=== PATIENT | female | born 1965 | race Caucasian/White ===

== ENCOUNTER 2016-10-06 08:54 | Emergency (ER) | payer OTHER ==
[~2016-10-06] VITALS: Ht 160 cm; Wt 134.4 kg
[~2016-10-06 08:54] MED LIST: CEFAZOLIN 3000 MG/65 ML D5W IV SCH
[2016-10-06 08:59] VITALS: Ht 160 cm; Wt 134.4 kg
[2016-10-06] MEDS ORDERED: SODIUM CHLORIDE 0.9% 1000ML 1,000 ML IV STA ×2 (09:42→14:16)
[2016-10-06] MEDS ORDERED: ONDANSETRON INJ 2 MG/ML 2 ML VIAL IV STA (09:42)
[2016-10-06] MEDS ORDERED: HYDROmorphone INJ 1 MG/ML SYR IV STA (09:42)
[2016-10-06 09:56] LABS: BASO % 0.3 %; BASO ABS # 0.03 K/uL (0-0.2); COMPLETE YES; EOS % 0.3 %; HEMATOCRIT 40.7 % (37-47); IG% 0.7 %; LYMPH % 13.3 %; LYMPH ABS # 1.56 K/uL (1.2-3.4); MEAN CELL VOLUME 85.7 fL (80-100); MEAN CORPUSCULAR HEMOGLOBIN 29.7 pg (25-34); MEAN CORPUSCULAR HGB CONC 34.6 g/dl (32-36); MEAN PLATELET VOLUME 11.7 fL (7.4-10.4); MONO % 3.8 %; NEUT % 81.6 %; PLATELET COUNT 186 K/uL (130-400); RED BLOOD COUNT 4.75 M/uL (4.2-5.4); WHITE BLOOD COUNT 11.74 K/uL (4.8-10.8)
[2016-10-06 10:03] LABS: URINE APPEARANCE CLEAR (CLEAR); URINE BILIRUBIN NEG (NEG); URINE COLOR YELLOW; URINE EPITHELIAL CELL AUTO >30 /lpf (0-5); URINE NITRITE NEG (NEG); URINE SPECIFIC GRAVITY 1.023 (1.000-1.030); UROBILINOGEN NEG (NEG); ZZUR CULT IF INDIC CLEAN CATCH NO
[2016-10-06 10:07] LABS: MANUAL MICROSCOPIC REQUIRED? NO; REVIEW REQ? NO
[2016-10-06 10:16] LABS: BUN/CREATININE RATIO 16.8 (10-20); CREATININE 0.87 mg/dl (0.60-1.20); MAGNESIUM 1.7 mg/dl (1.8-2.4); POTASSIUM 4.4 mmol/L (3.5-5.1)
[2016-10-06 10:17] LABS: CALCIUM 8.9 mg/dl (8.5-10.1)
[2016-10-06] MEDS ORDERED: INSDGIPEN SC (10:20)
[2016-10-06] MEDS ORDERED: METF-841 PO (10:20)
[2016-10-06] MEDS ORDERED: ATOR-22 PO (10:20)
[2016-10-06] MEDS ORDERED: LSN5 PO (10:20)
--- NOTE | 2016-10-06 10:38 | DIAGNOSTIC IMAGING REPORT ---
ABDOMEN AND PELVIS CT WITHOUT CONTRAST CT DOSE: 1289.64 mGycm HISTORY: Flank pain R flank pain, renal stone? TECHNIQUE: Multiaxial CT images of the abdomen and pelvis were performed without contrast. COMPARISON STUDY: None. FINDINGS: Lung bases are clear. Left kidney is negative for hydronephrosis. There is a 2 mm nonobstructing renal vascular calcification mid pole left kidney. Right kidney demonstrates moderate hydronephrosis. There is mild perinephric infiltrative change. Multiple calcifications the right kidney are present. There is a partially obstructing calculus at the right ureteral pelvic junction measuring 11 x 8 mm. There is no evidence for an obstructing ureteral calcification. Bowel pattern is nonobstructive. Bladder is midline. The appendix is normal. IMPRESSION: 1. Obstructing calculus right ureteral pelvic junction measuring 11 x 8 mm. 2. Moderate right renal hydronephrosis with mild infiltrative change of the right renal perinephric fat. 3. Multiple additional nonobstructing right renal calcifications. Electronically signed by: Shiva Rushing M.D. 10/06/2016 10:36 AM Dictated Date/Time: 10/06/2016 10:33 AM
[2016-10-06] MEDS ORDERED: NovoLIN-R INSULIN PER UNIT CHARGE SC STA (10:51)
[2016-10-06] MEDS ORDERED: HYDROmorphone INJ 1 MG/ML SYR IV PRN (12:30)
--- NOTE | 2016-10-06 14:03 | EMERGENCY ROOM VISIT NOTE ---
History Report prepared by Valeria: Ibis Casas Under the Supervision of: Dr. Jojo Abdullahi M.D. First contact with patient: 09:21 Chief Complaint: FLANK PAIN Stated Complaint: PAIN IN R SIDE, COLD SWEATS, NAUSEOUS History of Present Illness The patient is a 51 year old female who presents to the Emergency Room with complaints of waxing and waning right flank pain that started 4 hours ago, around 0530. The patient states that the pain started in her right lower back then radiated into the right side of her abdomen. She describes the pain as a dull ache that is intermittently sharp. The patient is unsure of if she has experienced any fevers, but states that she has experienced "cold sweats" twice today with the pain. She denies any burning with urination. The patient has a history of a cholecystectomy and 2 sections. She still has her appendix. The patient denies any personal history of kidney stones, but states that she has a family history of kidney stones. The patient has diabetes and states that her blood sugars have been running in the 200s. She uses insulin at home and states that her BSG yesterday morning was 190. The patient has not checked her BSG since then. Source of History: patient Onset: 4 hours ago, around 0530 Position: abdomen (right-sided) Quality: ache, sharp (intermittently), dull Timing: waxes/wanes Associated Symptoms: No urinary symptoms (burning with urination) Note: cold sweats Review of Systems See HPI for pertinent positives & negatives. A total of 10 systems reviewed and were otherwise negative. Past Medical & Surgical Medical Problems: (1) Diabetes (2) Hypertension Surgical Problems: (1) History of section (2) History of cholecystectomy Family History Cancer Diabetes mellitus Gallbladder disease Heart disease Hypertension Kidney disease Kidney stones Social History Smoking Status: Never Smoker Smokeless Tobacco Use: No Alcohol Use: occasionally Marital Status: Housing Status: lives with family Occupation Status: employed Current/Historical Medications Scheduled Atorvastatin (Lipitor), 20 MG PO DAILY Insulin Glargine (Lantus Solostar), 28 UNITS SC HS Lisinopril (Lisinopril), 5 MG PO DAILY Metformin HCl (Metformin HCl ER), 1,000 MG PO BID Allergies Coded Allergies: No Known Allergies (Verified Allergy, Unknown, 11/15/02) Physical Exam Vital Signs Date Time Temp Pulse Resp B/P (MAP) Pulse Ox O2 Delivery O2 Flow Rate FiO2 10/06/16 14:08 78 20 175/104 95 Room Air 10/06/16 11:37 151/90 10/06/16 11:34 74 22 196/118 94 Room Air 10/06/16 08:59 36.7 86 20 96 Room Air Physical Exam Vital signs reviewed. General: Well-appearing female, in no significant distress. HEENT: No scleral icterus, PERRLA, neck supple. Atraumatic. Cardiovascular: Regular rate and rhythm, no extra sounds. Pulmonary: Clear to auscultation bilaterally, normal work of breathing. Abdomen: Soft, obese, nontender, nondistended, positive bowel sounds. Musculoskeletal: Atraumatic, mild right flank tenderness, no peripheral edema. Neurologic: Patient awake alert and oriented x 3 Skin: Warm, dry, no rash Medical Decision & Procedures ER Provider Diagnostic Interpretation: CT results as stated below per my review and radiologist interpretation: ABDOMEN AND PELVIS CT WITHOUT CONTRAST FINDINGS: Lung bases are clear. Left kidney is negative for hydronephrosis. There is a 2 mm nonobstructing renal vascular calcification mid pole left kidney. Right kidney demonstrates moderate hydronephrosis. There is mild perinephric infiltrative change. Multiple calcifications the right kidney are present. There is a partially obstructing calculus at the right ureteral pelvic junction measuring 11 x 8 mm. There is no evidence for an obstructing ureteral calcification. Bowel pattern is nonobstructive. Bladder is midline. The appendix is normal. IMPRESSION: 1. Obstructing calculus right ureteral pelvic junction measuring 11 x 8 mm. 2. Moderate right renal hydronephrosis with mild infiltrative change of the right renal perinephric fat. 3. Multiple additional nonobstructing right renal calcifications. Electronically signed by: Shiva Rushing M.D. 10/06/2016 10:36 AM Dictated Date/Time: 10/06/2016 10:33 AM Laboratory Results 10/06/16 09:35 Red Blood Count 4.75, Mean Corpuscular Volume 85.7, Mean Corpuscular Hemoglobin 29.7, Mean Corpuscular Hemoglobin Concent 34.6, Mean Platelet Volume 11.7, Neutrophils (%) (Auto) 81.6, Lymphocytes (%) (Auto) 13.3, Monocytes (%) (Auto) 3.8, Eosinophils (%) (Auto) 0.3, Basophils (%) (Auto) 0.3, Neutrophils # (Auto) 9.59, Lymphocytes # (Auto) 1.56, Monocytes # (Auto) 0.45, Eosinophils # (Auto) 0.03, Basophils # (Auto) 0.03 10/06/16 09:35 Test 10/06/16 09:35 10/06/16 12:02 White Blood Count 11.74 K/uL (4.8-10.8) Red Blood Count 4.75 M/uL (4.2-5.4) Hemoglobin 14.1 g/dL (12.0-16.0) Hematocrit 40.7 % (37-47) Mean Corpuscular Volume 85.7 fL (80-100) Mean Corpuscular Hemoglobin 29.7 pg (25-34) Mean Corpuscular Hemoglobin Concent 34.6 g/dl (32-36) Platelet Count 186 K/uL (130-400) Mean Platelet Volume 11.7 fL (7.4-10.4) Neutrophils (%) (Auto) 81.6 % Lymphocytes (%) (Auto) 13.3 % Monocytes (%) (Auto) 3.8 % Eosinophils (%) (Auto) 0.3 % Basophils (%) (Auto) 0.3 % Neutrophils # (Auto) 9.59 K/uL (1.4-6.5) Lymphocytes # (Auto) 1.56 K/uL (1.2-3.4) Monocytes # (Auto) 0.45 K/uL (0.11-0.59) Eosinophils # (Auto) 0.03 K/uL (0-0.5) Basophils # (Auto) 0.03 K/uL (0-0.2) RDW Standard Deviation 39.9 fL (36.4-46.3) RDW Coefficient of Variation 12.6 % (11.5-14.5) Immature Granulocyte % (Auto) 0.7 % Immature Granulocyte # (Auto) 0.08 K/uL (0.00-0.02) Urine Color YELLOW Urine Appearance CLEAR (CLEAR) Urine pH 5.0 (4.5-7.5) Urine Specific [place] 1.023 (1.000-1.030) Urine Protein NEG (NEG) Urine Glucose (UA) 3+ (NEG) Urine Ketones 1+ (NEG) Urine Occult Blood NEG (NEG) Urine Nitrite NEG (NEG) Urine Bilirubin NEG (NEG) Urine Urobilinogen NEG (NEG) Urine Leukocyte Esterase TRACE (NEG) Urine WBC (Auto) 5-10 /hpf (0-5) Urine RBC (Auto) 0-4 /hpf (0-4) Urine Hyaline Casts (Auto) 1-5 /lpf (0-5) Urine Epithelial Cells (Auto) >30 /lpf (0-5) Urine Bacteria (Auto) NEG (NEG) Urine Test NEG (NEG) Anion Gap 11.0 mmol/L (3-11) Est Creatinine Clear Calc Drug Dose 102.9 ml/min Estimated GFR () 89.4 Estimated GFR (Non- 77.1 BUN/Creatinine Ratio 16.8 (10-20) Calcium Level 8.9 mg/dl (8.5-10.1) Magnesium Level 1.7 mg/dl (1.8-2.4) Total Bilirubin 0.5 mg/dl (0.2-1) Direct Bilirubin 0.1 mg/dl (0-0.2) Aspartate Amino Transf (AST/SGOT) 21 U/L (15-37) Alanine Aminotransferase (ALT/SGPT) 34 U/L (12-78) Alkaline Phosphatase 114 U/L (45-117) Total Protein 7.4 gm/dl (6.4-8.2) Albumin 3.6 gm/dl (3.4-5.0) Lipase 147 U/L (73-393) Bedside Glucose 258 mg/dl (70-90) Laboratory results per my review. Medications Administered Medications (Trade) Dose Ordered Sig/Loren Route Start Time Stop Time Status Last Admin Dose Admin Sodium Chloride 1,000 ml @ 999 mls/hr Q1H1M STAT IV 10/06/16 09:42 10/06/16 10:42 DC 10/06/16 09:52 999 MLS/HR Hydromorphone HCl (Dilaudid Inj) 1 mg NOW STAT IV 10/06/16 09:42 10/06/16 09:44 DC 10/06/16 09:53 1 MG Ondansetron HCl (Zofran Inj) 4 mg NOW STAT IV 10/06/16 09:42 10/06/16 09:44 DC 10/06/16 09:53 4 MG Insulin Human Regular (novoLIN-R U-100 PER UNIT) 10 units NOW STAT TN 10/06/16 10:51 10/06/16 10:53 DC 10/06/16 11:35 10 UNITS ED Course 0935: Past medical records reviewed. The patient was evaluated in room B3. A complete history and physical examination was performed. 0942: Ordered Zofran Inj 4 mg IV, Dilaudid Inj 1 mg IV, Sodium Chloride 1000 ml @ 999 mls/hr IV 1051: Ordered Insulin Human Regular 10 units SC 1139: I reviewed the patient's case with Dr. Juliano Cottrell. She is going to place a stent for the patient around 1630. She will then discharge the patient. 1230: Ordered Dilaudid Inj 1 mg IV 1231: Upon reevaluation, the patient is resting comfortably. I discussed laboratory and radiographic results with her. She verbalized agreement of the treatment plan. I spoke with Dr. Juliano Cottrell. She is going to evaluate the patient for further management and care then she will discharge her home. Medical Decision Differentials include renal colic, appendicitis, diverticulitis, mesenteric ischemia, aortic pathology, infections, inflammatory bowel disease, PUD, biliary pathology, UTI. Medication Reconciliation: I attest that I have personally reviewed the patient' s current medication list. Blood Pressure Screening: Patient was found to have an elevated blood pressure and was referred to their primary doctor for recheck and further treatment. This patient was evaluated and appeared to be in no significant distress. Physical examination is fairly unrevealing. The patient does have mild right- sided abdominal discomfort. CT scan of the abdomen and pelvis was performed and reveals an 11 m stone at the proximal ureter on the right. The patient was given IV Dilaudid, IV Zofran and hydrated with normal saline solution. UA is negative for infection. The patient's case was discussed with Dr. Henao of urology who has agreed to place a ureteral stent in the patient later this afternoon. They can then address the stone electively as an outpatient. The patient was informed of the findings and agrees with the plan. She was observed in the ER for several hours until oh or became available. Consults Time Called: [phone] Consulting Physician: Dr. Juliano Cottrell Returned Call: [phone] I reviewed the patient's case with Dr. Henao - Urology. She is going to place a stent for the patient around 1630. She will then discharge the patient. Impression Primary Impression: Kidney stone on right side Scribe Attestation The scribe's documentation has been prepared under my direction and personally reviewed by me in its entirety. I confirm that the note above accurately reflects all work, treatment, procedures, and medical decision making performed by me. Departure Information Dispostion Other (Being Evaluated by Urologist) Referrals No Doctor, Assigned (PCP) Patient Instructions My [facility]
[2016-10-06 14:08] VITALS: O2SAT 95
[2016-10-06] MEDS ORDERED: LIDOCAINE HCL 2% 2 ML VIAL (20MG/ML) ONE (14:25)
[2016-10-06] MEDS ORDERED: MIDAZOLAM HCL 1 MG/ML 2ML VIAL ONE (14:25)
[2016-10-06] MEDS ORDERED: ONDANSETRON INJ 2 MG/ML 2 ML VIAL ONE (14:25)
[2016-10-06] MEDS ORDERED: PROPOFOL IV EMULSION 10 MG/ML 20 ML VIAL IV ONE (14:25)
[2016-10-06] MEDS ORDERED: FENTANYL CITRATE INJ 50 MCG/1 ML 2 ML VIAL ONE (14:25)
[2016-10-06 14:26] LABS: PREG INTERNAL NEGATIVE QC NEG CLEAR BACKGROUND; PREG INTERNAL POSITIVE QC POS CONTROL LINE
[2016-10-06] MEDS ORDERED: CEFAZOLIN IV 3,000 MG/65 ML D5W IV ONE (15:33)
--- NOTE | 2016-10-06 15:40 | History and Physical ---
History Date of Service: Oct 06, 2016. Chief Complaint: right kidney and ureteral stones Primary Care Physician: Zulma Tripp D.O. Pt seen a urologist before?: No History of Present Illness I am asked by Dr Abdullahi to evaluate and treat patient for kidney stones. She presents to ER with severe right flank pain. She has associated nausea.. She has not had emesis. she has not had stones in past but she had similar milder pain last year. Her ct shows an obstructing right upj stone and 3 other large right renal stones. Imaging CT Laboratory Results Past 24 Hours Test 10/06/16 09:35 10/06/16 12:02 Range/Units White Blood Count 11.74 4.8-10.8 K/uL Red Blood Count 4.75 4.2-5.4 M/uL Hemoglobin 14.1 12.0-16.0 g/dL Hematocrit 40.7 37-47 % Mean Corpuscular Volume 85.7 80-100 fL Mean Corpuscular Hemoglobin 29.7 25-34 pg Mean Corpuscular Hemoglobin Concent 34.6 32-36 g/dl Platelet Count 186 130-400 K/uL Mean Platelet Volume 11.7 7.4-10.4 fL Neutrophils (%) (Auto) 81.6 % Lymphocytes (%) (Auto) 13.3 % Monocytes (%) (Auto) 3.8 % Eosinophils (%) (Auto) 0.3 % Basophils (%) (Auto) 0.3 % Neutrophils # (Auto) 9.59 1.4-6.5 K/uL Lymphocytes # (Auto) 1.56 1.2-3.4 K/uL Monocytes # (Auto) 0.45 0.11-0.59 K/uL Eosinophils # (Auto) 0.03 0-0.5 K/uL Basophils # (Auto) 0.03 0-0.2 K/uL RDW Standard Deviation 39.9 36.4-46.3 fL RDW Coefficient of Variation 12.6 11.5-14.5 % Immature Granulocyte % (Auto) 0.7 % Immature Granulocyte # (Auto) 0.08 0.00-0.02 K/uL Urine Color YELLOW Urine Appearance CLEAR CLEAR Urine pH 5.0 4.5-7.5 Urine Specific Sharon 1.023 1.000-1.030 Urine Protein NEG NEG Urine Glucose (UA) 3+ NEG Urine Ketones 1+ NEG Urine Occult Blood NEG NEG Urine Nitrite NEG NEG Urine Bilirubin NEG NEG Urine Urobilinogen NEG NEG Urine Leukocyte Esterase TRACE NEG Urine WBC (Auto) 5-10 0-5 /hpf Urine RBC (Auto) 0-4 0-4 /hpf Urine Hyaline Casts (Auto) 1-5 0-5 /lpf Urine Epithelial Cells (Auto) >30 0-5 /lpf Urine Bacteria (Auto) NEG NEG Urine Test NEG NEG Sodium Level 137 136-145 mmol/L Potassium Level 4.4 3.5-5.1 mmol/L Chloride Level 101 98-107 mmol/L Carbon Dioxide Level 25 21-32 mmol/L Anion Gap 11.0 3-11 mmol/L Blood Urea Nitrogen 15 7-18 mg/dl Creatinine 0.87 0.60-1.20 mg/dl Est Creatinine Clear Calc Drug Dose 102.9 ml/min Estimated GFR () 89.4 Estimated GFR (Non- 77.1 BUN/Creatinine Ratio 16.8 10-20 Random Glucose 300 70-99 mg/dl Calcium Level 8.9 8.5-10.1 mg/dl Magnesium Level 1.7 1.8-2.4 mg/dl Total Bilirubin 0.5 0.2-1 mg/dl Direct Bilirubin 0.1 0-0.2 mg/dl Aspartate Amino Transf (AST/SGOT) 21 15-37 U/L Alanine Aminotransferase (ALT/SGPT) 34 12-78 U/L Alkaline Phosphatase 114 45-117 U/L Total Protein 7.4 6.4-8.2 gm/dl Albumin 3.6 3.4-5.0 gm/dl Lipase 147 73-393 U/L Bedside Glucose 258 70-90 mg/dl Labs were reviewed and are within normal limits unless listed below. Labs are available in the chart and at [facility] Problem List Medical Problems: (1) Diabetes Status: Chronic (2) Hypertension Status: Chronic (3) Kidney stone on right side Status: Acute Surgical Problems: (1) History of section Status: Chronic (2) History of cholecystectomy Status: Chronic Past History Past Medical History: diabetes, hypertension Past Surgical History: , cholecystectomy Family History Cancer Diabetes mellitus Gallbladder disease Heart disease Hypertension Kidney disease Kidney stones Social History Hx Tobacco Use In Past Year?: No Smoking: non-smoker Alcohol: socially Marital status: Housing status: lives with family Occupation status: employed History of MDRO No Allergies Coded Allergies: No Known Allergies (Verified Allergy, Unknown, 11/15/02) Medications Home Medications: Home Meds and Scripts Medications Dose Route/Sig Max Daily Dose Days Date Category Dose Instructions Lisinopril 5 Mg Tab 5 Mg PO DAILY 10/06/16 Reported Lipitor (Atorvastatin Calcium) 20 Mg Tab 20 Mg PO DAILY 10/06/16 Reported Metformin HCl ER (Metformin HCl) 1,000 Mg Tab 1,000 Mg PO BID 10/06/16 Reported Lantus Solostar (Insulin Glargine) 100 Unit/Ml Inj 28 Units SC HS 10/06/16 Reported PATIENT SAYS 35 UNITS AT BEDTIME Inpatient Medications: Current Inpatient Medications Medications (Trade) Dose Ordered Sig/Loren Route Start Time Stop Time Status Last Admin Dose Admin Hydromorphone HCl (Dilaudid Inj) 1 mg Q1HWA PRN IV 10/06/16 12:30 10/20/16 12:29 Sodium Chloride 1,000 ml @ 125 mls/hr Q8H STAT IV 10/06/16 14:16 10/06/16 22:15 Review of Systems Review of Systems Constitutional: No fever, No chills, No frequent headaches Endocrine: No excessive thirst, No too hot, No too cold, No tired/sluggish Gastrointestinal: + nausea, No vomiting, No constipation Cardiovascular: No chest pain, No palpitations Respiratory: No shortness of breath, No wheezing, No chronic cough Female : + kidney stones, No frequent urination Physical Exam Vital Signs: Vital Signs Past 12 Hours Date Time Temp Pulse Resp B/P (MAP) Pulse Ox O2 Delivery O2 Flow Rate FiO2 10/06/16 14:08 78 20 175/104 95 Room Air 10/06/16 11:37 151/90 10/06/16 11:34 74 22 196/118 94 Room Air 10/06/16 08:59 36.7 86 20 96 Room Air Physical Exam: General Appearance: WD/WN, no apparent distress, + obese Eyes: bilateral eyes normal inspection ENT: hearing grossly normal Neck: no adenopathy, no JVD, trachea midline Respiratory/Chest: no respiratory distress, no accessory muscle use Cardiovascular: regular rate, rhythm Extremities: non-tender, normal inspection, no pedal edema Neurologic/Psychiatric: alert, normal mood/affect, oriented x 3 Skin: normal color, warm/dry, no rash Lymphatic: no adenopathy Assessment & Plan Assessment & Plan large right stones plan stent today in OR under iv sedation plan right ureteroscopy in 2 weeks to remove stones. she is agreeable to plan and signed consent ancef biometrics consultant.
[2016-10-06] MEDS ORDERED: LABETALOL HCL IV 5 MG/ML 20ML IV ONE ×2 (15:57→16:22)
[2016-10-06] MEDS ORDERED: BELLADONNA/OPIUM SUPP 60 MG SUPP PR ONE ×2 (16:02)
--- NOTE | 2016-10-06 16:15 | [facility] Operative Report ---
Operative Report Operative Date Oct 06, 2016. Pre-Operative Diagnosis obstructing right ureteral stone Post-Operative Diagnosis same Procedure(s) Performed cysto right stent Surgeon Dr. 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 we plan stent to stage surgery. Description of Procedure Patient was sedated and placed in lithotomy position. Her genitals were prepped and draped in sterile fashion. Time out held with team. Her obesity makes exposure of the urethral meatus difficult due to large amount soft tissue. She also is under light sedation and scoots away with attempts at adequate manual retraction of the labia. I finally placed a half speculum to gain visualization of the urethra and placed cystoscope. I placed a 21 fr rigid cystoscope to bladder. The urethra is unremarkable. The UOs are laterally displaced. I placed a road runner wire up right ureter and placed a 24 centimeter 6 Fr double J stent easily. There is brisk efflux after placement. I left bladder empty and concluded case. I placed a belladonna and opium suppository for post-op pain. She transferred to recovery under my escort, in stable condition. 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 Any exceptions are noted below.
[2016-10-06] MEDS ORDERED: PHEN-775 PO (16:17)
[2016-10-06] MEDS ORDERED: TAMS0.4C38 PO (16:17)
[2016-10-06] MEDS ORDERED: OXYC-57 PO (16:17)
--- NOTE | 2016-10-06 16:17 | DIAGNOSTIC IMAGING REPORT ---
KUB HISTORY: Right UPJ obstructing stone. FLUOROSCOPY TIME: 7 seconds. FINDINGS: 3 fluoroscopic spot images were submitted for review. There is a guidewire seen within the right ureter placed within a retrograde fashion. This extends into the right renal pelvis. There appears to be a stone near the right renal pelvis IMPRESSION: Fluoroscopy provided for right ureteral stent placement. Electronically signed by: Johnathon Hood M.D. 10/06/2016 4:16 PM Dictated Date/Time: 10/06/2016 4:15 PM
[2016-10-06] MEDS ORDERED: NURSING VERBAL MED ORDER ONE ×3 (16:20→16:43)
--- NOTE | 2016-10-06 16:21 | Discharge Instructions ---
Discharge Instructions Date of Service Oct 06, 2016. Admission Reason for Admission: Pain In R Side, Cold Sweats, Nauseous Discharge Discharge Diagnosis / Problem: right ureteral stone with obstruction Discharge Goals Goal(s): Decrease discomfort, Improve function, Improve disease control Activity Recommendations Activity Limitations: resume your previous activity Lifting Limitations: none Exercise/Sports Limitations: none May Resume Sexual Activity: when tolerated Shower/Bathe: no limitations Driving or Machine Use: resume 1 day after discharge . Instructions / Follow-Up Instructions / Follow-Up may return to work on Saturday October 08, 2016 no restrictions you may have bleeding from genitals the stent will make you feel like you need to pass your urine more often Use tylenol or ibuprofen for mild to moderate pain. use narcotic only for severe pain. do not take narcotic at bedtime as you are at high risk for sleep apnea and sudden from narcotics depressing breathing while asleep. Discharge Diet Recommended Diet: Diabetes Type 2 Diet Fluid Restriction: None Procedures Procedures Performed: cystoscopy, placement of right ureteral stent Pending Studies Studies pending at discharge: no Medical Emergencies . Who to Call and When: Medical Emergencies: If at any time you feel your situation is an emergency, please call 911 immediately. . Non-Emergent Contact Non-Emergency issues call your: Urologist ([phone]) Call Non-Emergent contact if: temperature is above 100.5, your pain is not controlled . . "Provider Documentation" section prepared by Sharona Henao. . VTE Core Measure Inpt VTE Proph given/why not?: SCD's [place] Drug Monitoring Program Search Results: patient reviewed within database, no issues identified
[2016-10-06] MEDS ORDERED: NovoLIN-R INSULIN PER UNIT CHARGE ONE (16:23)
[2016-10-06] MEDS ORDERED: HydrALAZINE HCL 20 MG/ML VIAL ONE (16:43)
[2016-10-06] MEDS ORDERED: ONDANSETRON INJ 2 MG/ML 2 ML VIAL IV PRN (16:45)
[2016-10-06] MEDS ORDERED: FENTANYL CITRATE INJ 50 MCG/1 ML 2 ML VIAL IV PRN (16:45)
[2016-10-06] MEDS ORDERED: ATROPINE SULFATE 0.1 MG/ML 5ML SYR IV PRN (16:45)
[2016-10-06] MEDS ORDERED: EpHEDrine SULFATE INJ 50 MG/ML AMP IV PRN (16:45)
--- NOTE | 2016-10-06 17:06 | Anesthesiology Progress Note ---
Anesthesia Post Op Note Date & Time Oct 06, 2016 at 17:06 Vital Signs Pain Intensity: 0 Vital Signs Past 12 Hours Date Time Temp Pulse Resp B/P (MAP) Pulse Ox O2 Delivery O2 Flow Rate FiO2 10/06/16 16:45 79 16 175/88 92 Room Air 10/06/16 16:35 83 16 186/95 94 Room Air 10/06/16 16:25 83 16 189/93 98 Oxymask 10 10/06/16 16:15 83 16 182/103 98 Oxymask 10 10/06/16 16:09 36.4 83 16 178/98 98 Oxymask 10 10/06/16 14:08 78 20 175/104 95 Room Air 10/06/16 11:37 151/90 10/06/16 11:34 74 22 196/118 94 Room Air 10/06/16 08:59 36.7 86 20 96 Room Air Notes Mental Status: alert / awake / arousable, participated in evaluation Pt Amnestic to Procedure: Yes Nausea / Vomiting: adequately controlled Pain: adequately controlled Airway Patency, RR, SpO2: stable & adequate BP & HR: stable & adequate Hydration State: stable & adequate Anesthetic Complications: no major complications apparent
[2016-10-06 17:10] VITALS: BP 153/89; PULSE 88; TEMP 36.9; O2SAT 94
[2016-10-06 17:40] VITALS: BP 167/96; PULSE 74; TEMP 37; O2SAT 94
[2016-10-06 18:00] VITALS: BP 166/92; PULSE 82; TEMP 37; O2SAT 95
[2016-10-17] MEDS ORDERED: ANTICRE6 PO (10:09)
[2016-10-17] MEDS ORDERED: ASPI-435 PO (10:09)
[2016-10-22] MEDS ORDERED: TAMS0.4C38 PO ×2 (07:20→10:36)
[2016-10-22] MEDS ORDERED: PHEN-775 PO (10:36)
[2016-10-22] MEDS ORDERED: OXYC1CAP5 PO (10:36)
[2016-12-12] MEDS ORDERED: ULT50X PO (12:03)
[2016-12-12] MEDS ORDERED: FLM4 PO (12:03)
[2016-12-12] MEDS ORDERED: INSDGIPEN SC (12:03)
[2016-12-12] MEDS ORDERED: NVLGIPEN SC (12:03)
[2016-12-12] MEDS ORDERED: CEFT1INJ6 IV (12:03)
[2016-12-15] MEDS ORDERED: VNTHFA/IN INH (09:13)
[2016-12-15] MEDS ORDERED: FLM4 PO (09:13)
[2016-12-15] MEDS ORDERED: CEFT1INJ57 IV ×2 (09:16→09:36)
[2016-12-15] MEDS ORDERED: OXYC-57 PO (09:18)
[2016-12-15] MEDS ORDERED: INSDGIPEN INJ (09:36)
[2016-12-15] MEDS ORDERED: NVLG INJ (09:36)
[2016-12-17] MEDS ORDERED: FLM4 PO (10:54)
[2016-12-17] MEDS ORDERED: OXYC-57 PO (10:54)
== END 2016-10-06 14:14 | disposition home or self-care (01) ==
LOC: C.EDB 08:55
DX: N20.1 Calculus of ureter (principal); I10 Essential (primary) hypertension; E11.9 Type 2 diabetes mellitus without complications; Z90.49 Acquired absence of other specified parts of digestive tract; Z79.4 Long term (current) use of insulin; E66.9 Obesity, unspecified; Z68.43 Body mass index [BMI] 50.0-59.9, adult; Z83.3 Family history of diabetes mellitus; Z82.49 Family history of ischemic heart disease and other diseases of the circulatory system; Z84.1 Family history of disorders of kidney and ureter; Z80.9 Family history of malignant neoplasm, unspecified

== ENCOUNTER 2016-10-22 06:32 | Day surgery (SDC) | payer OTHER ==
[2016-10-17 10:15] VITALS: BMI 50.0
[~2016-10-22] VITALS: Ht 162.6 cm; Wt 132.5 kg
[~2016-10-22 06:32] MED LIST changes: +ANTICRE6 PO; +ASPI-435 PO; +ATOR-22 PO; +INSDGIPEN SC; +LACTATED RINGER'S 1000ML 1,000 ML IV SCH; +LSN5 PO; +METF-841 PO
--- NOTE | 2016-10-22 07:18 | History and Physical ---
History Date of Service: Oct 22, 2016. Chief Complaint: kidney stones Primary Care Physician: Zulma Tripp D.O. Pt seen a urologist before?: Yes If yes, why?: stones History of Present Illness Patient presents for stone removal surgery. She was urgently stented 2 weeks ago from the ER. She has an obstructing right ureteral stone. Stent pain has been mild. Laboratory Labs were reviewed and are within normal limits unless listed below. Labs are available in the chart and at [facility] Problem List Medical Problems: (1) Kidney stone on right side Status: Acute Past History Past Medical History: diabetes, hypertension, other (obesity ) Past Surgical History: , cholecystectomy Family History Cancer Diabetes mellitus Gallbladder disease Heart disease Hypertension Kidney disease Kidney stones Social History Hx Tobacco Use In Past Year?: No Smoking: non-smoker Alcohol: socially Marital status: Housing status: lives with family Occupation status: employed History of MDRO No Allergies Coded Allergies: No Known Allergies (Verified , 10/17/16) Medications Home Medications: Home Meds and Scripts Medications Dose Route/Sig Max Daily Dose Days Date Category [Antibiotic] 1 Tab PO HS 10/17/16 Reported Aspirin 81 (Aspirin) 81 Mg Tab 81 Mg PO QAM 10/17/16 Reported Lisinopril 5 Mg Tab 5 Mg PO DAILY 10/06/16 Reported Lipitor (Atorvastatin Calcium) 20 Mg Tab 20 Mg PO DAILY 10/06/16 Reported Metformin HCl ER (Metformin HCl) 1,000 Mg Tab 1,000 Mg PO BID 10/06/16 Reported Lantus Solostar (Insulin Glargine) 100 Unit/Ml Inj 36 Units SC HS 10/06/16 Reported Inpatient Medications: Current Inpatient Medications Medications (Trade) Dose Ordered Sig/Loren Route Start Time Stop Time Status Last Admin Dose Admin Lactated Ringer's 1,000 ml @ 15 mls/hr Q24H IV 10/22/16 06:00 10/23/16 05:59 Cefazolin Sodium 65 ml @ 100 mls/hr PREOP IV 10/22/16 06:00 10/22/16 18:00 Review of Systems Review of Systems Constitutional: No fever, No chills Gastrointestinal: No abdominal pain, No nausea, No vomiting Cardiovascular: No chest pain, No palpitations Respiratory: No shortness of breath, No chronic cough Female : + frequent urination, + blood in urine, + kidney stones Physical Exam Physical Exam: General Appearance: WD/WN, no apparent distress, + obese Eyes: bilateral eyes normal inspection ENT: hearing grossly normal Respiratory/Chest: lungs clear, normal breath sounds, no respiratory distress, no accessory muscle use Cardiovascular: regular rate, rhythm, no edema Extremities: non-tender, normal inspection, no pedal edema, no calf tenderness Neurologic/Psychiatric: alert, normal mood/affect, oriented x 3 Skin: normal color, warm/dry, no rash Assessment & Plan Assessment & Plan obstructing right ureteral stone plan cysto right ureteroscopy laser lithotripsy basket stone extraction stent exchange 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
[2016-10-22] MEDS ORDERED: TAMS0.4C38 PO ×2 (07:20→10:36)
[2016-10-22] MEDS ORDERED: MULT-506 PO (07:21)
[2016-10-22 07:30] VITALS: BP 174/80; PULSE 81; TEMP 36.7; O2SAT 95; Ht 162.6 cm; Wt 132.5 kg
[2016-10-22] MEDS ORDERED: MIDAZOLAM HCL 1 MG/ML 2ML VIAL ONE (07:59)
[2016-10-22] MEDS ORDERED: DEXAMETHASONE SOD INJ 4 MG/ML VIAL ONE (07:59)
[2016-10-22] MEDS ORDERED: LIDOCAINE HCL 2% 2 ML VIAL (20MG/ML) ONE (07:59)
[2016-10-22] MEDS ORDERED: FENTANYL CITRATE INJ 50 MCG/1 ML 2 ML VIAL ONE ×2 (07:59→09:01)
[2016-10-22] MEDS ORDERED: PROPOFOL IV EMULSION 10 MG/ML 20 ML VIAL IV ONE (07:59)
[2016-10-22] MEDS ORDERED: ONDANSETRON INJ 2 MG/ML 2 ML VIAL ONE (07:59)
[2016-10-22] MEDS ORDERED: FENTANYL CITRATE INJ 50 MCG/1 ML 2 ML VIAL IV PRN ×2 (08:45→09:15)
[2016-10-22] MEDS ORDERED: ONDANSETRON INJ 2 MG/ML 2 ML VIAL IV PRN ×2 (08:45→09:15)
[2016-10-22] MEDS ORDERED: EpHEDrine SULFATE INJ 50 MG/ML AMP IV PRN ×2 (08:45→09:15)
[2016-10-22] MEDS ORDERED: ATROPINE SULFATE 0.1 MG/ML 5ML SYR IV PRN ×2 (08:45→09:15)
[2016-10-22] MEDS ORDERED: PROMETHAZINE HCL INJ 6.25 MG in SODIUM CHLORIDE 0.9% 50ML 50 ML IV PRN ×2 (08:45→09:15)
[2016-10-22] MEDS ORDERED: FLUMAZENIL 0.1 MG/1 ML 10 ML VIAL IV ONE (08:58)
[2016-10-22] MEDS ORDERED: ROCURONIUM BROMIDE 10 MG/ML 5 ML VIAL ONE (09:54)
[2016-10-22] MEDS ORDERED: SUCCINYLCHOLINE 100MG/5ML SYR IV ONE (09:54)
[2016-10-22] MEDS ORDERED: BELLADONNA/OPIUM SUPP 60 MG SUPP PR ONE (10:11)
--- NOTE | 2016-10-22 10:31 | [facility] Operative Report ---
Operative Report Operative Date Oct 22, 2016. Pre-Operative Diagnosis Right renal stones Post-Operative Diagnosis same Procedure(s) Performed cysto right ureteroscopy laser lithotripsy basket stone extraction stent exchange Surgeon Dr. Sharona Henao Paper Winder Surgeon(s) None Estimated Blood Loss 3 mL Findings radio-opaque dense kidney stones Fluids 1200mL Specimens Permanent specimens A: Right renal stones for analysis Drains 6 fr 24 centimeter double j stent right ureter Anesthesia GET Complication(s) None Disposition Recovery Room / PACU Indications intermittently obstructing right UPJ stone caused colic in September. she was stented and now we plan to treat her 4 medium sized right kidney stones. Description of Procedure Patient was given general GET anesthesia and placed in lithotomy position. Her genitals were prepped and draped in sterile fashion. Time out held with team. I placed a half speculum in vagina to aid retraction. I placed a 21 fr rigid cystoscope to bladder easily. The urethra is unremarkable. The UOs are normal. Her stent is moderately encrusted already. I grasped stent tip and withdrew to meatus. I placed a stiff wire up right ureter thru stent to kidney and removed stent and found it to be intact. I then placed a second wire up right ureter. I placed a 1214 28 centimeter ureteral access sheath over the second wire to upper ureter. I placed a flex ureteroscope into kidney. I spent 90 minutes lasering the 4 large hard stones on the dusting setting of the holmium laser with the 200 micron fiber. I then removed about a dozen fragments. There are some small pieces and one large rind in a lower pole lateral recess of a calyx which I cannot reach today. I withdrew scope and sheath and ensured there were no ureteral fragments. I placed a 24 centimeter 6 Fr double J stent easily. There is brisk efflux after placement. I left bladder empty and concluded case. I placed a belladonna and opium suppository for post-op pain. She transferred to recovery under my escort, in stable condition. Plan: Home today Pyridium for dysuria x 3 days flomax daily oral pain meds as needed stent removal in one week kub prior ASA [] clean contaminated case [] seconds fluoro [] antibiotic environmental change analyst I attest to the content of the Intraoperative Record and any orders documented therein. Any exceptions are noted below.
[2016-10-22] MEDS ORDERED: OXYC1CAP5 PO (10:36)
[2016-10-22] MEDS ORDERED: PHEN-775 PO (10:36)
--- NOTE | 2016-10-22 10:40 | Discharge Instructions ---
Discharge Instructions Date of Service Oct 22, 2016. Admission Reason for Admission: Kidney Stones Discharge Discharge Diagnosis / Problem: right renal stones. Discharge Goals Goal(s): Improve disease control Activity Recommendations Activity Limitations: resume your previous activity Lifting Limitations: none Exercise/Sports Limitations: none May Resume Sexual Activity: when tolerated Shower/Bathe: no limitations Driving or Machine Use: resume 1 day after discharge . Instructions / Follow-Up Instructions / Follow-Up urine may be bloody for many days call with fever or uncontrolled pain try to use tylenol (500-650 mg every 4 hours and ibuprofen 800mg every 8 hours with food) for mild to moderate pain use oxycodone every 8 hours for severe pain. Do not use narcotic at bedtime due to risk of sleep apnea. we will take stent out next week. need an x-ray immediately prior to stent removal. Discharge Diet Recommended Diet: Diabetes Type 2 Diet Fluid Restriction: 2000 ml (8 cups) Procedures Procedures Performed: Cystoscopy, Right Flexible Ureteroscopy, Laser Lithotripsy, Basket Stone Extraction; Stent exchange Pending Studies Studies pending at discharge: no Medical Emergencies . Who to Call and When: Medical Emergencies: If at any time you feel your situation is an emergency, please call 911 immediately. . Non-Emergent Contact Non-Emergency issues call your: Urologist ([phone]) Call Non-Emergent contact if: temperature is above 100.5, your pain is not controlled . . "Provider Documentation" section prepared by Sharona Henao. . VTE Core Measure Inpt VTE Proph given/why not?: SCD's [place] Drug Monitoring Program Search Results: patient reviewed within database, no issues identified
[2016-10-22 11:30] VITALS: BP 173/83; PULSE 86; TEMP 36.8; O2SAT 88
--- NOTE | 2016-10-22 11:49 | Anesthesiology Progress Note ---
Anesthesia Post Op Note Date & Time Oct 22, 2016 at 11:48 Vital Signs Pain Intensity: 1 Vital Signs Past 12 Hours Date Time Temp Pulse Resp B/P (MAP) Pulse Ox O2 Delivery O2 Flow Rate FiO2 10/22/16 11:30 36.8 86 16 173/83 88 Room Air 10/22/16 11:15 36.4 94 16 180/105 94 Nasal Cannula 3 10/22/16 11:05 36.4 81 16 173/96 94 Nasal Cannula 3 10/22/16 10:55 84 16 165/99 93 Nasal Cannula 3 10/22/16 10:45 88 16 168/109 94 Mask 10 10/22/16 10:35 90 16 165/106 93 Mask 10 10/22/16 10:27 36.2 96 16 145/110 94 Mask 10 10/22/16 07:30 36.7 81 20 174/80 (111) 95 Room Air Notes Mental Status: alert / awake / arousable, participated in evaluation Pt Amnestic to Procedure: Yes Nausea / Vomiting: adequately controlled Pain: adequately controlled Airway Patency, RR, SpO2: stable & adequate BP & HR: stable & adequate Hydration State: stable & adequate Anesthetic Complications: no major complications apparent Diastolics were initially >100 in PACU. With awakening and weaning of O2, diastolics in 80s at the time of dispo without any interventions.
[2016-10-22 11:58] VITALS: BP 183/87; PULSE 84; O2SAT 94
--- NOTE | 2016-10-22 12:06 | DIAGNOSTIC IMAGING REPORT ---
KUB CLINICAL HISTORY: 51 year-old Female presenting with RIGHT LASER/LITHO AND STENT EXCHANGE. TECHNIQUE: 5 fluoroscopic spot images of the right ureter were obtained as part of a procedure performed by urology. COMPARISON: 10/06/2016. FINDINGS/IMPRESSION: A double-J right ureteral stent is noted in place at the start of the procedure. A wire was passed through the stent into the right urinary collecting system to the renal pelvis. A second wire was subsequently evident. The first stent was removed, and a second stent was passed over the second wire. The second stent appeared in good position at the conclusion of the procedure, terminating in the right renal pelvis and urinary bladder. Normal bowel gas pattern. Osseous structures unremarkable. Please refer to the urologic report for documentation of further procedural details. Electronically signed by: Gautam Brandon 10/22/2016 12:05 PM Dictated Date/Time: 10/22/2016 12:00 PM
[2016-10-22 12:30] VITALS: BP 189/85; PULSE 83; TEMP 36.9; O2SAT 93
[2016-12-12] MEDS ORDERED: FLM4 PO (12:03)
[2016-12-12] MEDS ORDERED: ULT50X PO (12:03)
[2016-12-12] MEDS ORDERED: CEFT1INJ6 IV (12:03)
[2016-12-12] MEDS ORDERED: INSDGIPEN SC (12:03)
[2016-12-12] MEDS ORDERED: NVLGIPEN SC (12:03)
[2016-12-15] MEDS ORDERED: VNTHFA/IN INH (09:13)
[2016-12-15] MEDS ORDERED: FLM4 PO (09:13)
[2016-12-15] MEDS ORDERED: CEFT1INJ57 IV ×2 (09:16→09:36)
[2016-12-15] MEDS ORDERED: OXYC-57 PO (09:18)
[2016-12-15] MEDS ORDERED: NVLG INJ (09:36)
[2016-12-15] MEDS ORDERED: INSDGIPEN INJ (09:36)
== END 2016-10-22 13:10 | disposition home or self-care (01) ==
LOC: C.ACU 06:32
PROVIDERS: ATTEND Urology
DX: N20.0 Calculus of kidney (principal); E11.9 Type 2 diabetes mellitus without complications; I10 Essential (primary) hypertension; E66.9 Obesity, unspecified; Z90.49 Acquired absence of other specified parts of digestive tract; Z83.3 Family history of diabetes mellitus; Z82.49 Family history of ischemic heart disease and other diseases of the circulatory system; Z84.1 Family history of disorders of kidney and ureter; N20.2 Calculus of kidney with calculus of ureter

== ENCOUNTER 2016-12-09 08:15 | Inpatient (IN) | payer OTHER ==
[~2016-12-09] VITALS: Ht 160 cm; Wt 135.5 kg
[~2016-12-09 08:15] MED LIST changes: -ANTICRE6 PO; -CEFAZOLIN 3000 MG/65 ML D5W IV SCH; -LACTATED RINGER'S 1000ML 1,000 ML IV SCH; +MULT-506 PO; +TAMS0.4C38 PO
[2016-12-09] MEDS ORDERED: SODIUM CHLORIDE 0.9% 1000ML 1,000 ML IV STA ×3 (08:42→21:38)
[2016-12-09] MEDS ORDERED: HYDROmorphone INJ 1 MG/ML SYR IV STA (08:44)
[2016-12-09] MEDS ORDERED: ONDANSETRON INJ 2 MG/ML 2 ML VIAL IV STA (08:44)
[2016-12-09] MEDS ORDERED: ACETAMINOPHEN 325 MG TAB PO STA (08:48)
--- NOTE | 2016-12-09 08:48 | EMERGENCY ROOM VISIT NOTE ---
History First contact with patient: 08:36 Chief Complaint: KIDNEY STONE Stated Complaint: KIDNEY STONE History of Present Illness The patient is a 51 year old female who presents to the Emergency Room via private vehicle with complaints of "kidney stone". The patient states she has a history of kidney stones, and was seen here in October and had lithotripsy performed. She states that she was doing well until 2:30 AM on Thursday, when she was awoke from sleep with severe right-sided flank pain. This was followed by emesis 1. She states the pain lasted all day until 10 PM. She states that the pain has been persistent, and now she feels feverish. She rates the right flank pain as a 6/10. She is not having for pain. There are associated chills. She denies any urinary symptoms. She denies any chance of . She follows with Dr. Henao of urology. Review of Systems A complete 10-point Review of Systems was discussed with the patient, with pertinent positives and negatives listed in the History of Present Illness. All remaining Review of Systems questions can be considered negative unless otherwise specified. Past Medical/Surgical History Medical Problems: (1) Asthma in remission (2) Diabetes mellitus type II, uncontrolled (3) H/O renal calculi (4) Hypertension (5) UTI (urinary tract infection) Surgical Problems: (1) History of section (2) History of cholecystectomy Family History Cancer Diabetes mellitus Gallbladder disease Heart disease Hypertension Kidney disease Kidney stones Social History Smoking Status: Never Smoker Alcohol Use: occasionally Marital Status: Housing Status: lives with family Occupation Status: employed Current/Historical Medications Scheduled Aspirin (Aspirin 81), 81 MG PO QAM Atorvastatin (Lipitor), 20 MG PO DAILY Insulin Glargine (Lantus Solostar), 36 UNITS SC HS Lisinopril (Lisinopril), 5 MG PO DAILY Metformin HCl (Metformin HCl ER), 1,000 MG PO BID Multivitamin (Multivitamin), 1 TAB PO DAILY Physical Exam Vital Signs Date Time Temp Pulse Resp B/P (MAP) Pulse Ox O2 Delivery O2 Flow Rate FiO2 12/09/16 12:20 37.2 114 22 178/106 Room Air 12/09/16 11:20 37.7 89 16 193/113 96 Room Air 12/09/16 10:35 38.4 109 20 172/127 92 Room Air 12/09/16 10:35 92 Room Air 12/09/16 10:33 109 12/09/16 08:29 38.3 118 18 180/70 94 Room Air Physical Exam VITAL SIGNS - Vital signs and nursing notes were reviewed. Patient is febrile at 38.3C, hypertensive and tachycardic at a rate of 118 bpm. She is nontoxic on examination GENERAL -51-year-old female appearing her stated age who is in no acute distress. Communicates well with provider and answers questions appropriately. SKIN - Without rashes. No petechial rashes. HEAD - NC/AT. EYES - Sclera anicteric. Palpebral conjunctiva pink and moist with no injection noted. NECK - Neck with FROM. Supple to palpation. No meningismus. LUNGS - Chest wall symmetric without accessory muscle use, intercostals retractions, or central cyanosis. Normal vesicular breath sounds CTA B/L. No wheezes, rales, or rhonchi appreciated. CARDIAC - RRR with S1/S2. No murmur, rubs, or gallops appreciated. ABDOMEN - Abdominal contour normal without pulsations or visible masses. BS normoactive all four quadrants. No tenderness, palpable masses, hepatosplenomegaly, or ascites noted. MUSCULOSKELETAL: There is tenderness upon palpation of the right CVA region. Medical Decision & Procedures ER Provider Diagnostic Interpretation: (RENAL)RETROPERITON COMP HISTORY: 51 years-old Female Right flank pain, febrile. Hx renal calculi COMPARISON: Abdominal radiographs 10/22/2016. TECHNIQUE: Multiple real-time sonographic images of the kidneys and urinary bladder were obtained assessing grayscale appearance and color flow. FINDINGS: The exam is somewhat limited secondary to patient body habitus. Right kidney measures 11.5 x 7.7 x 7.7 cm. Linear echogenicity in the region of the interpolar right kidney is seen, 0.4 cm suggesting calculus. There appears be mild dilation of the central renal collecting system on the right. Renal parenchyma is otherwise unremarkable. Left kidney measures 13.5 x 6.7 x 7.8 cm. There is a 0.4 cm non-shadowing calculus of the interpolar left kidney. No hydronephrosis. Parenchyma is within normal limits. Urinary bladder is partially collapsed with left ureteral jet noted. The right ureteral jet is not definitively seen. Diffuse increased echogenicity of the liver is incidentally noted suggesting fatty infiltration. IMPRESSION: 1. 0.4 cm calculus of the interpolar right kidney is noted with associated mild collecting system dilation suggesting hydronephrosis. The right ureteral jet is not identified. These findings could be further evaluated with CT. 2. 0.5 cm calculus of the left kidney noted without obstructive uropathy. 3. Fatty infiltration of the liver incidentally noted. The above report was generated using voice recognition software. It may contain grammatical, syntax or spelling errors. Electronically signed by: Jaya Devine M.D. 12/09/2016 10:12 AM Dictated Date/Time: 12/09/2016 10:[address] SCAN OF THE ABDOMEN AND PELVIS WITH IV CONTRAST CLINICAL HISTORY: Right flank pain. COMPARISON STUDY: Abdominal CT dated 10/06/2016 TECHNIQUE: Following the IV administration of 93 cc of Optiray 320, CT scan of the abdomen and pelvis is performed from the lung bases to the proximal femora. Images are reviewed in the axial, sagittal, and coronal planes. IV contrast was administered without complication. Automated dose control exposure was utilized. A dose lowering technique was utilized adhering to the principles of ALARA. CT DOSE: 1537.37 mGy.cm FINDINGS: Lung bases: The heart is normal in size and without pericardial effusion. The lung bases are clear. There is a small hiatal hernia. Liver: The contrast-enhanced liver is enlarged, measuring 26.6 cm in length. The liver demonstrates diffusely diminished attenuation consistent with severe hepatic steatosis. There is no intrahepatic biliary ductal dilatation. The hepatic veins and portal veins are patent. Gallbladder: Surgically absent noting clips in the gallbladder fossa. Spleen: Normal in size and attenuation. Pancreas: Moderately atrophic and grossly unremarkable. Adrenal glands: Unremarkable. Kidneys: The contrast enhanced kidneys are normal in size. There is a 17 mm obstructing calculus identified at the right ureteropelvic junction. This causes moderate to severe right-sided hydronephrosis. There is associated right-sided perinephric stranding and trace fluid. There are additional clusters of nonobstructing calculi in the lower pole of the right kidney. A 4 mm nonobstructing calculus is seen in the lower pole of left kidney. There is heterogeneously diminished perfusion of the right kidney as compared to the left. Urothelial thickening is noted in the right renal pelvis. There is a 1.7 cm indeterminant lesion in the upper pole of the right kidney seen on image #212. Abdominal vasculature: The abdominal aorta is normal in course and caliber. Bowel: The small bowel and colon are normal in course and caliber. The appendix is well-visualized and normal. Peritoneum: There is no intraperitoneal free air or abdominal ascites. Lymphadenopathy: None. Pelvic viscera: The bladder, uterus, and adnexa are normal as visualized. Skeletal structures: The skeletal structures appear osteopenic. Mild lumbosacral spondylosis is observed. No lytic or blastic lesions are seen. IMPRESSION: 1. There is a 17 mm obstructing calculus at the right ureteropelvic junction. This causes moderate to severe right-sided hydronephrosis. 2. Additional bilateral nonobstructing renal calculi as above. 3. There is heterogeneously diminished perfusion of the right kidney as compared to left as well as nonspecific urothelial thickening. This is likely related to obstruction and hydronephrosis. Correlate clinically and with urinalysis for evidence of superimposed infection. 4. Hepatomegaly and severe hepatic steatosis. 5. There is an indeterminant 1.7 cm partially exophytic lesion arising from the upper pole of the right kidney. This likely represents a cyst a copy definitively characterized. Follow-up with a nonemergent renal ultrasound is recommended for further assessment. 6. Additional findings as above. Electronically signed by: Myles Fisher M.D. 12/09/2016 11:12 AM Dictated Date/Time: 12/09/2016 11:02 AM Laboratory Results 12/09/16 08:54 Red Blood Count 4.83, Mean Corpuscular Volume 85.5, Mean Corpuscular Hemoglobin 30.0, Mean Corpuscular Hemoglobin Concent 35.1, Mean Platelet Volume 11.0, Neutrophils (%) (Auto) 86.5, Lymphocytes (%) (Auto) 5.2, Monocytes (%) (Auto) 7.7, Eosinophils (%) (Auto) 0.0, Basophils (%) (Auto) 0.2, Neutrophils # (Auto) 10.06, Lymphocytes # (Auto) 0.61, Monocytes # (Auto) 0.90, Eosinophils # (Auto) 0.00, Basophils # (Auto) 0.02 12/09/16 08:54 Test 12/09/16 00:00 12/09/16 08:54 12/09/16 09:04 Urine Color YELLOW Urine Appearance CLOUDY (CLEAR) Urine pH 5.0 (4.5-7.5) Urine Specific [place] 1.045 (1.000-1.030) Urine Protein 2+ (NEG) Urine Glucose (UA) 3+ (NEG) Urine Ketones 3+ (NEG) Urine Occult Blood 1+ (NEG) Urine Nitrite NEG (NEG) Urine Bilirubin NEG (NEG) Urine Urobilinogen NEG (NEG) Urine Leukocyte Esterase SMALL (NEG) Urine WBC (Auto) >30 /hpf (0-5) Urine RBC (Auto) 0-4 /hpf (0-4) Urine Hyaline Casts (Auto) 5-10 /lpf (0-5) Urine Epithelial Cells (Auto) >30 /lpf (0-5) Urine Bacteria (Auto) 2+ (NEG) White Blood Count 11.64 K/uL (4.8-10.8) Red Blood Count 4.83 M/uL (4.2-5.4) Hemoglobin 14.5 g/dL (12.0-16.0) Hematocrit 41.3 % (37-47) Mean Corpuscular Volume 85.5 fL (80-100) Mean Corpuscular Hemoglobin 30.0 pg (25-34) Mean Corpuscular Hemoglobin Concent 35.1 g/dl (32-36) Platelet Count 177 K/uL (130-400) Mean Platelet Volume 11.0 fL (7.4-10.4) Neutrophils (%) (Auto) 86.5 % Lymphocytes (%) (Auto) 5.2 % Monocytes (%) (Auto) 7.7 % Eosinophils (%) (Auto) 0.0 % Basophils (%) (Auto) 0.2 % Neutrophils # (Auto) 10.06 K/uL (1.4-6.5) Lymphocytes # (Auto) 0.61 K/uL (1.2-3.4) Monocytes # (Auto) 0.90 K/uL (0.11-0.59) Eosinophils # (Auto) 0.00 K/uL (0-0.5) Basophils # (Auto) 0.02 K/uL (0-0.2) RDW Standard Deviation 38.6 fL (36.4-46.3) RDW Coefficient of Variation 12.4 % (11.5-14.5) Immature Granulocyte % (Auto) 0.4 % Immature Granulocyte # (Auto) 0.05 K/uL (0.00-0.02) Anion Gap 8.0 mmol/L (3-11) Est Creatinine Clear Calc Drug Dose 76.4 ml/min Estimated GFR () 67.3 Estimated GFR (Non- 58.1 BUN/Creatinine Ratio 11.5 (10-20) Calcium Level 8.8 mg/dl (8.5-10.1) Magnesium Level 1.7 mg/dl (1.8-2.4) Beta-Hydroxybutyric Acid 11.58 mg/dL (0.2-2.81) Bedside Lactic Acid Venous 1.79 mmol/L (0.90-1.70) Medications Administered Medications (Trade) Dose Ordered Sig/Loren Route Start Time Stop Time Status Last Admin Dose Admin Sodium Chloride 1,000 ml @ 999 mls/hr Q1H1M STAT IV 12/09/16 08:42 12/09/16 09:42 DC 12/09/16 09:33 999 MLS/HR Sodium Chloride 1,000 ml @ 999 mls/hr Q1H1M STAT IV 12/09/16 08:44 12/09/16 09:44 DC 12/09/16 09:33 999 MLS/HR Hydromorphone HCl (Dilaudid Inj) 1 mg NOW STAT IV 12/09/16 08:44 12/09/16 08:46 DC 12/09/16 09:32 1 MG Ondansetron HCl (Zofran Inj) 4 mg NOW STAT IV 12/09/16 08:44 12/09/16 08:46 DC 12/09/16 09:32 4 MG Acetaminophen (Tylenol Tab) 650 mg NOW STAT PO 12/09/16 08:48 12/09/16 08:50 DC 12/09/16 09:31 650 MG Ceftriaxone Sodium (Rocephin Inj) 1 gm NOW STAT IV 12/09/16 11:17 12/09/16 11:18 DC 12/09/16 11:52 1 GM Acetaminophen (Tylenol Tab) 650 mg Q4H PRN PO 12/09/16 12:30 01/08/17 12:29 12/09/16 15:50 650 MG Medical Decision Patient was seen and evaluated as above. After obtaining a thorough history and physical examination IV access is initiated, and the above workup was performed. She was febrile. She was given Toradol. She was also given narcotics for pain. She is febrile, currently hypertensive, and is tachycardic. Concern is over pyelonephritis secondary to potential kidney stone. Ultrasound was obtained with results as above. Accommodation was to pursue CAT scan. This was discussed with the patient. CT scan was obtained which reveals a 17 mm calculus, as well as potential for infection which I believe she has secondary to her urinalysis, leukocytosis, afebrile as well as her tachycardia. She'll be given Rocephin secondary to be likely urinary source. At this time I believe that further management and the inpatient setting is warranted. I did discuss the case with the [facility] hospitalist team. Please refer to further documentation regarding her stay. She was thoroughly educated upon CT scan findings, to include incidentals which she is to follow-up with her family doctor upon discharge. In evaluation treatment this patient following differential diagnoses were entertained: Sepsis, pyelonephritis, infected renal calculi, renal calculi, among others. Impression Primary Impression: Right flank pain Additional Impression: Pyelonephritis Departure Information Dispostion Admitted as an inpatient Condition FAIR Referrals Zulma Tripp D.O. (PCP) Patient Instructions My [facility] Problem Qualifiers
[2016-12-09 09:32] LABS: BASO % 0.2 %; BASO ABS # 0.02 K/uL (0-0.2); COMPLETE YES; HEMATOCRIT 41.3 % (37-47); IG% 0.4 %; LYMPH % 5.2 %; LYMPH ABS # 0.61 K/uL (1.2-3.4); MEAN CELL VOLUME 85.5 fL (80-100); MEAN CORPUSCULAR HGB CONC 35.1 g/dl (32-36); MONO % 7.7 %; NEUT % 86.5 %; PLATELET COUNT 177 K/uL (130-400); RED BLOOD COUNT 4.83 M/uL (4.2-5.4); WHITE BLOOD COUNT 11.64 K/uL (4.8-10.8)
[2016-12-09 09:38] LABS: BUN/CREATININE RATIO 11.5 (10-20); CALCIUM 8.8 mg/dl (8.5-10.1); CREATININE 1.1 mg/dl (0.60-1.20); MAGNESIUM 1.7 mg/dl (1.8-2.4); POTASSIUM 3.7 mmol/L (3.5-5.1)
[2016-12-09 09:47] LABS: BETA-HYDROXYBUTYRATE 11.58 mg/dL (0.2-2.81)
--- NOTE | 2016-12-09 10:13 | DIAGNOSTIC IMAGING REPORT ---
(RENAL)RETROPERITON COMP HISTORY: 51 years-old Female Right flank pain, febrile. Hx renal calculi COMPARISON: Abdominal radiographs 10/22/2016. TECHNIQUE: Multiple real-time sonographic images of the kidneys and urinary bladder were obtained assessing grayscale appearance and color flow. FINDINGS: The exam is somewhat limited secondary to patient body habitus. Right kidney measures 11.5 x 7.7 x 7.7 cm. Linear echogenicity in the region of the interpolar right kidney is seen, 0.4 cm suggesting calculus. There appears be mild dilation of the central renal collecting system on the right. Renal parenchyma is otherwise unremarkable. Left kidney measures 13.5 x 6.7 x 7.8 cm. There is a 0.4 cm non-shadowing calculus of the interpolar left kidney. No hydronephrosis. Parenchyma is within normal limits. Urinary bladder is partially collapsed with left ureteral jet noted. The right ureteral jet is not definitively seen. Diffuse increased echogenicity of the liver is incidentally noted suggesting fatty infiltration. IMPRESSION: 1. 0.4 cm calculus of the interpolar right kidney is noted with associated mild collecting system dilation suggesting hydronephrosis. The right ureteral jet is not identified. These findings could be further evaluated with CT. 2. 0.5 cm calculus of the left kidney noted without obstructive uropathy. 3. Fatty infiltration of the liver incidentally noted. The above report was generated using voice recognition software. It may contain grammatical, syntax or spelling errors. Electronically signed by: Jaya Devine M.D. 12/09/2016 10:12 AM Dictated Date/Time: 12/09/2016 10:01 AM
--- NOTE | 2016-12-09 11:13 | DIAGNOSTIC IMAGING REPORT ---
CT SCAN OF THE ABDOMEN AND PELVIS WITH IV CONTRAST CLINICAL HISTORY: Right flank pain. COMPARISON STUDY: Abdominal CT dated 10/06/2016 TECHNIQUE: Following the IV administration of 93 cc of Optiray 320, CT scan of the abdomen and pelvis is performed from the lung bases to the proximal femora. Images are reviewed in the axial, sagittal, and coronal planes. IV contrast was administered without complication. Automated dose control exposure was utilized. A dose lowering technique was utilized adhering to the principles of ALARA. CT DOSE: 1537.37 mGy.cm FINDINGS: Lung bases: The heart is normal in size and without pericardial effusion. The lung bases are clear. There is a small hiatal hernia. Liver: The contrast-enhanced liver is enlarged, measuring 26.6 cm in length. The liver demonstrates diffusely diminished attenuation consistent with severe hepatic steatosis. There is no intrahepatic biliary ductal dilatation. The hepatic veins and portal veins are patent. Gallbladder: Surgically absent noting clips in the gallbladder fossa. Spleen: Normal in size and attenuation. Pancreas: Moderately atrophic and grossly unremarkable. Adrenal glands: Unremarkable. Kidneys: The contrast enhanced kidneys are normal in size. There is a 17 mm obstructing calculus identified at the right ureteropelvic junction. This causes moderate to severe right-sided hydronephrosis. There is associated right-sided perinephric stranding and trace fluid. There are additional clusters of nonobstructing calculi in the lower pole of the right kidney. A 4 mm nonobstructing calculus is seen in the lower pole of left kidney. There is heterogeneously diminished perfusion of the right kidney as compared to the left. Urothelial thickening is noted in the right renal pelvis. There is a 1.7 cm indeterminant lesion in the upper pole of the right kidney seen on image #212. Abdominal vasculature: The abdominal aorta is normal in course and caliber. Bowel: The small bowel and colon are normal in course and caliber. The appendix is well-visualized and normal. Peritoneum: There is no intraperitoneal free air or abdominal ascites. Lymphadenopathy: None. Pelvic viscera: The bladder, uterus, and adnexa are normal as visualized. Skeletal structures: The skeletal structures appear osteopenic. Mild lumbosacral spondylosis is observed. No lytic or blastic lesions are seen. IMPRESSION: 1. There is a 17 mm obstructing calculus at the right ureteropelvic junction. This causes moderate to severe right-sided hydronephrosis. 2. Additional bilateral nonobstructing renal calculi as above. 3. There is heterogeneously diminished perfusion of the right kidney as compared to left as well as nonspecific urothelial thickening. This is likely related to obstruction and hydronephrosis. Correlate clinically and with urinalysis for evidence of superimposed infection. 4. Hepatomegaly and severe hepatic steatosis. 5. There is an indeterminant 1.7 cm partially exophytic lesion arising from the upper pole of the right kidney. This likely represents a cyst a copy definitively characterized. Follow-up with a nonemergent renal ultrasound is recommended for further assessment. 6. Additional findings as above. Electronically signed by: Myles Fisher M.D. 12/09/2016 11:12 AM Dictated Date/Time: 12/09/2016 11:02 AM
[2016-12-09] MEDS ORDERED: OPTIRAY 320 IV PRN (11:15)
[2016-12-09] MEDS ORDERED: CEFTRIAXONE SOD INJ 1 GM ADDVIAL IV STA (11:17)
[2016-12-09 11:30] LABS: URINE APPEARANCE CLOUDY (CLEAR); URINE BILIRUBIN NEG (NEG); URINE COLOR YELLOW; URINE EPITHELIAL CELL AUTO >30 /lpf (0-5); URINE NITRITE NEG (NEG); URINE SPECIFIC GRAVITY 1.045 (1.000-1.030); UROBILINOGEN NEG (NEG); ZZUR CULT IF INDIC CLEAN CATCH YES
[2016-12-09 11:42] LABS: MANUAL MICROSCOPIC REQUIRED? NO; REVIEW REQ? NO
[2016-12-09 12:20] VITALS: BP 178/106; PULSE 114; TEMP 37.2; BMI 47.4
[2016-12-09] MEDS ORDERED: ONDANSETRON INJ 2 MG/ML 2 ML VIAL IV PRN (12:30)
[2016-12-09] MEDS ORDERED: MoRPHine SULFATE 2 MG/ML CARP IV PRN (12:45)
[2016-12-09] MEDS ORDERED: GLUCAGON FOR INJ 1 MG VIAL SQ PRN (13:00)
[2016-12-09] MEDS ORDERED: DEXTROSE 50% 50 ML SYR IV PRN (13:00)
[2016-12-09] MEDS ORDERED: GLUCOSE 40% GEL 15 GM TUBE PO PRN (13:00)
[2016-12-09] MEDS ORDERED: HydrALAZINE 10 MG TAB PO SCH (13:00)
[2016-12-09] MEDS ORDERED: GLUCOSE 10 TABS/TUBE PO PRN (13:00)
[2016-12-09 13:09] VITALS: O2SAT 96
--- NOTE | 2016-12-09 13:15 | History and Physical ---
History & Physical Date & Time of Service: Dec 09, 2016 at 13:03 Chief Complaint: Kidney Stone Primary Care Physician: Zulma Tripp D.O. History of Present Illness Source: patient Patient is a 51yo F with PMH of uncontrolled DM II, HTN, h/o renal stones who presents with R sided flank pain x 2 days. Last month, patient states that she was at [facility] with kidney stones and had lithotripsy performed. She then returned to her baseline of health until 2 days ago, when she woke up with R sided flank pain and associated nausea. Endorses one episode of emesis. Took percocet at home 3 times on with some pain relief relief. Stayed home from work yesterday and "slept all day". Flank pain had diminished but nausea and vomiting persisted. This morning, patient awoke with fever and chills and presented to the ED. Currently, patient endorses R-sided flank pain, fatigue and chills. Denies subjective fever, headache, vision changes, CP, SOB, nausea/vomiting, abd pain, dysuria, hematuria, lower extremity swelling. States that she has not taken her diabetes medication (metformin, Lantus) or HTN medication (Lisinopril) for the past 2 days because she did not feel well enough. Started to follow with Dr. Henao as an out-patient after initial diagnosis of renal stones in October. Underwent lithotropsy with R stent placed, then removed. Completed trial dose of flomax and macrobid for UTI. In ED, patient was febrile to 38.3, tachycardic to 118. Was started on IVFs, Rocephin and pain medication. Past Medical/Surgical History Medical Problems: (1) Asthma in remission Status: Chronic (2) Diabetes mellitus type II, uncontrolled Status: Chronic (3) H/O renal calculi Status: Chronic (4) Hypertension Status: Chronic Surgical Problems: (1) History of section Status: Chronic (2) History of cholecystectomy Status: Chronic Family History Cancer Diabetes mellitus Gallbladder disease Heart disease Hypertension Kidney disease Kidney stones Social History Smoking Status: Never Smoker Marital Status: Housing status: lives with family Occupational Status: employed Multi-Drug Resistant Organisms History of MDRO: No Allergies Coded Allergies: No Known Allergies (Verified , 12/09/16) Home Medications Scheduled Aspirin (Aspirin 81), 81 MG PO QAM Atorvastatin (Lipitor), 20 MG PO DAILY Insulin Glargine (Lantus Solostar), 36 UNITS SC HS Lisinopril (Lisinopril), 5 MG PO DAILY Metformin HCl (Metformin HCl ER), 1,000 MG PO BID Multivitamin (Multivitamin), 1 TAB PO DAILY Review of Systems Ten systems reviewed and negative except as noted in the HPI. Physical Exam Vital Signs Date Time Temp Pulse Resp B/P (MAP) Pulse Ox O2 Delivery O2 Flow Rate FiO2 12/09/16 12:20 Room Air 12/09/16 11:20 37.7 89 16 193/113 96 Room Air 12/09/16 10:35 38.4 109 20 172/127 92 Room Air 12/09/16 10:35 92 Room Air 12/09/16 10:33 109 12/09/16 08:29 38.3 118 18 180/70 94 Room Air General Appearance: WD/WN (Non-toxic appearing. ), no apparent distress, + obese Head: normocephalic, atraumatic Eyes: normal inspection, sclerae normal ENT: hearing grossly normal Neck: supple, thyroid normal, trachea midline Respiratory/Chest: chest non-tender, lungs clear, normal breath sounds, no respiratory distress, no accessory muscle use Cardiovascular: regular rate, rhythm, no murmur, normal peripheral pulses Abdomen/GI: normal bowel sounds, non tender, soft, no organomegaly Back: normal inspection, + right CVA tenderness Extremities/Musculoskelatal: normal inspection, no calf tenderness, normal capillary refill, + swelling (Bilateral lower extremity swelling (chronic) ) Neurologic/Psych: no motor/sensory deficits, alert, normal mood/affect, oriented x 3 Skin: normal color, warm/dry, no rash Diagnostics Laboratory Results Results Past 24 Hours Test 12/09/16 00:00 12/09/16 08:54 12/09/16 09:04 Range/Units Urine Color YELLOW Urine Appearance CLOUDY CLEAR Urine pH 5.0 4.5-7.5 Urine Specific [place] 1.045 1.000-1.030 Urine Protein 2+ NEG Urine Glucose (UA) 3+ NEG Urine Ketones 3+ NEG Urine Occult Blood 1+ NEG Urine Nitrite NEG NEG Urine Bilirubin NEG NEG Urine Urobilinogen NEG NEG Urine Leukocyte Esterase SMALL NEG Urine WBC (Auto) >30 0-5 /hpf Urine RBC (Auto) 0-4 0-4 /hpf Urine Hyaline Casts (Auto) 5-10 0-5 /lpf Urine Epithelial Cells (Auto) >30 0-5 /lpf Urine Bacteria (Auto) 2+ NEG White Blood Count 11.64 4.8-10.8 K/uL Red Blood Count 4.83 4.2-5.4 M/uL Hemoglobin 14.5 12.0-16.0 g/dL Hematocrit 41.3 37-47 % Mean Corpuscular Volume 85.5 80-100 fL Mean Corpuscular Hemoglobin 30.0 25-34 pg Mean Corpuscular Hemoglobin Concent 35.1 32-36 g/dl Platelet Count 177 130-400 K/uL Mean Platelet Volume 11.0 7.4-10.4 fL Neutrophils (%) (Auto) 86.5 % Lymphocytes (%) (Auto) 5.2 % Monocytes (%) (Auto) 7.7 % Eosinophils (%) (Auto) 0.0 % Basophils (%) (Auto) 0.2 % Neutrophils # (Auto) 10.06 1.4-6.5 K/uL Lymphocytes # (Auto) 0.61 1.2-3.4 K/uL Monocytes # (Auto) 0.90 0.11-0.59 K/uL Eosinophils # (Auto) 0.00 0-0.5 K/uL Basophils # (Auto) 0.02 0-0.2 K/uL RDW Standard Deviation 38.6 36.4-46.3 fL RDW Coefficient of Variation 12.4 11.5-14.5 % Immature Granulocyte % (Auto) 0.4 % Immature Granulocyte # (Auto) 0.05 0.00-0.02 K/uL Sodium Level 133 136-145 mmol/L Potassium Level 3.7 3.5-5.1 mmol/L Chloride Level 98 98-107 mmol/L Carbon Dioxide Level 27 21-32 mmol/L Anion Gap 8.0 3-11 mmol/L Blood Urea Nitrogen 13 7-18 mg/dl Creatinine 1.10 0.60-1.20 mg/dl Est Creatinine Clear Calc Drug Dose 76.4 ml/min Estimated GFR () 67.3 Estimated GFR (Non- 58.1 BUN/Creatinine Ratio 11.5 10-20 Random Glucose 318 70-99 mg/dl Calcium Level 8.8 8.5-10.1 mg/dl Magnesium Level 1.7 1.8-2.4 mg/dl Beta-Hydroxybutyric Acid 11.58 0.2-2.81 mg/dL Bedside Lactic Acid Venous 1.79 0.90-1.70 mmol/L Microbiology Results 12/09/16 Blood Culture, Received Pending 12/09/16 Blood Culture, Received Pending 12/09/16 Urine Culture, Received Pending Diagnostic Radiology Renal U/S: IMPRESSION: 1. 0.4 cm calculus of the interpolar right kidney is noted with associated mild collecting system dilation suggesting hydronephrosis. The right ureteral jet is not identified. These findings could be further evaluated with CT. 2. 0.5 cm calculus of the left kidney noted without obstructive uropathy. 3. Fatty infiltration of the liver incidentally noted. CT Abd/Pelvis with contrast: IMPRESSION: 1. There is a 17 mm obstructing calculus at the right ureteropelvic junction. This causes moderate to severe right-sided hydronephrosis. 2. Additional bilateral nonobstructing renal calculi as above. 3. There is heterogeneously diminished perfusion of the right kidney as compared to left as well as nonspecific urothelial thickening. This is likely related to obstruction and hydronephrosis. Correlate clinically and with urinalysis for evidence of superimposed infection. 4. Hepatomegaly and severe hepatic steatosis. 5. There is an indeterminant 1.7 cm partially exophytic lesion arising from the upper pole of the right kidney. This likely represents a cyst a copy definitively characterized. Follow-up with a nonemergent renal ultrasound is recommended for further assessment. Impression Assessment and Plan Patient is a 51yo F with PMH of uncontrolled DM II, HTN, h/o renal stones who presents with R sided flank pain x 2 days and was found to have R obstructive calculus with hydronephrosis and a UTI. R nephrolithiasis with hydronephrosis: -Presence of a 17 mm obstructing calculus at the right ureteropelvic junction -Moderate to severe right-sided hydronephrosis -Initial diagnosis of renal stones in October 2016; underwent lithotripsy with R stent. -Had stent removed, despite residual fragments and stones, per chart review -Patient not interested in surgery at that point. Treated for UTI -Continues to follow with Dr. Henao in clinic -Continue IVF -Consulted urology -Kept NPO in case of lithotripsy today -Ordered straining of urine -Morphine for pain control UTI: -Presence of a superimposed infection, + UA -Urine and blood cxs pending -Previous urine cultures with aerococcus, enterobacter; sensitive to ceftriaxone -Continue ceftriaxone 1gm Q24H -Does not meet SIRs/Sepsis criteria -Tachy to 118 but fever <38.3, RR of 18, SBp >90, leukocytosis of 11.6, lactate of 1.79 -Monitor CBC Hypertensive urgency: -BP of 193/113 -No evidence of end organ damage -Non-compliant with medication for past 2 days -Continue home dose Lisinopril -Hydralazine 10mg Q6 PRN for SBP >160 -Close monitoring DM II, uncontrolled: -Hgb a1c of 13.3 in 08/04 -Non-compliant with medication for past 2 days -Recheck hgb a1c -In-patient regimen of 15U Lantus BID and SSI -BG checks ACHS -Hold home agents -Diabetic education ordered Tachycardia: resolved -HR of 118 on admission. Now decreased to 72 with adequate pain control -Denies CP, SOB H/o Asthma: -Stable -Satting well on room air -No home meds or inhalers used DVT Ppx: SCDs Code status: FULL PCP: Qasim Dispo: Plan to return home once medically stable ADDENDUM: This is a 51 year old morbidly obese female with a PMH of insulin dependent, uncontrolled DM2, HTN, recent kidney stones in October - had stenting done at that time with lithotripsy - did not want the stents to remain in place at that time ; so this was removed even though there were remaining stones. She presented with fevers/chills, severe R sided flank pain. CT shows a 17mm kidney stone. UA seems dirty. She was given Rocephin, fluids, and Dilaudid in the ER. I saw the patient in room 240 Pain controlled +fevers Plan: IVFs, IV Rocephin, analgesics, flomax, strain urine, though unlikely to pass due to size, urology consulted Hypertensive Urgency - plan is to give one dose of IV hydralazine now; pain control, monitor blood sugars, hold Lisinopril to prevent kidney injury check Ha1c; last A1c was 13%; diabetic education consulted, Lantus 15 units BID and sliding scale started for now, monitor BSGs AC&HS Level of Care Telemetry Advanced Directives Existing Living Will: No Existing Power of Talent Sourcer: No Resuscitation Status FULL RESUSCITATION VTE Prophylaxis VTE Risk Assessment Done? Y/N: Yes Risk Level: Moderate Given or contraindicated: SCD's Social Service Consult None Apply
[2016-12-09] MEDS ORDERED: IV FLUIDS COMPLETED PRN (13:45)
[2016-12-09] MEDS ORDERED: TAMSULOSIN HCL 0.4 MG CAP PO ONE (14:15)
[2016-12-09] MEDS ORDERED: SODIUM CHLORIDE 0.9% 1000ML 1,000 ML IV SCH ×2 (14:15→21:45)
[2016-12-09] MEDS ORDERED: POLYETHYLENE (MIRALAX) 17 GM PACK PO PRN (14:15)
[2016-12-09] MEDS: INSULIN ASPART 100 UNITS/ML 3 ML PEN SC SCH ×3 (14:28→20:05)
[2016-12-09] MEDS ORDERED: NURSING VERBAL MED ORDER ONE ×2 (14:30→15:00)
[2016-12-09] MEDS ORDERED: INSULIN ASPART 100 UNITS/ML 3 ML PEN SC STA (14:31)
[2016-12-09 14:33] VITALS: BP 177/106
[2016-12-09] MEDS ORDERED: MAGNESIUM SULFATE 1GM / D5W 1 GM in PREMIXED IN D5W 100 ML IV ONE (15:15)
[2016-12-09] MEDS ORDERED: HydrALAZINE HCL 20 MG/ML VIAL IV. STA (15:34)
[2016-12-09 15:45] VITALS: BP 143/76; PULSE 98; TEMP 38.4; O2SAT 99
[2016-12-09] MEDS: ACETAMINOPHEN 325 MG TAB PO PRN (15:50)
[2016-12-09 15:52] VITALS: BMI 47.4
[2016-12-09] MEDS ORDERED: HydrALAZINE 10 MG TAB PO PRN (18:00)
[2016-12-09 18:50] VITALS: BP 143/86; PULSE 93; TEMP 37.5; O2SAT 97
[2016-12-09] MEDS: INSULIN GLARGINE SOLOSTAR 100 UNITS/ML 3 ML PEN SC SCH (20:06)
[2016-12-09] MEDS ORDERED: FLUCONAZOLE 100 MG TAB PO STA (21:26)
[2016-12-09] MEDS ORDERED: GENTAMICIN INJ 240 MG in DEXTROSE 5% 100ML 100 ML IV STA (21:30)
[2016-12-09] MEDS ORDERED: AMPICILLIN IV 1 GM in SODIUM CHLOR 0.9% AD-VAN 50ML 50 ML IV STA (21:30)
[2016-12-09] MEDS ORDERED: PIPERACILLIN/TAZOBACTAM 4.5 GM/100ML D5W IV STA (21:46)
--- NOTE | 2016-12-09 21:46 | Urology Consultation ---
History General Date of Service: Dec 09, 2016. Chief Complaint: right renal colic and fever Primary Care Physician: Zulma Tripp D.O. Pt seen a urologist before?: Yes If yes, why?: right renal stones History of Present Illness I am asked by Dr Al to evaluate and treat patient for renal stones and fever. Patient had multiple stones treated in stage fashion September 2016. She was known to have residual fragments remaining but opted to take a break from further surgery and had her stent removed. She was treated for an aerococcus uti at the time of stent removal. She did fine until 2 days ago whcn she developed right flank pain. She was asked to get a KUB as outpatient to see what stones were on the move to plan intervention. She did not get x-ray yesterday or today. She developed fever today and was admitted to ER. She has high fever, leukocytosis with left shift, and lactic acidosis. She is hypertensive due to not taking her bp meds last 2 days. her sugars are also high due to this. Her ct shows a large right UPJ stone and several smaller renal stones. There is a lot of stranding around the right kidney and ureter. I suggest urgent stent tonight. Patient is agreeable. Imaging Imaging: CT Laboratory Labs were reviewed and are within normal limits unless listed below. Labs are available in the chart and at [facility] Problem List Medical Problems: (1) Kidney stone on right side Status: Acute (2) Pyelonephritis Status: Acute (3) Right flank pain Status: Acute Past History diabetes, high cholesterol, hypertension, other (obesity) Past Surgical History: , cholecystectomy Family History Cancer Diabetes mellitus Gallbladder disease Heart disease Hypertension Kidney disease Kidney stones Social History Hx Tobacco Use In Past Year?: No Smoking: non-smoker Alcohol: socially Marital status: Housing status: lives with family Occupation status: employed History of MDRO No Allergies Coded Allergies: No Known Allergies (Verified , 12/09/16) Medications Home Medications: Home Meds and Scripts Medications Dose Route/Sig Max Daily Dose Days Date Category Multivitamin (Multivitamins) Tab 1 Tab PO DAILY 10/22/16 Reported Aspirin 81 (Aspirin) 81 Mg Tab 81 Mg PO QAM 10/17/16 Reported Lisinopril 5 Mg Tab 5 Mg PO DAILY 10/06/16 Reported Lipitor (Atorvastatin Calcium) 20 Mg Tab 20 Mg PO DAILY 10/06/16 Reported Metformin HCl ER (Metformin HCl) 1,000 Mg Tab 1,000 Mg PO BID 10/06/16 Reported Lantus Solostar (Insulin Glargine) 100 Unit/Ml Inj 36 Units SC HS 10/06/16 Reported Inpatient Medications: Current Inpatient Medications Medications (Trade) Dose Ordered Sig/Loren Route Start Time Stop Time Status Last Admin Dose Admin Ioversol (Optiray 320) 125 ml UD PRN IV 12/09/16 11:15 12/13/16 11:14 Acetaminophen (Tylenol Tab) 650 mg Q4H PRN PO 12/09/16 12:30 01/08/17 12:29 12/09/16 15:50 650 MG Polyethylene (Miralax Powder Packet) 17 gm DAILY PRN PO 12/09/16 14:15 01/08/17 14:14 Ondansetron HCl (Zofran Inj) 4 mg Q6H PRN IV 12/09/16 12:30 01/08/17 12:29 12/09/16 20:10 4 MG Ceftriaxone Sodium 1 gm/ Dextrose 50 ml @ 100 mls/hr Q24H IV 12/10/16 09:00 12/19/16 08:59 Sodium Chloride 1,000 ml @ 125 mls/hr Q8H IV 12/09/16 14:15 01/08/17 14:14 12/09/16 14:13 125 MLS/HR Morphine Sulfate (MoRPHine SULFATE INJ) 2 mg Q4 PRN IV 12/09/16 12:45 12/23/16 12:44 12/09/16 20:01 2 MG Aspirin (Ecotrin Tab) 81 mg QAM PO 12/10/16 09:00 01/09/17 08:59 Atorvastatin Calcium (Lipitor Tab) 20 mg DAILY PO 12/10/16 09:00 01/09/17 08:59 Tamsulosin HCl (Flomax Cap) 0.4 mg QAM PO 12/10/16 09:00 01/09/17 08:59 Hydralazine HCl (Apresoline Tab) 10 mg Q6 PRN PO 12/09/16 18:00 01/08/17 12:59 Insulin Glargine (Lantus Solostar Pen) 15 units Q12 SC 12/09/16 21:00 01/08/17 20:59 12/09/16 20:06 15 UNITS Insulin Aspart (novoLOG ASPART) SLIDING SCALE If C... ACHS SC 12/09/16 16:00 01/08/17 15:59 12/09/16 20:05 2 UNITS Glucose (Glucose 40% Gel) 15-30 GRAMS 15 GRAMS... UD PRN PO 12/09/16 13:00 01/08/17 12:59 Glucose (Glucose Chew Tab) 4-8 Tablets 4 Tabl... UD PRN PO 12/09/16 13:00 01/08/17 12:59 Dextrose (Dextrose 50% 50ML Syringe) 25-50ML OF 50% DW IV FOR... UD PRN IV 12/09/16 13:00 01/08/17 12:59 Glucagon (Glucagon Inj) 1 mg UD PRN SQ 12/09/16 13:00 01/08/17 12:59 Miscellaneous (Iv Fluids Completed) 1 ea PRN PRN N/A 12/09/16 13:45 12/09/17 13:44 Fluconazole (Diflucan Tab) 100 mg NOW STAT PO 12/09/16 21:26 12/09/16 21:27 UNV Ampicillin Sodium 1 gm/Sodium Chloride 50 ml @ 100 mls/hr NOW STAT IV 12/09/16 21:30 12/09/16 21:59 UNV Gentamicin Sulfate 240 mg/ Dextrose 106 ml @ 100 mls/hr NOW STAT IV 12/09/16 21:30 12/09/16 22:33 UNV Review of Systems Review of Systems Constitutional: + fever, + chills Eyes: No blurred vision Neurological: + dizzy, No seizures Endocrine: + excessive thirst, + too cold, + tired/sluggish Gastrointestinal: + abdominal pain, + nausea, No vomiting, No constipation, No diarrhea Cardiovascular: No heart murmur, No chest pain, No palpitations, No swelling ankles/feet Respiratory: No shortness of breath Female : + frequent urination, + painful urination, + infections, + kidney stones Physical Exam Vital Signs: Vital Signs Past 12 Hours Date Time Temp Pulse Resp B/P (MAP) Pulse Ox O2 Delivery O2 Flow Rate FiO2 12/09/16 20:00 Room Air 12/09/16 18:50 37.5 93 20 143/86 (105) 97 Room Air 12/09/16 16:00 Room Air 12/09/16 15:45 38.4 98 20 143/76 (98) 99 Room Air 12/09/16 14:33 177/106 (129) 12/09/16 13:09 72 16 180/100 96 Room Air 12/09/16 12:20 37.2 114 22 178/106 Room Air 12/09/16 11:20 37.7 89 16 193/113 96 Room Air 12/09/16 10:35 38.4 109 20 172/127 92 Room Air 12/09/16 10:35 92 Room Air 12/09/16 10:33 109 Physical Exam: General Appearance: WD/WN, + moderate distress, + obese Eyes: bilateral eyes normal inspection ENT: hearing grossly normal Neck: no adenopathy Respiratory/Chest: normal breath sounds, no respiratory distress, no accessory muscle use Cardiovascular: regular rate, rhythm, no edema Extremities: non-tender, normal inspection, no pedal edema, no calf tenderness Skin: normal color, warm/dry, no rash Lymphatic: no adenopathy Assessment & Plan Assessment & Plan Imaging: CT right obstructing upj stone and uti looks toxic needscysto right ureteral stent urgently Patient signed consent will broaden abt coverage. I spoke with Dr Liao and we will decide on pcu vs icu room assignment after stent placement.
[2016-12-09] MEDS ORDERED: PIPERACILL/TAZOBAC IV 4.5 GM in DEXTROSE 5% 100ML IV ONE (22:00)
[2016-12-09] MEDS ORDERED: FENTANYL CITRATE INJ 50 MCG/1 ML 2 ML VIAL ONE (23:25)
[2016-12-09] MEDS ORDERED: MIDAZOLAM HCL 1 MG/ML 2ML VIAL ONE (23:25)
[2016-12-09] MEDS ORDERED: ONDANSETRON INJ 2 MG/ML 2 ML VIAL ONE (23:42)
--- NOTE | 2016-12-09 23:51 | [facility] Operative Report ---
Operative Report Operative Date Dec 09, 2016. 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 Her genitals were prepped and draped in sterile fashion. Time out held with team. I used a half speculum for retraction then I placed a 21 fr rigid cystoscope to bladder. The urethra is unremarkable. The UOs are small slit shape. I placed a Aguayo wire up right ureter with some resistance at the radio-opaque upj stone. I advanced wire into lower pole passed the stone and she drained gross pus from kidney. I sent eric of this for culture. I placed a 24 centimeter 6 Fr double J stent easily. There is brisk very cloudy efflux after placement. I left bladder empty and concluded case. She transferred to recovery under my escort, in stable condition. Plan: continued admission for monitoring sepsis iv abt until cultures returned. 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 Any exceptions are noted below.
[2016-12-10] VITALS (9 sets, daily range): BP systolic 101–144; BP diastolic 60–89; PULSE 82–104; TEMP 36.6–39.3; O2SAT 91–99; Ht 160 cm; Wt 135.5 kg
--- NOTE | 2016-12-10 00:06 | Anesthesiology Progress Note ---
Anesthesia Post Op Note Date & Time Dec 10, 2016 at 00:06 Vital Signs Pain Intensity: 3.0 Vital Signs Past 12 Hours Date Time Temp Pulse Resp B/P (MAP) Pulse Ox O2 Delivery O2 Flow Rate FiO2 12/09/16 20:00 Room Air 12/09/16 18:50 37.5 93 20 143/86 (105) 97 Room Air 12/09/16 16:00 Room Air 12/09/16 15:45 38.4 98 20 143/76 (98) 99 Room Air 12/09/16 14:33 177/106 (129) 12/09/16 13:09 72 16 180/100 96 Room Air 12/09/16 12:20 37.2 114 22 178/106 Room Air Notes Mental Status: alert / awake / arousable, participated in evaluation Pt Amnestic to Procedure: Yes Nausea / Vomiting: adequately controlled Pain: adequately controlled Airway Patency, RR, SpO2: stable & adequate BP & HR: stable & adequate Hydration State: stable & adequate Anesthetic Complications: no major complications apparent
[2016-12-10] MEDS ORDERED: ONDANSETRON INJ 2 MG/ML 2 ML VIAL IV PRN (00:15)
[2016-12-10] MEDS ORDERED: FENTANYL CITRATE INJ 50 MCG/1 ML 2 ML VIAL IV PRN (00:15)
[2016-12-10] MEDS ORDERED: EpHEDrine SULFATE INJ 50 MG/ML AMP IV PRN (00:15)
[2016-12-10] MEDS ORDERED: ATROPINE SULFATE 0.1 MG/ML 5ML SYR IV PRN (00:15)
[2016-12-10] MEDS: SODIUM CHLORIDE 0.9% 1000ML 1,000 ML IV SCH ×3 (01:06→19:39)
[2016-12-10] MEDS: ACETAMINOPHEN 325 MG TAB PO PRN ×3 (01:07→21:19)
[2016-12-10 01:10] LABS: URINE APPEARANCE TURBID (CLEAR); URINE BILIRUBIN NEG (NEG); URINE COLOR YELLOW; URINE EPITHELIAL CELL AUTO 0-5 /lpf (0-5); URINE NITRITE NEG (NEG); URINE SPECIFIC GRAVITY 1.025 (1.000-1.030); UROBILINOGEN NEG (NEG)
[2016-12-10 01:12] LABS: MANUAL MICROSCOPIC REQUIRED? NO; REVIEW REQ? YES
[2016-12-10] MEDS: PIPERACILL/TAZOBAC IV 4.5 GM in DEXTROSE 5% 100ML IV SCH ×3 (03:53→19:38)
[2016-12-10] MEDS ORDERED: RANITIDINE HCL 150 MG TAB PO ONE (04:04)
--- NOTE | 2016-12-10 06:32 | DIAGNOSTIC IMAGING REPORT ---
KUB HISTORY: 51 years-old Female RIGHT CYSTO STENT COMPARISON: CT 12/09/2016 TECHNIQUE: Single spot fluoroscopic image of the right upper abdomen was obtained utilizing 17.7 seconds of fluoroscopy time. FINDINGS/IMPRESSION: There is cannulation of the right renal collecting system with proximal portion of a right ureteral stent imaged, likely within the region of the right renal pelvis. Contrast is seen within the right renal collecting system. The previously described 1.5 cm calculus of the right renal pelvis is not clearly seen. Calculi within the region of the right upper pole are noted. Please see procedure report for further details. The above report was generated using voice recognition software. It may contain grammatical, syntax or spelling errors. Electronically signed by: Jaya Devine M.D. 12/10/2016 6:30 AM Dictated Date/Time: 12/10/2016 6:28 AM
[2016-12-10 06:37] LABS: ESTIMATED AVERAGE GLUCOSE 240 mg/dl; HA1C FLAG Normal (Normal)
[2016-12-10 06:56] LABS: HEMATOCRIT 39.7 % (37-47); MEAN CELL VOLUME 88.6 fL (80-100); MEAN CORPUSCULAR HEMOGLOBIN 28.8 pg (25-34); MEAN CORPUSCULAR HGB CONC 32.5 g/dl (32-36); MEAN PLATELET VOLUME 11.2 fL (7.4-10.4); PLATELET COUNT 145 K/uL (130-400); RED BLOOD COUNT 4.48 M/uL (4.2-5.4); WHITE BLOOD COUNT 10.53 K/uL (4.8-10.8)
[2016-12-10 07:27] LABS: CREATININE 0.94 mg/dl (0.60-1.20)
[2016-12-10] MEDS: INSULIN ASPART 100 UNITS/ML 3 ML PEN SC SCH ×4 (08:15→21:17)
[2016-12-10] MEDS: LISINOPRIL 5 MG TAB PO SCH (08:15)
[2016-12-10] MEDS: INSULIN GLARGINE SOLOSTAR 100 UNITS/ML 3 ML PEN SC SCH ×2 (08:15→21:17)
[2016-12-10] MEDS: ATORVASTATIN 20 MG TAB PO SCH (08:16)
[2016-12-10] MEDS: TAMSULOSIN HCL 0.4 MG CAP PO SCH (08:16)
[2016-12-10] MEDS: ASPIRIN 81 MG ECTAB PO SCH (08:16)
[2016-12-10] MEDS ORDERED: CEFTRIAXONE SOD INJ 1 GM in DEXTROSE 5% ADD-VANTAGE 50ML 50 ML IV SCH (09:00)
[2016-12-10] MEDS ORDERED: PIPERACILL/TAZOBAC CONSULT ACTIVE PRN (09:00)
[2016-12-10] MEDS ORDERED: LISINOPRIL 5 MG TAB PO SCH (09:00)
--- NOTE | 2016-12-10 10:04 | Progress Note ---
Subjective Date of Service: Dec 10, 2016. Subjective Pt evaluation today including: conversation w/ patient, physical exam, lab review, review of studies, review of inpatient medication list Saw/examined the patient in room 240-2 Feels much better after her stent placement last evening Pain has subsided Spiked fevers last evening Problem List Medical Problems: (1) Kidney stone on right side Status: Acute (2) Pyelonephritis Status: Acute (3) Right flank pain Status: Acute Review of Systems Constitutional: + fever, + chills, + weakness Respiratory: No shortness of breath Cardiac: No chest pain Abdomen: No pain (resolved, R flank pain), No nausea (no nausea), No vomiting, No diarrhea Medications Current Inpatient Medications Medications (Trade) Dose Ordered Sig/Loren Route Start Time Stop Time Status Last Admin Dose Admin Ioversol (Optiray 320) 125 ml UD PRN IV 12/09/16 11:15 12/13/16 11:14 Acetaminophen (Tylenol Tab) 650 mg Q4H PRN PO 12/09/16 12:30 01/08/17 12:29 12/10/16 01:07 650 MG Polyethylene (Miralax Powder Packet) 17 gm DAILY PRN PO 12/09/16 14:15 01/08/17 14:14 Ondansetron HCl (Zofran Inj) 4 mg Q6H PRN IV 12/09/16 12:30 01/08/17 12:29 12/09/16 20:10 4 MG Morphine Sulfate (MoRPHine SULFATE INJ) 2 mg Q4 PRN IV 12/09/16 12:45 12/23/16 12:44 12/09/16 20:01 2 MG Aspirin (Ecotrin Tab) 81 mg QAM PO 12/10/16 09:00 01/09/17 08:59 12/10/16 08:16 81 MG Atorvastatin Calcium (Lipitor Tab) 20 mg DAILY PO 12/10/16 09:00 01/09/17 08:59 12/10/16 08:16 20 MG Tamsulosin HCl (Flomax Cap) 0.4 mg QAM PO 12/10/16 09:00 01/09/17 08:59 12/10/16 08:16 0.4 MG Insulin Glargine (Lantus Solostar Pen) 15 units Q12 SC 12/09/16 21:00 01/08/17 20:59 12/10/16 08:15 15 UNITS Insulin Aspart (novoLOG ASPART) SLIDING SCALE If C... ACHS SC 12/09/16 16:00 01/08/17 15:59 12/10/16 08:15 16 UNITS Glucose (Glucose 40% Gel) 15-30 GRAMS 15 GRAMS... UD PRN PO 12/09/16 13:00 01/08/17 12:59 Glucose (Glucose Chew Tab) 4-8 Tablets 4 Tabl... UD PRN PO 12/09/16 13:00 01/08/17 12:59 Dextrose (Dextrose 50% 50ML Syringe) 25-50ML OF 50% DW IV FOR... UD PRN IV 12/09/16 13:00 01/08/17 12:59 Glucagon (Glucagon Inj) 1 mg UD PRN SQ 12/09/16 13:00 01/08/17 12:59 Miscellaneous (Iv Fluids Completed) 1 ea PRN PRN N/A 12/09/16 13:45 12/09/17 13:44 Piperacillin Sod/ Tazobactam Sod (Consult) 1 ea UD PRN N/A 12/10/16 09:00 01/09/17 08:59 Lisinopril (Zestril Tab) 5 mg QAM PO 12/10/16 09:00 01/09/17 08:59 12/10/16 08:15 5 MG Piperacillin Sod/ Tazobactam Sod 4.5 gm/Dextrose 120 ml @ 30 mls/hr Q8H IV 12/10/16 04:00 12/20/16 03:59 12/10/16 03:53 30 MLS/HR Sodium Chloride 1,000 ml @ 100 mls/hr Q10H IV 12/09/16 23:15 01/08/17 14:14 12/10/16 08:16 100 MLS/HR Ranitidine HCl (zANTac TAB) 150 mg HS PO 12/10/16 21:00 01/09/17 20:59 Objective Vital Signs Date Time Temp Pulse Resp B/P (MAP) Pulse Ox O2 Delivery O2 Flow Rate FiO2 12/10/16 08:15 36.6 88 16 104/60 (75) 96 Room Air 12/10/16 08:00 Room Air 12/10/16 04:00 Room Air 12/10/16 03:50 36.7 82 14 114/69 (84) 98 Nasal Cannula 2.0 12/10/16 02:10 37.5 12/10/16 01:30 39.0 104 20 144/72 (96) 99 Nasal Cannula 2.0 12/10/16 01:03 39.3 103 22 143/82 (102) 99 Nasal Cannula 3.0 12/10/16 01:00 Room Air 12/10/16 00:25 38.5 103 24 143/76 (88) 95 Nasal Cannula 3 12/10/16 00:15 106 23 156/88 (114) 100 Mask 4 12/10/16 00:05 108 22 151/88 (109) 100 Mask 4 12/09/16 23:55 109 21 172/82 (101) 100 Mask 4 12/09/16 23:47 37.9 109 23 175/88 (116) 100 Mask 4 12/09/16 20:00 Room Air 12/09/16 18:50 37.5 93 20 143/86 (105) 97 Room Air 12/09/16 16:00 Room Air 12/09/16 15:45 38.4 98 20 143/76 (98) 99 Room Air 12/09/16 14:33 177/106 (129) 12/09/16 13:09 72 16 180/100 96 Room Air 12/09/16 12:20 37.2 114 22 178/106 Room Air 12/09/16 11:20 37.7 89 16 193/113 96 Room Air 12/09/16 10:35 38.4 109 20 172/127 92 Room Air 12/09/16 10:35 92 Room Air 12/09/16 10:33 109 Physical Exam General Appearance: no apparent distress, + obese (morbidly obese) Respiratory/Chest: chest non-tender, lungs clear, normal breath sounds, no respiratory distress, no accessory muscle use Cardiovascular: no edema, no murmur, + tachycardia Extremities: normal inspection, no pedal edema Laboratory Results Last 24 Hours Test 12/09/16 13:40 12/09/16 16:00 12/09/16 16:08 12/09/16 19:45 Bedside Glucose 313 mg/dl 259 mg/dl 195 mg/dl Estimated Average Glucose 240 mg/dl Hemoglobin A1c 10.0 % Test 12/09/16 22:11 12/09/16 23:27 12/10/16 06:22 12/10/16 07:01 Lactic Acid Level 1.6 mmol/L Urine Color YELLOW Urine Appearance TURBID Urine pH 5.0 Urine Specific [place] 1.025 Urine Protein 1+ Urine Glucose (UA) 2+ Urine Ketones 1+ Urine Occult Blood 3+ Urine Nitrite NEG Urine Bilirubin NEG Urine Urobilinogen NEG Urine Leukocyte Esterase LARGE Urine WBC (Auto) >30 /hpf Urine RBC (Auto) >30 /hpf Urine Hyaline Casts (Auto) 1-5 /lpf Urine Epithelial Cells (Auto) 0-5 /lpf Urine Bacteria (Auto) 1+ Urine Yeast (Auto) White Blood Count 10.53 K/uL Red Blood Count 4.48 M/uL Hemoglobin 12.9 g/dL Hematocrit 39.7 % Mean Corpuscular Volume 88.6 fL Mean Corpuscular Hemoglobin 28.8 pg Mean Corpuscular Hemoglobin Concent 32.5 g/dl RDW Standard Deviation 39.8 fL RDW Coefficient of Variation 12.5 % Platelet Count 145 K/uL Mean Platelet Volume 11.2 fL Creatinine 0.94 mg/dl Est Creatinine Clear Calc Drug Dose 95.0 ml/min Estimated GFR () 81.4 Estimated GFR (Non- 70.2 Bedside Glucose 252 mg/dl Assessment and Plan Patient is a 51yo F with PMH of uncontrolled DM II, HTN, h/o renal stones who presents with R sided flank pain x 2 days and was found to have R obstructive calculus with hydronephrosis and a UTI. R nephrolithiasis with hydronephrosis: 12/10 s/p stenting as per urology Pyridium x3 days Flomax and pain medications as needed 12/09 -Presence of a 17 mm obstructing calculus at the right ureteropelvic junction -Moderate to severe right-sided hydronephrosis -Initial diagnosis of renal stones in October 2016; underwent lithotripsy with R stent. -Had stent removed, despite residual fragments and stones, per chart review -Patient not interested in surgery at that point. Treated for UTI -Continues to follow with Dr. Henao in clinic -Continue IVF -Consulted urology -Kept NPO in case of lithotripsy today -Ordered straining of urine -Morphine for pain control Sepsis secondary to UTI/pyelonephrosis 12/10 IV abx. switched to Zosyn cultures pending, continue IV abx. until cultures return 12/09 -Presence of a superimposed infection, + UA -Urine and blood cxs pending -Previous urine cultures with aerococcus, enterobacter; sensitive to ceftriaxone -Continue ceftriaxone 1gm Q24H -Does not meet SIRs/Sepsis criteria -Tachy to 118 but fever <38.3, RR of 18, SBp >90, leukocytosis of 11.6, lactate of 1.79 -Monitor CBC Hypertensive urgency: - resolved 12/10 secondary to pain, which is now resolved, BP are improved 12/09 -BP of 193/113 -No evidence of end organ damage -Non-compliant with medication for past 2 days -Continue home dose Lisinopril -Hydralazine 10mg Q6 PRN for SBP >160 -Close monitoring DM II, uncontrolled: 12/10 Ha1c = 10% diabetic education may need Novolog on discharge 12/09 -Hgb a1c of 13.3 in 08/04 -Non-compliant with medication for past 2 days -Recheck hgb a1c -In-patient regimen of 15U Lantus BID and SSI -BG checks ACHS -Hold home agents -Diabetic education ordered Tachycardia: resolved -HR of 118 on admission. Now decreased to 72 with adequate pain control -Denies CP, SOB H/o Asthma: -Stable -Satting well on room air -No home meds or inhalers used DVT Ppx: subq heparin Code status: FULL PCP: Qasim Dispo: Plan to return home once medically stable
[2016-12-10 11:55] LABS: PROTHROMBIN TIME (PATIENT) 11.1 SECONDS (9.0-12.0)
[2016-12-10] MEDS: HEPARIN SOD 5000 UNIT/0.5 ML CARP SQ SCH ×2 (14:27→21:17)
--- NOTE | 2016-12-10 17:35 | Progress Note ---
Subjective Date of Service: Dec 10, 2016. Subjective Pt evaluation today including: conversation w/ patient, physical exam, lab review Voiding: no voiding problems patient looks and feels worlds better than last night. tolertaing general diet. voiding cloudy urine. some blood. Problem List Medical Problems: (1) Kidney stone on right side Status: Acute (2) Pyelonephritis Status: Acute (3) Right flank pain Status: Acute Review of Systems Constitutional: + fever, + chills, + sweats, + fatigue Respiratory: + cough, No sputum, No shortness of breath, No dyspnea on exertion Cardiac: No chest pain Female : + dysuria, + urinary frequency, + hematuria Endo: + fatigue Objective Vital Signs Date Time Temp Pulse Resp B/P (MAP) Pulse Ox O2 Delivery O2 Flow Rate FiO2 12/10/16 16:00 Room Air 12/10/16 15:46 37.2 85 18 101/65 (77) 95 Room Air 12/10/16 12:19 37.6 100 18 133/83 (100) 94 Room Air 12/10/16 12:00 Room Air 12/10/16 08:15 36.6 88 16 104/60 (75) 96 Room Air 12/10/16 08:00 Room Air 12/10/16 04:00 Room Air 12/10/16 03:50 36.7 82 14 114/69 (84) 98 Nasal Cannula 2.0 12/10/16 02:10 37.5 12/10/16 01:30 39.0 104 20 144/72 (96) 99 Nasal Cannula 2.0 12/10/16 01:03 39.3 103 22 143/82 (102) 99 Nasal Cannula 3.0 12/10/16 01:00 Room Air 12/10/16 00:25 38.5 103 24 143/76 (88) 95 Nasal Cannula 3 12/10/16 00:15 106 23 156/88 (114) 100 Mask 4 12/10/16 00:05 108 22 151/88 (109) 100 Mask 4 12/09/16 23:55 109 21 172/82 (101) 100 Mask 4 12/09/16 23:47 37.9 109 23 175/88 (116) 100 Mask 4 12/09/16 20:00 Room Air 12/09/16 18:50 37.5 93 20 143/86 (105) 97 Room Air Physical Exam General Appearance: WD/WN, no apparent distress, + obese ENT: hearing grossly normal Neurologic/Psychiatric: alert, normal mood/affect, oriented x 3 Laboratory Results Last 24 Hours Test 12/09/16 19:45 12/09/16 22:11 12/09/16 23:27 12/10/16 06:22 Bedside Glucose 195 mg/dl Lactic Acid Level 1.6 mmol/L Urine Color YELLOW Urine Appearance TURBID Urine pH 5.0 Urine Specific [place] 1.025 Urine Protein 1+ Urine Glucose (UA) 2+ Urine Ketones 1+ Urine Occult Blood 3+ Urine Nitrite NEG Urine Bilirubin NEG Urine Urobilinogen NEG Urine Leukocyte Esterase LARGE Urine WBC (Auto) >30 /hpf Urine RBC (Auto) >30 /hpf Urine Hyaline Casts (Auto) 1-5 /lpf Urine Epithelial Cells (Auto) 0-5 /lpf Urine Bacteria (Auto) 1+ Urine Yeast (Auto) White Blood Count 10.53 K/uL Red Blood Count 4.48 M/uL Hemoglobin 12.9 g/dL Hematocrit 39.7 % Mean Corpuscular Volume 88.6 fL Mean Corpuscular Hemoglobin 28.8 pg Mean Corpuscular Hemoglobin Concent 32.5 g/dl RDW Standard Deviation 39.8 fL RDW Coefficient of Variation 12.5 % Platelet Count 145 K/uL Mean Platelet Volume 11.2 fL Creatinine 0.94 mg/dl Est Creatinine Clear Calc Drug Dose 95.0 ml/min Estimated GFR () 81.4 Estimated GFR (Non- 70.2 Test 12/10/16 07:01 12/10/16 11:25 12/10/16 11:32 12/10/16 16:29 Bedside Glucose 252 mg/dl 234 mg/dl 194 mg/dl Prothrombin Time 11.1 SECONDS Prothromb Time International Ratio 1.0 Activated Partial Thromboplast Time 26.4 SECONDS Partial Thromboplastin Ratio 1.0 Assessment and Plan febrile complicated utis with obstructing stone stent drained pyonephrosis last night await cultures voided urine from ER was predictably contaminated. hope the intraop culture grows something as it was taken after iv abt were given. plan for outpatient surgery to work on remaining stones next Thursday12/17/16.
[2016-12-10] MEDS: RANITIDINE HCL 150 MG TAB PO SCH (19:39)
[2016-12-10] MEDS ORDERED: VANCOMYCIN INJ 1,000 MG in SODIUM CHLORIDE 0.9% 250ML 250 ML IV STA (21:55)
--- NOTE | 2016-12-10 22:00 | Progress Note ---
Progress Note Date of Service Dec 10, 2016. Progress Note COMB TENDER ATTENDING NOTE : relieved critical lab result blood culture 12/09/16 2/2 bottles gram positive cocci ordered for MRSA screen added IV Vancomycin , was on Zosyn already Sepsis due to renal stone /UTI ID consult placed
[2016-12-10] MEDS ORDERED: VANCOMYCIN CONSULT ACTIVE PRN (22:15)
[2016-12-10] MEDS ORDERED: VANCOMYCIN INJ 2,800 MG in SODIUM CHLORIDE 0.9% 500ML 500 ML IV ONE (22:30)
--- NOTE | 2016-12-10 23:03 | Pharmacy Progress Note ---
Pharmacy Antibiotic Consult Date of Service: Dec 10, 2016. Pharmacy Dosing Scope Pharmacy is consulted to initiate vancomycin IV dosing therapy, order appropriate labs and adjust drug dose/frequency. Subjective The patient is a 51 year old female admitted on Dec 09, 2016 at 22:38. Objective Height (Feet): 5 Height (Inches): 3.00 Weight (Kilograms): 134.700 Lab Results (24hrs): Test 12/09/16 23:27 12/10/16 06:22 12/10/16 11:25 12/10/16 16:29 Urine Color YELLOW Urine Appearance TURBID (CLEAR) Urine pH 5.0 (4.5-7.5) Urine Specific [place] 1.025 (1.000-1.030) Urine Protein 1+ (NEG) Urine Glucose (UA) 2+ (NEG) Urine Ketones 1+ (NEG) Urine Occult Blood 3+ (NEG) Urine Nitrite NEG (NEG) Urine Bilirubin NEG (NEG) Urine Urobilinogen NEG (NEG) Urine Leukocyte Esterase LARGE (NEG) Urine WBC (Auto) >30 /hpf (0-5) Urine RBC (Auto) >30 /hpf (0-4) Urine Hyaline Casts (Auto) 1-5 /lpf (0-5) Urine Epithelial Cells (Auto) 0-5 /lpf (0-5) Urine Bacteria (Auto) 1+ (NEG) Urine Yeast (Auto) (NONE PRSENT) White Blood Count 10.53 K/uL (4.8-10.8) Red Blood Count 4.48 M/uL (4.2-5.4) Hemoglobin 12.9 g/dL (12.0-16.0) Hematocrit 39.7 % (37-47) Mean Corpuscular Volume 88.6 fL (80-100) Mean Corpuscular Hemoglobin 28.8 pg (25-34) Mean Corpuscular Hemoglobin Concent 32.5 g/dl (32-36) RDW Standard Deviation 39.8 fL (36.4-46.3) RDW Coefficient of Variation 12.5 % (11.5-14.5) Platelet Count 145 K/uL (130-400) Mean Platelet Volume 11.2 fL (7.4-10.4) Creatinine 0.94 mg/dl (0.60-1.20) Est Creatinine Clear Calc Drug Dose 95.0 ml/min Estimated GFR () 81.4 Estimated GFR (Non- 70.2 Prothrombin Time 11.1 SECONDS (9.0-12.0) Prothromb Time International Ratio 1.0 (0.9-1.1) Activated Partial Thromboplast Time 26.4 SECONDS (21.0-31.0) Partial Thromboplastin Ratio 1.0 Bedside Glucose 194 mg/dl (70-90) Test 12/10/16 21:09 Bedside Glucose 164 mg/dl (70-90) Micro Results: Item Value Date Time MRSA DNA Surveillance Screen Received 12/10/16 2200 Nasal Pending Urine Culture Received 12/09/16 2327 Urine,Catheterized Pending Blood Culture - Preliminary Resulted 12/09/16 0858 Blood Gram Positive Cocci Blood Culture - Preliminary Resulted 12/09/16 0854 Blood Gram Positive Cocci Urine Culture - Final Complete 12/09/16 0000 Urine , Clean Catch MORE THAN THREE TYPES OF ORGANISMS FL... Assessment & Plan Patient initially started on zosyn for possible UTI, now vancomycin started due to blood cultures growing Gm+ cocci. Vancomycin: * LD of vancomycin 2800 mg (~20 mg/kg) x 1 given * Will start MD of vancomycin 1750 mg (~13 mg/kg) iv q 16 hrs to achieve an estimated trough ~15-20 mcg/ml (goal for bacteremia) * Estimated kinetics: t1/2~9 hrs, ke~0.08 hr-1, CrCl ~95 ml/min * Will order a trough prior to the 2200 dose on 12/12 to ensure therapeutic; note this will be before steady state, but want to ensure patient is therapeutic. Patient at risk for drug accumulation since elevated BMI>35 kg/m2 ( actual BMI ~52 kg/m2) Zosyn: * 4.5 gm iv q 8 hrs (appropriate for CrCl >20 ml/min); no change, continue same Pharmacy will continue to follow and will adjust dose/frequency as necessary. Thank you
[2016-12-11 04:00] VITALS: BP 140/83; PULSE 78; TEMP 36.9; O2SAT 97
[2016-12-11] MEDS: PIPERACILL/TAZOBAC IV 4.5 GM in DEXTROSE 5% 100ML IV SCH (04:28)
[2016-12-11] MEDS: SODIUM CHLORIDE 0.9% 1000ML 1,000 ML IV SCH ×2 (05:45→14:38)
[2016-12-11] MEDS: HEPARIN SOD 5000 UNIT/0.5 ML CARP SQ SCH ×3 (05:46→20:33)
[2016-12-11 07:17] LABS: CREATININE 0.77 mg/dl (0.60-1.20)
[2016-12-11 07:24] VITALS: BP 135/84; PULSE 80; TEMP 37.2; O2SAT 95
[2016-12-11] MEDS: INSULIN ASPART 100 UNITS/ML 3 ML PEN SC SCH ×4 (07:58→20:33)
[2016-12-11] MEDS: LISINOPRIL 5 MG TAB PO SCH (07:59)
[2016-12-11] MEDS: TAMSULOSIN HCL 0.4 MG CAP PO SCH (08:01)
[2016-12-11] MEDS: ATORVASTATIN 20 MG TAB PO SCH (08:01)
[2016-12-11] MEDS: ASPIRIN 81 MG ECTAB PO SCH (08:01)
[2016-12-11] MEDS: INSULIN GLARGINE SOLOSTAR 100 UNITS/ML 3 ML PEN SC SCH ×2 (08:02→20:33)
[2016-12-11] MEDS ORDERED: VANCOMYCIN INJ 1,000 MG in SODIUM CHLORIDE 0.9% 250ML 250 ML IV SCH (09:00)
--- NOTE | 2016-12-11 10:20 | Medical Consult ---
Consultation Date of Consultation: Dec 11, 2016. Attending Physician: Katty Sanchez DO Reason for Consultation: Gram-positive bacteremia, sepsis History of Present Illness 51-year-old female with prior history of kidney stones and lithotripsy, was well until 2 days prior to admission when she noted onset of severe right flank pain, ultimately 9/10 in intensity, and eventually came to the emergency department for further management. She was found to have obstructive uropathy from the a large stone, and had an emergency stent placement with finding of pyonephrosis.She was started empirically on vancomycin and Zosyn. Blood cultures are now growing Streptococcus. Patient feeling significantly better, fever and chills have resolved, and pain has diminished. Plans for further management of remaining stones planned for next week. Past Medical/Surgical History Medical Problems: (1) Kidney stone on right side Status: Acute (2) Pyelonephritis Status: Acute (3) Right flank pain Status: Acute Medical Problems: (1) Asthma in remission (2) Diabetes mellitus type II, uncontrolled (3) H/O renal calculi (4) Hypertension (5) Sepsis (6) UTI (urinary tract infection) Surgical Problems: (1) History of section (2) History of cholecystectomy Family History Cancer Diabetes mellitus Gallbladder disease Heart disease Hypertension Kidney disease Kidney stones Social History Smoking Status: Never Smoker Marital Status: Housing Status: lives with family Occupation Status: employed Allergies Coded Allergies: No Known Allergies (Verified , 12/09/16) Current Inpatient Medications Current Inpatient Medications Medications (Trade) Dose Ordered Sig/Loren Route Start Time Stop Time Status Last Admin Dose Admin Ioversol (Optiray 320) 125 ml UD PRN IV 12/09/16 11:15 12/13/16 11:14 Acetaminophen (Tylenol Tab) 650 mg Q4H PRN PO 12/09/16 12:30 01/08/17 12:29 12/10/16 21:19 650 MG Polyethylene (Miralax Powder Packet) 17 gm DAILY PRN PO 12/09/16 14:15 01/08/17 14:14 Ondansetron HCl (Zofran Inj) 4 mg Q6H PRN IV 12/09/16 12:30 01/08/17 12:29 12/09/16 20:10 4 MG Morphine Sulfate (MoRPHine SULFATE INJ) 2 mg Q4 PRN IV 12/09/16 12:45 12/23/16 12:44 12/09/16 20:01 2 MG Aspirin (Ecotrin Tab) 81 mg QAM PO 12/10/16 09:00 01/09/17 08:59 12/11/16 08:01 81 MG Atorvastatin Calcium (Lipitor Tab) 20 mg DAILY PO 12/10/16 09:00 01/09/17 08:59 12/11/16 08:01 20 MG Tamsulosin HCl (Flomax Cap) 0.4 mg QAM PO 12/10/16 09:00 01/09/17 08:59 12/11/16 08:01 0.4 MG Insulin Glargine (Lantus Solostar Pen) 15 units Q12 SC 12/09/16 21:00 01/08/17 20:59 12/11/16 08:02 15 UNITS Insulin Aspart (novoLOG ASPART) SLIDING SCALE If C... ACHS SC 12/09/16 16:00 01/08/17 15:59 12/11/16 07:58 9 UNITS Glucose (Glucose 40% Gel) 15-30 GRAMS 15 GRAMS... UD PRN PO 12/09/16 13:00 01/08/17 12:59 Glucose (Glucose Chew Tab) 4-8 Tablets 4 Tabl... UD PRN PO 12/09/16 13:00 01/08/17 12:59 Dextrose (Dextrose 50% 50ML Syringe) 25-50ML OF 50% DW IV FOR... UD PRN IV 12/09/16 13:00 01/08/17 12:59 Glucagon (Glucagon Inj) 1 mg UD PRN SQ 12/09/16 13:00 01/08/17 12:59 Miscellaneous (Iv Fluids Completed) 1 ea PRN PRN N/A 12/09/16 13:45 12/09/17 13:44 Piperacillin Sod/ Tazobactam Sod (Consult) 1 ea UD PRN N/A 12/10/16 09:00 01/09/17 08:59 Lisinopril (Zestril Tab) 5 mg QAM PO 12/10/16 09:00 01/09/17 08:59 12/11/16 07:59 5 MG Piperacillin Sod/ Tazobactam Sod 4.5 gm/Dextrose 120 ml @ 30 mls/hr Q8H IV 12/10/16 04:00 12/20/16 03:59 12/11/16 04:28 30 MLS/HR Sodium Chloride 1,000 ml @ 100 mls/hr Q10H IV 12/09/16 23:15 01/08/17 14:14 12/11/16 05:45 100 MLS/HR Ranitidine HCl (zANTac TAB) 150 mg HS PO 12/10/16 21:00 01/09/17 20:59 12/10/16 19:39 150 MG Heparin Sodium (Porcine) (Heparin Sq 5000 Unit/0.5ml) 5,000 unit Q8 SQ 12/10/16 14:00 01/09/17 13:59 12/11/16 05:46 5,000 UNIT Vancomycin HCl (Consult) 1 ea UD PRN N/A 12/10/16 22:15 01/09/17 22:14 Vancomycin HCl 1750 mg/Sodium Chloride 535 ml @ 200 mls/hr Q16H IV 12/11/16 14:00 12/25/16 13:59 Review of Systems Constitutional: + fever, + chills Eyes: No problem reported Respiratory: No problem reported Cardiovascular: No problem reported Abdomen: + pain, + nausea, + vomiting Musculoskeletal: No problem reported Genitourinary - Female: + problem reported (see HPI) Neurologic: No problem reported Psychiatric: No problem reported Endocrine: No problem reported Hematologic / Lymphatic: No problem reported Integumentary: No problem reported (The) Allergic / Immunologic: No problem reported Physical Exam Date Time Temp Pulse Resp B/P (MAP) Pulse Ox O2 Delivery O2 Flow Rate FiO2 12/11/16 07:24 37.2 80 18 135/84 (101) 95 Room Air 12/11/16 04:00 36.9 78 18 140/83 (102) 97 Room Air 12/11/16 04:00 Room Air 12/11/16 00:00 Room Air 12/10/16 23:17 36.9 87 19 136/81 (99) 91 Room Air 12/10/16 20:00 Room Air 12/10/16 19:39 36.9 96 18 138/89 (105) 94 Room Air 12/10/16 16:00 Room Air 12/10/16 15:46 37.2 85 18 101/65 (77) 95 Room Air 12/10/16 12:19 37.6 100 18 133/83 (100) 94 Room Air 12/10/16 12:00 Room Air General Appearance: WD/WN, no apparent distress, + obese Head: normocephalic, atraumatic Eyes: normal inspection, EOMI, sclerae normal ENT: normal ENT inspection, hearing grossly normal, pharynx normal Neck: supple, no adenopathy, thyroid normal, trachea midline Respiratory/Chest: chest non-tender, lungs clear, normal breath sounds, no respiratory distress Cardiovascular: regular rate, rhythm, no gallop, no murmur Abdomen/GI: normal bowel sounds, non tender, soft, no organomegaly Back: normal inspection, + right CVA tenderness Extremities/Musculoskelatal: normal inspection, no calf tenderness, non-tender Neurologic/Psych: alert, oriented x 3 Skin: normal color, warm/dry, no rash Lymphatic: no adenopathy Laboratory Results RUN DATE: 12/11/16 [facility] LAB PAGE 1 RUN TIME: 0840 Specimen Inquiry PATIENT: GURINDER ASCENCIO LOC: JosueGermain # : [id number] AGE/SX: 51/F ROOM: [facility] REG : 12/09/[address]: Katty Sanchez, : 1965 BED: 2 DIS : STATUS: ADM IN TLOC: SPEC #: [id number] MANDA: 12/09/16 STATUS: RES REQ #: [id number] RECD: 12/09/[address]: Keven Pacheco PA -C SOURCE: BLOOD ENTR: 12/09/[address]: Zulma Tripp D.O. SPDESC: Placido Brush M.D. ORDERED: BLOOD CULTURE Procedure Result Verified Site BLD CULT Preliminary 12/11/16 Organism 1 STREPTOCOCCUS SPECIES SENS SENSITIVITIES DEPENDENT ON FURTHER IDENTIFICATION Date/Time Source Procedure Growth Status 12/10/16 22:00 Nasal MRSA DNA Surveillance Screen - Final Specimen Negative for MRSA by DNA Probe Complete Last 24 Hours Test 12/10/16 11:25 12/10/16 11:32 12/10/16 16:29 12/10/16 21:09 Prothrombin Time 11.1 SECONDS Prothromb Time International Ratio 1.0 Activated Partial Thromboplast Time 26.4 SECONDS Partial Thromboplastin Ratio 1.0 Bedside Glucose 234 mg/dl 194 mg/dl 164 mg/dl Test 12/11/16 06:11 12/11/16 06:14 Bedside Glucose 194 mg/dl Creatinine 0.77 mg/dl Est Creatinine Clear Calc Drug Dose 117.3 ml/min Estimated GFR () 103.6 Estimated GFR (Non- 89.4 CT SCAN OF THE ABDOMEN AND PELVIS WITH IV CONTRAST CLINICAL HISTORY: Right flank pain. COMPARISON STUDY: Abdominal CT dated 10/06/2016 TECHNIQUE: Following the IV administration of 93 cc of Optiray 320, CT scan of the abdomen and pelvis is performed from the lung bases to the proximal femora. Images are reviewed in the axial, sagittal, and coronal planes. IV contrast was administered without complication. Automated dose control exposure was utilized. A dose lowering technique was utilized adhering to the principles of ALARA. CT DOSE: 1537.37 mGy.cm FINDINGS: Lung bases: The heart is normal in size and without pericardial effusion. The lung bases are clear. There is a small hiatal hernia. Liver: The contrast-enhanced liver is enlarged, measuring 26.6 cm in length. The liver demonstrates diffusely diminished attenuation consistent with severe hepatic steatosis. There is no intrahepatic biliary ductal dilatation. The hepatic veins and portal veins are patent. Gallbladder: Surgically absent noting clips in the gallbladder fossa. Spleen: Normal in size and attenuation. Pancreas: Moderately atrophic and grossly unremarkable. Adrenal glands: Unremarkable. Kidneys: The contrast enhanced kidneys are normal in size. There is a 17 mm obstructing calculus identified at the right ureteropelvic junction. This causes moderate to severe right-sided hydronephrosis. There is associated right-sided perinephric stranding and trace fluid. There are additional clusters of nonobstructing calculi in the lower pole of the right kidney. A 4 mm nonobstructing calculus is seen in the lower pole of left kidney. There is heterogeneously diminished perfusion of the right kidney as compared to the left. Urothelial thickening is noted in the right renal pelvis. There is a 1.7 cm indeterminant lesion in the upper pole of the right kidney seen on image #212. Abdominal vasculature: The abdominal aorta is normal in course and caliber. Bowel: The small bowel and colon are normal in course and caliber. The appendix is well-visualized and normal. Peritoneum: There is no intraperitoneal free air or abdominal ascites. Lymphadenopathy: None. Pelvic viscera: The bladder, uterus, and adnexa are normal as visualized. Skeletal structures: The skeletal structures appear osteopenic. Mild lumbosacral spondylosis is observed. No lytic or blastic lesions are seen. IMPRESSION: 1. There is a 17 mm obstructing calculus at the right ureteropelvic junction. This causes moderate to severe right-sided hydronephrosis. 2. Additional bilateral nonobstructing renal calculi as above. 3. There is heterogeneously diminished perfusion of the right kidney as compared to left as well as nonspecific urothelial thickening. This is likely related to obstruction and hydronephrosis. Correlate clinically and with urinalysis for evidence of superimposed infection. 4. Hepatomegaly and severe hepatic steatosis. 5. There is an indeterminant 1.7 cm partially exophytic lesion arising from the upper pole of the right kidney. This likely represents a cyst a copy definitively characterized. Follow-up with a nonemergent renal ultrasound is recommended for further assessment. 6. Additional findings as above. Electronically signed by: Myles Fisher M.D. 12/09/2016 11:12 A Assessment & Plan Streptococcal sepsis from right kidney infection from obstructive uropathy, with clinical response to stent placement and antibiotics. I have change patient to IV ceftriaxone pending final sensitivity results, will likely need at least 7-10 days of IV antibiotics. Would recommend PICC line placement. Will follow.
--- NOTE | 2016-12-11 10:33 | Progress Note ---
Subjective Date of Service: Dec 11, 2016. Subjective Pt evaluation today including: conversation w/ patient, physical exam, lab review, review of studies, review of inpatient medication list Saw/examined the patient in room 240-2 patient is doing well; feeling better, no fevers/chills any longer; pain has subsided Problem List Medical Problems: (1) Kidney stone on right side Status: Acute (2) Pyelonephritis Status: Acute (3) Right flank pain Status: Acute Review of Systems Constitutional: No fever, No chills Respiratory: No cough, No sputum, No shortness of breath Cardiac: No chest pain, No edema, No palpitations Abdomen: No pain (resolved), No nausea, No vomiting, No diarrhea Heme: No abnormal bleeding/bruising Medications Current Inpatient Medications Medications (Trade) Dose Ordered Sig/Loren Route Start Time Stop Time Status Last Admin Dose Admin Ioversol (Optiray 320) 125 ml UD PRN IV 12/09/16 11:15 12/13/16 11:14 Acetaminophen (Tylenol Tab) 650 mg Q4H PRN PO 12/09/16 12:30 01/08/17 12:29 12/10/16 21:19 650 MG Polyethylene (Miralax Powder Packet) 17 gm DAILY PRN PO 12/09/16 14:15 01/08/17 14:14 Ondansetron HCl (Zofran Inj) 4 mg Q6H PRN IV 12/09/16 12:30 01/08/17 12:29 12/09/16 20:10 4 MG Morphine Sulfate (MoRPHine SULFATE INJ) 2 mg Q4 PRN IV 12/09/16 12:45 12/23/16 12:44 12/09/16 20:01 2 MG Aspirin (Ecotrin Tab) 81 mg QAM PO 12/10/16 09:00 01/09/17 08:59 12/11/16 08:01 81 MG Atorvastatin Calcium (Lipitor Tab) 20 mg DAILY PO 12/10/16 09:00 01/09/17 08:59 12/11/16 08:01 20 MG Tamsulosin HCl (Flomax Cap) 0.4 mg QAM PO 12/10/16 09:00 01/09/17 08:59 12/11/16 08:01 0.4 MG Insulin Glargine (Lantus Solostar Pen) 15 units Q12 SC 12/09/16 21:00 01/08/17 20:59 12/11/16 08:02 15 UNITS Insulin Aspart (novoLOG ASPART) SLIDING SCALE If C... ACHS SC 12/09/16 16:00 01/08/17 15:59 12/11/16 07:58 9 UNITS Glucose (Glucose 40% Gel) 15-30 GRAMS 15 GRAMS... UD PRN PO 12/09/16 13:00 01/08/17 12:59 Glucose (Glucose Chew Tab) 4-8 Tablets 4 Tabl... UD PRN PO 12/09/16 13:00 01/08/17 12:59 Dextrose (Dextrose 50% 50ML Syringe) 25-50ML OF 50% DW IV FOR... UD PRN IV 12/09/16 13:00 01/08/17 12:59 Glucagon (Glucagon Inj) 1 mg UD PRN SQ 12/09/16 13:00 01/08/17 12:59 Miscellaneous (Iv Fluids Completed) 1 ea PRN PRN N/A 12/09/16 13:45 12/09/17 13:44 Lisinopril (Zestril Tab) 5 mg QAM PO 12/10/16 09:00 01/09/17 08:59 12/11/16 07:59 5 MG Sodium Chloride 1,000 ml @ 100 mls/hr Q10H IV 12/09/16 23:15 01/08/17 14:14 12/11/16 05:45 100 MLS/HR Ranitidine HCl (zANTac TAB) 150 mg HS PO 12/10/16 21:00 01/09/17 20:59 12/10/16 19:39 150 MG Heparin Sodium (Porcine) (Heparin Sq 5000 Unit/0.5ml) 5,000 unit Q8 SQ 12/10/16 14:00 01/09/17 13:59 12/11/16 05:46 5,000 UNIT Ceftriaxone Sodium 2000 mg/ Dextrose 70 ml @ 100 mls/hr Q24H IV 12/11/16 10:30 12/21/16 10:29 UNV Objective Vital Signs Date Time Temp Pulse Resp B/P (MAP) Pulse Ox O2 Delivery O2 Flow Rate FiO2 12/11/16 08:00 Room Air 12/11/16 07:24 37.2 80 18 135/84 (101) 95 Room Air 12/11/16 04:00 36.9 78 18 140/83 (102) 97 Room Air 12/11/16 04:00 Room Air 12/11/16 00:00 Room Air 12/10/16 23:17 36.9 87 19 136/81 (99) 91 Room Air 12/10/16 20:00 Room Air 12/10/16 19:39 36.9 96 18 138/89 (105) 94 Room Air 12/10/16 16:00 Room Air 12/10/16 15:46 37.2 85 18 101/65 (77) 95 Room Air 12/10/16 12:19 37.6 100 18 133/83 (100) 94 Room Air 12/10/16 12:00 Room Air Physical Exam General Appearance: no apparent distress, + obese Respiratory/Chest: chest non-tender, lungs clear, normal breath sounds, no respiratory distress, no accessory muscle use Cardiovascular: regular rate, rhythm, no edema, no murmur Extremities: normal inspection, no pedal edema Laboratory Results Last 24 Hours Test 12/10/16 11:25 12/10/16 11:32 12/10/16 16:29 12/10/16 21:09 Prothrombin Time 11.1 SECONDS Prothromb Time International Ratio 1.0 Activated Partial Thromboplast Time 26.4 SECONDS Partial Thromboplastin Ratio 1.0 Bedside Glucose 234 mg/dl 194 mg/dl 164 mg/dl Test 12/11/16 06:11 12/11/16 06:14 Bedside Glucose 194 mg/dl Creatinine 0.77 mg/dl Est Creatinine Clear Calc Drug Dose 117.3 ml/min Estimated GFR () 103.6 Estimated GFR (Non- 89.4 Assessment and Plan Patient is a 51yo F with PMH of uncontrolled DM II, HTN, h/o renal stones who presents with R sided flank pain x 2 days and was found to have R obstructive calculus with hydronephrosis and a UTI. Sepsis secondary to Obstructive Nephropathy R nephrolithiasis with hydronephrosis: 12/11 s/p stenting appreciate urology and ID input blood cultures positive x2 for strep; sensitivities pending abx. switched to Rocephin, will need for 7-10 days will need PICC line prior to discharge outpatient urology follow-up on December 17 transfer out of tele to med/surg 12/10 s/p stenting as per urology Pyridium x3 days Flomax and pain medications as needed 12/09 -Presence of a 17 mm obstructing calculus at the right ureteropelvic junction -Moderate to severe right-sided hydronephrosis -Initial diagnosis of renal stones in October 2016; underwent lithotripsy with R stent. -Had stent removed, despite residual fragments and stones, per chart review -Patient not interested in surgery at that point. Treated for UTI -Continues to follow with Dr. Henao in clinic -Continue IVF -Consulted urology -Kept NPO in case of lithotripsy today -Ordered straining of urine -Morphine for pain control Sepsis secondary to UTI/pyelonephrosis 12/10 IV abx. switched to Zosyn cultures pending, continue IV abx. until cultures return 12/09 -Presence of a superimposed infection, + UA -Urine and blood cxs pending -Previous urine cultures with aerococcus, enterobacter; sensitive to ceftriaxone -Continue ceftriaxone 1gm Q24H -Does not meet SIRs/Sepsis criteria -Tachy to 118 but fever <38.3, RR of 18, SBp >90, leukocytosis of 11.6, lactate of 1.79 -Monitor CBC Hypertensive urgency: - resolved 12/10 secondary to pain, which is now resolved, BP are improved 12/09 -BP of 193/113 -No evidence of end organ damage -Non-compliant with medication for past 2 days -Continue home dose Lisinopril -Hydralazine 10mg Q6 PRN for SBP >160 -Close monitoring DM II, uncontrolled: 12/10 Ha1c = 10% diabetic education may need Novolog on discharge 12/09 -Hgb a1c of 13.3 in 08/04 -Non-compliant with medication for past 2 days -Recheck hgb a1c -In-patient regimen of 15U Lantus BID and SSI -BG checks ACHS -Hold home agents -Diabetic education ordered Tachycardia: resolved -HR of 118 on admission. Now decreased to 72 with adequate pain control -Denies CP, SOB H/o Asthma: -Stable -Satting well on room air -No home meds or inhalers used DVT Ppx: subq heparin Code status: FULL PCP: Qasim Dispo: Plan to return home once medically stable
[2016-12-11 11:38] VITALS: BP 155/91; PULSE 87; TEMP 37; O2SAT 95
[2016-12-11] MEDS ORDERED: VANCOMYCIN INJ 1,750 MG in SODIUM CHLORIDE 0.9% 500ML 500 ML IV SCH (14:00)
[2016-12-11] MEDS: CEFTRIAXONE SOD INJ 2,000 MG in DEXTROSE 5% 50ML 50 ML IV SCH (14:38)
[2016-12-11 16:03] VITALS: BP 131/83; PULSE 86; TEMP 36.7; O2SAT 96
[2016-12-11 19:20] VITALS: BP 142/88; PULSE 86; TEMP 36.9; O2SAT 95
[2016-12-11] MEDS: RANITIDINE HCL 150 MG TAB PO SCH (20:30)
[2016-12-11 23:22] VITALS: BP 158/99; PULSE 81; TEMP 37; O2SAT 95
[2016-12-12] MEDS: SODIUM CHLORIDE 0.9% 1000ML 1,000 ML IV SCH (00:34)
[2016-12-12 03:15] VITALS: BP 124/82; PULSE 86; TEMP 36.9; O2SAT 98
[2016-12-12] MEDS: HEPARIN SOD 5000 UNIT/0.5 ML CARP SQ SCH (05:35)
[2016-12-12 07:40] VITALS: BP 145/85; PULSE 79; TEMP 37.1; O2SAT 95
[2016-12-12] MEDS: INSULIN ASPART 100 UNITS/ML 3 ML PEN SC SCH ×2 (07:52→12:01)
[2016-12-12] MEDS: INSULIN GLARGINE SOLOSTAR 100 UNITS/ML 3 ML PEN SC SCH (07:53)
[2016-12-12] MEDS: ASPIRIN 81 MG ECTAB PO SCH (07:56)
[2016-12-12] MEDS: TAMSULOSIN HCL 0.4 MG CAP PO SCH (07:56)
[2016-12-12] MEDS: LISINOPRIL 5 MG TAB PO SCH (07:56)
[2016-12-12] MEDS: ATORVASTATIN 20 MG TAB PO SCH (07:57)
[2016-12-12 10:28] LABS: CREATININE 0.82 mg/dl (0.60-1.20)
--- NOTE | 2016-12-12 11:51 | Progress Note ---
Subjective Date of Service: Dec 12, 2016. Subjective Pt evaluation today including: conversation w/ patient, physical exam, lab review, review of studies, review of inpatient medication list Saw/examined the patient in room 240 She's doing well; No problems/issues to note Denies pain denies fevers/chills Problem List Medical Problems: (1) Kidney stone on right side Status: Acute (2) Pyelonephritis Status: Acute (3) Right flank pain Status: Acute Review of Systems Constitutional: No fever, No chills Respiratory: No shortness of breath Cardiac: No chest pain Abdomen: No pain, No nausea, No vomiting, No diarrhea Medications Current Inpatient Medications Medications (Trade) Dose Ordered Sig/Loren Route Start Time Stop Time Status Last Admin Dose Admin Ioversol (Optiray 320) 125 ml UD PRN IV 12/09/16 11:15 12/13/16 11:14 Acetaminophen (Tylenol Tab) 650 mg Q4H PRN PO 12/09/16 12:30 01/08/17 12:29 12/10/16 21:19 650 MG Polyethylene (Miralax Powder Packet) 17 gm DAILY PRN PO 12/09/16 14:15 01/08/17 14:14 12/11/16 12:23 17 GM Ondansetron HCl (Zofran Inj) 4 mg Q6H PRN IV 12/09/16 12:30 01/08/17 12:29 12/09/16 20:10 4 MG Morphine Sulfate (MoRPHine SULFATE INJ) 2 mg Q4 PRN IV 12/09/16 12:45 12/23/16 12:44 12/09/16 20:01 2 MG Aspirin (Ecotrin Tab) 81 mg QAM PO 12/10/16 09:00 01/09/17 08:59 12/12/16 07:56 81 MG Atorvastatin Calcium (Lipitor Tab) 20 mg DAILY PO 12/10/16 09:00 01/09/17 08:59 12/12/16 07:57 20 MG Tamsulosin HCl (Flomax Cap) 0.4 mg QAM PO 12/10/16 09:00 01/09/17 08:59 12/12/16 07:56 0.4 MG Insulin Glargine (Lantus Solostar Pen) 15 units Q12 SC 12/09/16 21:00 01/08/17 20:59 12/12/16 07:53 15 UNITS Insulin Aspart (novoLOG ASPART) SLIDING SCALE If C... ACHS SC 12/09/16 16:00 01/08/17 15:59 12/12/16 07:52 10 UNITS Glucose (Glucose 40% Gel) 15-30 GRAMS 15 GRAMS... UD PRN PO 12/09/16 13:00 01/08/17 12:59 Glucose (Glucose Chew Tab) 4-8 Tablets 4 Tabl... UD PRN PO 12/09/16 13:00 01/08/17 12:59 Dextrose (Dextrose 50% 50ML Syringe) 25-50ML OF 50% DW IV FOR... UD PRN IV 12/09/16 13:00 01/08/17 12:59 Glucagon (Glucagon Inj) 1 mg UD PRN SQ 12/09/16 13:00 01/08/17 12:59 Miscellaneous (Iv Fluids Completed) 1 ea PRN PRN N/A 12/09/16 13:45 12/09/17 13:44 Lisinopril (Zestril Tab) 5 mg QAM PO 12/10/16 09:00 01/09/17 08:59 12/12/16 07:56 5 MG Sodium Chloride 1,000 ml @ 100 mls/hr Q10H IV 12/09/16 23:15 01/08/17 14:14 12/12/16 00:34 100 MLS/HR Ranitidine HCl (zANTac TAB) 150 mg HS PO 12/10/16 21:00 01/09/17 20:59 12/11/16 20:30 150 MG Heparin Sodium (Porcine) (Heparin Sq 5000 Unit/0.5ml) 5,000 unit Q8 SQ 12/10/16 14:00 01/09/17 13:59 12/12/16 05:35 5,000 UNIT Ceftriaxone Sodium 2000 mg/ Dextrose 70 ml @ 100 mls/hr Q24H IV 12/11/16 12:00 12/21/16 11:59 12/11/16 14:38 100 MLS/HR Heparin Sodium (Porcine) (Heparin 10 Unit/ ml 5 ml Flush) 5 ml PRN PRN FLUSH 12/11/16 15:00 01/10/17 14:59 8/25/17 09:51 5 ML Objective Vital Signs Date Time Temp Pulse Resp B/P (MAP) Pulse Ox O2 Delivery O2 Flow Rate FiO2 12/12/16 08:00 Room Air 12/12/16 07:40 37.1 79 19 145/85 (105) 95 Room Air 12/12/16 04:00 Room Air 12/12/16 03:15 36.9 86 18 124/82 (96) 98 Room Air 12/12/16 00:00 Room Air 12/11/16 23:22 37.0 81 20 158/99 (118) 95 Room Air 12/11/16 20:00 Room Air 12/11/16 19:20 36.9 86 18 142/88 (106) 95 Room Air 12/11/16 16:03 36.7 86 20 131/83 (99) 96 Room Air 12/11/16 16:00 Room Air 12/11/16 12:00 Room Air 12/11/16 11:38 37.0 87 18 155/91 (112) 95 Room Air Physical Exam General Appearance: no apparent distress, + obese Respiratory/Chest: chest non-tender, lungs clear, normal breath sounds, no respiratory distress, no accessory muscle use Cardiovascular: regular rate, rhythm, no edema, no murmur Abdomen: normal bowel sounds, non tender, soft Extremities: normal inspection, no pedal edema Neurologic/Psychiatric: no motor/sensory deficits, alert, normal mood/affect Laboratory Results Last 24 Hours Test 12/11/16 16:18 12/11/16 20:19 12/12/16 07:04 12/12/16 09:47 Bedside Glucose 158 mg/dl 185 mg/dl 150 mg/dl Creatinine 0.82 mg/dl Est Creatinine Clear Calc Drug Dose 109.7 ml/min Estimated GFR () 96.0 Estimated GFR (Non- 82.9 Assessment and Plan Patient is a 51yo F with PMH of uncontrolled DM II, HTN, h/o renal stones who presents with R sided flank pain x 2 days and was found to have R obstructive calculus with hydronephrosis and a UTI. Sepsis secondary to Obstructive Nephropathy R nephrolithiasis with hydronephrosis: 12/12 patient is doing much better Plan to d/c with PICC line today on Rocephin x7 days for sepsis secondary to obstructive nephropathy and pyelonephrosis outpatient follow-up with Dr. Henao on December 17 outpatient follow-up with Dr. Tripp on December 1612/11 s/p stenting appreciate urology and ID input blood cultures positive x2 for strep; sensitivities pending abx. switched to Rocephin, will need for 7-10 days will need PICC line prior to discharge outpatient urology follow-up on December 17 transfer out of tele to med/surg 12/10 s/p stenting as per urology Pyridium x3 days Flomax and pain medications as needed 12/09 -Presence of a 17 mm obstructing calculus at the right ureteropelvic junction -Moderate to severe right-sided hydronephrosis -Initial diagnosis of renal stones in October 2016; underwent lithotripsy with R stent. -Had stent removed, despite residual fragments and stones, per chart review -Patient not interested in surgery at that point. Treated for UTI -Continues to follow with Dr. Henao in clinic -Continue IVF -Consulted urology -Kept NPO in case of lithotripsy today -Ordered straining of urine -Morphine for pain control Sepsis secondary to UTI/pyelonephrosis 12/10 IV abx. switched to Zosyn cultures pending, continue IV abx. until cultures return 12/09 -Presence of a superimposed infection, + UA -Urine and blood cxs pending -Previous urine cultures with aerococcus, enterobacter; sensitive to ceftriaxone -Continue ceftriaxone 1gm Q24H -Does not meet SIRs/Sepsis criteria -Tachy to 118 but fever <38.3, RR of 18, SBp >90, leukocytosis of 11.6, lactate of 1.79 -Monitor CBC Hypertensive urgency: - resolved 12/10 secondary to pain, which is now resolved, BP are improved 12/09 -BP of 193/113 -No evidence of end organ damage -Non-compliant with medication for past 2 days -Continue home dose Lisinopril -Hydralazine 10mg Q6 PRN for SBP >160 -Close monitoring DM II, uncontrolled: 12/12 to be discharged on Lantus 40 units qHS Novolog 10 units with meals to be followed closely by PCP Ha1c, microalbumin in three months 12/10 Ha1c = 10% diabetic education may need Novolog on discharge 12/09 -Hgb a1c of 13.3 in 08/04 -Non-compliant with medication for past 2 days -Recheck hgb a1c -In-patient regimen of 15U Lantus BID and SSI -BG checks ACHS -Hold home agents -Diabetic education ordered Tachycardia: resolved -HR of 118 on admission. Now decreased to 72 with adequate pain control -Denies CP, SOB H/o Asthma: -Stable -Satting well on room air -No home meds or inhalers used DVT Ppx: subq heparin Code status: FULL PCP: Qasim Dispo: Plan to return home once medically stable
[2016-12-12 11:55] VITALS: BP 139/84; PULSE 75; TEMP 36.7; O2SAT 96
[2016-12-12] MEDS ORDERED: NURSING VERBAL MED ORDER ONE (12:00)
[2016-12-12] MEDS: CEFTRIAXONE SOD INJ 2,000 MG in DEXTROSE 5% 50ML 50 ML IV SCH (12:02)
[2016-12-12] MEDS ORDERED: FLM4 PO (12:03)
[2016-12-12] MEDS ORDERED: ULT50X PO (12:03)
[2016-12-12] MEDS ORDERED: INSDGIPEN SC (12:03)
[2016-12-12] MEDS ORDERED: NVLGIPEN SC (12:03)
[2016-12-12] MEDS ORDERED: CEFT1INJ6 IV (12:03)
--- NOTE | 2016-12-12 12:10 | Discharge Instructions ---
Discharge Instructions Date of Service Dec 12, 2016. Admission Reason for Admission: H/O Renal Calculi, Hypertensive Urgency, Uti Discharge Discharge Diagnosis / Problem: Renal Calculi, sepsis secondary to pyelnephrosis Discharge Goals Goal(s): Decrease discomfort, Improve function, Diagnostic testing, Therapeutic intervention Activity Recommendations Activity Limitations: resume your previous activity . Instructions / Follow-Up Instructions / Follow-Up Please follow-up with Dr. Henao on December 17 * You will be discharged with a PICC line and on Rocephin (antibiotic) for 7 days * You will be discharged with Flomax, take this daily; and Tramadol - only take this as need for pain Please follow-up with Dr. Tripp on December 16 at 12:45PM * Your Ha1c was 10%; therefore, diabetes is uncontrolled * Your dose of Lantus will increase to 40 units * You will be started on Novolog 10 units with meals * Please check your blood sugars with meals and take these recorded values with you to your primary care physician * A recheck of Ha1c and a microalbumin should be done in 3 months Current Hospital Diet Patient's current hospital diet: Diabetes Type 1 Diet Discharge Diet Recommended Diet: Diabetes Type 2 Diet Procedures Procedures Performed: Cystoscopy, Right ureteral stent placement Pending Studies Studies pending at discharge: no Laboratory Results Hemoglobin A1c Test 12/09/16 16:08 Range/Units Estimated Average Glucose 240 mg/dl Hemoglobin A1c 10.0 H 4.5-5.6 % Medical Emergencies . Who to Call and When: Medical Emergencies: If at any time you feel your situation is an emergency, please call 911 immediately. . Non-Emergent Contact Non-Emergency issues call your: Primary Care Provider, Urologist . . "Provider Documentation" section prepared by Katty Sanchez. . VTE Core Measure Inpt VTE Proph given/why not?: SCD's [place] Drug Monitoring Program Search Results: patient reviewed within database, no issues identified
--- NOTE | 2016-12-12 12:12 | Discharge Summary ---
Discharge Summary Date of Service Dec 12, 2016. Discharge Summary Admission Date: Dec 09, 2016 at 22:38 Discharge Date: Dec 12, 2016 Discharge Disposition: Home with services Principal Diagnosis: Sepsis secondary to Complicated UTI, Obstructive Uropathy Uncontrolled DM2 Medication Reconciliation New Medications: Ceftriaxone Sodium (Rocephin) 1 Gm Inj 2 GM IV DAILY for 7 Days, VIAL Tramadol HCl (Tramadol HCl) 50 Mg Tab 50 MG PO Q6 for 5 Days, #20 TABS Insulin Aspart (Novolog Flexpen) 100 Units/Ml Inj 10 UNITS SC TIDM for 30 Days, #1 BOX Tamsulosin HCl (Tamsulosin HCl) 0.4 Mg Cap 0.4 MG PO QAM for 30 Days, #30 CAP Changed Medications: Insulin Glargine (Lantus Solostar) 100 Unit/Ml Inj 40 UNITS SC HS for 30 Days, #5 PEN (Changed from: 36 UNITS) Continued Medications: Aspirin (Aspirin 81) 81 Mg Tab 81 MG PO QAM Atorvastatin (Lipitor) 20 Mg Tab 20 MG PO DAILY Lisinopril (Lisinopril) 5 Mg Tab 5 MG PO DAILY Metformin HCl (Metformin HCl ER) 1,000 Mg Tab 1000 MG PO BID Multivitamin (Multivitamin) Tab 1 TAB PO DAILY, TAB Admission Information HPI (per Admitting provider): Patient is a 51yo F with PMH of uncontrolled DM II, HTN, h/o renal stones who presents with R sided flank pain x 2 days. Last month, patient states that she was at [facility] with kidney stones and had lithotripsy performed. She then returned to her baseline of health until 2 days ago, when she woke up with R sided flank pain and associated nausea. Endorses one episode of emesis. Took percocet at home 3 times on with some pain relief relief. Stayed home from work yesterday and "slept all day". Flank pain had diminished but nausea and vomiting persisted. This morning, patient awoke with fever and chills and presented to the ED. Currently, patient endorses R-sided flank pain, fatigue and chills. Denies subjective fever, headache, vision changes, CP, SOB, nausea/vomiting, abd pain, dysuria, hematuria, lower extremity swelling. States that she has not taken her diabetes medication (metformin, Lantus) or HTN medication (Lisinopril) for the past 2 days because she did not feel well enough. Started to follow with Dr. Henao as an out-patient after initial diagnosis of renal stones in October. Underwent lithotropsy with R stent placed, then removed. Completed trial dose of flomax and macrobid for UTI. In ED, patient was febrile to 38.3, tachycardic to 118. Was started on IVFs, Rocephin and pain medication. Physical Exam (per Admitting): General Appearance: WD/WN (Non-toxic appearing. ), no apparent distress, + obese Head: normocephalic, atraumatic Eyes: normal inspection, sclerae normal ENT: hearing grossly normal Neck: supple, thyroid normal, trachea midline Respiratory/Chest: chest non-tender, lungs clear, normal breath sounds, no respiratory distress, no accessory muscle use Cardiovascular: regular rate, rhythm, no murmur, normal peripheral pulses Abdomen/GI: normal bowel sounds, non tender, soft, no organomegaly Back: normal inspection, + right CVA tenderness Extremities/Musculoskelatal: normal inspection, no calf tenderness, normal capillary refill, + swelling (Bilateral lower extremity swelling (chronic) ) Neurologic/Psych: no motor/sensory deficits, alert, normal mood/affect, oriented x 3 Skin: normal color, warm/dry, no rash Hospital Course Patient is a 51yo F with PMH of uncontrolled DM II, HTN, h/o renal stones who presents with R sided flank pain x 2 days and was found to have R obstructive calculus with hydronephrosis and a UTI. Sepsis secondary to Obstructive Nephropathy R nephrolithiasis with hydronephrosis: 12/12 patient is doing much better Plan to d/c with PICC line today on Rocephin x7 days for sepsis secondary to obstructive nephropathy and pyelonephrosis outpatient follow-up with Dr. Henao on December 17 outpatient follow-up with Dr. Tripp on December 1612/11 s/p stenting appreciate urology and ID input blood cultures positive x2 for strep; sensitivities pending abx. switched to Rocephin, will need for 7-10 days will need PICC line prior to discharge outpatient urology follow-up on December 17 transfer out of tele to med/surg 12/10 s/p stenting as per urology Pyridium x3 days Flomax and pain medications as needed 12/09 -Presence of a 17 mm obstructing calculus at the right ureteropelvic junction -Moderate to severe right-sided hydronephrosis -Initial diagnosis of renal stones in October 2016; underwent lithotripsy with R stent. -Had stent removed, despite residual fragments and stones, per chart review -Patient not interested in surgery at that point. Treated for UTI -Continues to follow with Dr. Henao in clinic -Continue IVF -Consulted urology -Kept NPO in case of lithotripsy today -Ordered straining of urine -Morphine for pain control Sepsis secondary to UTI/pyelonephrosis 12/10 IV abx. switched to Zosyn cultures pending, continue IV abx. until cultures return 12/09 -Presence of a superimposed infection, + UA -Urine and blood cxs pending -Previous urine cultures with aerococcus, enterobacter; sensitive to ceftriaxone -Continue ceftriaxone 1gm Q24H -Does not meet SIRs/Sepsis criteria -Tachy to 118 but fever <38.3, RR of 18, SBp >90, leukocytosis of 11.6, lactate of 1.79 -Monitor CBC Hypertensive urgency: - resolved 12/10 secondary to pain, which is now resolved, BP are improved 12/09 -BP of 193/113 -No evidence of end organ damage -Non-compliant with medication for past 2 days -Continue home dose Lisinopril -Hydralazine 10mg Q6 PRN for SBP >160 -Close monitoring DM II, uncontrolled: 12/12 to be discharged on Lantus 40 units qHS Novolog 10 units with meals to be followed closely by PCP Ha1c, microalbumin in three months 12/10 Ha1c = 10% diabetic education may need Novolog on discharge 12/09 -Hgb a1c of 13.3 in 08/04 -Non-compliant with medication for past 2 days -Recheck hgb a1c -In-patient regimen of 15U Lantus BID and SSI -BG checks ACHS -Hold home agents -Diabetic education ordered Tachycardia: resolved -HR of 118 on admission. Now decreased to 72 with adequate pain control -Denies CP, SOB H/o Asthma: -Stable -Satting well on room air -No home meds or inhalers used DVT Ppx: subq heparin Code status: FULL PCP: Qasim Dispo: Plan to return home once medically stable Total time spent on discharge = 50 minutes This includes examination of the patient, discharge planning, medication reconciliation, and communication with other providers. Discharge Instructions Please follow-up with Dr. Henao on December 17 * You will be discharged with a PICC line and on Rocephin (antibiotic) for 7 days * You will be discharged with Flomax, take this daily; and Tramadol - only take this as need for pain Please follow-up with Dr. Tripp on December 16 at 12:45PM * Your Ha1c was 10%; therefore, diabetes is uncontrolled * Your dose of Lantus will increase to 40 units * You will be started on Novolog 10 units with meals * Please check your blood sugars with meals and take these recorded values with you to your primary care physician * A recheck of Ha1c and a microalbumin should be done in 3 months
[2016-12-12 12:57] VITALS: BP 139/84; PULSE 75; TEMP 36.7; O2SAT 96
--- NOTE | 2016-12-12 13:15 | Infectious Disease Progress Nt ---
Progress Note Date of Service Dec 12, 2016. Subjective Pt evaluation today including: conversation w/ patient, physical exam, chart review, lab review, review of studies, conversation w/ [facility] ascp consultant, review of inpatient medication list Patient offers no new complaints today. Pain is controlled. Remains afebrile. Blood cultures growing streptococcal species. All Other Systems: Reviewed and Negative Medications Current Inpatient Medications Medications (Trade) Dose Ordered Sig/Loren Route Start Time Stop Time Status Last Admin Dose Admin Ioversol (Optiray 320) 125 ml UD PRN IV 12/09/16 11:15 12/13/16 11:14 Acetaminophen (Tylenol Tab) 650 mg Q4H PRN PO 12/09/16 12:30 01/08/17 12:29 12/10/16 21:19 650 MG Polyethylene (Miralax Powder Packet) 17 gm DAILY PRN PO 12/09/16 14:15 01/08/17 14:14 12/11/16 12:23 17 GM Ondansetron HCl (Zofran Inj) 4 mg Q6H PRN IV 12/09/16 12:30 01/08/17 12:29 12/09/16 20:10 4 MG Morphine Sulfate (MoRPHine SULFATE INJ) 2 mg Q4 PRN IV 12/09/16 12:45 12/23/16 12:44 12/09/16 20:01 2 MG Aspirin (Ecotrin Tab) 81 mg QAM PO 12/10/16 09:00 01/09/17 08:59 12/12/16 07:56 81 MG Atorvastatin Calcium (Lipitor Tab) 20 mg DAILY PO 12/10/16 09:00 01/09/17 08:59 12/12/16 07:57 20 MG Tamsulosin HCl (Flomax Cap) 0.4 mg QAM PO 12/10/16 09:00 01/09/17 08:59 12/12/16 07:56 0.4 MG Insulin Glargine (Lantus Solostar Pen) 15 units Q12 SC 12/09/16 21:00 01/08/17 20:59 12/12/16 07:53 15 UNITS Insulin Aspart (novoLOG ASPART) SLIDING SCALE If C... ACHS SC 12/09/16 16:00 01/08/17 15:59 8/25/17 12:01 22 UNITS Glucose (Glucose 40% Gel) 15-30 GRAMS 15 GRAMS... UD PRN PO 12/09/16 13:00 01/08/17 12:59 Glucose (Glucose Chew Tab) 4-8 Tablets 4 Tabl... UD PRN PO 12/09/16 13:00 01/08/17 12:59 Dextrose (Dextrose 50% 50ML Syringe) 25-50ML OF 50% DW IV FOR... UD PRN IV 12/09/16 13:00 01/08/17 12:59 Glucagon (Glucagon Inj) 1 mg UD PRN SQ 12/09/16 13:00 01/08/17 12:59 Miscellaneous (Iv Fluids Completed) 1 ea PRN PRN N/A 12/09/16 13:45 12/09/17 13:44 Lisinopril (Zestril Tab) 5 mg QAM PO 12/10/16 09:00 01/09/17 08:59 12/12/16 07:56 5 MG Ranitidine HCl (zANTac TAB) 150 mg HS PO 12/10/16 21:00 01/09/17 20:59 12/11/16 20:30 150 MG Heparin Sodium (Porcine) (Heparin Sq 5000 Unit/0.5ml) 5,000 unit Q8 SQ 12/10/16 14:00 01/09/17 13:59 12/12/16 05:35 5,000 UNIT Ceftriaxone Sodium 2000 mg/ Dextrose 70 ml @ 100 mls/hr Q24H IV 12/11/16 12:00 12/21/16 11:59 12/12/16 12:02 100 MLS/HR Heparin Sodium (Porcine) (Heparin 10 Unit/ ml 5 ml Flush) 5 ml PRN PRN FLUSH 12/11/16 15:00 01/10/17 14:59 12/12/16 09:51 5 ML Objective Vital Signs Date Time Temp Pulse Resp B/P (MAP) Pulse Ox O2 Delivery O2 Flow Rate FiO2 12/12/16 12:57 36.7 75 20 96 Room Air 12/12/16 11:55 36.7 75 20 139/84 (102) 96 Room Air 12/12/16 08:00 Room Air 12/12/16 07:40 37.1 79 19 145/85 (105) 95 Room Air 12/12/16 04:00 Room Air 12/12/16 03:15 36.9 86 18 124/82 (96) 98 Room Air 12/12/16 00:00 Room Air 12/11/16 23:22 37.0 81 20 158/99 (118) 95 Room Air 12/11/16 20:00 Room Air 12/11/16 19:20 36.9 86 18 142/88 (106) 95 Room Air 12/11/16 16:03 36.7 86 20 131/83 (99) 96 Room Air 12/11/16 16:00 Room Air Physical Exam General Appearance: WD/WN, no apparent distress Eyes: normal inspection, EOMI, sclerae normal ENT: normal ENT inspection, pharynx normal Neck: supple, no adenopathy, thyroid normal, trachea midline Respiratory/Chest: chest non-tender, lungs clear, normal breath sounds, no respiratory distress Cardiovascular: regular rate, rhythm, no gallop, no murmur Abdomen: normal bowel sounds, non tender, soft, no organomegaly Extremities: non-tender, no calf tenderness Neurologic/Psychiatric: alert, oriented x 3 Skin: normal color, no rash Lymphatic: no adenopathy Laboratory Results RUN DATE: 12/12/16 [facility] LAB PAGE 1 RUN TIME: 0803 Specimen Inquiry PATIENT: GURINDER ASCENCIO LOC: [facility] U # : [id number] AGE/SX: 51/F ROOM: 40 REG : 12/09/[address]: Katty Sanchez, DO : 1965 BED: 2 DIS : STATUS: ADM IN TLOC: SPEC #: [id number] MANDA: 12/09/16 STATUS: RES REQ #: [id number] RECD: 12/09/[address] [facility] [address]: Keven Pacheco PA -C SOURCE: BLOOD ENTR: 12/09/[address] [facility] [address]: Zulma Tripp D.O. SPDESC: Placido Brush M.D. ORDERED: BLOOD CULTURE Procedure Result Verified Site BLD CULT Preliminary 12/12/16-802 Organism 1 ALPHA STREP NOT S.PNE/ENTEROCO SENS NO SENSITIVITY TO FOLLOW Last 24 Hours Test 12/11/16 16:18 12/11/16 20:19 12/12/16 07:04 12/12/16 09:47 Bedside Glucose 158 mg/dl 185 mg/dl 150 mg/dl Creatinine 0.82 mg/dl Est Creatinine Clear Calc Drug Dose 109.7 ml/min Estimated GFR () 96.0 Estimated GFR (Non- 82.9 Test 12/12/16 11:17 Bedside Glucose 194 mg/dl Assessment and Plan Streptococcal sepsis from right kidney infection from obstructive uropathy, with clinical response to stent placement and antibiotics. Patient to continue IV Abx as outlined, then would transition to oral Rx with amoxicillin for another 2-4 weeks.
[2016-12-12] MEDS ORDERED: VANCOMYCIN TROUGH ONE (21:30)
[2016-12-15] MEDS ORDERED: VNTHFA/IN INH (09:13)
[2016-12-15] MEDS ORDERED: FLM4 PO (09:13)
[2016-12-15] MEDS ORDERED: CEFT1INJ57 IV ×2 (09:16→09:36)
[2016-12-15] MEDS ORDERED: OXYC-57 PO (09:18)
[2016-12-15] MEDS ORDERED: NVLG INJ (09:36)
[2016-12-15] MEDS ORDERED: INSDGIPEN INJ (09:36)
[2016-12-17] MEDS ORDERED: OXYC-57 PO (10:54)
[2016-12-17] MEDS ORDERED: FLM4 PO (10:54)
== END 2016-12-12 14:15 | disposition home health service (06) | DRG 872 ==
LOC: C.EDB 08:16 → EDBEDREQ 12:37 → EDBEDREQSVC 12:49 → ENRESERV 12:50 → CANRESERV 12:50 → INTOOBSV 12:51 → C.2T 12:51 → EDBEDREQTM 12:53 → ENRESERV 12:55 → EDBEDREQ 12:58 → OBSVTOIN 22:38
PROVIDERS: ADMIT Family Medicine; ATTEND Family Medicine
PROC: 0T768DZ Dilation of Right Ureter with Intraluminal Device, Via Natural or Artificial Opening Endoscopic (ICD-10-PCS; principal; 2016-12-09 22:00)
PROC: 02HV33Z Insertion of Infusion Device into Superior Vena Cava, Percutaneous Approach (ICD-10-PCS; 2016-12-11)
DX: A40.9 Streptococcal sepsis, unspecified (principal); N13.2 Hydronephrosis with renal and ureteral calculous obstruction; Z68.43 Body mass index [BMI] 50.0-59.9, adult; N10 Acute pyelonephritis; N39.0 Urinary tract infection, site not specified; J45.909 Unspecified asthma, uncomplicated; E66.9 Obesity, unspecified; I16.0 Hypertensive urgency; R00.0 Tachycardia, unspecified; I10 Essential (primary) hypertension

== ENCOUNTER 2016-12-17 05:44 | Day surgery (SDC) | payer OTHER ==
[2016-12-15 09:19] VITALS: BMI 51.0
[~2016-12-17] VITALS: Ht 162.6 cm; Wt 135.0 kg
[~2016-12-17 05:44] MED LIST changes: +CEFT1INJ57 IV; +FLM4 PO; +INSDGIPEN INJ; -INSDGIPEN SC; +NVLG INJ; +OXYC-57 PO; -TAMS0.4C38 PO; +VNTHFA/IN INH
[2016-12-17 06:28] VITALS: BP 160/90; PULSE 77; TEMP 37.3; O2SAT 96; Ht 162.6 cm; Wt 135.0 kg
[2016-12-17] MEDS ORDERED: oxycodone PO (06:44)
--- NOTE | 2016-12-17 07:57 | History and Physical ---
History & Physical Date Dec 17, 2016. Chief Complaint right kidney stones with sepsis History of Present Illness The patient is a 51 year old female with complaints of right kidney stones and spsesis last week. She was emergently stented. We plan ureteorscopy with laser and basket stone to treat. Past Medical/Surgical History Medical Problems: (1) Asthma in remission (2) Diabetes mellitus type II, uncontrolled (3) H/O renal calculi (4) Hypertension (5) Sepsis (6) UTI (urinary tract infection) Surgical Problems: (1) History of section (2) History of cholecystectomy Additional History Hepatic Disease: No Endocrine Disorder: Yes (DM) Hypertension: No Heart Disease: No Bleeding Tendencies: No Infectious Diseases: Yes (sepsis last week) Other: asthma Allergies Coded Allergies: No Known Allergies (Verified , 12/17/16) Home Medications Scheduled Albuterol Hfa (Ventolin Hfa), 2 PUFFS INH PRN Aspirin (Aspirin 81), 81 MG PO QAM Atorvastatin (Lipitor), 20 MG PO QAM Ceftriaxone Sod (Rocephin), 2 GM IV QPM Insulin Aspart (Novolog), 10 UNITS INJ TIDM Insulin Glargine (Lantus Solostar), 40 UNITS INJ HS Lisinopril (Lisinopril), 5 MG PO QAM Metformin HCl (Metformin HCl ER), 1,000 MG PO BID Multivitamin (Multivitamin), 1 TAB PO QAM Tamsulosin HCl (Tamsulosin HCl), 0.4 MG PO QAM Scheduled PRN Oxycodone/Acetaminophen 5MG/325MG (Percocet 5MG/325MG), 1 TABLET PO Q6H PRN for Pain [oxycodone], 1 TAB PO Q6H PRN for Pain Physical Examination Skin: warm/dry Eyes: normal inspection Respiratory/Chest: lungs clear, normal breath sounds, no respiratory distress Cardiovascular: regular rate, rhythm, no edema Abdomen / GI: normal bowel sounds Back: normal inspection Extremities: normal inspection, normal range of motion Diagnosis right kidney stones with uti and sepsis last week Plan of Treatment cysto right ureteroscopy laser lithotripsy basket stone extraction stent exchange,
[2016-12-17] MEDS ORDERED: DEXAMETHASONE SOD INJ 4 MG/ML VIAL ONE (08:10)
[2016-12-17] MEDS ORDERED: MIDAZOLAM HCL 1 MG/ML 2ML VIAL ONE (08:10)
[2016-12-17] MEDS ORDERED: LIDOCAINE HCL 2% 2 ML VIAL (20MG/ML) ONE (08:10)
[2016-12-17] MEDS ORDERED: PROPOFOL IV EMULSION 10 MG/ML 20 ML VIAL IV ONE (08:10)
[2016-12-17] MEDS ORDERED: FENTANYL CITRATE INJ 50 MCG/1 ML 2 ML VIAL ONE (08:10)
[2016-12-17] MEDS ORDERED: ONDANSETRON INJ 2 MG/ML 2 ML VIAL ONE (08:10)
[2016-12-17] MEDS ORDERED: CEFTRIAXONE SOD INJ 1000 MG in DEXTROSE 5% 50ML IV STA (08:14)
[2016-12-17] MEDS ORDERED: ATROPINE SULFATE 0.1 MG/ML 5ML SYR IV PRN (08:15)
[2016-12-17] MEDS ORDERED: FENTANYL CITRATE INJ 50 MCG/1 ML 2 ML VIAL IV PRN (08:15)
[2016-12-17] MEDS ORDERED: PROMETHAZINE HCL INJ 6.25 MG in SODIUM CHLORIDE 0.9% 50ML 50 ML IV PRN (08:15)
[2016-12-17] MEDS ORDERED: ONDANSETRON INJ 2 MG/ML 2 ML VIAL IV PRN (08:15)
[2016-12-17] MEDS ORDERED: EpHEDrine SULFATE INJ 50 MG/ML AMP IV PRN (08:15)
[2016-12-17] MEDS ORDERED: SUCCINYLCHOLINE CHLORIDE 20 MG/ML 10 ML VIAL IV ONE (08:58)
[2016-12-17] MEDS ORDERED: BELLADONNA/OPIUM SUPP 60 MG SUPP PR ONE ×2 (10:28)
--- NOTE | 2016-12-17 10:51 | [facility] Operative Report ---
Operative Report Operative Date Dec 17, 2016. Pre-Operative Diagnosis Right kidney stones with recent sepsis and urinary tract infection Post-Operative Diagnosis Right kidney stones with recent sepsis and urinary tract infection Procedure(s) Performed Cystoscopy right ureteroscopic laser lithotripsy with basket extraction and stent exchange Surgeon Dr. Henao Cad Manager Surgeon(s) None Estimated Blood Loss 2mL Findings radio-opaque right renal stones Fluids 1300mL Specimens A:Right ureteral stone for analysis Drains 6 Fr 24 centimeter double j stent Anesthesia GET Complication(s) None Disposition Recovery Room / PACU Indications residual stone fragments and one large stone s/p ureteroscopy October 2016. She obstructed from a larger stone and had sepsis last week. She presents for further stone treatment. Description of Procedure Patient was given general GET anesthesia and placed in lithotomy position. Her genitals were prepped and draped in sterile fashion. Time out held with team. I placed a half speculum in vagina to aid retraction. I placed a 21 fr rigid cystoscope to bladder easily. The urethra is unremarkable. The UOs are normal. Her stent is clean. I grasped stent tip and withdrew to meatus. I placed a stiff wire up right ureter thru stent to kidney and removed stent and found it to be intact. I then placed a second wire up right ureter. I placed a 12/14 28 centimeter ureteral access sheath over the second wire to upper ureter. I placed a flex ureteroscope into kidney. I spent 90 minutes lasering the 2 large hard stone fragments and removed several dozen pieces. I used the holmium laser with the 270 micron fiber. There is a central 15mm round radio- opaque stone which I cannot locate. Her horizontal kidney lie makes scope movement in kidney very difficult. I withdrew scope and sheath and ensured there were no ureteral fragments. I placed a 24 centimeter 6 Fr double J stent easily. I left bladder empty and concluded case. I placed a belladonna and opium suppository for post-op pain. She transferred to recovery under my escort, in stable condition. 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 Any exceptions are noted below.
[2016-12-17] MEDS ORDERED: FLM4 PO (10:54)
[2016-12-17] MEDS ORDERED: OXYC-57 PO (10:54)
--- NOTE | 2016-12-17 10:55 | Discharge Instructions ---
Discharge Instructions Date of Service Dec 17, 2016. Admission Reason for Admission: Right Kidney Stone Discharge Discharge Diagnosis / Problem: right kidney stone Discharge Goals Goal(s): Decrease discomfort, Improve disease control Activity Recommendations Activity Limitations: resume your previous activity Lifting Limitations: none Exercise/Sports Limitations: none May Resume Sexual Activity: when tolerated Shower/Bathe: no limitations Driving or Machine Use: resume 1 day after discharge . Instructions / Follow-Up Instructions / Follow-Up we will call about either plan for more surgery or stent removal resume ceftriaxone daily tomorrow Discharge Diet Recommended Diet: Diabetes Type 2 Diet Fluid Restriction: None Procedures Procedures Performed: Cystoscopy right ureteroscopic laser lithotripsy with basket extraction and stent exchange Pending Studies Studies pending at discharge: no Laboratory Results Hemoglobin A1c Test 12/09/16 16:08 Range/Units Estimated Average Glucose 240 mg/dl Hemoglobin A1c 10.0 H 4.5-5.6 % Medical Emergencies . Who to Call and When: Medical Emergencies: If at any time you feel your situation is an emergency, please call 911 immediately. . Non-Emergent Contact Non-Emergency issues call your: Urologist ([phone]) Call Non-Emergent contact if: temperature is above 100.5 . . "Provider Documentation" section prepared by Sharona Henao. . VTE Core Measure Inpt VTE Proph given/why not?: SCD's [place] Drug Monitoring Program Search Results: patient reviewed within database, no issues identified
--- NOTE | 2016-12-17 11:23 | DIAGNOSTIC IMAGING REPORT ---
FLUOROSCOPIC IMAGES FROM RIGHT RETROGRADE EXAM CLINICAL HISTORY: RIGHT LASER/LITHO AND STENT EXCHANGE COMPARISON STUDY: CT of the abdomen and pelvis and KUB/retrograde exam December 09, 2016. Fluoroscopy time: 47 seconds. FINDINGS: 4 fluoroscopic images were obtained. These images demonstrate placement of a right ureteral stent. Right renal/renal pelvis calculi are noted. IMPRESSION: Fluoroscopic images from right retrograde exam with ureteral stent exchange. Electronically signed by: Mart Ortiz M.D. 12/17/2016 11:22 AM Dictated Date/Time: 12/17/2016 11:20 AM
--- NOTE | 2016-12-17 11:29 | Anesthesiology Progress Note ---
Anesthesia Post Op Note Date & Time Dec 17, 2016 at 11:28 Vital Signs Pain Intensity: 0 Vital Signs Past 12 Hours Date Time Temp Pulse Resp B/P (MAP) Pulse Ox O2 Delivery O2 Flow Rate FiO2 12/17/16 11:16 195/110 12/17/16 11:13 87 18 95 12/17/16 11:13 87 18 12/17/16 11:11 191/112 12/17/16 11:08 94 17 96 12/17/16 11:08 94 17 12/17/16 11:07 88 18 187/105 97 12/17/16 11:07 87 18 12/17/16 11:05 12/17/16 11:02 86 19 12/17/16 11:02 85 19 181/121 96 12/17/16 10:57 91 24 12/17/16 10:57 91 24 94 12/17/16 10:56 185/105 12/17/16 10:53 177/108 12/17/16 10:52 90 19 94 12/17/16 10:52 90 19 12/17/16 10:52 36.4 90 16 177/100 94 Mask 10 12/17/16 06:28 37.3 77 18 160/90 (113) 96 Room Air Notes Mental Status: alert / awake / arousable, participated in evaluation Pt Amnestic to Procedure: Yes Nausea / Vomiting: adequately controlled Pain: adequately controlled Airway Patency, RR, SpO2: stable & adequate BP & HR: stable & adequate Hydration State: stable & adequate Anesthetic Complications: no major complications apparent BP high in recovery but she is asymptomatic. Held off on her lisinopril today so she has been told to take the dose when she returns home.
[2016-12-17 11:34] VITALS: TEMP 36.2
[2016-12-17 11:40] VITALS: BP 187/90; PULSE 90; O2SAT 94
[2016-12-17 12:10] VITALS: BP 185/87; PULSE 93; O2SAT 95
== END 2016-12-17 12:42 | disposition home or self-care (01) ==
LOC: C.ACU 05:44
PROVIDERS: ATTEND Urology
DX: N20.0 Calculus of kidney (principal); J45.909 Unspecified asthma, uncomplicated; E11.9 Type 2 diabetes mellitus without complications; I10 Essential (primary) hypertension; Z79.82 Long term (current) use of aspirin; Z79.899 Other long term (current) drug therapy; Z79.4 Long term (current) use of insulin; Z79.84 Long term (current) use of oral hypoglycemic drugs

== ENCOUNTER 2019-10-21 21:41 | Inpatient (IN) ==
--- OUTSIDE RECORDS SUMMARY | 2019-10-21 21:44 | External Medical Summary | Continuity of Care Document ---
:1965 Author Name Lupis Bolaños Address Unavailable Unavailable , Care Team Providers Name Role Phone Betito Smith M.D. Unavailable [email or web address] Tati FRIEDMAN Unavailable Unavailable Unavailable Unavailable Unavailable Assessments Assessed Problems:NephrolithiasisPyelonephritisStreptococcal infection Problems Kidney infection (590.9) (N15.9) Nephrolithiasis (592.0) (N20.0) Pyelonephritis (590.80) (N12) Streptococcal infection (041.00) (A49.1) Allergies and Adverse Reactions No Known Drug Allergies (Allergy) Medications Cephalexin 500 MG Oral Capsule; TAKE 1 CAPSULE 4 TIMES DAILY Miky Smith Start: 18-Dec-2016 Quantity: 56 Refills: 0 Lisinopril 5 MG Oral Tablet Refills: 0 Atorvastatin Calcium 20 MG Oral Tablet Refills: 0 metFORMIN HCl - 1000 MG Oral Tablet Refills: 0 Aspirin 81 MG TABS Refills: 0 Tamsulosin HCl - 0.4 MG Oral Capsule Refills: 0 Percocet 5-325 MG Oral Tablet Refills: 0 Procedures Procedures not documented Immunizations Immunizations not documented Family History Mother Family history of Recurrent kidney stones (592.0) (N20.0) [facility]: Active Father Family history of Recurrent kidney stones (592.0) (N20.0) [facility]: Active Sibling Family history of Recurrent kidney stones (592.0) (N20.0) [facility]: Active Social History - Smoking Status Never smoked tobacco Interventions Discussion/SummaryPatient with streptococcal sepsis with urinary tract infection and pyelonephritis in the setting of nephrolithiasis, with excellent response to antibiotics. She will complete her planned course of cephalexin, and we will await follow-up at [facility] for management of her stone. Patient advised to call immediately if any signs or symptoms of recurrent infection, or any other questions or concerns. Plan of Treatment Planned Observations Planned Goals not documented Results No Known Results Results not documented Encounters Appointment; Julio C Smith M.D. 31-Dec-2016 14:30 Encounter Diagnosis: Problem not documented
--- OUTSIDE RECORDS SUMMARY | 2019-10-21 21:44 | External Medical Summary | Continuity of Care Document ---
:1965 Author Name Lupis Bolaños Address Unavailable Unavailable , Care Team Providers Name Role Phone Betito Smith M.D. Unavailable [email or web address] Tati FRIEDMAN Unavailable Unavailable Unavailable Unavailable Unavailable Assessments Assessed Problems:NephrolithiasisPyelonephritisStreptococcal infection Problems Streptococcal infection (041.00) (A49.1) Pyelonephritis (590.80) (N12) Nephrolithiasis (592.0) (N20.0) Kidney infection (590.9) (N15.9) Allergies and Adverse Reactions No Known Drug [...] cephalexin, and we will await follow-up at [facility] for management of her stone. Patient advised to call immediately if any signs or symptoms of recurrent infection, or any other questions or concerns. Plan of Treatment Planned Observations Planned Goals not documented Results No Known Results Results not documented Encounters Appointment; Julio C Smith M.D. 31-Dec-2016 14:30 Encounter Diagnosis: Problem not documented
[2019-10-21] MEDS ORDERED: MoRPHine SULFATE 4 MG/ML 1 ML CARP\\VIAL IV STA (22:22)
[2019-10-21] MEDS ORDERED: ONDANSETRON INJ 2 MG/ML 2 ML VIAL IV STA (22:22)
[2019-10-21] MEDS ORDERED: SODIUM CHLORIDE 0.9% 500 ML IV STA (22:22)
[2019-10-21] MEDS ORDERED: KETOROLAC TROMETHAMINE 15 MG/ML VIAL IV STA (22:22)
[2019-10-21 22:31] LABS: Hematocrit (blood only) 46.2 % (37-47); Hemoglobin 15.8 g/dL (12.0-16.0); Mean Corpuscular Hemoglobin 29.2 pg (25-34); Mean Corpuscular Hgb Conc 34.2 g/dL (32-36); Mean Corpuscular Volume 85.4 fL (80-100); Mean Platelet Volume 11.6 fL (7.4-10.4); Platelet Count 251 K/uL (130-400); RDW Coefficient of Variation 12.4 % (11.5-14.5); RDW Standard Deviation 38.2 fL (36.4-46.3); Red Blood Count 5.41 M/uL (4.2-5.4); White Blood Count 15.61 K/uL (4.8-10.8)
[2019-10-21 22:46] LABS: Pregnancy Test, Urine Negative (Negative)
[2019-10-21 22:47] LABS: Appearance Urine Clear (Clear); Bacteria Urine Automated Negative (Negative); Bilirubin Urine Negative (Negative); Blood Urine 2+ (Negative); Color Urine Yellow; Epithelial Cell Urine Auto 20-30 /lpf (0-5); Glucose Urine UA 3+ (Negative); Ketones Urine 3+ (Negative); Leukocyte Esterase Urine Negative (Negative); Nitrite Urine Negative (Negative); Protein Urine 1+ (Negative); RBC Urine Automated >30 /hpf (0-4); Specific Gravity Urine 1.023 (1.000-1.030); Urobilinogen Urine Negative (Negative); pH Urine 6.5 (4.5-7.5)
[2019-10-21 22:51] LABS: Albumin Globulin Ratio 0.8 (0.9-2); Albumin Level 3.5 gm/dl (3.4-5.0); BUN Creatinine Ratio 15.7 (10-20); Bilirubin,Total 0.7 mg/dl (0.2-1); Calcium 9.1 mg/dl (8.5-10.1); Creatinine Clr Calc Pharmacy 91.5 ml/min; Est GFR (African American) 77.7; Total Protein 8.1 gm/dl (6.4-8.2)
[2019-10-21] MEDS ORDERED: SODIUM CHLORIDE 0.9% 1000ML 1,000 ML IV ONE (22:55)
--- NOTE | 2019-10-21 22:59 | Emergency Department Note ---
History of Present Illness General Chief complaint: Kidney Stone Stated complaint: ABD PAIN,KIDNEY STONE History of Present Illness Maximum Pain Intensity: 9 This 54-year-old presents to the ER complaining of right flank pain Location: Right flank Quality: Achy Severity: Moderate Duration: Today Timing: Today Context: Pain persisted and patient came in Modifying factors: better with nothing; worse with nothing Patient is a history of kidney stones. Symptoms feel similar. She sees urology from [facility]. She had lithotripsy and stent placement in the past. Patient denies chest pain, dyspnea, fevers, flulike illness. Home Medications Home Medications Medication Instructions Recorded Confirmed Type aspirin [Aspir-81] 81 mg PO QAM 10/21/19 10/21/19 History atorvastatin 20 mg PO DAILY 10/21/19 10/21/19 History ibuprofen [Advil] 400 mg PO Q6H PRN 10/21/19 10/21/19 History insulin glargine [Lantus U-100 50 unit SUBCUT HS 10/21/19 10/21/19 History Insulin] lisinopril 5 mg PO DAILY 10/21/19 10/21/19 History metformin 1,000 mg PO BID 10/21/19 10/21/19 History Allergies Allergy/AdvReac Type Severity Reaction Status Date / Time No Known Allergies Allergy Unknown Verified 10/21/19 22:58 Past Med/Surg History Medical History Diabetes mellitus type II, uncontrolled (Chronic) H/O renal calculi (Chronic) Hypertension (Chronic) Surgical History History of cholecystectomy (Chronic) Social History Preferred Language: [place] Feels Safe at Home: Yes Smoking Status: Never smoker Review of Systems A total of 10 systems reviewed and were otherwise negative Physical Exam Vital Signs Vital Signs - 24 hr 10/21/19 21:57 10/21/19 23:06 10/22/19 00:00 Temperature 37.2 C Temperature Source Oral Pulse Rate 96 H Pulse Rate [Finger] 88 89 Respiratory Rate 20 18 18 Respiratory Effort / Characteristics Normal for Patient Blood Pressure 196/124 H Blood Pressure [Right Arm] 203/101 H 197/108 H Blood Pressure Mean 148 Blood Pressure Mean [Right Arm] 135 137 Blood Pressure Position Sitting Pulse Oximetry 94 94 91 Oxygen Delivery Method Room Air Room Air Room Air Sepsis Recent Fever Within 48 Hours No Sepsis New/Unexplained Change in Mental Status No Sepsis Action Taken by Nursing No Action Required VITALS: Vitals are noted on the nurse's note and reviewed by myself. Vital signs hypertensive GENERAL: Pleasant female who appears in pain, in no acute distress, nondiaphoretic, well-developed well-nourished. SKIN: Capillary reflex less than 2 seconds. HEENT: Normocephalic. PERRLA. EOMI. Nares patent. Mucous membranes moist. Neck is supple without nuchal rigidity. HEART: Regular rate and rhythm LUNGS: Clear to auscultation bilaterally without wheezes, rales or rhonchi. No retractions or accessory muscle use. ABDOMEN: Positive bowel sounds x 4. Normal tympanic percussion. Soft, nontender, without masses or organomegaly. Florian sign negative. No guarding or rebound tenderness. No CVA tenderness MUSCULOSKELETAL: No gross musculoskeletal defects. NEURO: Patient was alert and oriented to person place and time. No focal neurological deficits. Course Administered Medications Discontinued Medications Sodium Chloride (Nss) 500 mls @ 999 mls/hr IV .Q31M STA Stop: 10/21/19 22:52 Last Infusion: 10/21/19 23:03 Dose: 0 mls/hr Documented by: [id number] Admin: 10/21/19 22:29 Dose: 999 mls/hr Documented by: [id number] Sodium Chloride (Nss 1000ml) 1,000 mls @ 999 mls/hr IV .Q1H1M ONE Stop: 10/21/19 23:55 Last Infusion: 10/22/19 00:08 Dose: 0 mls/hr Documented by: [id number] Admin: 10/21/19 23:04 Dose: 999 mls/hr Documented by: [id number] Ketorolac Tromethamine (Toradol) 10 mg IV ONE STA Stop: 10/21/19 22:23 Last Admin: 10/21/19 22:30 Dose: 10 mg Documented by: [id number] Lisinopril (Zestril) 5 mg PO NOW ONE Stop: 10/21/19 23:29 Last Admin: 10/21/19 23:32 Dose: 5 mg Documented by: [id number] Lisinopril (Zestril) 5 mg PO NOW STA Stop: 10/22/19 00:03 Last Admin: 10/22/19 00:15 Dose: 5 mg Documented by: [id number] Morphine Sulfate (Morphine Sulfate) 4 mg IV NOW STA Stop: 10/21/19 22:23 Last Admin: 10/21/19 22:30 Dose: 4 mg Documented by: [id number] Ondansetron HCl (Zofran) 4 mg IV NOW STA Stop: 10/21/19 22:23 Last Admin: 10/21/19 22:29 Dose: 4 mg Documented by: [id number] Tamsulosin HCl (Flomax) 0.4 mg PO NOW ONE Stop: 10/21/19 23:48 Last Admin: 10/21/19 23:53 Dose: 0.4 mg Documented by: [id number] Medical Decision Making Medical Records Attestation: I reviewed the patient's medical records. Home Medications Current Medication List: was personally reviewed by me Laboratory Data Attestation: I reviewed the patient's lab results. Result diagrams: 10/21/19 22:20 10/21/19 22:20 Lab Results 10/21/19 10/21/19 10/21/19 Range/Units 22:10 22:10 22:20 WBC 15.61 H (4.8-10.8) K/uL RBC 5.41 H (4.2-5.4) M/uL Hgb 15.8 (12.0-16.0) g/dL Hct 46.2 (37-47) % MCV 85.4 (80-100) fL MCH 29.2 (25-34) pg MCHC 34.2 (32-36) g/dL RDW Std Deviation 38.2 (36.4-46.3) fL RDW Coeff of Nancy 12.4 (11.5-14.5) % Plt Count 251 (130-400) K/uL MPV 11.6 H (7.4-10.4) fL Sodium (136-145) mmol/L Potassium (3.5-5.1) mmol/L Chloride (98-107) mmol/L Carbon Dioxide (21-32) mmol/L Anion Gap (3-11) BUN (7-18) mg/dl Creatinine (0.6-1.2) mg/dl Est Cr Clr Drug Dosing ml/min Est GFR ( Amer) Est GFR (Non-Af Amer) BUN/Creatinine Ratio (10-20) Glucose (70-99) mg/dl POC Glucose (70-99) mg/dl Calcium (8.5-10.1) mg/dl Magnesium (1.8-2.4) mg/dl Total Bilirubin (0.2-1) mg/dl AST (15-37) U/L ALT (12-78) U/L Alkaline Phosphatase (45-117) U/L Total Protein (6.4-8.2) gm/dl Albumin (3.4-5.0) gm/dl Globulin (2.5-4.0) gm/dl Albumin/Globulin Ratio (0.9-2) Beta-Hydroxybutyric Acd (0.2-2.81) mg/dl Urine Color Yellow Urine Appearance Clear (Clear) Urine pH 6.5 (4.5-7.5) Ur Specific [place] 1.023 (1.000-1.030) Urine Protein 1+ H (Negative) Urine Glucose (UA) 3+ H (Negative) Urine Ketones 3+ H (Negative) Urine Blood 2+ H (Negative) Urine Nitrite Negative (Negative) Urine Bilirubin Negative (Negative) Urine Urobilinogen Negative (Negative) Ur Leukocyte Esterase Negative (Negative) Urine WBC (Auto) 1-5 (0-5) /hpf Urine RBC (Auto) >30 H (0-4) /hpf U Hyaline Cast (Auto) 1-5 (0-5) /lpf U Epithel Cells (Auto) 20-30 H (0-5) /lpf Urine Bacteria (Auto) Negative (Negative) Urine Test Negative (Negative) 10/21/19 10/21/19 10/21/19 Range/Units 22:20 23:48 23:50 WBC (4.8-10.8) K/uL RBC (4.2-5.4) M/uL Hgb (12.0-16.0) g/dL Hct (37-47) % MCV (80-100) fL MCH (25-34) pg MCHC (32-36) g/dL RDW Std Deviation (36.4-46.3) fL RDW Coeff of Nancy (11.5-14.5) % Plt Count (130-400) K/uL MPV (7.4-10.4) fL Sodium 135 L (136-145) mmol/L Potassium 4.0 (3.5-5.1) mmol/L Chloride 100 (98-107) mmol/L Carbon Dioxide 24 (21-32) mmol/L Anion Gap 11.0 (3-11) BUN 15 (7-18) mg/dl Creatinine 0.96 (0.6-1.2) mg/dl Est Cr Clr Drug Dosing 91.5 ml/min Est GFR ( Amer) 77.7 Est GFR (Non-Af Amer) 67.0 BUN/Creatinine Ratio 15.7 (10-20) Glucose 313 H* (70-99) mg/dl POC Glucose 314 H* 287 H (70-99) mg/dl Calcium 9.1 (8.5-10.1) mg/dl Magnesium 1.7 L (1.8-2.4) mg/dl Total Bilirubin 0.7 (0.2-1) mg/dl AST 16 (15-37) U/L ALT 34 (12-78) U/L Alkaline Phosphatase 118 H (45-117) U/L Total Protein 8.1 (6.4-8.2) gm/dl Albumin 3.5 (3.4-5.0) gm/dl Globulin 4.6 H (2.5-4.0) gm/dl Albumin/Globulin Ratio 0.8 L (0.9-2) Beta-Hydroxybutyric Acd 19.51 H (0.2-2.81) mg/dl Urine Color Urine Appearance (Clear) Urine pH (4.5-7.5) Ur Specific [place] (1.000-1.030) Urine Protein (Negative) Urine Glucose (UA) (Negative) Urine Ketones (Negative) Urine Blood (Negative) Urine Nitrite (Negative) Urine Bilirubin (Negative) Urine Urobilinogen (Negative) Ur Leukocyte Esterase (Negative) Urine WBC (Auto) (0-5) /hpf Urine RBC (Auto) (0-4) /hpf U Hyaline Cast (Auto) (0-5) /lpf U Epithel Cells (Auto) (0-5) /lpf Urine Bacteria (Auto) (Negative) Urine Test (Negative) Imaging Data Attestation: I personally reviewed and interpreted this imaging study as follows: Blood Pressure Blood Pressure Findings: Elevated blood pressure Blood Pressure Disposition: Referred to patients primary care provider [facility] Narrative Prior records/ancillary studies reviewed. Triage Nursing notes reviewed. Additional history obtained from the family. The patient's history was concerning for right flank pain. Differential diagnosis: Etiologies such as renal colic, appendicitis, diverticulitis, mesenteric ischemia, aortic pathology, infections, inflammatory bowel disease, PUD, biliary pathology, UTI, as well as others were entertained. Physical examination findings: As above. ER treatment provided: Toradol, morphine, Zofran, IV fluids On reassessment the patient felt better. Diagnostic interpretation by me: The labs revealed hyperglycemia without DKA. Urinalysis revealed There was no sign of UTI. Imaging studies: CT ABDOMEN & PELVIS Without Contrast: 9 x 15 mm stone at the right UPJ with moderate-severe obstructive changes. Bilateral nephrolithiasis. Cholecystectomy. Fatty liver. Radiologist: Mickie Cooper M.D. Consultation: A consultation was placed with Dr Aguirre, hospitalist. The case was discussed and diagnostics were reviewed. The patient was evaluated in the ER for further treatment. It appears that the patient has renal colic from a right sided stone with elevated blood pressure and hyperglycemia that DKA. Patient had a large stone. Pain still persisted. Medicine was consulted for possible admission. By the evaluation outlined above emergent etiologies such as appendicitis, diverticulitis, mesenteric ischemia, aortic pathology, infections, inflammatory bowel disease, PUD, biliary pathology, UTI, as well as others were deemed relatively unlikely. The pt informed about the findings as listed above. All questions were answered and pleased with the treatment. The chart was completed utilizing [employer] Speech voice recognition software. Grammatical errors, random word insertions, pronoun errors, and incomplete sentences are an occassional consequence of this system due to software limitations, ambient noise, and hardware issues. Any formal questions or concerns about the content, text, or information contained within the body of this dictation should be directly addressed to the physician licensed sales assistant for clarification. Impression & Plan Renal colic on right side, Hypertension, Hyperglycemia due to diabetes mellitus, Ureterolithiasis Discharge Plan Visit Data Chief Complaint: Kidney Stone Stated Complaint: ABD PAIN,KIDNEY STONE ED Provider: Balta Baer ED Midlevel Provider: Christ,Piper A Discharge Problem: Renal colic on right side, Hypertension, Hyperglycemia due to diabetes mellitu s, Ureterolithiasis Patient Disposition: Being Evaluated by Hospitalist Condition: Good Forms Stand Alone Forms: My [facility] Prescriptions Prescriptions: No Action atorvastatin 20 mg Tablet 20 mg PO DAILY RF: 0 Lantus U-100 Insulin 100 unit/mL Solution 50 unit SUBCUT HS RF: 0 aspirin [Aspir-81] 81 mg Tablet,Delayed Release (Dr/Ec) 81 mg PO QAM RF: 0 metformin 1,000 mg Tablet 1,000 mg PO BID RF: 0 ibuprofen [Advil] 200 mg Tablet 400 mg PO Q6H PRN (Reason: Pain) RF: 0 lisinopril 5 mg Tablet 5 mg PO DAILY RF: 0 Referrals Referrals: Zulma Tripp DO [Primary Care Provider] -
[2019-10-21 23:03] LABS: Beta-Hydroxybutyrate 19.51 mg/dl (0.2-2.81)
[2019-10-21] MEDS ORDERED: lisinopriL 5 MG TAB PO ONE (23:28)
[2019-10-21 23:42] LABS: Globulin 4.6 gm/dl (2.5-4.0)
[2019-10-21] MEDS ORDERED: TAMSULOSIN HCL 0.4 MG CAP PO ONE (23:47)
[2019-10-21] MEDS ORDERED: MoRPHine SULFATE 4 MG/ML 1 ML CARP\\VIAL IV PRN (23:56)
[2019-10-21] MEDS ORDERED: OXYCODONE HCL IR 5 MG TAB (IMMEDIATE RELEASE) PO PRN (23:56)
[2019-10-21] MEDS ORDERED: PROMETHAZINE HCL 12.5 MG in SODIUM CHLORIDE 0.9% 50 ML IV PRN (23:56)
[2019-10-22] MEDS ORDERED: lisinopriL 5 MG TAB PO STA (00:02)
--- NOTE | 2019-10-22 00:26 | History & Physical Report ---
Date of Service October 22, 2019 Assessment & Plan (1) Hypertensive urgency: Secondary to right renal colic History recurrent urolithiasis/obstructive uropathy No sepsis for now DM 2 insulin requiring, elevated BSGs even at home, 300-400s of late as per patient Suboptimal control as of recent outpatient hemoglobin A1c of 9.25 April 2019 bronchial asthma, stable Medical telemetry given uncontrolled blood pressure Analgesia Titrate home lisinopril Continue Flomax initiated at the ER Neurology consult RE recurrent obstructive uropathy N.p.o. until patient seen by urology in a.m. Basal insulin adjusted for n.p.o. status, ISS BG goal [id number], update hemoglobin A1c DVT prophylaxis per Lovenox subcu Full code Text document was generated using Med ePad voice recognition software. It may contain grammatical or spelling errors. Kindly contact undersigned for clarification of any documentation item in question. History of Present Illness Chief Complaint: Right flank pain Primary Care Provider: Zulma Tripp DO History obtained from patient and records. Medical history significant for hypertension, DM 2 insulin requiring, hyperlipidemia, recurrent urolithiasis, bronchial asthma as per records. Last confinement November 2016 for sepsis secondary to complicated UTI, obstructive uropathy status post stent placement. Yesterday morning patient noted achy right flank discomfort similar to kidney stone pain progressing throughout the day later followed by nausea and emesis symptoms. No hematuria, no fever, no chills. No chest pain, no S OB. No headache. Flomax given at the ER for obstructing kidney stone. 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 Allergies Allergy/AdvReac Type Severity Reaction Status Date / Time No Known Allergies Allergy Unknown Verified 10/21/19 22:58 Home Medications Home Medications Medication Instructions Recorded Confirmed Type aspirin [Aspir-81] 81 mg PO QAM 10/21/19 10/21/19 History atorvastatin 20 mg PO DAILY 10/21/19 10/21/19 History ibuprofen [Advil] 400 mg PO Q6H PRN 10/21/19 10/21/19 History insulin glargine [Lantus U-100 50 unit SUBCUT HS 10/21/19 10/21/19 History Insulin] lisinopril 5 mg PO DAILY 10/21/19 10/21/19 History metformin 1,000 mg PO BID 10/21/19 10/21/19 History Past Med/Surg History Medical History Diabetes mellitus type II, uncontrolled (Chronic) H/O renal calculi (Chronic) Hypertension (Chronic) Surgical History History of cholecystectomy (Chronic) Social History Preferred Language: [place] 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 Beliefs That Will Affect Care: None Current Living Situation: Family Feels Safe at Home: Yes Smoking Status: Never smoker Hx Alcohol Use: No Hx Substance Use: No Review of Systems Review of Systems: As per HPI, all 10 systems reviewed, all other ROS negative Physical Exam Physical Exam: GENERAL: Uncomfortable, obese, pleasant, no respiratory distress SKIN: Normal color, warm HEENT: [place] palpebral conjunctivae, no ptosis, dry buccal mucosa NECK : Supple, short neck, no tenderness CHEST : CTA, no tenderness HEART : RRR, no obvious murmurs ABDOMEN: Some distention, nontender EXTREMITIES : Minimal LE swelling, no LE tenderness, no other conspicuous deformities noted NEUROLOGIC : Coherent, no facial asymmetry, no other gross focality Results & Data Results & Data ([facility]) Vital Signs (Past 12 Hours) Vital Signs Temp Pulse Pulse Resp BP BP Pulse Ox 10/22/19 00:00 89 18 197/108 H 91 10/21/19 23:06 88 18 203/101 H 94 10/21/19 21:57 37.2 C 96 H 20 196/124 H 94 Laboratory Results Laboratory Results WBC 15.61 K/uL (4.8-10.8) H 10/21/19 22:20 RBC 5.41 M/uL (4.2-5.4) H 10/21/19 22:20 Hgb 15.8 g/dL (12.0-16.0) 10/21/19 22:20 Hct 46.2 % (37-47) 10/21/19 22:20 MCV 85.4 fL (80-100) 10/21/19 22:20 MCH 29.2 pg (25-34) 10/21/19 22:20 MCHC 34.2 g/dL (32-36) 10/21/19 22:20 RDW Std Deviation 38.2 fL (36.4-46.3) 10/21/19 22:20 RDW Coeff of Nancy 12.4 % (11.5-14.5) 10/21/19 22:20 Plt Count 251 K/uL (130-400) 10/21/19 22:20 MPV 11.6 fL (7.4-10.4) H 10/21/19 22:20 Sodium 135 mmol/L (136-145) L 10/21/19 22:20 Potassium 4.0 mmol/L (3.5-5.1) 10/21/19 22:20 Chloride 100 mmol/L (98-107) 10/21/19 22:20 Carbon Dioxide 24 mmol/L (21-32) 10/21/19 22:20 Anion Gap 11.0 (3-11) 10/21/19 22:20 BUN 15 mg/dl (7-18) 10/21/19 22:20 Creatinine 0.96 mg/dl (0.6-1.2) 10/21/19 22:20 Est Cr Clr Drug Dosing 91.5 ml/min 10/21/19 22:20 Est GFR ( Amer) 77.7 10/21/19 22:20 Est GFR (Non-Af Amer) 67.0 10/21/19 22:20 BUN/Creatinine Ratio 15.7 (10-20) 10/21/19 22:20 Glucose 313 mg/dl (70-99) H* 10/21/19 22:20 POC Glucose 287 mg/dl (70-99) H 10/21/19 23:50 Calcium 9.1 mg/dl (8.5-10.1) 10/21/19 22:20 Total Bilirubin 0.7 mg/dl (0.2-1) 10/21/19 22:20 AST 16 U/L (15-37) 10/21/19 22:20 ALT 34 U/L (12-78) 10/21/19 22:20 Alkaline Phosphatase 118 U/L (45-117) H 10/21/19 22:20 Total Protein 8.1 gm/dl (6.4-8.2) 10/21/19 22:20 Albumin 3.5 gm/dl (3.4-5.0) 10/21/19 22:20 Globulin 4.6 gm/dl (2.5-4.0) H 10/21/19 22:20 Albumin/Globulin Ratio 0.8 (0.9-2) L 10/21/19 22:20 Beta-Hydroxybutyric Acd 19.51 mg/dl (0.2-2.81) H 10/21/19 22:20 Urine Color Yellow 10/21/19 22:10 Urine Appearance Clear (Clear) 10/21/19 22:10 Urine pH 6.5 (4.5-7.5) 10/21/19 22:10 Ur Specific [place] 1.023 (1.000-1.030) 10/21/19 22:10 Urine Protein 1+ (Negative) H 10/21/19 22:10 Urine Glucose (UA) 3+ (Negative) H 10/21/19 22:10 Urine Ketones 3+ (Negative) H 10/21/19 22:10 Urine Blood 2+ (Negative) H 10/21/19 22:10 Urine Nitrite Negative (Negative) 10/21/19 22:10 Urine Bilirubin Negative (Negative) 10/21/19 22:10 Urine Urobilinogen Negative (Negative) 10/21/19 22:10 Ur Leukocyte Esterase Negative (Negative) 10/21/19 22:10 Urine WBC (Auto) 1-5 /hpf (0-5) 10/21/19 22:10 Urine RBC (Auto) >30 /hpf (0-4) H 10/21/19 22:10 U Hyaline Cast (Auto) 1-5 /lpf (0-5) 10/21/19 22:10 U Epithel Cells (Auto) 20-30 /lpf (0-5) H 10/21/19 22:10 Urine Bacteria (Auto) Negative (Negative) 10/21/19 22:10 Urine Test Negative (Negative) 10/21/19 22:[address] abdomen pelvis initial read: 9 x 15 mm stone right UPJ with moderate severe obstructive changes. Bilateral nephrolithiasis. Cholecystectomy. Fatty liver. EKG as per my interpretation: Rate 85, NSR, LAD, LAFB,. Abnormalities inferior leads
[2019-10-22 00:29] LABS: Magnesium 1.7 mg/dl (1.8-2.4)
[2019-10-22] MEDS ORDERED: INSULIN GLARGINE SOLOSTAR 100 UNITS/ML 3 ML PEN SC STA (00:42)
[2019-10-22] MEDS ORDERED: GLUCOSE 10 TABS/TUBE PO PRN (01:37)
[2019-10-22] MEDS ORDERED: GLUCAGON FOR INJ 1 MG VIAL SQ PRN (01:37)
[2019-10-22] MEDS ORDERED: CARBOHYDRATES FOR HYPOGLYCEMIA PO PRN (01:37)
[2019-10-22] MEDS ORDERED: LORazepam 0.5 MG/1 ML VIAL IV PRN (01:37)
[2019-10-22] MEDS ORDERED: DEXTROSE 50% 50 ML SYRINGE IV PRN (01:37)
[2019-10-22] MEDS ORDERED: ACETAMINOPHEN 325 MG TAB PO PRN (01:37)
[2019-10-22] MEDS ORDERED: GLUCOSE 40% GEL 15 GM TUBE PO PRN (01:37)
[2019-10-22] MEDS: SODIUM CHLORIDE 0.9% 1000ML 1,000 ML IV SCH ×2 (01:49→18:28)
[2019-10-22] MEDS: INSULIN ASPART 100 UNITS/ML 3 ML PEN SC SCH ×4 (02:03→20:40)
[2019-10-22] MEDS ORDERED: MAGNESIUM SULFATE / D5W 1 GM/100 ML BAG IV ONE (03:45)
[2019-10-22 05:55] LABS: Estimated Average Glucose 315 mg/dl; Hemoglobin A1C 12.6 % (4.5-5.6)
[2019-10-22 07:14] LABS: Basophils # (auto) 0.04 K/uL (0-0.2); Basophils % (auto) 0.3 %; Eosinophils # (auto) 0.02 K/uL (0-0.5); Eosinophils % (auto) 0.1 %; Hematocrit (blood only) 40.5 % (37-47); Hemoglobin 13.3 g/dL (12.0-16.0); Immature Granulocytes # (auto) 0.04 K/uL (0.00-0.02); Immature Granulocytes % (auto) 0.3 %; Lymphocytes # (auto) 2.57 K/uL (1.2-3.4); Lymphocytes % (auto) 18.4 %; Mean Corpuscular Hemoglobin 28.5 pg (25-34); Mean Corpuscular Hgb Conc 32.8 g/dL (32-36); Mean Corpuscular Volume 86.7 fL (80-100); Mean Platelet Volume 11.8 fL (7.4-10.4); Monocytes # (auto) 0.81 K/uL (0.11-0.59); Monocytes % (auto) 5.8 %; Neutrophils # (auto) 10.52 K/uL (1.4-6.5); Neutrophils % (auto) 75.1 %; Platelet Count 231 K/uL (130-400); RDW Coefficient of Variation 12.5 % (11.5-14.5); RDW Standard Deviation 39.7 fL (36.4-46.3); Red Blood Count 4.67 M/uL (4.2-5.4)
[2019-10-22 07:41] LABS: BUN Creatinine Ratio 16.8 (10-20); Calcium 8.4 mg/dl (8.5-10.1); Creatinine Clr Calc Pharmacy 81.4 ml/min; Est GFR (African American) 67.4; Est GFR (Non-African American) 58.2; Magnesium 2.1 mg/dl (1.8-2.4); Potassium 4.1 mmol/L (3.5-5.1)
[2019-10-22] MEDS: ASPIRIN 81 MG ECTAB PO SCH (08:06)
[2019-10-22] MEDS: lisinopriL 10 MG TAB PO SCH (08:06)
[2019-10-22] MEDS: ATORVASTATIN 20 MG TAB PO SCH (08:06)
--- NOTE | 2019-10-22 08:55 | Urology Consultation ---
Date of Consultation October 22, 2019 Assessment & Plan (1) Renal colic on right side: Patient with a significant history of nephrolithiasis and currently presenting with a large stone obstructing the right UPJ as well as several other stones within the kidney Currently her pain is well controlled and she is nontoxic, however I suspect her pain will recur in the near future I have discussed intervention in the form of cystoscopy and stent placement I have discussed this with the operating room and because of numerous emergency cases going on right now they requested we delay till tomorrow morning if possible and I think that is a reasonable request and she should be safe to do so If she experiences fevers or decompensates in other ways we will intervene emergently N.p.o. after midnight History of Present Illness Attending Physician: Jp Swenson MD History of Present Illness 54-year-old female with a long history of kidney stones including numerous prior interventions through the [facility] [employer] system She has had stents, ureteroscopy, PCNL She previously followed with Dr. Henao who is recently moved out of the area She presented to the emergency room yesterday with severe right flank pain and symptoms of a kidney stone Imaging revealed several stones within the kidney as well as a UPJ stone causing obstruction and significant perinephric stranding She has not exhibited signs of sepsis She has been afebrile She is currently hemodynamically stable Labs appropriate Pain is tolerable but present family history of stones as well Allergies Allergy/AdvReac Type Severity Reaction Status Date / Time No Known Allergies Allergy Unknown Verified 10/21/19 22:58 Home Medications Home Medications Medication Instructions Recorded Confirmed Type aspirin [Aspir-81] 81 mg PO QAM 10/21/19 10/21/19 History atorvastatin 20 mg PO DAILY 10/21/19 10/21/19 History ibuprofen [Advil] 400 mg PO Q6H PRN 10/21/19 10/21/19 History insulin glargine [Lantus U-100 50 unit SUBCUT HS 10/21/19 10/21/19 History Insulin] lisinopril 5 mg PO DAILY 10/21/19 10/21/19 History metformin 1,000 mg PO BID 10/21/19 10/21/19 History Patient History Medical History Diabetes mellitus type II, uncontrolled (Chronic) H/O renal calculi (Chronic) Hypertension (Chronic) Surgical History History of cholecystectomy (Chronic) Social History Preferred Language: Kitt[place] 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 Beliefs That Will Affect Care: None Current Living Situation: Family Feels Safe at Home: Yes Smoking Status: Never smoker Hx Alcohol Use: No Hx Substance Use: No Review of Systems Constitutional: no fever, no chills and no fatigue Eyes: no worsening vision Ear, Nose, Mouth, Throat: no facial pain and no pain with swallowing Respiratory: no cough and no dyspnea Cardiovascular: no chest pain and no palpitations Gastrointestinal: + nausea; no abdominal pain and no vomiting Genitourinary: no dysuria, no difficulty urinating, no urinary frequency and no hematuria Flank pain Musculoskeletal: no back pain Integumentary: no rash and no urticaria Neurologic: no gait abnormality and no unsteadiness Psychiatric: no behavioral changes and no depression Endocrine: no fatigue Physical Exam Physical Exam: Nontoxic-appearing Minimal tenderness on the right flank Constitutional: well developed and well nourished Neck: neck nontender Respiratory: normal respiratory effort; no respiratory distress and does not use accessory muscles Cardiovascular: Rate/Rhythm: regular rate Vessels: radial pulses present Extremities: no edema Gastrointestinal (Abdomen): Inspection/Auscultation: abdomen normal to inspection Percussion/Palpation: abdomen soft; abdomen nontender and no guarding Musculoskeletal: Head/Neck/Chest: normocephalic and head atraumatic Extremities: extremities normal to inspection Skin: no rashes and no lesions Trauma: no evidence of skin trauma Neurologic: awake; not obtunded Speech / Cognition: normal speech Motor/Sensory: no tremor Psychiatric: Orientation: alert and oriented x 3 Lymphatic: no lymphadenopathy Results & Data Vital Signs (Past 12 Hours) Vital Signs Temp Pulse Pulse Resp BP BP Pulse Ox 10/22/19 08:03 36.6 C 86 16 132/75 94 10/22/19 03:50 36.8 C 89 16 138/76 94 10/22/19 02:19 90 10/22/19 02:00 36 C L 100 H 16 189/110 H 94 07/04/20 00:58 89 18 201/113 H 93 10/22/19 00:00 89 18 197/108 H 91 10/21/19 23:06 88 18 203/101 H 94 10/21/19 21:57 37.2 C 96 H 20 196/124 H 94 PG Care Time/CCT Total # of Minutes Spent Total Time Spent with Patient: Total time spent is greater than 50% in coordination of care (as documented) at patient's floor/unit and/or counseling patient: Coding Level of Care Code 08171 Inpt Consult Level 4 Diagnoses Renal colic on right side N23
--- NOTE | 2019-10-22 09:16 | CT Scan Report ---
ABDOMEN AND PELVIS CT WITHOUT CONTRAST CT DOSE: 1572.81 mGy.cm HISTORY: Acute right-sided flank pain right flank pain TECHNIQUE: Multiaxial CT images of the abdomen and pelvis were performed without contrast. A dose lo wering technique was utilized adhering to the principles of ALARA. COMPARISON STUDY: CT abdomen and pelvis 09/17/2017 FINDINGS: Minimal dependent subsegmental bibasilar atelectasis, right greater than left. No pneumatos is or pneumoperitoneum. The imaged inferior cardiac chambers are unremarkable. Hepatomegaly with hepa tic steatosis. No evidence of cirrhosis or ascites. Cholecystectomy. Unremarkable appearance of the u nenhanced spleen, pancreas and adrenal glands. 9 mm nonobstructing calculus of the inferior pole left kidney. Mild cortical thinning of the bilatera l kidneys. There are at least 5 nonobstructing calculi of the right kidney largest of which in the in ferior pole measures 1.4 cm. There is moderate right-sided hydroureteronephrosis with at least modera te perinephric stranding secondary to an obstructing 1.0 x 1.6 x 1.1 cm calculus of the right uretero pelvic junction. Urinary bladder, uterus and adnexa are unremarkable. Aorta is within normal limits. There is no adenopathy. No bowel obstruction or bowel wall thickening. Colonic diverticulosis without acute diverticulitis. M ild fecal retention. Terminal ileum and appendix are unremarkable. Mild diastases recti. Soft tissues are unremarkable. Degenerative changes of the spine, pelvis and hips. IMPRESSION: 1. Moderate right-sided hydronephrosis secondary to an obstructing 1.0 x 1.6 x 1.1 cm calculus of the ureteropelvic junction. 2. Nonobstructing bilateral nephrolithiasis. 3. No bowel obstruction or bowel wall thickening. 4. Hepatomegaly with hepatic steatosis. ACT 112: Negative or not required by law. The above report was generated using voice recognition software. It may contain grammatical, syntax o r spelling errors. Electronically signed by: Jaya Devine M.D. 10/22/2019 9:15 AM
[2019-10-22] MEDS ORDERED: Nursing to Pharmacy Communication SCH (10:00)
[2019-10-22] MEDS ORDERED: INSULIN ASPART 100 UNITS/ML 3 ML PEN SC SCH (11:30)
--- NOTE | 2019-10-22 14:38 | Electrocardiogram Report ---
Test Reason : Blood Pressure : / mmHG Vent. Rate : 084 BPM Atrial Rate : 084 BPM P-R Int : 144 ms QRS Dur : 084 ms QT Int : 400 ms P-R-T Axes : 041 002 035 degrees QTc Int : 472 ms Normal sinus rhythm Nonspecific ST and T wave abnormality Prolonged QT Abnormal ECG When compared with ECG of 22-OCT-2016 07:16, T wave inversion now evident in Inferior leads Nonspecific T wave abnormality, worse in Anterolateral leads Confirmed by Balta Bland ([id number]) on 10/22/2019 2:38:30 PM Referred By: REFERRED SELF Confirmed By:Balta Bland
--- NOTE | 2019-10-22 14:53 | Hospitalist Progress Note ---
Date of Service October 22, 2019 Assessment & Plan (1) Hypertensive urgency: Right renal colic Nephrolithiasis Obstructive uropathy --CT ABD:Moderate right-sided hydronephrosis secondary to an obstructing 1.0 x 1.6 x 1.1 cm calculus of the ureteropelvic junction. Nonobstructing bilateral nephrolithiasis. No bowel obstruction or bowel wall thickening. Hepatomegaly with hepatic steatosis. -Continue IV fluids Strain urine N.p.o. after midnight for stent placement tomorrow Appreciate urology input Pain control Continue Flomax Hypertensive urgency H/O Hypertension Likely situational secondary to pain from above Pain control Continue lisinopril Monitor DM II Uncontrolled HbA1C:12.6 Patient admits to being noncompliant with food restrictions. Hold metformin Continue insulin therapy Monitor blood glucose levels Bronchial asthma No signs of exacerbation Monitor Hyperlipidemia Continue Statin DVT Px: Lovenox SQ Code Status Full code Admission and Anticipated Discharge Date Admission Date: October 22, 2019 Subjective Patient is seen and examined at bedside. Right flank pain much improved this morning Nausea resolved Plan for stent placement tomorrow Denies any chest pain, shortness of breath, dizziness, abdominal pain Offers no other complaints Review of Systems Review of Systems: All systems reviewed & are unremarkable except as noted in HPI & below Physical Exam Physical Exam: Physical Exam: Vitals signs as noted above General Appearance:Morbidly Obese, no apparent distress Head: normocephalic, Atraumatic Eyes: normal inspection, EOMI Neck: supple, Trachea midline Respiratory/Chest: Normal breath sounds, CTA Cardiovascular: S1, S2, No murmur Abdomen/GI:Soft, Right flank tender, Bowel sounds present Extremities/Musculoskelatal:normal inspection, no edema Neurologic/Psych:AAOX3, grossly no focal neurological deficits Skin: normal color, warm Results & Data Results & Data ([facility]) Vital Signs (Past 12 Hours) Vital Signs Temp Pulse Pulse Resp BP Pulse Ox 10/22/19 11:30 36.2 C L 88 20 111/70 94 10/22/19 08:03 36.6 C 86 16 132/75 94 10/22/19 07:00 82 10/22/19 03:50 36.8 C 89 16 138/76 94 Laboratory Results Short CBC 10/21/19 10/22/19 Range/Units 22:20 06:34 WBC 15.61 H 14.00 H (4.8-10.8) K/uL Hgb 15.8 13.3 (12.0-16.0) g/dL Hct 46.2 40.5 (37-47) % Plt Count 251 231 (130-400) K/uL BMP 10/21/19 10/22/19 22:20 06:34 Sodium 135 L 137 Potassium 4.0 4.1 Chloride 100 103 Carbon Dioxide 24 27 BUN 15 18 Creatinine 0.96 1.08 Glucose 313 H* 281 H Calcium 9.1 8.4 L Liver Function 10/21/19 Range/Units 22:20 Total Bilirubin 0.7 (0.2-1) mg/dl AST 16 (15-37) U/L ALT 34 (12-78) U/L Alkaline Phosphatase 118 H (45-117) U/L Albumin 3.5 (3.4-5.0) gm/dl Urine 10/21/19 Range/Units 22:10 Urine Color Yellow Urine Appearance Clear (Clear) Urine pH 6.5 (4.5-7.5) Ur Specific [place] 1.023 (1.000-1.030) Urine Protein 1+ H (Negative) Urine Glucose (UA) 3+ H (Negative)
[2019-10-22] MEDS ORDERED: INSULIN GLARGINE SOLOSTAR 100 UNITS/ML 3 ML PEN SC SCH ×2 (20:45→21:00)
[2019-10-22] MEDS ORDERED: TAMSULOSIN HCL 0.4 MG CAP PO SCH (21:00)
[2019-10-23] MEDS ORDERED: Nursing to Pharmacy Communication SCH (00:15)
[2019-10-23] MEDS: INSULIN ASPART 100 UNITS/ML 3 ML PEN SC SCH ×3 (05:49→12:06)
[2019-10-23] MEDS ORDERED: CIPROFLOXACIN / D5W 400 MG/200 ML BAG IV SCH (06:00)
[2019-10-23] MEDS ORDERED: ePHEDrine sulfate 50 MG/ML AMP IV PRN (07:12)
[2019-10-23] MEDS ORDERED: ATROPINE SULFATE 0.1 MG/ML 10ML SYR IV PRN (07:12)
[2019-10-23] MEDS ORDERED: ONDANSETRON INJ 2 MG/ML 2 ML VIAL IV PRN (07:12)
[2019-10-23] MEDS ORDERED: fentaNYL citrate 100 MCG/2 ML VIAL IV PRN (07:12)
--- NOTE | 2019-10-23 07:19 | Urology Progress Note ---
Date of Service October 23, 2019 Assessment & Plan (1) Ureterolithiasis: Right UPJ calculus with obstruction Plan for cystoscopy right ureteral stent placement this morning Subjective No major changes overnight Still with intermittent right flank pain Prepared for the OR this morning for right ureteral stent placement Review of Systems Review of Systems: All systems reviewed & are unremarkable except as noted in HPI & below Physical Exam Constitutional: well developed and well nourished Neck: neck nontender Respiratory: normal respiratory effort; no respiratory distress and does not use accessory muscles Cardiovascular: Rate/Rhythm: regular rate Vessels: radial pulses present Extremities: no edema Gastrointestinal (Abdomen): Inspection/Auscultation: abdomen normal to inspection Percussion/Palpation: abdomen soft; abdomen nontender and no guarding Musculoskeletal: Head/Neck/Chest: normocephalic and head atraumatic Extremities: extremities normal to inspection Skin: no rashes and no lesions Trauma: no evidence of skin trauma Neurologic: awake; not obtunded Speech / Cognition: normal speech Motor/Sensory: no tremor Psychiatric: Orientation: alert and oriented x 3 Lymphatic: no lymphadenopathy Results & Data Vital Signs (Past 12 Hours) Vital Signs Temp Pulse Pulse Resp BP Pulse Ox 10/23/19 03:37 37.0 C 88 19 139/82 93 10/22/19 23:51 36.6 C 84 19 145/79 H 94 10/22/19 23:03 86 10/22/19 19:55 36.8 C 98 H 20 149/87 H 93 PG Care Time/CCT Total # of Minutes Spent Total Time Spent with Patient: Total time spent is greater than 50% in coordination of care (as documented) at patient's floor/unit and/or counseling patient: Coding Level of Care Code 96928 Subseq Hosp Care Lvl 2 Diagnoses Ureterolithiasis N20.1
[2019-10-23] MEDS: ASPIRIN 81 MG ECTAB PO SCH (07:21)
[2019-10-23] MEDS: ATORVASTATIN 20 MG TAB PO SCH (07:21)
[2019-10-23] MEDS: lisinopriL 10 MG TAB PO SCH (07:22)
[2019-10-23 07:24] LABS: Hematocrit (blood only) 39.3 % (37-47); Hemoglobin 12.9 g/dL (12.0-16.0); Mean Corpuscular Hemoglobin 28.9 pg (25-34); Mean Corpuscular Hgb Conc 32.8 g/dL (32-36); Mean Corpuscular Volume 87.9 fL (80-100); Mean Platelet Volume 11.5 fL (7.4-10.4); Platelet Count 189 K/uL (130-400); RDW Coefficient of Variation 12.9 % (11.5-14.5); RDW Standard Deviation 41.4 fL (36.4-46.3); Red Blood Count 4.47 M/uL (4.2-5.4); White Blood Count 8.31 K/uL (4.8-10.8)
[2019-10-23] MEDS ORDERED: LIDOCAINE HCL 2% 2 ML VIAL/AMP(20MG/ML) INFIL ONE (07:25)
[2019-10-23] MEDS ORDERED: MIDAZOLAM HCL 1 MG/ML 2ML VIAL ONE (07:25)
[2019-10-23] MEDS ORDERED: fentaNYL citrate 100 MCG/2 ML VIAL ONE (07:25)
[2019-10-23] MEDS ORDERED: PROPOFOL IV EMULSION 10 MG/ML 20 ML VIAL IV ONE (07:25)
--- NOTE | 2019-10-23 07:32 | Anesthesiology Consultation ---
Date of Service October 23, 2019 Assessment & Plan (1) Encounter for pre-operative examination: Chart Review Chart Review: Acceptable Risk for Surgery Consults Requested none ASA ASA3 Proposed Anesthesia Anesthesia Type: MAC Risk / Benefits Reviewed With: PT / POA / Parent / Guardian, Accepts Plan and Informed Consent Obtained History Surgery Operation Date: 10/23/19 07:30 Proposed Procedures p Ureteral Stent Insertion/Removal(Right) - Miguel Harris MD Height/Weight Height: 5 ft 3 in Weight: 139 kg Allergies Allergy/AdvReac Type Severity Reaction Status Date / Time No Known Allergies Allergy Unknown Verified 10/21/19 22:58 Medications Home Medications Medication Instructions Recorded Confirmed Last Taken aspirin [Aspir-81] 81 mg PO QAM 10/21/19 10/21/19 10/20/19 atorvastatin 20 mg PO DAILY 10/21/19 10/21/19 10/20/19 ibuprofen [Advil] 400 mg PO Q6H PRN 10/21/19 10/21/19 10/21/19 14:30 400 MG insulin glargine [Lantus U-100 50 unit SUBCUT HS 10/21/19 10/21/19 10/20/19 Insulin] lisinopril 5 mg PO DAILY 10/21/19 10/21/19 10/20/19 metformin 1,000 mg PO BID 10/21/19 10/21/19 10/20/19 Active Medications Generic Name Dose Route Start Last Admin Trade Name Freq PRN Reason Stop Dose Admin Aspirin 81 mg 10/22/19 09:00 10/23/19 07:21 Ecotrin Ectab PO 11/21/19 08:59 Not Given QAM JUAN Atorvastatin Calcium 20 mg 10/22/19 09:00 10/23/19 07:21 Lipitor PO 11/21/19 08:59 Not Given DAILY JUAN Promethazine HCl 12.5 mg/ 50.5 mls @ 202 mls/hr 10/21/19 23:56 10/22/19 02:18 Sodium Chloride IV 11/20/19 23:55 Infused Q6H PRN Infusion Nausea And Vomiting Sodium Chloride 1,000 mls @ 60 mls/hr 10/22/19 01:37 10/22/19 18:28 Nss 1000ml IV 11/21/19 01:36 60 mls/hr .[id number] JUAN Administration Insulin Aspart 0 units 10/23/19 06:00 10/23/19 05:49 Novolog Flexpen SC 11/22/19 05:59 3 units Q6 JUAN Administration Insulin Glargine 45 units 10/22/19 20:45 10/22/19 20:44 Lantus Solostar Pen SC 11/21/19 20:44 45 units HS JUAN Administration Lisinopril 10 mg 10/22/19 09:00 10/23/19 07:22 Zestril PO 11/21/19 08:59 Not Given DAILY JUAN Oxycodone HCl 5 - 10 mg 10/21/19 23:56 10/22/19 01:53 Roxicodone Immediate Rel PO 11/04/19 23:55 5 mg Q4H PRN Administration Pain Tamsulosin HCl 0.4 mg 10/22/19 21:00 10/22/19 20:36 Flomax PO 11/21/19 20:59 0.4 mg HS JUAN Administration NPO Date Last Intake of Fluids: 10/22/19 Time Last Intake of Fluids: 22:00 Date Last Intake of Solids: 10/22/19 Time Last Intake of Solids: 17:00 Past Medical History Medical History Diabetes mellitus type II, uncontrolled (Chronic) H/O renal calculi (Chronic) Hypertension (Chronic) Exercise / Class Metabolic Activity II 4-5 Yardwork/Stairs/Walk up hill Past Surgical History Surgical History History of cholecystectomy (Chronic) Past Anesthesia History No Hx of Anesthesia Complications and No Family Hx of Anesthesia Complications History of PONV No Hx of PONV and No Hx of Motion Sickness Social History Smoking Status: Never smoker Hx Alcohol Use: No Hx Substance Use: No Physical Exam Vital Signs Last Vital Signs Temp 98.6 F 10/23/19 03:37 Pulse 88 10/23/19 03:37 Resp 19 10/23/19 03:37 BP 139/82 10/23/19 03:37 Pulse Ox 93 10/23/19 03:37 ENMT Mouth: + chipped teeth Thyromental Distance: > or= 3.5 Finger Breadths Mallampati Class: III Neck normal visual inspection Respiratory normal respiratory effort Auscultation: lungs clear to auscultation bilaterally Cardiovascular Rate/Rhythm: regular rate and regular rhythm Testing Laboratory Results 10/23/19 07:03 Hemoglobin A1c 12.6 % (4.5-5.6) H 10/21/19 22:20 Urine Color Yellow 10/21/19 22:10 Urine Appearance Clear (Clear) 10/21/19 22:10 Urine pH 6.5 (4.5-7.5) 10/21/19 22:10 Ur Specific [place] 1.023 (1.000-1.030) 10/21/19 22:10 Urine Protein 1+ (Negative) H 10/21/19 22:10 Urine Glucose (UA) 3+ (Negative) H 10/21/19 22:10 Urine Ketones 3+ (Negative) H 10/21/19 22:10 Urine Nitrite Negative (Negative) 10/21/19 22:10 Ur Leukocyte Esterase Negative (Negative) 10/21/19 22:10 Urine WBC (Auto) 1-5 /hpf (0-5) 10/21/19 22:10 Urine RBC (Auto) >30 /hpf (0-4) H 10/21/19 22:10 U Hyaline Cast (Auto) 1-5 /lpf (0-5) 10/21/19 22:10 U Epithel Cells (Auto) 20-30 /lpf (0-5) H 10/21/19 22:10 Urine Bacteria (Auto) Negative (Negative) 10/21/19 22:10 Urine Test Negative (Negative) 10/21/19 22:10 10/23/19 10/22/19 10/22/19 05:43 20:03 20:02 POC Glucose 197 H 285 H 272 H 10/22/19 20:01 POC Glucose 312 H* 10/21/19 22:10 Urine Test Negative
[2019-10-23 07:54] LABS: BUN Creatinine Ratio 25.7 (10-20); Calcium 8.3 mg/dl (8.5-10.1); Creatinine Clr Calc Pharmacy 121.1 ml/min; Est GFR (African American) 108.2; Est GFR (Non-African American) 93.4; Magnesium 1.9 mg/dl (1.8-2.4); Potassium 3.9 mmol/L (3.5-5.1)
--- NOTE | 2019-10-23 08:28 | Operative Report ---
PG Post Operative Report Pre & Post Diagnosis Operation Date: 10/23/19 07:30 Pre-Op Diagnosis: Right Ureteral Stone, Hydronephrosis Post-Op Diagnosis: Right Ureteral Stone, Hydronephrosis I identified the patient and participated in the time-out.: Yes Procedure Operation Date: 10/23/19 07:30 Actual Procedures p Ureteral Stent Insertion,Right(Not Applicable) - Miguel Harris MD Surgeon Niko Harris MD Program Dir none Estimated Blood Loss 0 Findings Consistent with Post-Op Diagnosis Specimens none Description of Procedure The patient was identified in the preoperative holding area, appropriate informed consents were reviewed and completed and the patient was transferred to the operative suite. Upon arrival, appropriate antibiotics and anesthesia were administered and the patient was placed in dorsal lithotomy position and prepped and draped in sterile fashion. To begin the case I passed a 22 Serbian cystoscope with 30 degree lens. Inspection revealed numerous small fragments of stone within the bladder. This was irrigated out of the bladder. There was cloudy urine within the bladder., After irrigating the bladder copiously I was able to visualize both the UOs and the wall of the bladder. There were no abnormalities of the bladder wall appreciated. I then turned my attention to the right UO which was cannulated with a sensor wire and a 5 Serbian open-ended catheter. The wire advanced to the kidney without difficulty. Of note there were numerous opacities within the area of the kidney consistent with her preoperative imaging and the location of the stone seen on that imaging. I then placed a 6 Serbian by 24 cm double-J ureteral stent seeing a good curl in the kidney as well as the bladder. There was significant cloudy urine draining through the lumen and holes of the stent. The case was concluded. I attest to the content of the Intraoperative Record and any orders documented therein. Any exceptions are noted below.
--- NOTE | 2019-10-23 08:43 | Anesthesiology Progress Note ---
Date of Service October 23, 2019 Anesthesia Post Procedure Vital Signs Vital Signs: Temp Pulse Pulse Resp BP Pulse Ox 10/23/19 08:25 97.7 F 88 18 155/84 H 94 10/23/19 08:15 86 18 132/84 99 10/23/19 08:07 97.0 F L 84 14 135/88 98 10/23/19 07:46 97.7 F 70 20 136/81 92 10/23/19 03:37 98.6 F 88 19 139/82 93 10/22/19 23:51 97.9 F 84 19 145/79 H 94 10/22/19 23:03 86 10/22/19 19:55 98.2 F 98 H 20 149/87 H 93 10/22/19 15:50 84 10/22/19 15:00 98.2 F 87 20 107/60 94 10/22/19 11:30 97.2 F L 88 20 111/70 94 Pain Intensity Right Flank: Pain Intensity: 2 Transfer of Care Handoff Completed per policy Notes Mental Status: alert / awake / arousable and participated in evaluation Patient Amnestic to Procedure: Yes Nausea / Vomiting: adequately controlled Pain: adequately controlled Airway Patency, RR, SpO2: stable & adequate BP & HR: stable & adequate Hydration State: stable & adequate Anesthetic Complications: no major complications apparent and Pt Satisfied with anesthetic care
--- NOTE | 2019-10-23 09:21 | Fluoroscopy Report ---
FL retrograde includes kub CLINICAL HISTORY: RT SIDE CYSTO COMPARISON STUDY: CT of the abdomen and pelvis October 21, 2019. FLUOROSCOPY TIME: 4 seconds. FLUOROSCOPIC IMAGES: 1 FINDINGS: Fluoroscopy was provided for right retrograde exam with ureteral stent insertion. Right ure teral stent is in place. Suspected right renal calculi are noted. IMPRESSION: Fluoroscopy provided for right retrograde exam with ureteral stent insertion. ACT 112: Negative or not required by law. Electronically signed by: Mart Ortiz M.D. 10/23/2019 9:19 AM
[2019-10-23] MEDS: SODIUM CHLORIDE 0.9% 1000ML 1,000 ML IV SCH (09:53)
--- NOTE | 2019-10-23 13:40 | Hospitalist Progress Note ---
Date of Service October 23, 2019 Assessment & Plan (1) Hypertensive urgency: Right renal colic Nephrolithiasis Obstructive uropathy --CT ABD:Moderate right-sided hydronephrosis secondary to an obstructing 1.0 x 1.6 x 1.1 cm calculus of the ureteropelvic junction. Nonobstructing bilateral nephrolithiasis. No bowel obstruction or bowel wall thickening. Hepatomegaly with hepatic steatosis. --S/P right ureteral stent placement on 10/23/19 -Received IV fluids Strain urine Appreciate urology input Pain control Continue Flomax Needs follow-up with urology upon discharge Plan to discharge on ciprofloxacin for 3 more days Hypertensive urgency H/O Hypertension Likely situational secondary to pain from above Pain control Continue lisinopril Monitor DM II Uncontrolled HbA1C:12.6 Patient admits to being noncompliant with food restrictions. Hold metformin Continue insulin therapy Monitor blood glucose levels Bronchial asthma No signs of exacerbation Monitor Hyperlipidemia Continue Statin DVT Px: Lovenox SQ Code Status Full code Admission and Anticipated Discharge Date Admission Date: October 22, 2019 Subjective Patient is seen and examined at bedside. Doing well today Had ureteral stent placement today Only has minimal right flank discomfort Denies any dysuria, hematuria Discussed with urology today Plan to get discharged home today Denies any chest pain, shortness of breath, dizziness, abdominal pain Review of Systems Review of Systems: All systems reviewed & are unremarkable except as noted in HPI & below Physical Exam Physical Exam: Physical Exam: Vitals signs as noted above General Appearance:Morbidly Obese, no apparent distress Head: normocephalic, Atraumatic Eyes: normal inspection, EOMI Neck: supple, Trachea midline Respiratory/Chest: Normal breath sounds, CTA Cardiovascular: S1, S2, No murmur Abdomen/GI:Soft, Right flank tender, Bowel sounds present Extremities/Musculoskelatal:normal inspection, no edema Neurologic/Psych:AAOX3, grossly no focal neurological deficits Skin: normal color, warm Results & Data Results & Data ([facility]) Vital Signs (Past 12 Hours) Vital Signs Temp Pulse Pulse Resp BP Pulse Ox 10/23/19 11:16 36.7 C 76 20 159/95 H 94 10/23/19 10:58 86 10/23/19 10:00 37 C 90 16 152/84 H 98 10/23/19 09:30 36.6 C 88 18 145/86 H 96 10/23/19 09:15 36.0 C L 88 20 129/82 95 10/23/19 09:00 36.6 C 85 18 154/86 H 97 10/23/19 08:25 36.5 C 88 18 155/84 H 94 10/23/19 08:15 86 18 132/84 99 10/23/19 08:07 36.1 C L 84 14 135/88 98 10/23/19 07:46 36.5 C 70 20 136/81 92 10/23/19 03:37 37.0 C 88 19 139/82 93 Laboratory Results Short CBC 10/23/19 Range/Units 07:03 WBC 8.31 (4.8-10.8) K/uL Hgb 12.9 (12.0-16.0) g/dL Hct 39.3 (37-47) % Plt Count 189 (130-400) K/uL BMP 10/23/19 07:03 Sodium 141 Potassium 3.9 Chloride 111 H Carbon Dioxide 28 BUN 19 H Creatinine 0.73 D Glucose 192 H Calcium 8.3 L
--- NOTE | 2019-10-23 14:00 | Discharge Summary ---
Date of Service October 23, 2019 Admission HPI Per Admitting Provider History obtained from patient and records. Medical history significant for hypertension, DM 2 insulin requiring, hyperlipidemia, recurrent urolithiasis, bronchial asthma as per records. Last confinement November 2016 for sepsis secondary to complicated UTI, obstructive uropathy status post stent placement. Yesterday morning patient noted achy right flank discomfort similar to kidney stone pain progressing throughout the day later followed by nausea and emesis symptoms. No hematuria, no fever, no chills. No chest pain, no S OB. No headache. Flomax given at the ER for obstructing kidney stone. 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 Admission Exam Per Admitting Provider Physical Exam Physical Exam: GENERAL: Uncomfortable, obese, pleasant, no respiratory distress SKIN: Normal color, warm HEENT: [place] palpebral conjunctivae, no ptosis, dry buccal mucosa NECK : Supple, short neck, no tenderness CHEST : CTA, no tenderness HEART : RRR, no obvious murmurs ABDOMEN: Some distention, nontender EXTREMITIES : Minimal LE swelling, no LE tenderness, no other conspicuous deformities noted NEUROLOGIC : Coherent, no facial asymmetry, no other gross focality Principal Diagnosis Right renal colic Nephrolithiasis Obstructive uropathy Discharge Data Allergies Allergy/AdvReac Type Severity Reaction Status Date / Time No Known Allergies Allergy Unknown Verified 10/21/19 22:58 Consultations 10/21/19 23:48 ED Decision to Admit Stat 10/22/19 01:37 Consult Urology Routine Procedures Performed Operation Date: 10/23/19 07:30 Actual Procedures p Ureteral Stent Insertion,Right(Not Applicable) - Miguel Harris MD CT ABD:Moderate right-sided hydronephrosis secondary to an obstructing 1.0 x 1.6 x 1.1 cm calculus of the ureteropelvic junction. Nonobstructing bilateral nephrolithiasis. No bowel obstruction or bowel wall thickening. Hepatomegaly with hepatic steatosis. Ordered Studies 10/21/19 22:22 CT abd pelvis wo con Urgent 10/23/19 07:00 [place] retrograde includes kub Routine Hospital Course (1) Hypertensive urgency: Right renal colic Nephrolithiasis Obstructive uropathy --CT ABD:Moderate right-sided hydronephrosis secondary to an obstructing 1.0 x 1.6 x 1.1 cm calculus of the ureteropelvic junction. Nonobstructing bilateral nephrolithiasis. No bowel obstruction or bowel wall thickening. Hepatomegaly with hepatic steatosis. --S/P right ureteral stent placement on 10/23/19 -Received IV fluids Strain urine Appreciate urology input Pain control Continue Flomax Needs follow-up with urology upon discharge Plan to discharge on ciprofloxacin for 3 more days Hypertensive urgency H/O Hypertension Likely situational secondary to pain from above Pain control Continue lisinopril Monitor DM II Uncontrolled HbA1C:12.6 Patient admits to being noncompliant with food restrictions. Hold metformin Continue insulin therapy Monitor blood glucose levels Bronchial asthma No signs of exacerbation Monitor Hyperlipidemia Continue Statin DVT Px: Lovenox SQ Code Status Full code Total Time Total Time Spent Total Time Spent (In Minutes): 37 minutes Discharge Plan Discharge Items Patient Disposition: Home - Self-Care Reason For Visit: HTN URGENCY, RENAL COLIC Discharge Diagnosis: Right renal colic Nephrolithiasis Obstructive uropathy Condition on Discharge: Good Activity: Resume your previous activity Exercise/Sports: Gradually increase as tolerated Non-emergency contact: Primary Care Provider and Urologist Call non-emergency contact if: you have any medication questions, your symptoms worsen, your pain is not controlled, your pain is worsening, your pain is unusual for you, your pain is concerning for you and you have a fever Follow-up/Referrals: Zulma Tripp, [Primary Care Provider] - Diet: Carb Consistent or DM2 Addtl Attending Provider Instructions: Follow-up with your primary care physician Dr. Tripp in 1 week Follow up with your Urologist next week as recommended by your urologist Complete antibiotic course ciprofloxacin 500 mg twice a day for 2 more days. Continue tamsulosin 0.4 mg daily. Other medication changes Your Lantus dose is increased from 50 units to 55 units at bedtime. Discussed with your physician for further adjustment of your medications for better control of your diabetes. Your lisinopril is increased from 5 mg to 10 mg daily for better control of your blood pressure. Seek immediate medical attention if your symptoms reoccur or worsen Pending Studies at Discharge: No Stand-Alone Forms: My [employer], Smoking Cessation Medications and DC Order Prescriptions: New tamsulosin 0.4 mg Capsule 0.4 mg PO HS 30 Days Qty: 30 RF: 0 lisinopril 10 mg Tablet 10 mg PO DAILY 30 Days Qty: 30 RF: 0 ciprofloxacin HCl 500 mg tablet 500 mg PO BID Qty: 5 RF: 0 Continued atorvastatin 20 mg Tablet 20 mg PO DAILY RF: 0 aspirin [Aspir-81] 81 mg Tablet,Delayed Release (Dr/Ec) 81 mg PO QAM RF: 0 metformin 1,000 mg Tablet 1,000 mg PO BID RF: 0 ibuprofen [Advil] 200 mg Tablet 400 mg PO Q6H PRN (Reason: Pain) RF: 0 Changed Lantus U-100 Insulin 100 unit/mL Solution 55 unit SUBCUT HS Qty: 0 RF: 0 Discontinued lisinopril 5 mg Tablet 5 mg PO DAILY RF: 0 Discharge Orders: Discharge Order (Routine); Ordered 10/23/19 Ordered By: Jp Connor/Other Patient Handouts: Managing Type 2 Diabetes Admission Data Admit Date/Time: 10/22/19 00:42 Attending Provider: Jp Swenson Admit Provider: Blanco Aguirre Primary Care Provider: Zulma Tripp Other Providers: Blanco Aguirre ; Flaco Argueta ; Filemon Corea ; Rony Cespedes I. ; Miguel Harris ; Lori Hale ; Josie Lyons ; Win Jiang ; Veronica Jeff ; Jo Dimas ; Everardo Morgan ; Alis Foy Other Interventions: Discharge Summary Assessment (RN) Last Done: 10/23/19 14:23 DC Date/Time DO NOT enter until pt leaves facility: 10/23/19 15:18
== END 2019-10-23 15:18 | disposition home or self-care (01) | DRG 661 ==
LOC: ED 21:41 → 2N 10-22 00:42

== ENCOUNTER 2020-07-17 11:41 | Inpatient (IN) ==
--- NOTE | 2020-07-17 12:10 | Emergency Department Note ---
Impression & Plan Acute CHF, Atrial flutter with rapid ventricular response, Hypertension, LBBB (left bundle branch block) ED Provider Note NAME: GURINDER ASCENCIO AGE: 55 SEX: F : 1965 ARRIVES VIA: Walk-In INFORMANT: Patient ED PROVIDER(S): Eliceo Muñoz DO CHIEF COMPLAINT: Shortness of breath HPI: Patient is a 55-year-old female who presents the ER for shortness of breath. This has been getting worse over the past month. Any exertion she gets significantly short of breath and starts getting a chest tightness. Resolves with rest. She cannot lay flat. No belly pain but admits to fullness and swelling of her legs and belly. No nausea vomiting or diarrhea. No dysuria urgency or frequency. No history of CHF. ROS: See above HPI for pertinent positives & negatives. A total of 10 systems reviewed and were otherwise negative. PAST MEDICAL HISTORY:See Below PAST SURGICAL HISTORY:See Below FAMILY HISTORY:See Below SOCIAL HISTORY:See Below HOME MEDICATIONS:See Below ALLERGIES:See Below VITALS:See Below PHYSICAL EXAMINATION: GENERAL: Sitting up in bed, alert, morbidly obese, dyspneic with conversation EYE EXAM: normal conjunctiva. OROPHARYNX: no exudate, no erythema, lips, buccal mucosa, and tongue normal and mucous membranes are moist NECK: supple, no nuchal rigidity, no adenopathy, non-tender LUNGS: Diminished bilateral bases. Normal chest wall mechanics HEART: Tachycardic, S1 normal and S2 normal ABDOMEN: abdomen soft, non-tender, normo-active bowel sounds, no masses, no rebound or guarding. UPPER EXTREMITIES: upper extremities are grossly normal. LOWER EXTREMITIES: Pitting edema in the bilateral lower extremities NEURO EXAM: Normal sensorium, cranial nerves II-XII grossly intact, normal speech, no gross weakness of arms, no gross weakness of legs. MEDICAL DECISION MAKING: Patient is a 55-year-old female who presents the ER for shortness of breath. On exam she has pitting edema and short of breath with lying flat. She was tachycardic with a heart rate of 133-135. IV was established blood work was obtained. Labs showed no significant leukocytosis or anemia. INR was unremarkable. BMP with a potassium of 3.4. Bilirubin slightly elevated at 1.2. proBNP was elevated. TSH unremarkable. Chest x-ray shows bilateral pleural effusions with pulmonary vascular congestion. EKG as an old left bundle and I favor that this is likely an underlying atrial flutter but cannot be 100% certain. Reviewed with Dr. Huertas and he agrees. Patient was given 2 inches of Nitropaste, 2 L nasal cannula and she did feel better from respiratory standpoint. She was given IV Lopressor heart rate still remained. Hospitalist requested D-dimer which was slightly elevated. This did not come back until she was on the floor. Held on any additional rate control medications D-dimer resulted in this not result until they are on the floor. Triage Nursing notes reviewed. Limited review of prior medical records performed Vital Signs: reviewed and remarkable for HTN and tachy Differential diagnosis: Differential diagnoses includes but is not limited to pneumonia, bronchitis, COPD/Asthma exacerbation, pneumothorax, pulmonary embolism, congestive heart failure, acute coronary syndrome ER treatment provided: See below Diagnostics interpreted by me: ECG: Atrial flutter rate of 135 Left axis Left bundle branch block QTC [address] depressions in the high lateral leads Cardiac Monitoring: An order was placed for continuous cardiac monitoring. The monitor shows a rate of 133 with aflutter rhythm. Laboratory studies: As stated above and show below. Imaging studies: Portable AP upright 1 view the chest shows vascular congestion with pleural effusions Consultation(s): Reviewed EKG with Dr. Tico Huertas who agreed as stated above Discussed with hospitalist for further evaluation Procedures: none Critical Care: None Past Med/Surg History Medical History Diabetes mellitus, type 2 IDDM GERD (gastroesophageal reflux disease) History of nephrolithiasis Hyperlipidemia Hypertension Kidney stones Morbid obesity Spinal stenosis Vitamin D deficiency Surgical History History of section x2 History of cholecystectomy History of nephrolithotomy with removal of calculi History of tonsillectomy Hx of cystoscopy with stone extraction Status post cystoscopy with ureteral stent placement most recent cystoscopy 11/07/19 [place] Family History Mother Pancreatic cancer Diabetes Bilateral kidney stones Sister Bilateral kidney stones Hypertension Father Heart disease Brother Bilateral kidney stones Other No family history of adverse response to anesthesia Social History Smoking Status: Never smoker Second Hand Exposure: No; Do You Dip or Chew Tobacco: No; Hx Alcohol Use: No Hx Substance Use: No Preferred Language: German Communication Ability: Effective Visual Impairment: No Limitations Legal Nurse Consultant Required: No Beliefs That Will Affect Care: None Current Living Situation: Family Other Information That Helps Us Care for You: No Feels Safe at Home: Yes Safety Concerns: Feels Safe At This Time Assistive Devices: None Allergies Allergies Allergy/AdvReac Type Severity Reaction Status Date / Time lisinopril Allergy Severe Anaphylaxis Verified 07/17/20 14:15 Home Meds Home Medications Medication Instructions Recorded Confirmed atorvastatin 20 mg PO QAM 10/21/19 07/17/20 metformin 1,000 mg PO BID 10/21/19 07/17/20 omega 5-lvv-oox-fish oil 1,000 mg 1 cap PO QAM 10/26/19 07/17/20 (120 mg-180 mg) capsule amlodipine 5 mg PO QAM 11/21/19 07/17/20 aspirin [Aspirin Low-Strength] 81 mg PO QAM 04/02/20 07/17/20 cholecalciferol (vitamin D3) 25 mcg PO DAILY 07/17/20 07/17/20 cyanocobalamin (vitamin B-12) 1,000 mcg PO DAILY 07/17/20 07/17/20 omeprazole magnesium [Prilosec OTC] 20 mg PO DAILY 07/17/20 07/17/20 Previous Rx's Medication Instructions Recorded Lantus U-100 Insulin 55 unit SUBCUT HS #0 ml 10/23/19 Results & Data (ED) Vital Signs Vital Signs - 24 hr 07/17/20 11:45 07/17/20 12:19 07/17/20 12:20 Temperature 36.8 C Temperature Source Temporal Artery Scan Pulse Rate 137 H 135 H 135 H Pulse Rate from SpO2 Sensor Respiratory Rate 24 Respiratory Effort / Characteristics Non-Labored Spontaneous Respiratory Depth Normal Blood Pressure 165/86 H Blood Pressure Mean 112 Pulse Oximetry 94 90 Oxygen Delivery Method Room Air Room Air Sepsis Recent Fever Within 48 Hours No Sepsis New/Unexplained Change in Mental Status N/A Sepsis Action Taken by Nursing No Action Required Oxygen Flow Rate - Titration 2 Pulse Oximetry Post Tiitration 97 07/17/20 12:30 07/17/20 12:40 07/17/20 12:50 Temperature Temperature Source Pulse Rate 134 H 135 H 135 H Pulse Rate from SpO2 Sensor 134 H 136 H 134 H Respiratory Rate Respiratory Effort / Characteristics Respiratory Depth Blood Pressure Blood Pressure Mean Pulse Oximetry 97 100 99 Oxygen Delivery Method Sepsis Recent Fever Within 48 Hours Sepsis New/Unexplained Change in Mental Status Sepsis Action Taken by Nursing Oxygen Flow Rate - Titration Pulse Oximetry Post Tiitration 07/17/20 13:00 07/17/20 13:10 07/17/20 13:20 Temperature Temperature Source Pulse Rate 134 H 134 H 133 H Pulse Rate from SpO2 Sensor 134 H 132 H 133 H Respiratory Rate Respiratory Effort / Characteristics Respiratory Depth Blood Pressure 167/116 H Blood Pressure Mean 133 Pulse Oximetry 98 99 99 Oxygen Delivery Method Sepsis Recent Fever Within 48 Hours Sepsis New/Unexplained Change in Mental Status Sepsis Action Taken by Nursing Oxygen Flow Rate - Titration Pulse Oximetry Post Tiitration 07/17/20 13:30 07/17/20 13:31 07/17/20 13:35 Temperature Temperature Source Pulse Rate 133 H 132 H 133 H Pulse Rate from SpO2 Sensor 133 H 132 H Respiratory Rate 22 Respiratory Effort / Characteristics Respiratory Depth Blood Pressure 161/101 H 161/101 H Blood Pressure Mean 121 Pulse Oximetry 99 98 Oxygen Delivery Method Sepsis Recent Fever Within 48 Hours Sepsis New/Unexplained Change in Mental Status Sepsis Action Taken by Nursing Oxygen Flow Rate - Titration Pulse Oximetry Post Tiitration Laboratory Data Result diagrams: 07/17/20 12:25 07/17/20 12:25 Lab Results 07/17/20 07/17/20 07/17/20 Range/Units 12:25 12:25 12:25 WBC 8.51 (4.8-10.8) K/uL RBC 4.60 (4.2-5.4) M/uL Hgb 13.4 (12.0-16.0) g/dL Hct 40.2 (37-47) % MCV 87.4 (80-100) fL MCH 29.1 (25-34) pg MCHC 33.3 (32-36) g/dL RDW Std Deviation 42.6 (36.4-46.3) fL RDW Coeff of Nancy 13.3 (11.5-14.5) % Plt Count 233 (130-400) K/uL MPV 12.8 H (7.4-10.4) fL Immature Gran % (Auto) 0.2 % Neut % (Auto) 78.6 % Lymph % (Auto) 14.0 % Isabela % (Auto) 5.9 % Eos % (Auto) 0.7 % Baso % (Auto) 0.6 % Neut # (Auto) 6.69 H (1.4-6.5) K/uL Lymph # (Auto) 1.19 L (1.2-3.4) K/uL Isabela # (Auto) 0.50 (0.11-0.59) K/uL Eos # (Auto) 0.06 (0-0.5) K/uL Baso # (Auto) 0.05 (0-0.2) K/uL Immature Gran # (Auto) 0.02 (0.00-0.02) K/uL PT (9.0-12.0) Seconds INR (0.9-1.1) APTT (21.0-31.0) Seconds PTT Ratio D-Dimer (0-500) ug/L FEU Sodium 139 (136-145) mmol/L Potassium 3.4 L (3.5-5.1) mmol/L Chloride 104 (98-107) mmol/L Carbon Dioxide 26 (21-32) mmol/L Anion Gap 9.0 (3-11) BUN 9 (7-18) mg/dl Creatinine 0.88 (0.6-1.2) mg/dl Est Cr Clr Drug Dosing 94.2 ml/min Est GFR ( Amer) 85.7 Est GFR (Non-Af Amer) 74.0 BUN/Creatinine Ratio 10.5 (10-20) Glucose 279 H (70-99) mg/dl Calcium 8.5 (8.5-10.1) mg/dl Magnesium (1.8-2.4) mg/dl Total Bilirubin 1.2 H (0.2-1) mg/dl AST 18 (15-37) U/L ALT 26 (12-78) U/L Alkaline Phosphatase 99 (45-117) U/L Troponin I < 0.015 (0-0.045) ng/ml NT-Pro-B Natriuret Pep 2201 H (0-900) pg/ml Total Protein 7.4 (6.4-8.2) gm/dl Albumin 3.3 L (3.4-5.0) gm/dl Globulin 4.1 H (2.5-4.0) gm/dl Albumin/Globulin Ratio 0.8 L (0.9-2) Lipase 86 (73-393) U/L TSH (0.300-4.500) uIu/ml COVID-19 Eval Order CovFluRsv at [facility] SARS-CoV-2 (PCR) (Negative) Influenza Type A (PCR) (Neg) Influenza Type B (PCR) (Neg) RSV (RT-PCR) (Neg) 07/17/20 07/17/20 07/17/20 Range/Units 12:25 12:25 12:25 WBC (4.8-10.8) K/uL RBC (4.2-5.4) M/uL Hgb (12.0-16.0) g/dL Hct (37-47) % MCV (80-100) fL MCH (25-34) pg MCHC (32-36) g/dL RDW Std Deviation (36.4-46.3) fL RDW Coeff of Nancy (11.5-14.5) % Plt Count (130-400) K/uL MPV (7.4-10.4) fL Immature Gran % (Auto) % Neut % (Auto) % Lymph % (Auto) % Isabela % (Auto) % Eos % (Auto) % Baso % (Auto) % Neut # (Auto) (1.4-6.5) K/uL Lymph # (Auto) (1.2-3.4) K/uL Isabela # (Auto) (0.11-0.59) K/uL Eos # (Auto) (0-0.5) K/uL Baso # (Auto) (0-0.2) K/uL Immature Gran # (Auto) (0.00-0.02) K/uL PT (9.0-12.0) Seconds INR (0.9-1.1) APTT (21.0-31.0) Seconds PTT Ratio D-Dimer 1820 H* (0-500) ug/L FEU Sodium (136-145) mmol/L Potassium (3.5-5.1) mmol/L Chloride (98-107) mmol/L Carbon Dioxide (21-32) mmol/L Anion Gap (3-11) BUN (7-18) mg/dl Creatinine (0.6-1.2) mg/dl Est Cr Clr Drug Dosing ml/min Est GFR ( Amer) Est GFR (Non-Af Amer) BUN/Creatinine Ratio (10-20) Glucose (70-99) mg/dl Calcium (8.5-10.1) mg/dl Magnesium 1.7 L (1.8-2.4) mg/dl Total Bilirubin (0.2-1) mg/dl AST (15-37) U/L ALT (12-78) U/L Alkaline Phosphatase (45-117) U/L Troponin I (0-0.045) ng/ml NT-Pro-B Natriuret Pep (0-900) pg/ml Total Protein (6.4-8.2) gm/dl Albumin (3.4-5.0) gm/dl Globulin (2.5-4.0) gm/dl Albumin/Globulin Ratio (0.9-2) Lipase (73-393) U/L TSH (0.300-4.500) uIu/ml COVID-19 Eval Order SARS-CoV-2 (PCR) NEGATIVE (Negative) Influenza Type A (PCR) Negative (Neg) Influenza Type B (PCR) Negative (Neg) RSV (RT-PCR) Negative (Neg) 07/17/20 07/17/20 Range/Units 12:25 13:26 WBC (4.8-10.8) K/uL RBC (4.2-5.4) M/uL Hgb (12.0-16.0) g/dL Hct (37-47) % MCV (80-100) fL MCH (25-34) pg MCHC (32-36) g/dL RDW Std Deviation (36.4-46.3) fL RDW Coeff of Nancy (11.5-14.5) % Plt Count (130-400) K/uL MPV (7.4-10.4) fL Immature Gran % (Auto) % Neut % (Auto) % Lymph % (Auto) % Isabela % (Auto) % Eos % (Auto) % Baso % (Auto) % Neut # (Auto) (1.4-6.5) K/uL Lymph # (Auto) (1.2-3.4) K/uL Isabela # (Auto) (0.11-0.59) K/uL Eos # (Auto) (0-0.5) K/uL Baso # (Auto) (0-0.2) K/uL Immature Gran # (Auto) (0.00-0.02) K/uL PT 11.7 (9.0-12.0) Seconds INR 1.2 H (0.9-1.1) APTT 23.8 (21.0-31.0) Seconds PTT Ratio 0.9 D-Dimer (0-500) ug/L FEU Sodium (136-145) mmol/L Potassium (3.5-5.1) mmol/L Chloride (98-107) mmol/L Carbon Dioxide (21-32) mmol/L Anion Gap (3-11) BUN (7-18) mg/dl Creatinine (0.6-1.2) mg/dl Est Cr Clr Drug Dosing ml/min Est GFR ( Amer) Est GFR (Non-Af Amer) BUN/Creatinine Ratio (10-20) Glucose (70-99) mg/dl Calcium (8.5-10.1) mg/dl Magnesium (1.8-2.4) mg/dl Total Bilirubin (0.2-1) mg/dl AST (15-37) U/L ALT (12-78) U/L Alkaline Phosphatase (45-117) U/L Troponin I (0-0.045) ng/ml NT-Pro-B Natriuret Pep (0-900) pg/ml Total Protein (6.4-8.2) gm/dl Albumin (3.4-5.0) gm/dl Globulin (2.5-4.0) gm/dl Albumin/Globulin Ratio (0.9-2) Lipase (73-393) U/L TSH 1.100 (0.300-4.500) uIu/ml COVID-19 Eval Order SARS-CoV-2 (PCR) (Negative) Influenza Type A (PCR) (Neg) Influenza Type B (PCR) (Neg) RSV (RT-PCR) (Neg) Administered Medications Diltiazem HCl 125 mg/ Dextrose 125 mls @ 15 mls/hr IV .[id number] [facility]; Protocol Stop: 08/16/20 14:59 Last Titration: 07/17/20 17:15 Dose: 15 mg/hr, 15 mls/hr Documented by: [id number] Cosigned by: [id number] Titration: 07/17/20 16:10 Dose: 10 mg/hr, 10 mls/hr Documented by: [id number] Cosigned by: [id number] Admin: 07/17/20 15:11 Dose: 5 mg/hr, 5 mls/hr Documented by: [id number] Cosigned by: [id number] Heparin Sodium/Dextrose (Heparin Sodium/Dextrose) 25,000 units in 500 mls @ 30 mls/hr IV .[id number] JUAN; Protocol Stop: 08/16/20 14:59 Last Admin: 07/17/20 15:12 Dose: 1,500 units/hr, 30 mls/hr Documented by: [id number] Cosigned by: [id number] Insulin Aspart (Insulin Aspart 100 Units/Ml 3 Ml Pen) 0 units SC ACHS [facility]; Protocol Stop: 08/16/20 16:29 Last Admin: 07/17/20 15:30 Dose: 17 units Documented by: [id number] Cosigned by: [id number] Discontinued Medications Adenosine (Adenosine Iv Soln 3 Mg/Ml 2 Ml Vial) Confirm Administered Dose 6 mg IV .STK-MED ONE Stop: 07/17/20 17:10 Last Admin: 07/17/20 17:12 Dose: 6 mg Documented by: [id number] Adenosine (Adenosine Iv Soln 3 Mg/Ml 2 Ml Vial) Confirm Administered Dose 12 mg IV .STK-MED ONE Stop: 07/17/20 17:16 Last Admin: 07/17/20 17:39 Dose: 12 mg Documented by: [id number] Diltiazem HCl (Diltiazem Hcl 5 Mg/Ml 5 Ml Vial) 5 mg IV NOW STA Stop: 07/17/20 14:37 Last Admin: 07/17/20 15:28 Dose: 5 mg Documented by: [id number] Cosigned by: [id number] Furosemide (Furosemide 40 Mg/4 Ml Vial) 40 mg IV NOW STA Stop: 07/17/20 14:37 Last Admin: 07/17/20 15:09 Dose: 40 mg Documented by: [id number] Sodium Chloride (Nss) 250 mls @ 999 mls/hr IV .Q16M ONE Stop: 07/17/20 12:48 Last Admin: 07/17/20 12:47 Dose: Not Given Documented by: [id number] Heparin Sodium (Porcine) 7,000 (units/ Syringe) 7 mls @ 10 mls/min IV NOW ONE Stop: 07/17/20 15:01 Last Admin: 07/17/20 15:11 Dose: 10 mls/min Documented by: [id number] Cosigned by: [id number] Magnesium Sulfate/Dextrose (Magnesium Sulfate / D5w) 1 gm in 100 mls @ 50 mls/hr IV ONE ONE Stop: 07/17/20 17:59 Last Admin: 07/17/20 15:58 Dose: 50 mls/hr Documented by: [id number] Insulin Glargine (Insulin Glargine Solostar 100 Units/Ml 3 Ml Pen) 50 units SC NOW ONE Stop: 07/17/20 15:16 Last Admin: 07/17/20 15:29 Dose: 50 units Documented by: [id number] Cosigned by: [id number] Ioversol (Optiray 320 125ml) 118 ml IV ONCE ONE Stop: 07/17/20 18:00 Last Admin: 07/17/20 17:59 Dose: 118 ml Documented by: [id number] Metoprolol Tartrate (Metoprolol Tartrate 1 Mg/Ml Vial) 5 mg IV NOW STA Stop: 07/17/20 13:21 Last Admin: 07/17/20 13:35 Dose: 5 mg Documented by: [id number] Nitroglycerin (Nitroglycerin 2% Ointment 30gm Tube) 2 inch EXT Q6H JUAN Stop: 08/16/20 12:59 Last Admin: 07/17/20 13:06 Dose: 2 inch Documented by: [id number] Potassium Chloride (Potassium Chloride Crtab 20 Meq Tabcr) 40 meq PO NOW STA Stop: 07/17/20 14:37 Last Admin: 07/17/20 15:32 Dose: 40 meq Documented by: [id number] Discharge Plan Visit Data Chief Complaint: Shortness of Breath/Dyspnea Stated Complaint: SHORTNESS OF BREATH ED Provider: Eliceo Muñoz Discharge Problem: Acute CHF, Atrial flutter with rapid ventricular response, Hypertension, LBBB (left bundle branch block) Patient Disposition: Admitted As Inpatient Discharge Instructions Interventions: ED Discharge Assessment Last Done: 07/17/20 14:11 Discharge Problem: Acute CHF Qualifiers: Heart failure type: unspecified Qualified Code(s): I50.9 - Heart failure, unspecified Hypertension Qualifiers: Hypertension type: unspecified Qualified Code(s): I10 - Essential (primary) hypertension
[2020-07-17] MEDS ORDERED: SODIUM CHLORIDE 0.9% 250 ML IV ONE (12:33)
--- NOTE | 2020-07-17 12:33 | XRay Report ---
XR chest 1V portable CLINICAL HISTORY: Atypical chest pain. COMPARISON STUDY: Chest radiograph November 04, 2019. FINDINGS: There is no pneumothorax. There are small bilateral pleural effusions. Note is made of inte rstitial thickening and bilateral opacities are present. Mild enlargement of the cardiac silhouette i s unchanged. IMPRESSION: Small bilateral pleural effusions with interstitial thickening and mild bilateral opacit ies. The findings may reflect pulmonary edema or an infectious process. Radiographic follow-up is rec ommended. ACT 112: Negative or not required by law. Electronically signed by: Mart Ortiz M.D. 07/17/2020 12:32 PM
[2020-07-17 12:37] LABS: Basophils # (auto) 0.05 K/uL (0-0.2); Basophils % (auto) 0.6 %; Eosinophils # (auto) 0.06 K/uL (0-0.5); Eosinophils % (auto) 0.7 %; Hematocrit (blood only) 40.2 % (37-47); Hemoglobin 13.4 g/dL (12.0-16.0); Immature Granulocytes # (auto) 0.02 K/uL (0.00-0.02); Immature Granulocytes % (auto) 0.2 %; Lymphocytes # (auto) 1.19 K/uL (1.2-3.4); Mean Corpuscular Hemoglobin 29.1 pg (25-34); Mean Corpuscular Hgb Conc 33.3 g/dL (32-36); Mean Corpuscular Volume 87.4 fL (80-100); Mean Platelet Volume 12.8 fL (7.4-10.4); Monocytes % (auto) 5.9 %; Neutrophils # (auto) 6.69 K/uL (1.4-6.5); Neutrophils % (auto) 78.6 %; Platelet Count 233 K/uL (130-400); RDW Coefficient of Variation 13.3 % (11.5-14.5); RDW Standard Deviation 42.6 fL (36.4-46.3); White Blood Count 8.51 K/uL (4.8-10.8)
[2020-07-17] MEDS ORDERED: NITROGLYCERIN 2% OINTMENT 30GM TUBE EXT SCH (13:00)
[2020-07-17 13:02] LABS: Alanine Aminotransferase 26 U/L (12-78); Albumin Level 3.3 gm/dl (3.4-5.0); Aspartate Aminotransferase 18 U/L (15-37); BUN Creatinine Ratio 10.5 (10-20); Blood Urea Nitrogen 9 mg/dl (7-18); Calcium 8.5 mg/dl (8.5-10.1); Carbon Dioxide 26 mmol/L (21-32); Chloride 104 mmol/L (98-107); Creatinine Clr Calc Pharmacy 94.2 ml/min; Est GFR (African American) 85.7; Glucose 279 mg/dl (70-99); Lipase 86 U/L (73-393); Potassium 3.4 mmol/L (3.5-5.1); Sodium 139 mmol/L (136-145)
[2020-07-17 13:07] LABS: Albumin Globulin Ratio 0.8 (0.9-2); Alkaline Phosphatase 99 U/L (45-117); Bilirubin,Total 1.2 mg/dl (0.2-1); Globulin 4.1 gm/dl (2.5-4.0); NT Pro B Type Natriuretic Pept 2201 pg/ml (0-900); Total Protein 7.4 gm/dl (6.4-8.2); Troponin I < 0.015 ng/ml (0-0.045)
[2020-07-17] MEDS ORDERED: METOPROLOL TARTRATE 1 MG/ML VIAL IV STA (13:20)
[2020-07-17 13:42] LABS: Influenza A virus by PCR Negative (Neg); Influenza B virus by PCR Negative (Neg); RSV by PCR Negative (Neg); SARS CoV2 RNA(COVID-19) InHosp NEGATIVE (Negative)
[2020-07-17] MEDS ORDERED: STAT IV Infusion **Titration per Protocol STA (14:36)
[2020-07-17] MEDS ORDERED: dilTIAZem HCl 5 MG/ML 5 ML VIAL IV STA (14:36)
[2020-07-17] MEDS ORDERED: POTASSIUM CHLORIDE CRTAB 20 MEQ TABCR PO STA ×2 (14:36→17:45)
[2020-07-17] MEDS ORDERED: ACETAMINOPHEN 325 MG TAB PO PRN (14:36)
[2020-07-17] MEDS ORDERED: FUROSEMIDE 40 MG/4 ML VIAL IV STA (14:36)
[2020-07-17] MEDS ORDERED: CARBOHYDRATES FOR HYPOGLYCEMIA PO PRN (14:41)
[2020-07-17] MEDS ORDERED: GLUCAGON FOR INJ 1 MG VIAL SQ PRN (14:41)
[2020-07-17] MEDS ORDERED: GLUCOSE 10 TABS/TUBE PO PRN (14:41)
[2020-07-17] MEDS ORDERED: GLUCOSE 40% GEL 15 GM TUBE PO PRN (14:41)
[2020-07-17] MEDS ORDERED: DEXTROSE 50% 50 ML SYRINGE IV PRN (14:41)
[2020-07-17] MEDS ORDERED: Heparin IV Adult Wt-Based Standard WITH Bolus Protocol IV SCH (14:44)
[2020-07-17 14:46] LABS: D Dimer 1820 ug/L FEU (0-500)
--- NOTE | 2020-07-17 14:50 | History & Physical Report ---
Date of Service July 17, 2020 Assessment & Plan (1) Atrial flutter with rapid ventricular response: (2) Acute CHF: -Admit to telemetry -Patient presenting from home with reports of shortness of breath, increasing lower extremity edema, abdominal bloating x 1 month -Cardiology consulted from ED -EKG shows atrial flutter with RVR in the 130s w/ unchanged LBBB -CXR shows small bilateral pleural effusions consistent with CHF -proBNP 2200 -Received metoprolol 5 mg IV in the ED with minimal improvement in HR, will start Cardizem drip -Start heparin drip as well -Lasix 40 mg IV x1 now, then start Lasix 40 mg IV daily tomorrow -Daily weights, strict I's and O's, low Na+ diet -Resting echo -Serial cardiac enzymes -D-dimer elevated -checking CTA chest and BLE Dopplers -Mild hypokalemia and hypomagnesemia noted -replace, follow electrolytes -Check TSH -Needs outpatient sleep study to evaluate for JUDY (3) Diabetes mellitus, type 2: -Hgb A1c 9.6 04/2019 -Update Hgb A1c with a.m. labs -Pharmacy glycemic consult (4) Hypertension: -BP elevated on presentation, received IV metoprolol and starting Cardizem drip as above -Continue home dose amlodipine (5) DVT prophylaxis: -On IV heparin drip Admission and Anticipated Discharge Date Admission Date: July 17, 2020 History of Present Illness Chief Complaint: Shortness of Breath Primary Care Provider: Zulma Tripp DO 55-year-old female with PMH DM type II, HTN, and other problems as below who presents the ED for evaluation of shortness of breath. Patient reports that she has been feeling short of breath for the past 1 month. Reports shortness of breath with minimal exertion. She is needed to sleep sitting up in the chair because shortness of breath becomes worse whenever she lies flat. She also notes increasing lower extremity edema. She reports abdominal bloating that she felt like was secondary to GERD. Sometimes the abdominal bloating presses up into her chest. She denies any other chest discomfort, pain, pressure. She has had some occasional palpitations. No lightheadedness, dizziness, diaphoresis, syncopal events. Denies any other recent illnesses, fevers, chills. No abdominal pain, nausea, vomiting, diarrhea. She denies any urinary symptoms. In the ED, patient was found to be tachycardic in the 130s. EKG showed an unchanged LBBB. Labs show proBNP 2200. CXR shows small bilateral pleural effusions. Patient was given nitroglycerin 2 inch topical, metoprolol 5 mg IV with minimal improvement in HR. Allergies Allergy/AdvReac Type Severity Reaction Status Date / Time lisinopril Allergy Severe Anaphylaxis Verified 07/17/20 14:15 Home Medications Medication Instructions Recorded Confirmed Type atorvastatin 20 mg PO QAM 10/21/19 07/17/20 History metformin 1,000 mg PO BID 10/21/19 07/17/20 History Lantus U-100 Insulin 55 unit SUBCUT HS #0 ml 10/23/19 07/17/20 Rx omega 6-iso-fce-fish oil 1,000 mg 1 cap PO QAM 10/26/19 07/17/20 History (120 mg-180 mg) capsule amlodipine 5 mg PO QAM 11/21/19 07/17/20 History aspirin [Aspirin Low-Strength] 81 mg PO QAM 04/02/20 07/17/20 History cholecalciferol (vitamin D3) 25 mcg PO DAILY 07/17/20 07/17/20 History cyanocobalamin (vitamin B-12) 1,000 mcg PO DAILY 07/17/20 07/17/20 History omeprazole magnesium [Prilosec OTC] 20 mg PO DAILY 07/17/20 07/17/20 History Past Med/Surg History Medical History Diabetes mellitus, type 2 IDDM GERD (gastroesophageal reflux disease) History of nephrolithiasis Hyperlipidemia Hypertension Kidney stones Morbid obesity Spinal stenosis Vitamin D deficiency Surgical History History of section x2 History of cholecystectomy History of nephrolithotomy with removal of calculi History of tonsillectomy Hx of cystoscopy with stone extraction Status post cystoscopy with ureteral stent placement most recent [place]oscopy 11/07/19 [place] Family History Mother Pancreatic cancer Diabetes Bilateral kidney stones Sister Bilateral kidney stones Hypertension Father Heart disease Brother Bilateral kidney stones Other No family history of adverse response to anesthesia Social History Smoking Status: Never smoker Second Hand Exposure: No; Do You Dip or Chew Tobacco: No; Hx Alcohol Use: No Hx Substance Use: No Preferred Language: Moldovan Communication Ability: Effective Visual Impairment: No Limitations Voip Engineer Required: No Beliefs That Will Affect Care: None Current Living Situation: Family Other Information That Helps Us Care for You: No Feels Safe at Home: Yes Safety Concerns: Feels Safe At This Time Assistive Devices: None Review of Systems Review of Systems: ROS per HPI, all other systems reviewed and negative Physical Exam Constitutional: WD/WN, vitals as above + obese Eyes: PERRL, conjunctivae normal, anicteric sclerae ENMT: external ear and nose normal, oropharynx normal Respiratory: normal respiratory effort; no respiratory distress Auscultation: + diminished lung sounds (Bilateral bases) Cardiovascular: Rate/Rhythm: regular rhythm and + tachycardic Vessels: normal peripheral pulses Extremities: + edema (+2-3 edema BLE) Gastrointestinal (Abdomen): normal bowel sounds, soft, nontender, no hepatosplenomegaly Musculoskeletal: no cyanosis or clubbing, extremities motor strength 5/5 Skin: no rashes, warm and dry Neurologic: PERRL, EOMI, accommodation nl, no face palsy, no dysarthria Psychiatric: A+Ox3, euthymic affect Results & Data Results & Data ([facility]) Vital Signs (Past 12 Hours) Vital Signs Temp Pulse Resp BP Pulse Ox 07/17/20 14:33 93 H 22 07/17/20 14:31 36.8 C 129 H 21 149/102 H 97 07/17/20 13:35 133 H 161/101 H 07/17/20 13:31 132 H 161/101 H 98 07/17/20 13:30 133 H 22 99 07/17/20 13:20 133 H 99 07/17/20 13:10 134 H 167/116 H 99 07/17/20 13:00 134 H 98 07/17/20 12:50 135 H 99 07/17/20 12:40 135 H 100 07/17/20 12:30 134 H 97 07/17/20 12:20 135 H 90 07/17/20 12:19 135 H 07/17/20 11:45 36.8 C 137 H 24 165/86 H 94 Laboratory Results Short CBC 07/17/20 Range/Units 12:25 WBC 8.51 (4.8-10.8) K/uL Hgb 13.4 (12.0-16.0) g/dL Hct 40.2 (37-47) % Plt Count 233 (130-400) K/uL BMP 07/17/20 12:25 Sodium 139 Potassium 3.4 L Chloride 104 Carbon Dioxide 26 BUN 9 Creatinine 0.88 Glucose 279 H Calcium 8.5 Cardiac Enzymes 07/17/20 Range/Units 12:25 Troponin I < 0.015 (0-0.045) ng/ml Liver Function 07/17/20 Range/Units 12:25 Total Bilirubin 1.2 H (0.2-1) mg/dl AST 18 (15-37) U/L ALT 26 (12-78) U/L Alkaline Phosphatase 99 (45-117) U/L Albumin 3.3 L (3.4-5.0) gm/dl Diagnostic Findings CXR IMPRESSION: Small bilateral pleural effusions with interstitial thickening and mild bilateral opacities. The findings may reflect pulmonary edema or an infectious process. Radiographic follow-up is recommended. Code Status & VTE Plan VTE Prophylaxis Plan VTE Prophylaxis will be ordered: Yes Supervising Physician Co-Signing Physician Notes Patient is a 55-year-old female with history of diabetes mellitus, hypertension, morbid obesity and other medical problems presents with history of worsening shortness of breath, dyspnea on exertion, worsening lower extremity edema, orthopnea since 1 month duration. She also states having abdominal bloating which she attributes to GERD. She admits to having intermittent palpitations but denies any chest pain. Please review HPI for complete details of presentation. Was found to be in atrial flutter RVR while in ED. On exam patient is morbidly obese, no apparent distress, normocephalic atraumatic, lungs-normal breath sounds, minimal basal crackles, irregularly irregular rhythm, no murmur, tachycardia, 2+ bilateral lower extremity edema, abdomen soft, nontender, alert, awake, oriented, grossly no focal neurological deficits. Patient is admitted for management of atrial flutter RVR, acute CHF. Chest x- ray showed small bilateral pleural effusions and some opacities. Started on Cardizem drip, IV heparin, IV diuretics. Check resting echo, TSH, procalcitonin, Troponins. Replace potassium and check magnesium levels. Will consult cardiology. Will consider addition of antihypertensives if blood pressure remains uncontrolled. Left bundle branch block also noted on prior EKGs on [facility]. Monitor daily weights, I's and O's. I personally reviewed the record. Patient is interviewed and examined at bedside. Patient's care is coordinated with Josie Hua BASS FISHER. Please refer to the documentation above for details of patient's presentation and for discussion of other issues.
[2020-07-17] MEDS ORDERED: PHARMACY GLYCEMIC MGMT CONSULT SCH (14:53)
[2020-07-17] MEDS ORDERED: HEPARIN IV BOLUS 7,000 UNITS in SYRINGE 0 ML IV ONE (15:00)
[2020-07-17] MEDS: dilTIAZem HCL 125 MG in DEXTROSE 5% 100 ML IV SCH ×2 (15:11→22:30)
[2020-07-17] MEDS: HEPARIN SODIUM/DEXTROSE 25,000 UNITS/500 ML BAG IV SCH (15:12)
[2020-07-17] MEDS ORDERED: INSULIN GLARGINE SOLOSTAR 100 UNITS/ML 3 ML PEN SC ONE (15:15)
--- NOTE | 2020-07-17 15:20 | Electrocardiogram Report ---
Test Reason : Blood Pressure : / mmHG Vent. Rate : 135 BPM Atrial Rate : 135 BPM P-R Int : 120 ms QRS Dur : 162 ms QT Int : 344 ms P-R-T Axes : 000 -17 114 degrees QTc Int : 516 ms Poor data quality, interpretation may be adversely affected Sinus tachycardia Left bundle branch block Abnormal ECG When compared with ECG of 04-NOV-2019 13:32, T wave amplitude has decreased in Inferior leads Confirmed by Balta Bland ([id number]) on 07/17/2020 3:19:37 PM Referred By: Zulma Tripp Confirmed By:Balta Bland
[2020-07-17] MEDS: INSULIN ASPART 100 UNITS/ML 3 ML PEN SC SCH ×2 (15:30→19:38)
[2020-07-17 15:41] LABS: INR 1.2 (0.9-1.1); Partial Thromboplastin Ratio 0.9; Partial Thromboplastin Time 23.8 Seconds (21.0-31.0); Prothrombin Time 11.7 Seconds (9.0-12.0)
[2020-07-17] MEDS ORDERED: MAGNESIUM SULFATE / D5W 1 GM/100 ML BAG IV ONE ×2 (16:00→17:46)
--- NOTE | 2020-07-17 16:52 | Ultrasound Report ---
BILATERAL LOWER EXTREMITY VENOUS DOPPLER HISTORY: Lower extremity edema COMPARISON STUDY: None. FINDINGS: There is normal compressibility, flow, and augmentation within the bilateral lower extremit y deep venous systems. IMPRESSION: No DVT within the right or left lower extremity. ACT 112: Negative or not required by law. Electronically signed by: Johnathon Hood M.D. 07/17/2020 4:50 PM
[2020-07-17] MEDS ORDERED: ADENOSINE IV SOLN 3 MG/ML 2 ML VIAL IV ONE ×2 (17:09→17:15)
[2020-07-17] MEDS ORDERED: ADENOSINE IV SOLN 3 MG/ML 2 ML VIAL IV STA ×2 (17:12→17:39)
--- NOTE | 2020-07-17 17:45 | Cardiology Consultation ---
Date of Consultation July 17, 2020 Assessment & Plan (1) LBBB (left bundle branch block): The patient's previous EKG October 2019 reveals a normal QRS complex so the left bundle branch block is new. (2) Acute CHF: Continue diuretics with 40 mg of IV Lasix every 12 hours. The patient's potassium and magnesium are low and they will be supplemented. An echocardiogram is planned. (3) Atrial flutter with rapid ventricular response: The patient has a wide-complex tachycardia and I was concerned for ventricular tachycardia. After admission, the patient was given IV adenosine which revealed atrial flutter is the underlying rhythm. We will continue current treatment with Cardizem intravenously and I will add Lopressor 5 mg IV every 4 hours. (4) Diabetes mellitus, type 2: Diabetes will be cared for by the medicine service. History of Present Illness Attending Physician: Jp Swenson MD History of Present Illness This is a 55-year-old female obese, diabetic with no prior history of heart disease. Over the past few weeks she has been progressively short of breath with increasing lower extremity edema and orthopnea. She presented to the emergency department and was found to be tachycardic with a wide-complex consistent with a left bundle branch block. She was given IV Lasix and started on a diltiazem drip. She states she feels better especially after oxygen was started. She has had no chest pain. No dizziness or lightheadedness. Cardiac markers are negative. Pro natruretic peptide is elevated. Allergies Allergy/AdvReac Type Severity Reaction Status Date / Time lisinopril Allergy Severe Anaphylaxis Verified 07/17/20 14:15 Home Medications Medication Instructions Recorded Confirmed Type atorvastatin 20 mg PO QAM 10/21/19 07/17/20 History metformin 1,000 mg PO BID 10/21/19 07/17/20 History Lantus U-100 Insulin 55 unit SUBCUT HS #0 ml 10/23/19 07/17/20 Rx omega 5-six-twl-fish oil 1,000 mg 1 cap PO QAM 10/26/19 07/17/20 History (120 mg-180 mg) capsule amlodipine 5 mg PO QAM 11/21/19 07/17/20 History aspirin [Aspirin Low-Strength] 81 mg PO QAM 04/02/20 07/17/20 History cholecalciferol (vitamin D3) 25 mcg PO DAILY 07/17/20 07/17/20 History cyanocobalamin (vitamin B-12) 1,000 mcg PO DAILY 07/17/20 07/17/20 History omeprazole magnesium [Prilosec OTC] 20 mg PO DAILY 07/17/20 07/17/20 History Patient History Medical History Diabetes mellitus, type 2 IDDM GERD (gastroesophageal reflux disease) History of nephrolithiasis Hyperlipidemia Hypertension Kidney stones Morbid obesity Spinal stenosis Vitamin D deficiency Surgical History History of section x2 History of cholecystectomy History of nephrolithotomy with removal of calculi History of tonsillectomy Hx of cystoscopy with stone extraction Status post cystoscopy with ureteral stent placement most [place] 11[place]07/19 [place] Family History Mother Pancreatic cancer Diabetes Bilateral kidney stones Sister Bilateral kidney stones Hypertension Father Heart disease Brother Bilateral kidney stones Other No family history of adverse response to anesthesia Social History Smoking Status: Never smoker Second Hand Exposure: No; Do You Dip or Chew Tobacco: No; Hx Alcohol Use: No Hx Substance Use: No Preferred Language: Bahamian Communication Ability: Effective Visual Impairment: No Limitations Turbo Operator Required: No Beliefs That Will Affect Care: None Current Living Situation: Family Other Information That Helps Us Care for You: No Feels Safe at Home: Yes Safety Concerns: Feels Safe At This Time Assistive Devices: None Review of Systems Review of Systems: All systems reviewed & are unremarkable except as noted in HPI & below Nothing additional to add. Physical Exam Physical Exam: General: Morbidly obese Head: normocephalic, no masses, lesions, tenderness or abnormalities Eyes: conjunctiva are pink and non-injected, sclera clear Neck: supple, no adenopathy, no bruits, normal jugular venous pulse, no hepatojugular reflux Chest: normal shape and normal respiratory effort Lungs: Decreased breath sounds bilaterally Cardiac Exam: - regular rate & rhythm, no murmurs gallops or rubs - normal S1, normal S2 Pulses: 2(+) throughout Abdomen: abdomen soft, non-tender, no abnormal masses and no hepatosplenomegaly Musculoskeletal: no gait disturbance, no joint inflammation, no deforming arthritis Extremities: Edema to the knees bilaterally Neuro: grossly normal exam Results & Data ([facility]) Vital Signs (Past 12 Hours) Vital Signs Temp Pulse Resp BP Pulse Ox 07/17/20 16:00 131 H 29 H 97 07/17/20 15:42 131 H 34 H 120/94 96 07/17/20 14:49 36.9 C 07/17/20 14:33 93 H 22 07/17/20 14:31 36.8 C 129 H 21 149/102 H 97 07/17/20 13:35 133 H 161/101 H 07/17/20 13:31 132 H 161/101 H 98 07/17/20 13:30 133 H 22 99 07/17/20 13:20 133 H 99 07/17/20 13:10 134 H 167/116 H 99 07/17/20 13:00 134 H 98 07/17/20 12:50 135 H 99 07/17/20 12:40 135 H 100 07/17/20 12:30 134 H 97 07/17/20 12:20 135 H 90 07/17/20 12:19 135 H 07/17/20 11:45 36.8 C 137 H 24 165/86 H 94 Laboratory Results Laboratory Results - last 24 hr 07/17/20 07/17/20 07/17/20 12:25 12:25 12:25 WBC 8.51 RBC 4.60 Hgb 13.4 Hct 40.2 MCV 87.4 MCH 29.1 MCHC 33.3 RDW Std Deviation 42.6 RDW Coeff of Nancy 13.3 Plt Count 233 MPV 12.8 H Immature Gran % (Auto) 0.2 Neut % (Auto) 78.6 Lymph % (Auto) 14.0 [place] % (Auto) 5.9 Eos % (Auto) 0.7 Baso % (Auto) 0.6 Neut # (Auto) 6.69 H Lymph # (Auto) 1.19 L [place] # (Auto) 0.50 Eos # (Auto) 0.06 Baso # (Auto) 0.05 Immature Gran # (Auto) 0.02 PT INR APTT PTT Ratio D-Dimer Sodium 139 Potassium 3.4 L Chloride 104 Carbon Dioxide 26 Anion Gap 9.0 BUN 9 Creatinine 0.88 Est Cr Clr Drug Dosing 94.2 Est GFR ( Amer) 85.7 Est GFR (Non-Af Amer) 74.0 BUN/Creatinine Ratio 10.5 Glucose 279 H POC Glucose Calcium 8.5 Magnesium Total Bilirubin 1.2 H AST 18 ALT 26 Alkaline Phosphatase 99 Troponin I < 0.015 NT-Pro-B Natriuret Pep 2201 H Total Protein 7.4 Albumin 3.3 L Globulin 4.1 H Albumin/Globulin Ratio 0.8 L Lipase 86 TSH COVID-19 Eval Order CovFluRsv at [facility] SARS-CoV-2 (PCR) Influenza Type A (PCR) Influenza Type B (PCR) RSV (RT-PCR) 07/17/20 07/17/20 07/17/20 12:25 12:25 12:25 WBC RBC Hgb Hct MCV MCH MCHC RDW Std Deviation RDW Coeff of Nancy Plt Count MPV Immature Gran % (Auto) Neut % (Auto) Lymph % (Auto) [place] % (Auto) Eos % (Auto) Baso % (Auto) Neut # (Auto) Lymph # (Auto) [place] # (Auto) Eos # (Auto) Baso # (Auto) Immature Gran # (Auto) PT INR APTT PTT Ratio D-Dimer 1820 H* Sodium Potassium Chloride Carbon Dioxide Anion Gap BUN Creatinine Est Cr Clr Drug Dosing Est GFR ( Amer) Est GFR (Non-Af Amer) BUN/Creatinine Ratio Glucose POC Glucose Calcium Magnesium 1.7 L Total Bilirubin AST ALT Alkaline Phosphatase Troponin I NT-Pro-B Natriuret Pep Total Protein Albumin Globulin Albumin/Globulin Ratio Lipase TSH COVID-19 Eval Order SARS-CoV-2 (PCR) NEGATIVE Influenza Type A (PCR) Negative Influenza Type B (PCR) Negative RSV (RT-PCR) Negative 07/17/20 07/17/20 07/17/20 12:25 13:26 14:46 WBC RBC Hgb Hct MCV MCH MCHC RDW Std Deviation RDW Coeff of Nancy Plt Count MPV Immature Gran % (Auto) Neut % (Auto) Lymph % (Auto) [place] % (Auto) Eos % (Auto) Baso % (Auto) Neut # (Auto) Lymph # (Auto) [place] # (Auto) Eos # (Auto) Baso # (Auto) Immature Gran # (Auto) PT 11.7 INR 1.2 H APTT 23.8 PTT Ratio 0.9 D-Dimer Sodium Potassium Chloride Carbon Dioxide Anion Gap BUN Creatinine Est Cr Clr Drug Dosing Est GFR ( Amer) Est GFR (Non-Af Amer) BUN/Creatinine Ratio Glucose POC Glucose 241 H Calcium Magnesium Total Bilirubin AST ALT Alkaline Phosphatase Troponin I NT-Pro-B Natriuret Pep Total Protein Albumin Globulin Albumin/Globulin Ratio Lipase TSH 1.100 COVID-19 Eval Order SARS-CoV-2 (PCR) Influenza Type A (PCR) Influenza Type B (PCR) RSV (RT-PCR) Diagnostic Findings EKG reveals a new left bundle branch block. Medications Administered Current Inpatient Medications Acetaminophen (Acetaminophen 325 Mg Tab) 650 mg PO Q4H PRN PRN Reason: Pain or Fever Stop: 08/16/20 14:35 Amlodipine Besylate (Amlodipine Besylate 5 Mg Tab) 5 mg PO QAM [facility] Stop: 08/17/20 08:59 Aspirin (Aspirin 81 Mg Ectab) 81 mg PO QAM [facility] Stop: 08/17/20 08:59 Atorvastatin Calcium (Atorvastatin 20 Mg Tab) 20 mg PO QAM [facility] Stop: 08/17/20 08:59 Cyanocobalamin (Cyanocobalamin 500 Mcg Tablet (Vitamin B-12)) 1,000 mcg PO DAILY [facility] Stop: 08/17/20 08:59 Dextrose (Dextrose 50% 50 Ml Syringe) 25 - 50 ml IV UD PRN; Protocol PRN Reason: Hypoglycemia Protocol Stop: 08/16/20 14:40 Glucagon (Glucagon For Inj 1 Mg Vial) 1 mg SQ UD PRN; Protocol PRN Reason: Hypoglycemia Protocol Stop: 08/16/20 14:40 Glucose (Glucose 10 Tabs/Tube) 4 - 8 tabs PO UD PRN; Protocol PRN Reason: Hypoglycemia Protocol Stop: 08/16/20 14:40 Glucose (Glucose 40% Gel 15 Gm Tube) 15 - 30 gm PO UD PRN; Protocol PRN Reason: Hypoglycemia Protocol Stop: 08/16/20 14:40 Diltiazem HCl 125 mg/ Dextrose 125 mls @ 15 mls/hr IV .[id number] JUAN; Protocol Stop: 08/16/20 14:59 Last Titration: 07/17/20 17:15 Dose: 15 mg/hr, 15 mls/hr Documented by: Heparin Sodium/Dextrose (Heparin Sodium/Dextrose) 25,000 units in 500 mls @ 30 mls/hr IV .[id number] [facility]; Protocol Stop: 08/16/20 14:59 Last Admin: 07/17/20 15:12 Dose: 1,500 units/hr, 30 mls/hr Documented by: Magnesium Sulfate/Dextrose (Magnesium Sulfate / D5w) 1 gm in 100 mls @ 50 mls/hr IV ONE ONE Stop: 07/17/20 17:59 Last Admin: 07/17/20 15:58 Dose: 50 mls/hr Documented by: Furosemide 40 mg/ Syringe 4 mls @ 4 mls/min IV BID JUAN Stop: 08/16/20 20:59 Magnesium Sulfate/Dextrose (Magnesium Sulfate / D5w) 1 gm in 100 mls @ 50 mls/hr IV ONE ONE Stop: 07/17/20 19:45 Insulin Aspart (Insulin Aspart 100 Units/Ml 3 Ml Pen) 0 units SC ACHS [facility]; Protocol Stop: 08/16/20 16:29 Last Admin: 07/17/20 15:30 Dose: 17 units Documented by: Insulin Aspart (Insulin Aspart 100 Units/Ml 3 Ml Pen) 0 units SC TODAY@0000,0400 [facility]; Protocol Stop: 07/18/20 04:01 Metoprolol Tartrate (Metoprolol Tartrate 1 Mg/Ml Vial) 5 mg IV Q4 [facility] Stop: 08/16/20 19:59 Miscellaneous (Carbohydrates For Hypoglycemia ) 15 - 30 gm PO UD PRN PRN Reason: Hypoglycemia Protocol Stop: 08/16/20 14:40 Miscellaneous Information (Pharmacy Glycemic Mgmt Consult) 1 ea N/A UD [facility]; Protocol Stop: 08/16/20 14:52 Pantoprazole Sodium (Pantoprazole 40 Mg Tab) 40 mg PO DAILY [facility] Stop: 08/17/20 08:59 Potassium Chloride (Potassium Chloride Crtab 20 Meq Tabcr) 20 meq PO BID [facility] Stop: 08/16/20 20:59 Vitamin D (Cholecalciferol 1,000 Units 25 Mcg Tab) 1,000 units PO DAILY [facility] Stop: 08/17/20 08:59
[2020-07-17] MEDS ORDERED: OPTIRAY 320 125ml IV ONE (17:59)
--- NOTE | 2020-07-17 18:58 | CT Scan Report ---
CHEST CTA for PULMONARY ARTERIES CT DOSE: 645.11 mGy.cm HISTORY: Shortness of breath. TECHNIQUE: Multiaxial CT images of the chest were performed following the intravenous administration of contrast to evaluate the pulmonary arteries. Maximal intensity projection images were also obtaine d. A dose lowering technique was utilized adhering to the principles of ALARA. COMPARISON STUDY: None. FINDINGS: Retrograde opacification of contrast into the hepatic veins. Otherwise, the visualized live r and spleen are unremarkable. Normal esophagus. A few coarse calcifications seen within the heteroge neous thyroid gland. No significant mediastinal or hilar lymphadenopathy. No pericardial effusions. M oderate right and small left pleural effusions. The heart is mildly enlarged. No suspicious lytic or blastic osseous lesions. The central airways are patent. There is respiratory motion artifact. There appears a mild interlobular septal thickening consistent with pulmonary edema. Patchy airspace opacit ies within the lower lobes posteriorly. This favors compressive atelectasis from the pleural effusion s. A pneumonia could also have a similar appearance but is considered less likely. There is a 1.2 cm lower pole nodule within the left lower lobe. This does not meet CT criteria for further follow-up at this time. Normal caliber thoracic aorta with no evidence for dissection. The majority of the subseg mental pulmonary arteries are nondiagnostic due to the respiratory motion artifact. The remaining pul monary arteries show no filling defects to suggest pulmonary embolus. IMPRESSION: 1. Suboptimal evaluation due to the respiratory motion artifact. 2. No evidence for pulmonary embolus with limitations as described above. 3. Moderate right and small left pleural effusions. 4. Mild interlobular septal thickening. This favors mild interstitial pulmonary edema. 5. Mild cardiomegaly. 6. Patchy densities within the bilateral lower lobes posteriorly favor compressive atelectasis from t he pleural effusions. A pneumonia could also have a similar appearance but is considered less likely. ACT 112: Negative or not required by law. Electronically signed by: Johnathon Hood M.D. 07/17/2020 6:57 PM
[2020-07-17] MEDS: FUROSEMIDE 40 MG in SYRINGE 0 ML IV SCH (19:30)
[2020-07-17] MEDS: METOPROLOL TARTRATE 1 MG/ML VIAL IV SCH (19:31)
[2020-07-17 22:47] LABS: Partial Thromboplastin Ratio 1.3; Partial Thromboplastin Time 33.1 Seconds (21.0-31.0)
[2020-07-17] MEDS ORDERED: HEPARIN SODIUM IV ONE (23:11)
[2020-07-17] MEDS ORDERED: HEPARIN IV BOLUS 3,000 UNITS in SYRINGE 0 ML IV ONE (23:30)
[2020-07-18] MEDS: INSULIN ASPART 100 UNITS/ML 3 ML PEN SC SCH ×7 (00:01→20:06)
[2020-07-18] MEDS: METOPROLOL TARTRATE 1 MG/ML VIAL IV SCH ×6 (04:18→19:53)
[2020-07-18 04:51] LABS: Hematocrit (blood only) 36.9 % (37-47); Hemoglobin 12.4 g/dL (12.0-16.0); Mean Corpuscular Hemoglobin 29.5 pg (25-34); Mean Corpuscular Hgb Conc 33.6 g/dL (32-36); Mean Corpuscular Volume 87.6 fL (80-100); Mean Platelet Volume 13.3 fL (7.4-10.4); Platelet Count 217 K/uL (130-400); RDW Coefficient of Variation 13.6 % (11.5-14.5); RDW Standard Deviation 43.6 fL (36.4-46.3); Red Blood Count 4.21 M/uL (4.2-5.4); White Blood Count 8.05 K/uL (4.8-10.8)
[2020-07-18 05:10] LABS: BUN Creatinine Ratio 13.1 (10-20); Calcium 8.2 mg/dl (8.5-10.1); Est GFR (African American) 86.9; Magnesium 2.2 mg/dl (1.8-2.4); Potassium 3.7 mmol/L (3.5-5.1)
[2020-07-18 05:11] LABS: Partial Thromboplastin Ratio 1.8
[2020-07-18 05:15] LABS: Partial Thromboplastin Time 46.9 Seconds (21.0-31.0)
[2020-07-18 06:30] LABS: Estimated Average Glucose 232 mg/dl; Hemoglobin A1C 9.7 % (4.5-5.6)
[2020-07-18] MEDS: HEPARIN SODIUM/DEXTROSE 25,000 UNITS/500 ML BAG IV SCH ×2 (07:31→23:16)
[2020-07-18] MEDS: FUROSEMIDE 40 MG in SYRINGE 0 ML IV SCH ×2 (07:32→19:51)
[2020-07-18] MEDS: dilTIAZem HCL 125 MG in DEXTROSE 5% 100 ML IV SCH ×2 (07:32→16:39)
[2020-07-18] MEDS: POTASSIUM CHLORIDE CRTAB 20 MEQ TABCR PO SCH ×2 (07:32→16:40)
[2020-07-18] MEDS: PANTOprazole 40 MG TAB PO SCH (07:33)
[2020-07-18] MEDS: CHOLECALCIFEROL 1,000 UNITS 25 MCG TAB PO SCH (07:33)
[2020-07-18] MEDS: CYANOCOBALAMIN 500 MCG TABLET (VITAMIN B-12) PO SCH (07:33)
[2020-07-18] MEDS: ASPIRIN 81 MG ECTAB PO SCH (07:33)
[2020-07-18] MEDS: ATORVASTATIN 20 MG TAB PO SCH (07:33)
[2020-07-18] MEDS ORDERED: amLODIPine BESYLATE 5 MG TAB PO SCH (09:00)
[2020-07-18] MEDS ORDERED: INSULIN GLARGINE SOLOSTAR 100 UNITS/ML 3 ML PEN SC ONE (09:00)
--- NOTE | 2020-07-18 09:39 | Cardiology Progress Note ---
Date of Service July 18, 2020 Assessment & Plan (1) LBBB (left bundle branch block): The patient's previous EKG October 2019 reveals a normal QRS complex so the left bundle branch block is new. (2) Acute CHF: Continue diuretics with 40 mg of IV Lasix every 12 hours. Echocardiogram is pending and I will review. I am going to discontinue the patient's amlodipine for better blood pressure. Her other medications should remain the same for now. Unfortunately she has a severe reaction to lisinopril. I am going to explore this reaction list for in more depth. If it was due to angioedema then HERACLIO/ARB would be contraindicated however, if it was due to other reasons then she could be put on an ARB which was held for heart failure. (3) Atrial flutter with rapid ventricular response: The patient is volume overloaded. She still is in heart failure. I think we need to diurese her more and then consider if we are going to cardiovert her this admission if she does not revert back into sinus rhythm on her own. Since his atrial flutter, I doubt she will return to sinus spontaneously. (4) Diabetes mellitus, type 2: Diabetes will be cared for by the medicine service. Admission and Anticipated Discharge Date Admission Date: July 17, 2020 Subjective The patient feels improved and less short of breath. She did have a large diuresis through the night. Review of Systems Review of Systems: All systems reviewed & are unremarkable except as noted in Subjective Physical Exam Physical Exam: General: no acute distress and stated age Head: normocephalic, no masses, lesions, tenderness or abnormalities Eyes: conjunctiva are pink and non-injected, sclera clear Neck: supple, no adenopathy, no bruits, normal jugular venous pulse, no hepatojugular reflux Chest: normal shape and normal respiratory effort Lungs: clear to auscultation and percussion Cardiac Exam: - regular rate & rhythm, no murmurs gallops or rubs - normal S1, normal S2 Pulses: 2(+) throughout Abdomen: abdomen soft, non-tender, no abnormal masses and no hepatosplenomegaly Musculoskeletal: no gait disturbance, no joint inflammation, no deforming arthritis Extremities: Bilateral lower extremity edema. Neuro: grossly normal exam Results & Data ([facility]) Vital Signs (Past 12 Hours) Vital Signs Temp Pulse Resp BP Pulse Ox 07/18/20 08:00 36.6 C 84 23 93 07/18/20 07:38 96 H 31 H 100/60 94 07/18/20 07:35 103 H 100/60 07/18/20 06:00 96 H 22 94 07/18/20 05:07 86 29 H 136/72 94 07/18/20 04:18 102 H 131/51 L 07/18/20 04:00 37.0 C 103 H 25 H 94 07/18/20 03:08 96 H 21 131/51 L 94 07/18/20 02:00 91 H 21 94 07/18/20 01:07 103 H 20 96/78 L 93 07/18/20 00:00 113 H 29 H 129/91 94 07/17/20 23:59 122 H 07/17/20 23:06 36.8 C 120 H 27 H 129/91 94 Laboratory Results Laboratory Results - last 24 hr 07/17/20 07/17/20 07/17/20 12:25 12:25 12:25 WBC 8.51 RBC 4.60 Hgb 13.4 Hct 40.2 MCV 87.4 MCH 29.1 MCHC 33.3 RDW Std Deviation 42.6 RDW Coeff of Nancy 13.3 Plt Count 233 MPV 12.8 H Immature Gran % (Auto) 0.2 Neut % (Auto) 78.6 Lymph % (Auto) 14.0 [place] % (Auto) 5.9 Eos % (Auto) 0.7 Baso % (Auto) 0.6 Neut # (Auto) 6.69 H Lymph # (Auto) 1.19 L [place] # (Auto) 0.50 Eos # (Auto) 0.06 Baso # (Auto) 0.05 Immature Gran # (Auto) 0.02 PT INR APTT PTT Ratio D-Dimer Sodium 139 Potassium 3.4 L Chloride 104 Carbon Dioxide 26 Anion Gap 9.0 BUN 9 Creatinine 0.88 Est Cr Clr Drug Dosing 94.2 Est GFR ( Amer) 85.7 Est GFR (Non-Af Amer) 74.0 BUN/Creatinine Ratio 10.5 Glucose 279 H POC Glucose Estimat Average Glucose Hemoglobin A1c Calcium 8.5 Magnesium Total Bilirubin 1.2 H AST 18 ALT 26 Alkaline Phosphatase 99 Troponin I < 0.015 NT-Pro-B Natriuret Pep 2201 H Total Protein 7.4 Albumin 3.3 L Globulin 4.1 H Albumin/Globulin Ratio 0.8 L Lipase 86 Procalcitonin TSH Nasal Screen MRSA (PCR) COVID-19 Eval Order [facility]FluRsv at [facility] SARS-CoV-2 (PCR) Influenza Type A (PCR) Influenza Type B (PCR) RSV (RT-PCR) 07/17/20 07/17/20 07/17/20 12:25 12:25 12:25 WBC RBC Hgb Hct MCV MCH MCHC RDW Std Deviation RDW Coeff of Nancy Plt Count MPV Immature Gran % (Auto) Neut % (Auto) Lymph % (Auto) [place] % (Auto) Eos % (Auto) Baso % (Auto) Neut # (Auto) Lymph # (Auto) [place] # (Auto) Eos # (Auto) Baso # (Auto) Immature Gran # (Auto) PT INR APTT PTT Ratio D-Dimer 1820 H* Sodium Potassium Chloride Carbon Dioxide Anion Gap BUN Creatinine Est Cr Clr Drug Dosing Est GFR ( Amer) Est GFR (Non-Af Amer) BUN/Creatinine Ratio Glucose POC Glucose Estimat Average Glucose Hemoglobin A1c Calcium Magnesium 1.7 L Total Bilirubin AST ALT Alkaline Phosphatase Troponin I NT-Pro-B Natriuret Pep Total Protein Albumin Globulin Albumin/Globulin Ratio Lipase Procalcitonin TSH Nasal Screen MRSA (PCR) COVID-19 Eval Order SARS-CoV-2 (PCR) NEGATIVE Influenza Type A (PCR) Negative Influenza Type B (PCR) Negative RSV (RT-PCR) Negative 07/17/20 07/17/20 07/17/20 12:25 13:26 14:46 WBC RBC Hgb Hct MCV MCH MCHC RDW Std Deviation RDW Coeff of Nancy Plt Count MPV Immature Gran % (Auto) Neut % (Auto) Lymph % (Auto) [place] % (Auto) Eos % (Auto) Baso % (Auto) Neut # (Auto) Lymph # (Auto) [place] # (Auto) Eos # (Auto) Baso # (Auto) Immature Gran # (Auto) PT 11.7 INR 1.2 H APTT 23.8 PTT Ratio 0.9 D-Dimer Sodium Potassium Chloride Carbon Dioxide Anion Gap BUN Creatinine Est Cr Clr Drug Dosing Est GFR ( Amer) Est GFR (Non-Af Amer) BUN/Creatinine Ratio Glucose POC Glucose 241 H Estimat Average Glucose Hemoglobin A1c Calcium Magnesium Total Bilirubin AST ALT Alkaline Phosphatase Troponin I NT-Pro-B Natriuret Pep Total Protein Albumin Globulin Albumin/Globulin Ratio Lipase Procalcitonin TSH 1.100 Nasal Screen MRSA (PCR) COVID-19 Eval Order SARS-CoV-2 (PCR) Influenza Type A (PCR) Influenza Type B (PCR) RSV (RT-PCR) 07/17/20 07/17/20 07/17/20 18:33 18:33 19:38 WBC RBC Hgb Hct MCV MCH MCHC RDW Std Deviation RDW Coeff of Nancy Plt Count MPV Immature Gran % (Auto) Neut % (Auto) Lymph % (Auto) [place] % (Auto) Eos % (Auto) Baso % (Auto) Neut # (Auto) Lymph # (Auto) [place] # (Auto) Eos # (Auto) Baso # (Auto) Immature Gran # (Auto) PT INR APTT PTT Ratio D-Dimer Sodium Potassium Chloride Carbon Dioxide Anion Gap BUN Creatinine Est Cr Clr Drug Dosing Est GFR ( Amer) Est GFR (Non-Af Amer) BUN/Creatinine Ratio Glucose POC Glucose 137 H Estimat Average Glucose Hemoglobin A1c Calcium Magnesium Total Bilirubin AST ALT Alkaline Phosphatase Troponin I < 0.015 NT-Pro-B Natriuret Pep Total Protein Albumin Globulin Albumin/Globulin Ratio Lipase Procalcitonin 0.08 TSH Nasal Screen MRSA (PCR) COVID-19 Eval Order SARS-CoV-2 (PCR) Influenza Type A (PCR) Influenza Type B (PCR) RSV (RT-PCR) 07/17/20 07/17/20 07/17/20 19:55 22:15 22:22 WBC RBC Hgb Hct MCV MCH MCHC RDW Std Deviation RDW Coeff of Nancy Plt Count MPV Immature Gran % (Auto) Neut % (Auto) Lymph % (Auto) [place] % (Auto) Eos % (Auto) Baso % (Auto) Neut # (Auto) Lymph # (Auto) [place] # (Auto) Eos # (Auto) Baso # (Auto) Immature Gran # (Auto) PT INR APTT 33.1 H PTT Ratio 1.3 D-Dimer Sodium Potassium Chloride Carbon Dioxide Anion Gap BUN Creatinine Est Cr Clr Drug Dosing Est GFR ( Amer) Est GFR (Non-Af Amer) BUN/Creatinine Ratio Glucose POC Glucose Estimat Average Glucose Hemoglobin A1c Calcium Magnesium Total Bilirubin AST ALT Alkaline Phosphatase Troponin I < 0.015 NT-Pro-B Natriuret Pep Total Protein Albumin Globulin Albumin/Globulin Ratio Lipase Procalcitonin TSH Nasal Screen MRSA (PCR) Negative COVID-19 Eval Order SARS-CoV-2 (PCR) Influenza Type A (PCR) Influenza Type B (PCR) RSV (RT-PCR) 07/17/20 07/18/20 07/18/20 23:59 04:16 04:26 WBC 8.05 RBC 4.21 Hgb 12.4 Hct 36.9 L MCV 87.6 MCH 29.5 MCHC 33.6 RDW Std Deviation 43.6 RDW Coeff of Nancy 13.6 Plt Count 217 MPV 13.3 H Immature Gran % (Auto) Neut % (Auto) Lymph % (Auto) [place] % (Auto) Eos % (Auto) Baso % (Auto) Neut # (Auto) Lymph # (Auto) [place] # (Auto) Eos # (Auto) Baso # (Auto) Immature Gran # (Auto) PT INR APTT PTT Ratio D-Dimer Sodium Potassium Chloride Carbon Dioxide Anion Gap BUN Creatinine Est Cr Clr Drug Dosing Est GFR ( Amer) Est GFR (Non-Af Amer) BUN/Creatinine Ratio Glucose POC Glucose 178 H 178 H Estimat Average Glucose Hemoglobin A1c Calcium Magnesium Total Bilirubin AST ALT Alkaline Phosphatase Troponin I NT-Pro-B Natriuret Pep Total Protein Albumin Globulin Albumin/Globulin Ratio Lipase Procalcitonin TSH Nasal Screen MRSA (PCR) COVID-19 Eval Order SARS-CoV-2 (PCR) Influenza Type A (PCR) Influenza Type B (PCR) RSV (RT-PCR) 07/18/20 07/18/20 07/18/20 04:26 04:26 04:26 WBC RBC Hgb Hct MCV MCH MCHC RDW Std Deviation RDW Coeff of Nancy Plt Count MPV Immature Gran % (Auto) Neut % (Auto) Lymph % (Auto) [place] % (Auto) Eos % (Auto) Baso % (Auto) Neut # (Auto) Lymph # (Auto) [place] # (Auto) Eos # (Auto) Baso # (Auto) Immature Gran # (Auto) PT INR APTT 46.9 H* PTT Ratio 1.8 D-Dimer Sodium 141 Potassium 3.7 Chloride 106 Carbon Dioxide 31 Anion Gap 4.0 BUN 11 Creatinine 0.87 Est Cr Clr Drug Dosing 101.0 Est GFR ( Amer) 86.9 Est GFR (Non-Af Amer) 75.0 BUN/Creatinine Ratio 13.1 Glucose 201 H POC Glucose Estimat Average Glucose 232 Hemoglobin A1c 9.7 H Calcium 8.2 L Magnesium 2.2 Total Bilirubin AST ALT Alkaline Phosphatase Troponin I NT-Pro-B Natriuret Pep Total Protein Albumin Globulin Albumin/Globulin Ratio Lipase Procalcitonin TSH Nasal Screen MRSA (PCR) COVID-19 Eval Order SARS-CoV-2 (PCR) Influenza Type A (PCR) Influenza Type B (PCR) RSV (RT-PCR) 07/18/20 07:26 WBC RBC Hgb Hct MCV MCH MCHC RDW Std Deviation RDW Coeff of Nancy Plt Count MPV Immature Gran % (Auto) Neut % (Auto) Lymph % (Auto) [place] % (Auto) Eos % (Auto) Baso % (Auto) Neut # (Auto) Lymph # (Auto) [place] # (Auto) Eos # (Auto) Baso # (Auto) Immature Gran # (Auto) PT INR APTT PTT Ratio D-Dimer Sodium Potassium Chloride Carbon Dioxide Anion Gap BUN Creatinine Est Cr Clr Drug Dosing Est GFR ( Amer) Est GFR (Non-Af Amer) BUN/Creatinine Ratio Glucose POC Glucose 178 H Estimat Average Glucose Hemoglobin A1c Calcium Magnesium Total Bilirubin AST ALT Alkaline Phosphatase Troponin I NT-Pro-B Natriuret Pep Total Protein Albumin Globulin Albumin/Globulin Ratio Lipase Procalcitonin TSH Nasal Screen MRSA (PCR) COVID-19 Eval Order SARS-CoV-2 (PCR) Influenza Type A (PCR) Influenza Type B (PCR) RSV (RT-PCR) Diagnostic Findings Patient remains in atrial flutter on telemetry but heart rates have improved. Medications Administered Current Inpatient Medications Acetaminophen (Acetaminophen 325 Mg Tab) 650 mg PO Q4H PRN PRN Reason: Pain or Fever Stop: 08/16/20 14:35 Aspirin (Aspirin 81 Mg Ectab) 81 mg PO QAM [facility] Stop: 08/17/20 08:59 Last Admin: 07/18/20 07:33 Dose: 81 mg Documented by: Atorvastatin Calcium (Atorvastatin 20 Mg Tab) 20 mg PO QAM [facility] Stop: 08/17/20 08:59 Last Admin: 07/18/20 07:33 Dose: 20 mg Documented by: Cyanocobalamin (Cyanocobalamin 500 Mcg Tablet (Vitamin B-12)) 1,000 mcg PO DAILY [facility] Stop: 08/17/20 08:59 Last Admin: 07/18/20 07:33 Dose: 1,000 mcg Documented by: Dextrose (Dextrose 50% 50 Ml Syringe) 25 - 50 ml IV UD PRN; Protocol PRN Reason: Hypoglycemia Protocol Stop: 08/16/20 14:40 Glucagon (Glucagon For Inj 1 Mg Vial) 1 mg SQ UD PRN; Protocol PRN Reason: Hypoglycemia Protocol Stop: 08/16/20 14:40 Glucose (Glucose 10 Tabs/Tube) 4 - 8 tabs PO UD PRN; Protocol PRN Reason: Hypoglycemia Protocol Stop: 08/16/20 14:40 Glucose (Glucose 40% Gel 15 Gm Tube) 15 - 30 gm PO UD PRN; Protocol PRN Reason: Hypoglycemia Protocol Stop: 08/16/20 14:40 Diltiazem HCl 125 mg/ Dextrose 125 mls @ 15 mls/hr IV .[id number] [facility]; Protocol Stop: 08/16/20 14:59 Last Admin: 07/18/20 07:32 Dose: 15 mg/hr, 15 mls/hr Documented by: Heparin Sodium/Dextrose (Heparin Sodium/Dextrose) 25,000 units in 500 mls @ 33 mls/hr IV .[id number] [facility]; Protocol Stop: 08/16/20 14:59 Last Admin: 07/18/20 07:31 Dose: 1,650 units/hr, 33 mls/hr Documented by: Furosemide 40 mg/ Syringe 4 mls @ 4 mls/min IV BID [facility] Stop: 08/16/20 20:59 Last Admin: 07/18/20 07:32 Dose: 4 mls/min Documented by: Insulin Aspart (Insulin Aspart 100 Units/Ml 3 Ml Pen) 0 units SC ACHS [facility]; Protocol Stop: 08/16/20 16:29 Last Admin: 07/18/20 07:27 Dose: 11 units Documented by: Insulin Glargine (Insulin Glargine Solostar 100 Units/Ml 3 Ml Pen) 50 units SC [facility] Stop: 08/17/20 20:59 Metoprolol Tartrate (Metoprolol Tartrate 1 Mg/Ml Vial) 5 mg IV Q4 [facility] Stop: 08/16/20 19:59 Last Admin: 07/18/20 07:35 Dose: 5 mg Documented by: Miscellaneous (Carbohydrates For Hypoglycemia ) 15 - 30 gm PO UD PRN PRN Reason: Hypoglycemia Protocol Stop: 08/16/20 14:40 Miscellaneous Information (Pharmacy Glycemic Mgmt Consult) 1 ea N/A UD [facility]; Protocol Stop: 08/16/20 14:52 Pantoprazole Sodium (Pantoprazole 40 Mg Tab) 40 mg PO DAILY [facility] Stop: 08/17/20 08:59 Last Admin: 07/18/20 07:33 Dose: 40 mg Documented by: Potassium Chloride (Potassium Chloride Crtab 20 Meq Tabcr) 20 meq PO BID17 [facility] Stop: 08/17/20 08:59 Last Admin: 07/18/20 07:32 Dose: 20 meq Documented by: Vitamin D (Cholecalciferol 1,000 Units 25 Mcg Tab) 1,000 units PO DAILY [facility] Stop: 08/17/20 08:59 Last Admin: 07/18/20 07:33 Dose: 1,000 units Documented by: (1) Acute CHF Heart failure type: unspecified Qualified Code(s): I50.9 - Heart failure, unspecified
--- NOTE | 2020-07-18 10:31 | Pharmacy Report ---
Pharmacy Glycemic Short Note 2 - Date of Service July 18, 2020 - Glycemic Short BSG Results (Last 24 hours): 07/17/20 07/17/20 07/17/20 12:25 14:46 19:38 Glucose 279 H POC Glucose 241 H 137 H 07/17/20 07/18/20 07/18/20 23:59 04:16 04:26 Glucose 201 H POC Glucose 178 H 178 H 07/18/20 07:26 Glucose POC Glucose 178 H OUTPATIENT ANTIDIABETIC REGIMEN: * Lantus 55 units Q HS * Metformin 1gm PO BID * A1c = 9.7% 07/18/20 ASSESSMENT: * Poorly controlled type 2 diabetic admitted for ADHF, a fib w/ RVR * BSG as high as 279 on admission, patient initiated on basal / bolus regimen using both out-pt regimen and weight-based estimates * Fasting BSG 178 this AM w/ 50 units basal on board and after receiving 6 units correctional insulin overnight. Will give additional Lantus this AM due to fasting elevation. * Current Novolog CF and CR are reasonable starting points given observed responses thus far - will follow post-prandial BSG pattern PLAN FOR INPATIENT GLYCEMIC CONTROL: * Hold outpatient oral diabetes medications (metformin) * Basal insulin * Lantus 50 units SQ HS, give additional 10 units this AM * Bolus insulin * NovoLog per scale ACHS or Q6hrs while NPO * Goal Range: Low 110 mg/dL - High 140 mg/dL * Correction Factor: 15 mg/dL/unit * Nutritional / Prandial insulin per carb ratio of 1 unit per 5 grams CHO consumed PLAN FOR DISCHARGE: * Given A1c > 9%, would recommend consideration of the additional of either SGLT2i (with potential heart failure benefits i.e. empagliflozin or canagliflozin) or GLP1-agonist (with proven CVD benefits i.e. liraglutide or semaglutide) on discharge. Insurance coverage may need to be verified prior to prescribing. These would be used in addition to current out-pt regimen of metformin + Lantus.
--- NOTE | 2020-07-18 14:39 | Electrocardiogram Report ---
Test Reason : Blood Pressure : / mmHG Vent. Rate : 095 BPM Atrial Rate : 256 BPM P-R Int : 000 ms QRS Dur : 152 ms QT Int : 382 ms P-R-T Axes : 000 -33 162 degrees QTc Int : 480 ms Poor data quality, interpretation may be adversely affected Atrial flutter with variable A-V block Left axis deviation Left bundle branch block Abnormal ECG When compared with ECG of 17-JUL-2020 12:16, Atrial flutter has replaced Sinus rhythm T wave inversion more evident in Lateral leads Confirmed by Balta Bland ([id number]) on 07/18/2020 2:39:08 PM Referred By: Zulma Tripp Confirmed By:Balta Bland
--- NOTE | 2020-07-18 15:10 | Hospitalist Progress Note ---
Date of Service July 18, 2020 Assessment & Plan (1) Atrial flutter with rapid ventricular response: presented with Aflutter RVR HR @130's on Iv Cardizem gtt on IV heparin gtt cardiology following appreciate input /may need cardioverted after full anticoagulation and compensation of CHF ( Acute CHF with severe systolic dysfunction) Decompensated CHF with severe systolic dysfunction EF 15% possible due to arrhythmia /Aflutter , will need further work up for cardiac ischemia , CAD ( new LBBB) cardiology following on IV Lasix 40 mg BID Diabetes mellitus, type 2: (2) Diabetes mellitus, type 2: -Hgb A1c 9.6 04/2019 -Update Hgb A1c with a.m. labs -Pharmacy glycemic consult (3) DVT prophylaxis: -On IV heparin drip Disposition ; cont monitor in PCU /telemetry Admission and Anticipated Discharge Date Admission Date: July 17, 2020 Subjective follow up visit for rapid afib RVR /acute diastolic CHF pt reports of episodes of palpitation on and off feels anxiety /panic attacks with rapid heart beat says she tries to calm herself but feels " everything out of control " shortness of breath and orthopnea has improved on 2 L o2 via nasal canula Review of Systems Review of Systems: All systems reviewed & are unremarkable except as noted in Subjective Physical Exam Constitutional: WD/WN, vitals as above Eyes: PERRL, conjunctivae normal, anicteric sclerae ENMT: external ear and nose normal, oropharynx normal Neck: trachea midline, no thyromegaly Respiratory: Auscultation: + diminished lung sounds and + rales Cardiovascular: RRR, no murmur, no edema Gastrointestinal (Abdomen): normal bowel sounds, soft, nontender, no hepatosplenomegaly Musculoskeletal: no cyanosis or clubbing, extremities motor strength 5/5 Skin: no rashes, warm and dry Neurologic: PERRL, EOMI, accommodation nl, no face palsy, no dysarthria Psychiatric: A+Ox3, euthymic affect Results & Data Results & Data ([facility]) Vital Signs (Past 12 Hours) Vital Signs Temp Pulse Pulse Resp BP BP Pulse Ox 07/18/20 13:07 85 26 H 116/75 94 07/18/20 11:44 103 H 130/63 07/18/20 11:43 36.4 C L 71 20 130/63 97 07/18/20 09:07 85 24 112/70 96 07/18/20 08:00 36.6 C 84 23 93 07/18/20 07:38 96 H 31 H 100/60 94 07/18/20 07:35 103 H 100/60 07/18/20 06:00 96 H 22 94 07/18/20 05:07 86 29 H 136/72 94 07/18/20 04:18 102 H 131/51 L 07/18/20 04:00 37.0 C 103 H 25 H 94
[2020-07-18] MEDS: LORazepam 0.5 MG TAB PO PRN (19:50)
[2020-07-18] MEDS: INSULIN GLARGINE SOLOSTAR 100 UNITS/ML 3 ML PEN SC SCH (20:03)
[2020-07-18] MEDS ORDERED: ALUMINUM/MAGNESIUM/SIMETH (MAALOX MAX) 30 ML UDC PO STA (21:02)
[2020-07-19] MEDS: METOPROLOL TARTRATE 1 MG/ML VIAL IV SCH ×6 (00:22→19:55)
[2020-07-19] MEDS: ONDANSETRON INJ 2 MG/ML 2 ML VIAL IV PRN (00:22)
[2020-07-19] MEDS: dilTIAZem HCL 125 MG in DEXTROSE 5% 100 ML IV SCH ×3 (02:00→14:44)
[2020-07-19] MEDS ORDERED: MoRPHine SULFATE 2 MG/ML CARP IV STA (05:57)
[2020-07-19 08:15] LABS: Partial Thromboplastin Ratio 1.5; Partial Thromboplastin Time 38.7 Seconds (21.0-31.0)
[2020-07-19] MEDS: POTASSIUM CHLORIDE CRTAB 20 MEQ TABCR PO SCH ×2 (08:37→17:03)
[2020-07-19] MEDS: CHOLECALCIFEROL 1,000 UNITS 25 MCG TAB PO SCH (08:37)
[2020-07-19] MEDS: CYANOCOBALAMIN 500 MCG TABLET (VITAMIN B-12) PO SCH (08:37)
[2020-07-19] MEDS: PANTOprazole 40 MG TAB PO SCH (08:37)
[2020-07-19] MEDS: FUROSEMIDE 40 MG in SYRINGE 0 ML IV SCH ×2 (08:37→22:23)
[2020-07-19] MEDS: ATORVASTATIN 20 MG TAB PO SCH (08:37)
[2020-07-19] MEDS: ASPIRIN 81 MG ECTAB PO SCH (08:37)
[2020-07-19] MEDS: INSULIN ASPART 100 UNITS/ML 3 ML PEN SC SCH ×4 (08:38→22:16)
--- NOTE | 2020-07-19 09:54 | Cardiology Progress Note ---
Date of Service July 19, 2020 Assessment & Plan (1) LBBB (left bundle branch block): The patient's previous EKG October 2019 reveals a normal QRS complex so the left bundle branch block is new. (2) Acute CHF: The patient remains significantly volume overloaded. Her BMP is pending for this morning. For now I would continue the IV Lasix but we may have to add a thiazide diuretic or Aldactone. I will wait for her labs to return. She list a severe allergy lisinopril. I spoke at length with the patient and apparently she had been on lisinopril for about 10 years without incident. She had not eaten a tangerine in a long time and decided to buy some. She ate 1 tangerine and her mouth started to swell so she went to the emergency department. She was told it was from the lisinopril. This patient has a severe dilated cardiomyopathy with very poor LV function. I believe that she really needs to be on an HERACLIO/ARB. Therefore I will start her on losartan 25 mg daily and titrate as necessary while she is in the hospital. (3) Atrial flutter with rapid ventricular response: So far she has good rate control but remains in atrial flutter. I do not plan cardioversion until we improve her volume status. She has severe systolic dysfunction and I do not believe the Cardizem is a good drug for her. I am going to put that on hold. We will continue with metoprolol for rate control. If her heart rates go up again then I am going to start digoxin. (4) Diabetes mellitus, type 2: Diabetes will be cared for by the medicine service. Admission and Anticipated Discharge Date Admission Date: July 17, 2020 Subjective The patient is sitting in a chair. She had an uneventful night. No new cardiac complaints. Review of Systems Review of Systems: All systems reviewed & are unremarkable except as noted in Subjective Physical Exam Physical Exam: General: no acute distress and stated age Head: normocephalic, no masses, lesions, tenderness or abnormalities Eyes: conjunctiva are pink and non-injected, sclera clear Neck: supple, no adenopathy, no bruits, normal jugular venous pulse, no hepatojugular reflux Chest: normal shape and normal respiratory effort Lungs: clear to auscultation and percussion Cardiac Exam: - irregular rate & rhythm, no murmurs gallops or rubs - normal S1, normal S2 Pulses: 2(+) throughout Abdomen: abdomen soft, non-tender, no abnormal masses and no hepatosplenomegaly Musculoskeletal: no gait disturbance, no joint inflammation, no deforming arthritis Extremities: Edema of the lower extremities. Neuro: grossly normal exam Results & Data ([facility]) Vital Signs (Past 12 Hours) Vital Signs Temp Pulse Resp BP Pulse Ox 07/19/20 08:39 60 118/80 07/19/20 05:27 61 20 100/72 90 07/19/20 04:36 36.7 C 83 31 H 111/82 07/19/20 04:34 83 111/62 07/19/20 00:22 88 115/79 07/19/20 00:20 36.8 C 86 27 H 115/79 93 Laboratory Results Laboratory Results - last 24 hr 07/18/20 07/18/20 07/18/20 11:28 16:34 20:02 APTT PTT Ratio POC Glucose 170 H 176 H 182 H 07/19/20 07/19/20 07:14 07:44 APTT 38.7 H PTT Ratio 1.5 POC Glucose 272 H Diagnostic Findings Telemetry indicates continued atrial flutter with good heart rate control. Medications Administered Current Inpatient Medications Acetaminophen (Acetaminophen 325 Mg Tab) 650 mg PO Q4H PRN PRN Reason: Pain or Fever Stop: 08/16/20 14:35 Last Admin: 07/19/20 06:09 Dose: 650 mg Documented by: Aspirin (Aspirin 81 Mg Ectab) 81 mg PO QAM [facility] Stop: 08/17/20 08:59 Last Admin: 07/19/20 08:37 Dose: 81 mg Documented by: Atorvastatin Calcium (Atorvastatin 20 Mg Tab) 20 mg PO QAM [facility] Stop: 08/17/20 08:59 Last Admin: 07/19/20 08:37 Dose: 20 mg Documented by: Cyanocobalamin (Cyanocobalamin 500 Mcg Tablet (Vitamin B-12)) 1,000 mcg PO DAILY [facility] Stop: 08/17/20 08:59 Last Admin: 07/19/20 08:37 Dose: 1,000 mcg Documented by: Dextrose (Dextrose 50% 50 Ml Syringe) 25 - 50 ml IV UD PRN; Protocol PRN Reason: Hypoglycemia Protocol Stop: 08/16/20 14:40 Glucagon (Glucagon For Inj 1 Mg Vial) 1 mg SQ UD PRN; Protocol PRN Reason: Hypoglycemia Protocol Stop: 08/16/20 14:40 Glucose (Glucose 10 Tabs/Tube) 4 - 8 tabs PO UD PRN; Protocol PRN Reason: Hypoglycemia Protocol Stop: 08/16/20 14:40 Glucose (Glucose 40% Gel 15 Gm Tube) 15 - 30 gm PO UD PRN; Protocol PRN Reason: Hypoglycemia Protocol Stop: 08/16/20 14:40 Diltiazem HCl 125 mg/ Dextrose 125 mls @ 15 mls/hr IV .[id number] [facility]; Protocol Stop: 08/16/20 14:59 Last Admin: 07/19/20 08:38 Dose: 15 mg/hr, 15 mls/hr Documented by: Heparin Sodium/Dextrose (Heparin Sodium/Dextrose) 25,000 units in 500 mls @ 35 mls/hr IV .[id number] [facility]; Protocol Stop: 08/16/20 14:59 Last Titration: 07/19/20 08:58 Dose: 1,750 units/hr, 35 mls/hr Documented by: Furosemide 40 mg/ Syringe 4 mls @ 4 mls/min IV BID [facility] Stop: 08/16/20 20:59 Last Admin: 07/19/20 08:37 Dose: 4 mls/min Documented by: Insulin Aspart (Insulin Aspart 100 Units/Ml 3 Ml Pen) 0 units SC ACHS [facility]; Protocol Stop: 08/16/20 16:29 Last Admin: 07/19/20 08:38 Dose: 20 units Documented by: Insulin Glargine (Insulin Glargine Solostar 100 Units/Ml 3 Ml Pen) 50 units SC HS [facility] Stop: 08/17/20 20:59 Last Admin: 07/18/20 20:03 Dose: 50 units Documented by: Lorazepam (Lorazepam 0.5 Mg Tab) 0.5 mg PO TID PRN PRN Reason: Anxiety Stop: 08/17/20 16:29 Last Admin: 07/18/20 19:50 Dose: 0.5 mg Documented by: Losartan Potassium (Losartan Potassium 25 Mg Tab) 25 mg PO QAM [facility] Stop: 08/18/20 09:44 Metoprolol Tartrate (Metoprolol Tartrate 1 Mg/Ml Vial) 5 mg IV Q4 [facility] Stop: 08/16/20 19:59 Last Admin: 07/19/20 08:39 Dose: 5 mg Documented by: Miscellaneous (Carbohydrates For Hypoglycemia ) 15 - 30 gm PO UD PRN PRN Reason: Hypoglycemia Protocol Stop: 08/16/20 14:40 Miscellaneous Information (Pharmacy Glycemic Mgmt Consult) 1 ea N/A [facility] [place]; Protocol Stop: 08/16/20 14:52 Ondansetron HCl (Ondansetron Inj 2 Mg/Ml 2 Ml Vial) 4 mg IV Q6H PRN PRN Reason: Nausea And Vomiting Stop: 08/18/20 00:05 Last Admin: 07/19/20 00:22 Dose: 4 mg Documented by: Pantoprazole Sodium (Pantoprazole 40 Mg Tab) 40 mg PO DAILY [facility] Stop: 08/17/20 08:59 Last Admin: 07/19/20 08:37 Dose: 40 mg Documented by: Potassium Chloride (Potassium Chloride Crtab 20 Meq Tabcr) 20 meq PO BID17 [facility] Stop: 08/17/20 08:59 Last Admin: 07/19/20 08:37 Dose: 20 meq Documented by: Vitamin D (Cholecalciferol 1,000 Units 25 Mcg Tab) 1,000 units PO DAILY [facility] Stop: 08/17/20 08:59 Last Admin: 07/19/20 08:37 Dose: 1,000 units Documented by: (1) Acute CHF Heart failure type: unspecified Qualified Code(s): I50.9 - Heart failure, unspecified
--- NOTE | 2020-07-19 10:13 | Pharmacy Report ---
Pharmacy Glycemic Short Note 2 - Date of Service July 19, 2020 - Glycemic Short BSG Results (Last 24 hours): 07/18/20 07/18/20 07/18/20 11:28 16:34 20:02 POC Glucose 170 H 176 H 182 H 07/19/20 07:44 POC Glucose 272 H OUTPATIENT ANTIDIABETIC REGIMEN: * Lantus 55 units Q HS * Metformin 1gm PO BID * A1c = 9.7% 07/18/20 ASSESSMENT: 07/19 * 96 units SQ insulin given over last 24 hrs * BSGs fairly well controlled yesterday * Fasting AM BSG 272 this AM, however pt had food at bedside this AM and likely ate prior to BSG check. Will not adjust basal today as a result. * Post-prandial BSGs well controlled yesterday - no change will be made to Novolog CR or CF 07/18 * Poorly controlled type 2 diabetic admitted for ADHF, a fib w/ RVR * BSG as high as 279 on admission, patient initiated on basal / bolus regimen using both out-pt regimen and weight-based estimates * Fasting BSG 178 this AM w/ 50 units basal on board and after receiving 6 units correctional insulin overnight. Will give additional Lantus this AM due to fasting elevation. * Current Novolog CF and CR are reasonable starting points given observed responses thus far - will follow post-prandial BSG pattern PLAN FOR INPATIENT GLYCEMIC CONTROL: * Hold outpatient oral diabetes medications (metformin) * Basal insulin - no change * Lantus 50 units SQ HS, give additional 10 units this AM * Bolus insulin - no change * NovoLog per scale ACHS or Q6hrs while NPO * Goal Range: Low 110 mg/dL - High 140 mg/dL * Correction Factor: 15 mg/dL/unit * Nutritional / Prandial insulin per carb ratio of 1 unit per 5 grams CHO consumed PLAN FOR DISCHARGE: * Given A1c > 9%, would recommend consideration of the additional of either SGLT2i (with potential heart failure benefits i.e. empagliflozin or canagliflozin) or GLP1-agonist (with proven CVD benefits i.e. liraglutide or semaglutide) on discharge. Insurance coverage may need to be verified prior to prescribing. These would be used in addition to current out-pt regimen of metformin + Lantus.
--- NOTE | 2020-07-19 10:55 | Electrocardiogram Report ---
Test Reason : Blood Pressure : / mmHG Vent. Rate : 064 BPM Atrial Rate : 242 BPM P-R Int : 000 ms QRS Dur : 152 ms QT Int : 482 ms P-R-T Axes : 039 -11 125 degrees QTc Int : 497 ms Probably Atrial flutter with variable A-V block Left bundle branch block Abnormal ECG When compared with ECG of 18-JUL-2020 04:43, Vent. rate has decreased BY 31 BPM T wave inversion now evident in Anterior leads Confirmed by Niko Monahan ([id number]) on 07/19/2020 10:54:58 AM Referred By: Zulma Tripp Confirmed By:Chris Monahan
[2020-07-19 11:51] LABS: Calcium 8.7 mg/dl (8.5-10.1); Est GFR (African American) 47.3; Est GFR (Non-African American) 40.8; Potassium 3.9 mmol/L (3.5-5.1)
[2020-07-19] MEDS: LOSARTAN POTASSIUM 25 MG TAB PO SCH (12:17)
--- NOTE | 2020-07-19 13:03 | Hospitalist Progress Note ---
Date of Service July 19, 2020 Assessment & Plan (1) Atrial flutter with rapid ventricular response: presented with Aflutter RVR HR @130's was on IV Cardizem gtt ECHO shows severe cardiomyopathy with EF 15-20% IV Cardizem gtt d/paul due to high risk for cardiac decompensation with low EF on IV Lopressor scheduled dose cardiology following appreciate input Acute Decompensated CHF with severe systolic dysfunction EF 15% possible due to arrhythmia /Aflutter , will need further work up for cardiac ischemia / new LBBB at later date after acute illness is resolved added ARB -Cozaar 25 mg daily cardiology following on IV Lasix 40 mg BID Acute renal Failure : Cr elevated 1.44 ( baseline 0.8 ) possibly due to diuresis will D/w cardiology may need to hold evening dose of IV Lasix repeat BMP In am , avoid NSAID's (2) Diabetes mellitus, type 2: poorly controlled -Hgb A1c 9.6 04/2019 -Update Hgb A1c 9.7 -Pharmacy glycemic consult appreciated -basal lantus dose increased will need to be followed with diabetic MTM clinic on dc (3) DVT prophylaxis: -On IV heparin drip Disposition ; cont monitor in PCU /telemetry Admission and Anticipated Discharge Date Admission Date: July 17, 2020 Subjective Follow up visit for Aflutter /Decompensated CHF with severe systolic dysfunction : pt was sitting on chair says she did had a restless night, could not fall to sleep tried low dose Lorazepam ( 0.5 mg ) with no benefit feels her Shortness of breath is the same or worse requiring 2 L 02 ( was not on home o2 ) , feels tired and wiped out does not have any cough , no fever or chills Review of Systems Review of Systems: All systems reviewed & are unremarkable except as noted in Subjective Physical Exam Constitutional: WD/WN, vitals as above Eyes: PERRL, conjunctivae normal, anicteric sclerae ENMT: external ear and nose normal, oropharynx normal Neck: trachea midline, no thyromegaly Respiratory: Auscultation: + diminished lung sounds and + rales Cardiovascular: Rate/Rhythm: + irregularly irregular Extremities: + edema (+ 3 edema pitting bilat ) Gastrointestinal (Abdomen): normal bowel sounds, soft, nontender, no hepatosplenomegaly Musculoskeletal: no cyanosis or clubbing, extremities motor strength 5/5 Skin: no rashes, warm and dry Neurologic: PERRL, EOMI, accommodation nl, no face palsy, no dysarthria Psychiatric: A+Ox3, euthymic affect Results & Data Results & Data ([facility]) Vital Signs (Past 12 Hours) Vital Signs Temp Pulse Pulse Resp BP BP Pulse Ox 07/19/20 12:34 82 95/74 L 07/19/20 12:12 82 18 95/74 L 07/19/20 08:39 60 118/80 07/19/20 08:00 36.5 C 60 64 20 118/80 95 07/19/20 05:27 61 20 100/72 90 07/19/20 04:36 36.7 C 83 31 H 111/82 07/19/20 04:34 83 111/62
[2020-07-19 14:21] LABS: Appearance Urine Turbid (Clear); Bacteria Urine Automated Negative (Negative); Blood Urine 3+ (Negative); Color Urine Dark Yellow; Glucose Urine UA Negative (Negative); Ketones Urine Negative (Negative); Leukocyte Esterase Urine 2+ (Negative); Nitrite Urine Negative (Negative); Protein Urine 2+ (Negative); Specific Gravity Urine 1.023 (1.000-1.030); Urobilinogen Urine Negative (Negative); WBC Urine Automated >30 /hpf (0-5)
[2020-07-19 14:25] LABS: Bilirubin Urine 1+ (Negative)
[2020-07-19] MEDS: HEPARIN SODIUM/DEXTROSE 25,000 UNITS/500 ML BAG IV SCH ×3 (14:42→19:17)
[2020-07-19 15:12] LABS: RBC Urine Automated >30 /hpf (0-4)
[2020-07-19 15:42] LABS: Partial Thromboplastin Ratio 1.8
[2020-07-19 15:53] LABS: Partial Thromboplastin Time 48.6 Seconds (21.0-31.0)
[2020-07-19] MEDS: INSULIN GLARGINE SOLOSTAR 100 UNITS/ML 3 ML PEN SC SCH (22:15)
[2020-07-20] MEDS: METOPROLOL TARTRATE 1 MG/ML VIAL IV SCH ×3 (00:07→10:45)
[2020-07-20] MEDS ORDERED: DIGOXIN 250 MCG in SYRINGE 9 ML IV STA (01:18)
[2020-07-20] MEDS: HEPARIN SODIUM/DEXTROSE 25,000 UNITS/500 ML BAG IV SCH ×2 (06:36→21:23)
[2020-07-20 07:06] LABS: Partial Thromboplastin Ratio 1.8
[2020-07-20 07:15] LABS: Partial Thromboplastin Time 48.5 Seconds (21.0-31.0)
[2020-07-20 07:16] LABS: BUN Creatinine Ratio 18.1 (10-20); Calcium 8.7 mg/dl (8.5-10.1); Creatinine Clr Calc Pharmacy 89.1 ml/min; Est GFR (African American) 74.4; Est GFR (Non-African American) 64.2; Potassium 3.6 mmol/L (3.5-5.1)
--- NOTE | 2020-07-20 07:21 | Hospitalist Progress Note ---
Date of Service July 20, 2020 Assessment & Plan Admission and Anticipated Discharge Date Admission Date: July 17, 2020 Subjective Ordered iv digoxin 250mcg for persistent tachycardia Results & Data Results & Data ([facility]) Vital Signs (Past 12 Hours) Vital Signs Temp Pulse Pulse Resp BP BP Pulse Ox 07/20/20 07:15 36.5 C 107 H 20 106/83 95 07/20/20 04:00 36.5 C 126 H 16 101/73 96 07/20/20 03:51 126 H 101/73 07/20/20 01:41 126 H 07/20/20 00:07 126 H 100/80 07/19/20 23:59 126 H 07/19/20 23:42 36.4 C L 126 H 20 100/80 98 07/19/20 22:20 123 H 07/19/20 20:05 36.6 C 124 H 20 102/77 97 07/19/20 19:55 124 H 102/77
[2020-07-20] MEDS ORDERED: METOPROLOL TARTRATE 1 MG/ML VIAL IV PRN (08:00)
[2020-07-20] MEDS: INSULIN ASPART 100 UNITS/ML 3 ML PEN SC SCH ×4 (08:01→21:21)
[2020-07-20] MEDS ORDERED: DIGOXIN 0.25 MG TAB PO ONE (08:02)
[2020-07-20] MEDS: CYANOCOBALAMIN 500 MCG TABLET (VITAMIN B-12) PO SCH (08:03)
[2020-07-20] MEDS: LOSARTAN POTASSIUM 25 MG TAB PO SCH (08:03)
[2020-07-20] MEDS: ASPIRIN 81 MG ECTAB PO SCH (08:03)
[2020-07-20] MEDS: FUROSEMIDE 40 MG in SYRINGE 0 ML IV SCH ×2 (08:03→21:12)
[2020-07-20] MEDS: POTASSIUM CHLORIDE CRTAB 20 MEQ TABCR PO SCH ×2 (08:04→17:59)
[2020-07-20] MEDS: ATORVASTATIN 20 MG TAB PO SCH (08:04)
[2020-07-20] MEDS: CHOLECALCIFEROL 1,000 UNITS 25 MCG TAB PO SCH (08:04)
[2020-07-20] MEDS: PANTOprazole 40 MG TAB PO SCH (08:04)
[2020-07-20] MEDS: METOPROLOL TARTRATE 50 MG TAB PO SCH ×2 (08:33→21:55)
--- NOTE | 2020-07-20 10:37 | Pharmacy Report ---
Pharmacy Glycemic Short Note 2 - Date of Service July 20, 2020 - Glycemic Short BSG Results (Last 24 hours): 07/19/20 07/19/20 07/19/20 11:03 12:05 16:31 Glucose 215 H POC Glucose 172 H 155 H 07/19/20 07/20/20 07/20/20 20:41 06:20 07:26 Glucose 97 POC Glucose 166 H 108 H OUTPATIENT ANTIDIABETIC REGIMEN: * Lantus 55 units Q HS * Metformin 1gm PO BID * A1c = 9.7% 07/18/20 ASSESSMENT: 07/20 * 85 units SQ given over last 24 hrs * BSGs well controlled yesterday * Fasting AM BSG 108 this AM with 50 units basal on board. Given decreasing fasting AM BSG trend on current Lantus dose, will reduce dose moving forward as BSG may continue to fall as we approach steady-state on current dose. * Post-prandial BSGs well controlled w/ current Novolog CR and CF - no change 07/19 * 96 units SQ given over last 24 hrs * BSGs fairly well controlled yesterday * Fasting AM BSG 272 this AM, however pt had food at bedside this AM and likely ate prior to BSG check. Will not adjust basal today as a result. * Post-prandial BSGs well controlled yesterday - no change will be made to Novolog CR or CF 07/18 * Poorly controlled type 2 diabetic admitted for ADHF, a fib w/ RVR * BSG as high as 279 on admission, patient initiated on basal / bolus regimen using both out-pt regimen and weight-based estimates * Fasting BSG 178 this AM w/ 50 units basal on board and after receiving 6 units correctional insulin overnight. Will give additional Lantus this AM due to fasting elevation. * Current Novolog CF and CR are reasonable starting points given observed responses thus far - will follow post-prandial BSG pattern PLAN FOR INPATIENT GLYCEMIC CONTROL: * Hold outpatient oral diabetes medications (metformin) * Basal insulin - decrease * Lantus 42 units SQ HS * Bolus insulin - no change * NovoLog per scale ACHS or Q6hrs while NPO * Goal Range: Low 110 mg/dL - High 140 mg/dL * Correction Factor: 15 mg/dL/unit * Nutritional / Prandial insulin per carb ratio of 1 unit per 5 grams CHO consumed PLAN FOR DISCHARGE: * Given A1c > 9%, would recommend consideration of the additional of either SGLT2i (with potential heart failure benefits i.e. empagliflozin or canagliflozin) or GLP1-agonist (with proven CVD benefits i.e. liraglutide or semaglutide) on discharge. Insurance coverage may need to be verified prior to prescribing. These would be used in addition to current out-pt regimen of metformin + Lantus.
--- NOTE | 2020-07-20 11:12 | Cardiology Progress Note ---
Date of Service July 20, 2020 Assessment & Plan (1) LBBB (left bundle branch block): The patient's previous EKG October 2019 reveals a normal QRS complex so the left bundle branch block is new. (2) Acute CHF: The patient is tolerating losartan and I will increase the dose to 25 mg twice daily. She is in a negative fluid balance and her weight is going down as well as her edema. We are making slow progress. (3) Atrial flutter with rapid ventricular response: I added digoxin this morning to her medical regimen. Prior to discharge I believe she should undergo a RODGER cardioversion. (4) Diabetes mellitus, type 2: Diabetes will be cared for by the medicine service. Admission and Anticipated Discharge Date Admission Date: July 17, 2020 Subjective The patient had an uneventful night. She is feeling improved. Review of Systems Review of Systems: All systems reviewed & are unremarkable except as noted in Subjective Physical Exam Physical Exam: General: no acute distress and stated age Head: normocephalic, no masses, lesions, tenderness or abnormalities Eyes: conjunctiva are pink and non-injected, sclera clear Neck: supple, no adenopathy, no bruits, normal jugular venous pulse, no hepatojugular reflux Chest: normal shape and normal respiratory effort Lungs: clear to auscultation and percussion Cardiac Exam: - irregular rate & rhythm, no murmurs gallops or rubs - normal S1, normal S2 Pulses: 2(+) throughout Abdomen: abdomen soft, non-tender, no abnormal masses and no hepatosplenomegaly Musculoskeletal: no gait disturbance, no joint inflammation, no deforming arthritis Extremities: Edema of the lower extremities which has improved. Neuro: grossly normal exam Results & Data ([facility]) Vital Signs (Past 12 Hours) Vital Signs Temp Pulse Pulse Resp BP BP Pulse Ox 07/20/20 08:33 104 H 07/20/20 07:15 36.5 C 107 H 20 106/83 95 07/20/20 04:00 36.5 C 126 H 16 101/73 96 07/20/20 03:51 126 H 101/73 07/20/20 01:41 126 H 07/20/20 00:07 126 H 100/80 07/19/20 23:59 126 H 07/19/20 23:42 36.4 C L 126 H 20 100/80 98 Laboratory Results Laboratory Results - last 24 hr 07/19/20 07/19/20 07/19/20 11:03 12:05 13:45 APTT PTT Ratio Sodium 136 Potassium 3.9 Chloride 103 Carbon Dioxide 28 Anion Gap 5.0 BUN 23 H D Creatinine 1.44 H D Est Cr Clr Drug Dosing 61.0 Est GFR ( Amer) 47.3 Est GFR (Non-Af Amer) 40.8 BUN/Creatinine Ratio 16.0 Glucose 215 H POC Glucose 172 H Calcium 8.7 Urine Color Dark Yellow Urine Appearance Turbid A Urine pH 5.0 Ur Specific [place] 1.023 Urine Protein 2+ H Urine Glucose (UA) Negative Urine Ketones Negative Urine Blood 3+ H Urine Nitrite Negative Urine Bilirubin 1+ H Urine Urobilinogen Negative Ur Leukocyte Esterase 2+ H Urine WBC (Auto) >30 H Urine RBC (Auto) >30 H U Hyaline Cast (Auto) 1-5 U Epithel Cells (Auto) 10-20 H Urine Bacteria (Auto) Negative 07/19/20 07/19/20 07/19/20 14:52 16:31 20:41 APTT 48.6 H* PTT Ratio 1.8 Sodium Potassium Chloride Carbon Dioxide Anion Gap BUN Creatinine Est Cr Clr Drug Dosing Est GFR ( Amer) Est GFR (Non-Af Amer) BUN/Creatinine Ratio Glucose POC Glucose 155 H 166 H Calcium Urine Color Urine Appearance Urine pH Ur Specific [place] Urine Protein Urine Glucose (UA) Urine Ketones Urine Blood Urine Nitrite Urine Bilirubin Urine Urobilinogen Ur Leukocyte Esterase Urine WBC (Auto) Urine RBC (Auto) U Hyaline Cast (Auto) U Epithel Cells (Auto) Urine Bacteria (Auto) 07/20/20 07/20/20 07/20/20 06:20 06:20 07:26 APTT 48.5 H* PTT Ratio 1.8 Sodium 138 Potassium 3.6 Chloride 103 Carbon Dioxide 32 Anion Gap 3.0 BUN 18 Creatinine 0.99 D Est Cr Clr Drug Dosing 89.1 Est GFR ( Amer) 74.4 Est GFR (Non-Af Amer) 64.2 BUN/Creatinine Ratio 18.1 Glucose 97 POC Glucose 108 H Calcium 8.7 Urine Color Urine Appearance Urine pH Ur Specific [place] Urine Protein Urine Glucose (UA) Urine Ketones Urine Blood Urine Nitrite Urine Bilirubin Urine Urobilinogen Ur Leukocyte Esterase Urine WBC (Auto) Urine RBC (Auto) U Hyaline Cast (Auto) U Epithel Cells (Auto) Urine Bacteria (Auto) Diagnostic Findings Heart rates with atrial flutter or fibrillation continue to remain high. Medications Administered Current Inpatient Medications Acetaminophen (Acetaminophen 325 Mg Tab) 650 mg PO Q4H PRN PRN Reason: Pain or Fever Stop: 08/16/20 14:35 Last Admin: 07/19/20 06:09 Dose: 650 mg Documented by: Aspirin (Aspirin 81 Mg Ectab) 81 mg PO QAM [facility] Stop: 08/17/20 08:59 Last Admin: 07/20/20 08:03 Dose: 81 mg Documented by: Atorvastatin Calcium (Atorvastatin 20 Mg Tab) 20 mg PO QAM [facility] Stop: 08/17/20 08:59 Last Admin: 07/20/20 08:04 Dose: 20 mg Documented by: Cyanocobalamin (Cyanocobalamin 500 Mcg Tablet (Vitamin B-12)) 1,000 mcg PO DAILY [facility] Stop: 08/17/20 08:59 Last Admin: 07/20/20 08:03 Dose: 1,000 mcg Documented by: Dextrose (Dextrose 50% 50 Ml Syringe) 25 - 50 ml IV UD PRN; Protocol PRN Reason: Hypoglycemia Protocol Stop: 08/16/20 14:40 Digoxin (Digoxin 0.25 Mg Tab) 0.25 mg PO DAILY@1600 [facility] Stop: 08/19/20 15:59 Glucagon (Glucagon For Inj 1 Mg Vial) 1 mg SQ UD PRN; Protocol PRN Reason: Hypoglycemia Protocol Stop: 08/16/20 14:40 Glucose (Glucose 10 Tabs/Tube) 4 - 8 tabs PO UD PRN; Protocol PRN Reason: Hypoglycemia Protocol Stop: 08/16/20 14:40 Glucose (Glucose 40% Gel 15 Gm Tube) 15 - 30 gm PO UD PRN; Protocol PRN Reason: Hypoglycemia Protocol Stop: 08/16/20 14:40 Heparin Sodium/Dextrose (Heparin Sodium/Dextrose) 25,000 units in 500 mls @ 35 mls/hr IV .[id number] [facility]; Protocol Stop: 08/16/20 14:59 Last Titration: 07/20/20 07:20 Dose: 1,750 units/hr, 35 mls/hr Documented by: Furosemide 40 mg/ Syringe 4 mls @ 4 mls/min IV BID [facility] Stop: 08/16/20 20:59 Last Admin: 07/20/20 08:03 Dose: 4 mls/min Documented by: Insulin Aspart (Insulin Aspart 100 Units/Ml 3 Ml Pen) 0 units SC ACHS [facility]; Protocol Stop: 08/16/20 16:29 Last Admin: 07/20/20 08:01 Dose: 7 units Documented by: Insulin Glargine (Insulin Glargine Solostar 100 Units/Ml 3 Ml Pen) 42 units SC HS [facility] Stop: 08/19/20 20:59 Lorazepam (Lorazepam 0.5 Mg Tab) 0.5 mg PO TID PRN PRN Reason: Anxiety Stop: 08/17/20 16:29 Last Admin: 07/18/20 19:50 Dose: 0.5 mg Documented by: Losartan Potassium (Losartan Potassium 25 Mg Tab) 25 mg PO BID [facility] Stop: 08/19/20 20:59 Metoprolol Tartrate (Metoprolol Tartrate 50 Mg Tab) 50 mg PO BID [facility] Stop: 08/19/20 08:59 Last Admin: 07/20/20 08:33 Dose: 50 mg Documented by: Metoprolol Tartrate (Metoprolol Tartrate 1 Mg/Ml Vial) 5 mg IV Q4H PRN PRN Reason: HR greater than 120 Stop: 08/19/20 07:59 Miscellaneous (Carbohydrates For Hypoglycemia ) 15 - 30 gm PO UD PRN PRN Reason: Hypoglycemia Protocol Stop: 08/16/20 14:40 Miscellaneous Information (Pharmacy Glycemic Mgmt Consult) 1 ea N/A UD [facility]; Protocol Stop: 08/16/20 14:52 Ondansetron HCl (Ondansetron Inj 2 Mg/Ml 2 Ml Vial) 4 mg IV Q6H PRN PRN Reason: Nausea And Vomiting Stop: 08/18/20 00:05 Last Admin: 07/19/20 00:22 Dose: 4 mg Documented by: Pantoprazole Sodium (Pantoprazole 40 Mg Tab) 40 mg PO DAILY [facility] Stop: 08/17/20 08:59 Last Admin: 07/20/20 08:04 Dose: 40 mg Documented by: Potassium Chloride (Potassium Chloride Crtab 20 Meq Tabcr) 20 meq PO BID17 [facility] Stop: 08/17/20 08:59 Last Admin: 07/20/20 08:04 Dose: 20 meq Documented by: Vitamin D (Cholecalciferol 1,000 Units 25 Mcg Tab) 1,000 units PO DAILY [facility] Stop: 08/17/20 08:59 Last Admin: 07/20/20 08:04 Dose: 1,000 units Documented by: (1) Acute CHF Heart failure type: unspecified Qualified Code(s): I50.9 - Heart failure, unspecified
--- NOTE | 2020-07-20 14:23 | Hospitalist Progress Note ---
Date of Service July 20, 2020 Assessment & Plan (1) Atrial flutter with rapid ventricular response: presented with Aflutter RVR HR @130's ECHO shows severe cardiomyopathy with EF 15-20% cardiology following appreciate input pt is continued with Digoxin and Metoprolol may need RODGER/DC cardioversion prior to dc cont anticoagulation till Acute Decompensated CHF with severe systolic dysfunction EF 15% possible due to arrhythmia /Aflutter , will need further work up for cardiac ischemia / new LBBB at later date after acute illness is resolved cardiology following on IV Lasix 40 mg BID ARB/Losartan dose increased to 25 mg BID noted be hypotensive asymptomatic this am after morning dose will hold PM dose and monitor cardiology aware Acute renal Failure : resolved Cr improved to baseline cont Lasix and Losartan as discussed above repeat BMP In am , avoid NSAID's (2) Diabetes mellitus, type 2: poorly controlled -Hgb A1c 9.6 04/2019 -Update Hgb A1c 9.7 -Pharmacy glycemic consult appreciated -basal lantus dose increased will need to be followed with diabetic MTM clinic on dc (3) DVT prophylaxis: -On IV heparin drip Disposition ; cont monitor in PCU /telemetry Admission and Anticipated Discharge Date Admission Date: July 17, 2020 Subjective Follow up visit for rapid afib rvr , decompensated CHF with systolic dysfunction : offers no new complain still very weak Review of Systems Review of Systems: All systems reviewed & are unremarkable except as noted in Subjective Physical Exam Constitutional: WD/WN, vitals as above Eyes: PERRL, conjunctivae normal, anicteric sclerae ENMT: external ear and nose normal, oropharynx normal Neck: trachea midline, no thyromegaly Respiratory: Auscultation: + diminished lung sounds and + rales Cardiovascular: RRR, no murmur, no edema Rate/Rhythm: + irregularly irregular Extremities: + edema (+ 3 edema pitting bilat ) Gastrointestinal (Abdomen): normal bowel sounds, soft, nontender, no hepatosplenomegaly Musculoskeletal: no cyanosis or clubbing, extremities motor strength 5/5 Skin: no rashes, warm and dry Neurologic: PERRL, EOMI, accommodation nl, no face palsy, no dysarthria Psychiatric: A+Ox3, euthymic affect Results & Data Results & Data ([facility]) Vital Signs (Past 12 Hours) Vital Signs Temp Pulse Pulse Resp BP BP Pulse Ox 07/20/20 12:20 36.5 C 86 20 87/54 L 96 07/20/20 08:33 104 H 07/20/20 08:00 87 07/20/20 07:15 36.5 C 107 H 20 106/83 95 07/20/20 04:00 36.5 C 126 H 16 101/73 96 07/20/20 03:51 126 H 101/73
--- NOTE | 2020-07-20 17:15 | Communication Note ---
Date of Service: July 20, 2020 attending note: IV heparin D/paul started on Eliquis 5 mg BID -starting from 9 pm today -per Cardiology recommendation Dolores Nix MD
[2020-07-20] MEDS: DIGOXIN 0.25 MG TAB PO SCH (17:59)
[2020-07-20] MEDS ORDERED: APIXABAN 5 MG TABLET PO SCH (18:00)
[2020-07-20] MEDS ORDERED: [UNRECOGNIZED DRUG - REMARK] ONE (20:30)
[2020-07-20] MEDS ORDERED: INSULIN GLARGINE SOLOSTAR 100 UNITS/ML 3 ML PEN SC SCH (21:00)
[2020-07-20] MEDS ORDERED: LOSARTAN POTASSIUM 25 MG TAB PO SCH (21:00)
[2020-07-20] MEDS: APIXABAN 5 MG TABLET PO SCH (21:12)
[2020-07-21] MEDS: INSULIN ASPART 100 UNITS/ML 3 ML PEN SC SCH ×4 (07:51→21:10)
[2020-07-21 08:44] LABS: BUN Creatinine Ratio 21.2 (10-20); Calcium 8.5 mg/dl (8.5-10.1); Creatinine Clr Calc Pharmacy 107.8 ml/min; Est GFR (African American) 94.8; Est GFR (Non-African American) 81.8; Potassium 3.7 mmol/L (3.5-5.1)
[2020-07-21] MEDS: POTASSIUM CHLORIDE CRTAB 20 MEQ TABCR PO SCH ×2 (09:25→17:10)
[2020-07-21] MEDS: ASPIRIN 81 MG ECTAB PO SCH (09:25)
[2020-07-21] MEDS: APIXABAN 5 MG TABLET PO SCH ×2 (09:25→21:07)
[2020-07-21] MEDS: ATORVASTATIN 20 MG TAB PO SCH (09:25)
[2020-07-21] MEDS: PANTOprazole 40 MG TAB PO SCH (09:25)
[2020-07-21] MEDS: FUROSEMIDE 40 MG in SYRINGE 0 ML IV SCH ×2 (09:25→21:08)
[2020-07-21] MEDS: CHOLECALCIFEROL 1,000 UNITS 25 MCG TAB PO SCH (09:25)
[2020-07-21] MEDS: CYANOCOBALAMIN 500 MCG TABLET (VITAMIN B-12) PO SCH (09:25)
[2020-07-21] MEDS: METOPROLOL TARTRATE 50 MG TAB PO SCH ×2 (09:30→21:06)
--- NOTE | 2020-07-21 11:13 | Pharmacy Report ---
Pharmacy Glycemic Short Note 2 - Date of Service July 21, 2020 - Glycemic Short BSG Results (Last 24 hours): 07/20/20 07/20/20 07/20/20 11:27 16:39 20:33 Glucose POC Glucose 113 H 140 H 152 H 07/21/20 07/21/20 07:29 07:50 Glucose 102 H POC Glucose 95 OUTPATIENT ANTIDIABETIC REGIMEN: * Lantus 55 units Q HS * Metformin 1gm PO BID * A1c = 9.7% 07/18/20 ASSESSMENT: 07/21 * 71 units of total insulin given yesterday: 42 units basal and 29 units bolus. * BSGs within goal yesterday. Fasting BSG today was 95 mg/dl. Lantus dose reduced by 20% for tonight. * Heparin drip discontinued last night. Loosened Novolog parameters this AM. 07/20 * 85 units SQ given over last 24 hrs * BSGs well controlled yesterday * Fasting AM BSG 108 this AM with 50 units basal on board. Given decreasing fasting AM BSG trend on current Lantus dose, will reduce dose moving forward as BSG may continue to fall as we approach steady-state on current dose. * Post-prandial BSGs well controlled w/ current Novolog CR and CF - no change 07/19 * 96 units SQ given over last 24 hrs * BSGs fairly well controlled yesterday * Fasting AM BSG 272 this AM, however pt had food at bedside this AM and likely ate prior to BSG check. Will not adjust basal today as a result. * Post-prandial BSGs well controlled yesterday - no change will be made to Novolog CR or CF 07/18 * Poorly controlled type 2 diabetic admitted for ADHF, a fib w/ RVR * BSG as high as 279 on admission, patient initiated on basal / bolus regimen using both out-pt regimen and weight-based estimates * Fasting BSG 178 this AM w/ 50 units basal on board and after receiving 6 units correctional insulin overnight. Will give additional Lantus this AM due to fasting elevation. * Current Novolog CF and CR are reasonable starting points given observed responses thus far - will follow post-prandial BSG pattern PLAN FOR INPATIENT GLYCEMIC CONTROL: * Hold outpatient oral diabetes medications (metformin) * Basal insulin - decrease * Lantus 35 units SQ HS * Bolus insulin - loosened * NovoLog per scale ACHS or Q6hrs while NPO * Goal Range: Low 110 mg/dL - High 140 mg/dL * Correction Factor: 20 mg/dL/unit * Nutritional / Prandial insulin per carb ratio of 1 unit per 8 grams CHO consumed PLAN FOR DISCHARGE: * Given A1c > 9%, would recommend consideration of the additional of either SGLT2i (with potential heart failure benefits i.e. empagliflozin or canagliflozin) or GLP1-agonist (with proven CVD benefits i.e. liraglutide or semaglutide) on discharge. Insurance coverage may need to be verified prior to prescribing. These would be used in addition to current out-pt regimen of metformin + Lantus.
--- NOTE | 2020-07-21 11:17 | Cardiology Progress Note ---
Date of Service July 21, 2020 Assessment & Plan (1) Severe left ventricular systolic dysfunction: (2) Atrial flutter with rapid ventricular response: (3) LBBB (left bundle branch block): (4) Morbid obesity: Continue IV lasix, KCL. metoprolol and digoxin for rate control. Eliquis for stroke prophylaxis. Optimize volume status. Possible RODGER cardioversion early next week on 07/23 or 07/24 depending on progress. Anesthesia consult order placed. Admission and Anticipated Discharge Date Admission Date: July 17, 2020 Subjective Patient seen in cardiology follow up. No acute complaints , resting comfortably. Review of Systems Review of Systems: All systems reviewed & are unremarkable except as noted in HPI & below Physical Exam Physical Exam: Temp Pulse Resp BP Pulse Ox 37.4 C 102 H 20 102/64 96 07/21/20 07:42 07/21/20 07:42 07/21/20 07:42 07/21/20 07:42 07/21/20 07:42 Constitutional: ill appearing, no acute distress Respiratory: decreased breathsounds bilaterally at the bases, no rales or rhonchi Cardiovascular: Rate/Rhythm: regular rhythm and + tachycardic Heart Sounds: no murmur Vessels: + JVD (unable to assess due to body habitus) Gastrointestinal (Abdomen): normal bowel sounds, soft, nontender, no hepatosplenomegaly Neurologic: PERRL, EOMI, accommodation nl, no face palsy, no dysarthria Motor/Sensory: graphesthesia intact bilaterally Results & Data ([facility]) Vital Signs (Past 12 Hours) Vital Signs Temp Pulse Pulse Resp BP Pulse Ox 07/21/20 07:42 37.4 C 102 H 20 102/64 96 07/21/20 03:39 37.2 C 102 H 20 119/77 97 07/21/20 00:35 109 H Laboratory Results Comprehensive Metabolic Panel 07/21/20 Range/Units 07:50 Sodium 138 (136-145) mmol/L Potassium 3.7 (3.5-5.1) mmol/L Chloride 102 (98-107) mmol/L Carbon Dioxide 32 (21-32) mmol/L BUN 17 (7-18) mg/dl Creatinine 0.81 (0.6-1.2) mg/dl Glucose 102 H (70-99) mg/dl Calcium 8.5 (8.5-10.1) mg/dl Intake and Output 07/20/20 07/21/20 07/21/20 22:59 06:59 14:59 Intake Total 860.834 / 1326.501 200 / 1326.501 Output Total 1050 / 2750 1400 / 2750 Balance -189.166 / -1423.499 -1200 / -1423.499 Intake: IV 460.834 / 486.501 HEPARIN SODIUM/DEXTROSE 25,000 460.834 / 486.501 units In 500 ml @ 1,750 UNITS/ HR 35 mls/hr IV [id number] [facility] Rx #:[id number] Oral 400 / 840 200 / 840 Output: Urine Amount (Catheter) 1050 / 2750 1400 / 2750 Alan/Indwelling 1050 / 2750 1400 / 2750 Other: Weight 138.9 kg Weight Measurement Method Standing Scale
[2020-07-21] MEDS: DIGOXIN 0.25 MG TAB PO SCH (16:08)
--- NOTE | 2020-07-21 18:37 | Hospitalist Progress Note ---
Date of Service July 21, 2020 Assessment & Plan (1) Atrial flutter with rapid ventricular response: presented with Aflutter RVR HR @130's ECHO shows severe cardiomyopathy with EF 15-20% cardiology following appreciate input pt is continued with Digoxin and Metoprolol currently rate controlled plan for dc cardioversion on Thursday anticoagulation changed to PO Eliquis Acute Decompensated CHF with severe systolic dysfunction EF 15% possible due to arrhythmia /Aflutter , will need further work up for cardiac ischemia / new LBBB at later date after acute illness is resolved cardiology following on IV Lasix 40 mg BID added Losartan Acute renal Failure : resolved Cr improved to baseline cont Lasix and Losartan as discussed above repeat BMP In am , avoid NSAID's (2) Diabetes mellitus, type 2: poorly controlled -Hgb A1c 9.6 04/2019 -Update Hgb A1c 9.7 -Pharmacy glycemic consult appreciated -basal lantus dose increased will need to be followed with diabetic MTM clinic on dc (3) DVT prophylaxis: eliquis Disposition ; cont monitor in PCU /telemetry Admission and Anticipated Discharge Date Admission Date: July 17, 2020 Subjective pt reports feeling fine SOB has improved no complain of chest pain or orthopnea , no fever or chills Physical Exam Constitutional: WD/WN, vitals as above Eyes: PERRL, conjunctivae normal, anicteric sclerae ENMT: external ear and nose normal, oropharynx normal Neck: trachea midline, no thyromegaly Respiratory: Auscultation: + diminished lung sounds and + rales Cardiovascular: RRR, no murmur, no edema Rate/Rhythm: + irregularly irregular Extremities: + edema (+ 3 edema pitting bilat ) Gastrointestinal (Abdomen): normal bowel sounds, soft, nontender, no hepatosplenomegaly Musculoskeletal: no cyanosis or clubbing, extremities motor strength 5/5 Skin: no rashes, warm and dry Neurologic: PERRL, EOMI, accommodation nl, no face palsy, no dysarthria Psychiatric: A+Ox3, euthymic affect Results & Data Results & Data ([facility]) Vital Signs (Past 12 Hours) Vital Signs Temp Pulse Pulse Resp BP Pulse Ox 07/21/20 16:26 36.6 C 93 H 19 106/70 97 07/21/20 16:08 94 H 07/21/20 11:15 36.8 C 110 H 19 143/79 H 95 07/08 07:42 37.4 C 102 H 20 102/64 96
[2020-07-21] MEDS ORDERED: INSULIN GLARGINE SOLOSTAR 100 UNITS/ML 3 ML PEN SC SCH (21:00)
[2020-07-21] MEDS: ONDANSETRON INJ 2 MG/ML 2 ML VIAL IV PRN (22:26)
[2020-07-22 07:34] LABS: BUN Creatinine Ratio 15.5 (10-20); Calcium 8.8 mg/dl (8.5-10.1); Creatinine Clr Calc Pharmacy 100.1 ml/min; Est GFR (African American) 88.1; Est GFR (Non-African American) 76.1; Potassium 3.9 mmol/L (3.5-5.1)
[2020-07-22] MEDS: ASPIRIN 81 MG ECTAB PO SCH (08:19)
[2020-07-22] MEDS: LOSARTAN POTASSIUM 25 MG TAB PO SCH (08:19)
[2020-07-22] MEDS: METOPROLOL TARTRATE 50 MG TAB PO SCH ×2 (08:19→20:08)
[2020-07-22] MEDS: PANTOprazole 40 MG TAB PO SCH (08:19)
[2020-07-22] MEDS: POTASSIUM CHLORIDE CRTAB 20 MEQ TABCR PO SCH ×2 (08:19→16:41)
[2020-07-22] MEDS: CHOLECALCIFEROL 1,000 UNITS 25 MCG TAB PO SCH (08:20)
[2020-07-22] MEDS: CYANOCOBALAMIN 500 MCG TABLET (VITAMIN B-12) PO SCH (08:20)
[2020-07-22] MEDS: ATORVASTATIN 20 MG TAB PO SCH (08:21)
[2020-07-22] MEDS: APIXABAN 5 MG TABLET PO SCH ×2 (08:21→20:08)
[2020-07-22] MEDS: FUROSEMIDE 40 MG in SYRINGE 0 ML IV SCH ×2 (08:21→20:09)
[2020-07-22] MEDS: INSULIN ASPART 100 UNITS/ML 3 ML PEN SC SCH ×4 (08:21→20:09)
--- NOTE | 2020-07-22 08:21 | XRay Report ---
SINGLE VIEW CHEST CLINICAL HISTORY: Congestive heart failure. FINDINGS: An AP, portable, upright chest radiograph is compared to chest x-ray and chest CT dated 06/20. The examination is degraded by portable technique and large body habitus. The heart is enlarg ed. There is pulmonary vascular congestion and interstitial edema. This has modestly worsened as comp ared to 07/17/2020. Layering pleural effusions have increased in size with bibasilar consolidation. No pneumothorax is seen. The skeletal structures are osteopenic. The bony thorax is grossly intact. IMPRESSION: 1. Cardiomegaly with evidence of congestive failure and mild interstitial edema. This has modestly wo rsened as compared to 07/17/2020. 2. Layering pleural effusions with bibasilar consolidation have modestly increased in size. ACT 112: Negative or not required by law. Electronically signed by: Myles Fisher M.D. 07/22/2020 8:20 AM
--- NOTE | 2020-07-22 09:13 | Anesthesiology Consultation ---
Date of Service July 22, 2020 Assessment & Plan Chart Review Chart Review: Acceptable Risk for Surgery and Patient NOT seen in Pre Admission Testing History Height/Weight Height: 5 ft 3 in Weight: 135.9 kg Allergies Allergy/AdvReac Type Severity Reaction Status Date / Time lisinopril Allergy Severe Anaphylaxis Verified 07/19/20 09:37 Medications Home Medications Medication Instructions Recorded Confirmed Last Taken atorvastatin 20 mg PO QAM 10/21/19 07/17/20 07/16/20 metformin 1,000 mg PO BID 10/21/19 07/17/20 07/16/20 Lantus U-100 Insulin 55 unit SUBCUT HS #0 ml 10/23/19 07/17/20 07/16/20 omega 2-dzt-kcz-fish oil 1,000 mg 1 cap PO QAM 10/26/19 07/17/20 07/16/20 (120 mg-180 mg) capsule amlodipine 5 mg PO QAM 11/21/19 07/17/20 07/16/20 aspirin [Aspirin Low-Strength] 81 mg PO QAM 04/02/20 07/17/20 07/16/20 cholecalciferol (vitamin D3) 25 mcg PO DAILY 07/17/20 07/17/20 Unknown cyanocobalamin (vitamin B-12) 1,000 mcg PO DAILY 07/17/20 07/17/20 Unknown omeprazole magnesium [Prilosec OTC] 20 mg PO DAILY 07/17/20 07/17/20 Unknown Active Medications Generic Name Dose Route Start Last Admin Trade Name Freq PRN Reason Stop Dose Admin Acetaminophen 650 mg 07/17/20 14:36 07/19/20 06:09 Acetaminophen 325 Mg Tab PO 08/16/20 14:35 650 mg Q4H PRN Administration Pain or Fever Apixaban 5 mg 07/20/20 21:00 07/22/20 08:21 Apixaban 5 Mg Tablet PO 08/19/20 20:59 5 mg BID JUAN Administration Aspirin 81 mg 07/18/20 09:00 07/22/20 08:19 Aspirin 81 Mg Ectab PO 08/17/20 08:59 81 mg QAM JUAN Administration Atorvastatin Calcium 20 mg 07/18/20 09:00 07/22/20 08:21 Atorvastatin 20 Mg Tab PO 08/17/20 08:59 20 mg QAM JUAN Administration Cyanocobalamin 1,000 mcg 07/18/20 09:00 07/22/20 08:20 Cyanocobalamin 500 Mcg Tablet (Vitamin B-12) PO 08/17/20 08:59 1,000 mcg DAILY JUAN Administration Digoxin 0.25 mg 07/20/20 16:00 07/21/20 16:08 Digoxin 0.25 Mg Tab PO 08/19/20 15:59 0.25 mg DAILY@1600 JUAN Administration Furosemide 40 mg/ Syringe 4 mls @ 4 mls/min 07/17/20 21:00 07/22/20 08:21 IV 08/16/20 20:59 4 mls/min BID JUAN Administration Insulin Aspart 0 units 07/17/20 16:30 07/22/20 08:21 Insulin Aspart 100 Units/Ml 3 Ml Pen SC 08/16/20 16:29 6 units ACHS JUAN Administration Protocol Insulin Glargine 35 units 07/21/20 21:00 07/21/20 21:09 Insulin Glargine Solostar 100 Units/Ml 3 Ml Pen SC 08/20/20 20:59 35 units HS JUAN Administration Lorazepam 0.5 mg 07/18/20 16:30 07/18/20 19:50 Lorazepam 0.5 Mg Tab PO 08/17/20 16:29 0.5 mg TID PRN Administration Anxiety Losartan Potassium 25 mg 07/22/20 09:00 07/22/20 08:19 Losartan Potassium 25 Mg Tab PO 08/21/20 08:59 25 mg DAILY JUAN Administration Metoprolol Tartrate 50 mg 07/20/20 09:00 07/22/20 08:19 Metoprolol Tartrate 50 Mg Tab PO 08/19/20 08:59 50 mg BID JUAN Administration Ondansetron HCl 4 mg 07/19/20 00:06 07/21/20 22:26 Ondansetron Inj 2 Mg/Ml 2 Ml Vial IV 08/18/20 00:05 4 mg Q6H PRN Administration Nausea And Vomiting Pantoprazole Sodium 40 mg 07/18/20 09:00 07/22/20 08:19 Pantoprazole 40 Mg Tab PO 08/17/20 08:59 40 mg DAILY JUAN Administration Potassium Chloride 20 meq 07/18/20 09:00 07/22/20 08:19 Potassium Chloride Crtab 20 Meq Tabcr PO 08/17/20 08:59 20 meq BID17 JUAN Administration Vitamin D 1,000 units 07/18/20 09:00 07/22/20 08:20 Cholecalciferol 1,000 Units 25 Mcg Tab PO 08/17/20 08:59 1,000 units DAILY JUAN Administration Past Medical History Medical History (Updated 07/21/20 @ 11:15 by Parviz Sears DO) Diabetes mellitus, type 2 IDDM GERD (gastroesophageal reflux disease) History of nephrolithiasis Hyperlipidemia Hypertension Kidney stones Morbid obesity Spinal stenosis Vitamin D deficiency Past Family History Family History Mother Pancreatic cancer Diabetes Bilateral kidney stones Sister Bilateral kidney stones Hypertension Father Heart disease Brother Bilateral kidney stones Other No family history of adverse response to anesthesia Past Surgical History Surgical History History of section x2 History of cholecystectomy History of nephrolithotomy with removal of calculi History of tonsillectomy Hx of cystoscopy with stone extraction Status post cystoscopy with ureteral stent placement most recent cystoscopy 11/07/19 [place] Social History Smoking Status: Never smoker Do You Dip or Chew Tobacco: No Hx Alcohol Use: No Hx Substance Use: No substance use type: does not use Physical Exam Vital Signs Last Vital Signs Temp 37.1 C 07/22/20 06:55 Pulse 89 07/22/20 06:55 Resp 18 07/22/20 06:55 BP 111/83 07/22/20 06:55 Pulse Ox 94 07/22/20 06:55 Testing Laboratory Results 07/18/20 04:26 07/22/20 06:50 PT 11.7 Seconds (9.0-12.0) 07/17/20 13:26 INR 1.2 (0.9-1.1) H 07/17/20 13:26 APTT 48.5 Seconds (21.0-31.0) H* 07/20/20 06:20 Hemoglobin A1c 9.7 % (4.5-5.6) H 07/18/20 04:26 Urine Color Dark Yellow 07/19/20 13:45 Urine Appearance Turbid (Clear) A 07/19/20 13:45 Urine pH 5.0 (4.5-7.5) 07/19/20 13:45 Ur Specific [place] 1.023 (1.000-1.030) 07/19/20 13:45 Urine Protein 2+ (Negative) H 07/19/20 13:45 Urine Glucose (UA) Negative (Negative) 07/19/20 13:45 Urine Ketones Negative (Negative) 07/19/20 13:45 Urine Nitrite Negative (Negative) 07/19/20 13:45 Ur Leukocyte Esterase 2+ (Negative) H 07/19/20 13:45 Urine WBC (Auto) >30 /hpf (0-5) H 07/19/20 13:45 Urine RBC (Auto) >30 /hpf (0-4) H 07/19/20 13:45 U Hyaline Cast (Auto) 1-5 /lpf (0-5) 07/19/20 13:45 U Epithel Cells (Auto) 10-20 /lpf (0-5) H 07/19/20 13:45 Urine Bacteria (Auto) Negative (Negative) 07/19/20 13:45 07/19/20 13:45 Urine Culture - Final Urine,Straight Cath Lactobacillus species 07/22/20 06:57 POC Glucose 124 H Electrocardiogram Date: 07/19/20 Findings: + AFIB @ (a flutter with variable a-v block) and + LBBB Echocardiogram Date: 07/18/20 EF: 15-20 LV Function: dysfunctional
--- NOTE | 2020-07-22 11:11 | Hospitalist Progress Note ---
Date of Service July 22, 2020 Assessment & Plan (1) Atrial flutter with rapid ventricular response: presented with Aflutter RVR HR @130's-new diagnosis ECHO shows severe cardiomyopathy with EF 15-20% ( possible due to cardiac arrhythmia ? ) no known hx of AK will need repeat ECHO in out patient once HR has improved cardiology following appreciate input started on Metoprolol and Digoxin remains in Aflutter with variable HR in low 100's pt does not have symptoms of dizzy spell or palpitation plan for dc cardioversion on Thursday07/23/20 , ordered for NPO past midnight anticoagulation changed to PO Eliquis Insurance coverage for Eliquis needs to be checked prior to discharge home Acute Decompensated CHF with severe systolic dysfunction EF 15% possible due to arrhythmia /Aflutter , presented with significant volume overload /pulmonary congestion , lower ext worsening of edema , orthopnea symptoms has improved since starting on IV Diuresis -Lasix 40 mg IV BID cardiology following added Low dose Losartan Acute renal Failure : resolved Cr improved to baseline cont Lasix and Losartan as discussed above repeat BMP In am , avoid NSAID's Restless leg syndrome : trial of Requip (2) Diabetes mellitus, type 2: poorly controlled -Hgb A1c 9.6 04/2019 -Update Hgb A1c 9.7 -Pharmacy glycemic consult appreciated -basal lantus dose increased will need to be followed with diabetic MTM clinic on dc (3) DVT prophylaxis: eliquis Disposition ; cont monitor in PCU /telemetry plan for DC cardioversion in am Disposition : will be discharged home when medically stable will need to establish care with Cardiology /Diabetic MTM clinic / Admission and Anticipated Discharge Date Admission Date: July 17, 2020 Subjective follow up visit for Aflutter /CHF with severe systolic heart failure /column overload Pt sitting on chair , says feels much better now no orthopnea or SOB denies of any chest pain /no palpitation or dizzy spell no fever or chills /no cough persisted hypoxia with 2 L 02 via nasal canula complains of constant movements of both legs ( restless leg syndrome ) can not find a comfortable position , \has been going on for weeks night time symptoms are worse Review of Systems Review of Systems: All systems reviewed & are unremarkable except as noted in Subjective Physical Exam Constitutional: WD/WN, vitals as above + obese Eyes: PERRL, conjunctivae normal, anicteric sclerae ENMT: external ear and nose normal, oropharynx normal Neck: trachea midline, no thyromegaly Respiratory: Auscultation: + diminished lung sounds and + rales Cardiovascular: RRR, no murmur, no edema Rate/Rhythm: + irregularly irregular Extremities: + edema (+ 3 edema pitting bilat ) Gastrointestinal (Abdomen): normal bowel sounds, soft, nontender, no h epatosplenomegaly Musculoskeletal: no cyanosis or clubbing, extremities motor strength 5/5 Skin: no rashes, warm and dry Neurologic: PERRL, EOMI, accommodation nl, no face palsy, no dysarthria Psychiatric: A+Ox3, euthymic affect Results & Data Results & Data ([facility]) Vital Signs (Past 12 Hours) Vital Signs Temp Pulse Pulse Resp BP BP Pulse Ox 07/22/20 10:58 36.7 C 102 H 19 106/73 96 07/22/20 08:00 112 H 07/22/20 06:55 37.1 C 89 18 111/83 94 07/22/20 04:07 36.8 C 103 H 24 132/84 95 07/22/20 00:19 132 H
--- NOTE | 2020-07-22 12:23 | Cardiology Progress Note ---
Date of Service July 22, 2020 Assessment & Plan (1) Severe left ventricular systolic dysfunction: (2) LBBB (left bundle branch block): (3) Atrial flutter with rapid ventricular response: (4) Morbid obesity: Patient with newly recognized severe left ventricular systolic dysfunction, left bundle branch block, without overt anginal symptoms. She remains in atrial flutter intraocular response. She has been anticoagulated with unfractioned heparin earlier this hospital stay, and then transition to Eliquis which she is tolerating well. COVID-19 testing has been negative on 07/17/2020. Will proceed with transesophageal echocardiogram direct-current cardioversion, tentatively tomorrow 07/23/2020. Anesthesia consult previously placed, case discussed with Dr. yL by phone yesterday. RODGER and CV consents completed and are on chart. NPO after MN. Admission and Anticipated Discharge Date Admission Date: July 17, 2020 Subjective Patient without subjective complaint with exception of legs feeling restless. She notes having presented initially to the hospital with progressive shortness of breath of at least 1 months duration. She feels her shortness of breath is subjectively improved. She has never been tested or treated for sleep apnea pulse oximetry is 96% on 2 L. Telemetry reveals ongoing atrial flutter with ventricular rate in the range of 100 to 110 bpm with underlying left bundle branch block. Physical Exam Physical Exam: Temp Pulse Resp BP Pulse Ox 36.7 C 102 H 19 106/73 96 07/22/20 10:58 07/22/20 10:58 07/22/20 10:58 07/22/20 10:58 07/22/20 10:58 Constitutional: WD/WN, vitals as above Respiratory: Mildly decreased breath sounds in the bases, no rales rhonchi or wheezing Cardiovascular: Rate/Rhythm: + tachycardic Heart Sounds: no murmur Vessels: no JVD Extremities: no edema Neurologic: PERRL, EOMI, accommodation nl, no face palsy, no dysarthria Results & Data ([facility]) Vital Signs (Past 12 Hours) Vital Signs Temp Pulse Pulse Resp BP BP Pulse Ox 07/22/20 10:58 36.7 C 102 H 19 106/73 96 07/22/20 08:00 112 H 07/22/20 06:55 37.1 C 89 18 111/83 94 07/22/20 04:07 36.8 C 103 H 24 132/84 95 07/22/20 00:19 132 H Laboratory Results Comprehensive Metabolic Panel 07/22/20 Range/Units 06:50 Sodium 136 (136-145) mmol/L Potassium 3.9 (3.5-5.1) mmol/L Chloride 98 (98-107) mmol/L Carbon Dioxide 34 H (21-32) mmol/L BUN 13 (7-18) mg/dl Creatinine 0.86 (0.6-1.2) mg/dl Glucose 126 H (70-99) mg/dl Calcium 8.8 (8.5-10.1) mg/dl Intake and Output 07/21/20 07/22/20 07/22/20 22:59 06:59 14:59 Intake Total 240 / 760 240 / 240 Output Total 1800 / 4900 1100 / 4900 Balance -1560 / -4140 -1100 / -4140 240 / 240 Intake: Oral 240 / 760 240 / 240 Output: Urine Amount (Catheter) 1800 / 4900 1100 / 4900 Alan/Indwelling 1800 / 4900 1100 / 4900 Other: Other Intake Source Sips Weight 135.9 kg 135.9 kg Weight Measurement Method Standing Scale Patient Weight 07/23/20 06:59 Weight 135.9 kg
--- NOTE | 2020-07-22 14:29 | Pharmacy Report ---
Pharmacy Glycemic Short Note 2 - Date of Service July 22, 2020 - Glycemic Short BSG Results (Last 24 hours): 07/21/20 07/21/20 07/22/20 16:10 20:47 06:50 Glucose 126 H POC Glucose 99 147 H 07/22/20 07/22/20 06:57 11:10 Glucose POC Glucose 124 H 172 H OUTPATIENT ANTIDIABETIC REGIMEN: * Lantus 55 units Q HS * Metformin 1gm PO BID * A1c = 9.7% 07/18/20 ASSESSMENT: 07/22 * 51 units of total insulin given yesterday: 35 units basal and 16 units bolus. * BSGs were within goal yesterday. Fasting BSG today was 124 mg/dl. Lantus dose increased slightly. * Pre-lunch BSG slightly elevated at 172 mg/dl. Novolog CR tightened. 07/21 * 71 units of total insulin given yesterday: 42 units basal and 29 units bolus. * BSGs within goal yesterday. Fasting BSG today was 95 mg/dl. Lantus dose reduced by 20% for tonight. * Heparin drip discontinued last night. Loosened Novolog parameters this AM. 07/20 * 85 units SQ given over last 24 hrs * BSGs well controlled yesterday * Fasting AM BSG 108 this AM with 50 units basal on board. Given decreasing fasting AM BSG trend on current Lantus dose, will reduce dose moving forward as BSG may continue to fall as we approach steady-state on current dose. * Post-prandial BSGs well controlled w/ current Novolog CR and CF - no change 07/19 * 96 units SQ given over last 24 hrs * BSGs fairly well controlled yesterday * Fasting AM BSG 272 this AM, however pt had food at bedside this AM and likely ate prior to BSG check. Will not adjust basal today as a result. * Post-prandial BSGs well controlled yesterday - no change will be made to Novolog CR or CF 07/18 * Poorly controlled type 2 diabetic admitted for ADHF, a fib w/ RVR * BSG as high as 279 on admission, patient initiated on basal / bolus regimen using both out-pt regimen and weight-based estimates * Fasting BSG 178 this AM w/ 50 units basal on board and after receiving 6 units correctional insulin overnight. Will give additional Lantus this AM due to fasting elevation. * Current Novolog CF and CR are reasonable starting points given observed responses thus far - will follow post-prandial BSG pattern PLAN FOR INPATIENT GLYCEMIC CONTROL: * Hold outpatient oral diabetes medications (metformin) * Basal insulin - increase * Lantus 40 units SQ HS * Bolus insulin - loosened * NovoLog per scale ACHS or Q6hrs while NPO * Goal Range: Low 110 mg/dL - High 140 mg/dL * Correction Factor: 20 mg/dL/unit * Nutritional / Prandial insulin per carb ratio of 1 unit per 6 grams CHO consumed PLAN FOR DISCHARGE: * Given A1c > 9%, would recommend consideration of the additional of either SGLT2i (with potential heart failure benefits i.e. empagliflozin or canagliflozin) or GLP1-agonist (with proven CVD benefits i.e. liraglutide or semaglutide) on discharge. Insurance coverage may need to be verified prior to prescribing. These would be used in addition to current out-pt regimen of metformin + Lantus.
--- NOTE | 2020-07-22 16:10 | Communication Note ---
Date of Service: July 22, 2020 With patient's permission I updated her son, Eliceo, by phone [phone]. I updated her sister, Melba by phone.
[2020-07-22] MEDS: DIGOXIN 0.25 MG TAB PO SCH (16:41)
[2020-07-22] MEDS: INSULIN GLARGINE SOLOSTAR 100 UNITS/ML 3 ML PEN SC SCH (20:09)
[2020-07-22] MEDS: rOPINIRole HCL 0.25 MG TABLET PO SCH (20:46)
[2020-07-23] MEDS: APIXABAN 5 MG TABLET PO SCH ×2 (07:17→20:31)
[2020-07-23] MEDS ORDERED: LIDOCAINE HCL 2% MPF (LOCAL) 5 ML VIAL INFIL ONE (07:18)
[2020-07-23] MEDS ORDERED: PROPOFOL IV EMULSION 10 MG/ML 20 ML VIAL IV ONE ×2 (07:18→07:33)
[2020-07-23] MEDS ORDERED: PHENYLEPHRINE 100MCG/ML 5ML SYR ONE (07:19)
--- NOTE | 2020-07-23 07:22 | History & Physical Bridge Note ---
Date of Service July 23, 2020 History & Physical Bridge Note I have examined the patient, reviewed the History & Physical and in the interval since the performance of the History & Physical I have noted the following changes of clinical significance: no changes noted. Am labs pending. Remains in [facility] with RVR. Informed consent obtained and pt elects to proceed. Eliquis taken last evening at 2007 and this am 7:17 am with a sip of water.
[2020-07-23 07:42] LABS: Calcium 9.2 mg/dl (8.5-10.1); Creatinine Clr Calc Pharmacy 90.7 ml/min; Est GFR (African American) 79.2; Est GFR (Non-African American) 68.3; Ferritin 288.8 ng/ml (8-388)
[2020-07-23] MEDS ORDERED: AMIODARONE / D5W 150 MG/100 ML BAG IV STA (08:06)
[2020-07-23] MEDS ORDERED: 0.2 MICRON FILTER SET 1 EA IV ONE (08:06)
[2020-07-23] MEDS ORDERED: AMIODARONE IV BOLUS & DRIP IV STA (08:06)
[2020-07-23] MEDS ORDERED: STAT IV Infusion **Titration per Protocol STA (08:06)
--- NOTE | 2020-07-23 08:12 | Cardioversion ---
Date of Service July 23, 2020 Electrical Cardioversion Rpt Electrical Cardioversion Report Date of Surgery July 23, 2020 Pre & Post Diagnosis Preprocedure diagnosis: Symptomatic atrial flutter with rapid ventricular response, cardiomyopathy, severe left ventricular systolic dysfunction Postprocedure diagnosis: No left atrial appendage thrombus, direct-current cardioversion initially successful, then reverted back to atrial flutter. Operation Date: 07/23/20 07:15 Procedure Procedure: Transesophageal echocardiogram guided direct-current cardioversion The patient's vital signs were monitored in standard fashion. After informed consent was obtained and a timeout was performed, the patient was sedated with the assistance of Dr. Flor of anesthesia receiving a total of 20 mg of IV lidocaine and 80 mg of IV propofol. A focused goal directed transesophageal echocardiogram was performed for risk stratification prior to consideration of cardioversion. Limited relevant views were obtained of the left atrial appendage with no evidence of left atrial appendage thrombus. A single dose of 200 J of biphasic synchronized energy was administered with initial successful conversion to sinus rhythm in the 80 to 85 bpm range. During recovery, patient was noted to revert back to atrial flutter. Left bundle branch block morphology noted throughout the procedure. Plan: Twelve-lead EKG pending. Digoxin. Start IV amiodarone infusion for rate control and rhythm control strategy. Soda Fountain Manager Parviz Sears DO Machine Fancy Stitcher Miguelina Rosen, EDGARDO Estimated Blood Loss 0 Findings Consistent with Post-Op Diagnosis Anesthesia Type MAC Complications none Overlapping Procedure I was immediately available: during the entire case.
[2020-07-23] MEDS ORDERED: AMIODARONE / D5W 360 MG/200 ML BAG IV ONE (08:15)
[2020-07-23] MEDS ORDERED: AMIODARONE 150MG / 100ML D5W (CATH LAB USE ONLY) ONE (08:19)
[2020-07-23] MEDS ORDERED: AMIODARONE 360MG / 200ML D5W (CATH LAB USE ONLY) ONE (08:20)
--- NOTE | 2020-07-23 08:32 | Anesthesiology Progress Note ---
Date of Service July 23, 2020 Anesthesia Post Procedure Vital Signs Vital Signs: Temp Pulse Pulse Resp BP Pulse Ox 07/23/20 08:25 75 18 122/95 98 07/23/20 08:10 88 18 116/95 92 07/23/20 07:36 36.6 C 110 H 18 133/72 99 07/23/20 07:06 36.9 C 112 H 18 111/78 98 07/23/20 03:04 36.9 C 67 18 121/83 97 07/22/20 23:37 36.5 C 87 18 139/88 97 07/22/20 23:08 94 H 07/22/20 18:57 37.1 C 106 H 18 126/83 95 07/22/20 16:41 105 H 07/22/20 14:59 37.2 C 98 H 19 104/73 94 07/22/20 10:58 36.7 C 102 H 19 106/73 96 Transfer of Care Handoff Completed per policy Notes Mental Status: alert / awake / arousable and participated in evaluation Patient Amnestic to Procedure: Yes Nausea / Vomiting: adequately controlled Pain: adequately controlled Airway Patency, RR, SpO2: stable & adequate BP & HR: stable & adequate Hydration State: stable & adequate Anesthetic Complications: no major complications apparent
[2020-07-23] MEDS: INSULIN ASPART 100 UNITS/ML 3 ML PEN SC SCH ×4 (08:34→20:36)
[2020-07-23] MEDS ORDERED: HEPARIN (PORCINE) 1000 UNIT/ML 10 ML (CATH LAB USE ONLY) ONE (08:59)
[2020-07-23] MEDS ORDERED: MIDAZOLAM HCL 1 MG/ML 2ML VIAL ONE ×2 (09:15→10:49)
[2020-07-23] MEDS ORDERED: fentaNYL citrate 100 MCG/2 ML VIAL ONE (09:15)
[2020-07-23 09:33] LABS: Potassium 4.1 mmol/L (3.5-5.1)
--- NOTE | 2020-07-23 09:38 | Electrocardiogram Report ---
Test Reason : Blood Pressure : / mmHG Vent. Rate : 087 BPM Atrial Rate : 087 BPM P-R Int : 166 ms QRS Dur : 150 ms QT Int : 394 ms P-R-T Axes : 068 046 112 degrees QTc Int : 474 ms Normal sinus rhythm Left bundle branch block Abnormal ECG When compared with ECG of 19-JUL-2020 05:34, Sinus rhythm has replaced Atrial flutter T wave inversion no longer evident in Anterolateral leads Confirmed by Manohar Thorpe ([id number] on 07/23/2020 9:38:12 AM Referred By: Zulma Tripp Confirmed By:Manohar Thorpe
--- NOTE | 2020-07-23 10:41 | Communication Note ---
Date of Service: July 23, 2020 pt underwent RODGER cardioversion today -unsuccessful to convert to normal rhythm pt will be started on IV Amiodarone gtt , will need continued hospital stay till Heart rate and rhythm is controlled appropriately appreciate input from Cardiology stated on PO Eliquis for anticoagulation , has been tolerating well Pt presented with Symptomatic atrial flutter with rapid ventricular response cardiomyopathy, severe left ventricular systolic dysfunction EF 15-20% Will be discharged home with Eliquis 5 mg PO BID -as recommended by Cardiology needs insurance prior Auth ; appropriate paper works will be filled out pt has normal liver and renal function , for non valvular afib /aflutter Eliquis is preferable for stroke prevention and systemic embolization Dolores Nix MD
[2020-07-23] MEDS: ASPIRIN 81 MG ECTAB PO SCH (11:34)
[2020-07-23] MEDS: ATORVASTATIN 20 MG TAB PO SCH (11:34)
[2020-07-23] MEDS: CYANOCOBALAMIN 500 MCG TABLET (VITAMIN B-12) PO SCH (11:34)
[2020-07-23] MEDS: PANTOprazole 40 MG TAB PO SCH (11:35)
[2020-07-23] MEDS: LOSARTAN POTASSIUM 25 MG TAB PO SCH (11:35)
[2020-07-23] MEDS: CHOLECALCIFEROL 1,000 UNITS 25 MCG TAB PO SCH (11:35)
[2020-07-23] MEDS: METOPROLOL TARTRATE 50 MG TAB PO SCH ×2 (11:35→20:31)
[2020-07-23] MEDS: POTASSIUM CHLORIDE CRTAB 20 MEQ TABCR PO SCH ×2 (11:35→17:00)
--- NOTE | 2020-07-23 13:02 | Cardiology Progress Note ---
Date of Service July 23, 2020 Assessment & Plan (1) Severe left ventricular systolic dysfunction: (2) LBBB (left bundle branch block): (3) Atrial flutter with rapid ventricular response: (4) Morbid obesity: Patient with initial successful RODGER guided cardioversion this morning, and appeared to lapsed back into atrial flutter during recovery. With further observation, she was noted to be in sinus rhythm on follow-up EKG prior to transfer from the procedure room. IV amiodarone initiated, for rhythm control strategy, as I think that maintaining sinus rhythm is very important for her. Discontinue IV furosemide. Transition to oral torsemide tomorrow. Tolerating losartan. With regards to amiodarone surveillance, baseline TSH was within normal limits earlier this hospital stay. Repeat hepatic panel tomorrow. Admission and Anticipated Discharge Date Admission Date: July 17, 2020 Subjective Patient seen in follow-up having undergone transesophageal echocardiogram guided direct-current cardioversion this morning. She was sitting up eating her noontime meal. Sinus rhythm was noted in the 60s, with left bundle branch block. Physical Exam Physical Exam: Temp Pulse Resp BP Pulse Ox 36.6 C 82 18 106/69 98 07/23/20 07:36 07/23/20 11:14 07/23/20 08:40 07/23/20 11:14 07/23/20 08:40 Constitutional: WD/WN, vitals as above Respiratory: normal respiratory effort, lungs clear to auscultation Cardiovascular: RRR, no murmur, no edema Gastrointestinal (Abdomen): normal bowel sounds, soft, nontender, no hepatosp lenomegaly Neurologic: PERRL, EOMI, accommodation nl, no face palsy, no dysarthria Results & Data ([facility]) Vital Signs (Past 12 Hours) Vital Signs Temp Pulse Pulse Resp BP BP Pulse Ox 07/23/20 11:14 82 106/69 07/23/20 10:37 76 111/73 07/23/20 09:39 76 119/78 07/23/20 09:10 76 96/70 L 07/23/20 08:55 72 113/74 07/23/20 08:50 73 07/23/20 08:40 74 18 144/100 H 98 07/23/20 08:25 75 18 122/95 98 07/23/20 08:10 88 18 116/95 92 07/23/20 07:36 36.6 C 110 H 18 133/72 99 07/23/20 07:06 36.9 C 112 H 18 111/78 98 07/23/20 07:00 114 H 07/23/20 03:04 36.9 C 67 18 121/83 97 Laboratory Results Comprehensive Metabolic Panel 07/23/20 07/23/20 Range/Units 06:30 08:59 Sodium 135 L (136-145) mmol/L Potassium 4.1 (3.5-5.1) mmol/L Chloride 95 L (98-107) mmol/L Carbon Dioxide 35 H (21-32) mmol/L BUN 18 (7-18) mg/dl Creatinine 0.94 (0.6-1.2) mg/dl Glucose 122 H (70-99) mg/dl Calcium 9.2 (8.5-10.1) mg/dl Intake and Output 07/22/20 07/23/20 07/23/20 22:59 06:59 14:59 Intake Total 450 / 930 100 / 100 Output Total 500 / 3700 1650 / 3700 Balance -500 / -2770 -1200 / -2770 100 / 100 Intake: IV 100 / 100 NEXTERONE / D5W 150 mg In 100 100 / 100 ml @ 600 mls/hr IV NOW STA Rx#: [id number] Oral 450 / 930 Output: Urine Amount (Catheter) 500 / 3700 1650 / 3700 Alan/Indwelling 500 / 3700 1650 / 3700 Other: Other Intake Source npo Weight 133.9 kg 133.9 kg Weight Measurement Method Standing Scale Patient Weight 07/24/20 06:59 Weight 133.9 kg
--- NOTE | 2020-07-23 13:05 | Communication Note ---
Date of Service: July 23, 2020 I called pt's sister, Melba and provided update. I attempted to reach her son, Eliceo , but no answer on phone.
[2020-07-23] MEDS: AMIODARONE / D5W 360 MG/200 ML BAG IV SCH (14:07)
[2020-07-23] MEDS: rOPINIRole HCL 0.25 MG TABLET PO SCH (20:31)
[2020-07-23] MEDS: INSULIN GLARGINE SOLOSTAR 100 UNITS/ML 3 ML PEN SC SCH (20:32)
--- NOTE | 2020-07-24 | Hospitalist Progress Note ---
Date of Service July 24, 2020 Assessment & Plan (1) Atrial flutter with rapid ventricular response: presented with Aflutter RVR HR @130's-new diagnosis ECHO shows severe cardiomyopathy with EF 15-20% ( possible due to cardiac arrhythmia ? ) no known hx of NC will need repeat ECHO in out patient once HR has improved cardiology following appreciate input s/p RODGER cardioversion today , was on normal sinus post procedure then developed brief episode of Aflutter , converted to normal sinus prior to transfer to floor started on IV amiodarone gtt pt will be observed in tele overnight on Eliquis for stroke prophylaxis , insurance auth for approved Acute Decompensated CHF with severe systolic dysfunction EF 15% Volume status improved after IV diuresis possible due to arrhythmia /Aflutter , presented with significant volume overload /pulmonary congestion , lower ext worsening of edema , orthopnea pt reports improvement of lower ext edema, does not have any orthopnea , minimum RICHARDS cardiology following . Diuretics will be changed to PO prior to discharge tomorrow AM added Low dose Losartan /renal function has been stable Acute renal Failure : resolved Cr improved to baseline cont Lasix and Losartan as discussed above Restless leg syndrome : trial of Requip /pt reports improvement of symptoms (2) Diabetes mellitus, type 2: poorly controlled -Hgb A1c 9.6 04/2019 -Update Hgb A1c 9.7 -Pharmacy glycemic consult appreciated esmer be followed with diabetic [facility] clinic on dc (3) DVT prophylaxis: eliquis Disposition ; cont monitor in PCU /telemetry plan for discharge home tomorrow Admission and Anticipated Discharge Date Admission Date: July 17, 2020 Subjective s/p DC cardioversion today now in sinus rhythm with rate controlled no complain of orthopnea , no sob . doing well Physical Exam Constitutional: WD/WN, vitals as above + obese Eyes: PERRL, conjunctivae normal, anicteric sclerae ENMT: external ear and nose normal, oropharynx normal Neck: trachea midline, no thyromegaly Respiratory: Auscultation: + diminished lung sounds and + rales Cardiovascular: RRR, no murmur, no edema Rate/Rhythm: + irregularly irregular Extremities: + edema (+ 3 edema pitting bilat ) Gastrointestinal (Abdomen): normal bowel sounds, soft, nontender, no hepatosplenomegaly Musculoskeletal: no cyanosis or clubbing, extremities motor strength 5/5 Skin: no rashes, warm and dry Neurologic: PERRL, EOMI, accommodation nl, no face palsy, no dysarthria Psychiatric: A+Ox3, euthymic affect Results & Data Results & Data ([facility]) Vital Signs (Past 12 Hours) Vital Signs Temp Pulse Pulse Resp BP BP Pulse Ox 07/23/20 23:08 36.4 C L 63 20 113/74 95 07/23/20 19:49 37.1 C 69 16 129/83 97 07/23/20 16:00 82 07/23/20 15:00 36.4 C L 65 18 120/68 100
[2020-07-24] MEDS: LORazepam 0.5 MG TAB PO PRN (01:00)
[2020-07-24] MEDS: AMIODARONE / D5W 360 MG/200 ML BAG IV SCH (02:42)
[2020-07-24] MEDS: INSULIN ASPART 100 UNITS/ML 3 ML PEN SC SCH ×2 (08:03→12:06)
[2020-07-24] MEDS: PANTOprazole 40 MG TAB PO SCH (08:04)
[2020-07-24] MEDS: POTASSIUM CHLORIDE CRTAB 20 MEQ TABCR PO SCH (08:04)
[2020-07-24] MEDS: ASPIRIN 81 MG ECTAB PO SCH (08:04)
[2020-07-24] MEDS: CYANOCOBALAMIN 500 MCG TABLET (VITAMIN B-12) PO SCH (08:04)
[2020-07-24] MEDS: ATORVASTATIN 20 MG TAB PO SCH (08:04)
[2020-07-24] MEDS: CHOLECALCIFEROL 1,000 UNITS 25 MCG TAB PO SCH (08:05)
[2020-07-24] MEDS: LOSARTAN POTASSIUM 25 MG TAB PO SCH (08:05)
[2020-07-24] MEDS: METOPROLOL TARTRATE 50 MG TAB PO SCH (08:05)
[2020-07-24] MEDS: APIXABAN 5 MG TABLET PO SCH (08:05)
[2020-07-24 08:32] LABS: Albumin Globulin Ratio 0.8 (0.9-2); Albumin Level 3.5 gm/dl (3.4-5.0); BUN Creatinine Ratio 21.5 (10-20); Bilirubin,Total 0.8 mg/dl (0.2-1); Calcium 9.5 mg/dl (8.5-10.1); Creatinine Clr Calc Pharmacy 80.6 ml/min; Est GFR (African American) 68.5; Est GFR (Non-African American) 59.1; Globulin 4.5 gm/dl (2.5-4.0)
[2020-07-24] MEDS ORDERED: TORSEMIDE 20 MG TAB PO SCH (09:00)
--- NOTE | 2020-07-24 11:34 | Cardiology Progress Note ---
Date of Service July 24, 2020 Assessment & Plan (1) Severe left ventricular systolic dysfunction: (2) LBBB (left bundle branch block): (3) Atrial flutter with rapid ventricular response: (4) Morbid obesity: Patient describes being much improved compared to when she presented to the hospital. On Thursday, she described to me 1 month of progressive shortness of breath symptoms, however when I discussed things by phone with her sister Melba, who had taken her to the emergency room, her observation is that the patient was short of breath longer than that. Differential diagnosis still includes with suspected superimposed tachycardia induced cardiomyopathy been in atrial flutter perhaps for quite some time prior to medical care. She certainly also has risk factors for underlying ischemic heart disease and will need stratification as an outpatient. Stable for discharge on the following medications from a cardiac perspective. Atorvastatin 20 mg daily Torsemide 20 mg daily Potassium chloride 20 mEq 1 time per day Metoprolol succinate 50 mg 1 time per day Amiodarone 200 mg by mouth daily Eliquis 5 mg twice daily Since we are starting Eliquis, I do not believe she needs aspirin. Diabetes medications as per hospitalist team. Cardiology follow-up in [address] Sears , Dr Huertas, or PA. Admission and Anticipated Discharge Date Admission Date: July 17, 2020 Subjective Patient seen in follow-up of chief complaint of shortness of breath. She tolerated T cardioversion well yesterday, and remains in sinus rhythm. Amiodarone infusion ongoing, remains in sinus rhythm, sinus bradycardia in the range of 50 to 60 bpm, with first-degree AV block, left bundle branch block on EKG this morning. Physical Exam Physical Exam: Temp Pulse Resp BP Pulse Ox 36.6 C 63 16 128/81 93 07/24/20 08:00 07/24/20 08:00 07/24/20 08:00 07/24/20 08:00 07/24/20 08:00 Constitutional: WD/WN, vitals as above Respiratory: normal respiratory effort, lungs clear to auscultation Cardiovascular: RRR, no murmur, no edema Gastrointestinal (Abdomen): normal bowel sounds, soft, nontender, no hepatosplenomegaly Neurologic: PERRL, EOMI, accommodation nl, no face palsy, no dysarthria Results & Data ([facility]) Vital Signs (Past 12 Hours) Vital Signs Temp Pulse Pulse Resp BP BP Pulse Ox 07/24/20 08:00 36.6 C 59 L 63 16 128/81 93 07/24/20 03:00 36.7 C 78 19 123/81 98 Laboratory Results Cardiac Enzymes 07/24/20 Range/Units 07:26 AST 13 L (15-37) U/L Comprehensive Metabolic Panel 07/24/20 Range/Units 07:26 Sodium 135 L (136-145) mmol/L Potassium 4.0 (3.5-5.1) mmol/L Chloride 96 L (98-107) mmol/L Carbon Dioxide 34 H (21-32) mmol/L BUN 23 H (7-18) mg/dl Creatinine 1.06 (0.6-1.2) mg/dl Glucose 136 H (70-99) mg/dl Calcium 9.5 (8.5-10.1) mg/dl AST 13 L (15-37) U/L ALT 22 (12-78) U/L Alkaline Phosphatase 95 (45-117) U/L Total Protein 8.0 (6.4-8.2) gm/dl Albumin 3.5 (3.4-5.0) gm/dl Intake and Output 07/23/20 07/24/20 07/24/20 22:59 06:59 14:59 Intake Total 350 / 647.58 Output Total 300 / 750 150 / 750 Balance -300 / -102.42 200 / -102.42 Intake: IV 200 / 497.58 NEXTERONE / D5W 360 mg In 200 200 / 200 ml @ 0.5 MG/MIN 16.667 mls/hr IV .Q12H [facility] Rx#:[id number] Oral 150 / 150 Output: Urine 150 / 300 150 / 300 Urine Amount (Catheter) 150 / 450 Alan/Indwelling 150 / 450 Other: # Unmeasured Voids 1 Weight 134.218 kg Weight Measurement Method Standing Scale Diagnostic Findings EKG performed today 07/24/2020 at 6:21 AM revealed normal sinus rhythm at 61 bpm, borderline first-degree AV block, left bundle branch block, QRS duration 158 ms.
--- NOTE | 2020-07-24 11:40 | Communication Note ---
Date of Service: July 24, 2020 I called and updated patient's son , Eliceo, by phone. I am hopeful she may be discharged later today.
--- NOTE | 2020-07-24 14:24 | Electrocardiogram Report ---
Test Reason : Blood Pressure : / mmHG Vent. Rate : 061 BPM Atrial Rate : 061 BPM P-R Int : 166 ms QRS Dur : 158 ms QT Int : 468 ms P-R-T Axes : 052 -26 132 degrees QTc Int : 471 ms Normal sinus rhythm Left bundle branch block Abnormal ECG When compared with ECG of 23-JUL-2020 08:03, QRS axis Shifted left Confirmed by Flaco Martinez ([id number]) on 07/24/2020 2:23:46 PM Referred By: Zulma Tripp Confirmed By:Flaco Martinez
--- NOTE | 2020-07-24 15:22 | Discharge Summary ---
Date of Service July 24, 2020 Admission HPI Per Admitting Provider 55-year-old female with PMH DM type II, HTN, and other problems as below who presents the ED for evaluation of shortness of breath. Patient reports that she has been feeling short of breath for the past 1 month. Reports shortness of breath with minimal exertion. She is needed to sleep sitting up in the chair because shortness of breath becomes worse whenever she lies flat. She also notes increasing lower extremity edema. She reports abdominal bloating that she felt like was secondary to GERD. Sometimes the abdominal bloating presses up into her chest. She denies any other chest discomfort, pain, pressure. She has had some occasional palpitations. No lightheadedness, dizziness, diaphoresis, syncopal events. Denies any other recent illnesses, fevers, chills. No abdominal pain, nausea, vomiting, diarrhea. She denies any urinary symptoms. In the ED, patient was found to be tachycardic in the 130s. EKG showed an unchanged LBBB. Labs show proBNP 2200. CXR shows small bilateral pleural effusions. Patient was given nitroglycerin 2 inch topical, metoprolol 5 mg IV with minimal improvement in HR. Principal Diagnosis Atrial Flutter * Decompensated CHF with systolic dysfunction * poorly controlled type 2 diabetes Discharge Exam Constitutional WD/WN, vitals as above + obese Eyes PERRL, conjunctivae normal, anicteric sclerae ENMT external ear and nose normal, oropharynx normal Neck trachea midline, no thyromegaly Respiratory Auscultation: + diminished lung sounds and + rales Cardiovascular RRR, no murmur, no edema Rate/Rhythm: + irregularly irregular Extremities: + edema (+ 3 edema pitting bilat ) Gastrointestinal (Abdomen) normal bowel sounds, soft, nontender, no hepatosplenomegaly Musculoskeletal no cyanosis or clubbing, extremities motor strength 5/5 Skin no rashes, warm and dry Neurologic PERRL, EOMI, accommodation nl, no face palsy, no dysarthria Psychiatric A+Ox3, euthymic affect Discharge Data Allergies Allergy/AdvReac Type Severity Reaction Status Date / Time lisinopril Allergy Severe Anaphylaxis Verified 07/19/20 09:37 Consultations 07/17/20 13:37 ED Decision to Admit Stat 07/17/20 14:36 Consult Cardiology Routine 07/21/20 11:07 Consult Anesthesiology Routine Procedures Performed Operation Date: 07/23/20 07:15 Actual Procedures p Echo Transesophageal - DO stanton Siddiqui Echo Doppler Complete - DO stanton Siddiqui Echo Color Flow - DO stanton Siddiqui Cardioversion - Parviz Sears DO Ordered Studies 07/17/20 14:54 CT angio chest PE protocol Stat US venous doppler LE BI Urgent Diabetes Follow up Diabetes Follow-up Needed for HgbA1c >9% Hospital Course (1) Atrial flutter with rapid ventricular response: presented with Aflutter RVR HR @130's-new diagnosis ECHO shows severe cardiomyopathy with EF 15-20% ( possible due to cardiac arrhythmia ? ) no known hx of NH will need repeat ECHO in out patient once HR has improved cardiology following appreciate input s/p RODGER cardioversion , remains in normal sinus rhythm with rate controlled overnight stable to be discharged home today with PO Amiodarone on Eliquis for stroke prophylaxis , insurance auth for approved Acute Decompensated CHF with severe systolic dysfunction EF 15% Volume status improved after IV diuresis possible due to arrhythmia /Aflutter , presented with significant volume overload /pulmonary congestion , lower ext worsening of edema , orthopnea pt reports improvement of lower ext edema, does not have any orthopnea , minimum RICHARDS cardiology following . pt is discharged home today with PO Torsemide added Low dose Losartan /renal function has been stable Acute renal Failure : resolved Cr improved to baseline Restless leg syndrome : started on Requip /pt reports improvement of symptoms (2) Diabetes mellitus, type 2: poorly controlled -Hgb A1c 9.6 04/2019 -Update Hgb A1c 9.7 -Pharmacy glycemic consult appreciated esmer be followed with diabetic MTM clinic on dc (3) DVT prophylaxis: eliquis Disposition ; discharged to home today Total Time Total Time Spent Total Time Spent (In Minutes): 35 mins Total Time Includes: Examination of the Patient, Discharge Planning and Medication Reconciliation Discharge Plan Discharge Items Patient Disposition: Home - Self-Care Reason For Visit: CHF, TACHYCARDIA Discharge Diagnosis: * Atrial Flutter * Decompensated CHF with systolic dysfunction * poorly controlled type 2 diabetes Activity: Resume your previous activity Non-emergency contact: Primary Care Provider Call non-emergency contact if: you have any medication questions Follow-up/Referrals: Zulma Tripp DO [Primary Care Provider] - 07/30/20 11:00 am (Date & Time 07/30/2020 11:00 AM Provider Zulma Tripp, Department [facility] ) Erik Huertas, [Engraver Lettering] - (Cardiology follow up in 2 weeks ) Diet: Carb Consistent or DM2 and Heart Healthy Add Attending Provider Instructions: Please take all medications as instructed on discharge list below. It is recommended that you follow-up with your primary care physician within 1-2 weeks of hospital discharge to ensure you are still doing well. Please call if you have any questions or problems. 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 * Use the same scale. * Wear the same amount of clothing. * Write your weight down on a chart. * Call your Primary Care doctor if you gain more than 2-3 pounds in 1-2 days. MEDICATIONS * Use this discharge instruction sheet for medication instructions. * Take your medications at the time your doctor ordered. * Do not skip a dose of your medicines. * If you miss a dose of medicine, take it as soon as possible, but DO NOT DOUBLE A DOSE. * Read your medicine information when you get home. * Know all of the side effects of your medicine. If in doubt, ask your pharmacist * Call your Primary Care doctor's office if you have any side effects. * Be sure all of your doctors know what medicine and herbs you take (including cold, flu, and herbal medicine). Take the following with you to your follow-up doctor appointments: * Weight Chart * Medication List * List of questions Do not drink excessive alcohol, beer or wine. Pending Studies at Discharge: No Stand-Alone Forms: [facility], Smoking Cessation Medications and DC Order Prescriptions: New losartan 25 mg Tablet 25 mg PO DAILY Qty: 30 RF: 0 Eliquis 5 mg Tablet 5 mg PO BID 30 Days Qty: 60 RF: 2 ropinirole [Requip] 0.25 mg tablet 0.25 mg PO HS 30 Days Qty: 30 RF: 0 amiodarone 200 mg Tablet 200 mg PO QAM 30 Days Qty: 30 RF: 0 metoprolol succinate 50 mg Tablet Extended Release 24 Hr 50 mg PO QAM 30 Days Qty: 30 RF: 0 torsemide 20 mg Tablet 20 mg PO QAM 30 Days Qty: 30 RF: 0 potassium chloride 20 mEq tablet extended release 20 meq PO DAILY 30 Days Qty: 30 RF: 0 Continued omega 7-pah-xvy-fish oil [Fish Oil] 1,000 mg (120 mg-180 mg) capsule 1 cap PO QAM RF: 0 atorvastatin 20 mg Tablet 20 mg PO QAM RF: 0 metformin 1,000 mg Tablet 1,000 mg PO BID RF: 0 Lantus U-100 Insulin 100 unit/mL Solution 55 unit SUBCUT HS Qty: 0 RF: 0 cyanocobalamin (vitamin B-12) 1,000 mcg Tablet 1,000 mcg PO DAILY RF: 0 cholecalciferol (vitamin D3) 25 mcg (1,000 unit) Capsule 25 mcg PO DAILY RF: 0 omeprazole magnesium [Prilosec OTC] 20 mg Tablet,Delayed Release (Dr/Ec) 20 mg PO DAILY RF: 0 Discontinued aspirin [Aspirin Low-Strength] 81 mg Tablet,Delayed Release (Dr/Ec) 81 mg PO QAM RF: 0 amlodipine 5 mg tablet 5 mg PO QAM RF: 0 Discharge Orders: Discharge Order (Routine); Ordered 07/24/20 Ordered By: Dolores Nix Admission Data Admit Date/Time: 07/17/20 13:39 Attending Provider: Dolores Nix Admit Provider: Jp Swenson Primary Care Provider: Zulma Tripp Other Providers: Jp Swenson ; Erik Huertas ; Anil Ly Other Interventions: Discharge Summary Assessment (RN) Last Done: 07/24/20 12:56
[2020-07-24] MEDS ORDERED: INSULIN GLARGINE SOLOSTAR 100 UNITS/ML 3 ML PEN SC SCH (21:00)
[2020-07-25] MEDS ORDERED: AMIODARONE 200 MG TAB PO SCH (09:00)
[2020-07-25] MEDS ORDERED: METOPROLOL SUCC 50MG EXT REL TAB PO SCH (09:00)
== END 2020-07-24 14:28 | disposition home or self-care (01) | DRG 308 ==
LOC: ED 11:41 → 1E 13:39 → SUATTDRO 13:39 → 1E 14:11 → 2S 07-19 19:26

== ENCOUNTER 2020-08-31 10:29 | Inpatient (IN) ==
[2020-08-31] MEDS ORDERED: STAT IV Infusion **Titration per Protocol STA (10:43)
[2020-08-31] MEDS ORDERED: SODIUM CHLORIDE 0.9% 1000ML 1,000 ML IV ONE (10:43)
[2020-08-31] MEDS ORDERED: dilTIAZem HCl 5 MG/ML 5 ML VIAL IV STA (10:43)
[2020-08-31] MEDS ORDERED: dilTIAZem HCl 5 MG/ML 5 ML VIAL IV ONE (10:44)
[2020-08-31] MEDS ORDERED: dilTIAZem HCL 125 MG in DEXTROSE 5% 100 ML IV SCH (10:45)
[2020-08-31] MEDS ORDERED: APIXABAN 5 MG TABLET PO STA (11:08)
[2020-08-31 11:18] LABS: Basophils # (auto) 0.08 K/uL (0-0.2); Basophils % (auto) 0.7 %; Eosinophils # (auto) 0.35 K/uL (0-0.5); Eosinophils % (auto) 3.1 %; Hematocrit (blood only) 41.1 % (37-47); Immature Granulocytes % (auto) 0.9 %; Lymphocytes # (auto) 2.19 K/uL (1.2-3.4); Lymphocytes % (auto) 19.5 %; Mean Corpuscular Hemoglobin 28.6 pg (25-34); Mean Corpuscular Hgb Conc 34.1 g/dL (32-36); Mean Corpuscular Volume 83.9 fL (80-100); Mean Platelet Volume 12.2 fL (7.4-10.4); Monocytes # (auto) 0.72 K/uL (0.11-0.59); Monocytes % (auto) 6.4 %; Neutrophils % (auto) 69.4 %; Platelet Count 229 K/uL (130-400); RDW Coefficient of Variation 13.6 % (11.5-14.5); RDW Standard Deviation 40.8 fL (36.4-46.3); White Blood Count 11.24 K/uL (4.8-10.8)
[2020-08-31 11:34] LABS: BUN Creatinine Ratio 16.2 (10-20); Blood Urea Nitrogen 14 mg/dl (7-18); Calcium 9.5 mg/dl (8.5-10.1); Carbon Dioxide 28 mmol/L (21-32); Chloride 106 mmol/L (98-107); Creatinine Clr Calc Pharmacy 100.5 ml/min; Est GFR (African American) 90.7 ml/min; Est GFR (Non-African American) 78.2 ml/min; Glucose 242 mg/dl (70-99); Lipase 93 U/L (73-393); Magnesium 1.4 mg/dl (1.8-2.4); Potassium 3.9 mmol/L (3.5-5.1); Sodium 141 mmol/L (136-145)
[2020-08-31 11:39] LABS: Troponin I < 0.015 ng/ml (0-0.045)
--- NOTE | 2020-08-31 11:53 | History & Physical Report ---
Date of Service August 31, 2020 Assessment & Plan (1) Atrial flutter with rapid ventricular response: Spoke with cardiology - plan for repeat cardioversion, potentially today if COVID test negative. Will keep NPO for now - Admit to PCU/tele - Continue Eliquis - pt reports she has been taking consistently until this morning (to receive AM dose in ED) - Received Cardizem 10 mg IV in ED - resume other meds post-cardioversion as was taking at discharge last month (2) Diabetes mellitus, type 2: - Continue Lantus at bedtime (will start with 40 units HS tonight but may need to increase back to 50) - Hold Metformin while admitted - Sliding scale coverage - Diabetic diet after cardioversion (3) Morbid obesity: (4) Hypertension: Meds as outlined for #1 - BP in ED is high but missed multiple medications over past week. Received cardizem as discussed above (5) Vitamin D deficiency: - Continue oral vitamin D supplement Code Status: Full Code DVT prophylaxis: On Eliquis, add SCDs Pt seen and reviewed with attending physician, Dr. Mcadams. Plan of care discussed and as outlined above. Perla Kern PA-C History of Present Illness Chief Complaint: Flutter in chest, short of breath with exertion x 1 day Primary Care Provider: Zulma Tripp DO This is a 55 y/o female with a PMH of atrial flutter, dilated cardiomyopathy with severe LV dysfunction (EF ~20%), insulin-requiring DM, HTN, GERD, and dyslipidemia who presents to the ED today after being referred from her cardiology office where she presented with recurrent fluttering in her chest and dyspnea on exertion that started this morning. Pt was recently admitted to [facility] (in July) with atrial flutter with RVR and heart failure. She underwent RODGER- guided cardioversion during that admission and was discharged on a regimen that included losartan 25 mg daily, metoprolol succinate 50 mg in AM, torsemide 20 mg daily, potassium 20 mEq daily, amiodarone 200 mg daily in AM, and Eliquis 5 mg BID. Unfortunately, she ran out of all of these medications about a week ago. Since only Eliquis had a refill on the prescription, this is the only medication of these that she has continued to take. When on all of these medications, she reported feeling well. A few days ago, she noticed some recurrent pedal edema in the evenings that would resolve with putting her feet up overnight. It has gradually become more persistent, specifically today. This morning, pt went to walk out to her car and noticed a brief flutter in her chest that resolved quickly. This happened 2-3 more times in the 15 minutes that she was driving her daughter to work. When she got home and climbed a flight of steps, the fluttering became more persistent and she became short of breath. The symptoms resolved with rest but recurred when pt got her shower. She called her cardiology office and was evaluated there this morning. She was found to be in atrial flutter with RVR and referred to the ED. Currently, resting in bed, she is feeling well. No fluttering in her chest since she walked in from the parking lot. She denies fevers, chills, chest pain, syncope, lightheadedness, unusual fatigue, N/V, or urinary symptoms. She has noted a dry cough and itchy throat recently that she relates to allergies. Two days ago, she also had transient abdominal cramping and loose stools but this has since resolved. Allergies Allergy/AdvReac Type Severity Reaction Status Date / Time lisinopril Allergy Severe Anaphylaxis Verified 08/31/20 11:13 atorvastatin Allergy Intermediate Hives - Unverified 08/31/20 11:13 itchy Home Medications Medication Instructions Recorded Confirmed Type metformin 1,000 mg PO BID 10/21/19 08/31/20 History cholecalciferol (vitamin D3) 25 mcg PO QAM 07/17/20 08/31/20 History cyanocobalamin (vitamin B-12) 1,000 mcg PO QAM 07/17/20 08/31/20 History omeprazole magnesium [Prilosec OTC] 20 mg PO QAM 07/17/20 08/31/20 History apixaban [Eliquis] 5 mg PO BID 30 Days #60 tab 07/22/20 08/31/20 Rx Lantus U-100 Insulin 50 unit SUBCUT HS 08/31/20 08/31/20 History losartan 25 mg PO QAM 08/31/20 08/31/20 History Past Med/Surg History Medical History Diabetes mellitus, type 2 IDDM GERD (gastroesophageal reflux disease) History of nephrolithiasis Hyperlipidemia Hypertension Kidney stones Morbid obesity Spinal stenosis Vitamin D deficiency Surgical History History of section x2 History of cholecystectomy History of nephrolithotomy with removal of calculi History of tonsillectomy Hx of cystoscopy with stone extraction Status post cystoscopy with ureteral stent placement most recent cystoscopy 11/07/19 [place] Family History Mother Pancreatic cancer Diabetes Bilateral kidney stones Sister Bilateral kidney stones Hypertension Father Heart disease Brother Bilateral kidney stones Other No family history of adverse response to anesthesia Social History Smoking Status: Never smoker Second Hand Exposure: No; Do You Dip or Chew Tobacco: No; Tobacco Cessation Education Requested by Patient: No Hx Alcohol Use: No Hx Substance Use: No Preferred Language: Yemeni Communication Ability: Effective Visual Impairment: No Limitations Automotive Specialty Technician Required: No Beliefs That Will Affect Care: None Current Living Situation: Alone Other Information That Helps Us Care for You: No Feels Safe at Home: Yes Safety Concerns: Feels Safe At This Time Assistive Devices: None Review of Systems Review of Systems: All systems reviewed & are unremarkable except as noted in HPI & below Constitutional: no fever, no chills, no sweats, no fatigue and no anorexia Eyes: no diplopia and no worsening vision Ear, Nose, Mouth, Throat: no nasal congestion, no nasal discharge and no sore throat Respiratory: + cough; no chest congestion, no hemoptysis, no pain on inspiration and no wheezing Cardiovascular: as per Subjective / HPI, + dyspnea on exertion, + orthopnea (stable at two pillows), + palpitations and + edema; no chest pain, no paroxysmal nocturnal dyspnea, no lightheadedness and no syncope Gastrointestinal: as per Subjective / HPI; no heartburn, no nausea, no vomiting, no constipation and no blood in stools Genitourinary: no dysuria, no urinary frequency, no nocturia, no decreased urination and no hematuria Musculoskeletal: + neck pain (transient two days ago - attributes to sleeping wrong, resolved w/ Advil); no back pain Integumentary: no skin ulcer and no urticaria Neurologic: no falls, no localized weakness, no generalized weakness, no paresthesia, no seizure-like activity and no dizziness Psychiatric: no depression and no anxiety Physical Exam Constitutional: WD/WN, vitals as above + obese; no acute distress Eyes: PERRL, conjunctivae normal, anicteric sclerae Neck: trachea midline Respiratory: normal respiratory effort; no respiratory distress and no labored breathing Auscultation: lungs clear to auscultation bilaterally Cardiovascular: Rate/Rhythm: + tachycardic (and irregular) Vessels: no carotid bruit Extremities: + pedal edema (2+ bilateral pitting); no calf tenderness Gastrointestinal (Abdomen): Inspection/Auscultation: normal bowel sounds; abdomen not distended Percussion/Palpation: abdomen soft; abdomen nontender Musculoskeletal: Head/Neck/Chest: normocephalic, head atraumatic and neck supple Skin: normal turgor; no jaundice dry flaking skin on feet bilaterally Neurologic: moves all extremities; no focal motor deficits Psychiatric: A+Ox3, euthymic affect Results & Data Results & Data ([facility]) Vital Signs (Past 12 Hours) Vital Signs Temp Pulse Resp BP Pulse Ox 08/31/20 11:30 129 H 15 154/107 H 08/31/20 11:20 130 H 17 08/31/20 11:10 130 H 15 08/31/20 11:00 128 H 15 160/98 H 08/31/20 10:58 128 H 15 08/31/20 10:56 129 H 15 147/105 H 08/31/20 10:50 129 H 17 174/115 H 08/31/20 10:34 36.4 C L 134 H 22 162/97 H 94 Laboratory Results Laboratory Results - last 24 hr 08/31/20 08/31/20 08/31/20 10:55 10:55 10:55 WBC 11.24 H RBC 4.90 Hgb 14.0 Hct 41.1 MCV 83.9 MCH 28.6 MCHC 34.1 RDW Std Deviation 40.8 RDW Coeff of Nancy 13.6 Plt Count 229 MPV 12.2 H Immature Gran % (Auto) 0.9 Neut % (Auto) 69.4 Lymph % (Auto) 19.5 Hendricks % (Auto) 6.4 Eos % (Auto) 3.1 Baso % (Auto) 0.7 Neut # (Auto) 7.80 H Lymph # (Auto) 2.19 Hendricks # (Auto) 0.72 H Eos # (Auto) 0.35 Baso # (Auto) 0.08 Immature Gran # (Auto) 0.10 H Sodium 141 Potassium 3.9 Chloride 106 Carbon Dioxide 28 Anion Gap 7.0 BUN 14 Creatinine 0.84 Est Cr Clr Drug Dosing 100.5 Est GFR ( Amer) 90.7 Est GFR (Non-Af Amer) 78.2 BUN/Creatinine Ratio 16.2 Glucose 242 H Calcium 9.5 Magnesium 1.4 L Troponin I < 0.015 Lipase 93 COVID-19 Eval Order Covid19 [facility]Now [facility] SARS-CoV-2, RNA, NAAT 08/31/20 10:55 WBC RBC Hgb Hct MCV MCH MCHC RDW Std Deviation RDW Coeff of Nancy Plt Count MPV Immature Gran % (Auto) Neut % (Auto) Lymph % (Auto) Hendricks % (Auto) Eos % (Auto) Baso % (Auto) Neut # (Auto) Lymph # (Auto) Hendricks # (Auto) Eos # (Auto) Baso # (Auto) Immature Gran # (Auto) Sodium Potassium Chloride Carbon Dioxide Anion Gap BUN Creatinine Est Cr Clr Drug Dosing Est GFR ( Amer) Est GFR (Non-Af Amer) BUN/Creatinine Ratio Glucose Calcium Magnesium Troponin I Lipase COVID-19 Eval Order SARS-CoV-2, RNA, NAAT NEGATIVE Medications Administered Discontinued Medications Apixaban (Apixaban 5 Mg Tablet) 5 mg PO ONE STA Stop: 08/31/20 11:09 Last Admin: 08/31/20 11:46 Dose: 5 mg Documented by: [id number] Diltiazem HCl (Diltiazem Hcl 5 Mg/Ml 5 Ml Vial) Confirm Administered Dose 25 mg IV .STK-MED ONE Stop: 08/31/20 10:45 Last Admin: 08/31/20 11:01 Dose: Not Given Documented by: [id number] Diltiazem HCl (Diltiazem Hcl 5 Mg/Ml 5 Ml Vial) 20 mg IV NOW STA Stop: 08/31/20 10:44 Last Admin: 08/31/20 10:55 Dose: 10 mg Documented by: [id number] Cosigned by: [id number] Sodium Chloride (Nss 1000ml) 1,000 mls @ 999 mls/hr IV .Q1H1M ONE Stop: 08/31/20 11:43 Last Admin: 08/31/20 11:03 Dose: Not Given Documented by: [id number] Diltiazem HCl 125 mg/ Dextrose 125 mls @ 5 mls/hr IV .Q24H [facility]; Protocol Stop: 09/30/20 10:44 Last Admin: 08/31/20 11:03 Dose: Not Given Documented by: [id number] Miscellaneous (Stat Iv Infusion Titration Per Protocol) 1 ea N/A NOW STA Stop: 08/31/20 10:44 Last Admin: 08/31/20 11:04 Dose: Not Given Documented by: [id number] Code Status & VTE Plan VTE Prophylaxis Plan VTE Prophylaxis will be ordered: Yes Supervising Physician Co-Signing Physician Notes Patient seen examined by me, care coordinated with Kim Kern PA-C, please refer to her note above for further detail. Mrs. Siddiqui is a 55-year-old female, with history of a flutter, left bundle branch block, severe left ventricular systolic dysfunction, who now presents with recurrent a flutter with RVR, likely secondary to medication noncompliance. Patient was admitted in June for similar, and discharged with several medications, seems that patient continue with Eliquis but ran out of father several days ago. Today experienced shortness of breath on exertion, and palpitations, she was found in a flutter with RVR in the ER. Cardiology was contacted and given patient's been on Eliquis, she was able to undergo cardioversion. Cardioversion was successful and patient is currently in normal sinus rhythm. She is resting in bed, in no acute distress, reports that she is feeling much better. Currently denies any palpitations, chest pain, shortness of breath. Reports mild swelling of her feet, but says it is much better than when she was here last time. She is alert and oriented answering questions appropriately. Lungs are clear to auscultation bilaterally, without any significant wheezing rhonchi, or crackles. Heart sounds are now regular. Abdomen is soft, nontender, obese, nondistended. There is some pedal edema 1-2+, skin is warm dry and well- perfused. Patient moves extremities without difficulty. Restart her home cardiac medications, monitor on telemetry overnight. Cardiology following as well. 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
[2020-08-31] MEDS ORDERED: MAGNESIUM SULFATE / D5W 1 GM/100 ML BAG IV STA (11:56)
--- NOTE | 2020-08-31 12:10 | XRay Report ---
XR chest 1V portable HISTORY: 55 years-old Female Chest Pain acute atypical chest pain COMPARISON: Chest radiograph 07/22/2020, CT chest 07/17/2020 TECHNIQUE: Portable AP view the chest FINDINGS: Cardiomegaly. Mild chronic interstitial coarsening of the lung bases. No pneumothorax, pleural effusi on, airspace consolidation or overt pulmonary edema. Bones of the chest appear grossly intact. IMPRESSION: No acute process. ACT 112: Negative or not required by law. The above report was generated using voice recognition software. It may contain grammatical, syntax o r spelling errors. Electronically signed by: Antoni Devine M.D. 08/31/2020 12:09 PM
--- NOTE | 2020-08-31 12:14 | Cardiology Consultation ---
Date of Consultation August 31, 2020 Assessment & Plan (1) Atrial flutter with rapid ventricular response: (2) LBBB (left bundle branch block): (3) Severe left ventricular systolic dysfunction: Per my discussion with patient. Onset of recurrent RICHARDS this am. Off medications with exception of Eliquis x 1 week. No missed Eliquis doses. Back in AFL RVR, LBBB on EKG. Proceed with direct current cardioversion with anesthesia consult. No RODGER necessary as patient has been in uninterrupted Eliquis . I called her outpatient pharmacy, she had requested a refill the Eliquis on 08/23/2020, and picked it up on 08/24, which correlates with 1 month after her discharge when she would require the medication. Magnesium level to be replaced. She is not acutely volume overloaded, and although her cardiac condition and comorbidities such as BMI of 51 increase her risks of complication related to sedation, I think she is a reasonable candidate for us to proceed with cardioversion today. Anesthesia consulted. History of Present Illness History of Present Illness Alma Siddiqui is a 55 year old female seen in cardiology consultation in the ED room C2B for the evaluation of recurrent dyspnea on exertion, atrial flutter wit h rapid ventricular response. She had recently been admitted from 07/17/2020 until 07/24/2020 having presented with dyspnea on exertion with findings of atrial flutter with rapid ventricular response, left bundle branch block, severe left ventricular systolic dysfunction, and volume overload. She underwent a transesophageal echocardiogram guided direct-current cardioversion on 07/23/2020, with no evidence of left atrial or left atrial appendage thrombus, and successful cardioversion. Discharge medications included Eliquis 5 mg twice daily, amiodarone 200 mg daily, metoprolol succinate, torsemide, and potassium chloride. She had been in post hospital cardiology follow-up last month and was doing well. In the interim, she notes having run out of her medications about a week ago and she had stopped taking them with the exception of Eliquis which she had taken without interruption. This morning, while performing her morning routine she has recurrent dyspnea and was therefore seen in cardiology clinic at [facility]. An EKG revealed recurrent atrial flutter with rapid ventricular spots, left bundle branch block with ventricular rates in the 130s. Patient was referred to the emergency room, and remained tachycardic at the time of my evaluation. She is not acutely volume overloaded. She notes she felt well until this morning. Allergies Allergy/AdvReac Type Severity Reaction Status Date / Time lisinopril Allergy Severe Anaphylaxis Verified 08/31/20 11:13 atorvastatin Allergy Intermediate Hives - Unverified 08/31/20 11:13 itchy Home Medications Medication Instructions Recorded Confirmed Type metformin 1,000 mg PO BID 10/21/19 08/31/20 History cholecalciferol (vitamin D3) 25 mcg PO QAM 07/17/20 08/31/20 History cyanocobalamin (vitamin B-12) 1,000 mcg PO QAM 07/17/20 08/31/20 History omeprazole magnesium [Prilosec OTC] 20 mg PO QAM 07/17/20 08/31/20 History apixaban [Eliquis] 5 mg PO BID 30 Days #60 tab 07/22/20 08/31/20 Rx Lantus U-100 Insulin 50 unit SUBCUT HS 08/31/20 08/31/20 History losartan 25 mg PO QAM 08/31/20 08/31/20 History Patient History Medical History Diabetes mellitus, type 2 IDDM GERD (gastroesophageal reflux disease) History of nephrolithiasis Hyperlipidemia Hypertension Kidney stones Morbid obesity Spinal stenosis Vitamin D deficiency Surgical History History of section x2 History of cholecystectomy History of nephrolithotomy with removal of calculi History of tonsillectomy Hx of cystoscopy with stone extraction Status post cystoscopy with ureteral stent placement most recent [place]oscopy 11/07/19 [place] Family History Mother Pancreatic cancer Diabetes Bilateral kidney stones Sister Bilateral kidney stones Hypertension Father Heart disease Brother Bilateral kidney stones Other No family history of adverse response to anesthesia Social History Smoking Status: Never smoker Second Hand Exposure: No; Hx Alcohol Use: No Hx Substance Use: No Preferred Language: Nepalese Communication Ability: Effective Visual Impairment: No Limitations Media Manager Required: No Beliefs That Will Affect Care: None Current Living Situation: Family Feels Safe at Home: Yes Assistive Devices: None Review of Systems Review of Systems: All systems reviewed & are unremarkable except as noted in HPI & below Physical Exam Physical Exam: Temp Pulse Resp BP Pulse Ox 36.4 C L 133 H 15 147/102 H 98 08/31/20 10:34 08/31/20 12:00 08/31/20 12:00 08/31/20 12:00 08/31/20 11:47 Constitutional: WD/WN, vitals as above Respiratory: normal respiratory effort, lungs clear to auscultation Cardiovascular: Rate/Rhythm: + tachycardic Heart Sounds: no murmur Vessels: + JVD (Neck veins difficult to assess given patient's body habitus) Extremities: + edema (Perhaps mild pitting edema, venous insufficiency noted.) Results & Data ([facility]) Vital Signs (Past 12 Hours) Vital Signs Temp Pulse Pulse Resp BP BP Pulse Ox 08/31/20 11:47 130 H 14 154/107 H 98 08/31/20 11:30 129 H 15 154/107 H 08/31/20 11:20 130 H 17 08/31/20 11:10 130 H 15 08/31/20 11:00 128 H 15 160/98 H 08/31/20 10:58 128 H 15 08/31/20 10:56 129 H 15 147/105 H 08/31/20 10:50 129 H 17 174/115 H 08/31/20 10:34 36.4 C L 134 H 22 162/97 H 94 Laboratory Results Cardiac Enzymes 08/31/20 Range/Units 10:55 Troponin I < 0.015 (0-0.045) ng/ml CBC 08/31/20 Range/Units 10:55 WBC 11.24 H (4.8-10.8) K/uL RBC 4.90 (4.2-5.4) M/uL Hgb 14.0 (12.0-16.0) g/dL Hct 41.1 (37-47) % Plt Count 229 (130-400) K/uL Neut # (Auto) 7.80 H (1.4-6.5) K/uL Lymph # (Auto) 2.19 (1.2-3.4) K/uL Wilkinson # (Auto) 0.72 H (0.11-0.59) K/uL Eos # (Auto) 0.35 (0-0.5) K/uL Baso # (Auto) 0.08 (0-0.2) K/uL Comprehensive Metabolic Panel 08/31/20 Range/Units 10:55 Sodium 141 (136-145) mmol/L Potassium 3.9 (3.5-5.1) mmol/L Chloride 106 (98-107) mmol/L Carbon Dioxide 28 (21-32) mmol/L BUN 14 (7-18) mg/dl Creatinine 0.84 (0.6-1.2) mg/dl Glucose 242 H (70-99) mg/dl Calcium 9.5 (8.5-10.1) mg/dl Intake and Output 08/30/20 08/31/20 08/31/20 22:59 06:59 14:59 Other: Weight 131.7 kg Weight Measurement Method Chair Scale Patient Weight 09/01/20 06:59 Weight 131.7 kg Diagnostic Findings EKG reveals atrial flutter with rapid ventricular response, left bundle branch block morphology. Compared to 07/24/2020 atrial flutter has replaced sinus rhythm.
[2020-08-31] MEDS ORDERED: MIDAZOLAM HCL 1 MG/ML 2ML VIAL ONE (12:30)
--- NOTE | 2020-08-31 12:58 | Anesthesiology Consultation ---
Date of Service August 31, 2020 Assessment & Plan ASA ASA3 Proposed Anesthesia Anesthesia Type: MAC Risk / Benefits Reviewed With: PT / POA / Parent / Guardian, Accepts Plan and Informed Consent Obtained History Surgery Operation Date: 08/31/20 13:00 Proposed Procedures p Transesophageal Echo w/Anesthesia - Parviz Sears DO s Cardioversion Training Facilitator w/Anesthesia - Parviz Sears DO Height/Weight Height: 5 ft 3 in Weight: 131.7 kg Allergies Allergy/AdvReac Type Severity Reaction Status Date / Time lisinopril Allergy Severe Anaphylaxis Verified 08/31/20 11:13 atorvastatin Allergy Intermediate Hives - Unverified 08/31/20 11:13 itchy Medications Home Medications Medication Instructions Recorded Confirmed Last Taken metformin 1,000 mg PO BID 10/21/19 08/31/20 08/30/20 cholecalciferol (vitamin D3) 25 mcg PO QAM 07/17/20 08/31/20 08/30/20 cyanocobalamin (vitamin B-12) 1,000 mcg PO QAM 07/17/20 08/31/20 08/30/20 omeprazole magnesium [Prilosec OTC] 20 mg PO QAM 07/17/20 08/31/20 08/30/20 apixaban [Eliquis] 5 mg PO BID 30 Days #60 tab 07/22/20 08/31/20 08/30/20 Lantus U-100 Insulin 50 unit SUBCUT HS 08/31/20 08/31/20 08/30/20 50 units losartan 25 mg PO QAM 08/31/20 08/31/20 08/24/20 NPO Date Last Intake of Fluids: 08/31/20 Time Last Intake of Fluids: 00:00 Date Last Intake of Solids: 08/31/20 Time Last Intake of Solids: 00:00 Past Medical History Medical History Diabetes mellitus, type 2 IDDM GERD (gastroesophageal reflux disease) History of nephrolithiasis Hyperlipidemia Hypertension Kidney stones Morbid obesity Spinal stenosis Vitamin D deficiency Exercise / Class Metabolic Activity III < 4 Walking/Shop/Light housework Past Family History Family History Mother Pancreatic cancer Diabetes Bilateral kidney stones Sister Bilateral kidney stones Hypertension Father Heart disease Brother Bilateral kidney stones Other No family history of adverse response to anesthesia Past Surgical History Surgical History History of section x2 History of cholecystectomy History of nephrolithotomy with removal of calculi History of tonsillectomy Hx of cystoscopy with stone extraction Status post cystoscopy with ureteral stent placement most recent cystoscopy 11/07/19 [place] Past Anesthesia History No Hx of Anesthesia Complications and No Family Hx of Anesthesia Complications History of PONV No Hx of PONV and No Hx of Motion Sickness Social History Smoking Status: Never smoker Hx Alcohol Use: No Hx Substance Use: No substance use type: does not use Review of Systems denies fever/cough/ colds/ chest pain/ SOB/ JUDY denies JUDY Physical Exam Vital Signs Last Vital Signs Temp 36.4 C L 08/31/20 10:34 Pulse 133 H 08/31/20 12:00 Resp 15 08/31/20 12:00 BP 147/102 H 08/31/20 12:00 Pulse Ox 98 08/31/20 11:47 ENMT Mouth: no TMJ abnormality and no dentition abnormality Thyromental Distance: > or= 3.5 Finger Breadths Mallampati Class: II Neck neck extension not limited Respiratory normal respiratory effort; no respiratory distress Auscultation: lungs clear to auscultation bilaterally Cardiovascular Rate/Rhythm: + tachycardic and + irregularly irregular Neurologic moves all extremities Psychiatric Orientation: alert and oriented x 3 Testing Laboratory Results 08/31/20 10:55 08/31/20 10:55
--- NOTE | 2020-08-31 13:22 | Post Operative Brief Note ---
Cardiology Brief Post Op Date of Surgery August 31, 2020 Pre & Post Diagnosis Preprocedure diagnosis: Symptomatic atrial flutter with rapid ventricular response, left bundle branch block Post procedure diagnosis: Successful conversion to sinus rhythm Operation Date: 08/31/20 13:00 Procedure Procedure: Direct-current cardioversion The patient's vital signs were monitored in standard fashion. After informed consent was obtained and a timeout was performed the patient was sedated with the assistance of the anesthesia service receiving 2 mg of IV midazolam and 50 mg of IV propofol. The patient then underwent synchronized direct-current cardioversion receiving 150 J of biphasic energy x1 dose with successful conversion to sinus rhythm. Post procedure EKG revealed sinus rhythm at 91 bpm with occasional PACs, left bundle branch block, QRS duration 144 ms, relatively unchanged compared to the previous EKG when she was in sinus rhythm dated 07/24/2020. Plan: Admit to telemetry service. Reinitiate medications including metoprolol, amiodarone, torsemide. Continue Eliquis without interruption. Golf Manager Parviz Sears DO Certified Veterinary Technician Ngoc Arevalo RN Estimated Blood Loss 0 Findings Consistent with Post-Op Diagnosis Anesthesia Type MAC Complications none
--- NOTE | 2020-08-31 13:28 | Anesthesiology Progress Note ---
Date of Service August 31, 2020 Anesthesia Post Procedure Vital Signs Vital Signs: Temp Pulse Pulse Resp BP BP Pulse Ox 08/31/20 12:00 133 H 15 147/102 H 08/31/20 11:47 130 H 14 154/107 H 98 08/31/20 11:30 129 H 15 154/107 H 08/31/20 11:20 130 H 17 08/31/20 11:10 130 H 15 08/31/20 11:00 128 H 15 160/98 H 08/31/20 10:58 128 H 15 08/31/20 10:56 129 H 15 147/105 H 08/31/20 10:50 129 H 17 174/115 H 08/31/20 10:34 36.4 C L 134 H 22 162/97 H 94 Transfer of Care Handoff Completed per policy Notes Mental Status: alert / awake / arousable and participated in evaluation Patient Amnestic to Procedure: Yes Nausea / Vomiting: adequately controlled Pain: adequately controlled Airway Patency, RR, SpO2: stable & adequate BP & HR: stable & adequate Hydration State: stable & adequate Anesthetic Complications: no major complications apparent and Pt Satisfied with anesthetic care
--- NOTE | 2020-08-31 13:28 | Cardioversion ---
Date of Service August 31, 2020 Electrical Cardioversion Rpt Electrical Cardioversion Report Date of Surgery August 31, 2020 Pre & Post Diagnosis Preprocedure diagnosis: Symptomatic atrial flutter with rapid ventricular response, left bundle branch block Post procedure diagnosis: Successful conversion to sinus rhythm Operation Date: 08/31/20 13:00 Procedure Procedure: Direct-current cardioversion The patient's vital signs were monitored in standard fashion. After informed consent was obtained and a timeout was performed the patient was sedated with the assistance of the anesthesia service receiving 2 mg of IV midazolam and 50 mg of IV propofol. The patient then underwent synchronized direct-current cardioversion receiving 150 J of biphasic energy x1 dose with successful conversion to sinus rhythm. Post procedure EKG revealed sinus rhythm at 91 bpm with occasional PACs, left bundle branch block, QRS duration 144 ms, relatively unchanged compared to the previous EKG when she was in sinus rhythm dated 07/24/2020. Plan: Admit to telemetry service. Reinitiate medications including metoprolol, amiodarone, torsemide. Continue Eliquis without interruption. Client Renewal Specialist Parviz Sears DO Food And Drug Inspector Ngoc Arevalo RN Estimated Blood Loss 0 Findings Consistent with Post-Op Diagnosis Anesthesia Type MAC Complications none
[2020-08-31] MEDS ORDERED: ACETAMINOPHEN 325 MG TAB PO PRN (13:35)
[2020-08-31] MEDS ORDERED: GLUCAGON FOR INJ 1 MG VIAL SQ PRN (13:35)
[2020-08-31] MEDS ORDERED: DEXTROSE 50% 50 ML SYRINGE IV PRN (13:35)
[2020-08-31] MEDS ORDERED: CARBOHYDRATES FOR HYPOGLYCEMIA PO PRN (13:35)
[2020-08-31] MEDS ORDERED: GLUCOSE 40% GEL 15 GM TUBE PO PRN (13:35)
[2020-08-31] MEDS ORDERED: GLUCOSE 10 TABS/TUBE PO PRN (13:35)
--- NOTE | 2020-08-31 14:27 | Emergency Department Note ---
History of Present Illness General Chief Complaint: Arrhythmia/Palpitations Stated Complaint: RAPID HEARTBEAT/REFERRED BY DR Cooley Seen by Provider: 08/31/20 10:38 History of Present Illness Provider Complaint: + rapid heart beat and + palpitations Duration: + Constant Severity: mild Context: + occurred during rest Arrhythmia history: + on anti-coagulants (Eliquis), + history of electrical cardioversion and + other (Atrial flutter) Associated symptoms: + shortness of breath; no chest pain, no syncope, no near-syncope, no nausea, no vomiting, no anxiety, no diaphoresis, no cough, no paresthesias and no feeling of impending doom HPI narrative: Patient states she has not been taking her medications are presc ribed for her atrial flutter. Home Medications Medication Instructions Recorded Confirmed Type metformin 1,000 mg PO BID 10/21/19 08/31/20 History cholecalciferol (vitamin D3) 25 mcg PO QAM 07/17/20 08/31/20 History cyanocobalamin (vitamin B-12) 1,000 mcg PO QAM 07/17/20 08/31/20 History omeprazole magnesium [Prilosec OTC] 20 mg PO QAM 07/17/20 08/31/20 History apixaban [Eliquis] 5 mg PO BID 30 Days #60 tab 07/22/20 08/31/20 Rx Lantus U-100 Insulin 50 unit SUBCUT HS 08/31/20 08/31/20 History losartan 25 mg PO QAM 08/31/20 08/31/20 History Allergies Allergy/AdvReac Type Severity Reaction Status Date / Time lisinopril Allergy Severe Anaphylaxis Verified 08/31/20 11:13 atorvastatin Allergy Intermediate Hives - Unverified 08/31/20 11:13 itchy Past Med/Surg History Medical History Diabetes mellitus, type 2 IDDM GERD (gastroesophageal reflux disease) History of nephrolithiasis Hyperlipidemia Hypertension Kidney stones Morbid obesity Spinal stenosis Vitamin D deficiency Surgical History History of section x2 History of cholecystectomy History of nephrolithotomy with removal of calculi History of tonsillectomy Hx of cystoscopy with stone extraction Status post cystoscopy with ureteral stent placement most recent cystoscopy 11/07/19 [place] Family History Mother Pancreatic cancer Diabetes Bilateral kidney stones Sister Bilateral kidney stones Hypertension Father Heart disease Brother Bilateral kidney stones Other No family history of adverse response to anesthesia Social History Smoking Status: Never smoker Second Hand Exposure: No; Do You Dip or Chew Tobacco: No; Tobacco Cessation Education Requested by Patient: No Hx Alcohol Use: No Hx Substance Use: No Preferred Language: Macedonian Communication Ability: Effective Visual Impairment: No Limitations Air Brake Operator Required: No Beliefs That Will Affect Care: None Current Living Situation: Alone Other Information That Helps Us Care for You: No Feels Safe at Home: Yes Safety Concerns: Feels Safe At This Time Assistive Devices: None Review of Systems A total of 10 systems reviewed and were otherwise negative Physical Exam Vital Signs: Vital Signs - 24 hr 08/31/20 10:34 08/31/20 10:50 08/31/20 10:56 Temperature 36.4 C L Temperature Source Temporal Artery Sc an Pulse Rate 134 H 129 H 129 H Respiratory Rate 22 17 15 Respiratory Effort / Characteristics Non-Labored Respiratory Depth Normal Respiratory Patter n Regular Blood Pressure 162/97 H 174/115 H 147/105 H Blood Pressure Anastasiia n 118 134 119 Blood Pressure Pos ition Sitting Pulse Oximetry 94 Oxygen Delivery Me thod Room Air Sepsis Recent Feve r Within 48 Hours No Sepsis New/Unexpla ined Change in Men vineet Status No Sepsis Action Take n by Nursing No Action Required 08/31/20 10:58 08/31/20 11:00 08/31/20 11:06 Temperature Temperature Source Pulse Rate 128 H 128 H Respiratory Rate 15 15 Respiratory Effort / Characteristics Respiratory Depth Respiratory Patter n Blood Pressure 160/98 H Blood Pressure Anastasiia n 118 Blood Pressure Pos ition Pulse Oximetry Oxygen Delivery Me thod Room Air Sepsis Recent Feve r Within 48 Hours Sepsis New/Unexpla ined Change in Men vineet Status Sepsis Action Take n by Nursing Physical Exam: Physical Exam GENERAL: She is oriented to person, place, and time. She appears well-developed and well-nourished. She does not appear distressed. HENT: Exam performed. -Head: Normocephalic and atraumatic. -Right Ear: External ear normal. No mastoid tenderness. -Left Ear: External ear normal. No mastoid tenderness. -Mouth/Throat: The oropharynx is clear and moist. No trismus in the jaw. No dental abscesses or uvula swelling. No oropharyngeal exudate or tonsillar abscesses. EYES: Conjunctivae and EOM are normal. Pupils are equal, round, and reactive to light. Right eye exhibits no discharge. Left eye exhibits no discharge. No scleral icterus. NECK: Normal range of motion. Neck supple. No JVD present. No spinous process tenderness present. No carotid bruit present. No rigidity. No tracheal deviation and normal range of motion present. No Brudzinski's sign and no Kernig's sign noted. CV: Tachycardic rate, irregular rhythm, normal heart sounds and intact distal pulses. There is no peripheral edema. Palpable radial pulses bue. PULM/CHEST: Effort normal and breath sounds normal. No respiratory distress. No stridor. She has no wheezes. She has no rales. -Chest Wall: She exhibits no tenderness. ABD: The abdomen is soft and morbidly obese. Bowel sounds are normal. She has no distension. No mass is present. There is no tenderness. There is no rebound, no guarding, no Florian's sign and no tenderness at McBurney's point. Rovsig negative MUSC/SKEL: Normal range of motion. There is no peripheral edema, tenderness or deformity. LYMPH: No cervical adenopathy. NEURO: She is alert and oriented to person, place, and time. She has normal strength. No cranial nerve deficit or sensory deficit. Coordination and gait normal. GCS eye subscore is 4. GCS verbal subscore is 5. GCS motor subscore is 6. Cerebellar tests wnl. SKIN: Skin is warm and dry. She is not diaphoretic. PSYCH: She has a normal mood and affect. Behavior is normal. Judgment and thought content normal. Course Course 1038: The patient was evaluated in room C2. A complete history and physical exam was performed Cardiac monitoring: An order was placed for continuous cardiac monitoring. The monitor shows a rate of 130 with atrial flutter rhythm 1053: Spoke with Dr. Dewayne Feng cardiology he recommends giving the patient Cardizem 10 mg IV push. He recommends that the patient get a rapid Covid test and admit to the hospitalist service. He states he will evaluate the patient for RODGER and cardioversion today. Administered Medications Discontinued Medications Apixaban (Apixaban 5 Mg Tablet) 5 mg PO ONE STA Stop: 08/31/20 11:09 Last Admin: 08/31/20 11:46 Dose: 5 mg Documented by: [id number] Diltiazem HCl (Diltiazem Hcl 5 Mg/Ml 5 Ml Vial) Confirm Administered Dose 25 mg IV .STK-MED ONE Stop: 08/31/20 10:45 Last Admin: 08/31/20 11:01 Dose: Not Given Documented by: [id number] Diltiazem HCl (Diltiazem Hcl 5 Mg/Ml 5 Ml Vial) 20 mg IV NOW STA Stop: 08/31/20 10:44 Last Admin: 08/31/20 10:55 Dose: 10 mg Documented by: [id number] Cosigned by: [id number] Sodium Chloride (Nss 1000ml) 1,000 mls @ 999 mls/hr IV .Q1H1M ONE Stop: 08/31/20 11:43 Last Admin: 08/31/20 11:03 Dose: Not Given Documented by: [id number] Diltiazem HCl 125 mg/ Dextrose 125 mls @ 5 mls/hr IV .Q24H [facility], [facility]–1983; Protocol Stop: 09/30/20 10:44 Last Admin: 08/31/20 11:03 Dose: Not Given Documented by: [id number] Magnesium Sulfate/Dextrose (Magnesium Sulfate / D5w) 1 gm in 100 mls @ 50 mls/hr IV Q2H STA Stop: 08/31/20 13:55 Last Admin: 08/31/20 14:22 Dose: Not Given Documented by: Miscellaneous (Stat Iv Infusion Titration Per Protocol) 1 ea N/A NOW STA Stop: 08/31/20 10:44 Last Admin: 08/31/20 11:04 Dose: Not Given Documented by: [id number] Medical Decision Making Laboratory Data Result diagrams: 08/31/20 10:55 08/31/20 10:55 Lab Results 08/31/20 08/31/20 08/31/20 Range/Units 10:55 10:55 10:55 WBC 11.24 H (4.8-10.8) K/uL RBC 4.90 (4.2-5.4) M/uL Hgb 14.0 (12.0-16.0) g/dL Hct 41.1 (37-47) % MCV 83.9 (80-100) fL MCH 28.6 (25-34) pg MCHC 34.1 (32-36) g/dL RDW Std Deviation 40.8 (36.4-46.3) fL RDW Coeff of Nancy 13.6 (11.5-14.5) % Plt Count 229 (130-400) K/uL MPV 12.2 H (7.4-10.4) fL Immature Gran % (Auto) 0.9 % Neut % (Auto) 69.4 % Lymph % (Auto) 19.5 % Haines % (Auto) 6.4 % Eos % (Auto) 3.1 % Baso % (Auto) 0.7 % Neut # (Auto) 7.80 H (1.4-6.5) K/uL Lymph # (Auto) 2.19 (1.2-3.4) K/uL Haines # (Auto) 0.72 H (0.11-0.59) K/uL Eos # (Auto) 0.35 (0-0.5) K/uL Baso # (Auto) 0.08 (0-0.2) K/uL Immature Gran # (Auto) 0.10 H (0.00-0.02) K/uL Sodium 141 (136-145) mmol/L Potassium 3.9 (3.5-5.1) mmol/L Chloride 106 (98-107) mmol/L Carbon Dioxide 28 (21-32) mmol/L Anion Gap 7.0 (3-11) BUN 14 (7-18) mg/dl Creatinine 0.84 (0.6-1.2) mg/dl Est Cr Clr Drug Dosing 100.5 ml/min Est GFR ( Amer) 90.7 ml/min Est GFR (Non-Af Amer) 78.2 ml/min BUN/Creatinine Ratio 16.2 (10-20) Glucose 242 H (70-99) mg/dl Calcium 9.5 (8.5-10.1) mg/dl Magnesium 1.4 L (1.8-2.4) mg/dl Troponin I < 0.015 (0-0.045) ng/ml Lipase 93 (73-393) U/L COVID-19 Eval [facility] SARS-CoV-2, RNA, NAAT (NEGATIVE) 08/31/20 Range/Units 10:55 WBC (4.8-10.8) K/uL RBC (4.2-5.4) M/uL Hgb (12.0-16.0) g/dL Hct (37-47) % MCV (80-100) fL MCH (25-34) pg MCHC (32-36) g/dL RDW Std Deviation (36.4-46.3) fL RDW Coeff of Nancy (11.5-14.5) % Plt Count (130-400) K/uL MPV (7.4-10.4) fL Immature Gran % (Auto) % Neut % (Auto) % Lymph % (Auto) % Haines % (Auto) % Eos % (Auto) % Baso % (Auto) % Neut # (Auto) (1.4-6.5) K/uL Lymph # (Auto) (1.2-3.4) K/uL Haines # (Auto) (0.11-0.59) K/uL Eos # (Auto) (0-0.5) K/uL Baso # (Auto) (0-0.2) K/uL Immature Gran # (Auto) (0.00-0.02) K/uL Sodium (136-145) mmol/L Potassium (3.5-5.1) mmol/L Chloride (98-107) mmol/L Carbon Dioxide (21-32) mmol/L Anion Gap (3-11) BUN (7-18) mg/dl Creatinine (0.6-1.2) mg/dl Est Cr Clr Drug Dosing ml/min Est GFR ( Amer) ml/min Est GFR (Non-Af Amer) ml/min BUN/Creatinine Ratio (10-20) Glucose (70-99) mg/dl Calcium (8.5-10.1) mg/dl Magnesium (1.8-2.4) mg/dl Troponin I (0-0.045) ng/ml Lipase (73-393) U/L COVID-19 Eval Order SARS-CoV-2, RNA, NAAT NEGATIVE (NEGATIVE) ECG Data Additional Comments: EKG #1 at 1043: Atrial flutter with a rate of 131. QRS 138 QTC 552. Left bundle branch block present. Sgarbosa negative. EKG #2 at 1059: Atrial flutter with a rate of 130. QRS 138 QTC 541. Left bundle branch block present. Sgarbosa negative. MDM Narrative Spoke with Dr. Dewayne Feng cardiology he recommends giving the patient Cardizem 10 mg IV push. He recommends that the patient get a rapid Covid test and admit to the hospitalist service. He states he will evaluate the patient for RODGER and cardioversion today. Impression & Plan Atrial flutter Discharge Plan Visit Data Chief Complaint: Arrhythmia/Palpitations Stated Complaint: RAPID HEARTBEAT/REFERRED BY ED Provider: Larry Franklin Discharge Problem: Atrial flutter Patient Disposition: Admitted As Inpatient Discharge Problem: Atrial flutter Qualifiers: Atrial flutter type: atypical Qualified Code(s): I48.4 - Atypical atrial flutter
[2020-08-31] MEDS: INSULIN ASPART 100 UNITS/ML 3 ML PEN SC SCH ×2 (17:22→21:50)
[2020-08-31] MEDS ORDERED: AMIODARONE 200 MG TAB PO ONE (17:27)
[2020-08-31] MEDS ORDERED: METOPROLOL TARTRATE 25 MG TAB PO ONE (17:45)
[2020-08-31] MEDS ORDERED: INSULIN GLARGINE SOLOSTAR 100 UNITS/ML 3 ML PEN SC SCH (21:00)
[2020-08-31] MEDS: APIXABAN 5 MG TABLET PO SCH (21:49)
[2020-09-01 06:12] LABS: Basophils # (auto) 0.07 K/uL (0-0.2); Basophils % (auto) 0.6 %; Eosinophils # (auto) 0.29 K/uL (0-0.5); Eosinophils % (auto) 2.7 %; Hematocrit (blood only) 38.2 % (37-47); Hemoglobin 12.8 g/dL (12.0-16.0); Immature Granulocytes # (auto) 0.06 K/uL (0.00-0.02); Immature Granulocytes % (auto) 0.6 %; Lymphocytes # (auto) 2.77 K/uL (1.2-3.4); Lymphocytes % (auto) 25.5 %; Mean Corpuscular Hemoglobin 28.4 pg (25-34); Mean Corpuscular Hgb Conc 33.5 g/dL (32-36); Mean Corpuscular Volume 84.7 fL (80-100); Mean Platelet Volume 11.5 fL (7.4-10.4); Monocytes # (auto) 0.77 K/uL (0.11-0.59); Monocytes % (auto) 7.1 %; Neutrophils % (auto) 63.5 %; Platelet Count 212 K/uL (130-400); RDW Coefficient of Variation 13.9 % (11.5-14.5); RDW Standard Deviation 42.6 fL (36.4-46.3); Red Blood Count 4.51 M/uL (4.2-5.4); White Blood Count 10.86 K/uL (4.8-10.8)
--- NOTE | 2020-09-01 06:15 | Electrocardiogram Report ---
Test Reason : Blood Pressure : / mmHG Vent. Rate : 131 BPM Atrial Rate : 267 BPM P-R Int : 000 ms QRS Dur : 138 ms QT Int : 374 ms P-R-T Axes : 259 -45 130 degrees QTc Int : 552 ms Atrial flutter with variable A-V block Left axis deviation Left bundle branch block Abnormal ECG When compared with ECG of 24-JUL-2020 06:21, Atrial flutter has replaced Sinus rhythm Vent. rate has increased BY 70 BPM Confirmed by Angel Ybarra ([id number]) on 09/01/2020 6:15:32 AM Referred By: Parviz Sears Confirmed By:Angel Ybarra
--- NOTE | 2020-09-01 06:30 | Electrocardiogram Report ---
Test Reason : Blood Pressure : / mmHG Vent. Rate : 091 BPM Atrial Rate : 091 BPM P-R Int : 160 ms QRS Dur : 144 ms QT Int : 418 ms P-R-T Axes : 042 -39 116 degrees QTc Int : 514 ms Sinus rhythm Left axis deviation Left bundle branch block Abnormal ECG When compared with ECG of 31-AUG-2020 10:43, Sinus rhythm has replaced Atrial flutter Confirmed by Angel Ybarra ([id number]) on 09/01/2020 6:30:01 AM Referred By: Parviz Sears Confirmed By:Angel Ybarra
[2020-09-01 06:39] LABS: BUN Creatinine Ratio 22.1 (10-20); Calcium 9.4 mg/dl (8.5-10.1); Creatinine Clr Calc Pharmacy 169.9 ml/min; Est GFR (African American) 99.2 ml/min; Est GFR (Non-African American) 85.6 ml/min; Magnesium 1.6 mg/dl (1.8-2.4); Potassium 3.7 mmol/L (3.5-5.1)
--- NOTE | 2020-09-01 07:53 | Hospitalist Progress Note ---
Date of Service September 01, 2020 Assessment & Plan (1) Atrial flutter with rapid ventricular response: Secondary to noncompliance with medications/patient ran out of medications Pt is now s/p cardioversion and remained in sinus rhythm overnight - Continue Eliquis - pt reports she has been taking consistently - Received Cardizem 10 mg IV in ED - resumed other meds post-cardioversion as was taking at discharge last month Now resumed metoprolol, amiodarone, losartan, torsemide Close follow-up with cardiology recommended, the appointment is scheduled for September 12 (2) Diabetes mellitus, type 2: - Continue Lantus at bedtime (will start with 40 units HS tonight but may need to increase back to 50) - Hold Metformin while admitted - Sliding scale coverage - Diabetic diet after cardioversion (3) Morbid obesity: (4) Hypertension: Meds as outlined for #1 - BP in ED is high but missed multiple medications over past week. Received cardizem as discussed above (5) Vitamin D deficiency: - Continue oral vitamin D supplement Code Status: Full Code DVT prophylaxis: On Eliquis, add SCDs Admission and Anticipated Discharge Date Admission Date: August 31, 2020 Subjective Patient seen in follow-up of a flutter with RVR Underwent cardioversion yesterday, now remains in sinus rhythm Telemetry reveals sinus rhythm with a left bundle branch block, HR ranging from 70-80 bpm. She is currently sitting up in chair, in no acute distress, feels well Denies any chest pain, palpitations, shortness of breath Discussed medications and close follow-up with cardiology, patient is in understanding and agreement Review of Systems Review of Systems: All systems reviewed & are unremarkable except as noted in HPI & below Constitutional: no fever and no chills Respiratory: no cough and no dyspnea Cardiovascular: no chest pain and no palpitations Gastrointestinal: no abdominal pain, no nausea and no vomiting Physical Exam Physical Exam: Constitutional: WD/WN, + obese; no acute distress Eyes: PERRL, EOMI, conjunctivae normal, anicteric sclerae Neck: trachea midline Respiratory: normal respiratory effort; no respiratory distress and no labored breathing Auscultation: lungs clear to auscultation bilaterally, no wheezing rhonchi or crackles Cardiovascular: Rate/Rhythm: RRR, Extremities: + pedal edema (1+ bilateral pitting); no calf tenderness Gastrointestinal (Abdomen): Inspection/Auscultation: normal bowel sounds; abdomen not distended Percussion/Palpation: abdomen soft, obese; abdomen nontender Musculoskeletal: Head/Neck/Chest: normocephalic, head atraumatic and neck supple Skin: normal turgor; no jaundice dry flaking skin on feet bilaterally Neurologic: moves all extremities; no focal motor deficits Psychiatric: A+Ox3, euthymic affect Results & Data Results & Data ([facility]) Vital Signs (Past 12 Hours) Vital Signs Temp Pulse Resp BP Pulse Ox 09/01/20 03:00 36.9 C 78 16 121/81 93 08/31/20 23:08 36.7 C 80 16 118/77 92 Laboratory Results 09/01/20 09/01/20 08/31/20 Range/Units 05:33 05:33 20:13 WBC 10.86 H (4.8-10.8) K/uL RBC 4.51 (4.2-5.4) M/uL Hgb 12.8 (12.0-16.0) g/dL Hct 38.2 (37-47) % MCV 84.7 (80-100) fL MCH 28.4 (25-34) pg MCHC 33.5 (32-36) g/dL RDW Std Deviation 42.6 (36.4-46.3) fL RDW Coeff of Nancy 13.9 (11.5-14.5) % Plt Count 212 (130-400) K/uL MPV 11.5 H (7.4-10.4) fL Immature Gran % (Auto) 0.6 % Neut % (Auto) 63.5 % Lymph % (Auto) 25.5 % Granite % (Auto) 7.1 % Eos % (Auto) 2.7 % Baso % (Auto) 0.6 % Neut # (Auto) 6.90 H (1.4-6.5) K/uL Lymph # (Auto) 2.77 (1.2-3.4) K/uL Granite # (Auto) 0.77 H (0.11-0.59) K/uL Eos # (Auto) 0.29 (0-0.5) K/uL Baso # (Auto) 0.07 (0-0.2) K/uL Immature Gran # (Auto) 0.06 H (0.00-0.02) K/uL Sodium 143 (136-145) mmol/L Potassium 3.7 (3.5-5.1) mmol/L Chloride 107 (98-107) mmol/L Carbon Dioxide 31 (21-32) mmol/L Anion Gap 5.0 (3-11) BUN 17 (7-18) mg/dl Creatinine 0.78 (0.6-1.2) mg/dl Est Cr Clr Drug Dosing 169.9 ml/min Est GFR ( Amer) 99.2 ml/min Est GFR (Non-Af Amer) 85.6 ml/min BUN/Creatinine Ratio 22.1 H (10-20) Glucose 134 H (70-99) mg/dl POC Glucose 157 H (70-99) mg/dl Calcium 9.4 (8.5-10.1) mg/dl Magnesium 1.6 L (1.8-2.4) mg/dl Troponin I (0-0.045) ng/ml Lipase (73-393) U/L COVID-19 Eval Order SARS-CoV-2, RNA, NAAT (NEGATIVE) 08/31/20 08/31/20 08/31/20 Range/Units 16:22 10:55 10:55 WBC (4.8-10.8) K/uL RBC (4.2-5.4) M/uL Hgb (12.0-16.0) g/dL Hct (37-47) % MCV (80-100) fL MCH (25-34) pg MCHC (32-36) g/dL RDW Std Deviation (36.4-46.3) fL RDW Coeff of Nancy (11.5-14.5) % Plt Count (130-400) K/uL MPV (7.4-10.4) fL Immature Gran % (Auto) % Neut % (Auto) % Lymph % (Auto) % Granite % (Auto) % Eos % (Auto) % Baso % (Auto) % Neut # (Auto) (1.4-6.5) K/uL Lymph # (Auto) (1.2-3.4) K/uL Granite # (Auto) (0.11-0.59) K/uL Eos # (Auto) (0-0.5) K/uL Baso # (Auto) (0-0.2) K/uL Immature Gran # (Auto) (0.00-0.02) K/uL Sodium (136-145) mmol/L Potassium (3.5-5.1) mmol/L Chloride (98-107) mmol/L Carbon Dioxide (21-32) mmol/L Anion Gap (3-11) BUN (7-18) mg/dl Creatinine (0.6-1.2) mg/dl Est Cr Clr Drug Dosing ml/min Est GFR ( Amer) ml/min Est GFR (Non-Af Amer) ml/min BUN/Creatinine Ratio (10-20) Glucose (70-99) mg/dl POC Glucose 205 H (70-99) mg/dl Calcium (8.5-10.1) mg/dl Magnesium (1.8-2.4) mg/dl Troponin I (0-0.045) ng/ml Lipase (73-393) U/L COVID-19 Eval Order Covid19 [facility] SARS-CoV-2, RNA, NAAT NEGATIVE (NEGATIVE) 08/31/20 08/31/20 Range/Units 10:55 10:55 WBC 11.24 H (4.8-10.8) K/uL RBC 4.90 (4.2-5.4) M/uL Hgb 14.0 (12.0-16.0) g/dL Hct 41.1 (37-47) % MCV 83.9 (80-100) fL MCH 28.6 (25-34) pg MCHC 34.1 (32-36) g/dL RDW Std Deviation 40.8 (36.4-46.3) fL RDW Coeff of Nancy 13.6 (11.5-14.5) % Plt Count 229 (130-400) K/uL MPV 12.2 H (7.4-10.4) fL Immature Gran % (Auto) 0.9 % Neut % (Auto) 69.4 % Lymph % (Auto) 19.5 % Granite % (Auto) 6.4 % Eos % (Auto) 3.1 % Baso % (Auto) 0.7 % Neut # (Auto) 7.80 H (1.4-6.5) K/uL Lymph # (Auto) 2.19 (1.2-3.4) K/uL Granite # (Auto) 0.72 H (0.11-0.59) K/uL Eos # (Auto) 0.35 (0-0.5) K/uL Baso # (Auto) 0.08 (0-0.2) K/uL Immature Gran # (Auto) 0.10 H (0.00-0.02) K/uL Sodium 141 (136-145) mmol/L Potassium 3.9 (3.5-5.1) mmol/L Chloride 106 (98-107) mmol/L Carbon Dioxide 28 (21-32) mmol/L Anion Gap 7.0 (3-11) BUN 14 (7-18) mg/dl Creatinine 0.84 (0.6-1.2) mg/dl Est Cr Clr Drug Dosing 100.5 ml/min Est GFR ( Amer) 90.7 ml/min Est GFR (Non-Af Amer) 78.2 ml/min BUN/Creatinine Ratio 16.2 (10-20) Glucose 242 H (70-99) mg/dl POC Glucose (70-99) mg/dl Calcium 9.5 (8.5-10.1) mg/dl Magnesium 1.4 L (1.8-2.4) mg/dl Troponin I < 0.015 (0-0.045) ng/ml Lipase 93 (73-393) U/L COVID-19 Eval Order SARS-CoV-2, RNA, NAAT (NEGATIVE) Medications Administered Current Inpatient Medications Acetaminophen (Acetaminophen 325 Mg Tab) 650 mg PO Q4H PRN PRN Reason: Pain or Fever Stop: 09/30/20 13:34 Amiodarone HCl (Amiodarone 200 Mg Tab) 200 mg PO QAM JUAN Stop: 10/01/20 08:59 Apixaban (Apixaban 5 Mg Tablet) 5 mg PO BID UJAN Stop: 09/30/20 20:59 Last Admin: 08/31/20 21:49 Dose: 5 mg Documented by: Cyanocobalamin (Cyanocobalamin 500 Mcg Tablet (Vitamin B-12)) 1,000 mcg PO QAM JUAN Stop: 10/01/20 08:59 Dextrose (Dextrose 50% 50 Ml Syringe) 25 - 50 ml IV UD PRN; Protocol PRN Reason: Hypoglycemia Protocol Stop: 09/30/20 13:34 Glucagon (Glucagon For Inj 1 Mg Vial) 1 mg SQ UD PRN; Protocol PRN Reason: Hypoglycemia Protocol Stop: 09/30/20 13:34 Glucose (Glucose 10 Tabs/Tube) 4 - 8 tabs PO UD PRN; Protocol PRN Reason: Hypoglycemia Protocol Stop: 09/30/20 13:34 Glucose (Glucose 40% Gel 15 Gm Tube) 15 - 30 gm PO UD PRN; Protocol PRN Reason: Hypoglycemia Protocol Stop: 09/30/20 13:34 Magnesium Sulfate/Dextrose (Magnesium Sulfate / D5w) 1 gm in 100 mls @ 50 mls/hr IV ONE ONE Stop: 09/01/20 09:49 Insulin Aspart (Insulin Aspart 100 Units/Ml 3 Ml Pen) 0 units SC ACHS [facility] Stop: 09/30/20 16:29 Last Admin: 08/31/20 21:50 Dose: Not Given Documented by: Insulin Glargine (Insulin Glargine Solostar 100 Units/Ml 3 Ml Pen) 40 units SC [facility] Stop: 09/30/20 20:59 Last Admin: 08/31/20 21:50 Dose: 40 units Documented by: Losartan Potassium (Losartan Potassium 25 Mg Tab) [facility] [place] Stop: 10/01/20 08:59 Metoprolol Succinate (Metoprolol Succ 50mg Ext Rel Tab) [facility] [place] Stop: 10/01/20 08:59 Miscellaneous (Carbohydrates For Hypoglycemia ) 15 - 30 gm PO UD PRN PRN Reason: Hypoglycemia Protocol Stop: 09/30/20 13:34 Pantoprazole Sodium (Pantoprazole 40 Mg Tab) [facility] [place] Stop: 10/01/20 08:59 Potassium Chloride (Potassium Chloride Crtab 20 Meq Tabcr) 20 meq [facility] [place] Stop: 10/01/20 08:59 Torsemide (Torsemide 20 Mg Tab) [facility] [place] Stop: 10/01/20 08:59 Vitamin D (Cholecalciferol 1,000 Units 25 Mcg Tab) 1,000 [facility] [place] Stop: 10/01/20 08:59 (1) Diabetes mellitus, type 2 Diabetes mellitus care home insulin use: with care home use (2) Hypertension Hypertension type: unspecified Qualified Code(s): I10 - Essential (primary) hypertension
[2020-09-01] MEDS: INSULIN ASPART 100 UNITS/ML 3 ML PEN SC SCH (08:15)
[2020-09-01] MEDS: APIXABAN 5 MG TABLET PO SCH (08:15)
[2020-09-01] MEDS ORDERED: MAGNESIUM SULFATE / D5W 1 GM/100 ML BAG IV ONE (08:45)
[2020-09-01] MEDS ORDERED: METOPROLOL SUCC 50MG EXT REL TAB PO SCH (09:00)
[2020-09-01] MEDS ORDERED: PANTOprazole 40 MG TAB PO SCH (09:00)
[2020-09-01] MEDS ORDERED: TORSEMIDE 20 MG TAB PO SCH (09:00)
[2020-09-01] MEDS ORDERED: CYANOCOBALAMIN 500 MCG TABLET (VITAMIN B-12) PO SCH (09:00)
[2020-09-01] MEDS ORDERED: AMIODARONE 200 MG TAB PO SCH (09:00)
[2020-09-01] MEDS ORDERED: MAGNESIUM OXIDE 400 MG TAB PO SCH (09:00)
[2020-09-01] MEDS ORDERED: CHOLECALCIFEROL 1,000 UNITS 25 MCG TAB PO SCH (09:00)
[2020-09-01] MEDS ORDERED: LOSARTAN POTASSIUM 25 MG TAB PO SCH (09:00)
[2020-09-01] MEDS ORDERED: POTASSIUM CHLORIDE CRTAB 20 MEQ TABCR PO SCH (09:00)
--- NOTE | 2020-09-01 09:19 | Cardiology Progress Note ---
Date of Service September 01, 2020 Assessment & Plan (1) Atrial flutter: Secondary to noncompliance with amiodarone. Successful external direct- current cardioversion performed 08/31/2020. Amiodarone restarted. Continue Toprol-XL 50 mg daily and Eliquis 5 mg twice daily. (2) Severe left ventricular systolic dysfunction: Chest x-ray clear on admission. Torsemide restarted. Restart losartan 25 mg daily. Monitor daily weight. Take an additional 20 mg of torsemide if weight increases more than 2 pounds in a 48-hour period, or 5 pounds in 1 week. Patient improved clinically status post cardioversion. Discussed importance of compliance with cardiovascular medical therapies. Outpatient cardiology follow- up schedule 09/12/2020. Admission and Anticipated Discharge Date Admission Date: August 31, 2020 Subjective Patient seen and examined at the bedside. Remains in sinus rhythm overnight. Telemetry reveals sinus rhythm with a left bundle branch block. Heart rate ranging from 70-80 bpm. Feeling much better today. Denies chest pain or shortness of breath. No orthopnea, PND, or edema. Requesting discharge. Review of Systems Review of Systems: All systems reviewed & are unremarkable except as noted in Subjective Physical Exam Constitutional: well developed, well nourished and + obese Respiratory: normal respiratory effort; no respiratory distress and no labored breathing Auscultation: lungs clear to auscultation bilaterally; no crackles, no rales, no rhonchi and no wheezes Cardiovascular: Rate/Rhythm: regular rate and regular rhythm Heart Sounds: normal S1 and normal S2 Vessels: no JVD Extremities: + edema (1+ bilateral pedal edema) Gastrointestinal (Abdomen): Inspection/Auscultation: abdomen normal to inspection and normal bowel sounds; abdomen not distended Percussion/Palpation: abdomen soft; abdomen nontender, no guarding and abdomen not rigid Neurologic: CN's II-XI intact bilaterally Motor/Sensory: no tremor Psychiatric: A+Ox3, euthymic affect Results & Data ([facility]) Vital Signs (Past 12 Hours) Vital Signs Temp Pulse Resp BP Pulse Ox 09/01/20 07:57 36.2 C L 82 20 149/60 H 94 09/01/20 03:00 36.9 C 78 16 121/81 93 08/31/20 23:08 36.7 C 80 16 118/77 92 (1) Atrial flutter Atrial flutter type: atypical Qualified Code(s): I48.4 - Atypical atrial flutter
--- NOTE | 2020-09-01 09:45 | Discharge Summary ---
Date of Service September 01, 2020 Admission HPI Per Admitting Provider This is a 55 y/o female with a PMH of atrial flutter, dilated cardiomyopathy with severe LV dysfunction (EF ~20%), insulin-requiring DM, HTN, GERD, and dyslipidemia who presents to the ED today after being referred from her cardiology office where she presented with recurrent fluttering in her chest and dyspnea on exertion that started this morning. Pt was recently admitted to [facility] (in July) with atrial flutter with RVR and heart failure. She underwent RODGER- guided cardioversion during that admission and was discharged on a regimen that included losartan 25 mg daily, metoprolol succinate 50 mg in AM, torsemide 20 mg daily, potassium 20 mEq daily, amiodarone 200 mg daily in AM, and Eliquis 5 mg BID. Unfortunately, she ran out of all of these medications about a week ago. Since only Eliquis had a refill on the prescription, this is the only medication of these that she has continued to take. When on all of these medications, she reported feeling well. A few days ago, she noticed some recurrent pedal edema in the evenings that would resolve with putting her feet up overnight. It has gradually become more persistent, specifically today. This morning, pt went to walk out to her car and noticed a brief flutter in her chest that resolved quickly. This happened 2-3 more times in the 15 minutes that she was driving her daughter to work. When she got home and climbed a flight of steps, the fluttering became more persistent and she became short of breath. The symptoms resolved with rest but recurred when pt got her shower. She called her cardiology office and was evaluated there this morning. She was found to be in atrial flutter with RVR and referred to the ED. Currently, resting in bed, she is feeling well. No fluttering in her chest since she walked in from the parking lot. She denies fevers, chills, chest pain, syncope, lightheadedness, unusual fatigue, N/V, or urinary symptoms. She has noted a dry cough and itchy throat recently that she relates to allergies. Two days ago, she also had transient abdominal cramping and loose stools but this has since resolved. Admission Exam Per Admitting Provider Constitutional: WD/WN, vitals as above + obese; no acute distress Eyes: PERRL, conjunctivae normal, anicteric sclerae Neck: trachea midline Respiratory: normal respiratory effort; no respiratory distress and no labored breathing Auscultation: lungs clear to auscultation bilaterally Cardiovascular: Rate/Rhythm: + tachycardic (and irregular) Vessels: no carotid bruit Extremities: + pedal edema (2+ bilateral pitting); no calf tenderness Gastrointestinal (Abdomen): Inspection/Auscultation: normal bowel sounds; abdomen not distended Percussion/Palpation: abdomen soft; abdomen nontender Musculoskeletal: Head/Neck/Chest: normocephalic, head atraumatic and neck supple Skin: normal turgor; no jaundice dry flaking skin on feet bilaterally Neurologic: moves all extremities; no focal motor deficits Psychiatric: A+Ox3, euthymic affect Principal Diagnosis Atrial flutter with RVR Severe left ventricular systolic dysfunction LBBB Discharge Exam Constitutional: WD/WN, + obese; no acute distress Eyes: PERRL, EOMI, conjunctivae normal, anicteric sclerae Neck: trachea midline Respiratory: normal respiratory effort; no respiratory distress and no labored breathing Auscultation: lungs clear to auscultation bilaterally, no wheezing rhonchi or crackles Cardiovascular: Rate/Rhythm: RRR, Extremities: + pedal edema (1+ bilateral pitting); no calf tenderness Gastrointestinal (Abdomen): Inspection/Auscultation: normal bowel sounds; abdomen not distended Percussion/Palpation: abdomen soft, obese; abdomen nontender Musculoskeletal: Head/Neck/Chest: normocephalic, head atraumatic and neck supple Skin: normal turgor; no jaundice dry flaking skin on feet bilaterally Neurologic: moves all extremities; no focal motor deficits Psychiatric: A+Ox3, euthymic affect Discharge Data Allergies Allergy/AdvReac Type Severity Reaction Status Date / Time lisinopril Allergy Severe Anaphylaxis Verified 08/31/20 11:13 atorvastatin Allergy Intermediate Hives - Unverified 08/31/20 11:13 itchy Consultations 08/31/20 10:52 ED Decision to Admit Stat 08/31/20 11:08 Consult Cardiology Routine 08/31/20 12:11 Consult Anesthesiology Routine Procedures Performed Operation Date: 08/31/20 13:00 Actual Procedures p Cardioversion - Parviz Sears DO Hospital Course (1) Atrial flutter with rapid ventricular response: Secondary to noncompliance with medications/patient ran out of medications Pt is now s/p cardioversion and remained in sinus rhythm overnight - Continue Eliquis - pt reports she has been taking consistently - Received Cardizem 10 mg IV in ED - resumed other meds post-cardioversion as was taking at discharge last month Now resumed metoprolol, amiodarone, losartan, torsemide Close follow-up with cardiology recommended, the appointment is scheduled for September 12 (2) Diabetes mellitus, type 2: - Continue Lantus at bedtime (will start with 40 units HS tonight but may need to increase back to 50) - Hold Metformin while admitted - Sliding scale coverage - Diabetic diet after cardioversion (3) Morbid obesity: (4) Hypertension: Meds as outlined for #1 - BP in ED is high but missed multiple medications over past week. Received cardizem as discussed above (5) Vitamin D deficiency: - Continue oral vitamin D supplement Total Time Total Time Spent Total Time Spent (In Minutes): 35 Total Time Includes: Examination of the Patient, Discharge Planning, Medication Reconciliation and Communication With Other Providers Discharge Plan Discharge Items Patient Disposition: Home - Self-Care Reason For Visit: ATRIAL FLUTTER Discharge Diagnosis: Atrial flutter with RVR Severe left ventricular systolic dysfunction LBBB Activity: Per Instructions section Non-emergency contact: Primary Care Provider and [place] [facility] Call non-emergency contact if: you have any medication questions and your symptoms worsen Follow-up/Referrals: Zulma Tripp DO [Primary Care Provider] - Diet: Carb Consistent or DM2, Heart Healthy and Low Sodium (2gm) Addtl Attending Provider Instructions: Follow-up with your primary care doctor and a heavy equipment technician. The appointment with cardiology was already set up for you, for September 12. Continue taking your prescribed medications, amiodarone and metoprolol for your heart rate, losartan and torsemide for your blood pressure and fluid management, potassium and magnesium supplement. Make sure to continue taking your Eliquis (blood thinner ) as well. Please bring your medications to your follow-up appointments with your healthcare providers for review. If you have any questions at any time about your medications please contact your family doctor's office or your heavy equipment technician's office either via phone or portal. Monitor your daily weight. Take an additional 20 mg of torsemide if weight increases more than 2 pounds in a 48-hour period, or 5 pounds in 1 week. Pending Studies at Discharge: No Stand-Alone Forms: My [facility], Smoking Cessation Medications and DC Order Prescriptions: New losartan 25 mg Tablet 25 mg PO QAM Qty: 30 RF: 0 amiodarone 200 mg Tablet 200 mg PO QAM Qty: 30 RF: 0 metoprolol succinate 50 mg Tablet Extended Release 24 Hr 50 mg PO QAM Qty: 30 RF: 0 torsemide 20 mg Tablet 20 mg PO QAM Qty: 30 RF: 0 magnesium oxide 400 mg (241.3 mg magnesium) Tablet 400 mg PO QAM Qty: 20 RF: 0 potassium chloride [Klor-Con M20] 20 mEq Tablet,Er Particles/Crystals 20 meq PO QAM 30 Days Qty: 30 RF: 0 Continued metformin 1,000 mg Tablet 1,000 mg PO BID RF: 0 Lantus U-100 Insulin 100 unit/mL solution 50 unit SUBCUT HS RF: 0 losartan 25 mg tablet 25 mg PO QAM RF: 0 cyanocobalamin (vitamin B-12) 1,000 mcg Tablet 1,000 mcg PO QAM RF: 0 cholecalciferol (vitamin D3) 25 mcg (1,000 unit) Capsule 25 mcg PO QAM RF: 0 omeprazole magnesium [Prilosec OTC] 20 mg Tablet,Delayed Release (Dr/Ec) 20 mg PO QAM RF: 0 Eliquis 5 mg Tablet 5 mg PO BID 30 Days Qty: 60 RF: 2 Discharge Orders: Discharge Order (Routine); Ordered 09/01/20 Ordered By: Daniel Mcadams Admission Data Admit Date/Time: 08/31/20 11:08 Attending Provider: Daniel Mcadams Admit Provider: Daniel Mcadams Primary Care Provider: Zulma Tripp Other Providers: Parviz Sears ; Daniel Mcadams ; Anil Ly
--- NOTE | 2020-09-01 16:43 | Electrocardiogram Report ---
Test Reason : Blood Pressure : / mmHG Vent. Rate : 130 BPM Atrial Rate : 260 BPM P-R Int : 000 ms QRS Dur : 138 ms QT Int : 368 ms P-R-T Axes : 252 -48 131 degrees QTc Int : 541 ms Atrial flutter with 2:1 A-V conduction Left axis deviation Left bundle branch block Abnormal ECG When compared with ECG of 31-AUG-2020 10:43, No significant change was found Confirmed by Niko Monahan ([id number]) on 09/01/2020 4:43:04 PM Referred By: Parviz Sears Confirmed By:Chris Monahan
== END 2020-09-01 10:29 | disposition home or self-care (01) | DRG 309 ==
LOC: ED 10:29 → 2S 11:08

== ENCOUNTER 2021-11-28 17:34 | Inpatient (IN) ==
[2021-11-28] MEDS ORDERED: SODIUM CHLORIDE 0.9% 1000ML 1,000 ML IV STA (18:12)
[2021-11-28 19:23] LABS: Basophils # (auto) 0.08 K/uL (0-0.2); Basophils % (auto) 0.8 %; Eosinophils # (auto) 0.11 K/uL (0-0.50); Eosinophils % (auto) 1.1 %; Hematocrit (blood only) 37.6 % (34.1-44.9); Hemoglobin 12.8 g/dl (12.0-16.0); Immature Granulocytes # (auto) 0.07 K/uL (0.00-0.02); Immature Granulocytes % (auto) 0.7 %; Lymphocytes # (auto) 2.02 K/uL (1.2-3.4); Lymphocytes % (auto) 19.6 %; Mean Corpuscular Hemoglobin 30.4 pg (25.0-34.0); Mean Corpuscular Volume 89.3 fL (80.0-100.0); Mean Platelet Volume 12.7 fL (9.4-12.3); Monocytes # (auto) 0.82 K/uL (0.24-0.82); Neutrophils % (auto) 69.8 %; Platelet Count 247 K/uL (130-400); RDW Coefficient of Variation 12.2 % (11.5-14.5); RDW Standard Deviation 39.8 fL (36.4-46.3); Red Blood Count 4.21 M/uL (3.93-5.22)
[2021-11-28 19:30] LABS: Appearance Urine Turbid (Clear); Bilirubin Urine Negative (Negative); Blood Urine 3+ (Negative); Color Urine Yellow; Glucose Urine UA 3+ (Negative); Ketones Urine Negative (Negative); Leukocyte Esterase Urine 2+ (Negative); Nitrite Urine Negative (Negative); Protein Urine 1+ (Negative); Specific Gravity Urine 1.015 (1.000-1.030); Urobilinogen Urine Negative (Negative)
[2021-11-28 19:46] LABS: Bacteria Urine Automated 2+ (Negative); Cast Urine Automated 0 /lpf (0-5); Epithelial Cell Urine Auto 0-5 /lpf (0-5); WBC Urine Automated >30 /hpf (0-5)
[2021-11-28 21:01] LABS: Albumin Globulin Ratio 1.1 (0.9-2); BUN Creatinine Ratio 10.8 (10-20); Bilirubin,Total 0.5 mg/dl (0.2-1.0); Calcium 9.2 mg/dl (8.5-10.1); Creatinine Clr Calc Pharmacy 21.3 ml/min; Est GFR (African American) 13.8 ml/min; Est GFR (Non-African American) 11.9 ml/min; Globulin 3.5 gm/dl (2.5-4.0); Potassium 3.2 mmol/L (3.5-5.1); Total Protein 7.5 gm/dl (6.0-8.3)
[2021-11-28 21:02] LABS: Troponin I High Sensitivity 10.8 pg/ml (0-14)
[2021-11-28] MEDS ORDERED: cefTRIAXone SODIUM 2,000 MG/70 ML BAG IV STA (21:12)
[2021-11-28] MEDS ORDERED: NORMOSOL-R 2,000 ML IV ONE (21:15)
[2021-11-28] MEDS ORDERED: DEXTROSE 50% 50 ML SYRINGE IV PRN (21:15)
[2021-11-28] MEDS ORDERED: INSULIN REGULAR 250 UNITS in SODIUM CHLORIDE 0.9% 247.5 ML IV SCH (21:15)
[2021-11-28] MEDS ORDERED: GLUCOSE 40% GEL 15 GM TUBE PO PRN (21:15)
[2021-11-28] MEDS ORDERED: GLUCAGON FOR INJ 1 MG VIAL SQ PRN (21:15)
[2021-11-28] MEDS ORDERED: GLUCOSE 10 TAB/TUBE PO PRN (21:15)
[2021-11-28] MEDS ORDERED: STAT INSULIN DRIP STA (21:15)
[2021-11-28] MEDS ORDERED: CARBOHYDRATES FOR HYPOGLYCEMIA PO PRN (21:15)
--- NOTE | 2021-11-28 21:19 | Emergency Department Note ---
Impression & Plan Acute hyperglycemia, HTN (hypertension), UTI (urinary tract infection), Hypokalemia ED Provider Note NAME: GURINDER ASCENCIO AGE: 56 SEX: F : 1965 ARRIVES VIA: Walk-In INFORMANT: Patient ED PROVIDER(S): Eliceo Muñoz DO CHIEF COMPLAINT: weakness HPI: Patient is a 56-year-old female with a past medical history of morbid obesity, atrial flutter, CHF who presents to the ER for abnormal blood work referred in by her PCP. She has not been feeling well and has not taken her insulin as she ran out about a week ago. She had blood work checked and was referred in due to her renal failure. She admits to some nausea. No dysuria, urgency, or frequency. No other exacerbating or remitting factors. No headaches or change in vision. No chest pain or shortness of breath. ROS: See above HPI for pertinent positives & negatives. A total of 10 systems reviewed and were otherwise negative. PAST MEDICAL HISTORY:See Below PAST SURGICAL HISTORY:See Below FAMILY HISTORY:See Below SOCIAL HISTORY:See Below HOME MEDICATIONS:See Below ALLERGIES:See Below VITALS:See Below PHYSICAL EXAMINATION: GENERAL: Sitting up in bed, alert, Chronically ill-appearing, disheveled EYE EXAM: normal conjunctiva. OROPHARYNX: Dry mucous membrane LUNGS: Clear to auscultation. Normal chest wall mechanics HEART: no murmurs, S1 normal and S2 normal ABDOMEN: abdomen soft, non-tender, normo-active bowel sounds, no masses, no rebound or guarding. UPPER EXTREMITIES: upper extremities are grossly normal. LOWER EXTREMITIES: Pitting edema NEURO EXAM: Normal sensorium, cranial nerves II-XII grossly intact, normal speech, no gross weakness of arms, no gross weakness of legs. MEDICAL DECISION MAKING: Patient is a 56-year-old female who presents ER for above-stated complaint. IV was established blood work was obtained. Labs show no significant leukocytosis or anemia. BMP shows a hyperglycemia combination with a hypokalemia.Magnesium was low at 1.4. Troponin was negative. Lipase unremarkable. UA does suggest a UTI.Patient was placed on insulin drip and given IV fluids as well as IV antibiotics. She was updated bedside. Discussed with the hospitalist for further evaluation Dr. Juan Manuel Matos.She was ordered 2 L normal stool but instructed nursing staff to only give 1-2 CHF and LV dysfunction. Triage Nursing notes reviewed. Limited review of prior medical records performed Vital Signs: reviewed and remarkable for Hypertensive Differential diagnosis: Infection, dehydration, metabolic abnormality, hypo/hyperglycemia, electrolyte disturbance, anemia, hypoxia, cardiac sources, intracerebral event, toxicologic, neurologic, as well as other pathologies. ER treatment provided: See below Diagnostics interpreted by me: Cardiac Monitoring: An order was placed for continuous cardiac monitoring. The monitor shows a rate of 70 with sinus rhythm. Laboratory studies: As stated above and show below. Imaging studies: See below Consultation(s): Discussed with Dr. Matos for further evaluation Procedures: none Critical Care: None Past Med/Surg History Medical History Diabetes mellitus, type 2 IDDM GERD (gastroesophageal reflux disease) History of nephrolithiasis Hyperlipidemia Hypertension Kidney stones Morbid obesity Spinal stenosis Vitamin D deficiency Surgical History History of section x2 History of cholecystectomy History of nephrolithotomy with removal of calculi History of tonsillectomy Hx of cystoscopy with stone extraction Status post cystoscopy with ureteral stent placement most recent cystoscopy 11/07/19 [place] Family History Mother Pancreatic cancer Diabetes Bilateral kidney stones Sister Bilateral kidney stones Hypertension Father Heart disease Brother Bilateral kidney stones Other No family history of adverse response to anesthesia Social History Smoking Status: Never smoker Second Hand Exposure: No; Hx Alcohol Use: No Hx Substance Use: No Preferred Language: Sami Communication Ability: Effective Visual Impairment: No Limitations Wood Room Hand Required: No Beliefs That Will Affect Care: None Current Living Situation: Alone Feels Safe at Home: Yes Assistive Devices: None Allergies Allergies Allergy/AdvReac Type Severity Reaction Status Date / Time lisinopril Allergy Severe Anaphylaxis Verified 11/28/21 21:24 atorvastatin Allergy Intermediate Hives - Verified 11/28/21 21:24 itchy Home Meds Home Medications Medication Instructions Recorded Confirmed metformin 1,000 mg tablet 1,000 mg PO BID 10/21/19 11/28/21 cholecalciferol (vitamin D3) 25 25 mcg PO QAM 07/17/20 11/28/21 mcg (1,000 unit) capsule cyanocobalamin (vitamin B-12) 1,000 mcg PO QAM 07/17/20 11/28/21 1,000 mcg tablet omeprazole magnesium 20 mg 20 mg PO QAM 07/17/20 11/28/21 tablet,delayed release (Prilosec OTC) insulin glargine-yfgn 100 unit/mL 50 unit subcut HS 11/28/21 11/28/21 (3 mL) subcutaneous pen (Semglee (insulin glargine-yfgn) Pen) spironolactone 25 mg tablet 12.5 mg PO QAM 11/28/21 11/28/21 torsemide 20 mg tablet See Rx Instructions .Route .COMPLEX 11/28/21 11/28/21 Previous Rx's Medication Instructions Recorded apixaban 5 mg tablet (Eliquis) 5 mg PO BID 30 days #60 tabs 07/22/20 amiodarone 200 mg tablet 200 mg PO QAM #30 tabs 09/01/20 losartan 25 mg tablet 25 mg PO QAM #30 tabs 09/01/20 metoprolol succinate 50 mg 50 mg PO QAM #30 tabs 09/01/20 tablet,extended release 24 hr Results & Data (ED) Vital Signs Vital Signs - 24 hr 11/28/21 18:11 11/28/21 21:45 11/28/21 22:10 Temperature 36.1 C L Temperature Source Temporal Artery Scan Pulse Rate 80 Pulse Rate [Apical] 70 70 Pulse Rate from SpO2 Sensor Respiratory Rate 18 23 16 Respiratory Effort / Characteristics Non-Labored Spontaneous Respiratory Depth Normal Normal Respiratory Pattern Regular Blood Pressure 197/96 H Blood Pressure [Right Arm] 180/90 H 155/82 H Blood Pressure Mean 129 Blood Pressure Mean [Right Arm] 120 106 Blood Pressure Position Sitting Pulse Oximetry 98 98 95 Oxygen Delivery Method Room Air Room Air Room Air Sepsis Recent Fever Within 48 Hours No Sepsis New/Unexplained Change in Mental Status No Sepsis Action Taken by Nursing No Action Required 11/28/21 21:30 11/28/21 21:45 11/28/21 21:45 Temperature Temperature Source Pulse Rate 71 73 Pulse Rate [Apical] Pulse Rate from SpO2 Sensor 70 74 Respiratory Rate 28 H 13 Respiratory Effort / Characteristics Respiratory Depth Respiratory Pattern Blood Pressure 180/90 H Blood Pressure [Right Arm] Blood Pressure Mean 120 Blood Pressure Mean [Right Arm] Blood Pressure Position Pulse Oximetry 96 94 Oxygen Delivery Method Sepsis Recent Fever Within 48 Hours Sepsis New/Unexplained Change in Mental Status Sepsis Action Taken by Nursing 11/28/21 22:00 11/28/21 22:00 11/28/21 22:30 Temperature Temperature Source Pulse Rate 69 Pulse Rate [Apical] Pulse Rate from SpO2 Sensor 69 Respiratory Rate 21 Respiratory Effort / Characteristics Respiratory Depth Respiratory Pattern Blood Pressure 155/82 H 164/77 H Blood Pressure [Right Arm] Blood Pressure Mean 106 106 Blood Pressure Mean [Right Arm] Blood Pressure Position Pulse Oximetry 96 Oxygen Delivery Method Sepsis Recent Fever Within 48 Hours Sepsis New/Unexplained Change in Mental Status Sepsis Action Taken by Nursing 11/28/21 22:30 11/28/21 23:00 11/28/21 23:00 Temperature Temperature Source Pulse Rate 69 69 Pulse Rate [Apical] Pulse Rate from SpO2 Sensor 68 69 Respiratory Rate 14 13 Respiratory Effort / Characteristics Respiratory Depth Respiratory Pattern Blood Pressure 166/85 H Blood Pressure [Right Arm] Blood Pressure Mean 112 Blood Pressure Mean [Right Arm] Blood Pressure Position Pulse Oximetry 96 97 Oxygen Delivery Method Sepsis Recent Fever Within 48 Hours Sepsis New/Unexplained Change in Mental Status Sepsis Action Taken by Nursing 11/28/21 23:30 11/28/21 23:31 11/28/21 23:31 Temperature Temperature Source Pulse Rate 69 71 Pulse Rate [Apical] Pulse Rate from SpO2 Sensor 69 71 Respiratory Rate 15 16 Respiratory Effort / Characteristics Respiratory Depth Respiratory Pattern Blood Pressure 157/77 H Blood Pressure [Right Arm] Blood Pressure Mean 103 Blood Pressure Mean [Right Arm] Blood Pressure Position Pulse Oximetry 97 97 Oxygen Delivery Method Sepsis Recent Fever Within 48 Hours Sepsis New/Unexplained Change in Mental Status Sepsis Action Taken by Nursing 11/29/21 00:00 11/28/21 22:00 Temperature Temperature Source Pulse Rate 69 Pulse Rate [Apical] 72 Pulse Rate from SpO2 Sensor 69 Respiratory Rate 16 12 Respiratory Effort / Characteristics Respiratory Depth Respiratory Pattern Blood Pressure Blood Pressure [Right Arm] 166/85 H Blood Pressure Mean Blood Pressure Mean [Right Arm] 112 Blood Pressure Position Pulse Oximetry 97 96 Oxygen Delivery Method Room Air Sepsis Recent Fever Within 48 Hours Sepsis New/Unexplained Change in Mental Status Sepsis Action Taken by Nursing Laboratory Data Result diagrams: 11/28/21 19:05 11/28/21 19:05 Lab Results 11/28/21 11/28/21 11/28/21 Range/Units 19:05 19:05 19:05 WBC 10.30 (4.8-10.8) K/ul RBC 4.21 (3.93-5.22) M/uL Hgb 12.8 (12.0-16.0) g/dl Hct 37.6 (34.1-44.9) % MCV 89.3 (80.0-100.0) fL MCH 30.4 (25.0-34.0) pg MCHC 34.0 (32.0-36.0) g/dL RDW Std Deviation 39.8 (36.4-46.3) fL RDW Coeff of Nancy 12.2 (11.5-14.5) % Plt Count 247 (130-400) K/uL MPV 12.7 H (9.4-12.3) fL Immature Gran % (Auto) 0.7 % Neut % (Auto) 69.8 % Lymph % (Auto) 19.6 % [place] % (Auto) 8.0 % Eos % (Auto) 1.1 % Baso % (Auto) 0.8 % Neut # (Auto) 7.20 H (1.4-6.5) K/uL Lymph # (Auto) 2.02 (1.2-3.4) K/uL [place] # (Auto) 0.82 (0.24-0.82) K/uL Eos # (Auto) 0.11 (0-0.50) K/uL Baso # (Auto) 0.08 (0-0.2) K/uL Immature Gran # (Auto) 0.07 H (0.00-0.02) K/uL APTT (21.0-31.0) Seconds PTT Ratio VBG pH (7.36-7.41) VBG pCO2 (38-50) mmHg VBG pO2 mmHg VBG HCO3 mmol/L VBG O2 Saturation % VBG Base Excess mEq/L Sodium 132 L (136-145) mmol/L Potassium 3.2 L (3.5-5.1) mmol/L Chloride 89 L (98-107) mmol/L Carbon Dioxide 26 (21-32) mmol/L Anion Gap 17 H (3-11) BUN 43 H (6-23) mg/dl Creatinine 3.97 H (0.6-1.2) mg/dl Est Cr Clr Drug Dosing 21.3 ml/min Est GFR ( Amer) 13.8 ml/min Est GFR (Non-Af Amer) 11.9 ml/min BUN/Creatinine Ratio 10.8 (10-20) Glucose 504 H* (70-99(Fasting)) mg/dl POC Glucose (70-99) mg/dl Calcium 9.2 (8.5-10.1) mg/dl Magnesium 1.4 L (1.7-2.4) mg/dl Total Bilirubin 0.5 (0.2-1.0) mg/dl AST 20 (13-39) U/L ALT 23 (7-52) U/L Alkaline Phosphatase 78 (34-104) U/L Troponin I High Sens 10.8 (0-14) pg/ml Total Protein 7.5 (6.0-8.3) gm/dl Albumin 4.0 (3.4-5.0) gm/dl Globulin 3.5 (2.5-4.0) gm/dl Albumin/Globulin Ratio 1.1 (0.9-2) Lipase 43 (11-82) U/L Urine Color Yellow Urine Appearance Turbid A (Clear) Urine pH 5.0 (4.5-7.5) Ur Specific [place] 1.015 (1.000-1.030) Urine Protein 1+ H (Negative) Urine Glucose (UA) 3+ H (Negative) Urine Ketones Negative (Negative) Urine Blood 3+ H (Negative) Urine Nitrite Negative (Negative) Urine Bilirubin Negative (Negative) Urine Urobilinogen Negative (Negative) Ur Leukocyte Esterase 2+ H (Negative) Urine WBC (Auto) >30 H (0-5) /hpf Urine RBC (Auto) 10-30 H (0-4) /hpf U Hyaline Cast (Auto) 0 (0-5) /lpf U Epithel Cells (Auto) 0-5 (0-5) /lpf Urine Bacteria (Auto) 2+ H (Negative) Urine Yeast Not Reportable SARS-CoV-2, RNA, NAAT (NEGATIVE) 11/28/21 11/28/21 11/28/21 Range/Units 19:07 21:27 22:16 WBC (4.8-10.8) K/ul RBC (3.93-5.22) M/uL Hgb (12.0-16.0) g/dl Hct (34.1-44.9) % MCV (80.0-100.0) fL MCH (25.0-34.0) pg MCHC (32.0-36.0) g/dL RDW Std Deviation (36.4-46.3) fL RDW Coeff of Nancy (11.5-14.5) % Plt Count (130-400) K/uL MPV (9.4-12.3) fL Immature Gran % (Auto) % Neut % (Auto) % Lymph % (Auto) % [place] % (Auto) % Eos % (Auto) % Baso % (Auto) % Neut # (Auto) (1.4-6.5) K/uL Lymph # (Auto) (1.2-3.4) K/uL [place] # (Auto) (0.24-0.82) K/uL Eos # (Auto) (0-0.50) K/uL Baso # (Auto) (0-0.2) K/uL Immature Gran # (Auto) (0.00-0.02) K/uL APTT 26.4 (21.0-31.0) Seconds PTT Ratio 1.0 VBG pH (7.36-7.41) VBG pCO2 (38-50) mmHg VBG pO2 mmHg VBG HCO3 mmol/L VBG O2 Saturation % VBG Base Excess mEq/L Sodium (136-145) mmol/L Potassium (3.5-5.1) mmol/L Chloride (98-107) mmol/L Carbon Dioxide (21-32) mmol/L Anion Gap (3-11) BUN (6-23) mg/dl Creatinine (0.6-1.2) mg/dl Est Cr Clr Drug Dosing ml/min Est GFR ( Amer) ml/min Est GFR (Non-Af Amer) ml/min BUN/Creatinine Ratio (10-20) Glucose (70-99(Fasting)) mg/dl POC Glucose 484 H* (70-99) mg/dl Calcium (8.5-10.1) mg/dl Magnesium (1.7-2.4) mg/dl Total Bilirubin (0.2-1.0) mg/dl AST (13-39) U/L ALT (7-52) U/L Alkaline Phosphatase (34-104) U/L Troponin I High Sens (0-14) pg/ml Total Protein (6.0-8.3) gm/dl Albumin (3.4-5.0) gm/dl Globulin (2.5-4.0) gm/dl Albumin/Globulin Ratio (0.9-2) Lipase (11-82) U/L Urine Color Urine Appearance (Clear) Urine pH (4.5-7.5) Ur Specific [place] (1.000-1.030) Urine Protein (Negative) Urine Glucose (UA) (Negative) Urine Ketones (Negative) Urine Blood (Negative) Urine Nitrite (Negative) Urine Bilirubin (Negative) Urine Urobilinogen (Negative) Ur Leukocyte Esterase (Negative) Urine WBC (Auto) (0-5) /hpf Urine RBC (Auto) (0-4) /hpf U Hyaline Cast (Auto) (0-5) /lpf U Epithel Cells (Auto) (0-5) /lpf Urine Bacteria (Auto) (Negative) Urine Yeast SARS-CoV-2, RNA, NAAT NEGATIVE (NEGATIVE) 11/28/21 11/29/21 Range/Units 23:10 00:04 WBC (4.8-10.8) K/ul RBC (3.93-5.22) M/uL Hgb (12.0-16.0) g/dl Hct (34.1-44.9) % MCV (80.0-100.0) fL MCH (25.0-34.0) pg MCHC (32.0-36.0) g/dL RDW Std Deviation (36.4-46.3) fL RDW Coeff of Nancy (11.5-14.5) % Plt Count (130-400) K/uL MPV (9.4-12.3) fL Immature Gran % (Auto) % Neut % (Auto) % Lymph % (Auto) % [place] % (Auto) % Eos % (Auto) % Baso % (Auto) % Neut # (Auto) (1.4-6.5) K/uL Lymph # (Auto) (1.2-3.4) K/uL [place] # (Auto) (0.24-0.82) K/uL Eos # (Auto) (0-0.50) K/uL Baso # (Auto) (0-0.2) K/uL Immature Gran # (Auto) (0.00-0.02) K/uL APTT (21.0-31.0) Seconds PTT Ratio VBG pH 7.39 (7.36-7.41) VBG pCO2 56 H (38-50) mmHg VBG pO2 38 mmHg VBG HCO3 34 mmol/L VBG O2 Saturation 67.6 % VBG Base Excess 7.1 mEq/L Sodium (136-145) mmol/L Potassium (3.5-5.1) mmol/L Chloride (98-107) mmol/L Carbon Dioxide (21-32) mmol/L Anion Gap (3-11) BUN (6-23) mg/dl Creatinine (0.6-1.2) mg/dl Est Cr Clr Drug Dosing ml/min Est GFR ( Amer) ml/min Est GFR (Non-Af Amer) ml/min BUN/Creatinine Ratio (10-20) Glucose (70-99(Fasting)) mg/dl POC Glucose 478 H* (70-99) mg/dl Calcium (8.5-10.1) mg/dl Magnesium (1.7-2.4) mg/dl Total Bilirubin (0.2-1.0) mg/dl AST (13-39) U/L ALT (7-52) U/L Alkaline Phosphatase (34-104) U/L Troponin I High Sens (0-14) pg/ml Total Protein (6.0-8.3) gm/dl Albumin (3.4-5.0) gm/dl Globulin (2.5-4.0) gm/dl Albumin/Globulin Ratio (0.9-2) Lipase (11-82) U/L Urine Color Urine Appearance (Clear) Urine pH (4.5-7.5) Ur Specific [place] (1.000-1.030) Urine Protein (Negative) Urine Glucose (UA) (Negative) Urine Ketones (Negative) Urine Blood (Negative) Urine Nitrite (Negative) Urine Bilirubin (Negative) Urine Urobilinogen (Negative) Ur Leukocyte Esterase (Negative) Urine WBC (Auto) (0-5) /hpf Urine RBC (Auto) (0-4) /hpf U Hyaline Cast (Auto) (0-5) /lpf U Epithel Cells (Auto) (0-5) /lpf Urine Bacteria (Auto) (Negative) Urine Yeast SARS-CoV-2, RNA, NAAT (NEGATIVE) Administered Medications Insulin Human Regular 250 (units/ Sodium Chloride) 250 mls @ 5.5 mls/hr IV .Q24H JUAN; Protocol Stop: 12/28/21 21:14 Last Titration: 11/29/21 00:24 Dose: 6.6 units/hr, 6.6 mls/hr Documented By: RENAE Co-signed By: SS Admin: 11/28/21 23:09 Dose: 5.5 units/hr, 5.5 mls/hr Documented By: RENAE Co-signed By: Discontinued Medications Amlodipine Besylate (Amlodipine Besylate 5 Mg Tab) 2.5 mg PO NOW ONE Stop: 11/28/21 21:24 Last Admin: 11/28/21 22:00 Dose: 2.5 mg Documented By: LEWIS Hydralazine HCl (Hydralazine Hcl 20 Mg/Ml Vial) 10 mg IV NOW STA Stop: 11/28/21 21:16 Last Admin: 11/29/21 00:26 Dose: Not Given Documented By: RENAE Sodium Chloride (Nss 1000ml) 1,000 mls @ 999 mls/hr IV .Q1H1M STA Stop: 11/28/21 19:12 Last Infusion: 11/28/21 22:08 Dose: 0 mls/hr Documented By: Admin: 11/28/21 21:07 Dose: 999 mls/hr Documented By: RENAE Ceftriaxone Sodium (Rocephin) 2,000 mg in 70 mls @ 140 mls/hr IV NOW STA Stop: 11/28/21 21:41 Last Infusion: 11/28/21 22:46 Dose: 0 mls/hr Documented By: Admin: 11/28/21 22:01 Dose: 140 mls/hr Documented By: LEWIS Potassium Chloride (K Mainor / Wtr) 10 meq in 100 mls @ 100 mls/hr IV Q1H JUAN; Protocol Stop: 11/28/21 23:14 Last Admin: 11/28/21 23:08 Dose: 100 mls/hr Documented By: Infusion: 11/28/21 23:01 Dose: 100 mls/hr Documented By: Admin: 11/28/21 22:01 Dose: 100 mls/hr Documented By: LEWIS Parenteral Electrolytes (Normosol-R) 2,000 mls @ 999 mls/hr IV .Q2H1M ONE Stop: 11/28/21 23:15 Last Admin: 11/28/21 23:08 Dose: 999 mls/hr Documented By: RENAE Potassium Chloride (Potassium Chloride Crtab 20 Meq Tabcr) 40 meq PO NOW STA Stop: 11/28/21 21:24 Last Admin: 11/28/21 21:59 Dose: 40 meq Documented By: LEWIS Discharge Plan Visit Data Chief Complaint: Abnormal Labs/Diagnostic Testing Stated Complaint: ABNORMAL LABS ED Provider: Eliceo Muñoz Discharge Problem: Acute hyperglycemia, HTN (hypertension), UTI (urinary tract infection), Hypokalemia Forms Stand Alone Forms: [facility] [place] DIGITAL MEDIA Prescriptions Prescriptions: No Action metformin 1,000 mg Tablet 1,000 mg PO BID losartan 25 mg Tablet 25 mg PO QAM Qty: 30 0RF amiodarone 200 mg Tablet 200 mg PO QAM Qty: 30 0RF metoprolol succinate 50 mg Tablet Extended Release 24 Hr 50 mg PO QAM Qty: 30 0RF spironolactone 25 mg tablet 12.5 mg PO QAM insulin glargine-yfgn [Semglee(insulin glarg-yfgn)Pen] 100 unit/mL (3 mL) insulin pen 50 unit SUBCUT HS torsemide 20 mg tablet See Rx Instructions .ROUTE .COMPLEX Rx Instructions: TAKES 40 MG QAM, THEN 20 MG QPM. cyanocobalamin (vitamin B-12) 1,000 mcg Tablet 1,000 mcg PO QAM cholecalciferol (vitamin D3) 25 mcg (1,000 unit) Capsule 25 mcg PO QAM omeprazole magnesium [Prilosec OTC] 20 mg Tablet,Delayed Release (Dr/Ec) 20 mg PO QAM Eliquis 5 mg Tablet 5 mg PO BID 30 Days Qty: 60 2RF Referrals Referrals: Zulma Tripp DO [Primary Care Provider] -
[2021-11-28] MEDS ORDERED: amLODIPine BESYLATE 5 MG TAB PO ONE (21:23)
[2021-11-28] MEDS ORDERED: POTASSIUM CHLORIDE CRTAB 20 MEQ TABCR PO STA (21:23)
[2021-11-28] MEDS ORDERED: DKA GOAL RANGE 150-250 mg/dl ONE (21:34)
[2021-11-28] MEDS: hydrALAZINE HCL 20 MG/ML VIAL IV STA (22:00)
[2021-11-28] MEDS: POTASSIUM CHLORIDE / WTR 10 MEQ/100 ML PLCT IV SCH ×2 (22:01→23:08)
[2021-11-28 22:11] LABS: Magnesium 1.4 mg/dl (1.7-2.4)
[2021-11-28 22:27] LABS: Partial Thromboplastin Time 26.4 Seconds (21.0-31.0)
--- NOTE | 2021-11-28 23:21 | History & Physical Report ---
Date of Service November 28, 2021 Assessment & Plan (1) Hyperglycemic crisis in diabetes mellitus: Plan: Secondary to medication noncompliance Recent outpatient hemoglobin A1c of 12.7 this month Hypertensive urgency secondary to illness ARF on CKD secondary to illness Home medications contributory chronic systolic heart failure secondary to nonischemic cardiomyopathy (EF 15 to 20%, TTE 2020), patient on the dry side chronic LBBB atrial flutter on Eliquis hyperlipidemia/statin intolerance bronchial asthma, stable Asymptomatic pyuria, contaminated specimen, no overt sepsis for now Medical telemetry given BP elevation Continue patient metoprolol and titrate as needed Initiate amlodipine Monitor creatinine response gentle IV hydration Appropriate to hold home diuretics and losartan at the current back to baseline. Renal ultrasound, Nephrology consult if without improvement IV insulin overlap with basal Lantus adjusted for clear liquid diet for now DC IV insulin drip once blood sugar less than 200 May benefit from pharmacy glycemic control consultation. Hold off on antibiotics until urine CS resulted. DVT prophylaxis. Eliquis dosed for renal function Full code Text document was generated using [employer] voice recognition software. It may contain grammatical or spelling errors. Kindly contact undersigned for clarification of any documentation item in question. History of Present Illness Chief Complaint: Abnormal blood work Primary Care Provider: Zulma Tripp DO History obtained from patient and records. Medical history significant for chronic systolic heart failure secondary to nonischemic cardiomyopathy (EF 15 to 20%, TTE 2020), chronic LBBB, atrial flutter on Eliquis, hypertension, hyperlipidemia, DM 2 insulin requiring, CRI (baseline of 1.3 from January 2021), bronchial asthma. Last confinement August 2020 for rapid atrial flutter secondary to noncompliance st atus post cardioversion. Patient has not been able to take her insulin for about a month after she ran out. Patient claims that she was unable to get refills until blood work requested by PCP from last outpatient visit 3 months ago done. Patient not feeling well since last week. Some nausea symptoms without abdominal pain/headache. No dysuria, no chest pain, no SOB. Urine noted to be dark and tea colored as per patient. Patient denies fluid retention. Outpatient hemoglobin A1c yesterday noted to be 12.7. Serum creatinine noted to be 3.6. Patient directed to ER for abnormal blood work. BSG noted to be 400s. IV ceftriaxone administered at the ER for possible UTI. IV insulin subsequently initiated at the ER. 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 Allergies Allergy/AdvReac Type Severity Reaction Status Date / Time lisinopril Allergy Severe Anaphylaxis Verified 11/28/21 21:24 atorvastatin Allergy Intermediate Hives - Verified 11/28/21 21:24 itchy Home Medications Medication Instructions Recorded Confirmed Type metformin 1,000 mg tablet 1,000 mg PO BID 10/21/19 11/28/21 History cholecalciferol (vitamin D3) 25 25 mcg PO QAM 07/17/20 11/28/21 History mcg (1,000 unit) capsule cyanocobalamin (vitamin B-12) 1,000 mcg PO QAM 07/17/20 11/28/21 History 1,000 mcg tablet omeprazole magnesium 20 mg 20 mg PO QAM 07/17/20 11/28/21 History tablet,delayed release (Prilosec OTC) apixaban 5 mg tablet (Eliquis) 5 mg PO BID 30 days #60 tabs 07/22/20 11/28/21 Rx amiodarone 200 mg tablet 200 mg PO QAM #30 tabs 09/01/20 11/28/21 Rx losartan 25 mg tablet 25 mg PO QAM #30 tabs 09/01/20 11/28/21 Rx metoprolol succinate 50 mg 50 mg PO QAM #30 tabs 09/01/20 11/28/21 Rx tablet,extended release 24 hr insulin glargine-yfgn 100 unit/mL 50 unit subcut HS 11/28/21 11/28/21 History (3 mL) subcutaneous pen (Semglee (insulin glargine-yfgn) Pen) spironolactone 25 mg tablet 12.5 mg PO QAM 11/28/21 11/28/21 History torsemide 20 mg tablet See Rx Instructions .Route .COMPLEX 11/28/21 11/28/21 History Past Med/Surg History Medical History Diabetes mellitus, type 2 IDDM GERD (gastroesophageal reflux disease) History of nephrolithiasis Hyperlipidemia Hypertension Kidney stones Morbid obesity Spinal stenosis Vitamin D deficiency Surgical History History of section x2 History of cholecystectomy History of nephrolithotomy with removal of calculi History of tonsillectomy Hx of cystoscopy with stone extraction Status post cystoscopy with ureteral stent placement most recent cystoscopy 11/07/19 [place] Family History Mother Pancreatic cancer Diabetes Bilateral kidney stones Sister Bilateral kidney stones Hypertension Father Heart disease Brother Bilateral kidney stones Other No family history of adverse response to anesthesia Social History Smoking Status: Never smoker Second Hand Exposure: No; Hx Alcohol Use: No Hx Substance Use: No Preferred Language: Arabic Communication Ability: Effective Visual Impairment: No Limitations Reinsurance Claim Analyst Required: No Beliefs That Will Affect Care: None Current Living Situation: Family Feels Safe at Home: Yes Safety Concerns: Feels Safe At This Time Assistive Devices: Cane and Glasses Review of Systems Review of Systems: As per HPI, all other systems reviewed and negative Physical Exam Physical Exam: GENERAL: Comfortable, obese, pleasant, no respiratory distress SKIN: Normal color, warm HEENT: Bespectacled, Flanagan palpebral conjunctivae, no ptosis, dry buccal mucosa NECK : Supple, short neck, no tenderness CHEST : CTA, no tenderness HEART : Diminished S1-S2, no obvious murmurs ABDOMEN: Some distention, nontender EXTREMITIES : Bilateral LE swelling, no LE tenderness, no other conspicuous deformities noted NEUROLOGIC : Coherent, no facial asymmetry, no other gross focality Results & Data Results & Data ([facility]) Vital Signs (Past 12 Hours) Vital Signs Temp Pulse Pulse Resp BP BP Pulse Ox 11/28/21 22:10 70 16 155/82 H 95 11/28/21 21:45 70 23 180/90 H 98 11/28/21 18:11 36.1 C L 80 18 197/96 H 98 O2 Del Method 11/28/21 22:10 Room Air 11/28/21 21:45 Room Air 11/28/21 18:11 Room Air Laboratory Results Laboratory Results WBC 10.30 K/ul (4.8-10.8) 11/28/21 19:05 RBC 4.21 M/uL (3.93-5.22) 11/28/21 19:05 Hgb 12.8 g/dl (12.0-16.0) 11/28/21 19:05 Hct 37.6 % (34.1-44.9) 11/28/21 19:05 MCV 89.3 fL (80.0-100.0) 11/28/21 19:05 MCH 30.4 pg (25.0-34.0) 11/28/21 19:05 MCHC 34.0 g/dL (32.0-36.0) 11/28/21 19:05 RDW Std Deviation 39.8 fL (36.4-46.3) 11/28/21 19:05 RDW Coeff of Nancy 12.2 % (11.5-14.5) 11/28/21 19:05 Plt Count 247 K/uL (130-400) 11/28/21 19:05 MPV 12.7 fL (9.4-12.3) H 11/28/21 19:05 Immature Gran % (Auto) 0.7 % 11/28/21 19:05 Neut % (Auto) 69.8 % 11/28/21 19:05 Lymph % (Auto) 19.6 % 11/28/21 19:05 [place] % (Auto) 8.0 % 11/28/21 19:05 Eos % (Auto) 1.1 % 11/28/21 19:05 Baso % (Auto) 0.8 % 11/28/21 19:05 Neut # (Auto) 7.20 K/uL (1.4-6.5) H 11/28/21 19:05 Lymph # (Auto) 2.02 K/uL (1.2-3.4) 11/28/21 19:05 [place] # (Auto) 0.82 K/uL (0.24-0.82) 11/28/21 19:05 Eos # (Auto) 0.11 K/uL (0-0.50) 11/28/21 19:05 Baso # (Auto) 0.08 K/uL (0-0.2) 11/28/21 19:05 Immature Gran # (Auto) 0.07 K/uL (0.00-0.02) H 11/28/21 19:05 APTT 26.4 Seconds (21.0-31.0) 11/28/21 21:27 PTT Ratio 1.0 11/28/21 21:27 Sodium 132 mmol/L (136-145) L 11/28/21 19:05 Potassium 3.2 mmol/L (3.5-5.1) L 11/28/21 19:05 Chloride 89 mmol/L (98-107) L 11/28/21 19:05 Carbon Dioxide 26 mmol/L (21-32) 11/28/21 19:05 Anion Gap 17 (3-11) H 11/28/21 19:05 BUN 43 mg/dl (6-23) H 11/28/21 19:05 Creatinine 3.97 mg/dl (0.6-1.2) H 11/28/21 19:05 Est Cr Clr Drug Dosing 21.3 ml/min 11/28/21 19:05 Est GFR ( Amer) 13.8 ml/min 11/28/21 19:05 Est GFR (Non-Af Amer) 11.9 ml/min 11/28/21 19:05 BUN/Creatinine Ratio 10.8 (10-20) 11/28/21 19:05 Glucose 504 mg/dl (70-99(Fasting)) H* 11/28/21 19:05 POC Glucose 484 mg/dl (70-99) H* 11/28/21 19:07 Calcium 9.2 mg/dl (8.5-10.1) 11/28/21 19:05 Magnesium 1.4 mg/dl (1.7-2.4) L 11/28/21 19:05 Total Bilirubin 0.5 mg/dl (0.2-1.0) 11/28/21 19:05 AST 20 U/L (13-39) 11/28/21 19:05 ALT 23 U/L (7-52) 11/28/21 19:05 Alkaline Phosphatase 78 U/L (34-104) 11/28/21 19:05 Troponin I High Sens 10.8 pg/ml (0-14) 11/28/21 19:05 Total Protein 7.5 gm/dl (6.0-8.3) 11/28/21 19:05 Albumin 4.0 gm/dl (3.4-5.0) 11/28/21 19:05 Globulin 3.5 gm/dl (2.5-4.0) 11/28/21 19:05 Albumin/Globulin Ratio 1.1 (0.9-2) 11/28/21 19:05 Lipase 43 U/L (11-82) 11/28/21 19:05 Urine Color Yellow 11/28/21 19:05 Urine Appearance Turbid (Clear) A 11/28/21 19:05 Urine pH 5.0 (4.5-7.5) 11/28/21 19:05 Ur Specific [place] 1.015 (1.000-1.030) 11/28/21 19:05 Urine Protein 1+ (Negative) H 11/28/21 19:05 Urine Glucose (UA) 3+ (Negative) H 11/28/21 19:05 Urine Ketones Negative (Negative) 11/28/21 19:05 Urine Blood 3+ (Negative) H 11/28/21 19:05 Urine Nitrite Negative (Negative) 11/28/21 19:05 Urine Bilirubin Negative (Negative) 11/28/21 19:05 Urine Urobilinogen Negative (Negative) 11/28/21 19:05 Ur Leukocyte Esterase 2+ (Negative) H 11/28/21 19:05 Urine WBC (Auto) >30 /hpf (0-5) H 11/28/21 19:05 Urine RBC (Auto) 10-30 /hpf (0-4) H 11/28/21 19:05 U Hyaline Cast (Auto) 0 /lpf (0-5) 11/28/21 19:05 U Epithel Cells (Auto) 0-5 /lpf (0-5) 11/28/21 19:05 Urine Bacteria (Auto) 2+ (Negative) H 11/28/21 19:05 Urine Yeast Not Reportable 11/28/21 19:05 SARS-CoV-2, RNA, NAAT NEGATIVE (NEGATIVE) 11/28/21 22:16 Diagnostic Findings Chest x-ray as per my interpretation cardiomegaly EKG as per my interpretation : Rate 80, NSR, LAD, LAFB, LBBB Code Status & VTE Plan VTE Prophylaxis Plan VTE Prophylaxis will be ordered: Yes
[2021-11-28] MEDS ORDERED: LACTATED RINGER'S 1,000 ML IV ONE (23:30)
[2021-11-29 00:15] LABS: Base Excess VBG 7.1 mEq/L; HCO3 VBG 34 mmol/L; Oxygen Saturation VBG 67.6 %; PCO2 VBG 56 mmHg (38-50); PO2 VBG 38 mmHg; pH VBG 7.39 (7.36-7.41)
[2021-11-29] MEDS: hydrALAZINE HCL 20 MG/ML VIAL IV STA (00:26)
[2021-11-29 00:59] LABS: BUN Creatinine Ratio 11.3 (10-20); Calcium 8.8 mg/dl (8.5-10.1); Creatinine Clr Calc Pharmacy 21.3 ml/min; Est GFR (African American) 13.8 ml/min; Est GFR (Non-African American) 11.9 ml/min; Potassium 3.4 mmol/L (3.5-5.1)
[2021-11-29] MEDS ORDERED: PROMETHAZINE HCL 12.5 MG in SODIUM CHLORIDE 0.9% 50 ML IV PRN (01:17)
[2021-11-29] MEDS ORDERED: ACETAMINOPHEN 325 MG TAB PO PRN (01:17)
[2021-11-29] MEDS: MAGNESIUM SULFATE / D5W 1 GM/100 ML BAG IV SCH ×2 (01:28→03:41)
[2021-11-29] MEDS ORDERED: POTASSIUM CHLORIDE CRTAB 20 MEQ TABCR PO STA ×2 (02:29→09:05)
[2021-11-29] MEDS ORDERED: LANTUS PER UNIT CHARGE SC STA (02:33)
[2021-11-29] MEDS ORDERED: LANTUS PER UNIT CHARGE SC SCH (02:33)
[2021-11-29] MEDS ORDERED: LACTATED RINGER'S 1,000 ML IV ONE ×2 (05:49→22:30)
[2021-11-29] MEDS ORDERED: CARBOHYDRATES FOR HYPOGLYCEMIA PO PRN (05:50)
[2021-11-29] MEDS ORDERED: GLUCAGON FOR INJ 1 MG VIAL SQ PRN (05:50)
[2021-11-29] MEDS ORDERED: GLUCOSE 10 TAB/TUBE PO PRN (05:50)
[2021-11-29] MEDS ORDERED: DEXTROSE 50% 50 ML SYRINGE IV PRN (05:50)
[2021-11-29] MEDS ORDERED: GLUCOSE 40% GEL 15 GM TUBE PO PRN (05:50)
[2021-11-29 06:38] LABS: Basophils # (auto) 0.09 K/uL (0-0.2); Basophils % (auto) 0.9 %; Eosinophils # (auto) 0.16 K/uL (0-0.50); Eosinophils % (auto) 1.6 %; Hematocrit (blood only) 36.4 % (34.1-44.9); Hemoglobin 12.4 g/dl (12.0-16.0); Immature Granulocytes # (auto) 0.07 K/uL (0.00-0.02); Immature Granulocytes % (auto) 0.7 %; Lymphocytes % (auto) 26.4 %; Mean Corpuscular Hemoglobin 30.2 pg (25.0-34.0); Mean Corpuscular Hgb Conc 34.1 g/dL (32.0-36.0); Mean Corpuscular Volume 88.6 fL (80.0-100.0); Mean Platelet Volume 12.4 fL (9.4-12.3); Monocytes % (auto) 10.8 %; Neutrophils % (auto) 59.6 %; Platelet Count 242 K/uL (130-400); RDW Standard Deviation 38.9 fL (36.4-46.3); Red Blood Count 4.11 M/uL (3.93-5.22); White Blood Count 10.22 K/ul (4.8-10.8)
--- NOTE | 2021-11-29 06:54 | Ultrasound Report ---
US renal/blad retro comp HISTORY: 56 years-old Female renal failure acute renal failure COMPARISON: CT abdomen and pelvis 04/02/2020 TECHNIQUE: Multiple real-time sonographic images of the kidneys and urinary bladder were obtained ass essing grayscale appearance and color flow FINDINGS: Limited study secondary to patient body habitus. The right kidney measures 11.1 x 6.1 x 6.1 cm and demonstrates mild diffuse cortical thinning. Calcul i of the right kidney measure up to 1.1 cm within the inferior pole. There is mild right-sided pelvie ctasis without demi hydronephrosis. No solid renal mass lesions of the right kidney. The left kidney measures 12.1 x 6.9 x 7.0 cm and demonstrates mild diffuse cortical thinning. Calculi of the left kidney measure up to 1.4 cm within the region of the renal pelvis. No left-sided hydrone phrosis or solid renal mass lesions. Unremarkable urinary bladder with bilateral ureteral jets. Hepatic steatosis. IMPRESSION: 1. Mild right-sided pelviectasis without demi hydronephrosis. 2. Bilateral renal calculi. 3. Mild cortical thinning of the kidneys. 4. Hepatic steatosis. ACT 112: Negative or not required by law. The above report was generated using voice recognition software. It may contain grammatical, syntax o r spelling errors. Electronically signed by: Antoni Devine M.D. 11/29/2021 6:53 AM
[2021-11-29] MEDS ORDERED: INSULIN ASPART PER UNIT SC SCH ×2 (07:30→16:00)
[2021-11-29 07:35] LABS: BUN Creatinine Ratio 11.5 (10-20); Calcium 8.9 mg/dl (8.5-10.1); Creatinine Clr Calc Pharmacy 24.1 ml/min; Est GFR (African American) 15.7 ml/min; Est GFR (Non-African American) 13.6 ml/min; Potassium 3.2 mmol/L (3.5-5.1)
--- NOTE | 2021-11-29 08:01 | XRay Report ---
XR chest 1V portable CLINICAL HISTORY: renal failure COMPARISON STUDY: Chest CT July 17, 2020. Chest radiograph August 31, 2020. FINDINGS: Lung volumes are normal. Lungs are clear. There is no pneumothorax or pleural effusion. Car diomegaly is unchanged. Mediastinal contours are normal. There is no evidence for pulmonary edema. IMPRESSION: No acute cardiopulmonary findings. Stable cardiomegaly. ACT 112: Negative or not required by law. Electronically signed by: Mart Ortiz M.D. 11/29/2021 8:00 AM
[2021-11-29] MEDS: APIXABAN 2.5 MG TAB PO SCH ×2 (08:13→20:33)
[2021-11-29] MEDS: METOPROLOL SUCC 50MG EXT REL TAB PO SCH (08:13)
[2021-11-29] MEDS: PANTOprazole 40 MG TAB PO SCH (08:13)
[2021-11-29] MEDS: AMIODARONE 200 MG TAB PO SCH (08:13)
[2021-11-29] MEDS: INSULIN ASPART PER UNIT SC SCH ×4 (09:23→20:34)
[2021-11-29] MEDS ORDERED: PHARMACY GLYCEMIC MGMT CONSULT PRN (14:26)
--- NOTE | 2021-11-29 14:40 | Hospitalist Progress Note ---
Date of Service November 29, 2021 Assessment & Plan (1) Hyperglycemic crisis in diabetes mellitus: Plan: 56-year-old lady with PMH of DM 2 insulin requiring, CKD [baseline creatinine 1.3 from January 2021], morbidly obese, HFrEF 2/2 nonischemic cardiomyopathy [EF 15 to 20%, TTE 2020], chronic LBBB, a flutter on Eliquis, HTN, HLD and bronchial asthma presented to ED 11/28 with complaint of not feeling well since last week [employer] associated with some nausea without abdominal pain or headache, darker urine since last few days [employer]PER[employer]. Patient also had blood work the day prior to arrival with A1c of 12.7, BSGs in 400s and serum creatinine of 3.6 and hence was directed to the ED for further evaluation. Of note, she was admitted in August 2020 for rapid atrial flutter secondary to noncompliance status post cardioversion. She is being managed for the following: Uncontrolled diabetes: Admitting blood glucose 504. Secondary to medication noncompliance, patient reports not being able to take her insulin for about a month after she ran out because per her, her insulin was not filled as her lab work requested by PCP from her last outpatient visit 3 months ago were due. A1c 12.7 in recent outpatient labs, inclusion paraeducator and glycemic pharmacy consult. Patient home meds: Metformin 1000 mg p.o. twice daily and insulin glargine 50 unit at bedtime. Sliding scale insulin while inpatient, glycemic pharmacy on board. Hypertensive urgency: Likely secondary to illness, improving. Nephrotoxic antihypertensive on hold until creatinine back to baseline, resume when able, as needed antihypertensives until then. Amlodipine added 11/29. CEDRIC on CKD 2: Admitting BUN and creatinine of 43 and 3.97 at presentation, likely prerenal, admitting renal ultrasound reviewed, continue with IV fluids, nephrology consulted, BMP in a.m., continue to hold losartan/metformin/Aldactone/torsemide. Likely UTI Likely early developing BLE cellulitis Admitting UA suggestive of UTI, patient without symptoms, await admitting urine culture. BLE on exam with mild erythema and warmth to bilateral legs Patient received a dose of Rocephin 11/28 in ED, will continue with Rocephin Continue to monitor clinically. Other chronic medical conditions: HFrEF secondary to nonischemic cardiomyopathy [EF 15 to 20%, TTE 2020], chronic LBBB, atrial flutter on Eliquis, HLD/statin intolerance, bronchial asthma/stable Continue with/resume home meds as and when appropriate. Monitor for volume overload, patient's diuretics is on hold due to CEDRIC and patient is receiving IV fluid. Patient's Eliquis is renally dosed. DVT prophylaxis: Eliquis dosed for renal function Full code Text document was generated using voice recognition software. It may contain grammatical or spelling errors. Kindly contact undersigned for clarification of any documentation item in question. Admission and Anticipated Discharge Date Admission Date: November 28, 2021 Subjective Patient seen and examined at bedside as a follow-up of hyperglycemic crisis and diabetes mellitus, hypertensive urgency, likely UTI, likely developing BLE cellulitis and CEDRIC over CKD. Patient was lying in bed on room air, NAD, denies any acute events overnight, reports eating and moving bowels okay. Patient denies any headache/dizziness/chest pain/sore throat/cough/palpitations/belly pain/other review of symptoms. Patient reports missing insulin for several weeks prior to presentation. She also reports having darker urine for last few days prior to arrival Physical Exam Physical Exam: GENERAL: Alert and oriented x3. NAD, on RA. Class III obese. HEENT: No pallor, no icterus. Pupils equal, round and reactive to light. Oral mucosa moist. NECK: No JVD, no neck masses. HEART: S1 and S2 heard. Regular rate and rhythm. No murmur, no gallop. RESPIRATORY SYSTEM: Normal AP diameter. No accessory muscle use. No wheezing, no crackles. ABDOMEN: Soft, bowel sounds present, nontender, no distention. CENTRAL NERVOUS SYSTEM: No facial droop. Speech is clear. Obeys simple commands. Moves extremities. EXTREMITIES: 1+ BLE pedal edema. Mild erythema and warmth to BLE legs. Results & Data Results & Data ([facility]) Vital Signs (Past 12 Hours) Vital Signs Pulse Resp BP Pulse Ox Pulse Ox O2 Del Method O2 Del Method 11/29/21 11:50 61 18 139/81 95 Room Air 11/29/21 08:12 67 16 153/81 H 99 Room Air 11/29/21 04:46 61 15 136/83 94 Room Air 11/29/21 04:45 93 Room Air 11/29/21 03:01 68 20 174/91 H 96 Room Air
--- NOTE | 2021-11-29 15:11 | Pharmacy Report ---
Pharmacy Glycemic Short Note 2 - Date of Service November 29, 2021 - Glycemic Short BSG Results (Last 24 hours): 11/28/21 11/28/21 11/28/21 19:05 19:07 23:10 Glucose 504 H* POC Glucose 484 H* 478 H* 11/29/21 11/29/21 11/29/21 00:04 00:23 01:26 Glucose 451 H* POC Glucose 439 H* 389 H* 11/29/21 11/29/21 11/29/21 02:32 03:40 04:31 Glucose POC Glucose 353 H* 303 H* 240 H 11/29/21 11/29/21 11/29/21 05:36 06:12 07:33 Glucose 146 H POC Glucose 158 H 190 H 11/29/21 11/29/21 11/29/21 11:31 12:21 12:24 Glucose POC Glucose 283 H 281 H 262 H OUTPATIENT ANTIDIABETIC REGIMEN: * Lantus 50 units hs, metformin 1 gm bid * A1c 12.7% - per provider notes from this month ASSESSMENT: * 56 year old female admitted with hyperglycemia, secondary to medical noncompliance. Per notes patient not taking her insulin for about a month after she ran out out of it. * Initiated on insulin drip last evening, labs improving this morning. Provider ordered 40 units of basal insulin for this morning - this is a reduction in home dose, likely due to clear liquid diet only ordered and CEDRIC on admission. Basal insulin not overlapped with insulin drip. Drip d/c at 0600 this AM. Only ran for about 6 hours. Last rate was 7.6 units/hr * Pharmacy consulted this afternoon for glycemic management. Lunch BSG trending upward 262 mg/dL - little PO intake noted * Plan to tighten CF/CR to stress of 3 - based upon adj bw. May add scale for basal at HS time 0-15 units depending on BSG value PLAN FOR INPATIENT GLYCEMIC CONTROL: * Hold outpatient oral diabetes medications * Basal insulin * Lantus 40 units daily * Lantus 0-15 units HS * Bolus insulin * NovoLog per scale ACHS or Q6hrs while NPO * Goal Range: Low 110 mg/dL - High 140 mg/dL * Correction Factor: 20 mg/dL/unit * Nutritional / Prandial insulin per carb ratio of 1 unit per 6 grams CHO consumed
--- NOTE | 2021-11-29 17:39 | Consultation Report ---
NEPHROLOGY CONSULTATION NOTE DATE OF SERVICE: 11/29/2021. REASON FOR CONSULTATION: Acute renal failure. HISTORY OF PRESENT ILLNESS: The patient is a 56-year-old female with longstanding diabetes, uncontro lled, as well as chronic systolic heart failure secondary to nonischemic cardiomyopathy with an eject ion fraction of 20%, chronic left bundle branch block, atrial flutter on Eliquis, hypertension, histo ry of kidney stone. she does have CKD stage III with a baseline creatinine of 1.3 as of 01/2021. Analisa liu has multiple issues with noncompliance for medication. Also, she has not been taking any insulin f or about a month now after she ran out of insulin. The patient was not feeling well for the last 1 w [place]. She had outpatient labs done yesterday, which showed very high glucose as well as acute renal fa ilure with a creatinine of 3.6. After that, the patient was sent over to the hospital for admission and further management. She was having some nausea symptoms with abdominal pain, headache, questiona ble urinary complaints. She normally takes torsemide and spironolactone, which she was taking. Paul es taking any NSAIDs. On admission, creatinine here was 3.97. This morning it is down to 3.56. She is making urine and sugar is starting to get better. It appears she also has urinary tract infectio n and she is getting ceftriaxone at this time. Diuretics losartan, metformin are currently on hold a nd she is getting Ringer's lactate at 60 mL per hour. She is starting to feel better. PAST MEDICAL AND SURGICAL HISTORY: Includes longstanding type 2 diabetes requiring insulin, chronic kidney disease, baseline creatinine 1.3, history of bronchial asthma, chronic systolic heart failure secondary to nonischemic cardiomyopathy with an EF of 20%, chronic left bundle branch block, atrial f lutter on Eliquis, hypertension, hyperlipidemia, obesity, , percutaneous nephrolithotomy. FAMILY HISTORY: Positive for pancreatic cancer, diabetes, heart disease, skin cancer. ALLERGIES: LIST REVIEWED. MEDICATIONS: Home medication list was reviewed in detail and is as per the reconciliation list. She takes metformin, losartan, spironolactone, and torsemide, all of which are currently on hold. SOCIAL HISTORY: Never smoked. No alcohol. She currently lives with her family. She is single. REVIEW OF SYSTEMS: As detailed in HPI; unless otherwise, 12 systems reviewed and negative. It does not appear that she really had much symptoms prior to hospitalization and this was admission, mainly directed by abnormal blood work. PHYSICAL EXAMINATION: GENERAL: A middle-aged white female who is obese. She is awake, alert, oriented x3. HEENT: Mucous membranes are moist. NECK: Supple. No jugular venous distention. VITAL SIGNS: Blood pressure 139/81, pulse rate 68, temperature 36.1, oxygen saturation 95% on room a ir. CHEST: Bilateral clear to auscultation. CARDIOVASCULAR: S1 and S2, regular. ABDOMEN: Soft, nontender, obese. EXTREMITIES: Shows obesity related edema bilaterally. LABORATORY TEST: Baseline creatinine 1.3. Creatinine yesterday evening was 3.97. This morning is a lready down to 3.56. Most recent lab work shows sodium 138, potassium 3.2, BUN 41, creatinine 3.56, glucose 146, calcium 8.9, magnesium 2.0. WBC count 10,000, hemoglobin 12.4, platelet count 242. [address] st x-ray does not show any CHF. Renal ultrasound shows mild right sided pelviectasis without demi h ydronephrosis, bilateral renal calculi, mild cortical thinning of the kidneys and fatty liver. Urine culture looks like it is positive, but definitive testing still pending. ASSESSMENT AND PLAN: A 56-year-old female with longstanding type 2 diabetes with lot of noncomplianc e history, admitted with acute renal failure and very abnormal blood glucose. I have been consulted for management of acute renal failure. 1. Acute renal failure: This is in the setting of uncontrolled diabetes after she stopped taking he r insulin and did not refill it. Persistent hyperglycemia for considerable time can cause significan t osmotic diuresis with volume depletion. I agree with holding spironolactone and torsemide, metform in and losartan for the time being to allow for better renal recovery. I agree with current use of I V fluids with Ringer's lactate at 60 mL per hour. Potassium still low, so we can give her some oral potassium. Creatinine has gone down by about 0.5 in less than 12-hour time, which is pretty good rat e of improvement. Hopefully, she will continue to have renal recovery in the coming days. Already r uled out obstructive uropathy with ultrasound. Depending on where we see the blood work tomorrow, we will address whether further testing is needed or not. Thank you very much for the consult. Job ID: [id number]
[2021-11-29] MEDS: amLODIPine BESYLATE 5 MG TAB PO SCH (20:33)
[2021-11-29] MEDS: LANTUS PER UNIT CHARGE SQ SCH (20:34)
[2021-11-29] MEDS: cefTRIAXone SODIUM 2,000 MG in DEXTROSE 5% 50 ML IV SCH (21:10)
[2021-11-30] MEDS: INSULIN ASPART PER UNIT SC SCH ×6 (00:04→20:37)
[2021-11-30 05:48] LABS: Hematocrit (blood only) 35.3 % (34.1-44.9); Hemoglobin 11.9 g/dl (12.0-16.0); Mean Corpuscular Hemoglobin 30.3 pg (25.0-34.0); Mean Corpuscular Hgb Conc 33.7 g/dL (32.0-36.0); Mean Corpuscular Volume 89.8 fL (80.0-100.0); Mean Platelet Volume 12.5 fL (9.4-12.3); Platelet Count 220 K/uL (130-400); RDW Coefficient of Variation 12.3 % (11.5-14.5); RDW Standard Deviation 40.6 fL (36.4-46.3); Red Blood Count 3.93 M/uL (3.93-5.22); White Blood Count 7.21 K/ul (4.8-10.8)
--- NOTE | 2021-11-30 06:00 | Electrocardiogram Report ---
Test Reason : Blood Pressure : / mmHG Vent. Rate : 078 BPM Atrial Rate : 078 BPM P-R Int : 168 ms QRS Dur : 170 ms QT Int : 464 ms P-R-T Axes : 042 -40 122 degrees QTc Int : 528 ms Normal sinus rhythm Left axis deviation Left bundle branch block Abnormal ECG When compared with ECG of 31-AUG-2020 13:09, QRS duration has increased Confirmed by Angel Ybarra ([id number]) on 11/30/2021 6:00:11 AM Referred By: Zulma Tripp Confirmed By:Angel Ybarra
[2021-11-30 06:14] LABS: BUN Creatinine Ratio 12.3 (10-20); Calcium 8.5 mg/dl (8.5-10.1); Est GFR (Non-African American) 19.8 ml/min; Magnesium 1.8 mg/dl (1.7-2.4); Potassium 3.4 mmol/L (3.5-5.1)
[2021-11-30] MEDS: AMIODARONE 200 MG TAB PO SCH (08:02)
[2021-11-30] MEDS: PANTOprazole 40 MG TAB PO SCH (08:02)
[2021-11-30] MEDS: METOPROLOL SUCC 50MG EXT REL TAB PO SCH (08:02)
[2021-11-30] MEDS: APIXABAN 2.5 MG TAB PO SCH ×2 (08:02→20:36)
[2021-11-30] MEDS: LANTUS PER UNIT CHARGE SQ SCH ×2 (08:22→20:37)
[2021-11-30] MEDS ORDERED: POTASSIUM CHLORIDE CRTAB 20 MEQ TABCR PO STA (08:40)
--- NOTE | 2021-11-30 10:01 | Nephrology Progress Note ---
Date of Service November 30, 2021 Assessment & Plan Admission and Anticipated Discharge Date Admission Date: November 28, 2021 Subjective S--no new issues.Feels fine. PHYSICAL EXAMINATION: GENERAL: A middle-aged white female who is obese. She is awake, alert, oriented x3. HEENT: Mucous membranes are moist. NECK: Supple. No jugular venous distention. CHEST: Bilateral clear to auscultation. CARDIOVASCULAR: S1 and S2, regular. ABDOMEN: Soft, nontender, obese. EXTREMITIES: Shows obesity related edema bilaterally. LABORATORY TEST: Creat down to the 2's now. ASSESSMENT AND PLAN: A 56-year-old female with longstanding type 2 diabetes with lot of noncompliance history, admitted with acute renal failure and very abnormal blood glucose.I have been consulted for management of acute renal failure. 1. Acute renal failure: This is in the setting of uncontrolled diabetes after she stopped taking her insulin and did not refill it. Persistent hyperglycemia for considerable time can cause significant osmotic diuresis with volume depletion.Continue to hold spironolactone and torsemide, metformin and losartan for the time being to allow for better renal recovery. I agree with current use of IV fluids with Ringer's lactate at 60 mL per hour. Potassium still low, so we can give her some oral potassium.Hopefully, she will continue to have renal recovery in the coming days.Already ruled out obstructive uropathy with ultrasound. No further testing needed. Results & Data ([facility]) Vital Signs (Past 12 Hours) Vital Signs Temp Pulse Pulse Resp BP Pulse Ox O2 Del Method 11/30/21 09:13 57 L 11/30/21 08:12 36.5 C 93 H 18 150/69 H 93 Room Air 11/30/21 04:00 36.6 C 76 18 153/81 H 97 Room Air 11/29/21 23:00 36.4 C L 66 18 176/94 H 97 Room Air 11/29/21 22:24 53 L
[2021-11-30] MEDS ORDERED: LACTATED RINGER'S 1,000 ML IV SCH (16:15)
--- NOTE | 2021-11-30 16:17 | Hospitalist Progress Note ---
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 Patient also had blood work the day prior to arrival with A1c of 12.7, BSGs in 400s and serum creatinine of 3.6 and hence was directed to the ED for further evaluation. Of note, she was admitted in August 2020 for rapid atrial flutter secondary to noncompliance status post cardioversion. She is being managed for the following: Uncontrolled diabetes: Admitting blood glucose 504. Secondary to medication noncompliance and dietary noncompliance, patient reports not being able to take her insulin for about a month after she ran out because per her, her insulin was not filled as her lab work requested by PCP from her last outpatient visit 3 months ago were due. A1c 12.7 in recent outpatient labs, health educator and glycemic pharmacy consulted. Patient home meds: Metformin 1000 mg p.o. twice daily and insulin glargine 50 unit at bedtime. Since pt was not using insulin for long time, will first try to get that settled and then patient can f/u w/ PCP for starting other agents like SGLT-2 inhibitors (given CHF hx) or weekly GLP-1 agonists (given satiety/wt loss benefits). She will need Semglee pens at time of discharge. Sliding scale insulin while inpatient, glycemic pharmacy on board. Hypertensive urgency: Likely secondary to illness, improving. Nephrotoxic antihypertensive on hold until creatinine back to baseline, resume when able, as needed antihypertensives until then. Amlodipine added 11/29 for interim BP control. CEDRIC on CKD 2: Admitting BUN and creatinine of 43 and 3.97 at presentation, likely prerenal, admitting renal ultrasound reviewed, continue with IV fluids at minimal rate (concern of vol overload), nephrology on board, BMP in a.m., continue to hold losartan/metformin/Aldactone/torsemide. Likely UTI Likely early developing BLE cellulitis Admitting UA suggestive of UTI, patient without symptoms, admitting urine culture --> contaminated. BLE on exam with mild erythema and warmth to bilateral legs --> improving. Patient received a dose of Rocephin 11/28 in ED, will continue with Rocephin Continue to monitor clinically. Other chronic medical conditions: HFrEF secondary to nonischemic cardiomyopathy [EF 15 to 20%, TTE 2020], chronic LBBB, atrial flutter on Eliquis, HLD/statin intolerance, bronchial asthma/stable Continue with/resume home meds as and when appropriate. Monitor for volume overload, patient's diuretics is on hold due to CEDRIC and patient is receiving IV fluid. Patient's Eliquis is renally dosed. DVT prophylaxis: Eliquis dosed for renal function Full code Text document was generated using voice recognition software. It may contain grammatical or spelling errors. Kindly contact undersigned for clarification of any documentation item in question. Admission and Anticipated Discharge Date Admission Date: November 28, 2021 Subjective Patient seen and examined at bedside as a follow-up of hyperglycemic crisis and diabetes mellitus, hypertensive urgency, likely UTI, likely developing BLE cellulitis and CEDRIC over CKD. Patient was lying in bed on room air, NAD, denies any acute events overnight, reports eating and moving bowels okay. Pt reports feeling better and making urine better. Patient denies any headache/dizziness/chest pain/sore throat/cough/palpitations/belly pain/other review of symptoms. Patient reports missing insulin for several weeks prior to presentation. At presentation, she also reported having darker urine for last few days prior to arrival. Physical Exam Physical Exam: GENERAL: Alert and oriented x3. NAD, on RA. Class III obese. HEENT: No pallor, no icterus. Pupils equal, round and reactive to light. Oral mucosa moist. NECK: No JVD, no neck masses. HEART: S1 and S2 heard. Regular rate and rhythm. No murmur, no gallop. RESPIRATORY SYSTEM: Normal AP diameter. No accessory muscle use. No wheezing, no crackles. ABDOMEN: Soft, bowel sounds present, nontender, no distention. CENTRAL NERVOUS SYSTEM: No facial droop. Speech is clear. Obeys simple commands. Moves extremities. EXTREMITIES: 1 to 2+ BLE pedal edema. Mild erythema and warmth to BLE legs --> improving Results & Data Results & Data ([facility]) Vital Signs (Past 12 Hours) Vital Signs Temp Pulse Pulse Resp BP BP Pulse Ox 11/30/21 15:50 36.7 C 60 18 151/75 H 96 11/30/21 11:55 36.7 C 62 16 151/89 H 96 11/30/21 09:13 57 L 11/30/21 08:12 36.5 C 93 H 18 150/69 H 93 O2 Del Method 11/30/21 15:50 Room Air 11/30/21 11:55 Room Air 11/30/21 09:13 11/30/21 08:12 Room Air
[2021-11-30] MEDS: amLODIPine BESYLATE 5 MG TAB PO SCH (20:36)
[2021-11-30] MEDS: cefTRIAXone SODIUM 2,000 MG in DEXTROSE 5% 50 ML IV SCH (21:06)
[2021-12-01] MEDS: PANTOprazole 40 MG TAB PO SCH (08:27)
[2021-12-01] MEDS: APIXABAN 2.5 MG TAB PO SCH (08:27)
[2021-12-01] MEDS: METOPROLOL SUCC 50MG EXT REL TAB PO SCH (08:27)
[2021-12-01] MEDS: AMIODARONE 200 MG TAB PO SCH (08:28)
[2021-12-01 08:29] LABS: BUN Creatinine Ratio 11.9 (10-20); Calcium 8.5 mg/dl (8.5-10.1); Est GFR (African American) 32.7 ml/min; Est GFR (Non-African American) 28.2 ml/min; Potassium 3.9 mmol/L (3.5-5.1)
[2021-12-01] MEDS: INSULIN ASPART PER UNIT SC SCH ×4 (08:29→21:18)
[2021-12-01] MEDS: LANTUS PER UNIT CHARGE SQ SCH ×2 (08:29→21:17)
--- NOTE | 2021-12-01 12:25 | Nephrology Progress Note ---
Date of Service December 01, 2021 Assessment & Plan Admission and Anticipated Discharge Date Admission Date: November 28, 2021 Subjective Subjective S--no new issues.Feels fine. PHYSICAL EXAMINATION: GENERAL: A middle-aged white female who is obese. She is awake, alert, oriented x3. HEENT: Mucous membranes are moist. NECK: Supple. No jugular venous distention. CHEST: Bilateral clear to auscultation. CARDIOVASCULAR: S1 and S2, regular. ABDOMEN: Soft, nontender, obese. EXTREMITIES: Shows obesity related edema bilaterally. LABORATORY TEST: Creat down to 1.94 now. ASSESSMENT AND PLAN: A 56-year-old female with longstanding type 2 diabetes with lot of noncompliance history, admitted with acute renal failure and very abnormal blood glucose.I have been consulted for management of acute renal failure. 1. Acute renal failure: This is in the setting of uncontrolled diabetes after she stopped taking her insulin and did not refill it. Persistent hyperglycemia for considerable time can cause significant osmotic diuresis with volume depletion.Continue to hold spironolactone and torsemide, metformin and losartan for the time being to allow for better renal recovery. I agree with current use of IV fluids with Ringer's lactate at 60 mL per hour. Potassium still low, so we can give her some oral potassium.Hopefully, she will continue to have renal recovery in the coming days.Already ruled out obstructive uropathy with ultrasound. No further testing needed. Rec: Stop iv fluid. Hold the spironolactone and torsemide, metformin and losartan for the time being to allow for better renal recovery for few more days. Labs as outpt within next few days. Outpt Nephrology f/u. Results & Data ([facility]) Vital Signs (Past 12 Hours) Vital Signs Temp Pulse Pulse Resp BP BP Pulse Ox 12/01/21 10:29 36.8 C 63 20 163/80 H 96 12/01/21 08:53 58 L 12/01/21 08:00 36.3 C L 76 20 172/81 H 92 12/01/21 04:00 36.6 C 74 18 168/88 H 98 O2 Del Method 12/01/21 10:29 Room Air 12/01/21 08:53 12/01/21 08:00 Room Air 12/01/21 04:00 Room Air
--- NOTE | 2021-12-01 15:44 | Hospitalist Progress Note ---
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 Patient also had blood work the day prior to arrival with A1c of 12.7, BSGs in 400s and serum creatinine of 3.6 and hence was directed to the ED for further evaluation. Of note, she was admitted in August 2020 for rapid atrial flutter secondary to noncompliance status post cardioversion. She is being managed for the following: Uncontrolled diabetes: Admitting blood glucose 504. Secondary to medication noncompliance and dietary noncompliance, patient reports not being able to take her insulin for about a month after she ran out because per her, her insulin was not filled as her lab work requested by PCP from her last outpatient visit 3 months ago were due. A1c 12.7 in recent outpatient labs, medical educator and glycemic pharmacy consulted. Patient home meds: Metformin 1000 mg p.o. twice daily and insulin glargine 50 unit at bedtime. Since pt was not using insulin for long time, will first try to get that settled and then patient can f/u w/ PCP for starting other agents like SGLT-2 inhibitors (given CHF hx) or weekly GLP-1 agonists (given satiety/wt loss benefits) --> Pt made aware. She will need Semglee pens at time of discharge. Sliding scale insulin while inpatient, glycemic pharmacy on board. Hypertensive urgency: Likely secondary to illness, improving. Nephrotoxic antihypertensive on hold until creatinine back to baseline, resume when able, as needed antihypertensives until then. Amlodipine added 11/29 for interim BP control. CEDRIC on CKD 2: Admitting BUN and creatinine of 43 and 3.97 at presentation, likely prerenal, admitting renal ultrasound reviewed, DC IVF, nephrology on board, BMP in a.m., continue to hold losartan/metformin/Aldactone/torsemide. Nephro f/u upon DC. Likely UTI Likely early developing BLE cellulitis Admitting UA suggestive of UTI, patient without symptoms, admitting urine culture --> contaminated. BLE on exam with mild erythema and warmth to bilateral legs at presentation --> improved. Patient received a dose of Rocephin 11/28 in ED, will continue with Rocephin, change to [place]. Continue to monitor clinically. Other chronic medical conditions: HFrEF secondary to nonischemic cardiomyopathy [EF 15 to 20%, TTE 2020], chronic LBBB, atrial flutter on Eliquis, HLD/statin intolerance, bronchial asthma/stable Continue with/resume home meds as and when appropriate. Monitor for volume overload, patient's diuretics is on hold due to CEDRIC. Patient's Eliquis is renally dosed. DVT prophylaxis: Eliquis dosed for renal function Full code Dispo: [place]. Text document was generated using voice recognition software. It may contain grammatical or spelling errors. Kindly contact undersigned for clarification of any documentation item in question. Admission and Anticipated Discharge Date Admission Date: November 28, 2021 Subjective Patient seen and examined at bedside as a follow-up of hyperglycemic crisis and diabetes mellitus, hypertensive urgency, likely UTI, likely developing BLE cellulitis and CEDRIC over CKD. Patient was sitting up in bed on room air, NAD, denies any acute events overnight, reports eating and moving bowels okay. Pt reports feeling better and making urine better. Patient denies any headache/dizziness/chest pain/sore throat/cough/palpitations/belly pain/other review of symptoms. Patient reports missing insulin for several weeks prior to presentation. At presentation, she also reported having darker urine for last few days prior to arrival. Physical Exam Physical Exam: GENERAL: Alert and oriented x3. NAD, on RA. Class III obese. HEENT: No pallor, no icterus. Pupils equal, round and reactive to light. Oral mucosa moist. NECK: No JVD, no neck masses. HEART: S1 and S2 heard. Regular rate and rhythm. No murmur, no gallop. RESPIRATORY SYSTEM: Normal AP diameter. No accessory muscle use. No wheezing, no crackles. ABDOMEN: Soft, bowel sounds present, nontender, no distention. CENTRAL NERVOUS SYSTEM: No facial droop. Speech is clear. Obeys simple commands. Moves extremities. EXTREMITIES: 1 to 2+ BLE pedal edema. Mild erythema and warmth to BLE legs --> improving Results & Data Results & Data ([facility]) Vital Signs (Past 12 Hours) Vital Signs Temp Pulse Pulse Resp BP BP Pulse Ox 12/01/21 15:21 64 12/01/21 10:29 36.8 C 63 20 163/80 H 96 12/01/21 08:53 58 L 12/01/21 08:00 36.3 C L 76 20 172/81 H 92 12/01/21 04:00 36.6 C 74 18 168/88 H 98 O2 Del Method 12/01/21 15:21 12/01/21 10:29 Room Air 12/01/21 08:53 12/01/21 08:00 Room Air 12/01/21 04:00 Room Air
--- NOTE | 2021-12-01 16:45 | Discharge Summary ---
Date of Service December 01, 2021 Admission HPI Per Admitting Provider History obtained from patient and records. Medical history significant for chronic systolic heart failure secondary to nonischemic cardiomyopathy (EF 15 to 20%, TTE 2020), chronic LBBB, atrial flutter on Eliquis, hypertension, hyperlipidemia, DM 2 insulin requiring, CRI (baseline of 1.3 from January 2021), bronchial asthma. Last confinement August 2020 for rapid atrial flutter secondary to noncompliance status post cardioversion. Patient has not been able to take her insulin for about a month after she ran out. Patient claims that she was unable to get refills until blood work requested by PCP from last outpatient visit 3 months ago done. Patient not feeling well since last week. Some nausea symptoms without abdominal pain/headache. No dysuria, no chest pain, no SOB. Urine noted to be dark and tea colored as per patient. Patient denies fluid retention. Outpatient hemoglobin A1c yesterday noted to be 12.7. Serum creatinine noted to be 3.6. Patient directed to ER for abnormal blood work. BSG noted to be 400s. IV ceftriaxone administered at the ER for possible UTI. IV insulin subsequently initiated at the ER. 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 Admission Exam Per Admitting Provider GENERAL: Comfortable, obese, pleasant, no respiratory distress SKIN: Normal color, warm HEENT: Bespectacled, [place] palpebral conjunctivae, no ptosis, dry buccal mucosa NECK : Supple, short neck, no tenderness CHEST : CTA, no tenderness HEART : Diminished S1-S2, no obvious murmurs ABDOMEN: Some distention, nontender EXTREMITIES : Bilateral LE swelling, no LE tenderness, no other conspicuous deformities noted NEUROLOGIC : Coherent, no facial asymmetry, no other gross focality Principal Diagnosis Uncontrolled diabetes Hypertensive urgency CEDRIC on CKD stage II Likely UTI Likely early developing BLE cellulitis Discharge Exam GENERAL: Alert and oriented x3. NAD, on RA. Class III obese. HEENT: No pallor, no icterus. Pupils equal, round and reactive to light. Oral mucosa moist. NECK: No JVD, no neck masses. HEART: S1 and S2 heard. Regular rate and rhythm. No murmur, no gallop. RESPIRATORY SYSTEM: Normal AP diameter. No accessory muscle use. No wheezing, no crackles. ABDOMEN: Soft, bowel sounds present, nontender, no distention. CENTRAL NERVOUS SYSTEM: No facial droop. Speech is clear. Obeys simple commands. Moves extremities. EXTREMITIES: 1 to 2+ BLE pedal edema. Mild erythema and warmth to BLE legs --> improved Discharge Data Allergies Allergy/AdvReac Type Severity Reaction Status Date / Time lisinopril Allergy Severe Anaphylaxis Verified 11/28/21 21:24 atorvastatin Allergy Intermediate Hives - Verified 11/28/21 21:24 itchy Consultations 11/28/21 21:16 ED Decision to Admit Stat 11/29/21 02:28 Consult Nephrology Routine Ordered Studies 11/29/21 01:13 US renal/blad retro comp Urgent Diabetes Follow up Diabetes Follow-up Needed for HgbA1c >9% Hospital Course (1) Hyperglycemic crisis in diabetes mellitus: 56-year-old lady with PMH of DM 2 insulin requiring, CKD [baseline creatinine 1.3 from January 2021], morbidly obese, HFrEF 2/2 nonischemic cardiomyopathy [EF 15 to 20%, TTE 2020], chronic LBBB, a flutter on Eliquis, HTN, HLD and bronchial asthma presented to ED 11/28 with complaint of not feeling well since last week [employer] associated with some nausea without abdominal pain or headache, darker urine since last few days [employer]. Patient also had blood work the day prior to arrival with A1c of 12.7, BSGs in 400s and serum creatinine of 3.6 and hence was directed to the ED for further evaluation. Of note, she was admitted in August 2020 for rapid atrial flutter secondary to noncompliance status post cardioversion. She is being managed for the following: Uncontrolled diabetes: Admitting blood glucose 504. Secondary to medication noncompliance and dietary noncompliance, patient reports not being able to take her insulin for about a month after she ran out because per her, her insulin was not filled as her lab work requested by PCP from her last outpatient visit 3 months ago were due. A1c 12.7 in recent outpatient labs, primary special educator and glycemic pharmacy consulted. Patient home meds: Metformin 1000 mg p.o. twice daily and insulin glargine 50 unit at bedtime. Since pt was not using insulin for long time, will first try to get that settled and then patient can f/u w/ PCP for starting other agents like SGLT-2 inhibitors (given CHF hx) or weekly GLP-1 agonists (given satiety/wt loss benefits) --> Pt made aware. She will need Semglee pens at time of discharge. Sliding scale insulin while inpatient, glycemic pharmacy on board. Hypertensive urgency: Likely secondary to illness, improving. Nephrotoxic antihypertensive on hold until creatinine back to baseline, resume when able, as needed antihypertensives until then. Amlodipine added 11/29 for interim BP control. CEDRIC on CKD 2: Admitting BUN and creatinine of 43 and 3.97 at presentation, likely prerenal, admitting renal ultrasound reviewed, DC'd IVF, nephrology on board ok w/ dc, BMP in [place], pt to schedule by calling her PCP office, pt agreed, continue to hold losartan/metformin/Aldactone/torsemide until evaluated by PCP as OP which needs to be done in 2-3 days of discharge and patient is agreeable to this. Nephro f/u upon DC. Likely UTI Likely early developing BLE cellulitis Admitting UA suggestive of UTI, patient without symptoms, admitting urine culture --> contaminated. BLE on exam with mild erythema and warmth to bilateral legs at presentation --> improved. Patient received a dose of Rocephin 11/28 in ED, PO antibiotic on discharge. Other chronic medical conditions: HFrEF secondary to nonischemic cardiomyopathy [EF 15 to 20%, TTE 2020], chronic LBBB, atrial flutter on Eliquis, HLD/statin intolerance, bronchial asthma/stable Continue with/resume home meds as and when appropriate. Monitor for volume overload, patient's diuretics is on hold due to CEDRIC. DVT prophylaxis: Eliquis Full code Pt being discharged to home w/ following instructions at the point of discharge: Follow-up with your primary care physician in 2 to 3 days upon discharge as a part of transition of care and close monitoring/adjustment of your home medications that are being held due to your poor renal function at the point of discharge. Those medications are metformin/losartan/Aldactone/torsemide. You will need a blood test BMP done tomorrow, and your results needs to be reviewed by primary care physician for necessary adjustment of your those medications. As discussed, at the point of discharge you are supposed to hold those medications until evaluated by a physician which needs to be done as soon as possible. Those medications are very important for you. Get another set of blood test CBC and BMP in 5 days in addition to BMP tomorrow. Follow-up with nephrology Within a week time. You will be discharged on antibiotics to complete the course. Probiotics will be added. For your uncontrolled diabetes, advise compliance with your insulin regimen, you will need additional medications down the road in the line of SGLT2 inhibitors or GLP-1 agonists. Recommend to closely follow-up with your primary physician or diabetic clinic for evaluation/management in this regard. Establish and follow-up with therapy coordinator as an outpatient as discussed at the bedside. Take your home dose of Eliquis upon discharge. Take your medications as prescribed. Text document was generated using voice recognition software. It may contain grammatical or spelling errors. Kindly contact undersigned for clarification of any documentation item in question. Total Time Total Time Spent Total Time Spent (In Minutes): 45 Discharge Plan Discharge Items Patient Disposition: Home - Self-Care Reason For Visit: HYPERGLYCEMIC CRISIS, ARF, HTN URG Discharge Diagnosis: Uncontrolled diabetes Hypertensive urgency CEDRIC on CKD stage II Likely UTI Likely early developing BLE cellulitis Activity: Resume your previous activity Non-emergency contact: Primary Care Provider Call non-emergency contact if: you have any medication questions, your symptoms worsen and your temperature is above 101 Follow-up/Referrals: Zulma Tripp DO [Primary Care Provider] - Diet: Carb Consistent or DM2 and Heart Healthy Addtl Attending Provider Instructions: Follow-up with your primary care physician in 2 to 3 days upon discharge as a part of transition of care and close monitoring/adjustment of your home medications that are being held due to your poor renal function at the point of discharge. Those medications are metformin/losartan/Aldactone/torsemide. You will need a blood test BMP done tomorrow, and your results needs to be reviewed by primary care physician for necessary adjustment of your those medications. As discussed, at the point of discharge you are supposed to hold those medications until evaluated by a physician which needs to be done as soon as possible. Those medications are very important for you. Get another set of blood test CBC and BMP in 5 days in addition to BMP tomorrow. Follow-up with nephrology Within a week time. You will be discharged on antibiotics to complete the course. Probiotics will be added. For your uncontrolled diabetes, advise compliance with your insulin regimen, you will need additional medications down the road in the line of SGLT2 inhibitors or GLP-1 agonists. Recommend to closely follow-up with your primary physician or diabetic clinic for evaluation/management in this regard. Establish and follow-up with therapy coordinator as an outpatient as discussed at the bedside. Take your home dose of Eliquis upon discharge. Take your medications as prescribed. Pending Studies at Discharge: No Stand-Alone Forms: My [facility], Smoking Cessation Medications and DC Order Prescriptions: New amlodipine [Norvasc] 5 mg Tablet 2.5 mg PO HS 10 Days Qty: 5 0RF cephalexin 500 mg capsule 500 mg PO BID 7 Days Qty: 14 0RF Probiotic 3 billion cell capsule 3,000 mmu cells PO DAILY 7 Days Qty: 7 0RF Rx Instructions: administer with a meal Continued amiodarone 200 mg Tablet 200 mg PO QAM Qty: 30 0RF metoprolol succinate 50 mg Tablet Extended Release 24 Hr 50 mg PO QAM Qty: 30 0RF insulin glargine-yfgn [Semglee(insulin glarg-yfgn)Pen] 100 unit/mL (3 mL) insulin pen 50 unit SUBCUT HS Qty: 15 0RF cyanocobalamin (vitamin B-12) 1,000 mcg Tablet 1,000 mcg PO QAM cholecalciferol (vitamin D3) 25 mcg (1,000 unit) Capsule 25 mcg PO QAM omeprazole magnesium [Prilosec OTC] 20 mg Tablet,Delayed Release (Dr/Ec) 20 mg PO QAM Eliquis 5 mg Tablet 5 mg PO BID 30 Days Qty: 60 2RF Discontinued metformin 1,000 mg Tablet 1,000 mg PO BID losartan 25 mg Tablet 25 mg PO QAM Qty: 30 0RF spironolactone 25 mg tablet 12.5 mg PO QAM torsemide 20 mg tablet See Rx Instructions .ROUTE .COMPLEX Rx Instructions: TAKES 40 MG QAM, THEN 20 MG QPM. Discharge Orders: Discharge Order (Routine); Ordered 12/01/21 Ordered By: Gillian Enriquez Admission Data Admit Date/Time: 11/28/21 23:13 Attending Provider: Gillian Enriquez Admit Provider: Blanco Aguirre Primary Care Provider: Zulma Tripp Other Providers: Blanco Aguirre ; Dominique Mohan ; Stephen Orlando ; Cindy Flores ; Luther Gaines ; Jordin Hightower ; Gwendolyn Grimes
[2021-12-01] MEDS ORDERED: amLODIPine BESYLATE 5 MG TAB PO SCH ×2 (21:00)
[2021-12-01] MEDS: APIXABAN 5 MG TABLET PO SCH (21:18)
[2021-12-01] MEDS: cefTRIAXone SODIUM 2,000 MG in DEXTROSE 5% 50 ML IV SCH (22:45)
[2021-12-02 08:21] LABS: Anion Gap 7 (3-11); BUN Creatinine Ratio 11.1 (10-20); Blood Urea Nitrogen 17 mg/dl (6-23); Calcium 8.5 mg/dl (8.5-10.1); Carbon Dioxide 30 mmol/L (21-32); Chloride 104 mmol/L (98-107); Creatinine Clr Calc Pharmacy 57.1 ml/min; Est GFR (African American) 43.6 ml/min; Est GFR (Non-African American) 37.6 ml/min; Glucose 165 mg/dl (70-99(Fasting)); Sodium 141 mmol/L (136-145)
[2021-12-02] MEDS: APIXABAN 5 MG TABLET PO SCH (08:42)
[2021-12-02] MEDS: METOPROLOL SUCC 50MG EXT REL TAB PO SCH (08:42)
[2021-12-02] MEDS: AMIODARONE 200 MG TAB PO SCH (08:43)
[2021-12-02] MEDS: PANTOprazole 40 MG TAB PO SCH (08:43)
[2021-12-02] MEDS: INSULIN ASPART PER UNIT SC SCH ×2 (08:45→12:33)
--- NOTE | 2021-12-02 08:53 | Communication Note ---
Date of Service: December 02, 2021 Pls ensure hospital discharge appt w/ nearest [facility] [place] at d/c, any physician, w/in 2-3 wks of d/c; pls have nephro RN order bmp w/in one week of d /c
[2021-12-02] MEDS ORDERED: cephALEXin 500 MG CAP PO SCH (09:00)
[2021-12-02] MEDS: LANTUS PER UNIT CHARGE SQ SCH (09:02)
[2021-12-02] MEDS ORDERED: LANTUS PER UNIT CHARGE SQ ONE (13:30)
== END 2021-12-02 14:21 | disposition home or self-care (01) | DRG 638 ==
LOC: ED 17:34 → EDINP 23:13 → 2N 11-29 01:15

== ENCOUNTER 2023-03-02 07:34 | Inpatient (IN) ==
--- NOTE | 2023-03-02 07:45 | Emergency Department Note ---
Impression & Plan Ureteral stone with hydronephrosis, Uncontrolled diabetes mellitus with hyperglycemia, Hematuria, Anticoagulated ED Provider Note CHIEF COMPLAINT: Kidney stone HISTORY OF PRESENTING ILLNESS: This 57-year-old female patient presents to the emergency department for evaluation of possible kidney stone. She started with right sided flank pain at 2 am this morning. The patient states that she had a kidney stone on the left side in November and is now having pain on the right side that feels the same. She admits to nausea and vomiting from the pain as well. She has also been having a lot of blood in her urine. She rates her pain as sharp and 8/10. Took Tylenol and oxycodone without improvement of her symptoms. She is on Eliquis. She denies chest pain or SOB. Denies any fevers. She is slightly constipated at baseline, but had a BM last night and no recent changes. REVIEW OF SYSTEMS: See HPI for pertinent positives and pertinent negatives. ALLERGIES: Lisinopril, atorvastatin MEDICATIONS: See below PAST MEDICAL HISTORY: See below PHYSICAL EXAM: VITALS: Vitals are noted on the nurse's note and reviewed by myself. GENERAL: Non toxic, no acute distress, non-diaphoretic. SKIN: Capillary refill <2 sec. EYES: PERRLA. EOMI. Conjunctivae without injection, sclerae without icterus. NOSE: Patent without discharge. MOUTH: Mucous membranes moist. Uvula midline. Airway patent. NECK: Supple without nuchal rigidity. HEART: Regular rate and rhythm without murmurs gallops or rubs. LUNGS: Clear to auscultation bilaterally without wheezes, rales or rhonchi. No retractions or accessory muscle use. ABDOMEN: Positive bowel sounds x 4. Normal tympanic percussion. Soft, tender to palpation in the right flank. No masses or organomegaly. Florian sign negative. No guarding or rebound tenderness. No focal RLQ or LLQ tenderness. MUSCULOSKELETAL: No gross musculoskeletal defects. NEURO: Patient was alert and oriented. No focal neurological deficits. DIFFERENTIAL DIAGNOSIS: Differential diagnosis includes hepatitis, pancreatitis, cholecystitis, cholelithiasis, appendicitis, kidney stone, pyelonephritis, UTI, gastritis, gastroenteritis, mesenteric adenitis, obstruction, constipation, hernia, abdominal abscess, perforation, diverticulitis, IBD, ischemic colitis, abdominal aortic aneurysm, , ectopic , ovarian cyst, ovarian torsion, acute salpingitis, or others. ED COURSE AND MEDICAL DECISION MAKING: MEDICATIONS GIVEN: She was given 1 L normal saline solution bolus. Morphine 4 mg IV, Zofran 4 mg IV, morphine 2 mg IV, and Reglan 10 mg IV. INTERPRETATION OF LABS: I interpreted the labs with full lab results as below in the lab section of this note. White blood cell count elevated at 15.13. Hemoglobin normal at 15.2. Platelet count normal at 264. Coags were normal. Potassium 3.3, anion gap 14, glucose 308, but CMP otherwise essentially unremarkable. Glucose did improve to 162. Lipase normal. Urinalysis with 3+ blood, 2+ glucose, 2+ ketones, 3+ protein, but no evidence for infection. INTERPRETATION OF IMAGING: Imaging studies were interpreted by myself and read by radiology as per the imaging section of this note. CT scan of the abdomen pelvis without contrast showed a 4 mm obstructive stone in the right distal ureter with associated hydronephrosis and hydroureter. CONSULTATIONS: Josie SALAZAR of urology. On-call hospitalist. MDM SUMMARY: I examined the patient. An IV lock was placed and labs were drawn. The patient's CT scan was consistent with a 4 mm kidney stone. The patient was medicated as above, but did continue with pain. The patient has also had multiple episodes of gross hematuria on exam and there is concern since she is on Eliquis. Due to the continue pain from her kidney stone, gross hematuria on Eliquis, and her comorbidities, it was felt the patient required admission for further management. I spoke with urology who agreed with the admission and the patient was made NPO in case of a needed procedure. I spoke with the on-call hospitalist who agreed to admit the patient for further evaluation and treatment. Please refer to their dictation for further evaluation. The patient's care was transferred in stable condition. DIAGNOSIS: Kidney stone Hematuria on Eliquis Diabetes Past Med/Surg History Medical History Atrial flutter Asthma in remission CKD (chronic kidney disease) stage 3, GFR 30-59 ml/min RCA occlusion Chronic systolic heart failure Severe left ventricular systolic dysfunction LBBB (left bundle branch block) Vitamin D deficiency Morbid obesity Spinal stenosis Kidney stones GERD (gastroesophageal reflux disease) Diabetes mellitus, type 2 IDDM Hyperlipidemia Hypertension Surgical History History of nephrolithotomy with removal of calculi History of cholecystectomy History of tonsillectomy History of section x2 Hx of cystoscopy with stone extraction Status post cystoscopy with ureteral stent placement most recent cystoscopy 11/07/19 [place] Family History Mother Pancreatic cancer Diabetes Bilateral kidney stones Sister Bilateral kidney stones Hypertension Father Heart disease Brother Bilateral kidney stones Other No family history of adverse response to anesthesia Social History Smoking Status: Never smoker Second Hand Exposure: No; Do You Dip or Chew Tobacco: No; Hx Alcohol Use: No Hx Substance Use: No Preferred Language: Hungarian Communication Ability: Effective Visual Impairment: No Limitations Strategy Manager Required: No Beliefs That Will Affect Care: None Current Living Situation: Family Other Information That Helps Us Care for You: No Feels Safe at Home: Yes Safety Concerns: Feels Safe At This Time Assistive Devices: Cane Allergies Allergies Allergy/AdvReac Type Severity Reaction Status Date / Time lisinopril Allergy Severe Anaphylaxis Verified 07/11/22 20:55 atorvastatin Allergy Intermediate Hives - Verified 07/11/22 20:55 itchy Home Meds Home Medications Medication Instructions Recorded Confirmed cholecalciferol (vitamin D3) 25 25 mcg PO QAM 07/17/20 03/02/23 mcg (1,000 unit) capsule cyanocobalamin (vitamin B-12) 1,000 mcg PO QAM 07/17/20 03/02/23 1,000 mcg tablet omeprazole magnesium 20 mg 20 mg PO QAM 07/17/20 03/02/23 tablet,delayed release (Prilosec OTC) amlodipine 2.5 mg tablet 2.5 mg PO HS 07/11/22 03/02/23 furosemide 40 mg tablet 40 mg PO QAM 07/11/22 03/02/23 metformin 500 mg tablet 500 mg PO BIDM 07/11/22 03/02/23 losartan 50 mg tablet 50 mg PO DAILY 03/02/23 03/02/23 semaglutide 1 mg/dose (4 mg/3 mL) 0.5 mg subcut WK 03/02/23 03/02/23 subcutaneous pen injector (Ozempic) Previous Rx's Medication Instructions Recorded apixaban 5 mg tablet (Eliquis) 5 mg PO BID 30 days #60 tabs 07/22/20 amiodarone 200 mg tablet 200 mg PO QAM #30 tabs 09/01/20 metoprolol succinate 50 mg 50 mg PO QAM #30 tabs 09/01/20 tablet,extended release 24 hr insulin glargine-yfgn 100 unit/mL 50 unit (0.5 mL) subcut HS #15 mL 12/01/21 (3 mL) subcutaneous pen (Semglee (insulin glargine-yfgn) Pen) oxycodone 5 mg tablet 5 mg PO Q6H PRN pain #15 tabs 07/11/22 Results & Data (ED) Vital Signs Vital Signs - 24 hr 03/02/23 07:40 03/02/23 07:54 03/02/23 09:43 Temperature 36.4 C L Temperature Source Oral Pulse Rate 77 Pulse Rate [Left Apical] 78 Pulse Rhythm [Left Apical] Pulse Strength [Left Apical] Respiratory Rate 20 20 Respiratory Effort / Characteristics Non-Labored Spontaneous Non-Labored Spontaneous Respiratory Depth Normal Normal Respiratory Pattern Blood Pressure 196/93 H Blood Pressure [Left Arm] 208/105 H Blood Pressure Mean 127 Blood Pressure Mean [Left Arm] 139 Pulse Oximetry 96 93 94 Oxygen Delivery Method Room Air Room Air Room Air Sepsis Recent Fever Within 48 Hours No Sepsis New/Unexplained Change in Mental Status N/A Sepsis Action Taken by Nursing No Action Required 03/02/23 10:44 03/02/23 12:03 Temperature Temperature Source Pulse Rate Pulse Rate [Left Apical] 83 87 Pulse Rhythm [Left Apical] Regular Pulse Strength [Left Apical] Normal Respiratory Rate 20 20 Respiratory Effort / Characteristics Non-Labored Spontaneous Non-Labored Spontaneous Respiratory Depth Normal Normal Respiratory Pattern Regular Blood Pressure Blood Pressure [Left Arm] 210/116 H 190/100 H Blood Pressure Mean Blood Pressure Mean [Left Arm] 147 130 Pulse Oximetry 95 94 Oxygen Delivery Method Room Air Room Air Sepsis Recent Fever Within 48 Hours Sepsis New/Unexplained Change in Mental Status Sepsis Action Taken by Nursing Laboratory Data 03/03/23 07:48 03/03/23 11:25 Lab Results 03/02/23 03/02/23 Range/Units 08:00 10:10 WBC 15.13 H (4.8-10.8) K/ul RBC 5.13 (4.20-5.40) M/uL Hgb 15.2 (12.0-16.0) g/dl Hct 44.2 (37.0-47.0) % MCV 86.2 (80.0-100.0) fL MCH 29.6 (25.0-34.0) pg MCHC 34.4 (32.0-36.0) g/dL RDW Std Deviation 38.5 (36.4-46.3) fL RDW Coeff of Nnacy 12.1 (11.5-14.5) % Plt Count 264 (130-400) K/uL MPV 11.8 (9.4-12.4) fL Immature Gran % (Auto) 0.3 % Neut % (Auto) 87.0 % Lymph % (Auto) 9.9 % Bartholomew % (Auto) 2.2 % Eos % (Auto) 0.1 % Baso % (Auto) 0.5 % Neut # (Auto) 13.16 H (1.40-6.50) K/uL Lymph # (Auto) 1.50 (1.20-3.40) K/uL Bartholomew # (Auto) 0.33 (0.11-0.59) K/uL Eos # (Auto) 0.01 (0.00-0.50) K/uL Baso # (Auto) 0.08 (0.00-0.20) K/uL Immature Gran # (Auto) 0.05 (0.01-0.20) K/uL PT 11.4 (9.0-12.0) Seconds INR 1.0 (0.9-1.1) APTT 26.9 (21.0-31.0) Seconds PTT Ratio 1.0 Sodium 139 (136-145) mmol/L Potassium 3.3 L (3.5-5.1) mmol/L Chloride 98 (98-107) mmol/L Carbon Dioxide 27 (21-32) mmol/L Anion Gap 14 H (3-11) BUN 23 (6-23) mg/dl Creatinine 1.07 (0.6-1.2) mg/dl Est Cr Clr Drug Dosing 80.7 ml/min Est GFR ( Amer) 66.7 ml/min Est GFR (Non-Af Amer) 57.6 ml/min BUN/Creatinine Ratio 21.5 H (10-20) Glucose 308 H* (70-99(Fasting)) mg/dl POC Glucose 292 H (70-99) mg/dl Calcium 9.6 (8.6-10.3) mg/dl Total Bilirubin 0.6 (0.2-1.0) mg/dl AST 17 (13-39) U/L ALT 20 (7-52) U/L Alkaline Phosphatase 81 (34-104) U/L Total Protein 8.3 (6.0-8.3) gm/dl Albumin 4.6 (3.4-5.0) gm/dl Globulin 3.7 (2.5-4.0) gm/dl Albumin/Globulin Ratio 1.2 (0.9-2) Lipase 32 (11-82) U/L Urine Color Red Urine Appearance Cloudy A (Clear) Urine pH 7.0 (4.5-7.5) Ur Specific [place] 1.025 (1.000-1.030) Urine Protein 3+ H (Negative) Urine Glucose (UA) 2+ H (Negative) Urine Ketones 2+ H (Negative) Urine Blood 3+ H (Negative) Urine Nitrite Negative (Negative) Urine Bilirubin Negative (Negative) Urine Urobilinogen Negative (Negative) Ur Leukocyte Esterase Negative (Negative) Urine WBC (Auto) 0 (0-5) /hpf Urine RBC (Auto) >30 H (0-4) /hpf U Hyaline Cast (Auto) 0 (0-5) /lpf U Epithel Cells (Auto) 0-5 (0-5) /lpf Urine Bacteria (Auto) Negative (Negative) Urine RBC >30 H (0-4) /hpf Urine WBC 0-5 (0-5) /hpf Ur Epithelial Cells 0-5 (0-5) /lpf Urine Bacteria Negative (Negative) Hyaline Casts 0-5 (0-5) /lpf Other Casts Mixed Cell Cast A (0) /lpf Administered Medications Acetaminophen (Acetaminophen 325 Mg Tab) 650 mg PO Q4H PRN PRN Reason: Pain or Fever Stop: 04/01/23 22:13 Last Admin: 03/03/23 10:50 Dose: 650 mg Documented By: Admin: 03/02/23 22:32 Dose: 650 mg Documented By: MAC Amiodarone HCl (Amiodarone 200 Mg Tab) 200 mg PO QAM [facility] Stop: 04/02/23 08:59 Last Admin: 03/03/23 08:51 Dose: 200 mg Documented By: ZACHARIAH Amlodipine Besylate (Amlodipine Besylate 5 Mg Tab) 2.5 mg PO HS [facility] Stop: 04/01/23 20:59 Last Admin: 03/02/23 21:52 Dose: 2.5 mg Documented By: JAKOB Insulin Aspart (Insulin Aspart Per Unit Charge) 0 units SC ACHS [facility] Stop: 04/01/23 16:29 Last Admin: 03/03/23 12:54 Dose: 6 units Documented By: ZACHARIAH Co-signed By: [id number] Admin: 03/03/23 08:50 Dose: 9 units Documented By: ZACHARIAH Co-signed By: [id number] Admin: 03/02/23 21:51 Dose: 1 units Documented By: JAKOB Co-signed By: QG Admin: 03/02/23 19:16 Dose: Not Given Documented By: JAKOB Insulin Glargine (Lantus Per Unit Charge) 15 units SQ BID [facility] Stop: 04/01/23 20:59 Last Admin: 03/03/23 08:50 Dose: 15 units Documented By: ZACHARIAH Co-signed By: [id number] Admin: 03/02/23 21:51 Dose: 15 units Documented By: JAKOB Co-signed By: QChristi Losartan Potassium (Losartan Potassium 50 Mg Tab) 50 mg [facility] Stop: 04/01/23 12:59 Last Admin: 03/03/23 10:48 Dose: 50 mg Documented By: Admin: 03/02/23 13:20 Dose: 50 mg Documented By: RY Metoprolol Succinate (Metoprolol Succ 50mg Ext Rel Tab) 50 mg [facility] Stop: 04/02/23 08:59 Last Admin: 03/03/23 08:51 Dose: 50 mg Documented By: ZACHARIAH Oxycodone HCl (Oxycodone Hcl Ir 5 Mg Tab (Immediate Release)) 5 mg PO Q8H PRN PRN Reason: Pain Stop: 03/16/23 12:53 Last Admin: 03/02/23 13:12 Dose: 5 mg Documented By: RY Phenazopyridine HCl (Phenazopyridine Hcl 200 Mg Tab) 200 mg PO TID [facility] Stop: 03/06/23 13:59 Last Admin: 03/03/23 12:54 Dose: 200 mg Documented By: Admin: 03/03/23 08:52 Dose: 200 mg Documented By: Admin: 03/02/23 22:32 Dose: 200 mg Documented By: Admin: 03/02/23 13:21 Dose: 200 mg Documented By: RY Discontinued Medications Diatrizoate Meglumine (Diatrizoate Meglumine 30% 100ml Vial) 10 ml INSTIL ONCE ONE Stop: 03/02/23 16:57 Last Admin: 03/02/23 16:56 Dose: 10 ml Documented By: [id number] Sodium Chloride (Nss) 1,000 mls @ 999 mls/hr IV .Q1H1M STA Stop: 03/02/23 08:54 Last Infusion: 03/02/23 09:19 Dose: Infused Documented By: Infusion: 03/02/23 09:19 Dose: 0 mls/hr Documented By: Admin: 03/02/23 08:25 Dose: 999 mls/hr Documented By: KLAUS Acetaminophen (Ofirmev) 1,000 mg in 100 mls @ 400 mls/hr IV NOW STA Stop: 03/02/23 08:08 Last Infusion: 03/02/23 09:19 Dose: Infused Documented By: Admin: 03/02/23 08:26 Dose: 400 mls/hr Documented By: KLAUS Sodium Chloride (Nss) 1,000 mls @ 100 mls/hr IV .Q10H JUAN Stop: 03/02/23 22:44 Last Admin: 03/02/23 19:15 Dose: Not Given Documented By: JAKOB Cefazolin Sodium (Ancef 3000mg) 72.5 mls @ 130 mls/hr IV PREOP JUAN; Protocol Stop: 03/02/23 18:00 Last Infusion: 03/02/23 19:17 Dose: Infused Documented By: Admin: 03/02/23 16:15 Dose: 130 mls/hr Documented By: [id number] Insulin Aspart (Insulin Aspart Per Unit Charge) 5 units SC NOW STA Stop: 03/02/23 13:57 Last Admin: 03/02/23 14:01 Dose: 5 units Documented By: RY Co-signed By: DANIELLE Labetalol HCl (Labetalol Hcl Iv 5 Mg/Ml 20ml) 10 mg IV NOW STA Stop: 03/02/23 12:48 Last Admin: 03/02/23 13:11 Dose: 10 mg Documented By: RY Co-signed By: DANIELLE Metoclopramide HCl (Metoclopramide Hcl Inj 5 Mg/Ml 2 Ml Vial) 10 mg IV NOW STA Stop: 03/02/23 10:00 Last Admin: 03/02/23 10:05 Dose: 10 mg Documented By: KLAUS Morphine Sulfate (Morphine Sulfate 4 Mg/Ml 1 Ml Carp\Vial) 4 mg IV NOW STA Stop: 03/02/23 10:00 Last Admin: 03/02/23 10:05 Dose: 4 mg Documented By: KLAUS Morphine Sulfate (Morphine Sulfate 2 Mg/Ml Carp) 2 mg IV NOW STA Stop: 03/02/23 11:44 Last Admin: 03/02/23 12:00 Dose: 2 mg Documented By: RY Ondansetron HCl (Ondansetron Inj 2 Mg/Ml 2 Ml Vial) 4 mg IV NOW STA Stop: 03/02/23 07:55 Last Admin: 03/02/23 08:25 Dose: 4 mg Documented By: KLAUS Potassium Chloride (Potassium Chloride Crtab 20 Meq Tabcr) 40 meq PO NOW STA Stop: 03/02/23 12:37 Last Admin: 03/02/23 13:12 Dose: 40 meq Documented By: RY Tamsulosin HCl (Tamsulosin Hcl 0.4 Mg Cap) 0.4 mg PO NOW ONE Stop: 03/02/23 10:08 Last Admin: 03/02/23 10:47 Dose: 0.4 mg Documented By: KLAUS Imaging Data Radiologist's Impression: Retrograde Pyelogram 03/02/23 00:00 [place] retrograde includes kub CLINICAL HISTORY: CYSTO ADD ONright-sided cystourethrogram COMPARISON STUDY: CT of same day FLUOROSCOPY TIME: 13.3 seconds FLUOROSCOPY IMAGES: 2 EXPOSURE DOSE: 7.95 mGy FINDINGS: There is persistent right-sided hydronephrosis. Status post placement of a right-sided ureteral stent which appears to be in satisfactory positioning. IMPRESSION: Fluoroscopic assistance as above. ACT 112: Negative or not required by law. Electronically signed by: Antoni Devine M.D. 03/02/2023 4:51 PM Abdomen/Pelvis CT 03/02/23 07:54 CT abd pelvis wo con CLINICAL HISTORY: Right flank pain - eval kidney stone TECHNIQUE: Helical axial images of the abdomen and pelvis were obtained. Automated dose lowering techniques and/or adjustment according to patient size were utilized for this exam. This exam was performed without intravenous contrast. CT DOSE: 1394.35 mGy.cm COMPARISON: None available at the time of this dictation. FINDINGS: Lower chest: No acute abnormality. Liver: Unremarkable. No focal lesions are seen. Gallbladder and biliary tree: Patient is status post cholecystectomy. No intra- or extrahepatic biliary ductal dilation. Pancreas: Fatty replacement of the pancreas is seen. Spleen: Unremarkable. Adrenals: Unremarkable. Kidneys and ureters: Nonobstructive stones are seen on the left. There is right hydronephrosis and hydroureter with a distal ureteric stone measuring approximately 4 mm. Right perinephric stranding is seen with additional nonobstructive stones. Bladder: Unremarkable. Reproductive organs: Unremarkable. Bowel: The appendix is normal. Lymph nodes Retroperitoneal: Subcentimeter lymph nodes are noted. Pelvic: Unremarkable. Mesenteric: Unremarkable. Peritoneum: 12 mm soft tissue nodule in the right upper quadrant is unchanged from prior exam. Vessels: Unremarkable. Abdominal wall: Unremarkable. Bones: Degenerative changes in the visualized spine. IMPRESSION: Obstructive stone in the right distal ureter with associated hydronephrosis and hydroureter. Additional nonobstructive stones are seen bilaterally. ACT 112: Negative or not required by law. Electronically signed by: Anil Hooper M.D. 03/02/2023 8:22 AM Discharge Plan Visit Data Chief Complaint: Kidney Stone Stated Complaint: KIDNEY STONESPAIN ED Provider: Filemon Manuel ED Midlevel Provider: Fior Meredith Discharge Problem: Ureteral stone with hydronephrosis, Uncontrolled diabetes mellitus with hyperglycemia, Hematuria, Anticoagulated Patient Disposition: Admitted As Inpatient Condition: Good Discharge Instructions Interventions: ED Discharge Assessment Last Done: 03/02/23 15:39 Discharge Problem: Hematuria Qualifiers: Hematuria type: gross Qualified Code(s): R31.0 - Gross hematuria
[2023-03-02] MEDS ORDERED: ACETAMINOPHEN 1,000 MG/100 ML VIAL IV STA (07:54)
[2023-03-02] MEDS ORDERED: ONDANSETRON INJ 2 MG/ML 2 ML VIAL IV STA (07:54)
[2023-03-02] MEDS ORDERED: SODIUM CHLORIDE 0.9% 1,000 ML IV STA (07:54)
[2023-03-02 08:10] LABS: Basophils # (auto) 0.08 K/uL (0.00-0.20); Basophils % (auto) 0.5 %; Eosinophils # (auto) 0.01 K/uL (0.00-0.50); Eosinophils % (auto) 0.1 %; Hematocrit (blood only) 44.2 % (37.0-47.0); Hemoglobin 15.2 g/dl (12.0-16.0); Immature Granulocytes # (auto) 0.05 K/uL (0.01-0.20); Immature Granulocytes % (auto) 0.3 %; Lymphocytes % (auto) 9.9 %; Mean Corpuscular Hemoglobin 29.6 pg (25.0-34.0); Mean Corpuscular Hgb Conc 34.4 g/dL (32.0-36.0); Mean Corpuscular Volume 86.2 fL (80.0-100.0); Mean Platelet Volume 11.8 fL (9.4-12.4); Monocytes # (auto) 0.33 K/uL (0.11-0.59); Monocytes % (auto) 2.2 %; Neutrophils # (auto) 13.16 K/uL (1.40-6.50); Platelet Count 264 K/uL (130-400); RDW Coefficient of Variation 12.1 % (11.5-14.5); RDW Standard Deviation 38.5 fL (36.4-46.3); Red Blood Count 5.13 M/uL (4.20-5.40); White Blood Count 15.13 K/ul (4.8-10.8)
[2023-03-02 08:24] LABS: Bilirubin Urine Negative (Negative); Blood Urine 3+ (Negative); Glucose Urine UA 2+ (Negative); Ketones Urine 2+ (Negative); Leukocyte Esterase Urine Negative (Negative); Nitrite Urine Negative (Negative); Protein Urine 3+ (Negative); Specific Gravity Urine 1.025 (1.000-1.030); Urobilinogen Urine Negative (Negative)
[2023-03-02 08:25] LABS: Appearance Urine Cloudy (Clear); Color Urine Red; Partial Thromboplastin Time 26.9 Seconds (21.0-31.0); Prothrombin Time 11.4 Seconds (9.0-12.0)
--- NOTE | 2023-03-02 08:25 | CT Scan Report ---
CT abd pelvis wo con CLINICAL HISTORY: Right flank pain - eval kidney stone TECHNIQUE: Helical axial images of the abdomen and pelvis were obtained. Automated dose lowering tech niques and/or adjustment according to patient size were utilized for this exam. This exam was perfor med without intravenous contrast. CT DOSE: 1394.35 mGy.cm COMPARISON: None available at the time of this dictation. FINDINGS: Lower chest: No acute abnormality. Liver: Unremarkable. No focal lesions are seen. Gallbladder and biliary tree: Patient is status post cholecystectomy. No intra- or extrahepatic bilia ry ductal dilation. Pancreas: Fatty replacement of the pancreas is seen. Spleen: Unremarkable. Adrenals: Unremarkable. Kidneys and ureters: Nonobstructive stones are seen on the left. There is right hydronephrosis and hy droureter with a distal ureteric stone measuring approximately 4 mm. Right perinephric stranding is s een with additional nonobstructive stones. Bladder: Unremarkable. Reproductive organs: Unremarkable. Bowel: The appendix is normal. Lymph nodes Retroperitoneal: Subcentimeter lymph nodes are noted. Pelvic: Unremarkable. Mesenteric: Unremarkable. Peritoneum: 12 mm soft tissue nodule in the right upper quadrant is unchanged from prior exam. Vessels: Unremarkable. Abdominal wall: Unremarkable. Bones: Degenerative changes in the visualized spine. IMPRESSION: Obstructive stone in the right distal ureter with associated hydronephrosis and hydroureter. Addition al nonobstructive stones are seen bilaterally. ACT 112: Negative or not required by law. Electronically signed by: Anil Hooper M.D. 03/02/2023 8:22 AM
[2023-03-02 08:28] LABS: RBC Urine Automated >30 /hpf (0-4)
[2023-03-02 08:30] LABS: Bacteria Urine Automated Negative (Negative); Cast Urine Automated 0 /lpf (0-5); Epithelial Cell Urine Auto 0-5 /lpf (0-5); WBC Urine Automated 0 /hpf (0-5)
[2023-03-02 08:32] LABS: Bacteria Urine Negative (Negative); Epithelial Cell Urine 0-5 /lpf (0-5); Hyaline Casts Urine 0-5 /lpf (0-5); RBC Urine >30 /hpf (0-4); WBC Urine 0-5 /hpf (0-5)
[2023-03-02 08:37] LABS: Albumin Level 4.6 gm/dl (3.4-5.0); Bilirubin,Total 0.6 mg/dl (0.2-1.0); Calcium 9.6 mg/dl (8.6-10.3); Potassium 3.3 mmol/L (3.5-5.1)
[2023-03-02 08:57] LABS: Albumin Globulin Ratio 1.2 (0.9-2); BUN Creatinine Ratio 21.5 (10-20); Creatinine Clr Calc Pharmacy 80.7 ml/min; Est GFR (African American) 66.7 ml/min; Est GFR (Non-African American) 57.6 ml/min; Globulin 3.7 gm/dl (2.5-4.0); Total Protein 8.3 gm/dl (6.0-8.3)
[2023-03-02] MEDS ORDERED: METOCLOPRAMIDE HCL INJ 5 MG/ML 2 ML VIAL IV STA (09:59)
[2023-03-02] MEDS ORDERED: MoRPHine SULFATE 4 MG/ML 1 ML CARP\\VIAL IV STA (09:59)
[2023-03-02] MEDS ORDERED: TAMSULOSIN HCL 0.4 MG CAP PO ONE (10:07)
[2023-03-02] MEDS ORDERED: MoRPHine SULFATE 2 MG/ML CARP IV STA (11:43)
--- NOTE | 2023-03-02 12:05 | History & Physical Report ---
Date of Service March 02, 2023 Assessment & Plan (1) Ureteral stone with hydronephrosis: Plan: This is a 57 y/o female with a PMH of recurrent nephrolithiasis, atrial flutter, dilated cardiomyopathy with severe LV dysfunction (EF ~20%), insulin-requiring DM, HTN, GERD, and dyslipidemia who presents to the ED today with right flank pain and hematuria. Work-up in the ED reveals an obstructing 4 mm stone in the distal ureter with resultant right hydroureter and hydronephrosis. Does not appear to have a resulting CEDRIC. Has been afebrile. History of multiple prior episodes of nephrolithiasis in the past requiring intervention. Also noted to have elevated BP consistent with hypertensive urgency, likely multifactorial due to missed medications and the pain. Glucose over 300 initially, last A1c in Dec was 10.4 so diabetes has been uncontrolled though pt working on this with her PCP. - Admit to med telemetry due to elevated BP and cardiac history - Consult urology - will keep pt NPO until seen in case intervention is needed today, holding Eliquis. - Give IV labetalol 10 mg x 1 dose, losartan 50 mg po x 1 in the ED and recheck BP, resume other BP meds tomorrow. Holding furosemide for now to avoid dehydration. - Will give 5 units insulin subQ for hyperglycemia, then continue with basal/sliding scale coverage. Could consider Jardiance at discharge in view of her history of heart failure with decreased EF (in 2020, 45%) and diabetes. - Continue gentle IVF for another liter then reassess due to history of HF - Labs in the AM - CBC, BMP, A1c - Check portable chest x-ray due to hypoxia in the ED, likely secondary to narcotics that pt received. Wean O2 as able - EKG to evaluate QTc before ordering anti-emetics (2) Uncontrolled diabetes mellitus with hyperglycemia: (3) Hypertensive urgency: (4) Hypokalemia: Plan: Oral repletion ordered. (5) Atrial flutter: (6) Chronic systolic heart failure: (7) Morbid obesity: Plan Pt seen and reviewed with collaborating physician, Dr. Coyne. Plan of care discussed and as outlined above. Code Status: Full code Holding Eliquis for anticipated procedure - will resume post-op once okay with urology. Due to gross hematuria, will not start heparin gtt at this time. Perla Kern PA-C History of Present Illness Chief Complaint: right flank pain, blood in the urine since 2 am Primary Care Provider: Jessica Taylor MD This is a 57 y/o female with a PMH of recurrent nephrolithiasis, atrial flutter, dilated cardiomyopathy with severe LV dysfunction (EF ~20%), insulin-requiring DM, HTN, GERD, and dyslipidemia who presents to the ED today with right flank pain and hematuria. Pt reports that she was in her usual state of health yesterday. Around 2 am last night, she had the sudden onset of right flank pain which is radiating to her right lower quadrant and right groin at times. She describes the pain as constant but states that it waxes and wanes in intensity. She has associated nausea and has vomited three times at home, once in the ED. Some relief with the Zofran given. Pain partially relieved by the morphine given in the ED but still present. She also notes gross hematuria since the pain started, which has continued here in the ED. She notes urinary frequency but denies dysuria or difficulty urinating. She reports a prior history of kidney stones and has been trying to get into urology as an outpatient (she missed her last appt due to car trouble, previously followed with Dr. Henao). She reports multiple urology interventions previously including lithotripsy and stent placement but last stone requiring intervention was at least a couple of years ago. She denies fevers or chills but may have sweats with the pain. Last dose of Eliquis, which she is on for atrial flutter, was last night. Missed all of her morning medications today including BP meds. Took her glargine insulin last night. Denies chest pain, palpitations, dyspnea, SHEPHERD, or dizziness. Allergies Allergy/AdvReac Type Severity Reaction Status Date / Time lisinopril Allergy Severe Anaphylaxis Verified 07/11/22 20:55 atorvastatin Allergy Intermediate Hives - Verified 07/11/22 20:55 itchy Home Medications Medication Instructions Recorded Confirmed Type cholecalciferol (vitamin D3) 25 25 mcg PO QAM 07/17/20 03/02/23 History mcg (1,000 unit) capsule cyanocobalamin (vitamin B-12) 1,000 mcg PO QAM 07/17/20 03/02/23 History 1,000 mcg tablet omeprazole magnesium 20 mg 20 mg PO QAM 07/17/20 03/02/23 History tablet,delayed release (Prilosec OTC) apixaban 5 mg tablet (Eliquis) 5 mg PO BID 30 days #60 tabs 07/22/20 03/02/23 Rx amiodarone 200 mg tablet 200 mg PO QAM #30 tabs 09/01/20 03/02/23 Rx metoprolol succinate 50 mg 50 mg PO QAM #30 tabs 09/01/20 03/02/23 Rx tablet,extended release 24 hr insulin glargine-yfgn 100 unit/mL 50 unit (0.5 mL) subcut HS #15 mL 12/01/21 03/02/23 Rx (3 mL) subcutaneous pen (Semglee (insulin glargine-yfgn) Pen) amlodipine 2.5 mg tablet 2.5 mg PO HS 07/11/22 03/02/23 History furosemide 40 mg tablet 40 mg PO QAM 07/11/22 03/02/23 History metformin 500 mg tablet 500 mg PO BIDM 07/11/22 03/02/23 History oxycodone 5 mg tablet 5 mg PO Q6H PRN pain #15 tabs 07/11/22 03/02/23 Rx losartan 50 mg tablet 50 mg PO DAILY 03/02/23 03/02/23 History semaglutide 1 mg/dose (4 mg/3 mL) 0.5 mg subcut WK 03/02/23 03/02/23 History subcutaneous pen injector (Ozempic) Past Med/Surg History Medical History (Updated 03/02/23 @ 13:44 by Latha Kern PA-C) Atrial flutter Asthma in remission CKD (chronic kidney disease) stage 3, GFR 30-59 ml/min RCA occlusion Chronic systolic heart failure Severe left ventricular systolic dysfunction LBBB (left bundle branch block) Vitamin D deficiency Morbid obesity Spinal stenosis Kidney stones GERD (gastroesophageal reflux disease) Diabetes mellitus, type 2 IDDM Hyperlipidemia Hypertension Surgical History History of nephrolithotomy with removal of calculi History of cholecystectomy History of tonsillectomy History of section x2 Hx of cystoscopy with stone extraction Status post cystoscopy with ureteral stent placement most recent [place] 11/07/19 [place] Family History Mother Pancreatic cancer Diabetes Bilateral kidney stones Sister Bilateral kidney stones Hypertension Father Heart disease Brother Bilateral kidney stones Other No family history of adverse response to anesthesia Social History Smoking Status: Never smoker Second Hand Exposure: No; Do You Dip or Chew Tobacco: No; Hx Alcohol Use: No Hx Substance Use: No Preferred Language: Russian Communication Ability: Effective Visual Impairment: No Limitations Electrical Prospecting Observer Required: No Beliefs That Will Affect Care: None Current Living Situation: Family Feels Safe at Home: Yes Assistive Devices: None Review of Systems Review of Systems: All systems reviewed & are unremarkable except as noted in HPI & below Constitutional: + sweats; no fever and no chills Eyes: no diplopia Ear, Nose, Mouth, Throat: no nasal congestion and no sore throat Respiratory: no cough and no dyspnea Cardiovascular: no chest pain, no palpitations and no syncope Gastrointestinal: + nausea and + vomiting; no diarrhea/loo se stools and no blood in stools Genitourinary: + urinary frequency, + hematuria and + f lank pain; no dysuria and no difficulty urinating Musculoskeletal: + back pain Integumentary: no yellowing of the skin Neurologic: no seizure-like activity, no headache(s) and no confusion Physical Exam Physical Exam: General: pt lying in bed, occasionally shifting position due to discomfort, appears uncomfortable Eyes: no scleral icterus Heart: RRR Lungs: diminished BS on the anterior but clear Abdomen: soft, obese, tender in the right flank > right abdomen (LQ >UQ), +BS, no guarding or rebound, +right CVA tenderness, Extremities: radial pulses intact Skin: no jaundice Neuro: no confusion, no dysarthria, moving all extremities Results & Data Results & Data Vital Signs (Past 12 Hours) Vital Signs Temp Pulse Pulse Resp BP BP Pulse Ox 03/02/23 12:03 87 20 190/100 H 94 03/02/23 10:44 83 20 210/116 H 95 03/02/23 09:43 78 20 208/105 H 94 03/02/23 07:54 93 03/02/23 07:40 36.4 C L 77 20 196/93 H 96 O2 Del Method 03/02/23 12:03 Room Air 03/02/23 10:44 Room Air 03/02/23 09:43 Room Air 03/02/23 07:54 Room Air 03/02/23 07:40 Room Air Laboratory Results Laboratory Results - last 24 hr 03/02/23 03/02/23 08:00 10:10 WBC 15.13 H RBC 5.13 Hgb 15.2 Hct 44.2 MCV 86.2 MCH 29.6 MCHC 34.4 RDW Std Deviation 38.5 RDW Coeff of Nancy 12.1 Plt Count 264 MPV 11.8 Immature Gran % (Auto) 0.3 Neut % (Auto) 87.0 Lymph % (Auto) 9.9 [place] % (Auto) 2.2 Eos % (Auto) 0.1 Baso % (Auto) 0.5 Neut # (Auto) 13.16 H Lymph # (Auto) 1.50 [place] # (Auto) 0.33 Eos # (Auto) 0.01 Baso # (Auto) 0.08 Immature Gran # (Auto) 0.05 PT 11.4 INR 1.0 APTT 26.9 PTT Ratio 1.0 Sodium 139 Potassium 3.3 L Chloride 98 Carbon Dioxide 27 Anion Gap 14 H BUN 23 Creatinine 1.07 Est Cr Clr Drug Dosing 80.7 Est GFR ( Amer) 66.7 Est GFR (Non-Af Amer) 57.6 BUN/Creatinine Ratio 21.5 H Glucose 308 H* POC Glucose 292 H Calcium 9.6 Total Bilirubin 0.6 AST 17 ALT 20 Alkaline Phosphatase 81 Total Protein 8.3 Albumin 4.6 Globulin 3.7 Albumin/Globulin Ratio 1.2 Lipase 32 Urine Color Red Urine Appearance Cloudy A Urine pH 7.0 Ur Specific [place] 1.025 Urine Protein 3+ H Urine Glucose (UA) 2+ H Urine Ketones 2+ H Urine Blood 3+ H Urine Nitrite Negative Urine Bilirubin Negative Urine Urobilinogen Negative Ur Leukocyte Esterase Negative Urine WBC (Auto) 0 Urine RBC (Auto) >30 H U Hyaline Cast (Auto) 0 U Epithel Cells (Auto) 0-5 Urine Bacteria (Auto) Negative Urine RBC >30 H Urine WBC 0-5 Ur Epithelial Cells 0-5 Urine Bacteria Negative Hyaline Casts 0-5 Other Casts Mixed Cell Cast A Diagnostic Findings Abdomen/Pelvis CT 03/02/23 07:54 CT abd pelvis wo con CLINICAL HISTORY: Right flank pain - eval kidney stone TECHNIQUE: Helical axial images of the abdomen and pelvis were obtained. Automated dose lowering techniques and/or adjustment according to patient size were utilized for this exam. This exam was performed without intravenous contrast. CT DOSE: 1394.35 mGy.cm COMPARISON: None available at the time of this dictation. FINDINGS: Lower chest: No acute abnormality. Liver: Unremarkable. No focal lesions are seen. Gallbladder and biliary tree: Patient is status post cholecystectomy. No intra- or extrahepatic biliary ductal dilation. Pancreas: Fatty replacement of the pancreas is seen. Spleen: Unremarkable. Adrenals: Unremarkable. Kidneys and ureters: Nonobstructive stones are seen on the left. There is right hydronephrosis and hydroureter with a distal ureteric stone measuring approximately 4 mm. Right perinephric stranding is seen with additional nonobstructive stones. Bladder: Unremarkable. Reproductive organs: Unremarkable. Bowel: The appendix is normal. Lymph nodes Retroperitoneal: Subcentimeter lymph nodes are noted. Pelvic: Unremarkable. Mesenteric: Unremarkable. Peritoneum: 12 mm soft tissue nodule in the right upper quadrant is unchanged from prior exam. Vessels: Unremarkable. Abdominal wall: Unremarkable. Bones: Degenerative changes in the visualized spine. IMPRESSION: Obstructive stone in the right distal ureter with associated hydronephrosis and hydroureter. Additional nonobstructive stones are seen bilaterally. ACT 112: Negative or not required by law. Electronically signed by: Anil Hooper M.D. 03/02/2023 8:22 AM Medications Administered Discontinued Medications Sodium Chloride (Nss) 1,000 mls @ 999 mls/hr IV .Q1H1M STA Stop: 03/02/23 08:54 Last Infusion: 03/02/23 09:19 Dose: Infused Documented By: Infusion: 03/02/23 09:19 Dose: 0 mls/hr Documented By: Admin: 03/02/23 08:25 Dose: 999 mls/hr Documented By: KLAUS Acetaminophen (Ofirmev) 1,000 mg in 100 mls @ 400 mls/hr IV NOW STA Stop: 03/02/23 08:08 Last Infusion: 03/02/23 09:19 Dose: Infused Documented By: Admin: 03/02/23 08:26 Dose: 400 mls/hr Documented By: KLAUS Metoclopramide HCl (Metoclopramide Hcl Inj 5 Mg/Ml 2 Ml Vial) 10 mg IV NOW STA Stop: 03/02/23 10:00 Last Admin: 03/02/23 10:05 Dose: 10 mg Documented By: KLAUS Morphine Sulfate (Morphine Sulfate 4 Mg/Ml 1 Ml Carp\Vial) 4 mg IV NOW STA Stop: 03/02/23 10:00 Last Admin: 03/02/23 10:05 Dose: 4 mg Documented By: TW Morphine Sulfate (Morphine Sulfate 2 Mg/Ml Carp) 2 mg IV NOW STA Stop: 03/02/23 11:44 Last Admin: 03/02/23 12:00 Dose: 2 mg Documented By: RY Ondansetron HCl (Ondansetron Inj 2 Mg/Ml 2 Ml Vial) 4 mg IV NOW STA Stop: 03/02/23 07:55 Last Admin: 03/02/23 08:25 Dose: 4 mg Documented By: KLAUS Tamsulosin HCl (Tamsulosin Hcl 0.4 Mg Cap) 0.4 mg PO NOW ONE Stop: 03/02/23 10:08 Last Admin: 03/02/23 10:47 Dose: 0.4 mg Documented By: KLAUS Supervising Physician Co-Signing Physician Notes I have seen and examined the patient and have discussed the case with the provider above. I agree with the assessment and plan as stated. 56 yo uncontrolled insulin-dependent diabetic female with morbid obesity presents with acute right sided flank pain since 0200 this morning. She has suffered kidney stones in the past. She reports gross hematuria and is on apixaban. Her glucose is uncontrolled despite taking her Semglee (glargine) 50 Units last night with her last meal, which was around 1800. She has been having intermittent vomiting related to pain and her BP is uncontrolled with systolic > 200. She did not take her Lasix 40mg, Toprol XL 50mg or losartan 50mg this morning On exam she is in mild distress, lying flat with minimal movement with the overhead light out. She is morbidly obese. Abdomen is soft NTND. Limited movement given her propensity to vomit and pain limits the exam. CVA tenderness as noted above. Lungs clear throughout and she is mentating clearly. Medications/Labs/imaging reviewed. EKG is pending. Notably her WBC count is 15K, K is 3.3 and she has normal renal function. UA with no evidence of infection. Glucosuria and ketonuria is present. Glucose is elevated to 308. Distal ureteral stone 4mm present on CT a/p with associated hydronephrosis and hydroureter. Additional nonobstructive stones also seen. 1. Ureteral colic 2/2 right ureteral stone wtih assoc hydronephrosis-hold apixaban. 2. Hypoxia-transient and likely related to morphine administration in the ER. CXR is pending. 3. Gross hematuria-no evidence of anemia. Hold anticoagulation. 4. Hypertensive urgency-multifactorial 2/2 noncompliance with antihypertensive therapy this morning and uncontrolled pain and vomiting. Labetalol given in the ER. Cont PO losartan as tolerating. Hold Lasix given that dehydration may worsen symptoms. 5. Vomiting-2/2 pain and pain medications 6. Hypokalemia in setting of home lasix use and poor PO intake this morning/vomiting-replacement given 7. Uncontrolled DMII wtih hyperglycemia-hold Ozepmic and morphine. Cont with basal/bolus insulin 8. Morbid obesity DO [place] (2) Uncontrolled diabetes mellitus with hyperglycemia Diabetes mellitus type: type 2 Qualified Code(s): E11.65 - Type 2 diabetes mellitus with hyperglycemia (5) Atrial flutter Atrial flutter type: atypical Qualified Code(s): I48.4 - Atypical atrial flutter
[2023-03-02] MEDS ORDERED: NITROGLYCERIN SL 0.4 MG/TAB TAB SL PRN (12:33)
[2023-03-02] MEDS ORDERED: POTASSIUM CHLORIDE CRTAB 20 MEQ TABCR PO STA (12:36)
[2023-03-02] MEDS ORDERED: DEXTROSE 50% 50 ML SYRINGE IV PRN (12:43)
[2023-03-02] MEDS ORDERED: GLUCOSE 40% GEL 15 GM TUBE PO PRN (12:43)
[2023-03-02] MEDS ORDERED: CARBOHYDRATES FOR HYPOGLYCEMIA PO PRN (12:43)
[2023-03-02] MEDS ORDERED: GLUCOSE 10 TAB/TUBE PO PRN (12:43)
[2023-03-02] MEDS ORDERED: GLUCAGON FOR INJ 1 MG VIAL SQ PRN (12:43)
[2023-03-02] MEDS ORDERED: SODIUM CHLORIDE 0.9% 1,000 ML IV SCH (12:45)
[2023-03-02] MEDS ORDERED: LABETALOL HCL IV 5 MG/ML 20ML IV STA (12:47)
[2023-03-02] MEDS ORDERED: oxyCODONE HCL IR 5 MG TAB (IMMEDIATE RELEASE) PO PRN (12:54)
[2023-03-02] MEDS: LOSARTAN POTASSIUM 50 MG TAB PO SCH (13:20)
[2023-03-02] MEDS: PHENAZOPYRIDINE HCL 200 MG TAB PO SCH ×2 (13:21→22:32)
--- NOTE | 2023-03-02 13:53 | XRay Report ---
XR chest 1V portable CLINICAL HISTORY: hypoxia, hx CHF TECHNIQUE: Single frontal radiograph of the chest was obtained. Comparison: Comparison is made to chest radiograph 11/28/2021 FINDINGS: Exam is limited by underpenetration. Cardiomegaly is noted. The lungs are clear. No evidence of pleur al effusion or pneumothorax. IMPRESSION: No acute chest disease. ACT 112: Negative or not required by law. Electronically signed by: Anil Hooper M.D. 03/02/2023 1:52 PM
[2023-03-02] MEDS ORDERED: INSULIN ASPART PER UNIT CHARGE SC STA (13:56)
--- NOTE | 2023-03-02 14:46 | Urology Consultation ---
Date of Consultation March 02, 2023 Assessment & Plan (1) Ureteral stone with hydronephrosis: Plan 57yo/F admitted with hypertensive urgency, intractable right flank pain, and hematuria. CT abdomen pelvis notable for an obstructing 4mm distal right ureteral stone and additional bilateral nephrolithiasis. - Afebrile, hypertensive. - Labs reviewed-WBC 15.13, hemoglobin 15.2, creatinine 1.07. - Urinalysis with 3+blood, negative bacteria, negative nitrite - We discussed acute stone management with cystoscopy and stent placement. Ureteral stents were discussed as well as postoperative issues and pain management. She is aware a second procedure will be needed for stone treatment. We discussed conservative management and trial of passage. Stone passage rates given size and location were discussed. Risks and benefits of each were discussed. All questions were answered. - Given her intractable right flank pain, she prefers to proceed with cystoscopy, right retrograde pyelogram, right ureteral stent placement. - Risks and benefits discussed as per consent. - Continue supportive care and pain management. - Will cover with Ancef preoperatively. - Urology will follow. Plan of care reviewed with Dr. Jiang, on-call urologist Attending note: Patient independently assessed, examined, interviewed, and evaluated. Agree with note as above. Patient's vitals and labs were all reviewed. Pertinent values in the HPI and plan section. Imaging was reviewed interpreted by myself. Agree with read. Vitals were reviewed. Discussed findings extensively with patient and family. Reviewed with nurse practitioner as well as consulting physicians/team. Patient's complicated medical and surgical history was reviewed and summarized above. Patient's surgical, medical, social, and family history were all reviewed with pertinent values as above. Discussed patient's current diagnosis as well as concerns and issues. Reviewed different options moving forward. Discussed potential risks and benefits as well as possible options and concerns. Reviewed potential surgical options and interventions. Discussed potential issues and concerns related to intervention. Risk and benefits were discussed extensively with patient and any available family. Discussed potential risks related to anesthesia. Discussed risks of bleeding infection and injury. Risks and benefits discussed at length for procedure. These include bleeding, infection, injury to surrounding tissues or organs, and risks associated with anesthesia. Patient states understanding and agrees to proceed. Will sign consent and schedule. Plan for cystoscopy with right stent placement. History of Present Illness History of Present Illness 57 year old female with a PMHx of recurrent nephrolithiasis, atrial flutter, dilated cardiomyopathy with severe LV dysfunction, insulin-requiring DM, HTN, GERD, and dyslipidemia who presents to the ED today with right flank pain, nausea, vomiting, and hematuria. On arrival she was afebrile and hypertensive. Labs showing WBC of 15.13, hemoglobin 15.2, creatinine 1.07. Urinalysis with 3+ blood, negative nitrite, negative LE, negative bacteria. CT abdomen pelvis obtained and notable for an obstructive stone in the right distal ureter with associated hydronephrosis and hydroureter and additional nonobstructive bilateral renal stones. She was given IV fluids, morphine, Zofran in the ED. Last dose of Eliquis was last night. Patient admitted to medicine service for continued care. CT abdomen pelvis - Obstructive stone in the right distal ureter with associated hydronephrosis and hydroureter. Additional nonobstructive stones are seen bilaterally. Patient examined at bedside in the ED. Awake, resting in bed on arrival. No acute distress. Still with right flank pain, but has improved with medication. Denies fevers or chills. She did have some sweats at home and nausea/vomiting due to pain. Has had some hematuria and dysuria. Has been NPO. History of stones with prior interventions. She reports tolerating stents well in the past. Allergies Allergy/AdvReac Type Severity Reaction Status Date / Time lisinopril Allergy Severe Anaphylaxis Verified 07/11/22 20:55 atorvastatin Allergy Intermediate Hives - Verified 07/11/22 20:55 itchy Home Medications Medication Instructions Recorded Confirmed Type cholecalciferol (vitamin D3) 25 25 mcg PO QAM 07/17/20 03/02/23 History mcg (1,000 unit) capsule cyanocobalamin (vitamin B-12) 1,000 mcg PO QAM 07/17/20 03/02/23 History 1,000 mcg tablet omeprazole magnesium 20 mg 20 mg PO QAM 07/17/20 03/02/23 History tablet,delayed release (Prilosec OTC) apixaban 5 mg tablet (Eliquis) 5 mg PO BID 30 days #60 tabs 07/22/20 03/02/23 Rx amiodarone 200 mg tablet 200 mg PO QAM #30 tabs 09/01/20 03/02/23 Rx metoprolol succinate 50 mg 50 mg PO QAM #30 tabs 09/01/20 03/02/23 Rx tablet,extended release 24 hr insulin glargine-yfgn 100 unit/mL 50 unit (0.5 mL) subcut HS #15 mL 12/01/21 03/02/23 Rx (3 mL) subcutaneous pen (Semglee (insulin glargine-yfgn) Pen) amlodipine 2.5 mg tablet 2.5 mg PO HS 07/11/22 03/02/23 History furosemide 40 mg tablet 40 mg PO QAM 07/11/22 03/02/23 History metformin 500 mg tablet 500 mg PO BIDM 07/11/22 03/02/23 History oxycodone 5 mg tablet 5 mg PO Q6H PRN pain #15 tabs 07/11/22 03/02/23 Rx losartan 50 mg tablet 50 mg PO DAILY 03/02/23 03/02/23 History semaglutide 1 mg/dose (4 mg/3 mL) 0.5 mg subcut WK 03/02/23 03/02/23 History subcutaneous pen injector (Ozempic) Patient History Medical History Atrial flutter Asthma in remission CKD (chronic kidney disease) stage 3, GFR 30-59 ml/min RCA occlusion Chronic systolic heart failure Severe left ventricular systolic dysfunction LBBB (left bundle branch block) Vitamin D deficiency Morbid obesity Spinal stenosis Kidney stones GERD (gastroesophageal reflux disease) Diabetes mellitus, type 2 IDDM Hyperlipidemia Hypertension Surgical History History of nephrolithotomy with removal of calculi History of cholecystectomy History of tonsillectomy History of section x2 Hx of cystoscopy with stone extraction Status post cystoscopy with ureteral stent placement most [place] 11[place]07/19 [place] Family History Mother Pancreatic cancer Diabetes Bilateral kidney stones Sister Bilateral kidney stones Hypertension Father Heart disease Brother Bilateral kidney stones Other No family history of adverse response to anesthesia Social History Smoking Status: Never smoker Second Hand Exposure: No; Do You Dip or Chew Tobacco: No; Hx Alcohol Use: No Hx Substance Use: No Preferred Language: Sami Communication Ability: Effective Visual Impairment: No Limitations Print Line Operator Required: No Beliefs That Will Affect Care: None Current Living Situation: Family Feels Safe at Home: Yes Assistive Devices: None Review of Systems Review of Systems: All systems reviewed & are unremarkable except as noted in HPI & below Physical Exam Constitutional: no acute distress Appears uncomfortable Eyes: PERRL, conjunctivae normal, anicteric sclerae ENMT: Ears: no external ear abnormality Neck: normal visual inspection Respiratory: no respiratory distress and no labored breathing Musculoskeletal: Head/Neck/Chest: normocephalic Skin: No visible rashes or lesions to exposed skin areas Neurologic: moves all extremities and awake Psychiatric: A+Ox3, euthymic affect Results & Data Vital Signs (Past 12 Hours) Vital Signs Temp Pulse Pulse Resp BP BP Pulse Ox 03/02/23 12:03 87 20 190/100 H 94 03/02/23 10:44 83 20 210/116 H 95 03/02/23 09:43 78 20 208/105 H 94 03/02/23 07:54 93 03/02/23 07:40 36.4 C L 77 20 196/93 H 96 O2 Del Method 03/02/23 12:03 Room Air 03/02/23 10:44 Room Air 03/02/23 09:43 Room Air 03/02/23 07:54 Room Air 03/02/23 07:40 Room Air PG Care Time/CCT Total # of Minutes Spent Total Time Spent with Patient: Total time spent is greater than 50% in coordination of care (as documented) at patient's floor/unit and/or counseling patient: Coding Level of Care Code 05568 IN/OBS CONSULT LVL 4,60M Diagnoses Ureteral stone with hydronephrosis N13.2
[2023-03-02] MEDS ORDERED: ceFAZolin 2000MG 2,000 MG/15 ML SYR IV ONE (14:59)
[2023-03-02] MEDS ORDERED: ONDANSETRON INJ 2 MG/ML 2 ML VIAL IV PRN (15:25)
[2023-03-02] MEDS ORDERED: ATROPINE SULFATE 0.1 MG/ML 10ML SYR IV PRN (15:25)
[2023-03-02] MEDS ORDERED: ePHEDrine sulfate 50 MG/ML AMP IV PRN (15:25)
[2023-03-02] MEDS ORDERED: fentaNYL citrate PF 100 MCG/2 ML VIAL IV PRN (15:25)
--- NOTE | 2023-03-02 15:25 | Anesthesiology Consultation ---
Date of Service March 02, 2023 Assessment & Plan (1) Encounter for pre-operative examination: Chart Review Chart Review: Acceptable Risk for Surgery and Patient NOT seen in Pre Admission Testing urgent procedure Consults Requested none History Surgery Operation Date: 03/02/23 12:00 Proposed Procedures p Cystoscopy, Right Retrograde Pyelogram, Right Stent Placement - Win Jiang, DO Height/Weight Height: 5 ft 4 in Weight: 138.3 kg Allergies Allergy/AdvReac Type Severity Reaction Status Date / Time lisinopril Allergy Severe Anaphylaxis Verified 07/11/22 20:55 atorvastatin Allergy Intermediate Hives - Verified 07/11/22 20:55 itchy Medications Home Medications Medication Instructions Recorded Confirmed Last Taken cholecalciferol (vitamin D3) 25 25 mcg PO QAM 07/17/20 03/02/23 03/01/23 mcg (1,000 unit) capsule cyanocobalamin (vitamin B-12) 1,000 mcg PO QAM 07/17/20 03/02/23 03/01/23 1,000 mcg tablet omeprazole magnesium 20 mg 20 mg PO QAM 07/17/20 03/02/23 03/01/23 tablet,delayed release (Prilosec OTC) apixaban 5 mg tablet (Eliquis) 5 mg PO BID 30 days #60 tabs 07/22/20 03/02/23 03/01/23 amiodarone 200 mg tablet 200 mg PO QAM #30 tabs 09/01/20 03/02/23 03/01/23 metoprolol succinate 50 mg 50 mg PO QAM #30 tabs 09/01/20 03/02/23 03/01/23 tablet,extended release 24 hr insulin glargine-yfgn 100 unit/mL 50 unit (0.5 mL) subcut HS #15 mL 12/01/21 03/02/23 03/01/23 (3 mL) subcutaneous pen (Semglee (insulin glargine-yfgn) Pen) amlodipine 2.5 mg tablet 2.5 mg PO HS 07/11/22 03/02/23 03/01/23 furosemide 40 mg tablet 40 mg PO QAM 07/11/22 03/02/23 03/01/23 metformin 500 mg tablet 500 mg PO BIDM 07/11/22 03/02/23 03/01/23 oxycodone 5 mg tablet 5 mg PO Q6H PRN pain #15 tabs 07/11/22 03/02/23 03/01/23 losartan 50 mg tablet 50 mg PO DAILY 03/02/23 03/02/23 03/01/23 semaglutide 1 mg/dose (4 mg/3 mL) 0.5 mg subcut WK 03/02/23 03/02/23 03/01/23 subcutaneous pen injector (Ozempic) Active Medications Generic Name Dose Route Start Last Admin Trade Name Freq PRN Reason Stop Dose Admin Losartan Potassium 50 mg 03/02/23 13:00 03/02/23 13:20 Losartan Potassium 50 Mg Tab PO 04/01/23 12:59 50 mg QAM JUAN Administration Oxycodone HCl 5 mg 03/02/23 12:54 03/02/23 13:12 Oxycodone Hcl Ir 5 Mg Tab (Immediate Release) PO 03/16/23 12:53 5 mg Q8H PRN Administration Pain Phenazopyridine HCl 200 mg 03/02/23 14:00 03/02/23 13:21 Phenazopyridine Hcl 200 Mg Tab PO 03/06/23 13:59 200 mg TID JUAN Administration Past Medical History Medical History Atrial flutter Asthma in remission CKD (chronic kidney disease) stage 3, GFR 30-59 ml/min RCA occlusion Chronic systolic heart failure Severe left ventricular systolic dysfunction LBBB (left bundle branch block) Vitamin D deficiency Morbid obesity Spinal stenosis Kidney stones GERD (gastroesophageal reflux disease) Diabetes mellitus, type 2 IDDM Hyperlipidemia Hypertension Past Family History Family History Mother Pancreatic cancer Diabetes Bilateral kidney stones Sister Bilateral kidney stones Hypertension Father Heart disease Brother Bilateral kidney stones Other No family history of adverse response to anesthesia Past Surgical History Surgical History History of nephrolithotomy with removal of calculi History of cholecystectomy History of tonsillectomy History of section x2 Hx of cystoscopy with stone extraction Status post cystoscopy with ureteral stent placement most recent cystoscopy 11/07/19 [place] Social History Smoking Status: Never smoker Do You Dip or Chew Tobacco: No Hx Alcohol Use: No Hx Substance Use: No substance use type: does not use Physical Exam Vital Signs Last Vital Signs Temp 97.5 F L 03/02/23 07:40 Pulse 67 03/02/23 14:17 Resp 20 03/02/23 14:17 BP 171/90 H 03/02/23 14:17 Pulse Ox 98 03/02/23 14:17 O2 Del Method Room Air 03/02/23 12:03 Testing Laboratory Results 03/02/23 08:00 03/02/23 08:00 PT 11.4 Seconds (9.0-12.0) 03/02/23 08:00 INR 1.0 (0.9-1.1) 03/02/23 08:00 APTT 26.9 Seconds (21.0-31.0) 03/02/23 08:00 Urine Color Red 03/02/23 08:00 Urine Appearance Cloudy (Clear) A 03/02/23 08:00 Urine pH 7.0 (4.5-7.5) 03/02/23 08:00 Ur Specific Withams 1.025 (1.000-1.030) 03/02/23 08:00 Urine Protein 3+ (Negative) H 03/02/23 08:00 Urine Glucose (UA) 2+ (Negative) H 03/02/23 08:00 Urine Ketones 2+ (Negative) H 03/02/23 08:00 Urine Nitrite Negative (Negative) 03/02/23 08:00 Ur Leukocyte Esterase Negative (Negative) 03/02/23 08:00 Urine WBC (Auto) 0 /hpf (0-5) 03/02/23 08:00 Urine RBC (Auto) >30 /hpf (0-4) H 03/02/23 08:00 U Hyaline Cast (Auto) 0 /lpf (0-5) 03/02/23 08:00 U Epithel Cells (Auto) 0-5 /lpf (0-5) 03/02/23 08:00 Urine Bacteria (Auto) Negative (Negative) 03/02/23 08:00 Urine RBC >30 /hpf (0-4) H 03/02/23 08:00 Urine WBC 0-5 /hpf (0-5) 03/02/23 08:00 Ur Epithelial Cells 0-5 /lpf (0-5) 03/02/23 08:00 03/02/23 03/02/23 13:22 10:10 POC Glucose 290 H 292 H Electrocardiogram Date: 03/02/23 Findings: + NSR @ and + LBBB Echocardiogram Date: 07/18/20 EF: 15-20
[2023-03-02] MEDS ORDERED: fentaNYL citrate PF 100 MCG/2 ML VIAL ONE (16:04)
[2023-03-02] MEDS ORDERED: PROPOFOL IV EMULSION 10 MG/ML 20 ML VIAL IV ONE (16:04)
[2023-03-02] MEDS ORDERED: MIDAZOLAM HCL 1 MG/ML 2ML VIAL ONE (16:04)
[2023-03-02] MEDS ORDERED: LIDOCAINE 2% 2 ML VIAL/AMP(20MG/ML) INFIL ONE (16:04)
[2023-03-02] MEDS ORDERED: ONDANSETRON INJ 2 MG/ML 2 ML VIAL ONE (16:39)
--- NOTE | 2023-03-02 16:45 | Operative Report ---
[facility] Post Operative Report Pre & Post Diagnosis Obstructing Right Stone Same Operation Date: 03/02/23 12:00 <No data on this case meets the specified criteria> I identified the patient and participated in the time-out.: Yes Procedure Cystoscopy with Right Retrograde pyelogram, right aspiration of urine, Right stent Operation Date: 03/02/23 12:00 <No data on this case meets the specified criteria> Surgeon Win Jiang, II, DO [employer] Chief None Estimated Blood Loss 1 Findings Consistent with Post-Op Diagnosis Stent placed in good position. Large debris and purulence draining from right kidney after stent placement Dark cloudy urine aspirated. Specimens Urine Right Kidney Drains 6 Fr x 24 cm Anesthesia Type MAC Complications none Disposition Disposition: Recovery Room Indications Patient with obstruction. Risks and benefits discussed at length. Description of Procedure Patient was consented and brought back to the operating room. Patient was placed under anesthesia in the supine position and moved to the dorsal lithotomy position. Patient was prepped and draped in the regular sterile fashion. A time out was completed. A 30degree Cystoscope was placed into the bladder and the entire bladder was examined. The UO's were identified. The UO was cannulized with a catheter and advanced to the renal pelvis where a large amount of debris was noted to be draining. Urine was aspirated and sent for analysis. At this point, a retrograde pyelogram was completed. A wire was then placed. With the wire in place, a 6 Fr Double J stent was placed. It was confirmed with fluoroscopy. With the stent in place, the bladder was emptied. Large debris and stone fragments were noted draining with the stent placement. Purulent material was observed. The bladder was irrigated multiple times to clear the debris. The scope was removed. The patient was cleaned, aroused from anesthesia, and transferred to the pacu in stable condition having tolerated the procedure well with no complications. I was present and participated in all aspects of the procedure. The patient will be monitored in the PACU until transferred. Likely 1-2 weeks with antibiotics and will plan on stone treatment after cleared of infection I attest to the content of the Intraoperative Record and any orders documented therein. Any exceptions are noted below.
--- NOTE | 2023-03-02 16:49 | Electrocardiogram Report ---
Test Reason : Blood Pressure : / mmHG Vent. Rate : 081 BPM Atrial Rate : 081 BPM P-R Int : 192 ms QRS Dur : 164 ms QT Int : 472 ms P-R-T Axes : 046 -44 115 degrees QTc Int : 548 ms Normal sinus rhythm Left atrial enlargement Left axis deviation Left bundle branch block Abnormal ECG When compared with ECG of 28-NOV-2021 19:03, No significant change was found Confirmed by Manohar Thorpe ([id number]) on 03/02/2023 4:49:03 PM Referred By: REFERRED SELF Confirmed By:Manohar Thorpe
--- NOTE | 2023-03-02 16:53 | Fluoroscopy Report ---
FL retrograde includes kub CLINICAL HISTORY: CYSTO ADD ONright-sided cystourethrogram COMPARISON STUDY: CT of same day FLUOROSCOPY TIME: 13.3 seconds FLUOROSCOPY IMAGES: 2 EXPOSURE DOSE: 7.95 mGy FINDINGS: There is persistent right-sided hydronephrosis. Status post placement of a right-sided uret eral stent which appears to be in satisfactory positioning. IMPRESSION: Fluoroscopic assistance as above. ACT 112: Negative or not required by law. Electronically signed by: Antoni Devine M.D. 03/02/2023 4:51 PM
[2023-03-02] MEDS ORDERED: DIATRIZOATE MEGLUMINE 30% 100ML VIAL INSTIL ONE (16:56)
--- NOTE | 2023-03-02 17:07 | Anesthesiology Progress Note ---
Date of Service March 02, 2023 Anesthesia Post Procedure Vital Signs Vital Signs: Temp Pulse Pulse Pulse Resp BP BP 03/02/23 15:41 98.6 F 85 85 20 169/92 H 03/02/23 15:39 03/02/23 15:35 85 20 189/109 H 03/02/23 14:17 67 20 171/90 H 03/02/23 12:03 87 20 190/100 H 03/02/23 10:44 83 20 210/116 H 03/02/23 09:43 78 20 208/105 H 03/02/23 07:54 03/02/23 07:40 97.5 F L 77 20 196/93 H Pulse Ox O2 Del Method O2 Flow Rate 03/02/23 15:41 96 Room Air 03/02/23 15:39 Room Air 03/02/23 15:35 98 Nasal Cannula 3 03/02/23 14:17 98 03/02/23 12:03 94 Room Air 03/02/23 10:44 95 Room Air 03/02/23 09:43 94 Room Air 03/02/23 07:54 93 Room Air 03/02/23 07:40 96 Room Air Transfer of Care Handoff Completed per policy Notes Mental Status: alert / awake / arousable and participated in evaluation Patient Amnestic to Procedure: Yes Nausea / Vomiting: adequately controlled Pain: adequately controlled Airway Patency, RR, SpO2: stable & adequate BP & HR: stable & adequate Hydration State: stable & adequate Anesthetic Complications: no major complications apparent and Pt Satisfied with anesthetic care
[2023-03-02] MEDS: INSULIN ASPART PER UNIT CHARGE SC SCH ×2 (19:16→21:51)
[2023-03-02] MEDS: LANTUS PER UNIT CHARGE SQ SCH (21:51)
[2023-03-02] MEDS: amLODIPine BESYLATE 5 MG TAB PO SCH (21:52)
[2023-03-02] MEDS: ACETAMINOPHEN 325 MG TAB PO PRN (22:32)
--- NOTE | 2023-03-03 07:54 | Urology Progress Note ---
Date of Service March 03, 2023 Assessment & Plan (1) Ureteral stone with hydronephrosis: Plan 57yo/F admitted with hypertensive urgency, intractable right flank pain, and hematuria. CT abdomen pelvis notable for an obstructing 4mm distal right ureteral stone and additional bilateral nephrolithiasis. POD #1 s/p Cystoscopy with Right Retrograde pyelogram, right aspiration of urine, Right stent with Dr. Jiang - Overall feeling much better, tolerating the ureteral stent with minimal bother - Afebrile and hemodynamically stable. - Labs reviewed- WBC 10.04, Hemoglobin 13.6, Creatinine 1.51. Continue to trend. - Urinalysis on admission not indicative of infection. Urine culture aspirate from right kidney is pending. Follow culture. - Continue supportive care and pain management as needed. - Will arrange outpatient follow-up with our service to discuss definitive stone management. - Okay to resume anticoagulation from standpoint. - Urology will sign-off. Please call with any further questions/concerns. Admission and Anticipated Discharge Date Admission Date: March 02, 2023 Subjective Patient examined at bedside this AM. Awake, resting in bed on arrival. No acute distress. Overall feeling much better. Tolerating the ureteral stent with minimal bother. Denies fevers, chills, nausea, vomiting. Denies any significant pain or discomfort. Voiding without issue. Some mild hematuria and dysuria as expected. Review of Systems Constitutional: as per Subjective / HPI Gastrointestinal: as per Subjective / HPI Genitourinary: as per Subjective / HPI Physical Exam Constitutional: well developed and well nourished; no acute distress Respiratory: normal respiratory effort; no respiratory distress and no labored breathing Skin: No visible rashes or lesions to exposed skin areas Neurologic: moves all extremities and awake Psychiatric: A+Ox3, euthymic affect Results & Data Vital Signs (Past 12 Hours) Vital Signs Temp Pulse Pulse Resp BP Pulse Ox O2 Del Method 03/03/23 07:34 36.7 C 80 18 138/68 96 Room Air 03/03/23 07:03 76 03/03/23 03:58 36.9 C 80 16 162/80 H 95 Room Air 03/03/23 00:00 79 03/02/23 23:23 36.8 C 82 16 147/76 H 92 Room Air 03/02/23 20:17 37.2 C 86 18 157/76 H 97 Nasal Cannula O2 Flow Rate 03/03/23 07:34 03/03/23 07:03 03/03/23 03:58 03/03/23 00:00 03/02/23 23:23 03/02/23 20:17 2 PG Care Time/CCT Total # of Minutes Spent Total Time Spent with Patient: Total time spent is greater than 50% in coordination of care (as documented) at patient's floor/unit and/or counseling patient: Coding Level of Care Code 47341 SUB INP/OBS CARE 2/35MIN Diagnoses Ureteral stone with hydronephrosis N13.2
[2023-03-03 08:48] LABS: Estimated Average Glucose 209 mg/dl; Hemoglobin A1C 8.9 % (4.5-5.6)
[2023-03-03] MEDS: LANTUS PER UNIT CHARGE SQ SCH ×2 (08:50→20:37)
[2023-03-03] MEDS: INSULIN ASPART PER UNIT CHARGE SC SCH ×4 (08:50→20:13)
[2023-03-03] MEDS: METOPROLOL SUCC 50MG EXT REL TAB PO SCH (08:51)
[2023-03-03] MEDS: AMIODARONE 200 MG TAB PO SCH (08:51)
[2023-03-03] MEDS: PHENAZOPYRIDINE HCL 200 MG TAB PO SCH ×3 (08:52→20:39)
[2023-03-03] MEDS: LOSARTAN POTASSIUM 50 MG TAB PO SCH (10:48)
[2023-03-03] MEDS: ACETAMINOPHEN 325 MG TAB PO PRN (10:50)
[2023-03-03 11:01] LABS: BUN Creatinine Ratio 17.9 (10-20); Blood Urea Nitrogen 27 mg/dl (6-23); Calcium 8.8 mg/dl (8.6-10.3); Carbon Dioxide 30 mmol/L (21-32); Chloride 101 mmol/L (98-107); Creatinine Clr Calc Pharmacy 56.3 ml/min; Glucose 170 mg/dl (70-99(Fasting))
[2023-03-03 11:16] LABS: Basophils # (auto) 0.07 K/uL (0.00-0.20); Basophils % (auto) 0.7 %; Eosinophils # (auto) 0.04 K/uL (0.00-0.50); Eosinophils % (auto) 0.4 %; Hematocrit (blood only) 41.2 % (37.0-47.0); Hemoglobin 13.6 g/dl (12.0-16.0); Immature Granulocytes # (auto) 0.03 K/uL (0.01-0.20); Immature Granulocytes % (auto) 0.3 %; Lymphocytes # (auto) 1.98 K/uL (1.20-3.40); Lymphocytes % (auto) 19.7 %; Mean Corpuscular Hemoglobin 29.1 pg (25.0-34.0); Mean Corpuscular Volume 88.2 fL (80.0-100.0); Mean Platelet Volume 12.4 fL (9.4-12.4); Neutrophils # (auto) 7.22 K/uL (1.40-6.50); Neutrophils % (auto) 71.9 %; Platelet Count 235 K/uL (130-400); RDW Coefficient of Variation 12.7 % (11.5-14.5); RDW Standard Deviation 40.8 fL (36.4-46.3); Red Blood Count 4.67 M/uL (4.20-5.40); White Blood Count 10.04 K/ul (4.8-10.8)
[2023-03-03 12:03] LABS: Potassium 3.7 mmol/L (3.5-5.1)
--- NOTE | 2023-03-03 20:13 | Hospitalist Progress Note ---
Date of Service March 03, 2023 Assessment & Plan (1) Ureteral stone with hydronephrosis: Plan: This is a 57 y/o female with a PMH of recurrent nephrolithiasis, atrial flutter, dilated cardiomyopathy with severe LV dysfunction (EF ~20%), insulin-requiring DM, HTN, GERD, and dyslipidemia who presents to the ED today with right flank pain and hematuria. Work-up in the ED reveals an obstructing 4 mm stone in the distal ureter with resultant right hydroureter and hydronephrosis. Does not appear to have a resulting CEDRIC. Has been afebrile. History of multiple prior episodes of nephrolithiasis in the past requiring intervention. Also noted to have elevated BP consistent with hypertensive urgency, likely multifactorial due to missed medications and the pain. Glucose over 300 initially, last A1c in Dec was 10.4 so diabetes has been uncontrolled though pt working on this with her PCP. - Admit to med telemetry due to elevated BP and cardiac history - Consult urology - will keep pt NPO until seen in case intervention is needed today, holding Eliquis. - Give IV labetalol 10 mg x 1 dose, losartan 50 mg po x 1 in the ED and recheck BP, resume other BP meds tomorrow. Holding furosemide for now to avoid dehydration. - Will give 5 units insulin subQ for hyperglycemia, then continue with basal/sliding scale coverage. Could consider Jardiance at discharge in view of her history of heart failure with decreased EF (in 2020, 45%) and diabetes. - Continue gentle IVF for another liter then reassess due to history of HF - Labs in the AM - CBC, BMP, A1c - Check portable chest x-ray due to hypoxia in the ED, likely secondary to narcotics that pt received. Wean O2 as able - EKG to evaluate QTc before ordering anti-emetics (2) Uncontrolled diabetes mellitus with hyperglycemia: (3) Hypertensive urgency: (4) Hypokalemia: Plan: Oral repletion ordered. (5) Atrial flutter: (6) Chronic systolic heart failure: (7) Morbid obesity: Plan 57 y/o female with a PMH of recurrent nephrolithiasis, atrial flutter, dilated cardiomyopathy with severe LV dysfunction (EF ~20%), insulin-requiring DM, HTN, GERD, and dyslipidemia admitted with right flank pain and hematuria. Obstructive uretal stone with hydronephrosis CT abd pelvis with noted obstructed uretal stone with hydronephrosis and hydroureter Urology consulted -s/p R stent placement on 03/02 -urine aspirate Cx pending -resume home anticoagulation- Eliquis resumed Acute on chronic kidney disease Cr elevated today, was wnl on admission Noted elevation in the past Given CHF Hx will defer on fluids at this time Holding home lasix (restart in AM for CHF below), currently on home ARB in setting of hypertensive urgency previously Continue to monitor renal function HTN Continue amlodipine, losartan and metoprolol Atrial flutter On metoprolol, amiodarone and Eliquis Continue DMII Holding home medications Basal/bolus CHF Last echo with EF ~25% Follows with cardiology restart home Lasix in AM Diet: DMII DVT prophylaxis: Eliquis Dispo: Home once Cx results are back Admission and Anticipated Discharge Date Admission Date: March 02, 2023 Subjective Pt seen in the AM. Stated that she was having slight discomfort in the left lower quadrant. States tylenol helped otherwise tolerating food and drink, eliminating without issues. Review of Systems Review of Systems: All systems reviewed & are unremarkable except as noted in Subjective Physical Exam Physical Exam: General: Alert, oriented. No acute distress Skin: No noted rashes or bruises Psych: Appropriate mood and affect Neuro: No gross deficits HEENT: NC/AT Chest: Nontender to palpation. CV: RRR, Normal s1, s2. No murmurs appreciated Resp: Breath sounds clear bilaterally, no increased effort of breathing. Abdomen: BS+. Soft, tender in left lower quadrant, nondistended. No guarding. No organomegaly appreciated. Extremities: some edema in lower extremities bilaterally. Results & Data Results & Data Vital Signs (Past 12 Hours) Vital Signs Temp Pulse Pulse Resp BP Pulse Ox O2 Del Method 03/03/23 11:57 36.8 C 88 12 175/86 H 90 Room Air 03/03/23 07:34 36.7 C 80 18 138/68 96 Room Air 03/03/23 07:03 76 03/03/23 03:58 36.9 C 80 16 162/80 H 95 Room Air (5) Atrial flutter Atrial flutter type: atypical Qualified Code(s): I48.4 - Atypical atrial flutter
[2023-03-03] MEDS: amLODIPine BESYLATE 5 MG TAB PO SCH (20:38)
[2023-03-03] MEDS: APIXABAN 5 MG TABLET PO SCH (22:41)
--- OUTSIDE RECORDS SUMMARY | 2023-03-04 02:49 | External Medical Summary | Summary of Care ---
Author Name Unknown Organization [facility] Address [address] [facility] [place] [address] Phone [phone] Care Team Providers Care Film Historian Name Role Phone Jessica Taylor MD Primary Care Provider [phone] Reason for Visit * Reason Comments eRx-Medication Refill Encounter Details Date Type Department Care Team (Late st Contact Info) Description 02/14/2023 Refill [facility] [address] [place] [address] Jessica Taylor MD [address] [place] [address] Chronic systolic congestive heart failure (HCC); LBBB (left bundle branch block); Non-ischemic cardiomyopathy (HCC) Allergies Active Allergy Reactions Criticality Noted Date Comments Atorvastatin Hives High 11/28/2021 Lisinopril Edema face/lips/tongue High 11/21/2019 documented as of this encounter (statuses as of 02/17/2023) Medications Medication Sig Dispensed Refills Start Date End Date Status Blood Glucose Monitoring Suppl (ONETOUCH ULTRA SYSTEM) W/DEVICE KITIndications:DM type 2, goal A1c below 7 Use as directed 4 times a day as needed for Hyperglycemia (high sugar) or Hypoglycemia (low sugar). Dx E11.9 1 Kit 0 6 Active ONETOUCH ULTRA BLUE STRP 0 6 Active Cyanocobalamin (B-12) 1000 MCG Capsule Take 1 Capsule by mouth in the morning. 0 Active Cholecalciferol (VITAMIN D) 1000 units Tablet Take 1 Tablet by mouth in the morning. 0 Active Glucose Blood (ONETOUCH ULTRA BLUE) STRPIndications:Ty pe 2 diabetes mellitus with hemoglobin A1c goal of less than 7.0% (HCC) USE ONE STRIP TO CHECK GLUCOSE 4 TIMES DAILY DIRECTED NEEDED FOR HYPERGLYCEMIA (HIGH SUGAR) OR HYPOGLYCEMIA (LOW SUGAR) 100 Strip 5 0 Active ONETOUCH DELICA LANCETS 33G [facility] [place] USE ONE LANCET TO CHECK GLUCOSE 4 TIMES DAILY 200 Each 5 0 Active Torsemide 20 MG Oral Tablet (Demadex)Indicatio ns:Acute systolic (congestive) heart failure (HCC),Chronic systolic congestive heart failure (HCC),Typical atrial flutter (HCC) Take 2 tablets in the morning and 1 tablet in the afternoon.. 90 Tablet 2 Active Omeprazole 20 MG Oral Capsule Delayed Release (PriLOSEC) Take by mouth 1 Capsule in the morning. 1 hour before the first meal of the day. 30 Capsule 5 2 Active Probiotic Daily Oral Capsule Take by mouth 1 Capsule in the morning. 3 billion cell capsule. 0 2 Active Amiodarone HCl 200 MG Oral Tablet (Cordarone)Indicat ions:Typical atrial flutter (HCC),Chronic systolic congestive heart failure (HCC),LBBB (left bundle branch block) TAKE 1 TABLET BY MOUTH ONCE DAILY IN THE MORNING 90 Tablet 1 3 Active Metoprolol Succinate ER 50 MG Oral Tablet Extended Release 24 Hour (toPROL XL)Indications:Acu te systolic (congestive) heart failure (HCC),Chronic systolic congestive heart failure (HCC),Typical atrial flutter (HCC) TAKE ONE TABLET BY MOUTH EVERY MORNING 30 Tablet 11 3 Active amLODIPine Besylate 2.5 MG Oral Tablet (Norvasc) TAKE ONE TABLET BY MOUTH AT BEDTIME 90 Tablet 0 3 Active Semglee (yfgn) 100 UNIT/ML Subcutaneous Solution Pen-injector (Insulin Glargine-yfgn)Zenaida cations:Type 2 diabetes mellitus with hemoglobin A1c goal of less than 7.0% (HCC) INJECT 50 UNITS UNDER THE SKIN AT BEDTIME. MAKE APPOINTMENT FOR MORE REFILLS 15 mL 0 3 Active Eliquis 5 MG Oral Tablet (Apixaban)Indicati ons:Acute systolic (congestive) heart failure (HCC),Chronic systolic congestive heart failure (HCC),Typical atrial flutter (HCC) TAKE 1 TABLET BY MOUTH IN THE MORNING AND 1 TABLET BEFORE BEDTIME 180 Tablet 3 3 Active Ozempic (0.25 or 0.5 MG/DOSE) 2 MG/1.5ML Solution Pen-injector (Semaglutide(0.25 or 0.5MG/DOS)) Inject 0.25 mg under the skin once a week. 1.5 mL 1 3 Active Losartan Potassium 50 MG Oral Tablet (Cozaar) Take 1 Tablet by mouth in the morning. 90 Tablet 3 3 Active Furosemide 40 MG Oral Tablet (Lasix)Indications :Chronic systolic congestive heart failure (HCC),LBBB (left bundle branch block),Non-ischemi c cardiomyopathy (HCC) TAKE ONE TABLET BY MOUTH EVERY MORNING 30 Tablet 0 3 Active metFORMIN HCl 500 MG Oral Tablet (Glucophage)Indica tions:Chronic systolic congestive heart failure (HCC),LBBB (left bundle branch block),Non-ischemi c cardiomyopathy (HCC) TAKE ONE TABLET BY MOUTH TWICE A DAY WITH MORNING AND EVENING MEALS 60 Tablet 5 3 Active metFORMIN HCl 500 MG Oral Tablet (Glucophage)Indica tions:Chronic systolic congestive heart failure (HCC),LBBB (left bundle branch block),Non-ischemi c cardiomyopathy (HCC) TAKE ONE TABLET BY MOUTH TWICE A DAY WITH MORNING AND EVENNG MEALS 60 Tablet 0 3 023 Discontinued documented as of this encounter (statuses as of 02/17/2023) Active Problems Problem Noted Date Diagnosed Date Chronic kidney disease, stage 3a 03/03/2022 Overview: Per CKD protocol Spinal stenosis of lumbar re gion with neurogenic claudication 12/31/2021 Uncontrolled type 2 diabetes mellitus with hyper glycemia 12/31/2021 History of ischemic heart disease 12/06/2021 RCA occlusion 12/06/2021 Chronic systolic congestive heart failure 2021 Non-ischemic cardiomyopathy 05/13/2021 Typical atrial flutter 01/11/2021 LBBB (left bundle branch block) 01/11/2021 Body mass index (BMI) of 50.0 to 59.9 in adult 0 05/31/2019 Overview: Per Obesity protocol - - Leg weakness, bilateral 07/06/2018 Asthma in remission 06/28/2012 Type 2 diabetes mellitus wit h hemoglobin A1c goal of less than 7.0% 10/16/2011 Overview: ICD-10 update of inactive term DYSLIPIDEMIA, GOAL TO BE DETERMINED 03/29/2009 Overview: Per Lipid Taxonomy. ADVANCE DIRECTIVE INFORMATION 04/24/2006 Overview: No, Advance Directive brochure given to patient at prior appointment. documented as of this encounter (statuses as of 02/17/2023) Resolved Problems Problem Noted Date Diagnosed Date Resolved Date Stage 3b chronic kidney disease 12/31/2021 01/30/2022 Chronic kidney disease, stage 3a 12/30/2021 01/30/2022 Overview: Per CKD protocol Body mass index (BMI) of 45. 0 to 49.9 in adult 08/30/2018 06/01/2019 Overview: Per Obesity protocol #1 - - Lower extremity pain, posterior 07/01/2018 12/31/2021 Body mass index (BMI) of 50. 0 to 59.9 in adult 05/31/2018 09/01/2018 Overview: Per Obesity protocol #1 - Body mass index (BMI) of 45. 0 to 49.9 in adult 03/03/2017 06/03/2018 Overview: Per Obesity protocol #1 - Per Obesity protocol #1 Body mass index (BMI) of 50. 0 to 59.9 in adult 01/19/2017 03/06/2017 Overview: Per Obesity protocol #1 DM type 2 causing renal disease 09/15/2013 08/15/2016 HTN, goal below 140/80 12/08/201105/21 Overview: Per HTN Protocol #27. Right knee pain 11/06/2011 05/21/2015 HTN, goal below 130/80 10/16/201112/10 Overview: Per HTN Protocol #27. Obesity, morbid (more than 1 00 lbs over ideal weight or BMI > 40) 09/12/2011 01/22/2017 Overview: Per Obesity protocol #1 Type 2 diabetes mellitus wit h hemoglobin A1c goal of 7.0%-8.0% 04/15/2011 10/16/2011 Overview: ICD-10 update of inactive term Elevated glucose 04/10/2011 04/15/2011 Edema 02/12/2010 05/21/2015 Asthma with severity to be determined 10/11/2009 06/28/2012 Overview: Per Asthma Taxonomy ICD-10 update of inactive term HTN, goal below 140/90 09/28/200910/15 Stress reaction, emotional 09/28/2009 0 05/21/2015 Dyslipidemia, goal LDL below 160 10/07/2006 03/29/2009 Overview: Per Lipid Taxonomy. Gestational diabetes mellitus, antepartum 10/07/2006 06/28/2012 Elevated blood pressure, situational 10/07/2006 09/28/2009 Asthma, allergic 08/08/2002 10/11/2009 documented as of this encounter (statuses as of 02/17/2023) Immunizations Name Administration Dates Next Due COVID-19 mRNA, LNP-s, No Pre serve, 2-Dose Series (Pfizer) 09/24/2020,09/03/2020 Pneumococcal Polysaccharide PPV23 (Pneumovax) TDAP (age 11 and older)(Adacel) 09/28/2009 documented as of this encounter Social History Tobacco Use Types Packs/Day Years Used Date Smoking Tobacco: Never Passive Smoke Exposure: Past Smokeless Tobacco: Never Alcohol Use Standard Drinks/Week Comments No 0 (1 standard drink = 0.6 oz pur e alcohol) AUDIT-C Answer Date Recorded Frequency of Alcohol Consumption Never 07/29/2018 Average Number of Drinks Not on file 019 Frequency of Binge Drinking Not on file 07/19 PHQ-2 Answer Date Recorded PHQ-2 Score 0 12/30/2019 Hunger Vital Sign Answer Date Recorded Worried About Running Out of Food in the Last Ye ar Never true 05/09/2019 Ran Out of Food in the Last Year Never true 05/09/2019 Sex and Gender Information Value Date Recorded Sex Assigned at Female 05/09/2019 7:46 AM EST Gender Identity Female 05/09/2019 7:46 AM EST Sexual Orientation Straight 05/09/2019 7: 46 AM EST Job Start Date Occupation Industry Not on file Not on file Not on file documented as of this encounter Miscellaneous Notes * Telephone Encounter - Umm Mendez RP - 02/17/2023 11:00 AM EDTSigned Prescriptions: Disp Refills metFORMIN HCl 500 MG Oral Tablet (Glucopha*60 Tab*5 Sig: TAKE ONE TABLET BY MOUTH TWICE A DAY WITH MORNING AND EVENING MEALSAuthorizing Provider: Mateusz TAYLOR User: UMM MENDEZ * Telephone Encounter - Umm Mendez RPh - 02/17/2023 10:48 AM EDT LMOVM for patient to return call regarding refill request and possible MTDM referral. Follow Up: Return in about 2 weeks (around 01/30/2023) for Clinic Visit. Last labs were elevated. Patient was to have folllow up OV in 2 weeks, but canceled last appt and never rescheduled. Metformin dose was decreased from 1000mg BID to 500mg BID after 12/05/21 [facility] discharge with acute renal failure Patient was identified by having an A1c >8%. Please sign pended referral to [facility]TD for diabetes management if appropriate. Reached out to inform pt about MTDM management to determine interest. LMOVM to return call. Umm Mendez RPh 02/17/2023, 10:59 AM documented in this encounter Plan of Treatment Upcoming Encounters Date Type Department Care Team (Late st Contact Info) Description 03/25/2023 7:15 AM EST Cardiac Studies Cardiac Studies, [facility] [address] [place] [address] Health Maintenance Due Date Last Done Comments Hepatitis B (1 of 3 - 3-dose series) 1965 Hepatitis C Screening 07/17/1983 HPV/Co-Test 07/17/1995 Cologuard 2010 Colonoscopy 2010 Colorectal Cancer Screening 2010 Fecal Occult Blood Test 2010 Sigmoidoscopy 2010 Pneumococcal Vaccine: Pediatrics (0 to 5 Years) and At-Risk Patients (6 to 64 Years) (2 - PCV) 09/15/2014 09/15/2013 Zoster Vaccines (1 of 2) 07/17/2015 Cervical Cancer Screening 05/21/2018 Pap Smear 05/21/2018 05/21/2015, 09/18, 09/28/2009, Additional history exists Diabetic Eye Exam 05/24/2019 05/24/2018 DTaP,Tdap,and Td Vaccines (2 - Td or Tdap) 09/29/2019 09/28/2009, 1999, 04/20/1989 Depression Screening 12/29/2020 12/30/2019 Diabetic Foot Exam 09/05/2022 09/05/2021, 0 07/30/2020, 05/09/2019, Additional history exists B-12 11/28/2022 11/28/2021, 01/18, 05/09/2019, Additional history exists COVID-19 Vaccine (3 - 2022- season) 2022 09/24/2020, 09/03/2020 Influenza Vaccine (FLU shot) (#1) 2022 GFR 07/17/2023 01/16/2023, 11/18, 11/28/2021, Additional history exists HbA1c 07/17/2023 01/16/2023, 11/18, 02/04/2021, Additional history exists Albumin/Creatinine Ratio 01/17/2024 023, 11/28/2021, 10/16/2017, Additional history exists CKD HGB USE SMARTSET 81526 01/17/202401/16, 01/16/2023, 02/04/2021, Additional history exists CKD PHOS USE SMARTSET 27667 01/17/2024 01/16/2023 Mammogram 02/06/2024 02/05/2023, 05/22, 11/12/2017, Additional history exists GARDASIL-HPV IMMUNIZATION SERIES Aged Out No longer eligible based on patient's age to complete this topic MENINGOCOCCAL (MENACTRA/MENVEO) Aged Out No longer eligible based on patient's age to complete this topic documented as of this encounter Medical Devices Not on filedocumented as of this encounter Visit Diagnoses Diagnosis Chronic systolic congestive heart failure (HCC) Chronic systolic heart failure LBBB (left bundle branch block) Other left bundle branch block Non-ischemic cardiomyopathy (HCC) Other primary cardiomyopathies documented in this encounter Advance Directives Latest Code Status on File Code Status Date Activated Date Inactivated Comments Full Code 02/03/2017 2:42 PM 02/05/2017 5:26 PM Thi s order reflects the patients wishes and were consensually agreed upon. Care Teams Film Historian Relationship Specialty Start Date End Date Jessica Taylor MD [address] [place] [address] PCP - General Internal Medicine 12/04/21 documented as of this encounter
--- OUTSIDE RECORDS SUMMARY | 2023-03-04 02:49 | External Medical Summary | Summary of Care ---
Author Name Unknown Organization [facility] Address [address] [place] [address] Phone [phone] Care Team Providers Care Grocery Sacker Name Role Phone Jessica Taylor MD Primary Care Provider Reason for Visit * Reason Onset Date Comments Test Results Lab 02/16/2023 Encounter Details Date Type Department Care Team (Late st Contact Info) Description 02/16/2023 Telephone [facility] [address] [place] [address] Jessica Taylor MD [address] [place] [address] Test Results Lab Allergies Active Allergy Reactions Criticality Noted Date Comments Atorvastatin Hives High 11/28/2021 Lisinopril Edema face/lips/tongue High 11/21/2019 documented as of this encounter (statuses as of 02/23/2023) Medications Medication Sig Dispensed Refills Start Date End Date Status Blood Glucose Monitoring Suppl (ONETOUCH ULTRA SYSTEM) W/DEVICE KITIndications:DM type 2, goal A1c below 7 Use as directed 4 times a day as needed for Hyperglycemia (high sugar) or Hypoglycemia (low sugar). Dx E11.9 1 Kit 0 05/23/19 16 Active ONETOUCH ULTRA BLUE STRP 0 07/13/19 16 Active Cyanocobalamin (B-12) 1000 MCG Capsule Take [...] OR HYPOGLYCEMIA (LOW SUGAR) 100 Strip 5 04/25/19 20 Active ONETOUCH DELICA LANCETS 33G MISC USE ONE LANCET TO CHECK GLUCOSE 4 TIMES DAILY 200 Each 5 04/25/19 20 Active Torsemide 20 MG Oral Tablet (Demadex)Indicatio ns:Acute systolic (congestive) heart failure (HCC),Chronic systolic congestive heart failure (HCC),Typical atrial flutter (HCC) Take 2 tablets in the morning and 1 tablet in the afternoon.. 90 Tablet 11 07/03/19 22 Active Omeprazole 20 MG Oral Capsule Delayed Release (PriLOSEC) Take by mouth 1 Capsule in the morning. 1 hour before the first meal of the day. 30 Capsule 5 07/05/19 22 Active Probiotic Daily Oral Capsule Take by mouth 1 Capsule in the morning. 3 billion cell capsule. 0 12/02/19 22 Active Metoprolol Succinate ER 50 MG Oral Tablet Extended Release 24 Hour (toPROL XL)Indications:Acu te systolic (congestive) heart failure (HCC),Chronic systolic congestive heart failure (HCC),Typical atrial flutter (HCC) TAKE ONE TABLET BY MOUTH EVERY MORNING 30 Tablet 11 12/16/19 23 Active amLODIPine Besylate 2.5 MG Oral Tablet (Norvasc) TAKE ONE TABLET BY MOUTH AT BEDTIME 90 Tablet 0 12/23/19 23 Active Semglee (yfgn) 100 UNIT/ML Subcutaneous Solution Pen-injector (Insulin Glargine-yfgn)Zenaida cations:Type 2 diabetes mellitus with hemoglobin A1c goal of less than 7.0% (HCC) INJECT 50 UNITS UNDER THE SKIN AT BEDTIME. MAKE APPOINTMENT FOR MORE REFILLS 15 mL 0 12/26/19 23 Active Eliquis 5 MG Oral Tablet (Apixaban)Indicati ons:Acute systolic (congestive) heart failure (HCC),Chronic systolic congestive heart failure (HCC),Typical atrial flutter (HCC) TAKE 1 TABLET BY MOUTH IN THE MORNING AND 1 TABLET BEFORE BEDTIME 180 Tablet 3 01/13/20 23 Active Ozempic (0.25 or 0.5 MG/DOSE) 2 MG/1.5ML Solution Pen-injector (Semaglutide(0.25 or 0.5MG/DOS)) Inject 0.25 mg under the skin once a week. 1.5 mL 1 01/17/20 23 Active Losartan Potassium 50 MG Oral Tablet (Cozaar) Take 1 Tablet by mouth in the morning. 90 Tablet 3 01/17/20 23 Active Furosemide 40 MG Oral Tablet (Lasix)Indications :Chronic systolic congestive heart failure (HCC),LBBB (left bundle branch block),Non-ischemi c cardiomyopathy (HCC) TAKE ONE TABLET BY MOUTH EVERY MORNING 30 Tablet 0 02/03/20 23 Active Amiodarone HCl 200 MG Oral Tablet (Cordarone)Indicat ions:Typical atrial flutter (HCC),Chronic systolic congestive heart failure (HCC),LBBB (left bundle branch block) TAKE 1 TABLET BY MOUTH ONCE DAILY IN THE MORNING 90 Tablet 1 08/06/19 23 023 Discontinued(Re fill) metFORMIN HCl 500 MG Oral Tablet (Glucophage)Indica tions:Chronic systolic congestive heart failure (HCC),LBBB (left bundle branch block),Non-ischemi c cardiomyopathy (HCC) TAKE ONE TABLET BY MOUTH TWICE A DAY WITH MORNING AND EVENNG MEALS 60 Tablet 0 01/20/20 23 023 Discontinued documented as of this encounter (statuses as of 02/23/2023) Active Problems Problem Noted Date Diagnosed Date [...] as of this encounter (statuses as of 02/23/2023) Resolved Problems Problem Noted Date Diagnosed Date [...] as of this encounter (statuses as of 02/23/2023) Immunizations Name Administration Dates Next Due COVID-19 mRNA, LNP-s, No Pre serve, 2-Dose Series (Pfizer) 09/24/2020,09/03/2020 Diptheria/Tetanus (Adult) 04/20/1989 Pneumococcal Polysaccharide PPV23 (Pneumovax) TD - Tetanus/Diptheria (ADULT) 1999 TDAP (age 11 and older)(Adacel) 09/28/2009 documented [...] encounter Miscellaneous Notes * Telephone Encounter - Hortencia Morales MED ASSIST - 02/23/2023 2:20 PM EST Tried to call pt. No answer. Left message to call back. * Telephone Encounter - Laury Chapman LPN - 02/16/2023 12:48 PM EDT left message on machine for pt to call office Please see message below. * Telephone Encounter - Jessica Taylor MD - 02/16/2023 8:36 AM EDT MRI lumbar showed severe spinal canal stenosis at L4/5 and other multilevel problems Most likely she will need surgery But at first pt will need to control her DM , hba1c less than 7-7.5 And spinal surgeon will ask for weight loss too For this finding , would like to refer her to spinal surgery and neurosurgery both to get opinions documented in this encounter Plan of Treatment Upcoming Encounters Date Type Department Care Team (Late st Contact Info) Description 02/24/2023 7:20 AM EST [facility] [address] [facility] [place] [address] Jessica Taylor MD [address] [facility] [place] [phone] 03/25/2023 7:15 AM EST Cardiac Studies Cardiac Studies, [facility] [address] [place] [address] Health Maintenance Due Date Last Done Comments [...] Additional history exists Diabetic Eye Exam 05/24/2019 05/24/2018, 06/28/2012 DTaP,Tdap,and Td Vaccines (2 - Td or Tdap) 09/29/2019 09/28/2009, 1999, 04/20/1989 Depression Screening 12/29/2020 12/30/2019 Diabetic Foot Exam 09/05/2022 09/05/2021, 0 07/30/2020, 05/09/2019, Additional history exists B-12 11/28/2022 11/28/2021, 01/18, 05/09/2019, Additional history exists COVID-19 Vaccine (3 2022- season) 2022 09/24/2020, 09/03/2020 Influenza Vaccine (FLU shot) (#1) 2022 GFR 07/17/2023 01/16/2023, 11/18, 11/28/2021, Additional history exists HbA1c 07/17/2023 01/16/2023, 11/18, 02/04/2021, Additional history exists Albumin/Creatinine Ratio 01/17/2024 023, 11/28/2021, 10/16/2017, Additional history exists CKD HGB USE SMARTSET 92063 01/17/202401/16, 01/16/2023, 02/04/2021, Additional history exists CKD PHOS USE SMARTSET 48202 01/17/2024 01/16/2023 Mammogram 02/06/2024 02/05/2023, 05/22, 11/12/2017, Additional history exists GARDASIL-HPV IMMUNIZATION SERIES Aged Out No longer eligible based on patient's age to complete this topic MENINGOCOCCAL (MENACTRA/MENVEO) Aged Out No longer eligible based on patient's age to complete this topic documented as of this encounter Medical Devices Not on filedocumented as of this encounter Advance Directives Latest Code Status on File Code Status Date Activated Date Inactivated Comments Full Code 02/03/2017 2:42 PM 02/05/2017 5:26 PM Thi s order reflects the patients wishes and were consensually agreed upon. Care Teams Grocery Sacker Relationship Specialty Start Date End Date Jessica Taylor MD [address] [place] [address] PCP - General Internal Medicine 12/04/21 documented as of this encounter
--- OUTSIDE RECORDS SUMMARY | 2023-03-04 02:49 | External Medical Summary | Summary of Care ---
Author Name Unknown Organization [facility] Address [address] [facility] [place] [address] Phone [phone] Care Team Providers Care Anglesmith Helper Name Role Phone Jessica Taylor MD Primary Care Provider [phone] Reason for Visit * Reason Comments eRx-Medication Refill Encounter Details Date Type Department Care Team (Late st Contact Info) Description 01/10/2023 Refill Cardiology, [facility] [address] [place] [address] Erik Huertas, [address] [place] [address] Acute systolic (congestive) heart failure (HCC); Chronic systolic congestive heart failure (HCC); Typical atrial flutter (HCC) Allergies Active Allergy Reactions Criticality Noted Date Comments Atorvastatin Hives High 11/28/2021 Lisinopril Edema face/lips/tongue High 11/21/2019 documented as of this encounter (statuses as of 02/18/2023) Medications Medication Sig Dispensed Refills Start Date [...] 5 0 Active ONETOUCH DELICA LANCETS 33G [facility] USE ONE LANCET TO CHECK GLUCOSE 4 TIMES DAILY 200 Each 5 0 Active Torsemide 20 MG Oral Tablet (Demadex)Indicatio ns:Acute systolic (congestive) heart failure (HCC),Chronic systolic congestive heart failure (HCC),Typical atrial flutter (HCC) Take 2 tablets in the morning and 1 tablet in the afternoon.. 90 Tablet 11 2 Active Omeprazole 20 MG Oral Capsule [...] hemoglobin A1c goal of less than 7.0% ([facility]) INJECT 50 UNITS UNDER THE SKIN AT BEDTIME. MAKE APPOINTMENT FOR MORE REFILLS 15 mL 0 3 Active Eliquis 5 MG Oral Tablet (Apixaban)Indicati ons:Acute systolic (congestive) heart failure (HCC),Chronic systolic congestive heart failure (HCC),Typical atrial flutter (HCC) TAKE 1 TABLET BY MOUTH IN THE MORNING AND 1 TABLET BEFORE BEDTIME 180 Tablet 3 3 Active Losartan Potassium 25 MG Oral Tablet (Cozaar)Indication s:Acute systolic (congestive) heart failure (HCC),Chronic systolic congestive heart failure (HCC),Typical atrial flutter (HCC) Take by mouth 1 Tablet in the morning. 30 Tablet 11 2 023 Discontinued Ozempic (0.25 or 0.5 MG/DOSE) 2 MG/1.5ML Solution Pen-injector (Semaglutide(0.25 or 0.5MG/DOS))Indicat ions:Type 2 diabetes mellitus with hemoglobin A1c goal of less than 7.0% (HCC),Uncontrolled type 2 diabetes mellitus with hyperglycemia (HCC) Inject under the skin 0.25 mg once a week . 1.5 mL 1 2 023 Discontinued Apixaban 5 MG Oral Tablet (Eliquis)Indicatio ns:Acute systolic (congestive) heart failure (HCC),Chronic systolic congestive heart failure (HCC),Typical atrial flutter (HCC) Take 1 Tablet by mouth in the morning and 1 Tablet before bedtime. 180 Tablet 1 3 023 Discontinued Tamsulosin HCl 0.4 MG Oral Capsule (Flomax) Take 1 Capsule by mouth in the morning. 30 Capsule 3 3 023 Discontinued metFORMIN HCl 500 MG Oral Tablet (Glucophage)Indica tions:Chronic systolic congestive heart failure (HCC),LBBB (left bundle branch block),Non-ischemi c cardiomyopathy (HCC) TAKE ONE TABLET BY MOUTH TWICE A DAY WITH MORNING AND EVENING MEALS 60 Tablet 0 3 023 Discontinued Furosemide 40 MG Oral Tablet (Lasix)Indications :Chronic systolic congestive heart failure (HCC),LBBB (left bundle branch block),Non-ischemi c cardiomyopathy (HCC) TAKE ONE TABLET BY MOUTH EVERY MORNING 30 Tablet 0 3 023 Discontinued documented as of this encounter (statuses as of 02/18/2023) Active Problems Problem Noted Date Diagnosed Date [...] as of this encounter (statuses as of 02/18/2023) Resolved Problems Problem Noted Date Diagnosed Date [...] as of this encounter (statuses as of 02/18/2023) Immunizations Name Administration Dates Next Due COVID-19 mRNA, LNP-s, No Pre serve, 2-Dose Series (Pfizer) 09/24/2020,09/03/2020 Pneumococcal Polysaccharide PPV23 (Pneumovax) TDAP (age 11 and older)(Adacel) 09/28/2009 documented as of this encounter Social History Tobacco Use Types Packs/Day Years Used Date Smoking Tobacco: Never Smokeless Tobacco: Never Alcohol Use Standard Drinks/Week [...] encounter Miscellaneous Notes * Telephone Encounter - Tessie Caraballo OSA - 02/18/2023 2:24 PM EDT [employer] message sent. * Telephone Encounter - Urszula Razo PA-C - 01/12/2023 3:50 PM EDT Cancelled October [address] Huertas. Not rescheduled. Please call to arrange f/u * Telephone Encounter - Urszula Razo PA-C - 01/12/2023 3:50 PM EDT Signed Prescriptions: Disp Refills Eliquis 5 MG Oral Tablet (Apixaban) 180 Ta*3 Sig: TAKE 1 TABLET BY MOUTH IN THE MORNING AND 1 TABLET BEFORE BEDTIME Authorizing Provider: URSZULA RAZO * Telephone Encounter - Jo Schneider COT - 01/12/2023 1:35 PM EDTPending Prescriptions: Disp Refills Eliquis 5 MG Oral Tablet (Apixaban) 180 Ta*3 Sig: TAKE 1 TABLET BY MOUTH IN THE MORNING AND 1 TABLET BEFORE BEDTIME * Telephone Encounter - Jo Schneider COT - 01/12/2023 1:35 PM EDT Did you pend patient's preferred pharmacy and medication before forwarding?yes Pharmacy: [facility] [address] Pending Prescriptions: Disp Refills Eliquis 5 MG Oral Tablet (Apixaban) [Phar*180 Ta*3 Sig: TAKE 1 TABLET BY MOUTH IN THE MORNING AND 1 TABLET BEFORE BEDTIME Last Visit: 05/13/2021 (in office), Visit date not found (telemedicine) Next Visit: Visit date not found If no future appointments scheduled, and last appointment is greater than a year ago, please schedule patient for a follow-up appointment Last date the medication was ordered: 08-28-2022 Is this request for a controlled substance?No Urine Drug Screen:No results found for this or any previous visit. Patient Phone Numbers Labs: Lab Results Component Value Date/Time CREAT 1.5 (H) 12/04/2021 07:54 AM CREAT 0.6 05/09/2019 08:28 AM POTASSIUM 4.7 12/04/2021 07:54 AM POTASSIUM 4.4 05/09/2019 08:28 AM TSH 1.09 12/13/2020 08:35 AM TSH 1.30 09/28/2009 07:33 AM LDLCALC 119 05/09/2019 08:28 AM LDLDIRECT 134 (H) 11/28/2021 07:45 AM LDLDIRECT 155 (H) 06/28/2012 12:11 PM ALT 26 11/28/2021 07:45 AM ALT 32 05/09/2019 08:28 AM HGBA1C 12.7 (H) 11/28/2021 07:45 AM HGBA1C 9.6 (H) 05/09/2019 08:28 AM documented in this encounter Plan of Treatment Upcoming Encounters Date Type Department Care Team (Late st Contact Info) Description 03/25/2023 7:15 AM EST Cardiac Studies Cardiac Studies, [facility] [address] [facility] [place] [address] Health Maintenance Due Date Last Done Comments [...] 01/18, 05/09/2019, Additional history exists COVID-19 Vaccine ( season) 2022 09/24/2020, 09/03/2020 Influenza Vaccine (FLU shot) (#1) 2022 GFR 07/17/2023 01/16/2023, 11/18, 11/28/2021, Additional history exists HbA1c 07/17/2023 01/16/2023, 11/18, 02/04/2021, Additional history exists Albumin/Creatinine Ratio 01/17/2024 023, 11/28/2021, 10/16/2017, Additional history exists CKD HGB USE SMARTSET 04170 01/17/202401/16, 01/16/2023, 02/04/2021, Additional history exists CKD PHOS USE SMARTSET 49992 01/17/2024 01/16/2023 Mammogram 02/06/2024 02/05/2023, 05/22, 11/12/2017, Additional history exists GARDASIL-HPV IMMUNIZATION SERIES Aged Out No longer eligible based on patient's age to complete this topic MENINGOCOCCAL (MENACTRA/MENVEO) Aged Out No longer eligible based on patient's age to complete this topic documented as of this encounter Medical Devices Not on filedocumented as of this encounter Visit Diagnoses Diagnosis Acute systolic (congestive) heart failure (HCC) Chronic systolic congestive heart failure (HCC) Chronic systolic heart failure Typical atrial flutter (HCC) Atrial flutter documented in this encounter Advance Directives Latest Code Status on File Code Status Date Activated Date Inactivated Comments Full Code 02/03/2017 2:42 PM 02/05/2017 5:26 PM Thi s order reflects the patients wishes and were consensually agreed upon. Care Teams Anglesmith Helper Relationship Specialty Start Date End Date Jessica Taylor MD [address] [place] [address] PCP - General Internal Medicine 12/04/21 documented as of this encounter
--- OUTSIDE RECORDS SUMMARY | 2023-03-04 02:49 | External Medical Summary | Summary of Care ---
Author Name Unknown Organization [facility] Address [address] [place] [address] Phone [phone] Care Team Providers Care Tour Counselor Name Role Phone Jessica Taylor MD Primary Care Provider Reason for Visit * Reason Comments Follow Up Encounter Details Date Type Department Care Team (Latest Contact Info) Description 02/24/2023 7:20 AM EST Office Visit [facility] [address] [place] [address] Jessica Taylor MD [address] [place] [address] Uncontrolled type 2 diabetes mellitus with hyperglycemia (HCC)*; Type 2 diabetes mellitus with hemoglobin A1c goal of less than 7.0% (HCC); Typical atrial flutter (HCC); Body mass index (BMI) of 50.0 to 59.9 in adult (HCC); Chronic systolic congestive heart failure (HCC) Allergies Active Allergy Reactions Criticality Noted Date Comments Atorvastatin Hives High 11/28/2021 Lisinopril Edema face/lips/tongue High 11/21/2019 documented as of this encounter (statuses as of 02/24/2023) Medications Medication Sig Dispensed Refills Start Date End Date Status Blood Glucose Monitoring Suppl (ONETOUCH ULTRA SYSTEM) W/DEVICE KITIndications:DM type 2, goal A1c below 7 Use as directed 4 times a day as needed for Hyperglycemia (high sugar) or Hypoglycemia (low sugar). Dx E11.9 1 Kit 0 6 Active ONETOUCH ULTRA BLUE STRP 0 03/25/201 6 Active Cyanocobalamin (B-12) 1000 MCG Capsule [...] 5 0 Active ONETOUCH DELICA LANCETS 33G [facility] USE ONE LANCET TO CHECK GLUCOSE 4 [...] 3 billion cell capsule. 0 2 Active Metoprolol Succinate ER 50 MG Oral [...] 180 Tablet 3 3 Active Losartan Potassium 50 MG Oral [...] EVENING MEALS 60 Tablet 5 3 Active Amiodarone HCl 200 MG Oral Tablet (Cordarone)Indicat ions:Typical atrial flutter (HCC),Chronic systolic congestive heart failure (HCC),LBBB (left bundle branch block) Take 1 Tablet by mouth in the morning. 30 Tablet 0 3 Active Ozempic (1 MG/DOSE) 2 MG/1.5ML Subcutaneous Solution Pen-injector (Semaglutide (1 MG/DOSE)) Inject 1 mg under the skin once a week. 3 Each 1 3 Active Ozempic (0.25 or 0.5 MG/DOSE) 2 MG/1.5ML Solution Pen-injector (Semaglutide(0.25 or 0.5MG/DOS)) Inject 0.25 mg under the skin once a week. 1.5 mL 1 3 023 Discontinued documented as of this encounter (statuses as of 02/24/2023) Active Problems Problem Noted Date Diagnosed Date [...] as of this encounter (statuses as of 02/24/2023) Resolved Problems Problem Noted Date Diagnosed Date [...] as of this encounter (statuses as of 02/24/2023) Immunizations Name Administration Dates Next Due COVID-19 mRNA, LNP-s, No Pre serve, 2-Dose Series (Pfizer) 09/24/2020,09/03/2020 Pneumococcal Polysaccharide PPV23 (Pneumovax) TDAP (age 11 and older)(Adacel) 09/28/2009 documented as of this encounter Social History Tobacco Use Types Packs/Day Years Used Date Smoking Tobacco: Never Passive Smoke Exposure: Past Smokeless Tobacco: Never Tobacco Cessation:Counseling Given: Not Answered Alcohol Use Standard Drinks/Week Comments No 0 [...] on file documented as of this encounter Last Filed Vital Signs Vital Sign Reading Time Taken Comments Blood Pressure 146/88 02/24/2023 7:24 AM EST Pulse 72 02/24/2023 7:24 AM EST Temperature 36.2 C (97.1 F) 02/24/2023 7:24 AM ES T Respiratory Rate 18 02/24/2023 7:24 AM EST Oxygen Saturation 95% 02/24/2023 7:24 AM EST Inhaled Oxygen Concentration - - Weight 142.5 kg (314 lb 3.2 oz) 02/24/2023 7:24 AM EST Height 162.6 cm (5' 4") 02/24/2023 7:24 AM EST Body Mass Index 53.93 02/24/2023 7:24 AM EST documented in this encounter Patient Instructions * Patient Instructions* Jessica Taylor MD - 02/24/2023 7:38 AM EST Ozempic 0.5 mg weekly And then increase to 1 mg weekly And if AM glucose runs low 100s , call me back to adjust insulin dose documented in this encounter Progress Notes * Jessica Taylor MD - 02/24/2023 7:36 AM EST Subjective Patsy A Octavio is a 57 year old female. Chief Complaint Patient presents with Follow Up HPI: Here for one mo f/u Type 2 DM, insulin dependent , started ozempic with diet change Taking metformin Lost 17 pounds Glucose seems better last 2 wks Advised to increase to 0.5 mg and then increase 1 mg in 2-4 wks Diet - encouraged again Heart conditions, a flutter, CMP, CHF, HTN - stable HL - couldn't tolerate lipitor PMH: Patient Active Problem List Diagnosis Code ADVANCE DIRECTIVE INFORMATION DYSLIPIDEMIA, GOAL TO BE DETERMINED E78.5 Type 2 diabetes mellitus with hemoglobin A1c goal of less than 7.0% ([facility]) E11.9 Asthma in remission J45.998 Leg weakness, bilateral R29.898 Body mass index (BMI) of 50.0 to 59.9 in adult ([facility]) Z68.43 Typical atrial flutter ([facility]) I48.3 LBBB (left bundle branch block) I44.7 Chronic systolic congestive heart failure ([facility]) I50.22 Non-ischemic cardiomyopathy ([facility]) I42.8 History of ischemic heart disease Z86.79 RCA occlusion ([facility]) I24.0 Spinal stenosis of lumbar region with neurogenic claudication M48.062 Uncontrolled type 2 diabetes mellitus with hyperglycemia ([facility]) E11.65 Chronic kidney disease, stage 3a ([facility]) N18.31 Current Outpatient Medications Medication Sig Dispense Refill Blood Glucose Monitoring Suppl (Accelergy ULTRA SYSTEM) W/DEVICE KIT Use as directed 4 times a day as needed for Hyperglycemia (high sugar) or Hypoglycemia (low sugar). Dx E11.9 1 Kit 0 Comprehend SystemsTOUCH ULTRA BLUE STRP Cyanocobalamin (B-12) 1000 MCG Capsule Take 1 Capsule by mouth in the morning. Cholecalciferol (VITAMIN D) 1000 units Tablet Take 1 Tablet by mouth in the morning. Glucose Blood (O-filmUCH ULTRA BLUE) STRP USE ONE STRIP TO CHECK GLUCOSE 4 TIMES DAILY DIRECTED NEEDED FOR HYPERGLYCEMIA (HIGH SUGAR) OR HYPOGLYCEMIA (LOW SUGAR) 100 Strip 5 ONETOUCH DELICA LANCETS 33G [facility] USE ONE LANCET TO CHECK GLUCOSE 4 TIMES DAILY 200 Each 5 Torsemide 20 MG Oral Tablet (Demadex) Take 2 tablets in the morning and 1 tablet in the afternoon..90 Tablet 11 Omeprazole 20 MG Oral Capsule Delayed Release (PriLOSEC) Take by mouth 1 Capsule in the morning. 1 hour before the first meal of the day. 30 Capsule 5 Probiotic Daily Oral Capsule Take by mouth 1 Capsule in the morning. 3 billion cell capsule. Metoprolol Succinate ER 50 MG Oral Tablet Extended Release 24 Hour (toPROL XL) TAKE ONE TABLET BY MOUTH EVERY MORNING 30 Tablet 11 amLODIPine Besylate 2.5 MG Oral Tablet (Norvasc) TAKE ONE TABLET BY MOUTH AT BEDTIME 90 Tablet 0 Semglee (yfgn) 100 UNIT/ML Subcutaneous Solution Pen-injector (Insulin Glargine- yfgn) INJECT 50 UNITS UNDER THE SKIN AT BEDTIME. MAKE APPOINTMENT FOR MORE REFILLS 15 mL 0 Eliquis 5 MG Oral Tablet (Apixaban) TAKE 1 TABLET BY MOUTH IN THE MORNING AND 1 TABLET BEFORE BEDTIME 180 Tablet 3 Losartan Potassium 50 MG Oral Tablet (Cozaar) Take 1 Tablet by mouth in the morning. 90 Tablet 3 Furosemide 40 MG Oral Tablet (Lasix) TAKE ONE TABLET BY MOUTH EVERY MORNING 30 Tablet 0 metFORMIN HCl 500 MG Oral Tablet (Glucophage) TAKE ONE TABLET BY MOUTH TWICE A DAY WITH MORNING ANDEVENING MEALS 60 Tablet 5 Amiodarone HCl 200 MG Oral Tablet (Cordarone) Take 1 Tablet by mouth in the morning. 30 Tablet 0 Ozempic (1 MG/DOSE) 2 MG/1.5ML Subcutaneous Solution Pen-injector (Semaglutide (1 MG/DOSE)) Inject 1 mg under the skin once a week. 3 Each 1 No current facility-administered medications for this visit. Past Medical History: Diagnosis Date Asthma, severity to be determined 10/11/2009 DM type 2, goal A1C 7-8 04/15/2011 Dyslipidemia, goal to be determined 03/29/2009 GESTATIONAL DIABETES 10/07/2006 HTN, goal below 140/90 09/28/2009 OBESITY, UNSPECIFIED 1999 Past Surgical History: Procedure Laterality Date DELIVERY 1991 DELIVERY 1993 LIGATE/CUT OVIDUCT(S) 1995 Tubal Ligation REMOVAL OF KIDNEY STONE, OVER 2CM Right 02/04/2017 PERCUTANEOUS NEPHROSTOLITHOTOMY OVER 2CM [place] [facility] [place] of patient's allergies indicates: Allergen Reactions Atorvastatin Hives Lisinopril Edema face/lips/tongue Family History Problem Relation Age of Onset Cancer Mother pancreatic Cancer Diabetes Mother Heart Disorder Mother OR Hypertension Mother Skin cancer Mother Heart Disorder Father of OR in 40's Breast Cancer Sister 70 Hypertension Sister Diabetes Sister in her 70s Cancer Sister skin Cancer Sister skin Diabetes Uncle (Unspecified) LE amputation Family Status Relation Status Mo at age 70 Pancreatic Cancer Fa Sis Alive Sis Alive Sis Alive Bro Alive UNCLE Social History Socioeconomic History Marital status: Single Spouse name: Chris Number of children: 2 Years of education: Not on file Highest education level: Not on file Occupational History 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 Employer: [employer] Tobacco Use Smoking status: Never Passive exposure: Past Smokeless tobacco: Never Vaping Use Vaping Use: Never used Substance and Sexual Activity Alcohol use: No Drug use: No Sexual activity: Never Other Topics Concern Not on file Social History Narrative Not on file Social Determinants of Health Financial Resource Strain: Not on file Food Insecurity: No Food Insecurity (05/09/2019) Hunger Vital Sign Worried About Running Out of Food in the Last Year: Never true Ran Out of Food in the Last Year: Never true Transportation Needs: Not on file Physical Activity: Not on file Stress: Not on file Social Connections: Not on file Intimate Partner Violence: Not on file Housing Stability: Not on file Review of Systems Constitutional: Positive for fatigue. Negative for activity change, appetite change, chills, diaphoresis, fever and unexpected weight change. Respiratory: Negative for cough, chest tightness, shortness of breath and wheezing. Cardiovascular: Positive for leg swelling. Negative for chest pain and palpitations. Gastrointestinal: Negative for abdominal distention and abdominal pain. Musculoskeletal: Positive for arthralgias and gait problem. Neurological: Negative for dizziness, weakness and light-headedness. Psychiatric/Behavioral: Positive for sleep disturbance. Negative for agitation and behavioral problems. Objective BP 146/88 (BP Site: Left Arm, BP Position: Sitting, BP Cuff Size: Regular) | Pulse 72 | Temp 36.2 C (97.1 F) (Temporal Artery) | Resp 18 | Ht 1.626 m (5' 4") | Wt (!) 142.5 kg (314 lb 3.2 oz) | LMP 06/11/2012 | SpO2 95% | BMI 53.93 kg/m | BSA 2.54 m Physical Exam Constitutional: General: She is not in acute distress. Appearance: Normal appearance. She is obese. She is not ill-appearing, toxic- appearing or diaphoretic. HENT: Head: Normocephalic and atraumatic. Nose: Nose normal. Eyes: Extraocular Movements: Extraocular movements intact. Cardiovascular: Rate and Rhythm: Normal rate and regular rhythm. Pulses: Normal pulses. Heart sounds: Normal heart sounds. Pulmonary: Effort: Pulmonary effort is normal. No respiratory distress. Breath sounds: No stridor. No wheezing, rhonchi or rales. Chest: Chest wall: No tenderness. Musculoskeletal: General: Tenderness present. Right lower leg: Edema present. Left lower leg: Edema present. Neurological: General: No focal deficit present. Mental Status: She is alert and oriented to person, place, and time. Gait: Gait abnormal (cane). Psychiatric: Behavior: Behavior normal. ASSESSMENT/PLAN: Uncontrolled type 2 diabetes mellitus with hyperglycemia (HCC) (Primary) Type 2 diabetes mellitus with hemoglobin A1c goal of less than 7.0% (HCC) Typical atrial flutter (HCC) Body mass index (BMI) of 50.0 to 59.9 in adult (HCC) Chronic systolic congestive heart failure (HCC) Other orders - Ozempic (1 MG/DOSE) 2 MG/1.5ML Subcutaneous Solution Pen-injector (Semaglutide (1 MG/DOSE)); Inject 1 mg under the skin once a week. Follow Up: Return in about 2 months (around 04/26/2023) for Clinic Visit. | For: Clinic Visit Patient Instructions Ozempic 0.5 mg weekly And then increase to 1 mg weekly And if AM glucose runs low 100s , call me back to adjust insulin dose Jessica Taylor MD documented in this encounter Nursing Notes * Katerina Hager CCMA - 02/24/2023 7:24 AM EST Patsy Siddiqui is a 57 year old female who presents today for Chief Complaint Patient presents with Follow Up documented in this encounter Plan of Treatment Upcoming Encounters Date Type Department Care Team (Late st Contact Info) Description 03/25/2023 7:15 AM EST Cardiac Studies Cardiac Studies, [address] [place] [address] Health Maintenance Due Date [...] Additional history exists CKD HGB USE SMARTSET 34357 01/17/202401/16, 01/16/2023, 02/04/2021, Additional history exists CKD PHOS USE SMARTSET 11808 01/17/2024 01/16/2023 Mammogram 02/06/2024 02/05/2023, 05/22, 11/12/2017, Additional history exists GARDASIL-HPV IMMUNIZATION SERIES Aged Out No longer eligible based on patient's age to complete this topic MENINGOCOCCAL (MENACTRA/MENVEO) Aged Out No longer eligible based on patient's age to complete this topic documented as of this encounter Medical Devices Not on filedocumented as of this encounter Visit Diagnoses Diagnosis Uncontrolled type 2 diabetes mellitus with hyperglycemia (HCC)- Primary Type 2 diabetes mellitus with hemoglobin A1c goal of less than 7.0% (HCC) Typical atrial flutter (HCC) Atrial flutter Body mass index (BMI) of 50.0 to 59.9 in adult (HCC) Chronic systolic congestive heart failure (HCC) Chronic systolic heart failure documented in this encounter Advance Directives Latest Code Status on File Code Status Date Activated Date Inactivated Comments Full Code 02/03/2017 2:42 PM 02/05/2017 5:26 PM Thi s order reflects the patients wishes and were consensually agreed upon. Care Teams Tour Counselor Relationship Specialty Start Date End Date Jessica Taylor MD [address] [place] [address] PCP - General Internal Medicine 12/04/21 documented as of this encounter
--- OUTSIDE RECORDS SUMMARY | 2023-03-04 02:50 | External Medical Summary | Summary of Care ---
Author Name Unknown Organization [facility] Address [address] [place] [address] Phone [phone] Care Team Providers Care Acute Care Occupational Therapist Name Role Phone Jessica Taylor MD Primary Care Provider [phone] Reason for Referral * Precert (Within 10 days (routine)) - Pending Review Specialty Diagnoses / Procedures Referred By Gaurav medina Referred To Contact Radiology Diagnoses Leg weakness, bilateral Spinal stenosis of lumbar region with neurogenic claudication Procedures MRI L SPINE WO CONTRAST Jessica Taylor MD [address] [place] [address] Referral ID Status Reason Start Date Expiration Date V isits Requested Visits Authorized [id number] Pending Review 01/16/2023 999 999 * Evaluate & Treat - Unlimited Visits (Within 10 days (routine)) - Pending Review Specialty Diagnoses / Procedures Referred By Gaurav medina Referred To Contact Ophthalmology Diagnoses Type 2 diabetes mellitus with hemoglobin A1c goal of less than 7.0% (HCC) Uncontrolled type 2 diabetes mellitus with hyperglycemia (HCC) Jessica Taylor MD [address] [place] [address] Referral ID Status Reason Start Date Expiration Date Visits Requested Visits Authorized [id number] Pending Review Specialty Services Required 01/16/2023 999 999 Question Answer Referral Priority Within 10 days (routine) Referring to: Jung Referring for: Ophthalmology Conditions Ophthalmology Conditions Other Ophthalmology (comment) - diabetes retinopathy screen Reason for Visit * Reason Comments Acute Check up Balance is off started Thursday and getting worseRight ear pain on and off Encounter Details Date Type Department Care Team Description 01/16/2023 Office Visit [facility] [address] [place] [facility] [place] [address] Jessica Taylor MD [address] [place] [facility] [place] [address] Type 2 diabetes mellitus with hemoglobin A1c goal of less than 7.0% ([facility])*; Uncontrolled type 2 diabetes mellitus with hyperglycemia (HCC); Typical atrial flutter (HCC); Body mass index (BMI) of 50.0 to 59.9 in adult ([facility]); Non-ischemic cardiomyopathy ([facility]); Chronic kidney disease, stage 3a ([facility]); RCA occlusion (HCC); Leg weakness, bilateral; Chronic systolic congestive heart failure ([facility]); Asthma in remission; LBBB (left bundle branch block); History of ischemic heart disease; DYSLIPIDEMIA, GOAL TO BE DETERMINED; Spinal stenosis of lumbar region with neurogenic claudication; Encounter for screening mammogram for breast cancer Allergies Active Allergy Reactions Severity Noted Date Comments Atorvastatin Hives High 11/28/2021 Lisinopril Edema face/lips/tongue High 11/21/2019 documented as of this encounter (statuses as of 01/16/2023) Medications Medication Sig Dispensed Refills Start Date End Date Status Blood Glucose Monitoring Suppl ([employer]OUCH ULTRA SYSTEM) W/DEVICE KITIndications:DM type 2, goal [...] hemoglobin A1c goal of less than 7.0% ([facility]) USE ONE STRIP TO CHECK GLUCOSE 4 TIMES DAILY DIRECTED NEEDED FOR HYPERGLYCEMIA (HIGH SUGAR) OR HYPOGLYCEMIA (LOW SUGAR) 100 Strip 5 0 Active ONETOUCH DELICA LANCETS 33G MISC USE [...] THE MORNING 90 Tablet 1 3 Active metFORMIN HCl 500 MG Oral Tablet (Glucophage)Indica tions:Chronic systolic congestive heart failure (HCC),LBBB (left bundle branch block),Non-ischemi c cardiomyopathy (HCC) TAKE ONE TABLET BY MOUTH TWICE A DAY WITH MORNING AND EVENING MEALS 60 Tablet 0 3 Active Metoprolol Succinate ER 50 MG Oral Tablet Extended Release 24 Hour (toPROL XL)Indications:Acu te systolic (congestive) heart failure (HCC),Chronic systolic congestive heart failure (HCC),Typical atrial flutter (HCC) TAKE ONE TABLET BY MOUTH EVERY MORNING 30 Tablet 11 3 Active Furosemide 40 MG Oral Tablet (Lasix)Indications :Chronic systolic congestive heart failure (HCC),LBBB (left bundle branch block),Non-ischemi c cardiomyopathy (HCC) TAKE ONE TABLET BY MOUTH EVERY MORNING 30 Tablet 0 3 Active amLODIPine Besylate 2.5 MG Oral [...] the morning. 90 Tablet 3 3 Active Losartan Potassium 25 [...] . 1.5 mL 1 2 023 Discontinued Tamsulosin HCl 0.4 MG Oral Capsule (Flomax) Take 1 Capsule by mouth in the morning. 30 Capsule 3 3 023 Discontinued documented as of this encounter (statuses as of 01/16/2023) Active Problems Problem Noted Date Chronic kidney disease, stage 3a 022 Overview: Per CKD protocol Spinal stenosis of lumbar region with ne urogenic claudication 12/31/2021 Uncontrolled type 2 diabetes mellitus wi th hyperglycemia 12/31/2021 History of ischemic heart disease 2021 RCA occlusion 12/06/2021 Chronic systolic congestive heart failur e 05/13/2021 Non-ischemic cardiomyopathy 05/13/2021 Typical atrial flutter 01/11/2021 LBBB (left bundle branch block) 01/12/20 21 Body mass index (BMI) of 50.0 to 59.9 in adult 05/31/2019 Overview: Per Obesity protocol - - Leg weakness, bilateral 07/06/2018 Asthma in remission 06/28/2012 Type 2 diabetes mellitus with hemoglobin A1c goal of less than 7.0% 10/16/2011 Overview: ICD-10 update of inactive term DYSLIPIDEMIA, GOAL TO BE DETERMINED 03/20 Overview: Per Lipid Taxonomy. ADVANCE DIRECTIVE INFORMATION 04/24/2006 Overview: No, Advance Directive brochure given to patient at prior appointment. documented as of this encounter (statuses as of 01/16/2023) Resolved Problems Problem Noted Date Resolved Date Stage 3b chronic kidney disease 12/31/2021 01/30/2022 Chronic kidney disease, stage 3a 12/30/2021 01/30/2022 Overview: Per CKD protocol Body mass index (BMI) of 45.0 to 49.9 in adult 0 08/30/2018 06/01/2019 Overview: Per Obesity protocol #1 - - Lower extremity pain, posterior 07/01/2018 12/31/2021 Body mass index (BMI) of 50.0 to 59.9 in adult 0 05/31/2018 09/01/2018 Overview: Per Obesity protocol #1 - Body mass index (BMI) of 45.0 to 49.9 in adult 1 05/03/2016 06/03/2018 Overview: Per Obesity protocol #1 - Per Obesity protocol #1 Body mass index (BMI) of 50.0 to 59.9 in adult 1 03/06/2017 Overview: Per Obesity protocol #1 DM type 2 causing renal disease 09/15/2013 08/15/2016 HTN, goal below 140/80 12/08/2011 6 Overview: Per HTN Protocol #27. Right knee pain 11/06/2011 05/21/2015 HTN, goal below 130/80 10/16/2011 2 Overview: Per HTN Protocol #27. Obesity, morbid [...] of inactive term HTN, goal below 140/90 09/28/2009 2 Stress reaction, emotional 09/28/200905/21 Dyslipidemia, goal LDL below 160 10/07/2006 03/29/2009 Overview: Per Lipid Taxonomy. Gestational diabetes mellitus, antepartum 200606/28/2012 Elevated blood pressure, situational 10/07/2006 09/28/2009 Asthma, allergic 08/08/2002 10/11/2009 documented as of this encounter (statuses as of 01/16/2023) Immunizations Name Administration Dates Next Due COVID-19 [...] drink = 0.6 oz pur e alcohol) Alcohol Habits Answer Date Recorded How often do you have a drink containing alcohol ? Never 07/29/2018 How many drinks containing a lcohol do you have on a typical day when you are drinking? Not asked How often do you have six or more drinks on one occasion? Not asked Food Insecurity Answer Date Recorded Within the past 12 months, y ou worried that your food would run out before you got money to buy more. Never true 05/09/2019 Within the past 12 months, t he food you bought just didn't last and you didn't have money to get more. Never true 05/09/2019 Sex Assigned at Date Recorded Female 05/09/2019 7:[address] Job Start Date Occupation Industry Not on file Not on file Not on file documented as of this encounter Last Filed Vital Signs Vital Sign Reading Time Taken Comments Blood Pressure 142/88 01/16/2023 7:28 AM EDT Pulse 78 01/16/2023 7:28 AM EDT Temperature 35.7 C (96.2 F) 01/16/2023 7:28 AM ED T Respiratory Rate 22 01/16/2023 7:28 AM EDT Oxygen Saturation 98% 01/16/2023 7:28 AM EDT Inhaled Oxygen Concentration - - Weight 150.1 kg (331 lb) 01/16/2023 7:28 AM EDT Height 162.6 cm (5' 4") 01/16/2023 7:28 AM EDT Body Mass Index 56.82 01/16/2023 7:28 AM EDT documented in this encounter Progress Notes * Jessica Taylor MD - 01/16/2023 7:42 AM EDT Subjective Alma Rojas Como is a 57 year old female. Chief Complaint Patient presents with Acute Check up Balance is off started Thursday and getting worse Right ear pain on and off HPI: Mammogram - ordered Colonoscopy - can't get it due to high hba1c Diabetes Type 2 diabetes using insulin , oral med and diet. Taking medication as prescribed, see med list. Ordered ozempic last year but never started Non compliance issue and didn't f/u since then Glucose Monitoring: yes. Morning gl Hypoglycemic Episodes: no Patient is aware of hypoglycemic symptoms and knowledgeable about treatment Last retinal exam : ordered Denies associated neuropathy, polydipsia, polyphagia, poor wound healing, ulcers, change in vision and retinopathy. Will f./u hba1c Hypertension, a flutter , CHF, systolic CMP, HL, LBBB, RCA occlusion, CKD , intermittent asthma Taking medication as prescribed, see med list. No medication side effects noted. Advised patient tokeep healthy life style, regular exercise with good diet, [place]. low sodium diet. And also check BP at home too. Denies associated chest discomfort, chest heaviness, chest pressure, chest tightness, edema, palpitations + SOB on exertion but more due to morbid obesity BMI 56 - diet education , discussed again Progressing legs weakness, more balance issue with fall Using a cane, chronic pain Known severe lumbar spinal stenosis and cuada equina compression in MRI in 2019 Was seeing spinal surgery IMPRESSION: 1. L4-L5 severe spinal canal stenosis and cauda equina compression. Cauda equina nerve root enhancement at L4-L5 likely represents inflammation secondary to cauda equina compression. Spinal surgery consultation could be considered. 2. Additional mild L5-S1 spinal canal stenosis. No other lumbar spinal canal stenosis. 3. Nerve root contact at L2-L3, L3-L4, L4-L5, and L5-S1. Correlation with dermatomal symptom level recommended. 4. Multilevel neural foraminal narrowing, at worst moderate. 5. Grade 1 anterolisthesis of L4 on L5. Grade 1 retrolisthesis of L2 on L3 and L5 on S1. 6. 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 Currently not seeing , was slightly better, Can't do procedure, due to uncontrolled DM PMH: Patient Active Problem List Diagnosis Code ADVANCE DIRECTIVE INFORMATION DYSLIPIDEMIA, GOAL TO BE DETERMINED E78.5 Type 2 diabetes mellitus with hemoglobin A1c goal of less than 7.0% ([facility]) E11.9 Asthma in remission J45.998 Leg weakness, bilateral R29.898 Body mass index (BMI) of 50.0 to 59.9 in adult ([facility]) Z68.43 Typical atrial flutter ([facility]) I48.3 LBBB (left bundle branch block) I44.7 Chronic systolic congestive heart failure ([facility]) I50.22 Non-ischemic cardiomyopathy ([facility]) I42.8 History of ischemic heart disease Z86.79 RCA occlusion ([facility]) I24.0 Spinal stenosis of lumbar region with neurogenic claudication M48.062 Uncontrolled type 2 diabetes mellitus with hyperglycemia ([facility]) E11.65 Chronic kidney disease, stage 3a ([facility]) N18.31 Current Outpatient Medications Medication Sig Dispense Refill Blood Glucose Monitoring Suppl ([employer] ULTRA SYSTEM) W/DEVICE KIT Use as directed 4 times a day as needed for Hyperglycemia (high sugar) or Hypoglycemia (low sugar). Dx E11.9 1 Kit 0 [employer] Systems[employer]CH ULTRA BLUE STRP Cyanocobalamin (B-12) 1000 MCG Capsule Take 1 Capsule by mouth in the morning. Cholecalciferol (VITAMIN D) 1000 units Tablet Take 1 Tablet by mouth in the morning. Glucose Blood ([employer] ULTRA BLUE) STRP USE ONE STRIP TO CHECK GLUCOSE 4 TIMES DAILY DIRECTED NEEDED FOR HYPERGLYCEMIA (HIGH SUGAR) OR HYPOGLYCEMIA (LOW SUGAR) 100 Strip 5 [employer] IncTOUCH DELICA LANCETS 33G MISC USE ONE LANCET [...] in the morning. 3 billion cell capsule. Amiodarone HCl 200 MG Oral Tablet (Cordarone) TAKE 1 TABLET BY MOUTH ONCE DAILY IN THE MORNING 90 Tablet 1 metFORMIN HCl 500 MG Oral Tablet (Glucophage) TAKE ONE TABLET BY MOUTH TWICE A DAY WITH MORNING ANDEVENING MEALS 60 Tablet 0 Metoprolol Succinate ER 50 MG Oral Tablet Extended Release 24 Hour (toPROL XL) TAKE ONE TABLET BY MOUTH EVERY MORNING 30 Tablet 11 Furosemide 40 MG Oral Tablet (Lasix) TAKE ONE TABLET BY MOUTH EVERY MORNING 30 Tablet 0 amLODIPine Besylate 2.5 MG Oral Tablet (Norvasc) [...] 1 TABLET BEFORE BEDTIME 180 Tablet 3 Ozempic (0.25 or 0.5 MG/DOSE) 2 MG/1.5ML Solution Pen-injector (Semaglutide(0.25 or 0.5MG/DOS)) Inject 0.25 mg under the skin once a week. 1.5 mL 1 Losartan Potassium 50 MG Oral Tablet (Cozaar) Take 1 Tablet by mouth in the morning. 90 Tablet 3 No current facility-administered medications for this visit. 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 Employer: [employer] Tobacco Use Smoking status: Never Passive exposure: Past Smokeless tobacco: Never Vaping Use Vaping Use: Never used Substance and Sexual Activity Alcohol use: No Drug use: No Sexual activity: Never Other Topics Concern Not on file Social History Narrative Not on file Social Determinants of Health Financial Resource Strain: Not on file Food Insecurity: Not on file Transportation Needs: Not on file Physical Activity: Not on file Stress: Not on file Social Connections: Not on file Intimate Partner Violence: Not on file Housing Stability: Not on file Review of Systems Constitutional: Positive for activity change and fatigue. Negative for appetite change, chills, diaphoresis, fever and unexpected weight change. HENT: Positive for congestion, rhinorrhea and sneezing. Negative for hearing loss, sore throat and tinnitus. Eyes: Negative for visual disturbance. Respiratory: Positive for shortness of breath (on exertion). Negative for cough, chest tightness and wheezing. Cardiovascular: Positive for leg swelling. Negative for chest pain and palpitations. Gastrointestinal: Positive for constipation. Negative for abdominal distention, abdominal pain, diarrhea, nausea and vomiting. Endocrine: Negative. Genitourinary: Negative for pelvic pain. Musculoskeletal: Positive for arthralgias, back pain and gait problem. Skin: Negative for color change. Allergic/Immunologic: Positive for environmental allergies. Neurological: Positive for weakness (legs) and numbness. Negative for dizziness, tremors, speech difficulty, light-headedness and headaches. Hematological: Bruises/bleeds easily. Psychiatric/Behavioral: Positive for sleep disturbance. Negative for agitation and behavioral problems. Objective BP 142/88 | Pulse 78 | Temp 35.7 C (96.2 F) (Infrared ) | Resp 22 | Ht 1.626 m (5' 4") | Wt (!)150.1 kg (331 lb) | LMP 06/11/2012 | SpO2 98% | BMI 56.82 kg/m | BSA 2.6 m Physical Exam Constitutional: General: She is not in acute distress. Appearance: Normal appearance. She is obese. She is not ill-appearing, toxic- appearing or diaphoretic. HENT: Head: Normocephalic and atraumatic. Nose: Rhinorrhea present. Eyes: Extraocular Movements: Extraocular movements intact. Conjunctiva/sclera: Conjunctivae normal. Pupils: Pupils are equal, round, and reactive to light. Cardiovascular: Rate and Rhythm: Normal rate and regular rhythm. Pulses: Normal pulses. Heart sounds: Normal heart sounds. Pulmonary: Effort: Pulmonary effort is normal. No respiratory distress. Breath sounds: No stridor. No wheezing, rhonchi or rales. Chest: Chest wall: No tenderness. Abdominal: Palpations: Abdomen is soft. Tenderness: There is no abdominal tenderness. Musculoskeletal: General: Tenderness (back knees) present. Cervical back: Normal range of motion. Right lower leg: Edema present. Left lower leg: Edema present. Neurological: General: No focal deficit present. Mental Status: She is alert and oriented to person, place, and time. Cranial Nerves: No cranial nerve deficit. Sensory: Sensory deficit present. Motor: Weakness present. Gait: Gait abnormal. Psychiatric: Mood and Affect: Mood normal. Behavior: Behavior normal. ASSESSMENT/PLAN: Type 2 diabetes mellitus with hemoglobin A1c goal of less than 7.0% ([facility]) (Primary) - HEMOGLOBIN A1C; Future; Expected date: 01/16/2023 - COMPREHENSIVE METABOLIC PANEL; Future; Expected date: 01/16/2023 - CBC WITH WBC DIFFERENTIAL; Future; Expected date: 01/16/2023 - ADULT/PEDS OPHTHALMOLOGY/OPTOMETRY REFERRAL OP - TSH WITH FREE T4 IF INDICATED; Future; Expected date: 01/16/2023 Uncontrolled type 2 diabetes mellitus with hyperglycemia ([facility]) - ADULT/PEDS OPHTHALMOLOGY/OPTOMETRY REFERRAL OP Typical atrial flutter ([facility]) - LIPID PANEL WITH DIRECT LDL IF TG IS HIGH; Future; Expected date: 01/16/2023 Body mass index (BMI) of 50.0 to 59.9 in adult ([facility]) - LIPID PANEL WITH DIRECT LDL IF TG IS HIGH; Future; Expected date: 01/16/2023 - TSH WITH FREE T4 IF INDICATED; Future; Expected date: 01/16/2023 Non-ischemic cardiomyopathy ([facility]) - LIPID PANEL WITH DIRECT LDL IF TG IS HIGH; Future; Expected date: 01/16/2023 Chronic kidney disease, stage 3a ([facility]) - COMPREHENSIVE METABOLIC PANEL; Future; Expected date: 01/16/2023 - CBC WITH WBC DIFFERENTIAL; Future; Expected date: 01/16/2023 RCA occlusion ([facility]) - LIPID PANEL WITH DIRECT LDL IF TG IS HIGH; Future; Expected date: 01/16/2023 Leg weakness, bilateral - MRI L SPINE WO CONTRAST; Future; Expected date: 01/16/2023 Chronic systolic congestive heart failure ([facility]) Asthma in remission LBBB (left bundle branch block) History of ischemic heart disease DYSLIPIDEMIA, GOAL TO BE DETERMINED Spinal stenosis of lumbar region with neurogenic claudication - MRI L SPINE WO CONTRAST; Future; Expected date: 01/16/2023 Encounter for screening mammogram for breast cancer - MAMMOGRAM SCREENING JESUS BILATERAL; Future; Expected date: 01/16/2023 Other orders - Ozempic (0.25 or 0.5 MG/DOSE) 2 MG/1.5ML Solution Pen-injector (Semaglutide(0.25 or 0.5MG/DOS)); Inject 0.25 mg under the skin once a week. - Losartan Potassium 50 MG Oral Tablet (Cozaar); Take 1 Tablet by mouth in the morning. Follow Up: Return in about 2 weeks (around 01/30/2023) for Clinic Visit. | For: Clinic Visit --> Cont meds Adding ozempic Check glucose Diet change Mammogram Lumbar MRI Increase losartan 50 mg Jessica Taylor MD documented in this encounter Nursing Notes * Laury Chapman LPN - 01/16/2023 7:24 AM EDT Chief Complaint Patient presents with Acute Check up Balance is off started Thursday and getting worse Right ear pain on and off documented in this encounter Plan of Treatment Upcoming Encounters Date Type Specialty Care Team Description 01/30/2023 Office Visit Family Medicine Jessica Taylor MD [address] [place] [address] 02/05/2023 Imaging Radiology 03/25/2023 Cardiac Studies Cardiac Studies Pending Results Name Type Priority Associated Diagnoses Date /Time COMPREHENSIVE METABOLIC PANEL Lab Routine Type 2 diabetes mellitus with hemoglobin A1c goal of less than 7.0% ([facility]) Chronic kidney disease, stage 3a ([facility]) 01/16/2023 8:25 AM EDT CBC WITH WBC DIFFERENTIAL Lab Routine Type 2 diabetes mellitus with hemoglobin A1c goal of less than 7.0% ([facility]) Chronic kidney disease, stage 3a ([facility]) 01/16/2023 8:25 AM EDT TSH WITH FREE T4 IF INDICATED Lab Routine Type 2 diabetes mellitus with hemoglobin A1c goal of less than 7.0% ([facility]) Body mass index (BMI) of 50.0 to 59.9 in adult ([facility]) 01/16/2023 8:25 AM EDT Scheduled Orders Name Type Priority Associated Diagnoses Orde r Schedule COMPREHENSIVE METABOLIC PANEL Lab Routine Type 2 diabetes mellitus with hemoglobin A1c goal of less than 7.0% (HCC) Chronic kidney disease, stage 3a (HCC) Expected: 01/16/2023 (Approximate), Expires: 01/16/2024 CBC WITH WBC DIFFERENTIAL Lab Routine Type 2 diabetes mellitus with hemoglobin A1c goal of less than 7.0% (HCC) Chronic kidney disease, stage 3a (HCC) Expected: 01/16/2023 (Approximate), Expires: 01/17/2024 MAMMOGRAM SCREENING JESUS BILATERAL Medical Imaging Routine Encounter for screening mammogram for breast cancer Expected: 01/16/2023, Expires: 02/16/2024 TSH WITH FREE T4 IF INDICATED Lab Routine Type 2 diabetes mellitus with hemoglobin A1c goal of less than 7.0% (HCC) Body mass index (BMI) of 50.0 to 59.9 in adult (HCC) Expected: 01/16/2023 (Approximate), Expires: 01/16/2024 MRI L SPINE WO CONTRAST Medical Imaging Routine Leg weakness, bilateral Spinal stenosis of lumbar region with neurogenic claudication Expected: 01/16/2023, Expires: 02/16/2024 Scheduled Referrals Name Type Priority Associated Diagnoses Orde r Schedule ADULT/PEDS OPHTHALMOLOGY/OPTO METRY REFERRAL OP Referral Within 10 days (routine) Type 2 diabetes mellitus with hemoglobin A1c goal of less than 7.0% (HCC) Uncontrolled type 2 diabetes mellitus with hyperglycemia (HCC) Ordered: 01/16/2023 Health Maintenance Due Date Last Done Comments Hepatitis B (1 of 3 - 3-dose series) 1965 CKD PHOS USE SMARTSET 01021 07/17/1983 Hepatitis C Screening 07/17/1983 HPV/Co-Test 07/17/1995 Cologuard 2010 Colonoscopy 2010 Colorectal Cancer Screening 2010 Fecal Occult Blood Test 2010 Sigmoidoscopy 2010 Pneumococcal Vaccine: Pediatrics (0 to 5 Years) and At-Risk Patients (6 to 64 Years) (2 - PCV) 09/15/2014 09/15/2013 Zoster Vaccines (1 of 2) 07/17/2015 Cervical Cancer Screening 05/21/2018 Pap Smear 05/21/2018 05/21/2015, 09/18, 09/28/2009, Additional history exists DIABETES-EYE EXAM 05/24/2019 05/24/2018 DTaP,Tdap,and Td Vaccines (2 - Td or Tdap) 09/29/2019 09/28/2009, 1999, 04/20/1989 Mammogram 06/09/2020 06/09/2019, 10/19, 08/25/2016, Additional history exists COVID-19 Vaccine (3 - Pfizer series) 11/19/2020 09/24/2020, 09/03/2020 Depression Screening 12/29/2020 12/30/2019 CKD HGB USE SMARTSET 93499 02/04/202202/04, 02/05/2017, 02/04/2017, Additional history exists HbA1c 05/31/2022 11/28/2021, 01/18, 05/09/2019, Additional history exists GFR 06/06/2022 12/04/2021, 11/18, 02/04/2021, Additional history exists Diabetic Foot Exam 09/05/2022 09/05/2021, 0 07/30/2020, 05/09/2019, Additional history exists Albumin/Creatinine Ratio 11/28/2022 022, 10/16/2017, 08/15/2016, Additional history exists B-12 11/28/2022 11/28/2021, 01/18, 05/09/2019, Additional history exists Influenza Vaccine (FLU shot) (#1) 2022 GARDASIL-HPV IMMUNIZATION SERIES Aged Out No longer eligible based on patient's age to complete this topic MENINGOCOCCAL (MENACTRA/MENVEO) Aged Out No longer eligible based on patient's age to complete this topic documented as of this encounter Medical Devices Not on filedocumented as of this encounter Visit Diagnoses Diagnosis Type 2 diabetes mellitus with hemoglobin A1c goal of less than 7.0% (HCC)- Primary Uncontrolled type 2 diabetes mellitus with hyperglycemia (HCC) Typical atrial flutter (HCC) Atrial flutter Body mass index (BMI) of 50.0 to 59.9 in adult (HCC) Non-ischemic cardiomyopathy (HCC) Other primary cardiomyopathies Chronic kidney disease, stage 3a (HCC) RCA occlusion (HCC) Acute myocardial infarction, unspecified site, episode of care unspecified Leg weakness, bilateral Other musculoskeletal symptoms referable to limbs Chronic systolic congestive heart failure (HCC) Chronic systolic heart failure Asthma in remission Unspecified asthma LBBB (left bundle branch block) Other left bundle branch block History of ischemic heart disease Personal history of other diseases of circulatory system DYSLIPIDEMIA, GOAL TO BE DETERMINED Other and unspecified hyperlipidemia Spinal stenosis of lumbar region with neurogenic claudication Spinal stenosis, lumbar region, with neurogenic claudication Encounter for screening mammogram for breast cancer documented in this encounter Advance Directives Latest Code Status on File Code Status Date Activated Date Inactivated Comments Full Code 02/03/2017 2:42 PM 02/05/2017 5:26 PM Thi s order reflects the patients wishes and were consensually agreed upon. Care Teams Acute Care Occupational Therapist Relationship Specialty Start Date End Date Jessica Taylor MD [address], [place] [id number] PCP - General Internal Medicine 12/04/21 documented as of this encounter
--- OUTSIDE RECORDS SUMMARY | 2023-03-04 02:50 | External Medical Summary | Summary of Care ---
Author Name Unknown Organization [facility] Address [address] [facility] [address] Phone [phone] Care Team Providers Care Crew Chief Name Role Phone Jessica Taylor MD Primary Care Provider [phone] Encounter Details Date Type Department Care Team (Late st Contact Info) Description 02/16/2023 Telephone [facility] [address] [place] [address] Jessica Taylor MD [address] [place] [address] Allergies Active Allergy Reactions Criticality Noted Date Comments Atorvastatin Hives High 11/28/2021 Lisinopril Edema face/lips/tongue High 11/21/2019 documented as of this encounter (statuses as of 02/16/2023) Medications Medication Sig Dispensed Refills Start Date End Date Status Blood Glucose Monitoring Suppl (ONETOUCH ULTRA SYSTEM) W/DEVICE KITIndications:DM type 2, goal A1c below 7 Use as directed 4 times a day as needed for Hyperglycemia (high sugar) or Hypoglycemia (low sugar). Dx E11.9 1 Kit 0 05/23/2015 Active ONETOUCH ULTRA BLUE STRP 0 07/13/2015 Active Cyanocobalamin (B-12) 1000 MCG Capsule Take 1 Capsule by mouth in the morning. 0 Active Cholecalciferol (VITAMIN D) 1000 units Tablet Take 1 Tablet by mouth in the morning. 0 Active Glucose Blood (ONETOUCH ULTRA BLUE) STRPIndications:Type 2 diabetes mellitus with hemoglobin A1c goal of less than 7.0% ([facility]) USE ONE STRIP TO CHECK GLUCOSE 4 TIMES DAILY DIRECTED NEEDED FOR HYPERGLYCEMIA (HIGH SUGAR) OR HYPOGLYCEMIA (LOW SUGAR) 100 Strip 5 04/25/2019 Active ONETOUCH DELICA LANCETS 33G MIS USE ONE LANCET TO CHECK GLUCOSE 4 TIMES DAILY 200 Each 5 04/25/2019 Active Torsemide 20 MG Oral Tablet (Demadex)Indications :Acute systolic (congestive) heart failure (HCC),Chronic systolic congestive heart failure (HCC),Typical atrial flutter (HCC) Take 2 tablets in the morning and 1 tablet in the afternoon.. 90 Tablet 11 07/02/2021 Active Omeprazole 20 MG Oral Capsule Delayed Release (PriLOSEC) Take by mouth 1 Capsule in the morning. 1 hour before the first meal of the day. 30 Capsule 5 07/04/2021 Active Probiotic Daily Oral Capsule Take by mouth 1 Capsule in the morning. 3 billion cell capsule. 0 12/01/2021 Active Amiodarone HCl 200 MG Oral Tablet (Cordarone)Indicatio ns:Typical atrial flutter (HCC),Chronic systolic congestive heart failure (HCC),LBBB (left bundle branch block) TAKE 1 TABLET BY MOUTH ONCE DAILY IN THE MORNING 90 Tablet 1 08/05/2022 Active Metoprolol Succinate ER 50 MG Oral Tablet Extended Release 24 Hour (toPROL XL)Indications:Acute systolic (congestive) heart failure (HCC),Chronic systolic congestive heart failure (HCC),Typical atrial flutter (HCC) TAKE ONE TABLET BY MOUTH EVERY MORNING 30 Tablet 11 12/15/2022 Active amLODIPine Besylate 2.5 MG Oral Tablet (Norvasc) TAKE ONE TABLET BY MOUTH AT BEDTIME 90 Tablet 0 12/22/2022 Active Semglee (yfgn) 100 UNIT/ML Subcutaneous Solution Pen-injector (Insulin Glargine-yfgn)Indica tions:Type 2 diabetes mellitus with hemoglobin A1c goal of less than 7.0% ([facility]) INJECT 50 UNITS UNDER THE SKIN AT BEDTIME. MAKE APPOINTMENT FOR MORE REFILLS 15 mL 0 12/25/2022 Active Eliquis 5 MG Oral Tablet (Apixaban)Indication s:Acute systolic (congestive) heart failure (HCC),Chronic systolic congestive heart failure (HCC),Typical atrial flutter (HCC) TAKE 1 TABLET BY MOUTH IN THE MORNING AND 1 TABLET BEFORE BEDTIME 180 Tablet 3 01/12/2023 Active Ozempic (0.25 or 0.5 MG/DOSE) 2 MG/1.5ML Solution Pen-injector (Semaglutide(0.25 or 0.5MG/DOS)) Inject 0.25 mg under the skin once a week. 1.5 mL 1 01/16/2023 Active Losartan Potassium 50 MG Oral Tablet (Cozaar) Take 1 Tablet by mouth in the morning. 90 Tablet 3 01/16/2023 Active metFORMIN HCl 500 MG Oral Tablet (Glucophage)Indicati ons:Chronic systolic congestive heart failure (HCC),LBBB (left bundle branch block),Non-ischemic cardiomyopathy (HCC) TAKE ONE TABLET BY MOUTH TWICE A DAY WITH MORNING AND EVENNG MEALS 60 Tablet 0 01/19/2023 Active Furosemide 40 MG Oral Tablet (Lasix)Indications:C hronic systolic congestive heart failure (HCC),LBBB (left bundle branch block),Non-ischemic cardiomyopathy (HCC) TAKE ONE TABLET BY MOUTH EVERY MORNING 30 Tablet 0 02/02/2023 Active documented as of this encounter (statuses as of 02/16/2023) Active Problems Problem Noted Date Diagnosed Date [...] as of this encounter (statuses as of 02/16/2023) Resolved Problems Problem Noted Date Diagnosed Date [...] as of this encounter (statuses as of 02/16/2023) Immunizations Name Administration Dates Next Due COVID-19 [...] encounter Miscellaneous Notes * Telephone Encounter - Jessica Taylor MD [...] 7:15 AM EST Cardiac Studies Cardiac Studies, [facility] [address] [facility] [place] [address] Health Maintenance Due Date Last Done Comments [...] 05/09/2019, Additional history exists COVID-19 Vaccine (3 season) 2022 09/24/2020, 09/03/2020 Influenza Vaccine (FLU shot) (#1) 2022 GFR 07/17/2023 01/16/2023, 11/18, 11/28/2021, Additional history exists HbA1c 07/17/2023 01/16/2023, 11/18, 02/04/2021, Additional history exists Albumin/Creatinine Ratio 01/17/2024 023, 11/28/2021, 10/16/2017, Additional history exists CKD HGB USE SMARTSET 52629 01/17/202401/16, 01/16/2023, 02/04/2021, Additional history exists CKD PHOS USE SMARTSET 10273 01/17/2024 01/16/2023 Mammogram 02/06/2024 02/05/2023, 05/22, 11/12/2017, [...] and were consensually agreed upon. Care Teams Crew Chief Relationship Specialty Start Date End Date Jessica Taylor MD [address] [place] [facility] [place] [address] PCP - General Internal Medicine 12/04/21 documented as of this encounter
--- OUTSIDE RECORDS SUMMARY | 2023-03-04 02:50 | External Medical Summary | Summary of Care ---
Author Name Unknown Organization [facility] Address [address] [facility] [facility] [place] [address] Phone [phone] Care Team Providers Care Crew Dispatcher Name Role Phone Jessica Taylor MD Primary Care Provider [phone] Encounter Details Date Type Department Care Team (Late st Contact Info) Description 02/16/2023 Telephone [facility] [address] [place] [address] Jessica Taylor MD [address] [place] [address] Allergies Active Allergy Reactions Criticality [...] hemoglobin A1c goal of less than 7.0% ([facility]) USE ONE STRIP TO CHECK GLUCOSE [...] hemoglobin A1c goal of less than 7.0% ([facility]) INJECT 50 UNITS UNDER THE SKIN AT [...] encounter Miscellaneous Notes * Telephone Encounter - Laury Chapman LPN [...] 7:15 AM EST Cardiac Studies Cardiac Studies, [facility] [address] [facility] [place] [address] Health Maintenance Due Date [...] Additional history exists CKD HGB USE SMARTSET 51727 01/17/202401/16, 01/16/2023, 02/04/2021, Additional history exists CKD PHOS USE SMARTSET 50100 01/17/2024 01/16/2023 Mammogram 02/06/2024 02/05/2023, 05/22, 11/12/2017, [...] were consensually agreed upon. Care Teams Crew Dispatcher Relationship Specialty Start Date End Date Jessica Taylor MD [address] [place] [address] PCP - General Internal Medicine 12/04/21 documented as of this encounter
--- OUTSIDE RECORDS SUMMARY | 2023-03-04 02:50 | External Medical Summary | Summary of Care ---
Author Name Unknown Organization [facility] Address [address] [facility] [place] [address] Phone [phone] Care Team Providers Care A Operator Name Role Phone Jessica Taylor MD Primary Care Provider [phone] Reason for Visit * Reason Comments eRx-Medication Refill Encounter Details Date Type Department Care Team Description 02/01/2023 Refill [facility] [address] [place] [address] Jessica Taylor MD [address], [place] [phone] Chronic systolic congestive heart failure (HCC); LBBB (left bundle branch block); Non-ischemic cardiomyopathy (HCC) Allergies Active Allergy Reactions Severity Noted Date Comments Atorvastatin Hives High 11/28/2021 Lisinopril Edema face/lips/tongue High 11/21/2019 documented as of this encounter (statuses as of 02/03/2023) Medications Medication Sig Dispensed Refills Start Date [...] 5 0 Active ONETOUCH DELICA LANCETS 33G [facility] USE ONE LANCET TO CHECK GLUCOSE 4 [...] hemoglobin A1c goal of less than 7.0% ([facility]) INJECT 50 UNITS UNDER THE SKIN [...] the morning. 90 Tablet 3 3 Active metFORMIN HCl 500 MG Oral Tablet (Glucophage)Indica tions:Chronic systolic congestive heart failure (HCC),LBBB (left bundle branch block),Non-ischemi c cardiomyopathy (HCC) TAKE ONE TABLET BY MOUTH TWICE A DAY WITH MORNING AND EVENNG MEALS 60 Tablet 0 3 Active Furosemide 40 MG Oral Tablet (Lasix)Indications :Chronic systolic congestive heart failure (HCC),LBBB (left bundle branch block),Non-ischemi c cardiomyopathy (HCC) TAKE ONE TABLET BY MOUTH EVERY MORNING 30 Tablet 0 3 Active Furosemide 40 MG Oral Tablet (Lasix)Indications :Chronic systolic congestive heart failure (HCC),LBBB (left bundle branch block),Non-ischemi c cardiomyopathy (HCC) TAKE ONE TABLET BY MOUTH EVERY MORNING 30 Tablet 0 3 023 Discontinued documented as of this encounter (statuses as of 02/03/2023) Active Problems Problem Noted Date Chronic kidney [...] as of this encounter (statuses as of 02/03/2023) Resolved Problems Problem Noted Date Resolved Date [...] as of this encounter (statuses as of 02/03/2023) Immunizations Name Administration Dates Next Due COVID-19 [...] encounter Miscellaneous Notes * Telephone Encounter - Chloe De La Rosa CPhT - 02/03/2023 3:57 PM EDT Received message from [facility] regarding patient needing appointment. Letter was sent out to patient to advise. Thank you, Chloe De La Rosa [facility] Setter III [facility] ([facility]) (formerly Telepharmacy) 02/03/2023 3:57 PM Electronically signed by Chloe De La Rosa [facility] at 02/03/2023 3:58 PM EDT * Telephone Encounter - Miguelangel Ricketts [facility] - 02/02/2023 2:50 PM EDTSigned Prescriptions: Disp Refills Furosemide 40 MG Oral Tablet (Lasix) 30 Tab*0 Sig: TAKE ONE TABLET BY MOUTH EVERY MORNING Authorizing Provider: JESSICA TAYLOR Ordering User: MIGUELANGEL RICKETTS * Telephone Encounter - Miguelangel Ricketts [facility] - 02/02/2023 2:47 PM EDT Please contact patient so that an appointment can be scheduled with her PRIMARY CARE provider. Refill authorized to hold patient over in the mean time. Last Visit: 01/16/2023 (in office), 04/30/2021 (telemedicine) Next Visit: Visit date not found Return in about 2 weeks (around 01/30/2023) for Clinic Visit Thanks, Miguelangel Ricketts, PharmD Clinical Pharmacist [facility] ([facility]) (formerly Telepharmacy) [phone] 02/02/2023 2:48 PM documented in this encounter Plan of Treatment Upcoming Encounters Date Type Specialty Care Team Description 02/05/2023 Imaging Radiology 03/25/2023 Cardiac Studies Cardiac Studies Health Maintenance Due Date Last Done Comments [...] 06/09/2020 06/09/2019, 10/19, 08/25/2016, Additional history exists Depression Screening 12/29/2020 12/30/2019 Diabetic Foot Exam 09/05/2022 09/05/2021, 0 07/30/2020, 05/09/2019, Additional history exists B-12 11/28/2022 11/28/2021, 01/18, 05/09/2019, Additional history exists COVID-19 Vaccine (3 - 2022-24 season) 2022 09/24/2020, 09/03/2020 Influenza Vaccine (FLU shot) (#1) 2022 GFR 07/17/2023 01/16/2023, 11/18, 11/28/2021, Additional history exists HbA1c 07/17/2023 01/16/2023, 11/18, 02/04/2021, Additional history exists Albumin/Creatinine Ratio 01/17/2024 023, 11/28/2021, 10/16/2017, Additional history exists CKD HGB USE SMARTSET 14381 01/17/202401/16, 01/16/2023, 02/04/2021, Additional history exists CKD PHOS USE SMARTSET 92899 01/17/2024 01/16/2023 GARDASIL-HPV IMMUNIZATION SERIES Aged Out No longer [...] and were consensually agreed upon. Care Teams A Operator Relationship Specialty Start Date End Date Jessica Taylor MD [address] [place] [address] PCP - General Internal Medicine 12/04/21 documented as of this encounter
--- OUTSIDE RECORDS SUMMARY | 2023-03-04 02:50 | External Medical Summary | Summary of Care ---
Author Name Unknown Organization [facility] Address [address] [facility] [place] [address] Phone [phone] Care Team Providers Care Still Operator Helper Name Role Phone Jessica Taylor MD Primary Care Provider Reason for Visit * Reason Comments eRx-Medication Refill Encounter Details Date Type Department Care Team Description 01/18/2023 Refill [facility] [address] [place] [address] Jessica Taylor MD [address], [place] [phone] Chronic systolic congestive heart failure (HCC); LBBB (left bundle branch block); Non-ischemic cardiomyopathy (HCC) Allergies Active Allergy Reactions Severity Noted Date Comments Atorvastatin Hives High 11/28/2021 Lisinopril Edema face/lips/tongue High 11/21/2019 documented as of this encounter (statuses as of 01/19/2023) Medications Medication Sig Dispensed Refills Start Date [...] EVENNG MEALS 60 Tablet 0 3 Active metFORMIN HCl 500 MG Oral Tablet (Glucophage)Indica tions:Chronic systolic congestive heart failure (HCC),LBBB (left bundle branch block),Non-ischemi c cardiomyopathy (HCC) TAKE ONE TABLET BY MOUTH TWICE A DAY WITH MORNING AND EVENING MEALS 60 Tablet 0 3 023 Discontinued documented as of this encounter (statuses as of 01/19/2023) Active Problems Problem Noted Date Chronic kidney [...] as of this encounter (statuses as of 01/19/2023) Resolved Problems Problem Noted Date Resolved Date [...] as of this encounter (statuses as of 01/19/2023) Immunizations Name Administration Dates Next Due COVID-19 [...] encounter Miscellaneous Notes * Telephone Encounter - Noel Martinez RP - 01/19/2023 11:31 AM EDTSigned Prescriptions: Disp Refills metFORMIN HCl 500 MG Oral Tablet (Glucopha*60 Tab*0 Sig: TAKE ONE TABLET BY MOUTH TWICE A DAY WITH MORNING AND EVENNG MEALS Authorizing Provider: JESSICA TAYLOR Ordering User: NOEL MARTINEZ * Telephone Encounter - Noel Martinez RPh - 01/19/2023 11:31 AM EDT RX authorized. Zero refills given until upcoming appt. Thanks, Noel Martinez, PharmD Clinical Pharmacist [facility] ([facility] - Formerly Telepharmacy) [phone] 01/19/2023 11:31 AM documented in this encounter Plan of Treatment Upcoming Encounters Date Type Specialty Care Team Description 01/30/2023 Office Visit Family Medicine Jessica Taylor MD [address], [place] [phone] 02/05/2023 Imaging Radiology 03/25/2023 Cardiac Studies Cardiac [...] 11/19/2020 09/24/2020, 09/03/2020 Depression Screening 12/29/2020 12/30/2019 Diabetic Foot Exam 09/05/2022 09/05/2021, 0 07/30/2020, 05/09/2019, Additional history exists B-12 11/28/2022 11/28/2021, 01/18, 05/09/2019, Additional history exists Influenza Vaccine (FLU shot) (#1) 2022 GFR 07/17/2023 01/16/2023, 11/18, 11/28/2021, Additional history exists HbA1c 07/17/2023 01/16/2023, 11/18, 02/04/2021, Additional history exists Albumin/Creatinine Ratio 01/17/2024 023, 11/28/2021, 10/16/2017, Additional history exists CKD HGB USE SMARTSET 82545 01/17/202401/16, 01/16/2023, 02/04/2021, Additional history exists CKD PHOS USE SMARTSET 03776 01/17/2024 01/16/2023 GARDASIL-HPV IMMUNIZATION SERIES Aged Out [...] and were consensually agreed upon. Care Teams Still Operator Helper Relationship Specialty Start Date End Date Jessica Taylor MD [address] [place] [address] PCP - General Internal Medicine 12/04/21 documented as of this encounter
--- OUTSIDE RECORDS SUMMARY | 2023-03-04 02:50 | External Medical Summary | Summary of Care ---
Author Name Unknown Organization [facility] Address [address] [facility] [place] [address] Phone [phone] Care Team Providers Care Regulatory Affairs Assistant Name Role Phone Jessica Taylor MD Primary Care Provider [phone] Reason for Visit * Reason Comments Outpatient Testing Encounter Details Date Type Department Care Team Description 01/16/2023 Laboratory Laboratory, [place] [address] [place] [address] [place] [address] [place] [address] Type 2 diabetes mellitus with hemoglobin A1c goal of less than 7.0% (HCC); Chronic kidney disease, stage 3a (HCC); Dyslipidemia, goal to be determined; Typical atrial flutter (HCC); Body mass index (BMI) of 50.0 to 59.9 in adult (HCC); Non-ischemic cardiomyopathy (HCC); RCA occlusion ([facility]) Allergies Active Allergy Reactions Severity Noted Date Comments Atorvastatin Hives High 11/28/2021 Lisinopril Edema face/lips/tongue High 11/21/2019 documented as of this encounter (statuses as of 01/16/2023) Medications Medication Sig Dispensed Refills Start Date End Date Status Blood Glucose Monitoring Suppl (digiSchoolTOUCH ULTRA SYSTEM) W/DEVICE KITIndications:DM type 2, goal A1c below 7 Use as directed 4 times a day as needed for Hyperglycemia (high sugar) or Hypoglycemia (low sugar). Dx E11.9 1 Kit 0 05/23/2015 Active CamilooUCH ULTRA BLUE STRP 0 07/13/2015 Active Cyanocobalamin (B-12) 1000 MCG Capsule Take 1 Capsule by mouth in the morning. 0 Active Cholecalciferol (VITAMIN D) 1000 units Tablet Take 1 Tablet by mouth in the morning. 0 Active Glucose Blood (ONETOUCH ULTRA BLUE) STRPIndications:Type 2 diabetes mellitus with hemoglobin A1c goal of less than 7.0% ([facility]) USE ONE STRIP TO CHECK GLUCOSE 4 TIMES DAILY DIRECTED NEEDED FOR HYPERGLYCEMIA (HIGH SUGAR) OR HYPOGLYCEMIA (LOW SUGAR) 100 Strip 04/25/2019 Active ONETOUCH DELICA LANCETS 33G [facility] USE ONE LANCET TO CHECK GLUCOSE 4 [...] THE MORNING 90 Tablet 1 08/05/2022 Active metFORMIN HCl 500 MG Oral Tablet (Glucophage)Indicati ons:Chronic systolic congestive heart failure (HCC),LBBB (left bundle branch block),Non-ischemic cardiomyopathy (HCC) TAKE ONE TABLET BY MOUTH TWICE A DAY WITH MORNING AND EVENING MEALS 60 Tablet 0 12/16/2022 Active Metoprolol Succinate ER 50 MG Oral Tablet Extended Release 24 Hour (toPROL XL)Indications:Acute systolic (congestive) heart failure (HCC),Chronic systolic congestive heart failure (HCC),Typical atrial flutter (HCC) TAKE ONE TABLET BY MOUTH EVERY MORNING 30 Tablet 11 12/15/2022 Active Furosemide 40 MG Oral Tablet (Lasix)Indications:C hronic systolic congestive heart failure (HCC),LBBB (left bundle branch block),Non-ischemic cardiomyopathy (HCC) TAKE ONE TABLET BY MOUTH EVERY MORNING 30 Tablet 0 12/23/2022 Active amLODIPine Besylate 2.5 MG Oral Tablet [...] the morning. 90 Tablet 3 01/16/2023 Active documented as of this encounter (statuses [...] on file documented as of this encounter Plan of Treatment Upcoming Encounters Date Type Specialty Care Team Description 01/30/2023 Office Visit Family Medicine Jessica Taylor MD [address] [place] [address] 02/05/2023 Imaging Radiology 03/25/2023 Cardiac Studies Cardiac Studies Pending Results Name Type Priority Associated Diagnoses Date /Time ALBUMIN / CREATININE RATIO, URINE Lab Routine Type 2 diabetes mellitus with hemoglobin A1c goal of less than 7.0% ([facility]) 01/16/2023 8:25 AM EDT HEMOGLOBIN A1C Lab Routine Type 2 diabetes mellitus with hemoglobin A1c goal of less than 7.0% ([facility]) 01/16/2023 8:25 AM EDT PHOSPHORUS Lab Routine Chronic kidney disease, stage 3a ([facility]) 01/16/2023 8:25 AM EDT LIPID PANEL WITH DIRECT LDL IF TG IS HIGH Lab Routine Dyslipidemia, goal to be determined 01/16/2023 8:25 AM EDT COMPREHENSIVE METABOLIC PANEL Lab Routine Type 2 diabetes mellitus with hemoglobin A1c goal of less than 7.0% ([facility]) Chronic kidney disease, stage 3a ([facility]) 01/16/2023 8:25 AM EDT CBC WITH WBC DIFFERENTIAL Lab Routine Type 2 diabetes mellitus with hemoglobin A1c goal of less than 7.0% ([facility]) Chronic kidney disease, stage 3a ([facility]) 01/16/2023 8:25 AM EDT TSH WITH FREE T4 IF INDICATED Lab Routine Type 2 diabetes mellitus with hemoglobin A1c goal of less than 7.0% ([facility]) Body mass index (BMI) of 50.0 to 59.9 in adult ([facility]) 01/16/2023 8:25 AM EDT CBC Lab Routine Type 2 diabetes mellitus with hemoglobin A1c goal of less than 7.0% ([facility]) Chronic kidney disease, stage 3a ([facility]) 01/16/2023 8:25 AM EDT DIFFERENTIAL, AUTOMATED Lab Routine Type 2 diabetes mellitus with hemoglobin A1c goal of less than 7.0% (HCC) Chronic kidney disease, stage 3a (HCC) 01/16/2023 8:25 AM EDT Health Maintenance Due Date Last Done Comments Hepatitis B (1 of 3 - 3-dose series) 1965 CKD PHOS USE SMARTSET 50942 07/17/1983 Hepatitis C Screening 07/17/1983 HPV/Co-Test 07/17/1995 [...] Screening 12/29/2020 12/30/2019 CKD HGB USE SMARTSET 84865 02/04/202202/04, 02/05/2017, 02/04/2017, Additional history exists HbA1c [...] (HCC) Chronic kidney disease, stage 3a (HCC) Dyslipidemia, goal to be determined Other and unspecified hyperlipidemia Typical atrial flutter (HCC) Atrial flutter Body mass index (BMI) of 50.0 to 59.9 in adult (HCC) Non-ischemic cardiomyopathy (HCC) Other primary cardiomyopathies RCA occlusion (HCC) Acute myocardial infarction, unspecified site, episode of care unspecified documented in this encounter Advance Directives Latest Code Status on File Code Status Date Activated Date Inactivated Comments Full Code 02/03/2017 2:42 PM 02/05/2017 5:26 PM Thi s order reflects the patients wishes and were consensually agreed upon. Care Teams Regulatory Affairs Assistant Relationship Specialty Start Date End Date Jessica Taylor MD [address] [place] [address] PCP - General Internal Medicine 12/04/21 documented as of this encounter
--- OUTSIDE RECORDS SUMMARY | 2023-03-04 02:51 | External Medical Summary ---
Author Name Unknown Address Unknown Organization K01:[facility] [place] [address] [place] [address] Laboratory Report Ordering Provider Test Date Status ROWENA SOFIA 01/16/2023 08:25:51 Final Observation Date Value Abnormality Reference (Units ) Status TSH 01/16/2023 08:25:51 1.35 0.27-4.20 (uIU/mL) Final Performing Location LABORATORY [facility] - [address] [place] [address]
--- OUTSIDE RECORDS SUMMARY | 2023-03-04 02:51 | External Medical Summary ---
Author Name Unknown Address Unknown Organization K01:[facility] [place] [address] [place] [address] Laboratory Report Ordering Provider Test Date Status ROWENA SOFIA 01/16/2023 08:25:51 Final Observation Date Value Abnormality Reference (Units ) Status WBC, Total 01/16/2023 08:25:51 8.92 4.00-10.80 (K/uL) Final RBC 01/16/2023 08:25:51 4.64 3.85-5.15 (M/uL) Final Hemoglobin 01/16/2023 08:25:51 13.5 12.0-15.3 (g/dL) Final HCT 01/16/2023 08:25:51 42.2 36.0-45.2 (%) Final MCV 01/16/2023 08:25:51 90.9 81.5-97.5 (fL) Final MCH 01/16/2023 08:25:51 29.1 27.0-34.0 (pg) Final MCHC 01/16/2023 08:25:51 32.0 32.0-36.0 (g/dL) Final RDW 01/16/2023 08:25:51 13.0 11.5-15.5 (%) Final Platelets 01/16/2023 08:25:51 241 140-400 (K/uL) Final MPV 01/16/2023 08:25:51 13.0 6.6-11.1 (fL) Final Nucleated erythrocytes/100 leukocytes [Ratio] in Blood by Automated count 01/16/2023 08:25:51 0 <=0 (/100 WBCs) Final Performing Location [facility] [place] [address] [place] [address]
--- OUTSIDE RECORDS SUMMARY | 2023-03-04 02:51 | External Medical Summary ---
Author Name Unknown Address Unknown Organization K01:[facility] [address] [place] [address] Laboratory Report Ordering Provider Test Date Status ODALIS BRO 01/16/2023 08:25:51 Final Observation Date Value Abnormality Reference (Units ) Status Phosphate 01/16/2023 08:25:51 3.1 2.5-4.8 (m g/dL) Final Performing Location [facility] - [address] [place] [address]
--- OUTSIDE RECORDS SUMMARY | 2023-03-04 02:51 | External Medical Summary | Summary of Care ---
Author Name Unknown Organization [facility] Address [address] [facility] [place] [address] Phone [phone] Care Team Providers Care Instructional Systems Specialist Name Role Phone Jessica Taylor MD Primary Care Provider [phone] Reason for Visit * Reason Onset Date Comments eRx-Medication Refill Left Message 12/13/2022 Encounter Details Date Type Department Care Team Description 12/13/2022 Refill [facility] [address] [place] [address] Jessica Taylor MD [address] [place] [address] Chronic systolic congestive heart failure (HCC); LBBB (left bundle branch block); Non-ischemic cardiomyopathy (HCC) Allergies Active Allergy Reactions Severity Noted Date Comments Atorvastatin Hives High 11/28/2021 Lisinopril Edema face/lips/tongue High 11/21/2019 documented as of this encounter (statuses as of 12/17/2022) Medications Medication Sig Dispensed Refills Start Date End Date Status Blood Glucose Monitoring Suppl (ZannelTOUCH ULTRA SYSTEM) W/DEVICE KITIndications:DM type 2, goal A1c below 7 Use as directed 4 times a day as needed for Hyperglycemia (high sugar) or Hypoglycemia (low sugar). Dx E11.9 1 Kit 0 6 Active ONETOUCH ULTRA BLUE STRP 0 6 Active Cyanocobalamin (B-12) 1000 MCG Capsule Take 1,000 mcg by mouth daily. 0 Active Cholecalciferol (VITAMIN D) 1000 units Tablet Take 1,000 Units by mouth daily. 0 Active Glucose Blood (ONETOUCH ULTRA BLUE) STRPIndications:Ty pe 2 diabetes mellitus with hemoglobin A1c goal of less than 7.0% (HCC) USE ONE STRIP TO CHECK GLUCOSE 4 TIMES DAILY DIRECTED NEEDED FOR HYPERGLYCEMIA (HIGH SUGAR) OR HYPOGLYCEMIA (LOW SUGAR) 100 Strip 0 Active ONETOUCH DELICA LANCETS 33G MISC USE ONE LANCET TO CHECK GLUCOSE 4 TIMES DAILY 200 Each 0 Active Losartan Potassium 25 MG Oral Tablet (Cozaar)Indication s:Acute systolic (congestive) heart failure (HCC),Chronic systolic congestive heart failure (HCC),Typical atrial flutter (HCC) Take by mouth 1 Tablet in the morning. 30 Tablet 2 Active Torsemide 20 MG Oral Tablet (Demadex)Indicatio [...] first meal of the day. 30 Capsule 2 Active Probiotic Daily Oral Capsule Take by mouth 1 Capsule in the morning. 3 billion cell capsule. 0 2 Active Furosemide 40 MG Oral Tablet (Lasix)Indications :Chronic systolic congestive heart failure (HCC),LBBB (left bundle branch block),Non-ischemi c cardiomyopathy (HCC) Take by mouth 1 Tablet in the morning. 30 Tablet 2 Active Ozempic (0.25 or 0.5 MG/DOSE) 2 MG/1.5ML Solution Pen-injector (Semaglutide(0.25 or 0.5MG/DOS))Indicat ions:Type 2 diabetes mellitus with hemoglobin A1c goal of less than 7.0% (HCC),Uncontrolled type 2 diabetes mellitus with hyperglycemia (HCC) Inject under the skin 0.25 mg once a week . 1.5 mL 1 2 Active amLODIPine Besylate 2.5 MG Oral Tablet (Norvasc) TAKE ONE TABLET BY MOUTH AT BEDTIME 30 Tablet 3 Active Amiodarone HCl 200 MG Oral Tablet (Cordarone)Indicat ions:Typical atrial flutter (HCC),Chronic systolic congestive heart failure (HCC),LBBB (left bundle branch block) TAKE 1 TABLET BY MOUTH ONCE DAILY IN THE MORNING 90 Tablet 1 3 Active Apixaban 5 MG Oral Tablet (Eliquis)Indicatio ns:Acute systolic (congestive) heart failure (HCC),Chronic systolic congestive heart failure (HCC),Typical atrial flutter (HCC) Take 1 Tablet by mouth in the morning and 1 Tablet before bedtime. 180 Tablet 1 3 Active Tamsulosin HCl 0.4 MG Oral Capsule (Flomax) Take 1 Capsule by mouth in the morning. 30 Capsule 3 3 Active Insulin Glargine-yfgn 100 UNIT/ML Subcutaneous Solution Pen-injector (Semglee (yfgn))Indications :Type 2 diabetes mellitus with hemoglobin A1c goal of less than 7.0% (HCC) Inject 50 Units under the skin at bedtime. Make appointment with physician for more refills. 15 mL 0 3 Active metFORMIN HCl 500 MG [...] by mouth 1 Tablet in the morning. In the morning.. 30 Tablet 11 2 023 Discontinued metFORMIN HCl 500 MG Oral Tablet (Glucophage)Indica tions:Chronic systolic congestive heart failure (HCC),LBBB (left bundle branch block),Non-ischemi c cardiomyopathy (HCC) TAKE ONE TABLET BY MOUTH TWICE A DAY WITH MORNING AND EVENING MEALS 180 Tablet 1 3 023 Discontinued documented as of this encounter (statuses as of 12/17/2022) Active Problems Problem Noted Date Chronic kidney disease, stage 3a 11/14/2 022 Overview: Per CKD protocol Spinal stenosis [...] as of this encounter (statuses as of 12/17/2022) Resolved Problems Problem Noted Date Resolved Date [...] as of this encounter (statuses as of 12/17/2022) Immunizations Name Administration Dates Next Due COVID-19 [...] encounter Miscellaneous Notes * Telephone Encounter - JUDY Goodman - 12/17/2022 11:00 AM EDT LMOM to schedule per messages below. * Telephone Encounter - Jessica Taylor MD - 12/16/2022 9:47 AM EDT Uncontrolled DM, no recent f/u , will refill med for one mo Pt should see a provider shannan * Telephone Encounter - Jessica Taylor MD - 12/16/2022 9:47 AM EDTSigned Prescriptions: Disp Refills metFORMIN HCl 500 MG Oral Tablet (Glucopha*60 Tab*0 Sig: TAKE ONE TABLET BY MOUTH TWICE A DAY WITH MORNING AND EVENING MEALS Authorizing Provider: JESSICA TAYLOR * Telephone Encounter - Jasmin Connell CPhT - 12/16/2022 8:59 AM EDTPending Prescriptions: Disp Refills metFORMIN HCl 500 MG Oral Tablet (Glucopha*60 Tab*0 Sig: TAKE ONE TABLET BY MOUTH TWICE A DAY WITH MORNING AND EVENING MEALS * Telephone Encounter - Jasmin Connell CPhT - 12/16/2022 8:59 AM EDT Received message from [facility] regarding patient needing appointment and labs. Placed call to patient toadvise. Left message on voicemail advising of required labs and to call back for an appointment. Thank you, Jasmin Connell CPhT [employer] [facility] ( Formerly Telepharmacy) 12/16/2022,8:59 AM * Telephone Encounter - Betty Galvez [facility] - 12/15/2022 7:49 AM EDTPending Prescriptions: Disp Refills metFORMIN HCl 500 MG Oral Tablet (Glucopha*60 Tab*0 Sig: TAKE ONE TABLET BY MOUTH TWICE A DAY WITH MORNING AND EVENING MEALS * Telephone Encounter - Betty Galvez RP - 12/15/2022 7:48 AM EDT 2nd attempt Unable to authorize medication refills for pended medication(s) at this time. Part of the protocol criteria used for refill authorization was not satisfied. Per refill protocol patient should have labs and office visit on file within past year. Reviewed AMP report, Care Gaps/Health Maintenance, medications list, and for any routine labs typically orderedfor this patient. Lab orders placed. Please contact patient to schedule office visit with her PRIMARY CARE and advise of labs ordered for blood draw AND URINE specimen (patient will have to be able to void to provide sample).. Recommendpatient to fast if able for labs. Patient may still have water and regular medications. Advise to obtain labs before her scheduled office visit Visit date not found. Last Visit: 12/31/2021 (in office), 04/30/2021 (telemedicine) Next Visit: Visit date not found After contacting patient, please forward request to Jessica Taylor MD. Thank You, Betty Galvez [facility] Clinical Pharmacist [facility] ([facility]) (formerly Telepharmacy) [phone] 12/15/2022, 7:48 AM documented in this encounter Plan of Treatment Health Maintenance Due Date Last Done Comments Hepatitis B (1 of 3 - 3-dose series) 1965 CKD PHOS USE SMARTSET 62586 07/17/1983 Hepatitis C Screening 07/17/1983 HPV/Co-Test 07/17/1995 [...] - Pfizer series) 11/19/2020 09/24/2020, 09/03/2020 Depression Screening, Annual for Pts 12 and Over 12/29/2020 12/30/2019 CKD HGB USE SMARTSET 19409 02/04/202202/04, 02/05/2017, 02/04/2017, Additional history exists HbA1c 05/31/2022 11/28/2021, 01/18, 05/09/2019, Additional history exists GFR 06/06/2022 12/04/2021, 11/18, 02/04/2021, Additional history exists DIABETES-FOOT EXAM 09/05/2022 09/05/2021, 0 07/30/2020, 05/09/2019, Additional history [...] and were consensually agreed upon. Care Teams Instructional Systems Specialist Relationship Specialty Start Date End Date Jessica Taylor MD [address] [place] [address] PCP - General Internal Medicine 12/04/21 documented as of this encounter
--- OUTSIDE RECORDS SUMMARY | 2023-03-04 02:51 | External Medical Summary | Summary of Care ---
Author Name Unknown Organization [facility] Address [address] [facility] [place] [place] [address] Phone [phone] Care Team Providers Care Power Equipment Technology Instructor Name Role Phone Jessica Taylor MD Primary Care Provider [phone] Reason for Visit * Reason Comments eRx-Medication Refill Encounter Details Date Type Department Care Team Description 09/12/2022 Refill [facility] [address] [place] [address] Jessica Taylor MD [address], [place] [id number] Allergies Active Allergy Reactions Severity Noted Date Comments Atorvastatin Hives High 11/28/2021 Lisinopril Edema face/lips/tongue High 11/21/2019 documented as of this encounter (statuses as of 09/18/2022) Medications Medication Sig Dispensed Refills Start Date [...] TIMES DAILY 200 Each 5 0 Active Losartan Potassium 25 MG Oral [...] in the morning. 30 Tablet 2 Active Metoprolol Succinate ER 50 MG Oral Tablet Extended Release 24 Hour (toPROL XL)Indications:Acu te systolic (congestive) heart failure (HCC),Chronic systolic congestive heart failure (HCC),Typical atrial flutter (HCC) Take by mouth 1 Tablet in the morning. In the morning.. 30 Tablet 2 Active Ozempic (0.25 or 0.5 MG/DOSE) 2 MG/1.5ML Solution Pen-injector (Semaglutide(0.25 or 0.5MG/DOS))Indicat ions:Type 2 diabetes mellitus with hemoglobin A1c goal of less than 7.0% (HCC),Uncontrolled type 2 diabetes mellitus with hyperglycemia (HCC) Inject under the skin 0.25 mg once a week . 1.5 mL 1 2 Active metFORMIN HCl 500 MG Oral Tablet (Glucophage)Indica tions:Chronic systolic congestive heart failure (HCC),LBBB (left bundle branch block),Non-ischemi c cardiomyopathy (HCC) TAKE ONE TABLET BY MOUTH TWICE A DAY WITH MORNING AND EVENING MEALS 180 Tablet 1 3 Active amLODIPine Besylate 2.5 MG Oral Tablet (Norvasc) TAKE ONE TABLET BY MOUTH AT BEDTIME 30 Tablet 5 3 Active Amiodarone HCl 200 [...] before bedtime. 180 Tablet 1 3 Active Semglee (yfgn) 100 UNIT/ML Subcutaneous Solution Pen-injector (Insulin Glargine-yfgn) INJECT 50 UNITS UNDER THE SKIN AT BEDTIME 3 mL 0 3 Active Semglee (yfgn) 100 UNIT/ML Subcutaneous Solution Pen-injector Inject 50 Units under the skin at bedtime. 15 mL 3 3 023 Discontinued documented as of this encounter (statuses as of 09/18/2022) Active Problems Problem Noted Date Chronic kidney [...] as of this encounter (statuses as of 09/18/2022) Resolved Problems Problem Noted Date Resolved Date [...] as of this encounter (statuses as of 09/18/2022) Immunizations Name Administration Dates Next Due COVID-19 [...] * Telephone Encounter - JUDY Goodman - 09/18/2022 8:32 AM EDT LMOM. Letter sent. 09/18/2022 * Telephone Encounter - Jessica Taylor MD - 09/16/2022 9:31 AM EDTSigned Prescriptions: Disp Refills Semglee (yfgn) 100 UNIT/ML Subcutaneous So*3 mL 0 Sig: INJECT 50 UNITS UNDER THE SKIN AT BEDTIME Authorizing Provider: ROSITA CHANCE * Telephone Encounter - JUDY Goodman - 09/16/2022 8:41 AM EDT LMOM to schedule labs and appointment. 09/16/2022 * Telephone Encounter - Rosita Chance PA-C - 09/13/2022 1:01 PM EDT Abs not current appt due One sent Needs scheduled Rosita Chance PA-C 09/13/2022 1:01 PM * Telephone Encounter - Latha Ricketts [facility] - 09/13/2022 12:28 PM EDTPending Prescriptions: Disp Refills Semglee (yfgn) 100 UNIT/ML Subcutaneous So*15 mL 3 Sig: Inject 50 Units under the skin at bedtime. * Telephone Encounter - Latha Ricketts [facility] - 09/13/2022 12:27 PM EDT Unable to authorize medication refills for pended medication(s) at this time. Part of the protocol criteria used for refill authorization was not satisfied. Patient needs a1c WNL. Please approve if appropriate. Last a1c 12.7 Thanks, Latha Ricketts, PharmD Clinical Pharmacist [facility] [phone] 09/13/2022 12:27 PM * Telephone Encounter - Latha Ricketts [facility] - 09/13/2022 12:26 PM EDT Pending Prescriptions: Disp Refills Semglee (yfgn) 100 UNIT/ML Subcutaneous S*15 mL 3 Sig: INJECT 50 UNITS UNDER THE SKIN AT BEDTIME Last Visit: 12/31/2021 (in office), 04/30/2021 (telemedicine) Next Visit: Visit date not found If no future appointments scheduled, and last appointment is greater than a year ago, please schedule patient for a follow-up appointment Last date the medication was ordered: 05/06/22 Pharmacy: [facility] [id number] Is this request for a controlled substance? No Urine Drug Screen:No results found for this [...] 3-dose series) 1965 CKD PHOS USE SMARTSET 48254 07/17/1983 Hepatitis C Screening 07/17/1983 Cologuard 2010 Colonoscopy 2010 Colorectal Cancer Screening 2010 Fecal Occult Blood Test 2010 Sigmoidoscopy 2010 Pneumococcal Vaccine: Pediatrics (0 to 5 Years) and At-Risk Patients (6 to 64 Years) (2 - PCV) 09/15/2014 09/15/2013 Zoster Vaccines (1 of 2) 07/17/2015 DIABETES-EYE EXAM 05/24/2019 05/24/2018 DTaP,Tdap,and Td Vaccines (2 - Td or Tdap) 09/29/2019 09/28/2009, 1999, 04/20/1989 Pap Smear 05/21/2020 05/21/2015, 09/18, 09/28/2009, Additional history exists Mammogram 06/09/2020 06/09/2019, 10/19, 08/25/2016, Additional history exists COVID-19 Vaccine (3 - Booster for Pfizer series) 11/19/2020 09/24/2020, 09/03/2020 Depression Screening, Annual for Pts 12 and Over 12/29/2020 12/30/2019 CKD HGB USE SMARTSET 14849 02/04/202202/04, 02/05/2017, 02/04/2017, Additional history exists HbA1c 05/31/2022 11/28/2021, 01/18, 05/09/2019, Additional history exists GFR 06/06/2022 12/04/2021, 11/18, 02/04/2021, Additional history exists DIABETES-FOOT EXAM 09/05/2022 09/05/2021, 0 07/30/2020, 05/09/2019, Additional history exists Albumin/Creatinine Ratio 11/28/2022 022, 10/16/2017, 08/15/2016, Additional history exists Yearly B-12 11/28/2022 11/28/2021, 01/18, 05/09/2019, Additional history exists Influenza Vaccine (FLU shot) (Season Ended) 2022 GARDASIL-HPV IMMUNIZATION SERIES Aged Out No [...] and were consensually agreed upon. Care Teams Power Equipment Technology Instructor Relationship Specialty Start Date End Date Jessica Taylor MD [address] [place] [address] PCP - General Internal Medicine 12/04/21 documented as of this encounter
--- OUTSIDE RECORDS SUMMARY | 2023-03-04 02:51 | External Medical Summary ---
Author Name Unknown Address Unknown Organization K01:[facility] [place] [address] [place] [address] Laboratory Report Ordering Provider Test Date Status ODALIS BRO 01/16/2023 08:25:51 Final Normal: <30 mg/g creatinine< br/>High: 30-300 mg/g creatinine
Very High: >300 mg/g creatinine
Nephrotic: >2200 mg/g creatinine Observation Date Value Abnormality Reference (Units ) Status Albumin, Urine 01/16/2023 08:25:51 121.65 (mg/dL) Final Creatinine, Urine 01/16/2023 08:25:51 30 (mg/dL) Final Albumin/Creatinine [Mass Ratio] in Urine 01/16/2023 08:25:51 4055 Above high normal <30 (mg/g Creat) Final Performing Location [facility] [place] [address] [place] [address]
--- OUTSIDE RECORDS SUMMARY | 2023-03-04 02:51 | External Medical Summary ---
Author Name Unknown Address Unknown Organization K01:[facility] [address] [place] [address] Laboratory Report Ordering Provider Test Date Status ROWENA SOFIA 01/16/2023 08:25:51 Final Observation Date Value Abnormality Reference (Units ) Status BUN 01/16/2023 08:25:51 21 Above high normal 6-20 (mg/dL) Final Creatinine 01/16/2023 08:25:51 0.9 0.5-1.0 (mg/dL) Final Glomerular filtration rate/1.73 sq M.predicted [Volume Rate/Area] in Serum, Plasma or Blood by Creatinine-based formula (CKD-EPI) 01/16/2023 08:25:51 78 >=60 (mL/min) Final eGFR is calculated based on the CKD-EPI 2020 equation SODIUM 01/16/2023 08:25:51 143 135-146 (m mol/L) Final Potassium 01/16/2023 08:25:51 3.9 3.5-5.1 (m mol/L) Final Cl 01/16/2023 08:25:51 100 98-107 (mm ol/L) Final CO2 01/16/2023 08:25:51 28 22-32 (mmo l/L) Final Anion gap 01/16/2023 08:25:51 15 7-15 (mmol /L) Final Glucose 01/16/2023 08:25:51 285 Above high normal 70 -120 (mg/dL) Final Albumin 01/16/2023 08:25:51 4.3 3.8-5.0 (g /dL) Final AST (Aspartate aminotransferase) 01/16/2023 08:25:51 11 10-35 (U/L) Fin al Alk Phos 01/16/2023 08:25:51 92 35-130 (U/ L) Final Bilirubin, Total 01/16/2023 08:25:51 0.4 <=1 .2 (mg/dL) Final Calcium 01/16/2023 08:25:51 9.9 8.4-10.2 ( mg/dL) Final Protein 01/16/2023 08:25:51 7.1 6.0-8.3 (g /dL) Final ALT (Alanine aminotransferase) 01/16/2023 08:25:51 19 10-35 (U/L) Henrique chicas Performing Location [facility] [place] [address] [facility] [address]
--- OUTSIDE RECORDS SUMMARY | 2023-03-04 02:51 | External Medical Summary ---
Author Name Unknown Address Unknown Organization K01[place] [place] [address] [address] Laboratory Report Ordering Provider Test Date Status ODALIS BRO 01/16/2023 08:25:51 Final Observation Date Value Abnormality Reference (Units ) Status HbA1C 01/16/2023 08:25:51 10.6 Above high normal 4. 0-5.6 (%) Final The use of HbA1c to monitor glycemic status is based on normal hemoglobin and HbA composition. This test should not be used in patients with abnormal hemoglobin that affects the half life of the red blood cell or the in vivo glycation rates. Glucose, estimated average 01/16/2023 08:25:51 258 Above high normal <126 (mg/dL) Henrique chicas Performing Location [facility] [place] [address] [place] [address]
--- OUTSIDE RECORDS SUMMARY | 2023-03-04 02:51 | External Medical Summary | Summary of Care ---
Author Name Unknown Organization [facility] Address [address] [facility] [place] [address] Phone [phone] Care Team Providers Care Case Sealer Name Role Phone Jessica Taylor MD Primary Care Provider [phone] Reason for Visit * Reason Comments eRx-Medication Refill Encounter Details Date Type Department Care Team Description 12/13/2022 Refill Cardiology, [facility] [address] [place] [address] Erik Huertas, [address] [place] [address] Acute systolic (congestive) heart failure (HCC); Chronic systolic congestive heart failure (HCC); Typical atrial flutter (HCC) Allergies Active Allergy Reactions Severity Noted Date Comments Atorvastatin Hives High 11/28/2021 Lisinopril Edema face/lips/tongue High 11/21/2019 documented as of this encounter (statuses as of 12/15/2022) Medications Medication Sig Dispensed Refills Start Date [...] Strip 0 Active ONETOUCH DELICA LANCETS 33G [facility] USE ONE LANCET TO CHECK GLUCOSE 4 [...] more refills. 15 mL 0 3 Active Metoprolol Succinate ER 50 MG Oral Tablet Extended Release 24 Hour (toPROL XL)Indications:Acu te systolic (congestive) heart failure (HCC),Chronic systolic congestive heart failure (HCC),Typical atrial flutter (HCC) TAKE ONE TABLET BY MOUTH EVERY MORNING 30 Tablet 11 3 Active Metoprolol Succinate ER 50 MG Oral Tablet Extended Release 24 Hour (toPROL XL)Indications:Acu te systolic (congestive) heart failure (HCC),Chronic systolic congestive heart failure (HCC),Typical atrial flutter (HCC) Take by mouth 1 Tablet in the morning. In the morning.. 30 Tablet 11 2 023 Discontinued documented as of this encounter (statuses as of 12/15/2022) Active Problems Problem Noted Date Chronic kidney [...] as of this encounter (statuses as of 12/15/2022) Resolved Problems Problem Noted Date Resolved Date [...] as of this encounter (statuses as of 12/15/2022) Immunizations Name Administration Dates Next Due COVID-19 [...] Date Recorded Female 05/09/2019 7:46 AM E Job Start Date Occupation Industry Not on file Not on file Not on file documented as of this encounter Miscellaneous Notes * Telephone Encounter - Erik Huertas DO - 12/15/2022 11:01 AM EDTSigned Prescriptions: Disp Refills Metoprolol Succinate ER 50 MG Oral Tablet *30 Tab*11 Sig: TAKE ONE TABLET BY MOUTH EVERY MORNING Authorizing Provider: ERIK HUERTAS * Telephone Encounter - Margarita Lomax CMA - 12/15/2022 10:44 AM EDTPending Prescriptions: Disp Refills Metoprolol Succinate ER 50 MG Oral Tablet *30 Tab*11 Sig: TAKE ONE TABLET BY MOUTH EVERY MORNING * Telephone Encounter - Margarita Lomax CMA - 12/15/2022 10:44 AM EDT Did you pend patient's preferred pharmacy and medication before forwarding?yes Pharmacy: [facility] [address] Pending Prescriptions: Disp Refills Metoprolol Succinate ER 50 MG Oral Tablet*30 Tab*11 Sig: TAKE ONE TABLET BY MOUTH EVERY MORNING Last Visit: 05/13/2021 (in office), Visit date not found (telemedicine) Next Visit: Visit date not found If no future appointments scheduled, and last appointment is greater than a year ago, please schedule patient for a follow-up appointment Last date the medication was ordered: Is this request for a controlled substance?No [...] 3-dose series) 1965 CKD PHOS USE SMARTSET 97680 07/17/1983 Hepatitis C Screening 07/17/1983 HPV/Co-Test 07/17/1995 [...] Over 12/29/2020 12/30/2019 CKD HGB USE SMARTSET 35592 02/04/202202/04, 02/05/2017, 02/04/2017, Additional history exists HbA1c [...] and were consensually agreed upon. Care Teams Case Sealer Relationship Specialty Start Date End Date Jessica Taylor MD [address] [place] [address], [place] [phone] PCP - General Internal Medicine 12/04/21 documented as of this encounter
--- OUTSIDE RECORDS SUMMARY | 2023-03-04 02:51 | External Medical Summary | Summary of Care ---
Author Name Unknown Organization [facility] Address [address] [facility] [place] [address] Phone [phone] Care Team Providers Care Rejogger Name Role Phone Jessica Taylor MD Primary Care Provider [phone] Reason for Visit * Reason Comments Outpatient Testing Encounter Details Date Type Department Care Team Description 01/16/2023 Laboratory Laboratory, [place] [address] [place] [address] [place] [address] [place] [address] Type 2 diabetes mellitus with hemoglobin A1c goal of less than 7.0% (HCC); Chronic kidney disease, stage 3a (HCC); Dyslipidemia, goal to be determined; Typical atrial flutter (HCC); Body mass index (BMI) of 50.0 to 59.9 in adult (HCC); Non-ischemic cardiomyopathy (HCC); RCA occlusion ([facility]) Allergies Active Allergy Reactions Severity Noted Date Comments Atorvastatin Hives High 11/28/2021 Lisinopril Edema face/lips/tongue High 11/21/2019 documented as of this encounter (statuses as of 01/16/2023) Medications Medication Sig Dispensed Refills Start Date End Date Status Blood Glucose Monitoring Suppl (Sidekick GamesTOUCH ULTRA SYSTEM) W/DEVICE KITIndications:DM type 2, goal A1c below 7 Use as directed 4 times a day as needed for Hyperglycemia (high sugar) or Hypoglycemia (low sugar). Dx E11.9 1 Kit 0 05/23/2015 Active sellpointsUCH ULTRA BLUE STRP 0 07/13/2015 Active Cyanocobalamin (B-12) 1000 MCG Capsule Take 1 Capsule by mouth in the morning. 0 Active Cholecalciferol (VITAMIN D) 1000 units Tablet Take 1 Tablet by mouth in the morning. 0 Active Glucose Blood (ONETOUCH ULTRA BLUE) STRPIndications:Type 2 diabetes mellitus with hemoglobin A1c goal of less than 7.0% ([facility]) USE ONE STRIP TO CHECK GLUCOSE 4 TIMES DAILY DIRECTED NEEDED FOR HYPERGLYCEMIA (HIGH SUGAR) OR HYPOGLYCEMIA (LOW SUGAR) 100 Strip 04/25/2019 Active ONETOUCH DELICA LANCETS 33G [facility] USE ONE LANCET TO CHECK GLUCOSE 4 [...] Jessica Taylor MD [address] [place] [address] 02/05/2023 Imaging Radiology 03/25/2023 Cardiac Studies Cardiac Studies Pending Results Name Type Priority Associated Diagnoses Date /Time ALBUMIN / CREATININE RATIO, URINE Lab Routine Type 2 diabetes mellitus with hemoglobin A1c goal of less than 7.0% ([facility]) 01/16/2023 8:25 AM EDT HEMOGLOBIN A1C Lab Routine Type 2 diabetes mellitus with hemoglobin A1c goal of less than 7.0% ([facility]) 01/16/2023 8:25 AM EDT PHOSPHORUS Lab Routine Chronic kidney disease, stage 3a ([facility]) 01/16/2023 8:25 AM EDT LIPID PANEL WITH DIRECT LDL IF TG IS HIGH Lab Routine Dyslipidemia, goal to be determined 01/16/2023 8:25 AM EDT COMPREHENSIVE METABOLIC PANEL Lab Routine Type 2 diabetes mellitus with hemoglobin A1c goal of less than 7.0% ([facility]) Chronic kidney disease, stage 3a ([facility]) 01/16/2023 8:25 AM EDT CBC WITH WBC DIFFERENTIAL Lab Routine Type 2 diabetes mellitus with hemoglobin A1c goal of less than 7.0% ([facility]) Chronic kidney disease, stage 3a ([facility]) 01/16/2023 8:25 AM EDT TSH WITH FREE T4 IF INDICATED Lab Routine Type 2 diabetes mellitus with hemoglobin A1c goal of less than 7.0% ([facility]) Body mass index (BMI) of 50.0 to 59.9 in adult ([facility]) 01/16/2023 8:25 AM EDT CBC Lab Routine Type 2 diabetes mellitus with hemoglobin A1c goal of less than 7.0% ([facility]) Chronic kidney disease, stage 3a ([facility]) 01/16/2023 8:25 AM EDT DIFFERENTIAL, AUTOMATED Lab Routine Type 2 diabetes mellitus with hemoglobin A1c goal of less than 7.0% (HCC) Chronic kidney disease, stage 3a (HCC) 01/16/2023 8:25 AM EDT Health Maintenance Due Date Last Done Comments Hepatitis B (1 of 3 - 3-dose series) 1965 CKD PHOS USE SMARTSET 53538 07/17/1983 Hepatitis C Screening 07/17/1983 HPV/Co-Test 07/17/1995 [...] Screening 12/29/2020 12/30/2019 CKD HGB USE SMARTSET 90784 02/04/202202/04, 02/05/2017, 02/04/2017, Additional history exists HbA1c [...] and were consensually agreed upon. Care Teams Rejogger Relationship Specialty Start Date End Date Jessica Taylor MD [address] [place] [address] PCP - General Internal Medicine 12/04/21 documented as of this encounter
--- OUTSIDE RECORDS SUMMARY | 2023-03-04 02:51 | External Medical Summary | Summary of Care ---
Author Name Unknown Organization [facility] Address [address] [place] [address] Phone [phone] Care Team Providers Care Organ Recovery Coordinator Name Role Phone Jessica Taylor MD Primary Care Provider [phone] Reason for Visit * Reason Comments eRx-Medication Refill Encounter Details Date Type Department Care Team Description 12/21/[address] [facility] [address] [place] [address] Jessica Taylor MD [address] [place] [address] Type 2 diabetes mellitus with hemoglobin A1c goal of less than 7.0% ([facility]) Allergies Active Allergy Reactions Severity Noted Date Comments Atorvastatin Hives High 11/28/2021 Lisinopril Edema face/lips/tongue High 11/21/2019 documented as of this encounter (statuses as of 12/25/2022) Medications Medication Sig Dispensed Refills Start Date [...] 5 0 Active ONETOUCH DELICA LANCETS 33G MIS USE [...] 3 billion cell capsule. 0 2 Active Ozempic (0.25 or 0.5 MG/DOSE) 2 MG/1.5ML Solution Pen-injector (Semaglutide(0.25 or 0.5MG/DOS))Indicat ions:Type 2 diabetes mellitus with hemoglobin A1c goal of less than 7.0% (HCC),Uncontrolled type 2 diabetes mellitus with hyperglycemia (HCC) Inject under the skin 0.25 mg once a week . 1.5 mL 1 2 Active Amiodarone HCl 200 MG Oral [...] the morning. 30 Capsule 3 3 Active metFORMIN HCl 500 MG [...] MORE REFILLS 15 mL 0 3 Active Insulin Glargine-yfgn 100 UNIT/ML Subcutaneous Solution Pen-injector (Semglee (yfgn))Indications :Type 2 diabetes mellitus with hemoglobin A1c goal of less than 7.0% (HCC) Inject 50 Units under the skin at bedtime. Make appointment with physician for more refills. 15 mL 0 3 023 Discontinued documented as of this encounter (statuses as of 12/25/2022) Active Problems Problem Noted Date Chronic kidney [...] as of this encounter (statuses as of 12/25/2022) Resolved Problems Problem Noted Date Resolved Date [...] as of this encounter (statuses as of 12/25/2022) Immunizations Name Administration Dates Next Due COVID-19 [...] Telephone Encounter - Jessica Taylor MD - 12/25/2022 11:28 AM EDTSigned Prescriptions: Disp Refills Semglee (yfgn) 100 UNIT/ML Subcutaneous So*15 mL 0 Sig: INJECT 50 UNITS UNDER THE SKIN AT BEDTIME. MAKE APPOINTMENT FOR MORE REFILLS Authorizing Provider: JESSICA TAYLOR * Telephone Encounter - ERICK Norwood Tech - 12/24/2022 12:13 PM EDTPending Prescriptions: Disp Refills Semglee (yfgn) 100 UNIT/ML Subcutaneous So*15 mL 0 Sig: INJECT 50 UNITS UNDER THE SKIN AT BEDTIME. MAKE APPOINTMENT FOR MORE REFILLS * Telephone Encounter - ERICK Norwood - 12/24/2022 12:13 PM EDT Received message from [facility] regarding patient needing appointment. Placed call to patient to advise. Left message on voicemail to call back and schedule appointment. Thank you, Tiffanie Nunez [facility] Joint Terminal Attack Controller II [facility] ([facility]) (formerly Telepharmacy) 12/24/2022,12:13 PM * Telephone Encounter - Dc Hinojosa RP - 12/23/2022 12:51 PM EDTPending Prescriptions: Disp Refills Semglee (yfgn) 100 UNIT/ML Subcutaneous So*15 mL 0 Sig: INJECT 50 UNITS UNDER THE SKIN AT BEDTIME. MAKE APPOINTMENT FOR MORE REFILLS * Telephone Encounter - Dc Hinojosa RP - 12/23/2022 12:49 PM EDT Please contact patient so that an appointment can be scheduled with her PRIMARY CARE provider before this refill can be authorized. After contacting patient, please forward request to Jessica Taylor MD. Patient also due for fasting labs, ordered previously not yet completed. Last Visit: 12/31/2021 (in office), 04/30/2021 (telemedicine) Next Visit: Visit date not found Thanks, Dc Hinojosa [facility], Pharm D. Clinical Pharmacist Centralized Clinical Pharmacy Services (Formerly Telepharmacy)/[facility] [phone] 12/23/2022,12:51 PM documented in this encounter Plan of Treatment Health Maintenance Due Date Last Done Comments Hepatitis B (1 of 3 - 3-dose series) 1965 CKD PHOS USE SMARTSET 88534 07/17/1983 Hepatitis C Screening 07/17/1983 HPV/Co-Test 07/17/1995 [...] Over 12/29/2020 12/30/2019 CKD HGB USE SMARTSET 33797 02/04/202202/04, 02/05/2017, 02/04/2017, Additional history exists HbA1c [...] A1c goal of less than 7.0% (HCC) documented in this encounter Advance Directives Latest Code Status on File Code Status Date Activated Date Inactivated Comments Full Code 02/03/2017 2:42 PM 02/05/2017 5:26 PM Thi s order reflects the patients wishes and were consensually agreed upon. Care Teams Organ Recovery Coordinator Relationship Specialty Start Date End Date Jessica Taylor MD [address] [place] [address] PCP - General Internal Medicine 12/04/21 documented as of this encounter
--- OUTSIDE RECORDS SUMMARY | 2023-03-04 02:51 | External Medical Summary | Summary of Care ---
Author Name Unknown Organization [facility] Address [address] [place] [address] Phone [phone] Care Team Providers Care Hospital Cleaning Specialist Name Role Phone Jessica Taylor MD Primary Care Provider [phone] Reason for Visit * Reason Comments eRx-Medication Refill Encounter Details Date Type Department Care Team Description 12/20/2022 Refill [facility] [address] [place] [address] Jessica Taylor MD [address], [place] [id number] Allergies Active Allergy Reactions Severity Noted Date Comments Atorvastatin Hives High 11/28/2021 Lisinopril Edema face/lips/tongue High 11/21/2019 documented as of this encounter (statuses as of 12/22/2022) Medications Medication Sig Dispensed Refills Start Date [...] mg once a week . 1.5 mL 2 Active Amiodarone HCl 200 MG Oral Tablet (Cordarone)Indicat ions:Typical atrial flutter (HCC),Chronic systolic congestive heart failure (HCC),LBBB (left bundle branch block) TAKE 1 TABLET BY MOUTH ONCE DAILY IN THE MORNING 90 Tablet 3 Active Apixaban 5 MG Oral Tablet [...] AT BEDTIME 90 Tablet 0 3 Active amLODIPine Besylate 2.5 MG Oral Tablet (Norvasc) TAKE ONE TABLET BY MOUTH AT BEDTIME 30 Tablet 5 3 023 Discontinued documented as of this encounter (statuses as of 12/22/2022) Active Problems Problem Noted Date Chronic kidney [...] as of this encounter (statuses as of 12/22/2022) Resolved Problems Problem Noted Date Resolved Date [...] as of this encounter (statuses as of 12/22/2022) Immunizations Name Administration Dates Next Due COVID-19 [...] Telephone Encounter - Noel Martinez RP - 12/22/2022 9:59 AM EDTSigned Prescriptions: Disp Refills amLODIPine Besylate 2.5 MG Oral Tablet (No*90 Tab*0 Sig: TAKE ONE TABLET BY MOUTH AT BEDTIMEAuthorizing Provider: Mateusz TAYLOR User: NOEL MARTINEZ------- * Telephone Encounter - Noel Martinez RP - 12/22/2022 9:59 AM EDT Please contact patient so that an appointment can be scheduled with her PRIMARY CARE provider. Refill authorized to hold patient over in the mean time. Last Visit: 12/31/2021 (in office), 04/30/2021 (telemedicine) Next Visit: Visit date not found Noel Castillo, PharmD Clinical Pharmacist [facility] ([facility] - Formerly Telepharmacy) [phone] 12/22/2022 9:59 AM documented in this encounter Plan of Treatment Health Maintenance Due Date Last Done Comments Hepatitis B (1 of 3 - 3-dose series) 1965 CKD PHOS USE SMARTSET 32847 07/17/1983 Hepatitis C Screening 07/17/1983 HPV/Co-Test 07/17/1995 [...] Over 12/29/2020 12/30/2019 CKD HGB USE SMARTSET 89807 02/04/202202/04, 02/05/2017, 02/04/2017, Additional history exists HbA1c [...] and were consensually agreed upon. Care Teams Hospital Cleaning Specialist Relationship Specialty Start Date End Date Jessica Taylor MD [address] [place] [address] PCP - General Internal Medicine 12/04/21 documented as of this encounter
--- OUTSIDE RECORDS SUMMARY | 2023-03-04 02:51 | External Medical Summary | Summary of Care ---
Author Name Unknown Organization [facility] Address [address] [facility] [place] [address] Phone [phone] Care Team Providers Care Lozenge Maker Helper Name Role Phone Jessica Taylor MD Primary Care Provider [phone] Reason for Visit * Reason Onset Date Comments eRx-Medication Refill Left Message 12/13/2022 Encounter Details Date Type Department Care Team Description 12/13/2022 Refill [facility] [address] [place] [address] Jessica Taylor MD [address] [place] [address] Chronic systolic congestive heart failure (HCC); LBBB (left bundle branch block); Non-ischemic cardiomyopathy (HCC) Allergies Active Allergy Reactions Severity Noted Date Comments Atorvastatin Hives High 11/28/2021 Lisinopril Edema face/lips/tongue High 11/21/2019 documented as of this encounter (statuses as of 12/19/2022) Medications Medication Sig Dispensed Refills Start Date End Date Status Blood Glucose Monitoring Suppl (Kinkaa Search ToolsTOUCH ULTRA SYSTEM) W/DEVICE KITIndications:DM type 2, goal [...] as of this encounter (statuses as of 12/19/2022) Active Problems Problem Noted Date Chronic kidney [...] as of this encounter (statuses as of 12/19/2022) Resolved Problems Problem Noted Date Resolved Date [...] as of this encounter (statuses as of 12/19/2022) Immunizations Name Administration Dates Next Due COVID-19 [...] * Telephone Encounter - JUDY Goodman - 12/19/2022 10:43 AM EDT LMOM to schedule. Letter sent. 12/19/2022 * Telephone Encounter - JUDY Goodman - [...] 12/16/2022 8:59 AM EDT Received message from [facility] regarding patient needing appointment and labs. Placed call to patient toadvise. Left message on voicemail advising of required labs and to call back for an appointment. Thank you, Jasmin Connell CPhT Repairer Welding Systems And Equipment II Centralized Clinical Pharmacy Services ( Formerly Telepharmacy) 12/16/2022,8:59 AM * Telephone Encounter - Betty Galvez [facility] - 12/15/2022 7:49 AM EDTPending Prescriptions: Disp [...] contacting patient, please forward request to Jessica Tyalor MD. Thank You, Betty Galvez [facility] Clinical Pharmacist Central[facility] Clinical Pharmacy Services ([facility]) (formerly Telepharmacy) [phone] 12/15/2022, 7:48 AM documented in this encounter Plan of Treatment Health Maintenance Due Date Last Done Comments Hepatitis B (1 of 3 - 3-dose series) 1965 CKD PHOS USE SMARTSET 32382 07/17/1983 Hepatitis C Screening 07/17/1983 HPV/Co-Test 07/17/1995 [...] Over 12/29/2020 12/30/2019 CKD HGB USE SMARTSET 46302 02/04/202202/04, 02/05/2017, 02/04/2017, Additional history exists HbA1c [...] and were consensually agreed upon. Care Teams Lozenge Maker Helper Relationship Specialty Start Date End Date [facility] [address] [facility] [address] PCP - General Internal Medicine 12/04/21 documented as of this encounter
--- OUTSIDE RECORDS SUMMARY | 2023-03-04 02:51 | External Medical Summary | Summary of Care ---
Author Name Unknown Organization [facility] Address [address] [place] [address] Phone [phone] Care Team Providers Care Steel Burner Name Role Phone Jessica Taylor MD Primary Care Provider [phone] Reason for Visit * Reason Onset Date Comments Health Maintenance 12/31/2022 Encounter Details Date Type Department Care Team Description 12/31/2022 Telephone [facility] [address] [place] [address] Jessica Taylor MD [address] [place] [address] Health Maintenance Allergies Active Allergy Reactions Severity Noted Date Comments Atorvastatin Hives High 11/28/2021 Lisinopril Edema face/lips/tongue High 11/21/2019 documented as of this encounter (statuses as of 12/31/2022) Medications Medication Sig Dispensed Refills Start Date [...] Strip 04/25/2019 Active ONETOUCH DELICA LANCETS 33G MIS USE ONE LANCET TO CHECK GLUCOSE 4 TIMES DAILY 200 Each 04/25/2019 Active Losartan Potassium 25 MG Oral Tablet (Cozaar)Indications: Acute systolic (congestive) heart failure (HCC),Chronic systolic congestive heart failure (HCC),Typical atrial flutter (HCC) Take by mouth 1 Tablet in the morning. 30 Tablet 07/02/2021 Active Torsemide 20 MG Oral Tablet (Demadex)Indications :Acute systolic (congestive) heart failure (HCC),Chronic systolic congestive heart failure (HCC),Typical atrial flutter (HCC) Take 2 tablets in the morning and 1 tablet in the afternoon.. 90 Tablet 07/02/2021 Active Omeprazole 20 MG Oral Capsule Delayed Release (PriLOSEC) Take by mouth 1 Capsule in the morning. 1 hour before the first meal of the day. 30 Capsule 07/04/2021 Active Probiotic Daily Oral Capsule Take by mouth 1 Capsule in the morning. 3 billion cell capsule. 0 12/01/2021 Active Ozempic (0.25 or 0.5 MG/DOSE) 2 MG/1.5ML Solution Pen-injector (Semaglutide(0.25 or 0.5MG/DOS))Indicatio ns:Type 2 diabetes mellitus with hemoglobin A1c goal of less than 7.0% (HCC),Uncontrolled type 2 diabetes mellitus with hyperglycemia (HCC) Inject under the skin 0.25 mg once a week . 1.5 mL 12/31/2021 Active Amiodarone HCl 200 MG Oral Tablet (Cordarone)Indicatio ns:Typical atrial flutter (HCC),Chronic systolic congestive heart failure (HCC),LBBB (left bundle branch block) TAKE 1 TABLET BY MOUTH ONCE DAILY IN THE MORNING 90 Tablet 08/05/2022 Active Apixaban 5 MG Oral Tablet (Eliquis)Indications :Acute systolic (congestive) heart failure (HCC),Chronic systolic congestive heart failure (HCC),Typical atrial flutter (HCC) Take 1 Tablet by mouth in the morning and 1 Tablet before bedtime. 180 Tablet 08/28/2022 Active Tamsulosin HCl 0.4 MG Oral Capsule (Flomax) Take 1 Capsule by mouth in the morning. 30 Capsule 3 09/22/2022 Active metFORMIN HCl 500 MG Oral Tablet [...] A1c goal of less than 7.0% ([facility]) INJECT 50 UNITS UNDER THE SKIN AT BEDTIME. MAKE APPOINTMENT FOR MORE REFILLS 15 mL 0 12/25/2022 Active documented as of this encounter (statuses as of 12/31/2022) Active Problems Problem Noted Date Chronic kidney [...] as of this encounter (statuses as of 12/31/2022) Resolved Problems Problem Noted Date Resolved Date [...] as of this encounter (statuses as of 12/31/2022) Immunizations Name Administration Dates Next Due COVID-19 [...] encounter Miscellaneous Notes * Telephone Encounter - Page Zamorano LPN - 12/31/2022 10:59 AM EDT Care Gaps Comprehensive Care Outreach Last Office/Telemedicine Visit: 12/31/2021 (in office), 04/30/2021 (telemedicine) Next Office Visit: Visit date not found Hemoglobin AIC Results: Lab Results Component Value Date/Time HEMOGLOBIN A1C - [facility] 12.7 (H) 11/28/2021 07:45 AM HEMOGLOBIN A1C - [facility] 9.0 (H) 02/04/2021 04:31 PM HEMOGLOBIN A1C - [facility] 9.6 (H) 05/09/2019 08:28 AM HEMOGLOBIN A1C - [facility] 12.5 (H) 06/30/2018 01:14 PM HEMOGLOBIN A1C - [facility] 12.7 (H) 05/03/2018 09:22 AM Reviewed Health Maintenance below: Health Maintenance Topic Date Due Hepatitis B (1 of 3 - 3-dose series) Never done CKD PHOS USE SMARTSET 04329 Never done Hepatitis C Screening Never done Colorectal Cancer Screening Never done Pneumococcal Vaccine: Pediatrics (0 to 5 Years) and At-Risk Patients (6 to 64 Years) (2 - PCV) 09/15/2014 Zoster Vaccines (1 of 2) Never done Cervical Cancer Screening 05/21/2018 DIABETES-EYE EXAM 05/24/2019 DTaP,Tdap,and Td Vaccines (2 - Td or Tdap) 09/29/2019 Mammogram 06/09/2020 COVID-19 Vaccine (3 - Pfizer series) 11/19/2020 Depression Screening 12/29/2020 CKD HGB USE SMARTSET 19003 02/04/2022 HbA1c 05/31/2022 GFR 06/06/2022 Diabetic Foot Exam 09/05/2022 Albumin/Creatinine Ratio 11/28/2022 B-12 11/28/2022 Ov Labs Eye Mamm colon Care Gap Outreach Action Taken: Left message documented in this encounter Plan of Treatment Upcoming Encounters Date Type Specialty Care Team Description 01/16/2023 Office Visit Family Medicine Jessica Taylor MD [address] [place] [address] Health Maintenance Due Date Last Done Comments Hepatitis B (1 of 3 - 3-dose series) 1965 CKD PHOS USE SMARTSET 98999 07/17/1983 Hepatitis C Screening 07/17/1983 HPV/Co-Test 07/17/1995 [...] Screening 12/29/2020 12/30/2019 CKD HGB USE SMARTSET 38810 02/04/202202/04, 02/05/2017, 02/04/2017, Additional history exists HbA1c 05/31/2022 11/28/2021, 01/18, 05/09/2019, Additional history exists GFR 06/06/2022 12/04/2021, 11/18, 02/04/2021, Additional history exists Diabetic Foot Exam 09/05/2022 09/05/2021, 0 07/30/2020, 05/09/2019, Additional history exists Albumin/Creatinine Ratio 11/28/20222 022, 10/16/2017, 08/15/2016, Additional history exists B-12 [...] and were consensually agreed upon. Care Teams Steel Burner Relationship Specialty Start Date End Date Jessica Taylor MD [address] [place] [address] PCP - General Internal Medicine 12/04/21 documented as of this encounter
--- OUTSIDE RECORDS SUMMARY | 2023-03-04 02:51 | External Medical Summary | Summary of Care ---
Author Name Unknown Organization [facility] Address [address] [facility] [place] [address] Phone [phone] Care Team Providers Care Agronomy Teacher Name Role Phone Jessica Taylor MD Primary Care Provider [phone] Reason for Visit * Reason Onset Date Comments eRx-Medication Refill Left Message 12/13/2022 Encounter Details Date Type Department Care Team Description 12/13/2022 Refill [facility] [address] [place] [address] Jessica Taylor MD [address] [place] [address] Chronic systolic congestive heart failure (HCC); LBBB (left bundle branch block); Non-ischemic cardiomyopathy (HCC) Allergies Active Allergy Reactions Severity Noted Date Comments Atorvastatin Hives High 11/28/2021 Lisinopril Edema face/lips/tongue High 11/21/2019 documented as of this encounter (statuses as of 12/16/2022) Medications Medication Sig Dispensed Refills Start Date End Date Status Blood Glucose Monitoring Suppl (ParsoTOUCH ULTRA SYSTEM) W/DEVICE KITIndications:DM type 2, goal [...] as of this encounter (statuses as of 12/16/2022) Active Problems Problem Noted Date Chronic kidney [...] as of this encounter (statuses as of 12/16/2022) Resolved Problems Problem Noted Date Resolved Date [...] as of this encounter (statuses as of 12/16/2022) Immunizations Name Administration Dates Next Due COVID-19 mRNA, LNP-s, No Pre serve, 2-Dose Series (CanoP) 09/24/2020,09/03/2020 Pneumococcal Polysaccharide PPV23 (Pneumovax) TDAP (age [...] 12/16/2022 8:59 AM EDT Received message from [facility] regarding patient needing appointment and labs. Placed call to patient toadvise. Left message on voicemail advising of required labs and to call back for an appointment. Thank you, Jasmin Connell [facility] Mangle Roll Operator II [facility] ( [facility]) 12/16/2022,8:59 AM * Telephone Encounter - Betty Galvez [facility] - 12/15/2022 7:49 AM EDTPending Prescriptions: Disp Refills metFORMIN HCl 500 MG Oral Tablet (Glucopha*60 Tab*0 Sig: TAKE ONE TABLET BY MOUTH TWICE A DAY WITH MORNING AND EVENING MEALS * Telephone Encounter - Betty Galvez [facility] - 12/15/2022 7:48 AM EDT 2nd attempt [...] Jessica Taylor MD. Thank You, Betty Galvez [facility] Clinical Pharmacist [facility] ([facility]) ([facility]) [phone] 12/15/2022, 7:48 AM documented in this encounter Plan of Treatment Health Maintenance Due Date Last Done Comments Hepatitis B (1 of 3 - 3-dose series) 1965 CKD PHOS USE SMARTSET 70826 07/17/1983 Hepatitis C Screening 07/17/1983 HPV/Co-Test 07/17/1995 [...] Over 12/29/2020 12/30/2019 CKD HGB USE SMARTSET 75380 02/04/202202/04, 02/05/2017, 02/04/2017, Additional history exists HbA1c [...] and were consensually agreed upon. Care Teams Agronomy Teacher Relationship Specialty Start Date End Date Jessica Taylor [facility] [address] [facility] [id number] PCP - General Internal Medicine 12/04/21 documented as of this encounter
--- OUTSIDE RECORDS SUMMARY | 2023-03-04 02:51 | External Medical Summary | Summary of Care ---
Author Name Unknown Organization [facility] Address [address] [facility] [place] [address] Phone [phone] Care Team Providers Care Toaster Operator Name Role Phone Jessica Taylor MD Primary Care Provider [phone] Reason for Visit * Reason Comments eRx-Medication Refill Encounter Details Date Type Department Care Team Description 12/20/2022 Refill [facility] [address] [place] [address] Jessica Taylor MD [address], [place] [id number] Chronic systolic congestive heart failure (HCC); LBBB (left bundle branch block); Non-ischemic cardiomyopathy (HCC) Allergies Active Allergy Reactions Severity Noted Date Comments Atorvastatin Hives High 11/28/2021 Lisinopril Edema face/lips/tongue High 11/21/2019 documented as of this encounter (statuses as of 12/23/2022) Medications Medication Sig Dispensed Refills Start Date [...] 5 0 Active ONETOUCH DELICA LANCETS 33G [facility] USE ONE LANCET TO CHECK GLUCOSE 4 [...] morning. 30 Tablet 11 2 023 Discontinued amLODIPine Besylate 2.5 MG Oral Tablet (Norvasc) TAKE ONE TABLET BY MOUTH AT BEDTIME 30 Tablet 5 3 023 Discontinued documented as of this encounter (statuses as of 12/23/2022) Active Problems Problem Noted Date Chronic kidney [...] as of this encounter (statuses as of 12/23/2022) Resolved Problems Problem Noted Date Resolved Date [...] as of this encounter (statuses as of 12/23/2022) Immunizations Name Administration Dates Next Due COVID-19 [...] Telephone Encounter - Jessica Taylor MD - 12/23/2022 9:51 AM EDTSigned Prescriptions: Disp Refills Furosemide 40 MG Oral Tablet (Lasix) 30 Tab*0 Sig: TAKE ONE TABLET BY MOUTH EVERY MORNING Authorizing Provider: JESSICA TAYLOR * Telephone Encounter - Jessica Taylor MD - 12/23/2022 9:51 AM EDT Only one mo refill on her med, please schedule for routine check up * Telephone Encounter - Eduarda Martinez, [facility] - 12/22/2022 9:58 AM EDTPending Prescriptions: Disp Refills Furosemide 40 MG Oral Tablet [Pharmacy Med*30 Tab*11 Sig: TAKE ONE TABLET BY MOUTH EVERY MORNING * Telephone Encounter - Eduarda Martinez [facility] - 12/22/2022 9:57 AM EDT Unable to authorize medication refills at this time. Part of the criteria used for refill authorization was not satisfied. Patient needs current well office visit and labs. Many recent attempts made to contact pt. Please approve if appropriate. Pending Prescriptions: Disp Refills Furosemide 40 MG Oral Tablet (Lasix) [Pha*30 Tab*11 Sig: TAKE ONE TABLET BY MOUTH EVERY MORNING Last Visit: 12/31/2021 (in office), 04/30/2021 (telemedicine) Next Visit: Visit date not found If no future appointments scheduled, and last appointment is greater than a year ago, please schedule patient for a follow-up appointment Last date the medication was ordered: 12/05/21 Is this request for a controlled substance?No [...] 3-dose series) 1965 CKD PHOS USE SMARTSET 50598 07/17/1983 Hepatitis C Screening 07/17/1983 HPV/Co-Test 07/17/1995 [...] Over 12/29/2020 12/30/2019 CKD HGB USE SMARTSET 00673 02/04/202202/04, 02/05/2017, 02/04/2017, Additional history exists HbA1c [...] and were consensually agreed upon. Care Teams Toaster Operator Relationship Specialty Start Date End Date Jessica Taylor MD [address] [facility] [id number] PCP - General Internal Medicine 12/04/21 documented as of this encounter
--- OUTSIDE RECORDS SUMMARY | 2023-03-04 02:51 | External Medical Summary ---
Author Name Unknown Address Unknown Organization K01:[facility] [place] [id number] Laboratory Report Ordering Provider Test Date Status ROWENA SOFIA 01/16/2023 08:25:51 Final Observation Date Value Abnormality Reference (Units ) Status SYNC LEUKOCYTES IN BLOOD BY AUTOMATED COUNT 01/16/2023 08:25:51 8.92 4.00-10.80 (K/uL) Final Segs 01/16/2023 08:25:51 64.4 40.0-75.0 (%) Final Lymphs % 01/16/2023 08:25:51 23.5 18.0-42.0 (%) Final Monos 01/16/2023 08:25:51 8.1 1.0-11.0 (%) Final Eosinophils 01/16/2023 08:25:51 2.4 0.0-6.0 (%) Final Basos 01/16/2023 08:25:51 0.7 0.0-2.0 (%) Final Immature Granulocyte, Percent 01/16/2023 08:25:51 0.9 0.0-2.0 (%) Final Absolute Segs 01/16/2023 08:25:51 5.75 1.80-7.70 (K/uL) Final Lymphs, absolute 01/16/2023 08:25:51 2.10 1.00-4.80 (K/ul) Final Monos, Abs 01/16/2023 08:25:51 0.72 0.00-1.10 (K/uL) Final Eos, Abs 01/16/2023 08:25:51 0.21 0.00-0.70 (K/uL) Final Basos, Abs 01/16/2023 08:25:51 0.06 0.00-0.20 (K/uL) Final Immature Granulocytes, Number 01/16/2023 08:25:51 0.08 0.00-0.20 (K/uL) Final Performing Location LAB[facility]ATORY [facility] - [address] [facility] [id number]
--- OUTSIDE RECORDS SUMMARY | 2023-03-04 02:51 | External Medical Summary | Summary of Care ---
Author Name Unknown Organization [facility] Address [address] [facility] [facility] [address] Phone [phone] Care Team Providers Care Grocery Store Clerk Name Role Phone Jessica Taylor MD Primary Care Provider [phone] Reason for Visit * Reason Comments eRx-Medication Refill Encounter Details Date Type Department Care Team Description 11/19/2022 Refill [facility] [address] [place] [address] Jessica Taylor MD [address] [place] [address] Type 2 diabetes mellitus with hemoglobin A1c goal of less than 7.0% ([facility])* Allergies Active Allergy Reactions Severity Noted Date Comments Atorvastatin Hives High 11/28/2021 Lisinopril Edema face/lips/tongue High 11/21/2019 documented as of this encounter (statuses as of 11/19/2022) Medications Medication Sig Dispensed Refills Start Date [...] Strip 0 Active ONETOUCH DELICA LANCETS 33G [facility] [place] ONE [place]ANCET TO [...] more refills. 15 mL 0 3 Active Insulin Glargine-yfgn 100 UNIT/ML Subcutaneous Solution Pen-injector (Semglee (yfgn)) Inject 50 Units under the skin at bedtime. 15 mL 0 3 023 Discontinued documented as of this encounter (statuses as of 11/19/2022) Active Problems Problem Noted Date Chronic kidney [...] as of this encounter (statuses as of 11/19/2022) Resolved Problems Problem Noted Date Resolved Date [...] as of this encounter (statuses as of 11/19/2022) Immunizations Name Administration Dates Next Due COVID-19 [...] encounter Miscellaneous Notes * Telephone Encounter - Rubin Reyes RP - 11/19/2022 3:57 PM EDTSigned Prescriptions: Disp Refills Insulin Glargine-yfgn 100 UNIT/ML Subcutan*15 mL 0 Sig: Inject 50 Units under the skin at bedtime. Make appointment with physician for more refills.Authorizing Provider: Mateusz TAYLOR User: RUBIN LLOYD V * Telephone Encounter - Rubin Lloyd V [facility] - 11/19/2022 3:52 PM EDT Did you pend patient's preferred pharmacy and medication before forwarding?no Pharmacy: [facility] [id number] Pending Prescriptions: Disp Refills Semglee (yfgn) 100 UNIT/ML Subcutaneous S*15 mL 0 Sig: INJECT 50 UNITS UNDER THE SKIN AT BEDTIME Last Visit: 12/31/2021 (in office), 04/30/2021 (telemedicine) Next Visit: Visit date not found If no future appointments scheduled, and last appointment is greater than a year ago, please schedule patient for a follow-up appointment Last date the medication was ordered: 10/23/22 Is this request for a controlled substance?No [...] AM HGBA1C 9.6 (H) 05/09/2019 08:28 AM Rubin Lloyd RPh, CACP, CDE Clinical Pharmacist [facility] 11/19/2022, 3:52 PM documented in this encounter Plan of Treatment Health Maintenance Due Date Last Done Comments Hepatitis B (1 of 3 - 3-dose series) 1965 CKD PHOS USE SMARTSET 81917 07/17/1983 Hepatitis C Screening 07/17/1983 HPV/Co-Test 07/17/1995 [...] Over 12/29/2020 12/30/2019 CKD HGB USE SMARTSET 29355 02/04/202202/04, 02/05/2017, 02/04/2017, Additional history exists HbA1c [...] goal of less than 7.0% (HCC)- Primary documented in this encounter Advance Directives Latest Code Status on File Code Status Date Activated Date Inactivated Comments Full Code 02/03/2017 2:42 PM 02/05/2017 5:26 PM Thi s order reflects the patients wishes and were consensually agreed upon. Care Teams Grocery Store Clerk Relationship Specialty Start Date End Date Jessica Taylor MD [address] [place] [phone] PCP - General Internal Medicine 12/04/21 documented as of this encounter
--- OUTSIDE RECORDS SUMMARY | 2023-03-04 02:51 | External Medical Summary ---
Author Name Unknown Address Unknown Organization K01:LABORATORY [facility] - [address] [place] [address] Laboratory Report Ordering Provider Test Date Status ODALIS BRO 01/16/2023 08:25:51 Final Observation Date Value Abnormality Reference (Units ) Status Triglyceride 01/16/2023 08:25:51 221 Above high normal <=174 (mg/dL) Final Triglyceride Reference Range s (mg/dL):
<150 Acceptable
150-174 Borderline high
175-499 High
>=500 Very high Cholesterol 01/16/2023 08:25:51 274 Above high normal <200 (mg/dL) Final Total Cholesterol Reference Ranges (mg/dL):
<200 Desirable
200-239 Borderline high
>=240 High HDL 01/16/2023 08:25:51 63 >49 (mg/dL ) Final HDL Cholesterol Reference Ra nges (mg/dL):
>=60 High (Desirable)
<50 Low (Undesirable) For Females
<40 Low (Undesirable) For Males NON-HDL CHOLESTEROL 01/16/2023 08:25:51 211 Above high normal <=159 (mg/dL) Final Non-HDL Cholesterol Referenc e Range (mg/dL):
<100 Target level for high risk ASCVD patient
<130 Optimal for general population
130-159 Near optimal for general population
160-189 Borderline High
190-219 High
>=220 Very High LDL, (calculated) 01/16/2023 08:25:51 167 Above high n ormal <=129 (mg/dL) Final LDL Cholesterol Reference Ra nges (mg/dL):
<70 Target level for high risk ASCVD patient
<100 Optimal for general population
100-129 Near optimal for general population
130-159 Borderline high
160-189 High
>=190 Very high Performing Location LABORATORY [facility] - [address] [facility] [id number]
[2023-03-04 06:44] LABS: Basophils # (auto) 0.06 K/uL (0.00-0.20); Basophils % (auto) 0.8 %; Eosinophils # (auto) 0.13 K/uL (0.00-0.50); Eosinophils % (auto) 1.7 %; Hematocrit (blood only) 38.9 % (37.0-47.0); Hemoglobin 13.2 g/dl (12.0-16.0); Immature Granulocytes # (auto) 0.03 K/uL (0.01-0.20); Immature Granulocytes % (auto) 0.4 %; Lymphocytes # (auto) 2.02 K/uL (1.20-3.40); Lymphocytes % (auto) 26.9 %; Mean Corpuscular Hemoglobin 29.5 pg (25.0-34.0); Mean Corpuscular Hgb Conc 33.9 g/dL (32.0-36.0); Mean Corpuscular Volume 86.8 fL (80.0-100.0); Mean Platelet Volume 11.5 fL (9.4-12.4); Monocytes # (auto) 0.64 K/uL (0.11-0.59); Monocytes % (auto) 8.5 %; Neutrophils # (auto) 4.63 K/uL (1.40-6.50); Neutrophils % (auto) 61.7 %; Platelet Count 206 K/uL (130-400); RDW Coefficient of Variation 12.6 % (11.5-14.5); RDW Standard Deviation 39.9 fL (36.4-46.3); Red Blood Count 4.48 M/uL (4.20-5.40); White Blood Count 7.51 K/ul (4.8-10.8)
[2023-03-04 06:58] LABS: Albumin Level 3.7 gm/dl (3.4-5.0); Bilirubin,Total 0.5 mg/dl (0.2-1.0); Calcium 8.9 mg/dl (8.6-10.3); Magnesium 1.7 mg/dl (1.7-2.4); Potassium 3.4 mmol/L (3.5-5.1)
[2023-03-04 07:05] LABS: Total Protein 6.5 gm/dl (6.0-8.3)
[2023-03-04 07:06] LABS: Albumin Globulin Ratio 1.3 (0.9-2); BUN Creatinine Ratio 19.4 (10-20); Creatinine Clr Calc Pharmacy 65.4 ml/min; Est GFR (African American) 53.2 ml/min; Est GFR (Non-African American) 45.9 ml/min; Globulin 2.8 gm/dl (2.5-4.0); Phosphorus 3.4 mg/dl (2.5-4.9)
[2023-03-04] MEDS ORDERED: POTASSIUM CHLORIDE CRTAB 20 MEQ TABCR PO STA (08:31)
[2023-03-04] MEDS ORDERED: FUROSEMIDE 40 MG TAB PO SCH (09:00)
[2023-03-04] MEDS: INSULIN ASPART PER UNIT CHARGE SC SCH ×2 (09:20→13:09)
[2023-03-04] MEDS: LANTUS PER UNIT CHARGE SQ SCH (09:20)
[2023-03-04] MEDS: AMIODARONE 200 MG TAB PO SCH (09:21)
[2023-03-04] MEDS: APIXABAN 5 MG TABLET PO SCH (09:21)
[2023-03-04] MEDS: PHENAZOPYRIDINE HCL 200 MG TAB PO SCH (09:21)
[2023-03-04] MEDS: METOPROLOL SUCC 50MG EXT REL TAB PO SCH (09:21)
[2023-03-04] MEDS: LOSARTAN POTASSIUM 50 MG TAB PO SCH (09:22)
[2023-03-04] MEDS: CALCIUM CITRATE 950 MG TAB PO SCH ×2 (11:09→13:10)
--- NOTE | 2023-03-04 12:11 | Discharge Summary ---
Discharge Summary Date of Service March 04, 2023 Notes For Next Care Provider Cr improved but still slightly elevated at 1.29 on discharge. Please repeat within the next week after discharge for continued monitoring. Medication Changes From Visit None Admission HPI Per Admitting Provider This is a 57 y/o female with a PMH of recurrent nephrolithiasis, atrial flutter, dilated cardiomyopathy with severe LV dysfunction (EF ~20%), insulin-requiring DM, HTN, GERD, and dyslipidemia who presents to the ED today with right flank pain and hematuria. Pt reports that she was in her usual state of health yesterday. Around 2 am last night, she had the sudden onset of right flank pain which is radiating to her right lower quadrant and right groin at times. She describes the pain as constant but states that it waxes and wanes in intensity. She has associated nausea and has vomited three times at home, once in the ED. Some relief with the Zofran given. Pain partially relieved by the morphine given in the ED but still present. She also notes gross hematuria since the pain started, which has continued here in the ED. She notes urinary frequency but denies dysuria or difficulty urinating. She reports a prior history of kidney stones and has been trying to get into urology as an outpatient (she missed her last appt due to car trouble, previously followed with Dr. Henao). She reports multiple urology interventions previously including lithotripsy and stent placement but last stone requiring intervention was at least a couple of years ago. She denies fevers or chills but may have sweats with the pain. Last dose of Eliquis, which she is on for atrial flutter, was last night. Missed all of her morning medications today including BP meds. Took her glargine insulin last night. Denies chest pain, palpitations, dyspnea, SHEPHERD, or dizziness. Principal Dx & Hospital Course #1 = Principal Diagnosis (1) Ureteral stone with hydronephrosis: (2) Uncontrolled diabetes mellitus with hyperglycemia: (3) Hypertensive urgency: (4) Hypokalemia: Oral repletion ordered. (5) Atrial flutter: (6) Chronic systolic heart failure: (7) Morbid obesity: Plan 57 y/o female with a PMH of recurrent nephrolithiasis, atrial flutter, dilated cardiomyopathy with severe LV dysfunction (EF ~20%), insulin-requiring DM, HTN, GERD, and dyslipidemia admitted with right flank pain and hematuria. Obstructive uretal stone with hydronephrosis CT abd pelvis with noted obstructed uretal stone with hydronephrosis and hydroureter Urology consulted -s/p R stent placement on 03/02 -urine aspirate Cx pending -resume home anticoagulation- Eliquis resumed Acute on chronic kidney disease Cr elevated today, was wnl on admission Noted elevation in the past Given CHF Hx will defer on fluids at this time Holding home lasix (restart in AM for CHF below), currently on home ARB in setting of hypertensive urgency previously Continue to monitor renal function HTN Continue amlodipine, losartan and metoprolol Atrial flutter On metoprolol, amiodarone and Eliquis Continue DMII Holding home medications Basal/bolus CHF Last echo with EF ~25% Follows with cardiology restart home Lasix in AM Diet: DMII DVT prophylaxis: Eliquis Dispo: Home once Cx results are back Discharge Exam General: Alert, oriented. No acute distress Skin: No noted rashes or bruises Psych: Appropriate mood and affect Neuro: No gross deficits HEENT: NC/AT Chest: Nontender to palpation. CV: RRR, Normal s1, s2. No murmurs appreciated Resp: Breath sounds clear bilaterally, no increased effort of breathing. Abdomen: BS+. Soft, tender in left lower quadrant, nondistended. No guarding. No organomegaly appreciated. Extremities: some edema in lower extremities bilaterally. Updated Medication List Medication Instructions Recorded Confirmed Type cholecalciferol (vitamin D3) 25 25 mcg PO QAM 07/17/20 03/02/23 History mcg (1,000 unit) capsule cyanocobalamin (vitamin B-12) 1,000 mcg PO QAM 07/17/20 03/02/23 History 1,000 mcg tablet omeprazole magnesium 20 mg 20 mg PO QAM 07/17/20 03/02/23 History tablet,delayed release (Prilosec OTC) apixaban 5 mg tablet (Eliquis) 5 mg PO BID 30 days #60 tabs 07/22/20 03/02/23 Rx amiodarone 200 mg tablet 200 mg PO QAM #30 tabs 09/01/20 03/02/23 Rx metoprolol succinate 50 mg 50 mg PO QAM #30 tabs 09/01/20 03/02/23 Rx tablet,extended release 24 hr insulin glargine-yfgn 100 unit/mL 50 unit (0.5 mL) subcut HS #15 mL 12/01/21 03/02/23 Rx (3 mL) subcutaneous pen (Semglee (insulin glargine-yfgn) Pen) amlodipine 2.5 mg tablet 2.5 mg PO HS 07/11/22 03/02/23 History furosemide 40 mg tablet 40 mg PO QAM 07/11/22 03/02/23 History metformin 500 mg tablet 500 mg PO BIDM 07/11/22 03/02/23 History oxycodone 5 mg tablet 5 mg PO Q6H PRN pain #15 tabs 07/11/22 03/02/23 Rx losartan 50 mg tablet 50 mg PO DAILY 03/02/23 03/02/23 History semaglutide 1 mg/dose (4 mg/3 mL) 0.5 mg subcut WK 03/02/23 03/02/23 History subcutaneous pen injector (Ozempic) Hospital Stay Data Consultations 03/02/23 12:01 ED Decision to Admit Stat 03/02/23 12:39 Consult Urology Routine Procedures Performed Operation Date: 03/02/23 12:00 Actual Procedures p Cystoscopy, Right Retrograde Pyelogram,Aspiration of urine from Right Kidney, and Right Stent Placement(Right) - Win Jiang, Diagnostic Imagining Performed 03/02/23 FL retrograde includes kub Routine 03/02/23 07:54 CT abd pelvis wo con Stat Discharge Instructions Given to Patient (Per Discharging Provider) Ms Siddiqui, You had a kidney stone that was blocking your urinary tract. You had a procedure done by urology where a stent was placed to help with that, and your symptoms improved. You had testing done that did not show an infection up to this point. Should the culture grow any bacteria we will contact you with further instructions. It is okay to resume all your home medications. You noted no pain on the day of discharge but should you develop any pain after discharge, please take some over the counter tylenol or ibuprofen to help. We recommend keeping close follow up with your primary care provider and your urologist after discharge. You will need to check your kidney function within the next week after discharge which your primary care provider can keep an eye on. Urology will contact you to schedule follow up. It was a pleasure taking care of you during your time here.
--- OUTSIDE RECORDS SUMMARY | 2023-03-04 23:36 | External Medical Summary | Summary of Care ---
Author Name Unknown Organization [facility] Address [address] [facility] [place] [place] [address] Phone [phone] Care Team Providers Care Energy Trader Name Role Phone Jessica Taylor MD Primary Care Provider [phone] Reason for Visit * Reason Comments eRx-Medication Refill Encounter Details Date Type Department Care Team (Late st Contact Info) Description 03/01/2023 Refill [facility] [address] [place] [address] Jessica Taylor MD [address] [place] [address] Chronic systolic congestive heart failure (HCC); LBBB (left bundle branch block); Non-ischemic cardiomyopathy (HCC) Allergies Active Allergy Reactions Criticality Noted Date Comments Atorvastatin Hives High 11/28/2021 Lisinopril Edema face/lips/tongue High 11/21/2019 documented as of this encounter (statuses as of 03/02/2023) Medications Medication Sig Dispensed Refills Start Date [...] 0 Active ONETOUCH DELICA LANCETS 33G [facility] [place] USE ONE LANCET TO [...] a week. 3 Each 1 3 Active Furosemide 40 MG Oral Tablet (Lasix)Indications :Chronic systolic congestive heart failure (HCC),LBBB (left bundle branch block),Non-ischemi c cardiomyopathy (HCC) TAKE ONE TABLET BY MOUTH EVERY MORNING 30 Tablet 2 3 Active Furosemide 40 MG Oral Tablet (Lasix)Indications :Chronic systolic congestive heart failure (HCC),LBBB (left bundle branch block),Non-ischemi c cardiomyopathy (HCC) TAKE ONE TABLET BY MOUTH EVERY MORNING 30 Tablet 0 3 023 Discontinued documented as of this encounter (statuses as of 03/02/2023) Active Problems Problem Noted Date Diagnosed Date [...] as of this encounter (statuses as of 03/02/2023) Resolved Problems Problem Noted Date Diagnosed Date [...] as of this encounter (statuses as of 03/02/2023) Immunizations Name Administration Dates Next Due COVID-19 [...] Notes * Telephone Encounter - Noel Martinez [facility] - 03/02/2023 12:24 PM ESTSigned Prescriptions: Disp Refills Furosemide 40 MG Oral Tablet (Lasix) 30 Tab*2 Sig: TAKE ONE TABLET BY MOUTH EVERY MORNINGAuthorizing Provider: Mateusz TAYLOR User: NOEL MARTINEZ documented in this encounter Plan of Treatment Upcoming Encounters Date Type Department Care Team (Late st Contact Info) Description 03/25/2023 7:15 AM EST Cardiac Studies Cardiac Studies, [address] [address] Health Maintenance Due Date Last Done [...] Additional history exists CKD HGB USE SMARTSET 09703 01/17/202401/16, 01/16/2023, 02/04/2021, Additional history exists CKD PHOS USE SMARTSET 68415 01/17/2024 01/16/2023 Mammogram 02/06/2024 02/05/2023, 05/22, 11/12/2017, [...] and were consensually agreed upon. Care Teams Energy Trader Relationship Specialty Start Date End Date Jessica Taylor MD [address] [place] [id number] PCP - General Internal Medicine 12/04/21 documented as of this encounter
== END 2023-03-04 16:14 | disposition home or self-care (01) | DRG 660 ==
LOC: ED 07:34 → 2N 12:34 → SUATTDRO 12:34 → 2N 15:39

== ENCOUNTER 2023-04-16 06:20 | Observation (INO) ==
--- NOTE | 2023-04-15 08:35 | Anesthesiology Consultation ---
Date of Service April 15, 2023 Assessment & Plan (1) Encounter for pre-operative examination: Plan - check BSG am DOS. - EF 15-20%. Patient overdue to follow-up with cardiology and complete advised repeat echocardiogram to review of [facility] EMR. Case discussed in detail with Dr. Alvarado who advised patient was acceptable to proceed for current planned Cystoscopy, Ureteronephroscopy, Retrograde Pyelogram, with Possible Ureteral Dilation, Laser Destruction or Extraction of the Stone, Insertion or Exchange of Stent Catheter - Right if planned to be under sedation. Dr. Jiang advised per Arlette with his office that the plan is for sedation but he defers plan to anesthesia. Dr. Alvarado advised patient is acceptable to proceed as scheduled for planned surgery. He advised continuity of care document to PCP and cardiology that patient will need clearance prior to general anesthesia if needed in future at [facility]. Continuity of care document needs faxed to [facility] PCP and cardiology. - Ozempic instructions: Patient informed by PAT RN to stop 7 days prior to surgery. - Per him specialist on 04/14/2023: No known infectious disease contacts, current infectious disease symptoms in past 10 days or COVID positive test result in the past 30 days. Chart Review Chart Review: Acceptable Risk for Surgery and Patient NOT seen in Pre Admission Testing History Surgery Operation Date: 04/16/23 08:10 Proposed Procedures p Cystoscopy, Ureteronephroscopy, Retrograde Pyelogram, with Possible Ureteral Dilation, Laser Destruction or Extraction of the Stone, Insertion or Exchange of the Stent Catheter - Bilateral - Win Jiang, DO Height/Weight Height: 5 ft 4 in Weight: 136.078 kg Allergies Allergy/AdvReac Type Severity Reaction Status Date / Time lisinopril Allergy Severe Anaphylaxis Verified 04/14/23 10:17 atorvastatin Allergy Intermediate Hives - Verified 04/14/23 10:17 itchy Medications Home Medications Medication Instructions Recorded Confirmed Last Taken cholecalciferol (vitamin D3) 25 25 mcg PO QAM 07/17/20 04/14/23 03/18/23 09:00 mcg (1,000 unit) capsule cyanocobalamin (vitamin B-12) 1,000 mcg PO QAM 07/17/20 04/14/23 03/18/23 09:00 1,000 mcg tablet omeprazole magnesium 20 mg 20 mg PO QAM 07/17/20 04/14/2323 09:00 tablet,delayed release (Prilosec OTC) apixaban 5 mg tablet (Eliquis) 5 mg PO BID 30 days #60 tabs 07/22/20 04/14/23 03/17/23 20:30 amiodarone 200 mg tablet 200 mg PO QAM #30 tabs 09/01/20 04/14/23 03/18/23 09:00 metoprolol succinate 50 mg 50 mg PO QAM #30 tabs 09/01/20 04/14/23 03/18/23 09:00 tablet,extended release 24 hr insulin glargine-yfgn 100 unit/mL 50 unit (0.5 mL) subcut HS #15 mL 12/01/21 04/14/23 03/18/23 21:30 (3 mL) subcutaneous pen (Semglee (insulin glargine-yfgn) Pen) amlodipine 2.5 mg tablet 2.5 mg PO HS 07/11/22 04/14/23 03/18/23 20:30 furosemide 40 mg tablet 40 mg PO QAM 07/11/22 04/14/23 03/18/23 09:00 metformin 500 mg tablet 500 mg PO BID 07/11/22 04/14/23 03/18/23 20:30 oxycodone 5 mg tablet 5 mg PO Q6H PRN pain #15 tabs 07/11/22 04/14/23 03/01/23 losartan 50 mg tablet 50 mg PO QAM 03/02/23 04/14/23 03/18/23 09:00 semaglutide 1 mg/dose (4 mg/3 mL) 0.5 mg subcut Q7D 03/02/23 04/14/23 03/08/23 subcutaneous pen injector (Ozempic) oxycodone-acetaminophen 7.5 mg-325 1 tab PO Q8H PRN pain #7 tabs 03/19/23 04/14/23 Unknown mg tablet (Percocet) phenazopyridine 200 mg tablet 200 mg PO Q8H PRN pain #10 tabs 03/19/23 04/14/23 Unknown (Pyridium) tamsulosin 0.4 mg capsule 0.4 mg PO HS #30 caps 03/19/23 04/14/23 Unknown Past Medical History Medical History (Updated 04/15/23 @ 10:05 by Radha Milian PA-C) Cardiomyopathy nonischemic per last [facility] cardio note 04/2021 History of cardioversion x2, [facility] Asthma in remission CKD (chronic kidney disease) stage 3, GFR 30-59 ml/min RCA occlusion pt unsure?-entered 03/02/23 by hospitalist [place]; not noted in 04/2021 [facility] cardio note Chronic systolic heart failure Atrial flutter f/u dr. quigley [facility] Severe left ventricular systolic dysfunction last evaluation of EF to chart review, echo 06/2020: EF 45-49% on 08/16/20 echo LBBB (left bundle branch block) f/u dr. quigley [place] Morbid obesity Spinal stenosis Kidney stones GERD (gastroesophageal reflux disease) Diabetes mellitus, type 2 IDDM, injectable, and oral meds Hyperlipidemia Hypertension Past Family History Family History Mother Pancreatic cancer Diabetes Bilateral kidney stones Sister Bilateral kidney stones Hypertension Father Heart disease Brother Bilateral kidney stones Other No family history of adverse response to anesthesia Past Surgical History Surgical History History of nephrolithotomy with removal of calculi History of cholecystectomy History of tonsillectomy History of section x2 Hx of cystoscopy with stone extraction Status post cystoscopy with ureteral stent placement most recent 03/02/23 [facility] Social History Smoking Status: Never smoker Do You Dip or Chew Tobacco: No Hx Alcohol Use: No Hx Substance Use: No substance use type: does not use Last Used Substance Other:: remote hx-"tried" marijuana in her teens Lab Results Anesthesia Preop Results Results Anesthesia Widget: WBC 9.85 K/ul (4.8-10.8) 04/14/23 Hgb 14.0 g/dl (12.0-16.0) 04/14/23 Hct 42.0 % (37.0-47.0) 04/14/23 Plt 286 K/uL (130-400) 04/14/23 Na 142 mmol/L (136-145) 04/14/23 K 4.0 mmol/L (3.5-5.1) 04/14/23 Cl 101 mmol/L (98-107) 04/14/23 CO2 29 mmol/L (21-32) 04/14/23 BUN 15 mg/dl (6-23) 04/14/23 Creat 1.19 mg/dl (0.6-1.2) 04/14/23 Glucose Level 182 mg/dl (70-99(Fasting)) H 04/14/23 POC Glucose 201 mg/dl (70-99) H 03/19/23 PT 11.4 Seconds (9.0-12.0) 03/02/23 PTT 26.9 Seconds (21.0-31.0) 03/02/23 INR 1.0 (0.9-1.1) 03/02/23 HA1c 8.9 % (4.5-5.6) H 03/03/23 Urine Color Red 03/02/23 Urine Appearance Cloudy (Clear) A 03/02/23 Urine pH 7.0 (4.5-7.5) 03/02/23 Urine Specific [place] 1.025 (1.000-1.030) 03/02/23 Urine Protein 3+ (Negative) H 03/02/23 Urine Glucose (UA) 2+ (Negative) H 03/02/23 Urine Ketones 2+ (Negative) H 03/02/23 Urine Blood 3+ (Negative) H 03/02/23 Urine Nitrite Negative (Negative) 03/02/23 Urine Bilirubin Negative (Negative) 03/02/23 Urine Urobilinogen Negative (Negative) 03/02/23 Urine Leukocyte Esterase Negative (Negative) 03/02/23 Urine WBC (Auto) 0 /hpf (0-5) 03/02/23 Urine RBC (Auto) >30 /hpf (0-4) H 03/02/23 Urine Hyaline Casts (Auto) 0 /lpf (0-5) 03/02/23 Urine Epithelial Cells (Auto) 0-5 /lpf (0-5) 03/02/23 Urine Bacteria (Auto) Negative (Negative) 03/02/23 Testing Electrocardiogram Date: 03/02/23 NSR, rate 81 bpm LA enlargement Left axis deviation LBBB No significant change vs 11/28/21 EKG Chest X-Ray Date: 03/02/23 *1view* No acute chest disease Echocardiogram Date: 08/16/20 EF 45-49% Septal motion is abnormal consistent with LBBB Borderline hypokinetic remaining LV wall segments Grade I diastolic dysfunction Aortic root and proximal ascending aorta borderline enlarged Other Testing Abdomen pelvis CT 03/02/23 Obstructive stone in the right distal ureter with associated hydronephrosis and hydroureter. Additional nonobstructive stones are seen bilaterally.
[~2023-04-16 06:20] MED LIST changes: -ASPI-435 PO; -ATOR-22 PO; -CEFT1INJ57 IV; -FLM4 PO; -INSDGIPEN INJ; +LR 15ML/HR IV SCH; -LSN5 PO; -METF-841 PO; -MULT-506 PO; -NVLG INJ; -OXYC-57 PO; -VNTHFA/IN INH
--- OUTSIDE RECORDS SUMMARY | 2023-04-16 06:28 | External Medical Summary | Summary of Care ---
Author Name Unknown Organization [facility] Address [address] [place] [address] Phone [phone] Care Team Providers Care Towel Sorter Name Role Phone Jessica Taylor MD Primary Care Provider [phone] Encounter Details Date Type Department Care Team (Late st Contact Info) Description 04/15/2023 Orders Only [place] [id number] [place] [address] Jessica Taylor MD [address] [place] [address] Allergies Active Allergy Reactions Criticality Noted Date Comments Atorvastatin Hives High 11/28/2021 Lisinopril Edema face/lips/tongue High 11/21/2019 documented as of this encounter (statuses as of 04/15/2023) Medications Medication Sig Dispensed Refills Start Date End Date Status Blood Glucose Monitoring Suppl (FitbayUCH ULTRA SYSTEM) W/DEVICE KITIndications:DM type 2, goal A1c below 7 Use as directed 4 times a day as needed for Hyperglycemia (high sugar) or Hypoglycemia (low sugar). Dx E11.9 1 Kit 0 05/23/2015 Active Cyanocobalamin (B-12) 1000 MCG Capsule Take 1 Capsule by mouth in the morning. 0 Active Cholecalciferol (VITAMIN D) 1000 units Tablet Take 1 Tablet by mouth in the morning. 0 Active Torsemide 20 MG Oral Tablet (Demadex)Indications [...] 3 billion cell capsule. 0 12/01/2021 Active Metoprolol Succinate ER 50 MG Oral Tablet Extended Release 24 Hour (toPROL XL)Indications:Acute systolic (congestive) heart failure (HCC),Chronic systolic congestive heart failure (HCC),Typical atrial flutter (HCC) TAKE ONE TABLET BY MOUTH EVERY MORNING 30 Tablet 11 12/15/2022 Active Eliquis 5 MG Oral Tablet (Apixaban)Indication s:Acute systolic (congestive) heart failure (HCC),Chronic systolic congestive heart failure (HCC),Typical atrial flutter (HCC) TAKE 1 TABLET BY MOUTH IN THE MORNING AND 1 TABLET BEFORE BEDTIME 180 Tablet 3 01/12/2023 Active Losartan Potassium 50 MG Oral Tablet (Cozaar) Take 1 Tablet by mouth in the morning. 90 Tablet 3 01/16/2023 Active metFORMIN HCl 500 MG Oral Tablet (Glucophage)Indicati ons:Chronic systolic congestive heart failure (HCC),LBBB (left bundle branch block),Non-ischemic cardiomyopathy (HCC) TAKE ONE TABLET BY MOUTH TWICE A DAY WITH MORNING AND EVENING MEALS 60 Tablet 5 02/17/2023 Active Ozempic (1 MG/DOSE) 2 MG/1.5ML Subcutaneous Solution Pen-injector (Semaglutide (1 MG/DOSE)) Inject 1 mg under the skin once a week. 3 Each 1 02/24/2023 Active Furosemide 40 MG Oral Tablet (Lasix)Indications:C hronic systolic congestive heart failure (HCC),LBBB (left bundle branch block),Non-ischemic cardiomyopathy (HCC) TAKE ONE TABLET BY MOUTH EVERY MORNING 30 Tablet 2 03/02/2023 Active OneTouch Delica Lancets 33G USE ONE LANCET TO CHECK GLUCOSE 4 TIMES DAILY 100 Each 5 03/17/2023 Active OneTouch Ultra In Vitro Strip (Glucose Blood) USE ONE STRIP TO CHECK GLUCOSE 4 TIMES DAILY DIRECTED NEEDED FOR HYPERGLYCEMIA (HIGH SUGAR) OR HYPOGLYCEMIA (LOW SUGAR) 100 Strip 5 03/17/2023 Active Amiodarone HCl 200 MG Oral Tablet (Cordarone)Indicatio ns:Typical atrial flutter (HCC),Chronic systolic congestive heart failure (HCC),LBBB (left bundle branch block) TAKE ONE TABLET BY MOUTH EVERY MORNING 90 Tablet 3 03/30/2023 Active amLODIPine Besylate 2.5 MG Oral Tablet (Norvasc) TAKE ONE TABLET BY MOUTH AT BEDTIME 90 Tablet 3 03/27/2023 Active Semglee (yfgn) 100 UNIT/ML Subcutaneous Solution Pen-injectorIndicati ons:Type 2 diabetes mellitus with hemoglobin A1c goal of less than 7.0% (HCC) INJECT 50 UNITS UNDER THE SKIN AT BEDTIME 45 mL 0 03/28/2023 Active documented as of this encounter (statuses as of 04/15/2023) Active Problems Problem Noted Date Diagnosed Date [...] as of this encounter (statuses as of 04/15/2023) Resolved Problems Problem Noted Date Diagnosed Date [...] as of this encounter (statuses as of 04/15/2023) Immunizations Name Administration Dates Next Due COVID-19 [...] Care Team (Late st Contact Info) Description 08/04/2023 10:00 AM EDT Office Visit Cardiology, [facility] [address] [facility] [place] [address] Amber Abebe PA-C [address] [place] [address] Health Maintenance Due Date Last Done Comments [...] Vaccine (FLU shot) (#1) 2022 GFR 07/17/2023 04/14/2023, 12/20, 12/04/2021, Additional history exists HbA1c 07/17/2023 01/16/2023, 11/18, 02/04/2021, Additional history exists Albumin/Creatinine Ratio 01/17/2024 023, 11/28/2021, 10/16/2017, Additional history exists CKD HGB USE SMARTSET 02094 01/17/202404/14, 01/16/2023, 01/16/2023, Additional history exists CKD PHOS USE SMARTSET 13999 01/17/2024 01/16/2023 Mammogram 02/06/2024 02/05/2023, 05/22, 11/12/2017, Additional history exists GARDASIL-HPV IMMUNIZATION SERIES Aged Out No longer eligible based on patient's age to complete this topic MENINGOCOCCAL (MENACTRA/MENVEO) Aged Out No longer eligible based on patient's age to complete this topic documented as of this encounter Medical Devices Not on filedocumented as of this encounter Procedures Procedure Name Priority Date/Time Associated Diagnosis Comments CHEMISTRY-OUTSIDE Routine 04/14/2023 documented in this encounter Results * (ABNORMAL) CHEMISTRY-OUTSIDE (04/14/2023) Not all results display below - see scan for full detail OUTSIDE LAB (SEE SCANNED REPORT) Comment:SCAN INCLUDES - BMP, CBC CREATININE-OUTSID E LAB 1.19 0.6 - 1.2 MG/DL OUTSIDE LAB (SEE SCANNED REPORT) EGFR-OUTSIDE LAB 50.6 ML/MIN OUT SIDE LAB (SEE SCANNED REPORT) POTASSIUM-OUTSIDE LAB 4.0 3.5 - 5.1 MMOL/L OUTSIDE LAB (SEE SCANNED REPORT) GLUCOSE-OUTSIDE LAB 182(A) 70 - 99 MG/DL OUTSIDE LAB (SEE SCANNED REPORT) HOURS FASTING OUTSID E LAB (SEE SCANNED REPORT) TRIGLYCERIDES-OUT SIDE LAB OUTSIDE LAB (SEE SCANNED REPORT) CHOLESTEROL-OUTSI DE LAB OUTSIDE LAB (SEE SCANNED REPORT) HDL-OUTSIDE LAB OUTS [facility] (SEE SCANNED REPORT) CHOL/HDL RATIO-OUTSIDE LAB OUTSIDE LA B (SEE SCANNED REPORT) LDL (CALCULATED)-OUTS [facility] OUTSIDE LAB (SEE SCANNED REPORT) LDL (DIRECT MEASURE)-OUTSIDE LAB OUTSIDE LAB (SEE SCANNED REPORT) HEMOGLOBIN, [id number] LAB OUTSIDE LAB (SEE SCANNED REPORT) PHOSPHORUS-OUTSID E LAB OUTSIDE LAB (SEE SCANNED REPORT) PTH-OUTSIDE LAB OUTS [facility] (SEE SCANNED REPORT) MICROALBUMIN RATIO-OUTSIDE LAB OUTSIDE LA B (SEE SCANNED REPORT) PROTEIN, UA-OUTSIDE LAB OUTSIDE LAB (SEE SCANNED REPORT) HEMOGLOBIN-OUTSID E LAB 14.0 12.0 - 16.0 G/DL OUTSIDE LAB (SEE SCANNED REPORT) 04/14/2023 [facility] OUTSIDE LAB (SEE SCANNED REPORT) documented in this encounter Advance Directives Latest Code Status on File Code Status Date Activated Date Inactivated Comments Full Code 02/03/2017 2:42 PM 02/05/2017 5:26 PM Thi s order reflects the patients wishes and were consensually agreed upon. Care Teams Towel Sorter Relationship Specialty Start Date End Date Jessica Taylor MD [address] [facility] [place] [address] PCP - General Internal Medicine 12/04/21 documented as of this encounter
[2023-04-16] MEDS ORDERED: DEXAMETHASONE SOD INJ 4 MG/ML VIAL ONE (06:34)
[2023-04-16] MEDS ORDERED: ONDANSETRON INJ 2 MG/ML 2 ML VIAL ONE (06:34)
[2023-04-16] MEDS ORDERED: PROPOFOL IV EMULSION 10 MG/ML 20 ML VIAL IV ONE (06:34)
[2023-04-16] MEDS ORDERED: LIDOCAINE 2% 2 ML VIAL/AMP(20MG/ML) INFIL ONE (06:34)
[2023-04-16] MEDS ORDERED: KETOROLAC 30 MG/ML VIAL ONE (06:34)
[2023-04-16] MEDS ORDERED: MIDAZOLAM HCL 1 MG/ML 2ML VIAL ONE (06:35)
[2023-04-16] MEDS ORDERED: fentaNYL citrate PF 100 MCG/2 ML VIAL ONE (06:35)
[2023-04-16] MEDS ORDERED: fentaNYL citrate PF 100 MCG/2 ML VIAL IV PRN (06:45)
[2023-04-16] MEDS ORDERED: ATROPINE SULFATE 0.1 MG/ML 10ML SYR IV PRN (06:45)
[2023-04-16] MEDS ORDERED: ONDANSETRON INJ 2 MG/ML 2 ML VIAL IV PRN (06:45)
[2023-04-16] MEDS ORDERED: ePHEDrine sulfate 50 MG/ML AMP IV PRN (06:45)
--- NOTE | 2023-04-16 06:46 | History & Physical Bridge Note ---
Date of Service April 16, 2023 History & Physical Bridge Note I have examined the patient, reviewed the History & Physical and in the interval since the performance of the History & Physical I have noted the following changes of clinical significance: no changes noted
[2023-04-16] MEDS ORDERED: ROCURONIUM BROMIDE 10 MG/ML 5 ML VIAL IV ONE (07:39)
[2023-04-16] MEDS ORDERED: SUCCINYLCHOLINE CHLORIDE 20 MG/ML 10 ML VIAL IV ONE (07:39)
[2023-04-16] MEDS ORDERED: DIATRIZOATE MEGLUMINE 30% 100ML VIAL INSTIL PRN (08:34)
--- NOTE | 2023-04-16 08:43 | Operative Report ---
PG Post Operative Report Pre & Post Diagnosis Operation Date: 04/16/23 08:10 Pre-Op Diagnosis: Calcium Nephrolithiasis Right ureteral and Renal stones Left Renal Stone Post-Op Diagnosis: Calcium Nephrolithiasis. Right Ureteral and Renal Stones Left Renal stones I identified the patient and participated in the time-out.: Yes Procedure Operation Date: 04/16/23 08:10 Actual Procedures Cystoscopy with bilateral retrograde pyelogram. Right Ureteroscopy of ureteral stone and renal stone, Laser Lithotripsy, Exchange of right Stent Catheter Left Ureteral Dilation, Left Ureteroscopy, Left Laser Lithotripsy, Stone Basket Extraction, and Stent placement - Win Jiang DO Surgeon Win Jiang, II, DO Notcher None Estimated Blood Loss 1 Findings Consistent with Post-Op Diagnosis Right ureteral and renal stones destroyed to dust and small fragments. Right stent exchanged. Stricture of distal left ureter. Left very large upper pole stones with innumerable lower pole stones. Stones destroyed to dust and small fragments and larger fragments removed. Specimens Stone Fragments - Left Renal Drains 7 Fr x 26 bilateral Anesthesia Type General Complications none Disposition Disposition: Recovery Room Indications Patient with bothersome stones. Risks and benefits discussed at length. Description of Procedure Patient was consented and brought back to the operating room. Patient was placed under anesthesia in the supine position and moved to the dorsal lithotomy position. Patient was prepped and draped in the regular sterile fashion. A time out was completed identifying the correct patient and procedure. A 30degree Cystoscope was placed into the bladder and the entire bladder was examined. The UO's were identified. The right stent was grasped and partially removed. A wire was then placed with the wire in place over the wire a dual-lumen ureteral catheter was placed and contrast was injected. Stone fragments did appear to be at the UPJ with likely numerous fragments throughout the renal pelvis. A wire was then replaced. A second safety wire was placed. The flexible ureteroscope was taken into the ureter. The entire ureter and renal pelvis were examined. The stones were identified within the proximal ureter as well as innumerable stone fragments in the renal pelvis. The kidney did have a somewhat irregular positioning likely contributing to the significant stones. A laser fiber was selected and the stones were pulverized to dust and small fragments. Stones in the ureter were treated first and then the scope was advanced and the innumerable stones in the renal pelvis were then destroyed to small fragments. The fragments were found to be too small to grasp. The stones had all been significantly treated with no major fragments or other issues The entire area was once again examined. No residual large fragments or areas of concern were noted. The scope was slowly removed with the wire left in place. Contrast was placed through the scope for a pyelogram to assist in stent placement. The entire ureter was examined as the scope was slowly removed. No obstructions or other areas of concern were noted. With the wire in place, a 7 Fr Double J stent was placed. It was confirmed with fluoroscopy. Attention was then taken onto the left side The UO was cannulized with a catheter and a retrograde pyelogram was completed. A wire was then placed. Significant narrowing was noted at the distal ureter/UO. This was dilated. A ureteral access sheath and second safety wire was placed. The flexible ureteroscope was taken into the ureter. The entire ureter and renal pelvis were examined. The stones were identified. Innumerable stones were found in the lower pole. 3 very large stones were discovered in the upper pole. A laser fiber was selected and the stones were pulverized to dust and small fragments. Larger fragments were grasped and removed and sent for analysis. The entire area was once again examined. No residual large fragments or areas of concern were noted. The scope was slowly removed with the wire left in place. Contrast was placed through the scope for a pyelogram to assist in stent placement. The entire ureter was examined as the scope was slowly removed. No obstructions or other areas of concern were noted. With the wire in place, a 7 Fr Double J stent was placed. It was confirmed with fluoroscopy. With the stents in place, the bladder was emptied. The scope was removed. The patient was cleaned, aroused from anesthesia, and transferred to the pacu in stable condition having tolerated the procedure well with no complications. I was present and participated in all aspects of the procedure. The patient will be monitored in the PACU until transferred. I attest to the content of the Intraoperative Record and any orders documented therein. Any exceptions are noted below.
[2023-04-16] MEDS ORDERED: hydrALAZINE HCL 20 MG/ML VIAL IV STA (08:49)
[2023-04-16] MEDS ORDERED: hydrALAZINE HCL 20 MG/ML VIAL ONE (08:50)
[2023-04-16] MEDS ORDERED: ALBUT/IPRATROP 3MG/0.5MG NEB 3 ML VIAL NEB STA (11:01)
--- NOTE | 2023-04-16 11:43 | Fluoroscopy Report ---
INTRAOPERATIVE RADIOGRAPHS CLINICAL HISTORY: Bilateral ureteral stent placements. Fluoro time: 27 seconds Ka,r: 66.57 mGy FINDINGS: 5 spot fluoroscopic views of the abdomen are correlated with abdominal CT dated 03/02/2023. On the provided images there is contrast in the right collecting system which shows hydronephrosis. No hydronephrosis is seen on the left. A lithotripsy device is advanced bilaterally. Images show the proximal and distal ends of bilateral ureteral stents in appropriate position. IMPRESSION: Intraoperative images from bilateral ureteral stent placement as above. Electronically signed by: Myles Fisher M.D. 04/16/2023 11:40 AM
--- NOTE | 2023-04-16 13:04 | XRay Report ---
SINGLE VIEW CHEST CLINICAL HISTORY: Hypoxia FINDINGS: An AP, portable, upright chest radiograph is compared to study dated 03/02/2023 and correla catalina with chest CT dated 07/17/2020. The heart is enlarged. There is pulmonary vascular congestion. Ra ateral airspace opacities are noted. No large pleural effusion or pneumothorax is seen. The skeletal structures are osteopenic. The bony thorax is grossly intact. IMPRESSION: 1. Cardiomegaly with evidence of congestive failure. 2. Bilateral airspace opacities likely represent pulmonary edema. Correlate clinically for evidence o f a superimposed infectious/inflammatory pneumonitis. Radiographic follow-up to resolution is recomme nded. ACT 112: Negative or not required by law. Electronically signed by: Myles Fisher M.D. 04/16/2023 1:03 PM
[2023-04-16] MEDS ORDERED: oxyCODONE/ACETAMINOPHEN 5mg/325mg TAB PO PRN (13:36)
[2023-04-16] MEDS ORDERED: hydrALAZINE HCL 20 MG/ML VIAL IV PRN (15:16)
--- NOTE | 2023-04-16 15:58 | Anesthesiology Progress Note ---
Date of Service April 16, 2023 Anesthesia Post Procedure Vital Signs Vital Signs: Temp Pulse Pulse Resp BP Pulse Ox O2 Del Method 04/16/23 15:46 37 C 91 H 18 182/93 H 96 Nasal Cannula 04/16/23 15:23 36.9 C 96 H 22 192/91 H 94 Nasal Cannula 04/16/23 14:58 Nasal Cannula 04/16/23 14:45 37.1 C 96 H 20 184/82 H 93 Nasal Cannula 04/16/23 14:25 36.4 C L 81 18 183/84 H 94 Nasal Cannula 04/16/23 12:30 79 18 181/89 H 93 Nasal Cannula 04/16/23 11:35 79 20 185/83 H 92 Nasal Cannula 04/16/23 11:00 36.5 C 81 18 180/81 H 84 L Room Air 04/16/23 10:10 72 18 197/78 H 93 Nasal Cannula 04/16/23 09:44 36.6 C 77 18 185/80 H 87 L Nasal Cannula 04/16/23 09:40 36.3 C L 74 15 187/81 H 94 Nasal Cannula 04/16/23 09:30 72 14 178/81 H 94 Nasal Cannula 04/16/23 09:20 74 17 198/90 H 93 Nasal Cannula 04/16/23 09:10 76 20 186/82 H 93 Nasal Cannula 04/16/23 09:00 76 16 187/80 H 99 Oxymask 04/16/23 08:50 74 18 203/95 H 92 Oxymask 04/16/23 08:41 36.5 C 78 14 209/103 H 95 Oxymask 04/16/23 06:27 37.0 C 77 17 194/98 H 96 Room Air O2 Flow Rate 04/16/23 15:46 3 04/16/23 15:23 2 04/16/23 14:58 2 04/16/23 14:45 2 04/16/23 14:25 2 04/16/23 12:30 2 04/16/23 11:35 2 04/16/23 11:00 04/16/23 10:10 2 04/16/23 09:44 2 04/16/23 09:40 2 04/16/23 09:30 2 04/16/23 09:20 2 04/16/23 09:10 4 04/16/23 09:00 6 04/16/23 08:50 10 04/16/23 08:41 10 04/16/23 06:27 Pain Intensity Lower Back: Pain Intensity: 1 Transfer of Care Handoff Completed per policy Notes Mental Status: alert / awake / arousable Patient Amnestic to Procedure: Yes Nausea / Vomiting: adequately controlled Pain: adequately controlled Airway Patency, RR, SpO2: see Notes below BP & HR: stable & adequate Hydration State: stable & adequate Anesthetic Complications: no major complications apparent and Pt Satisfied with anesthetic care Notes: Patient oxygen saturations in mid-high 80s on RA, low 90s on 2% NC. Patient slightly dyspneic. Expiratory wheezing on lung bases bilaterally auscultated on exam. Ordered duoneb with mild improvement. Likely 2/2 atelectasis vs asthma exacerbation vs CHF exacerbation. Ordered CXR which showed concern for pulmonary edema. Admitted patient to medicine for further evaluation and observation.
--- NOTE | 2023-04-16 16:00 | Hospitalist Consultation ---
Date of Consultation April 16, 2023 Assessment & Plan (1) Kidney stones: This is a 57 y/o female with a PMH of recurrent nephrolithiasis, atrial flutter, dilated cardiomyopathy with severe LV dysfunction (EF ~20%), insulin-requiring DM, HTN, GERD, and dyslipidemia who underwent cystoscopy with bilateral ureteroscopy, lithotripsy, and ureteral stent exchange today by Dr. Jiang. Post-operatively she was noted to have hypoxia requiring 2-3L of O2 to maintain sats. Chest x-ray concerning for pulmonary edema so furosemide 40 mg IV x 1 dose ordered. Pt reports respiratory status is starting to improve though still requiring O2. Her BP was also markedly elevated post-op with systolic 180s-190s, also did not take routine BP meds since yesterday. - Pain control per primary team - Encourage incentive spirometry - may have component of post-op atelectasis - Watch for signs of aspiration due to post-op vomiting (fever, leukocytosis, evolving lung exam) - Resume home BP meds, specifically beta-raffi this afternoon - Recommend resuming Eliquis once okay with primary team - pt on due to hx PAF (2) Postoperative hypoxia: (3) Diabetes mellitus, type 2: Basal insulin ordered Insulin sliding scale coverage Hold Metformin while admitted A1c in AM BSG ACHS (4) Atrial flutter: (5) Hypertension: Plan Home medications reconciled Pt seen and reviewed with collaborating physician, Dr. Zayas. Plan of care discussed and as outlined above. Thank you for this consultation. We will continue to follow the patient with you. [facility] via [employer]. Please don't hesitate to reach out with questions. Perla Kern PA-C Supervising Physician Co-Signing Physician Notes Attending addendum: The patient was seen and examined in medical floor She is status post cystoscopy and right ureteroscopy and laser lithotripsy Has significant past medical history as mentioned in H&P Noted to have hypoxic following surgery and also blood pressure was very high without any chest pain and her palpitation Chest x-ray showed CHF On examination Lying in bed without any acute distress Has been requiring 2 L to maintain saturation Chest-decreased breath sound bilaterally with dependent crackles Heart-S1-S2 regular. 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, awake and oriented x 3 Her labs, EKG and imaging studies reviewed Significant high blood pressure with evidence of CHF on chest x-ray status post cystoscopy Did not receive her blood pressure medications in the morning Received hydralazine intravenously x 2 doses blood pressure remains high at 180/98 Will give metoprolol 50 mg now and also give half of the doses of losartan 25 now Got 40 of Lasix orally this morning Will give 40 Lasix IV now-monitor CBC and PRP Agree with assessment and plan as outlined above by RENAE Hart Dr History of Present Illness Reason for Consultation: Post-op hypoxia, med management Requesting Physician: Dr. Win Jiang Attending Physician: Win Jiang, II, DO History of Present Illness This is a 57 y/o female with a PMH of recurrent nephrolithiasis, atrial flutter on chronic AC, dilated cardiomyopathy with severe LV dysfunction (EF ~20%), insulin-requiring DM, HTN, GERD, and dyslipidemia who underwent cystoscopy with bilateral ureteroscopy, lithotripsy, and ureteral stent exchange today by Dr. Jiang. Post-operatively she was noted to have hypoxia requiring 2-3L of O2 to maintain sats so we have been consulted to assist with medical management. Pt notes that she did not take any of her routine medications this morning - last dose of BP meds and furosemide were yesterday. She was given Hydralazine and furosemide 40 mg IV x 1 post-operatively, and she currently feels like her respiratory status is improving. She also noted significant nausea initially with at least two episodes of emesis but reports the nausea seems to be improving as well. Her post-operative pain is well-controlled. Currently, she is resting comfortably in bed. She denies chest pain, palpitations, dizziness. She denies any known episodes of aspiration post-operatively. Allergies Allergy/AdvReac Type Severity Reaction Status Date / Time lisinopril Allergy Severe Anaphylaxis Verified 04/16/23 06:32 atorvastatin Allergy Intermediate Hives - Verified 04/16/23 06:32 itchy Home Medications Medication Instructions Recorded Confirmed Type cholecalciferol (vitamin D3) 25 25 mcg PO QAM 07/17/20 04/16/23 History mcg (1,000 unit) capsule cyanocobalamin (vitamin B-12) 1,000 mcg PO QAM 07/17/20 04/16/23 History 1,000 mcg tablet omeprazole magnesium 20 mg 20 mg PO QAM 07/17/20 04/16/23 History tablet,delayed release (Prilosec OTC) apixaban 5 mg tablet (Eliquis) 5 mg PO BID 30 days #60 tabs 07/22/20 04/16/23 Rx amiodarone 200 mg tablet 200 mg PO QAM #30 tabs 09/01/20 04/16/23 Rx metoprolol succinate 50 mg 50 mg PO QAM #30 tabs 09/01/20 04/16/23 Rx tablet,extended release 24 hr insulin glargine-yfgn 100 unit/mL 50 unit (0.5 mL) subcut HS #15 mL 12/01/21 04/16/23 Rx (3 mL) subcutaneous pen (Semglee (insulin glargine-yfgn) Pen) amlodipine 2.5 mg tablet 2.5 mg PO HS 07/11/22 04/16/23 History furosemide 40 mg tablet 40 mg PO QAM 07/11/22 04/16/23 History metformin 500 mg tablet 500 mg PO BID 07/11/22 04/16/23 History oxycodone 5 mg tablet 5 mg PO Q6H PRN pain #15 tabs 07/11/22 04/16/23 Rx losartan 50 mg tablet 50 mg PO QAM 03/02/23 04/16/23 History semaglutide 1 mg/dose (4 mg/3 mL) 0.5 mg subcut Q7D 03/02/23 04/16/23 History subcutaneous pen injector (Ozempic) oxycodone-acetaminophen 7.5 mg-325 1 tab PO Q8H PRN pain #7 tabs 03/19/23 04/16/23 Rx mg tablet (Percocet) phenazopyridine 200 mg tablet 200 mg PO Q8H PRN pain #10 tabs 03/19/23 04/16/23 Rx (Pyridium) tamsulosin 0.4 mg capsule 0.4 mg PO HS #30 caps 03/19/23 04/16/23 Rx ciprofloxacin HCl 500 mg tablet 500 mg PO Q12H #10 tabs 04/16/23 Rx (Cipro) oxycodone-acetaminophen 7.5 mg-325 1 tab PO Q8H PRN pain #7 tabs 04/16/23 Rx mg tablet (Percocet) phenazopyridine 200 mg tablet 200 mg PO Q8H PRN pain #10 tabs 04/16/23 Rx (Pyridium) tamsulosin 0.4 mg capsule 0.4 mg PO HS #30 caps 04/16/23 Rx Patient History Medical History (Updated 04/16/23 @ 16:58 by Latha Kern PA-C) Cardiomyopathy nonischemic per last [facility] cardio note 04/2021 History of cardioversion x2, [facility] Asthma in remission CKD (chronic kidney disease) stage 3, GFR 30-59 ml/min RCA occlusion Chronic systolic heart failure Atrial flutter f/u dr. [facility] Severe left ventricular systolic dysfunction last evaluation of EF to chart review, echo 06/2020: EF 45-49% on 08/16/20 echo LBBB (left bundle branch block) f/u dr. [facility] Morbid obesity Spinal stenosis Kidney stones GERD (gastroesophageal reflux disease) Diabetes mellitus, type 2 IDDM, injectable, and oral meds Hyperlipidemia Hypertension Surgical History History of nephrolithotomy with removal of calculi History of cholecystectomy History of tonsillectomy History of section x2 Hx of cystoscopy with stone extraction Status post cystoscopy with ureteral stent placement most recent 03/02/23 [facility] Family History Mother Pancreatic cancer Diabetes Bilateral kidney stones Sister Bilateral kidney stones Hypertension Father Heart disease Brother Bilateral kidney stones Other No family history of adverse response to anesthesia Social History Smoking Status: Never smoker Second Hand Exposure: No; Do You Dip or Chew Tobacco: No; Tobacco Cessation Education Requested by Patient: No Hx Alcohol Use: No Hx Substance Use: No Preferred Language: Bolivian Communication Ability: Effective Visual Impairment: No Limitations Claim Specialist Required: No Beliefs That Will Affect Care: None Current Living Situation: Family Other Information That Helps Us Care for You: No Feels Safe at Home: Yes Safety Concerns: Feels Safe At This Time Assistive Devices: Glasses Review of Systems Review of Systems: All systems reviewed & are unremarkable except as noted in HPI & below Physical Exam Physical Exam: General: awake, alert, NAD HEENT: no scleral icterus, slightly dry oral mucosa Neck: trachea midline Heart: regular but tachycardic Lungs: mildly diminished breath sounds but no wheezes. +crackles at bases Abdomen: soft, +BS Extremities: 1+ pedal edema bilaterally Skin: no jaundice Neurologic: moving all extremities, oriented x 3, no confusion or dysarthria Results & Data Results & Data Vital Signs (Past 12 Hours) Vital Signs Temp Pulse Pulse Resp BP Pulse Ox O2 Del Method 04/16/23 15:46 37 C 91 H 18 182/93 H 96 Nasal Cannula 04/16/23 15:23 36.9 C 96 H 22 192/91 H 94 Nasal Cannula 04/16/23 14:58 Nasal Cannula 04/16/23 14:45 37.1 C 96 H 20 184/82 H 93 Nasal Cannula 04/16/23 14:25 36.4 C L 81 18 183/84 H 94 Nasal Cannula 04/16/23 12:30 79 18 181/89 H 93 Nasal Cannula 04/16/23 11:35 79 20 185/83 H 92 Nasal Cannula 04/16/23 11:00 36.5 C 81 18 180/81 H 84 L Room Air 04/16/23 10:10 72 18 197/78 H 93 Nasal Cannula 04/16/23 09:44 36.6 C 77 18 185/80 H 87 L Nasal Cannula 04/16/23 09:40 36.3 C L 74 15 187/81 H 94 Nasal Cannula 04/16/23 09:30 72 14 178/81 H 94 Nasal Cannula 04/16/23 09:20 74 17 198/90 H 93 Nasal Cannula 04/16/23 09:10 76 20 186/82 H 93 Nasal Cannula 04/16/23 09:00 76 16 187/80 H 99 Oxymask 04/16/23 08:50 74 18 203/95 H 92 Oxymask 04/16/23 08:41 36.5 C 78 14 209/103 H 95 Oxymask 04/16/23 06:27 37.0 C 77 17 194/98 H 96 Room Air O2 Flow Rate 04/16/23 15:46 3 04/16/23 15:23 2 04/16/23 14:58 2 04/16/23 14:45 2 04/16/23 14:25 2 04/16/23 12:30 2 04/16/23 11:35 2 04/16/23 11:00 04/16/23 10:10 2 04/16/23 09:44 2 04/16/23 09:40 2 04/16/23 09:30 2 04/16/23 09:20 2 04/16/23 09:10 4 04/16/23 09:00 6 04/16/23 08:50 10 04/16/23 08:41 10 04/16/23 06:27 Laboratory Results Laboratory Results - last 24 hr 04/16/23 04/16/23 04/16/23 08:20 08:43 12:59 WBC RBC Hgb Hct MCV MCH MCHC RDW Std Deviation RDW Coeff of Nancy Plt Count MPV Immature Gran % (Auto) Neut % (Auto) Lymph % (Auto) [place] % (Auto) Eos % (Auto) Baso % (Auto) Neut # (Auto) Lymph # (Auto) [place] # (Auto) Eos # (Auto) Baso # (Auto) Immature Gran # (Auto) Sodium Potassium Chloride Carbon Dioxide Anion Gap BUN Creatinine Est Cr Clr Drug Dosing Est GFR ( Amer) Est GFR (Non-Af Amer) BUN/Creatinine Ratio Glucose POC Glucose 180 H 226 H Calcium Stone Source Pending Stone Weight Pending Stone Composition Pending Stone Composition 2 Pending 04/16/23 04/16/23 15:41 16:33 WBC 11.79 H RBC 4.24 Hgb 12.4 Hct 36.3 L MCV 85.6 MCH 29.2 MCHC 34.2 RDW Std Deviation 39.5 RDW Coeff of Nancy 12.7 Plt Count 243 MPV 11.8 Immature Gran % (Auto) 0.3 Neut % (Auto) 90.3 Lymph % (Auto) 5.9 [place] % (Auto) 3.0 Eos % (Auto) 0.1 Baso % (Auto) 0.4 Neut # (Auto) 10.64 H Lymph # (Auto) 0.70 L [place] # (Auto) 0.35 Eos # (Auto) 0.01 Baso # (Auto) 0.05 Immature Gran # (Auto) 0.04 Sodium 142 Potassium 3.9 Chloride 103 Carbon Dioxide 29 Anion Gap 10 BUN 16 Creatinine 1.08 Est Cr Clr Drug Dosing 79.2 Est GFR ( Amer) 66.0 Est GFR (Non-Af Amer) 56.9 BUN/Creatinine Ratio 14.8 Glucose 237 H POC Glucose 210 H Calcium 9.0 Stone Source Stone Weight Stone Composition Stone Composition 2 Diagnostic Findings Retrograde Pyelogram 04/16/23 00:00 INTRAOPERATIVE RADIOGRAPHS CLINICAL HISTORY: Bilateral ureteral stent placements. Fluoro time: 27 seconds Ka,r: 66.57 mGy FINDINGS: 5 spot fluoroscopic views of the abdomen are correlated with abdominal CT dated 03/02/2023. On the provided images there is contrast in the right collecting system which shows hydronephrosis. No hydronephrosis is seen on the left. A lithotripsy device is advanced bilaterally. Images show the proximal and distal ends of bilateral ureteral stents in appropriate position. IMPRESSION: Intraoperative images from bilateral ureteral stent placement as above. Electronically signed by: Myles Fisher M.D. 04/16/2023 11:40 AM Chest X-Ray 04/16/23 12:24 SINGLE VIEW CHEST CLINICAL HISTORY: Hypoxia FINDINGS: An AP, portable, upright chest radiograph is compared to study dated 03/02/2023 and correlated with chest CT dated 07/17/2020. The heart is enlarged. There is pulmonary vascular congestion. Bilateral airspace opacities are noted. No large pleural effusion or pneumothorax is seen. The skeletal structures are osteopenic. The bony thorax is grossly intact. IMPRESSION: 1. Cardiomegaly with evidence of congestive failure. 2. Bilateral airspace opacities likely represent pulmonary edema. Correlate clinically for evidence of a superimposed infectious/inflammatory pneumonitis. Radiographic follow-up to resolution is recommended. ACT 112: Negative or not required by law. Electronically signed by: Myles Fisher M.D. 04/16/2023 1:03 PM Medications Administered Diatrizoate Meglumine (Diatrizoate Meglumine 30% 100ml Vial) 80 ml INSTIL UD PRN PRN Reason: Radiology Use Stop: 04/20/23 08:33 Last Admin: 04/16/23 08:34 Dose: 80 ml Documented By: [id number] Lactated Ringer's (Lr) 1,000 mls @ 15 mls/hr IV .Q24H JUAN Stop: 04/17/23 05:59 Last Infusion: 04/16/23 07:10 Dose: Infused Documented By: Admin: 04/16/23 06:35 Dose: 15 mls/hr Documented By: LUKE Cefazolin Sodium (Ancef 3000mg) 72.5 mls @ 130 mls/hr IV PREOP JUAN; Protocol Stop: 04/16/23 18:00 Last Infusion: 04/16/23 16:03 Dose: Infused Documented By: Admin: 04/16/23 07:12 Dose: 130 mls/hr Documented By: BRENDA Discontinued Medications Albuterol (Albut/Ipratrop 3mg/0.5mg Neb 3 Ml Vial) 3 ml NEB NOW STA; Protocol Stop: 04/16/23 11:02 Last Admin: 04/16/23 16:03 Dose: Not Given Documented By: MIKEY Hydralazine HCl (Hydralazine Hcl 20 Mg/Ml Vial) 10 mg IV NOW STA Stop: 04/16/23 08:50 Last Admin: 04/16/23 09:09 Dose: 10 mg Documented By: BRENDA(2) Hydralazine HCl (Hydralazine Hcl 20 Mg/Ml Vial) Confirm Administered Dose 20 mg .ROUTE .STK-MED ONE Stop: 04/16/23 08:51 Last Admin: 04/16/23 09:08 Dose: Not Given Documented By: BRENDA(2) Ondansetron HCl (Ondansetron Inj 2 Mg/Ml 2 Ml Vial) 4 mg IV ONCE PRN PRN Reason: PACU Use Only-Nausea/Vomiting Stop: 04/16/23 14:45 Last Admin: 04/16/23 10:03 Dose: 4 mg Documented By: ALEJANDRA (3) Diabetes mellitus, type 2 Diabetes mellitus complication status: with hyperglycemia Diabetes mellitus exterminator termite insulin use: with exterminator termite use Qualified Code(s): E11.65 - Type 2 diabetes mellitus with hyperglycemia; Z79.4 - long-term (current) use of insulin (4) Atrial flutter Atrial flutter type: atypical Qualified Code(s): I48.4 - Atypical atrial flutter (5) Hypertension Hypertension type: unspecified Qualified Code(s): I10 - Essential (primary) hypertension
[2023-04-16] MEDS ORDERED: FUROSEMIDE 40 MG/4 ML VIAL IV ONE ×2 (16:03→16:48)
[2023-04-16 16:04] LABS: Hematocrit (blood only) 36.3 % (37.0-47.0); Hemoglobin 12.4 g/dl (12.0-16.0); Mean Corpuscular Hemoglobin 29.2 pg (25.0-34.0); Mean Corpuscular Hgb Conc 34.2 g/dL (32.0-36.0); Mean Corpuscular Volume 85.6 fL (80.0-100.0); Mean Platelet Volume 11.8 fL (9.4-12.4); Platelet Count 243 K/uL (130-400); RDW Coefficient of Variation 12.7 % (11.5-14.5); RDW Standard Deviation 39.5 fL (36.4-46.3); Red Blood Count 4.24 M/uL (4.20-5.40); White Blood Count 11.79 K/ul (4.8-10.8)
[2023-04-16] MEDS ORDERED: METOPROLOL SUCC 50MG EXT REL TAB PO STA (16:16)
[2023-04-16 16:21] LABS: BUN Creatinine Ratio 14.8 (10-20); Creatinine Clr Calc Pharmacy 79.2 ml/min; Est GFR (Non-African American) 56.9 ml/min; Potassium 3.9 mmol/L (3.5-5.1)
[2023-04-16 16:24] LABS: Basophils # (auto) 0.05 K/uL (0.00-0.20); Basophils % (auto) 0.4 %; Eosinophils # (auto) 0.01 K/uL (0.00-0.50); Eosinophils % (auto) 0.1 %; Immature Granulocytes # (auto) 0.04 K/uL (0.01-0.20); Immature Granulocytes % (auto) 0.3 %; Lymphocytes % (auto) 5.9 %; Monocytes # (auto) 0.35 K/uL (0.11-0.59); Neutrophils # (auto) 10.64 K/uL (1.40-6.50); Neutrophils % (auto) 90.3 %
[2023-04-16] MEDS ORDERED: GLUCAGON FOR INJ 1 MG VIAL SQ PRN (16:25)
[2023-04-16] MEDS ORDERED: DEXTROSE 50% 50 ML SYRINGE IV PRN (16:25)
[2023-04-16] MEDS ORDERED: GLUCOSE 10 TAB/TUBE PO PRN (16:25)
[2023-04-16] MEDS ORDERED: CARBOHYDRATES FOR HYPOGLYCEMIA PO PRN (16:25)
[2023-04-16] MEDS ORDERED: GLUCOSE 40% GEL 15 GM TUBE PO PRN (16:25)
[2023-04-16] MEDS ORDERED: LOSARTAN POTASSIUM 25 MG TAB PO ONE (16:48)
[2023-04-16] MEDS: INSULIN ASPART PER UNIT CHARGE SC SCH ×2 (17:32→20:39)
[2023-04-16] MEDS: LANTUS PER UNIT CHARGE SQ SCH (20:38)
[2023-04-16] MEDS: CIPROFLOXACIN 500 MG TAB PO SCH (20:39)
[2023-04-16] MEDS ORDERED: amLODIPine BESYLATE 5 MG TAB PO SCH (21:00)
[2023-04-17] MEDS ORDERED: ACETAMINOPHEN 325 MG TAB PO PRN (04:46)
[2023-04-17 08:24] LABS: Basophils # (auto) 0.07 K/uL (0.00-0.20); Basophils % (auto) 0.6 %; Eosinophils # (auto) 0.07 K/uL (0.00-0.50); Eosinophils % (auto) 0.6 %; Hematocrit (blood only) 35.9 % (37.0-47.0); Hemoglobin 12.1 g/dl (12.0-16.0); Immature Granulocytes # (auto) 0.05 K/uL (0.01-0.20); Immature Granulocytes % (auto) 0.4 %; Lymphocytes # (auto) 1.98 K/uL (1.20-3.40); Lymphocytes % (auto) 17.5 %; Mean Corpuscular Hemoglobin 29.1 pg (25.0-34.0); Mean Corpuscular Hgb Conc 33.7 g/dL (32.0-36.0); Mean Corpuscular Volume 86.3 fL (80.0-100.0); Mean Platelet Volume 12.3 fL (9.4-12.4); Monocytes # (auto) 0.85 K/uL (0.11-0.59); Monocytes % (auto) 7.5 %; Neutrophils % (auto) 73.4 %; Platelet Count 250 K/uL (130-400); RDW Coefficient of Variation 12.9 % (11.5-14.5); RDW Standard Deviation 40.5 fL (36.4-46.3); Red Blood Count 4.16 M/uL (4.20-5.40); White Blood Count 11.32 K/ul (4.8-10.8)
[2023-04-17 08:34] LABS: BUN Creatinine Ratio 14.7 (10-20); Creatinine Clr Calc Pharmacy 83.8 ml/min; Est GFR (African American) 70.7 ml/min; Potassium 3.7 mmol/L (3.5-5.1)
[2023-04-17] MEDS: INSULIN ASPART PER UNIT CHARGE SC SCH ×2 (08:36→12:18)
[2023-04-17] MEDS: LANTUS PER UNIT CHARGE SQ SCH (08:37)
[2023-04-17] MEDS: CIPROFLOXACIN 500 MG TAB PO SCH (08:41)
[2023-04-17] MEDS ORDERED: PANTOprazole 40 MG TAB PO SCH (09:00)
[2023-04-17] MEDS ORDERED: METOPROLOL SUCC 50MG EXT REL TAB PO SCH (09:00)
[2023-04-17] MEDS ORDERED: AMIODARONE 200 MG TAB PO SCH (09:00)
[2023-04-17] MEDS ORDERED: LOSARTAN POTASSIUM 50 MG TAB PO SCH (09:00)
[2023-04-17] MEDS ORDERED: FUROSEMIDE 40 MG TAB PO SCH (09:00)
[2023-04-17 09:31] LABS: Estimated Average Glucose 180 mg/dl; Hemoglobin A1C 7.9 % (4.5-5.6)
--- NOTE | 2023-04-17 12:39 | Urology Progress Note ---
Date of Service April 17, 2023 Assessment & Plan (1) Kidney stones: (2) S/P ureteral stent placement: (3) Postoperative hypoxia: Plan 57yo/F admitted to urology service status post bilateral ureteroscopy, laser lithotripsy and stent placement with Dr. Jiang 04/16/23 - Admitted postoperatively due to hypoxia. - Hospital medicine consulted, appreciate assistance and recommendations - Overall doing well - Afebrile and hemodynamically stable. - Labs reviewed -WBC 11.32, hemoglobin 12.1, creatinine 1.02. - Tolerating the ureteral stents with minimal bother. - Ambulating without issue. - Tolerating diet. - Minimal pain. - Discussed with hospital team- OK for discharge today from their perspective. - Pt is stable for discharge home today. - Will arrange postoperative follow-up with urology service. - Discharge instructions reviewed, all questions were answered. Admission and Anticipated Discharge Date Admission Date: April 16, 2023 Subjective Patient examined at bedside this AM. Awake, sitting up in bed on arrival. No acute distress. Admitted yesterday postoperatively due to hypoxia. Currently on room air. Denies fevers, chills, nausea, vomiting. Tolerating the ureteral stents with minimal bother. Denies chest pain, shortness of breath, dizziness, or lightheadedness. Voiding without issue. Review of Systems Constitutional: as per Subjective / HPI Gastrointestinal: as per Subjective / HPI Genitourinary: as per Subjective / HPI Physical Exam Constitutional: no acute distress Respiratory: no respiratory distress and no labored breathing Skin: No visible rashes or lesions to exposed skin areas Neurologic: moves all extremities and awake Psychiatric: A+Ox3, euthymic affect Results & Data Vital Signs (Past 12 Hours) Vital Signs Temp Pulse Resp BP Pulse Ox O2 Del Method O2 Flow Rate 04/17/23 10:06 92 Room Air 04/17/23 07:30 92 Nasal Cannula 1 04/17/23 07:20 Room Air 04/17/23 07:15 18 95 Room Air 04/17/23 07:11 36.6 C 77 18 144/80 H 96 Nasal Cannula 2 04/17/23 03:00 37.3 C 75 18 132/83 96 Nasal Cannula 2 PG Care Time/CCT Total # of Minutes Spent Total Time Spent with Patient: Total time spent is greater than 50% in coordination of care (as documented) at patient's floor/unit and/or counseling patient: Coding Level of Care Code 79477 SUB INP/OBS CARE 235MIN Diagnoses Kidney stones N20.0 S/P ureteral stent placement Z96.0 Postoperative hypoxia R09.02; Z98.890
--- NOTE | 2023-04-17 14:48 | Hospitalist Progress Note ---
Date of Service April 17, 2023 Assessment & Plan (1) S/P ureteral stent placement: Plan (1) Kidney stones: This is a 57 y/o female with a PMH of recurrent nephrolithiasis, atrial flutter, dilated cardiomyopathy with severe LV dysfunction (EF ~20%), insulin-requiring DM, HTN, GERD, and dyslipidemia who underwent cystoscopy with bilateral ureteroscopy, lithotripsy, and ureteral stent exchange 04/16/[address] Jiang. Post-operatively she was noted to have hypoxia requiring 2-3L of O2 to maintain sats. Chest x-ray concerning for pulmonary edema so furosemide 40 mg IV x 1 dose ordered. Pt reported respiratory status is starting to improve though still requiring O2. 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 - Pain control per primary team - Encourage incentive spirometry - may have component of post-op atelectasis - Encourage incentive spirometer, patient afebrile, leukocytosis stable/trending down. -Continue with home BP meds including Lasix. Patient advised to maintain fluid restriction of 2 L/day. - Recommend resuming Eliquis once okay with primary team - pt on due to hx PAF (2) Postoperative hypoxia: (3) Diabetes mellitus, type 2: Basal insulin ordered Insulin sliding scale coverage Hold Metformin while admitted A1c improving compared to recent past BSG ACHS (4) Atrial flutter: (5) Hypertension: Patient okay to be discharged from medical standpoint. Admission and Anticipated Discharge Date Admission Date: April 16, 2023 Subjective Patient was seen and examined at bedside. Patient was sitting up in bed, on room air, reports no shortness of breath, reports feeling back to baseline. Patient advised to limit fluid intake to 2 L/day, advised to maintain ambulation frequently. Patient denies headache or dizziness, patient denies any pain. Physical Exam Physical Exam: General: awake, alert, NAD HEENT: no scleral icterus, slightly dry oral mucosa Neck: trachea midline Heart: regular but tachycardic Lungs: mildly diminished breath sounds but no wheezes. no crackles. Abdomen: soft, +BS Extremities: no pitting ble edema, lymphedema noted. Skin: no jaundice Neurologic: moving all extremities, oriented x 3, no confusion or dysarthria Results & Data Results & Data Vital Signs (Past 12 Hours) Vital Signs Temp Pulse Resp BP Pulse Ox O2 Del Method O2 Flow Rate 04/17/23 14:06 36.6 C 77 18 144/80 H 92 04/17/23 10:06 92 Room Air 04/17/23 07:30 92 Nasal Cannula 1 04/17/23 07:20 Room Air 04/17/23 07:15 18 95 Room Air 04/17/23 07:11 36.6 C 77 18 144/80 H 96 Nasal Cannula 2 04/17/23 03:00 37.3 C 75 18 132/83 96 Nasal Cannula 2
--- NOTE | 2023-04-17 16:22 | Discharge Summary ---
Date of Service April 17, 2023 Admission HPI Per Admitting Provider 57-year-old female admitted postoperatively status post cystoscopy with bilateral retrograde pyelogram, ureteroscopy, stone treatment, and stent placement with Dr. Jiang Admission Exam Per Admitting Provider Constitutional well developed, well nourished and + morbidly obese Respiratory normal respiratory effort; no respiratory distress and no labored breathing Gastrointestinal (Abdomen) Inspection/Auscultation: abdomen normal to inspection Musculoskeletal Head/Neck/Chest: normocephalic Ambulates with cane Neurologic moves all extremities and awake Psychiatric Orientation: alert and oriented x 3 Principal Diagnosis Nephrolithiasis, right ureteral and renal stones, left renal stone Discharge Exam Constitutional: no acute distress Respiratory: no respiratory distress and no labored breathing Skin: No visible rashes or lesions to exposed skin areas Neurologic: moves all extremities and awake Psychiatric: A+Ox3, euthymic affect Discharge Data Allergies Allergy/AdvReac Type Severity Reaction Status Date / Time lisinopril Allergy Severe Anaphylaxis Verified 04/16/23 06:32 atorvastatin Allergy Intermediate Hives - Verified 04/16/23 06:32 itchy Consultations 04/16/23 12:29 Consult Hospitalist Routine 04/16/23 13:39 Consult Hospitalist Routine Procedures Performed Operation Date: 04/16/23 08:10 Actual Procedures p Cystoscopy, Right Ureteroscopy, Laser Lithotripsy, Right Retrograde Pyelogram, Left Ureteral Dilation, Left Ureteroscopy, Left Retrograde Pyelogram, Stone Basket Extraction, (Bilateral) - Win Jiang DO s Exchange of Bilateral Stent Catheter(Bilateral) - Win Jiang DO Ordered Studies 04/16/23 [place] retrograde includes kub Routine Hospital Course (1) Kidney stones: (2) S/P ureteral stent placement: (3) Postoperative hypoxia: Plan 57yo/F admitted to urology service status post bilateral ureteroscopy, laser lithotripsy and stent placement with Dr. Jiang 04/16/23 - Admitted postoperatively due to hypoxia. - Hospital medicine consulted, appreciate assistance and recommendations - Overall doing well - Afebrile and hemodynamically stable. - Labs reviewed -WBC 11.32, hemoglobin 12.1, creatinine 1.02. - Tolerating the ureteral stents with minimal bother. - Ambulating without issue. - Tolerating diet. - Minimal pain. - Patient on room air. Reports no shortness of breath and feeling back to baseline. - Discussed with hospital team- OK for discharge today from their perspective. - Pt is stable for discharge home today. - Will arrange postoperative follow-up with urology service. - Discharge instructions reviewed, all questions were answered. Total Time Total Time Spent Total Time Spent (In Minutes): 15 Discharge Plan Discharge Items Patient Disposition: Home - Self-Care Reason For Visit: Calcium Nephrolithiasis Discharge Diagnosis: Same Activity: Resume your previous activity Lifting: No more than 50 pounds Non-emergency contact: Surgeon and Urologist Call non-emergency contact if: you have any medication questions, your pain is not controlled, your pain is worsening, your pain is unusual for you, your pain is concerning for you, you have a fever and your temperature is above 101.5 Follow-up/Referrals: Win Jiang DO [Physician] - Jessica Taylor MD [Primary Care Provider] - Diet: Regular Addtl Attending Provider Instructions: Please take all medications as prescribed and keep all follow-ups as scheduled. Please call our office at [phone] with any questions, concerns or need to reschedule appointments for any reason. We are happy to assist you. The urology office will contact you to arrange a follow-up visit. While you have a ureteral stent in place: Some discomfort is normal. Certain movements may trigger pain or a feeling that you need to urinate. You may also feel mild soreness or pressure before or during urination. Your urine may be slightly pink or red. This is due to bleeding caused by minor irritation from the stent. This may happen on and off while you have the stent, it is not harmful and is to be expected. Medication to help minimize discomfort or bladder spasms, or to prevent infection may be prescribed. Take this as directed. Drink plenty of fluids to help flush out your urinary tract. When to call [facility] at [phone]: Your urine contains heavy blood clots or you are unable to urinate You are constantly leaking urine Fever of 101F or higher, chills, nausea, or vomiting Your pain is not relieved with medication The end of the stent comes out of your urethra Pending Studies at Discharge: No Stand-Alone Forms: Anesthesia/Sedation, Adult, My [employer], Smoking Cessation Medications and DC Order Prescriptions: New phenazopyridine [Pyridium] 200 mg tablet 200 mg PO Q8H PRN (Reason: pain) Qty: 10 0RF tamsulosin 0.4 mg capsule 0.4 mg PO HS Qty: 30 0RF oxycodone-acetaminophen [Percocet] 7.5-325 mg tablet 1 tab PO Q8H PRN (Reason: pain) Qty: 7 0RF ciprofloxacin HCl [Cipro] 500 mg tablet 500 mg PO Q12H Qty: 10 0RF Continued amiodarone 200 mg Tablet 200 mg PO QAM Qty: 30 0RF metoprolol succinate 50 mg Tablet Extended Release 24 Hr 50 mg PO QAM Qty: 30 0RF insulin glargine-yfgn [Semglee(insulin glarg-yfgn)Pen] 100 unit/mL (3 mL) insulin pen 50 unit SUBCUT HS Qty: 15 0RF metformin 500 mg tablet 500 mg PO BID furosemide 40 mg tablet 40 mg PO QAM amlodipine 2.5 mg tablet 2.5 mg PO HS oxycodone 5 mg tablet 5 mg PO Q6H PRN (Reason: pain) Qty: 15 0RF phenazopyridine [Pyridium] 200 mg tablet 200 mg PO Q8H PRN (Reason: pain) Qty: 10 0RF tamsulosin 0.4 mg capsule 0.4 mg PO HS Qty: 30 0RF oxycodone-acetaminophen [Percocet] 7.5-325 mg tablet 1 tab PO Q8H PRN (Reason: pain) Qty: 7 0RF cyanocobalamin (vitamin B-12) 1,000 mcg Tablet 1,000 mcg PO QAM cholecalciferol (vitamin D3) 25 mcg (1,000 unit) Capsule 25 mcg PO QAM omeprazole magnesium [Prilosec OTC] 20 mg Tablet,Delayed Release (Dr/Ec) 20 mg PO QAM Eliquis 5 mg Tablet 5 mg PO BID 30 Days Qty: 60 2RF losartan 50 mg tablet 50 mg PO QAM Ozempic 1 mg/dose (4 mg/3 mL) pen injector 0.5 mg SUBCUT Q7D Rx Instructions: On Thursday Discharge Orders: Discharge Order (Routine); Ordered 04/17/23 Ordered By: Josie Connor/Other Patient Handouts: DVT Post Op Prevention, Anatomy of the Female Urinary Tract, Exercise to Help Your Kidneys, ED Kidney Stone with Pain Admission Data Admit Date/Time: 04/16/23 13:36 Attending Provider: Win Jiang Admit Provider: Win Jiang Primary Care Provider: Jessica Taylor Other Providers: Alisa Al; Gillian Enriquez Other Interventions: Discharge Summary Assessment (RN) Last Done: 04/17/23 14:06 Coding Level of Care Code 88778 IN/OBS DISCH 30 MIN/LESS Diagnoses Kidney stones N20.0 S/P ureteral stent placement Z96.0 Postoperative hypoxia R09.02; Z98.890
== END 2023-04-17 14:49 | disposition home or self-care (01) ==
LOC: 3E 06:20 → ASU 06:20